=== PATIENT | male | born 1945 | race Caucasian/White ===

== ENCOUNTER → 2016-10-17 | Outpatient (CLI) | payer MEDICARE ==
[2016-10-17 09:27] LABS: AST 83 U/L (17-59); Alkaline Phosphatase 156 U/L (38-126); Anion Gap 12 mmol/L; Blood Urea Nitrogen 13 mg/dL (9-20); Calcium 9.5 mg/dL (8.4-10.2); Carbon Dioxide 21 mmol/L (22-30); Chloride 107 mmol/L (98-107); Cholesterol 147 mg/dL (<200); Glucose 267 mg/dL (74-99); HDL Cholesterol 38 mg/dL (40-60); Non-African American GFR(MDRD) >60 (>60 ml/min/1.73 sqM); Potassium 4.2 mmol/L (3.5-5.1); Sodium 140 mmol/L (137-145); Total Bilirubin 0.8 mg/dL (0.2-1.3); Total Protein 6.9 g/dL (6.3-8.2); Triglycerides 227 mg/dL (<150)
[2016-10-17 09:34] LABS: ALT 68 U/L (21-72)
== END | disposition home or self-care (01) ==
LOC: LABWHC1 08:15
PROVIDERS: ATTEND Internal Medicine Endocrinology, Diabetes & Metabolism
DX: E11.65 Type 2 diabetes mellitus with hyperglycemia (principal)
CPT/HCPCS: 36415; 80053; 80061; 82043

== ENCOUNTER → 2016-10-25 | Outpatient (CLI) | payer MEDICARE ==
--- NOTE | 2016-10-25 18:42 | MR ---
EXAMINATION TYPE: MR brain wo con DATE OF EXAM: 10/25/2016 COMPARISON: NONE HISTORY: tremors CONTRAST: Performed utilizing 0 mL intravenous MultiHance gadolinium contrast. TECHNIQUE: Multiplanar, multiecho imaging on a 3.0 Justine magnet is performed through the brain. Stud y is performed within 24 hours of arrival to the hospital. The craniovertebral junction is normal. The pituitary is normal. Diffusion-weighted imaging is performed. No abnormal hyperintensity is present to suggest an acute i ntracranial infarct or acute ischemic change. There are scattered punctate areas of hyperintensity on T2 and Inversion Recovery weighted sequences which are non-specific but can be related to microvascular ischemic changes. Ventricles and sulci are prominent for the patient age. Cerebellar pontine angles are clear. Internal auditory canals appear unremarkable. Mucosal thickening is within ethmoid air cells right frontal sinus and left maxillary sinus. IMPRESSIONS: 1. Multiple bilateral scattered punctate white matter changes which are nonspecific. Correlate for ch ronic appearing microvascular ischemic change. Vasculitis Lyme disease multiple sclerosis are conside red within the differential. 2. Age-related atrophy. 3. Paranasal sinus disease
== END | disposition home or self-care (01) ==
LOC: RADMRIMAIN 17:43
PROVIDERS: ATTEND Psychiatry & Neurology Pain Medicine
DX: R90.82 White matter disease, unspecified (principal); G31.1 Senile degeneration of brain, not elsewhere classified
CPT/HCPCS: 70551

== ENCOUNTER → 2016-11-02 | Outpatient (CLI) | payer MEDICARE ==
--- NOTE | 2016-11-02 15:24 | NM ---
EXAMINATION TYPE: NM DatScan Brain SPECT DATE OF EXAM: 11/02/2016 COMPARISON: NONE HISTORY: Trauma. TECHNIQUE: 10 drops of Lugol's solution was administered 1 hour prior to injection as a thyroid bloc veto agent. After the administration of 4.5 mCi I-123 Ioflupane DaTscan. Images obtained [address] injection. SPECT images of the brain were acquired with axial and coronal reconstructions. FINDINGS: There is a normal comma shape to the striata. There is symmetric activity. IMPRESSION: NORMAL NUCLEAR MEDICINE DATSCAN STUDY.
== END ==
LOC: RADNMMAIN 09:42
PROVIDERS: ATTEND Psychiatry & Neurology Neurology
DX: R25.1 Tremor, unspecified (principal)
CPT/HCPCS: 78607; A9584

== ENCOUNTER 2017-04-15 00:36 | Emergency (ER) | payer MEDICARE ==
[2017-04-15 00:43] LABS: Glucose,Whole Blood 306 mg/dL (75-99)
[2017-04-15 00:46] VITALS: RESP 18
[2017-04-15] MEDS ORDERED: SODIUM CHLORIDE 0.9% 1,000 ML IV STA (00:54)
--- NOTE | 2017-04-15 01:10 | ED ---
General Adult HPI - General Chief complaint: Recheck/Abnormal Lab/Rx Stated complaint: abnormal labs Time Seen by Provider: 04/15/17 00:48 Source: patient, RN notes reviewed Mode of arrival: ambulatory Limitations: no limitations - History of Present Illness Initial comments: 72-year-old male presents to the emergency department with a chief complaint of of hyperglycemia. Patient states he has not been compliant with his insulin. He states that he went to have blood work at the [place] and they called him and told him to come to the ER due to elevated glucose. He states that his symptoms. He states that he just does not always take his insulin that he forgets. No nausea no vomiting no abdominal pain. He states he feels normal. Patient denies any recent fever, chills, shortness of breath, chest pain, back pain, abdominal pain, nausea vomiting, numbness or tingling, dysuria or hematuria, constipation or diarrhea, headaches or visual changes, or any other current symptoms. - Related Data Home Medications Medication Instructions Recorded Confirmed Albuterol Sulfate [Proventil Hfa] 1 - 2 puff INHALATION Q6HR PRN 11/03/14 Atenolol [Tenormin] 25 mg PO HS 11/03/14 01/14/15 Budesonide/Formoterol Fumarate 2 puff INHALATION BID 11/03/14 01/14/15 [Symbicort 160-4.5 Mcg Inhaler] Citalopram Hydrobromide 40 mg PO DAILY 11/03/14 01/14/15 [Citalopram HBr] Levothyroxine Sodium [Synthroid] 50 mcg PO DAILY 11/03/14 01/14/15 Losartan Potassium [Cozaar] 100 mg PO DAILY 11/03/14 01/14/15 Novolog Insulin Pump 80 - 90 unit SQ DAILY PRN 11/03/14 01/14/15 Omeprazole 40 mg PO BID 11/03/14 01/14/15 metFORMIN HCL 1,000 mg PO BID 11/03/14 01/14/15 Nitroglycerin Sl Tabs [Nitrostat] 0.4 mg SUBLINGUAL Q5M PRN 01/12/15 01/12/15 Allergies Allergy/AdvReac Type Severity Reaction Status Date / Time Penicillins Allergy Rash/Hives Verified 04/15/17 00:37 Review of Systems ROS Statement: Those systems with pertinent positive or pertinent negative responses have been documented in the HPI. ROS Other: All systems not noted in ROS Statement are negative. 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 SPEARS- LAST ONE A MONTH AGO, DALY' S ESOPHAGUS History of Any Multi-Drug Resistant Organisms: None Reported Past Surgical History: Appendectomy, Heart Catheterization, Hernia Repair Additional Past Surgical History / Comment(s): COLONOSCOPY,REMOVAL OF MELANOMA OFF LT EYELID WITH SKIN GRAFT, RIGHT ING HERNIA & UMBILICAL HERNIA REPAIR, EXC. CATARACT RT EYE WITH LENS IMPLANT Past Anesthesia/Blood Transfusion Reactions: No Reported Reaction Past Psychological History: No Psychological Hx Reported Smoking Status: Former smoker Past Alcohol Use History: Occasional Past Drug Use History: None Reported - Past Family History Mother Family Medical History: Cancer, Hypertension Additional Family Medical History / Comment(s): COLON CA Father Additional Family Medical History / Comment(s): HEART PROBLEMS General Exam - General Exam Comments Initial Comments: General: The patient is awake and alert, in no distress, and does not appear acutely ill. Eye: Pupils are equal, round and reactive to light, extra-ocular movements are intact; there is normal conjunctiva bilaterally. No signs of icterus. Ears, nose, mouth and throat: There are moist mucous membranes. Neck: The neck is supple, there is no tenderness. Cardiovascular: There is a regular rate and rhythm. No murmur, rub or gallop is appreciated. Respiratory: Lungs are clear to auscultation, respirations are non-labored, breath sounds are equal. No wheezes, stridor, rales, or rhonchi. Gastrointestinal: Soft, non-distended, non-tender abdomen without masses or organomegaly noted. There is no rebound or guarding present. No CVA tenderness. Bowel sounds are unremarkable. Back: There is no tenderness to palpation in the midline. There is no obvious deformity. No rashes noted. Musculoskeletal: Normal ROM, no tenderness, There is no pedal edema. There is no calf tenderness or swelling. Sensation intact. Pulses equal bilaterally 2+. Neurological: CN II-XII intact, There are no obvious motor or sensory deficits. Coordination appears grossly intact. Speech is normal. Skin: Skin is warm and dry and no rashes or lesions are noted. Psychiatric: Cooperative, appropriate mood & affect, normal judgment. Limitations: no limitations Course Vital Signs 04/15/17 00:37 Temperature 97.6 F Pulse Rate 97 Respiratory 18 Rate Blood Pressure 184/88 O2 Sat by Pulse 100 Oximetry Medical Decision Making - Medical Decision Making 72-year-old male presents emergency department with a chief complaint of hyperglycemia. At this time patient's lab work is otherwise stable. We did educate about the importance of treating his diabetes. We did educate the importance of following up or return parameters and all questions. He stated that he understood and he is in agreement with this plan. All questions have been answered. He will be discharged home. - Lab Data Result diagrams: 04/15/17 01:14 04/15/17 01:14 Lab Results 04/15/17 04/15/17 04/15/17 Range/Units 00:40 01:14 01:14 WBC 7.2 (3.8-10.6) k/uL RBC 5.13 (4.30-5.90) m/uL Hgb 12.7 L (13.0-17.5) gm/dL Hct 39.6 (39.0-53.0) % MCV 77.2 L (80.0-100.0) fL MCH 24.7 L (25.0-35.0) pg MCHC 32.0 (31.0-37.0) g/dL RDW 19.1 H (11.5-15.5) % Plt Count 161 (150-450) k/uL Neutrophils % 51 % Lymphocytes % 39 % Monocytes % 5 % Eosinophils % 4 % Basophils % 1 % Neutrophils # 3.7 (1.3-7.7) k/uL Lymphocytes # 2.8 (1.0-4.8) k/uL Monocytes # 0.4 (0-1.0) k/uL Eosinophils # 0.3 (0-0.7) k/uL Basophils # 0.0 (0-0.2) k/uL Hypochromasia Marked Poikilocytosis Slight Anisocytosis Slight Microcytosis Slight Sodium 139 (137-145) mmol/L Potassium 4.1 (3.5-5.1) mmol/L Chloride 105 (98-107) mmol/L Carbon Dioxide 21 L (22-30) mmol/L Anion Gap 13 mmol/L BUN 20 (9-20) mg/dL Creatinine 1.00 (0.66-1.25) mg/dL Est GFR (MDRD) Af Amer >60 (>60 ml/min/1.73 sqM) Est GFR (MDRD) Non-Af >60 (>60 ml/min/1.73 sqM) Glucose 285 H (74-99) mg/dL POC Glucose (mg/dL) 306 H (75-99) mg/dL POC Glu Dynamite Reclaimer ID Xenia Delgado Calcium 9.5 (8.4-10.2) mg/dL Phosphorus 3.4 (2.5-4.5) mg/dL Magnesium 1.9 (1.6-2.3) mg/dL Total Bilirubin 0.5 (0.2-1.3) mg/dL AST 65 H (17-59) U/L ALT 66 (21-72) U/L Alkaline Phosphatase 201 H (38-126) U/L Total Protein 7.2 (6.3-8.2) g/dL Albumin 4.2 (3.5-5.0) g/dL Amylase 80 (30-110) U/L Lipase 117 (23-300) U/L Urine Color Urine Appearance (Clear) Urine pH (5.0-8.0) Ur Specific [place] (1.001-1.035) Urine Protein (Negative) Urine Glucose (UA) (Negative) Urine Ketones (Negative) Urine Blood (Negative) Urine Nitrite (Negative) Urine Bilirubin (Negative) Urine Urobilinogen (<2.0) mg/dL Ur Leukocyte Esterase (Negative) Acetone, Qual Negative (Negative) 04/15/17 Range/Units 01:14 WBC (3.8-10.6) k/uL RBC (4.30-5.90) m/uL Hgb (13.0-17.5) gm/dL Hct (39.0-53.0) % MCV (80.0-100.0) fL MCH (25.0-35.0) pg MCHC (31.0-37.0) g/dL RDW (11.5-15.5) % Plt Count (150-450) k/uL Neutrophils % % Lymphocytes % % Monocytes % % Eosinophils % % Basophils % % Neutrophils # (1.3-7.7) k/uL Lymphocytes # (1.0-4.8) k/uL Monocytes # (0-1.0) k/uL Eosinophils # (0-0.7) k/uL Basophils # (0-0.2) k/uL Hypochromasia Poikilocytosis Anisocytosis Microcytosis Sodium (137-145) mmol/L Potassium (3.5-5.1) mmol/L Chloride (98-107) mmol/L Carbon Dioxide (22-30) mmol/L Anion Gap mmol/L BUN (9-20) mg/dL Creatinine (0.66-1.25) mg/dL Est GFR (MDRD) Af Amer (>60 ml/min/1.73 sqM) Est GFR (MDRD) Non-Af (>60 ml/min/1.73 sqM) Glucose (74-99) mg/dL POC Glucose (mg/dL) (75-99) mg/dL POC Glu Dynamite Reclaimer ID Calcium (8.4-10.2) mg/dL Phosphorus (2.5-4.5) mg/dL Magnesium (1.6-2.3) mg/dL Total Bilirubin (0.2-1.3) mg/dL AST (17-59) U/L ALT (21-72) U/L Alkaline Phosphatase (38-126) U/L Total Protein (6.3-8.2) g/dL Albumin (3.5-5.0) g/dL Amylase (30-110) U/L Lipase (23-300) U/L Urine Color Yellow Urine Appearance Clear (Clear) Urine pH 5.5 (5.0-8.0) Ur Specific [place] 1.029 (1.001-1.035) Urine Protein Negative (Negative) Urine Glucose (UA) 4+ H (Negative) Urine Ketones Negative (Negative) Urine Blood Negative (Negative) Urine Nitrite Negative (Negative) Urine Bilirubin Negative (Negative) Urine Urobilinogen <2.0 (<2.0) mg/dL Ur Leukocyte Esterase Negative (Negative) Acetone, Qual (Negative) Disposition Clinical Impression: Hyperglycemia due to type 2 diabetes mellitus Disposition: HOME SELF-CARE Condition: Stable Instructions: Diabetic Hyperglycemia (ED) Additional Instructions: Please use medication as discussed. Please follow up with family doctor if symptoms have not improved over the next two days. Please return to the emergency room if your symptoms increase or worsen or for any other concerns. Referrals: Chana Shoemaker MD [Primary Care Provider] - 1-2 days Time of Disposition: 02:08
[2017-04-15 01:25] LABS: Appearance,Urine Clear (Clear); Bilirubin,Urine Negative (Negative); Glucose,Urine (UA) 4+ (Negative); Ketones,Urine Negative (Negative); Leukocyte Esterase,Urine Negative (Negative); Nitrite,Urine Negative (Negative); PH, Urine 5.5 (5.0-8.0); Protein,Urine Negative (Negative); Specific Gravity,Urine 1.029 (1.001-1.035); UA Billing (MACRO vs. MICRO) CHEM; Urobilinogen,Urine <2.0 mg/dL (<2.0)
[2017-04-15 01:26] LABS: Anisocytosis Slight; Basophils % (A) 1 %; CH 23.4; CHCM 30.6; Eosinophils # (A) 0.3 k/uL (0-0.7); Eosinophils % (A) 4 %; HCT 39.6 % (39.0-53.0); HDW 3.42; HGB 12.7 gm/dL (13.0-17.5); Hypochromasia Marked; Luc # (Auto) 0.09; Luc % (Auto) 1; Lymphocytes # (A) 2.8 k/uL (1.0-4.8); Lymphocytes % (A) 39 %; MCH 24.7 pg (25.0-35.0); MCV 77.2 fL (80.0-100.0); Mean Platelet Volume 8.3; Microcytosis Slight; Monocytes # (A) 0.4 k/uL (0-1.0); Monocytes % (A) 5 %; Neutrophils # (A) 3.7 k/uL (1.3-7.7); Neutrophils % (A) 51 %; Poikilocytosis Slight; RBC 5.13 m/uL (4.30-5.90); RDW 19.1 % (11.5-15.5); WBC 7.2 k/uL (3.8-10.6)
[2017-04-15 01:41] LABS: ALT 66 U/L (21-72); AST 65 U/L (17-59); Alkaline Phosphatase 201 U/L (38-126); Amylase 80 U/L (30-110); Anion Gap 13 mmol/L; Blood Urea Nitrogen 20 mg/dL (9-20); Calcium 9.5 mg/dL (8.4-10.2); Carbon Dioxide 21 mmol/L (22-30); Chloride 105 mmol/L (98-107); Glucose 285 mg/dL (74-99); Magnesium 1.9 mg/dL (1.6-2.3); Non-African American GFR(MDRD) >60 (>60 ml/min/1.73 sqM); Phosphorus 3.4 mg/dL (2.5-4.5); Potassium 4.1 mmol/L (3.5-5.1); Sodium 139 mmol/L (137-145); Total Bilirubin 0.5 mg/dL (0.2-1.3); Total Protein 7.2 g/dL (6.3-8.2)
[2017-04-15 02:29] VITALS: BP 149/69; PULSE 84; TEMP 98.1
== END 2017-04-15 02:27 | disposition home or self-care (01) ==
LOC: EC 00:36
DX: E11.65 Type 2 diabetes mellitus with hyperglycemia (principal); J45.909 Unspecified asthma, uncomplicated; K21.9 Gastro-esophageal reflux disease without esophagitis; I10 Essential (primary) hypertension; E07.9 Disorder of thyroid, unspecified; Z85.820 Personal history of malignant melanoma of skin; Z87.891 Personal history of nicotine dependence; Z79.4 Long term (current) use of insulin; Z79.51 Long term (current) use of inhaled steroids; Z79.899 Other long term (current) drug therapy; Z88.0 Allergy status to penicillin
CPT/HCPCS: 36415; 80053; 81003; 82009; 82150; 83690; 83735; 84100; 85025; 96360; 99283

== ENCOUNTER 2017-09-08 06:26 | Day surgery (SDC) | payer MEDICARE ==
[2017-09-06 14:46] VITALS: BMI 32.8
[~2017-09-08 06:26] MED LIST: LACTATED RINGERS 1,000 ML IV SCH
[2017-09-08 07:01] VITALS: TEMP 98.3
[2017-09-08 07:11] LABS: Glucose,Whole Blood 359 mg/dL (75-99)
[2017-09-08] MEDS ORDERED: LIDOCAINE 1% 20 ML VIAL (10MG/ML) FOR IV START INTRADERMA ONE (07:14)
[2017-09-08] MEDS ORDERED: INSULIN ASPART 100 UNIT/ML 1 ML 10 ML VIAL SQ ONE (07:15)
[2017-09-08] MEDS ORDERED: PROPOFOL 10 MG/ML 20 ML VIAL IV ONE (07:39)
--- NOTE | 2017-09-08 08:02 | P.PCN ---
Date of Procedure: 09/08/17 Procedure(s) Performed: BRIEF HISTORY: Patient is a 72-year-old, pleasant, white male, scheduled for an upper endoscopy as a part of evaluation of long-standing history of Leonard's esophagus and gastroesophageal reflux disease. He states that he has been having black tarry stools for the last 1 month duration. His last upper endoscopy was in and colonoscopy was in December 2014. Because of the black tarry stools scheduled for an upper endoscopy today. PROCEDURE PERFORMED: Esophagogastroduodenoscopy with biopsy. PREOPERATIVE DIAGNOSIS: History of Leonard's esophagus/GERD and Melena of 1 month duration IV sedation per anesthesia. PROCEDURE: After informed consent was obtained, the patient was brought into the endoscopy unit. IV sedation was administered by Anesthesia under continuous monitoring. Initially the Olympus GIF-140 video endoscope was inserted into the mouth. Esophagus intubated without any difficulty. It was gradually advanced into the stomach and duodenum and carefully examined. The bulb and the second part of the duodenum appeared normal. The scope at this time was withdrawn to the stomach, adequately insufflated with air, and upon careful examination, mucosa of the antrum, body, cardia and the fundus appeared normal. The scope was then withdrawn into the esophagus. Moderate size hiatal hernia noted. The GE junction was located at 35 cm from the incisors. There was long segment of Leonard's esophagus extended from 25-35 cm from incisors and multiple biopsies were done from this area. There was a small fissure ulceration noted at 35 cm from incisors in the segment of Leonard's esophagus measuring 5 mm which was also biopsied. The rest of the esophagus appeared normal and the patient tolerated the procedure well. IMPRESSION: 1. Long segment Leonard's esophagus extended from 25-35 cm from the incisors status post multiple biopsies to rule out dysplasia. 2. 5 mm superficial ulcer in the segment of Leonard's esophagus at 39 cm from the incisors status post biopsy. RECOMMENDATIONS: The findings of this examination were discussed with the patient as well as his family. He was advised to follow with the biopsy results. He will continue with Prilosec 20 mg twice daily and follow antireflux measures. He will be seen in the office in 2-3 weeks. If he still remains persistently anemic we will consider a small bowel capsule endoscopy to investigate further.
[2017-09-08 08:03] VITALS: RESP 20
[2017-09-08 08:07] LABS: Glucose,Whole Blood 356 mg/dL (75-99)
[2017-09-08 08:21] VITALS: BP 159/84; PULSE 69
== END 2017-09-08 08:55 | disposition home or self-care (01) ==
LOC: ORWHC2ENDO 06:26
PROVIDERS: ATTEND Internal Medicine Gastroenterology
DX: K22.70 Barrett's esophagus without dysplasia (principal); K21.0 Gastro-esophageal reflux disease with esophagitis; K44.9 Diaphragmatic hernia without obstruction or gangrene; K92.1 Melena; I10 Essential (primary) hypertension; I25.10 Atherosclerotic heart disease of native coronary artery without angina pectoris; J45.909 Unspecified asthma, uncomplicated; E11.9 Type 2 diabetes mellitus without complications; F32.9 Major depressive disorder, single episode, unspecified; Z79.84 Long term (current) use of oral hypoglycemic drugs; Z79.82 Long term (current) use of aspirin; Z79.4 Long term (current) use of insulin; Z79.899 Other long term (current) drug therapy; Z88.0 Allergy status to penicillin
CPT/HCPCS: 88305; 43239; J2704

== ENCOUNTER → 2017-09-25 | Outpatient (CLI) | payer MEDICARE ==
[2017-09-25 09:02] LABS: Anisocytosis Moderate; HCT 40.8 % (39.0-53.0); HGB 12.7 gm/dL (13.0-17.5); Hypochromasia Slight; MCH 26.5 pg (25.0-35.0); MCHC 31.1 g/dL (31.0-37.0); MCV 85.3 fL (80.0-100.0); Mean Platelet Volume 7.7; Microcytosis Slight; Platelet Count 139 k/uL (150-450); RBC 4.78 m/uL (4.30-5.90); RDW 20.5 % (11.5-15.5); WBC 5.4 k/uL (3.8-10.6)
[2017-09-25 17:48] LABS: Iron Saturation 15.59 (15.00-50.00)
== END | disposition home or self-care (01) ==
LOC: LABWHC1 08:26
PROVIDERS: ATTEND Internal Medicine Gastroenterology
DX: D50.9 Iron deficiency anemia, unspecified (principal)
CPT/HCPCS: 36415; 82728; 83540; 83550; 85027

== ENCOUNTER 2017-10-17 11:13 | Emergency (ER) | payer MEDICARE ==
[2017-10-17 12:08] LABS: Anisocytosis Moderate; Appearance,Urine Clear (Clear); Basophils % (A) 0 %; Bilirubin,Urine Negative (Negative); Blood,Urine Negative (Negative); Color,Urine Yellow; Eosinophils # (A) 0.1 k/uL (0-0.7); Eosinophils % (A) 1 %; Glucose,Urine (UA) 4+ (Negative); HCT 44.2 % (39.0-53.0); HGB 14.2 gm/dL (13.0-17.5); Hypochromasia Slight; Leukocyte Esterase,Urine Negative (Negative); Lymphocytes # (A) 1.5 k/uL (1.0-4.8); Lymphocytes % (A) 20 %; MCH 27.5 pg (25.0-35.0); MCV 85.8 fL (80.0-100.0); Mean Platelet Volume 7.6; Microcytosis Slight; Monocytes # (A) 0.3 k/uL (0-1.0); Monocytes % (A) 4 %; Neutrophils # (A) 5.8 k/uL (1.3-7.7); Neutrophils % (A) 73 %; Nitrite,Urine Negative (Negative); Platelet Count 165 k/uL (150-450); Poikilocytosis Slight; Protein,Urine Negative (Negative); RBC 5.15 m/uL (4.30-5.90); RDW 20.2 % (11.5-15.5); Specific Gravity,Urine 1.026 (1.001-1.035); Urobilinogen,Urine <2.0 mg/dL (<2.0); WBC 7.8 k/uL (3.8-10.6)
[2017-10-17 12:15] LABS: Ketones,Urine 3+ (Negative)
--- NOTE | 2017-10-17 12:15 | XR ---
EXAMINATION TYPE: XR KUB DATE OF EXAM: 10/17/2017 CLINICAL DATA: 72 year-old male abdominal pain, PHH COMPARISON: None FINDINGS: Lung bases are clear. No evidence for free intraperitoneal air. No dilated small bowel or air-fluid levels. Scattered air and stool seen throughout the colon extendi ng distally into the rectum. Mild stool burden. No suspicious calcifications identified. IMPRESSION: No evidence of bowel obstruction or free intraperitoneal air.
[2017-10-17 12:18] LABS: ALT 124 U/L (21-72); AST 99 U/L (17-59); Albumin 4.3 g/dL (3.5-5.0); Alkaline Phosphatase 187 U/L (38-126); Amylase 47 U/L (30-110); Anion Gap 20 mmol/L; Blood Urea Nitrogen 11 mg/dL (9-20); Calcium 9.2 mg/dL (8.4-10.2); Carbon Dioxide 17 mmol/L (22-30); Chloride 101 mmol/L (98-107); Glucose 424 mg/dL (74-99); Lipase 46 U/L (23-300); Potassium 4.5 mmol/L (3.5-5.1); Sodium 138 mmol/L (137-145); Total Bilirubin 1.4 mg/dL (0.2-1.3)
--- NOTE | 2017-10-17 12:29 | ED ---
Abdominal Pain HPI - General Chief Complaint: Abdominal Pain Stated Complaint: Lower abdominal pain Time Seen by Provider: 10/17/17 12:15 Source: patient Mode of arrival: ambulatory Limitations: no limitations - History of Present Illness Initial Comments: The patient is a 72-year-old male with a history of hypertension, diabetes who presents with a chief complaint of left lower quadrant abdominal pain. The patient says is been going on for about a month however acutely worse for last couple of days. The patient cannot identify an inciting incident. Aggravating factors include certain movements. There are are no alleviating factors except for resting. Timing is been intermittent. Patient denies any history of colitis in the past. He has a history of an appendectomy. - Related Data Home Medications Medication Instructions Recorded Confirmed Albuterol Sulfate [Proventil Hfa] 2 puff INHALATION RT-Q6H PRN 11/03/14 10/17/17 Atenolol [Tenormin] 25 mg PO DAILY 11/03/14 10/17/17 Budesonide/Formoterol Fumarate 2 puff INHALATION RT-BID 11/03/14 10/17/17 [Symbicort 160-4.5 Mcg Inhaler] metFORMIN HCL 1,000 mg PO AC-BID 11/03/14 10/17/17 Aspirin [Adult Low Dose Aspirin EC] 81 mg PO DAILY 09/06/17 10/17/17 Citalopram Hydrobromide [CeleXA] 20 mg PO DAILY 09/06/17 10/17/17 Fenofibrate 40 mg PO DAILY 09/06/17 10/17/17 Insulin Aspart [NovoLOG Flexpen] 25 units SQ AC-TID 09/06/17 10/17/17 Insulin Glargine [Lantus] 60 unit SQ BID 09/06/17 10/17/17 Losartan/Hydrochlorothiazide 1 tab PO DAILY 09/06/17 10/17/17 [Losartan-Hctz 100-25 mg Tab] Omeprazole [PriLOSEC] 20 mg PO BID 09/06/17 10/17/17 Primidone [Mysoline] 50 mg PO HS 09/06/17 10/17/17 Atorvastatin [Lipitor] 40 mg PO DAILY 10/17/17 10/17/17 Pioglitazone HCl [Actos] 15 mg PO DAILY 10/17/17 10/17/17 Previous Rx's Medication Instructions Recorded Ciprofloxacin [Cipro Susp] 500 mg PO BID 7 Days #14 ml 10/17/17 HYDROcodone/APAP 5-325MG [Horton 1 tab PO Q6HR PRN 3 Days #12 tab 10/17/17 5-325] Ibuprofen [Motrin] 800 mg PO TID #20 tab 10/17/17 metroNIDAZOLE [Flagyl] 500 mg PO Q8HR 7 Days #21 tab 10/17/17 Allergies Allergy/AdvReac Type Severity Reaction Status Date / Time Penicillins Allergy Rash/Hives Verified 10/17/17 12:53 Review of Systems ROS Statement: Those systems with pertinent positive or pertinent negative responses have been documented in the HPI. ROS Other: All systems not noted in ROS Statement are negative. Gastrointestinal: Reports: abdominal pain, nausea Past Medical History Past Medical History: Asthma, Cancer, Chest Pain / Angina, Diabetes Mellitus, GERD/Reflux, Hyperlipidemia, Hypertension, Osteoarthritis (OA), Thyroid Disorder Additional Past Medical History / Comment(s): MELANOMA LT EYELID with SKIN GRAFT , IRON IFUSIONS (RECEIVED 09/06/17), DALY'S ESOPHAGUS, PARKINSONS., TINNITUS LEFT EAR., STATES DARK BLOODY STOOLS., FATTY LIVER., LIMITED ROM RIGHT WRIST FROM SURGERY. History of Any Multi-Drug Resistant Organisms: None Reported Past Surgical History: Appendectomy, Heart Catheterization, Hernia Repair Additional Past Surgical History / Comment(s): COLONOSCOPY, MELANOMA LT EYELID WITH SKIN GRAFT, RIGHT ING HERNIA & UMBILICAL HERNIA REPAIR, CATARACT RT EYE, HIATAL HERNIA., RIGHT WRIST FUSION. Past Anesthesia/Blood Transfusion Reactions: No Reported Reaction Past Psychological History: Anxiety, Depression Smoking Status: Former smoker Past Alcohol Use History: Occasional Past Drug Use History: None Reported - Past Family History Mother Family Medical History: Cancer, Hypertension Additional Family Medical History / Comment(s): COLON CA Father Additional Family Medical History / Comment(s): HEART PROBLEMS General Exam Limitations: no limitations General appearance: alert, in no apparent distress Head exam: Present: atraumatic, normocephalic Eye exam: Present: normal appearance ENT exam: Present: normal exam Neck exam: Present: normal inspection Respiratory exam: Present: normal lung sounds bilaterally. Absent: respiratory distress, wheezes Cardiovascular Exam: Present: regular rate, normal rhythm GI/Abdominal exam: Present: soft, tenderness (Patient is tenderness in the left lower quadrant. Abdomen is non-peritoneal.). Absent: distended Rectal exam: Present: normal inspection, normal rectal tone, hemorrhoids, other (No gross blood on rectal exam,) Extremities exam: Present: normal inspection Back exam: Present: normal inspection, full ROM Neurological exam: Present: alert, oriented X3 Psychiatric exam: Present: normal affect, normal mood Skin exam: Present: warm, dry, intact Course Vital Signs 10/17/17 10/17/17 10/17/17 11:22 14:07 14:54 Temperature 99.0 F Pulse Rate 92 78 83 Respiratory 20 16 16 Rate Blood Pressure 154/73 184/88 194/97 O2 Sat by Pulse 98 98 100 Oximetry Medical Decision Making - Medical Decision Making Patient presents with a chief complaint of left lower quadrant abdominal pain. On initial evaluation, vital signs are stable, patient is in no acute distress. Patient to be evaluated with basic abdominal labs including a lipase and liver profile. Patient will be sent for computed tomography scan of the abdomen and pelvis with contrast. EKG performed at 1325 shows normal sinus rhythm with a rate of 77 bpm. EKG is otherwise unremarkable. 3:19 PM Lab evaluation this patient is unremarkable. Computed tomography scan of the abdomen and pelvis shows moderate diverticulitis of the sigmoid colon. I reevaluation, patient appears comfortable. The patient's repeat vital signs show hypertension however he did not take any of his antihypertensives today. Patient is asymptomatic. At this time, patient is stable for discharge and outpatient management. Discussed the use of ciprofloxacin and Flagyl with the patient. The patient was prescribed 3 days of Horton, and Motrin 800. Patient instructed to follow up with primary care 12 days, return to the emergency department if symptoms worsen or change. - Lab Data Result diagrams: 10/17/17 11:52 10/17/17 11:52 Lab Results 10/17/17 10/17/17 10/17/17 Range/Units 11:52 11:52 11:52 WBC 7.8 (3.8-10.6) k/uL RBC 5.15 (4.30-5.90) m/uL Hgb 14.2 (13.0-17.5) gm/dL Hct 44.2 (39.0-53.0) % MCV 85.8 (80.0-100.0) fL MCH 27.5 (25.0-35.0) pg MCHC 32.0 (31.0-37.0) g/dL RDW 20.2 H (11.5-15.5) % Plt Count 165 (150-450) k/uL Neutrophils % 73 % Lymphocytes % 20 % Monocytes % 4 % Eosinophils % 1 % Basophils % 0 % Neutrophils # 5.8 (1.3-7.7) k/uL Lymphocytes # 1.5 (1.0-4.8) k/uL Monocytes # 0.3 (0-1.0) k/uL Eosinophils # 0.1 (0-0.7) k/uL Basophils # 0.0 (0-0.2) k/uL Hypochromasia Slight Poikilocytosis Slight Anisocytosis Moderate Microcytosis Slight Sodium 138 (137-145) mmol/L Potassium 4.5 (3.5-5.1) mmol/L Chloride 101 (98-107) mmol/L Carbon Dioxide 17 L (22-30) mmol/L Anion Gap 20 mmol/L BUN 11 (9-20) mg/dL Creatinine 0.80 (0.66-1.25) mg/dL Est GFR (CKD-EPI)AfAm >90 (>60 ml/min/1.73 sqM) Est GFR (CKD-EPI)NonAf >90 (>60 ml/min/1.73 sqM) Glucose 424 H (74-99) mg/dL POC Glucose (mg/dL) (75-99) mg/dL POC Glu Inbound Customer Service Representative ID Calcium 9.2 (8.4-10.2) mg/dL Total Bilirubin 1.4 H (0.2-1.3) mg/dL AST 99 H (17-59) U/L ALT 124 H (21-72) U/L Alkaline Phosphatase 187 H (38-126) U/L Total Protein 7.0 (6.3-8.2) g/dL Albumin 4.3 (3.5-5.0) g/dL Amylase 47 (30-110) U/L Lipase 46 (23-300) U/L Urine Color Yellow Urine Appearance Clear (Clear) Urine pH 5.0 (5.0-8.0) Ur Specific [place] 1.026 (1.001-1.035) Urine Protein Negative (Negative) Urine Glucose (UA) 4+ H (Negative) Urine Ketones 3+ H (Negative) Urine Blood Negative (Negative) Urine Nitrite Negative (Negative) Urine Bilirubin Negative (Negative) Urine Urobilinogen <2.0 (<2.0) mg/dL Ur Leukocyte Esterase Negative (Negative) Stool Occult Blood (Negative) 10/17/17 10/17/17 Range/Units 12:39 13:04 WBC (3.8-10.6) k/uL RBC (4.30-5.90) m/uL Hgb (13.0-17.5) gm/dL Hct (39.0-53.0) % MCV (80.0-100.0) fL MCH (25.0-35.0) pg MCHC (31.0-37.0) g/dL RDW (11.5-15.5) % Plt Count (150-450) k/uL Neutrophils % % Lymphocytes % % Monocytes % % Eosinophils % % Basophils % % Neutrophils # (1.3-7.7) k/uL Lymphocytes # (1.0-4.8) k/uL Monocytes # (0-1.0) k/uL Eosinophils # (0-0.7) k/uL Basophils # (0-0.2) k/uL Hypochromasia Poikilocytosis Anisocytosis Microcytosis Sodium (137-145) mmol/L Potassium (3.5-5.1) mmol/L Chloride (98-107) mmol/L Carbon Dioxide (22-30) mmol/L Anion Gap mmol/L BUN (9-20) mg/dL Creatinine (0.66-1.25) mg/dL Est GFR (CKD-EPI)AfAm (>60 ml/min/1.73 sqM) Est GFR (CKD-EPI)NonAf (>60 ml/min/1.73 sqM) Glucose (74-99) mg/dL POC Glucose (mg/dL) 394 H (75-99) mg/dL POC Glu Inbound Customer Service Representative ID Xenia Noe Calcium (8.4-10.2) mg/dL Total Bilirubin (0.2-1.3) mg/dL AST (17-59) U/L ALT (21-72) U/L Alkaline Phosphatase (38-126) U/L Total Protein (6.3-8.2) g/dL Albumin (3.5-5.0) g/dL Amylase (30-110) U/L Lipase (23-300) U/L Urine Color Urine Appearance (Clear) Urine pH (5.0-8.0) Ur Specific [place] (1.001-1.035) Urine Protein (Negative) Urine Glucose (UA) (Negative) Urine Ketones (Negative) Urine Blood (Negative) Urine Nitrite (Negative) Urine Bilirubin (Negative) Urine Urobilinogen (<2.0) mg/dL Ur Leukocyte Esterase (Negative) Stool Occult Blood Positive (Negative) Disposition Clinical Impression: Diverticulitis large intestine Disposition: HOME SELF-CARE Condition: Good Instructions: Diverticulitis (ED) Is patient prescribed a controlled substance at d/c from ED?: Yes Referrals: Chana Shoemaker MD [Primary Care Provider] - 1-2 days
[2017-10-17] MEDS ORDERED: RX INFO: IV CONTRAST WAS GIVEN 1 EACH MISC MISCELLANE PRN (12:39)
[2017-10-17] MEDS: SODIUM CHLORIDE 0.9% 2,000 ML IV ONE ×2 (13:08→13:09)
[2017-10-17 13:13] LABS: Glucose,Whole Blood 394 mg/dL (75-99)
--- NOTE | 2017-10-17 14:56 | CT ---
EXAMINATION TYPE: CT abdomen pelvis w con DATE OF EXAM: 10/17/2017 COMPARISON: 01/22/2015 HISTORY: 72-year-old male complains of LLQ pain. TECHNIQUE: Contiguous axial scanning of the abdomen and pelvis following administration of 100 ml Omn ipaque 300 IV contrast. Delayed images through the kidneys and coronal/sagittal reconstructions perf ormed. CT DLP: 1497.3 mGycm Automated exposure control for dose reduction was used. FINDINGS: Heart normal size without pericardial effusion. Mild emphysematous change and some strandy atelectasi s/scarring at the lung bases. No pleural effusion. There is a small hiatal hernia and some mild circumferential wall thickening of the distal esophagus. Liver enlarged measuring 20.7 cm craniocaudal with diffuse low-attenuation. Small vascular blush layla pheral hepatic lobe likely small area of vascular shunting, axial image 33. Some images suggest sligh t contour nodularity of the liver. Portal venous system is patent. No biliary ductal dilatation. Gallbladder, adrenal glands, right kidney, and pancreas within normal limits. Spleen enlarged measuring 15.4 cm. Subcentimeter hypodensity anterior left kidney too small for accurate CT characterization, unchanged, likely cyst. Mild to moderate atherosclerotic calcifications abdominal aorta. No dilated small bowel, free fluid, or free air. No mesenteric or retroperitoneal lymphadenopathy. Mild stool burden. There is focal moderate wall thickening and surrounding inflammatory fat stranding with some tracking edema along the proximal sigmoid that seems to be centered on a diverticulum. Bladder urine distended. Patulous bilateral inguinal canals. No abnormal fluid collection in the pelv is or pelvic lymphadenopathy. Bones: Mild degenerative changes at the hips. Additional degenerative changes throughout the lumbar s pine. No osseous destructive process. Fatty matrix hemangioma within T8 vertebral body. IMPRESSION: 1. MODERATE FOCAL COLONIC INFLAMMATION ALONG THE PROXIMAL SIGMOID SEEMS TO BE CENTERED AT A DIVERTICU LUM. FINDINGS SUGGEST MODERATE ACUTE DIVERTICULITIS. NO ABSCESS OR FREE AIR. FOLLOW-UP COLONOSCOPY AF TER SUCCESSFUL TREATMENT. 2. 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 SEVERAL IMAGES SUGGEST SLIGHT NODULAR CONTOUR. LASHONDA ELATE FOR POSSIBLE CIRRHOSIS. 3. SPLENOMEGALY (15.4 CM). 4. SMALL HIATAL HERNIA. MILD CIRCUMFERENTIAL WALL THICKENING OF THE DISTAL ESOPHAGUS JUST ABOVE COULD REPRESENT ESOPHAGITIS. CORRELATE WITH PATIENT'S SYMPTOMS.
[2017-10-17 15:38] VITALS: BP 168/71; PULSE 75; RESP 18; TEMP 97.4
== END 2017-10-17 15:50 | disposition home or self-care (01) ==
LOC: EC 11:13
DX: K57.32 Diverticulitis of large intestine without perforation or abscess without bleeding (principal); I10 Essential (primary) hypertension; K64.9 Unspecified hemorrhoids; Z87.891 Personal history of nicotine dependence; Z88.0 Allergy status to penicillin; E78.5 Hyperlipidemia, unspecified; E11.9 Type 2 diabetes mellitus without complications; J45.909 Unspecified asthma, uncomplicated; K21.9 Gastro-esophageal reflux disease without esophagitis; M19.90 Unspecified osteoarthritis, unspecified site; F32.9 Major depressive disorder, single episode, unspecified; Z79.4 Long term (current) use of insulin; Z79.51 Long term (current) use of inhaled steroids; Z79.82 Long term (current) use of aspirin; Z79.899 Other long term (current) drug therapy; Z85.820 Personal history of malignant melanoma of skin; Z98.890 Other specified postprocedural states; Z86.79 Personal history of other diseases of the circulatory system; Z90.49 Acquired absence of other specified parts of digestive tract; Z80.0 Family history of malignant neoplasm of digestive organs; Z82.49 Family history of ischemic heart disease and other diseases of the circulatory system
CPT/HCPCS: 36415; 93005; 80053; 82150; 83690; 85025; 82272; 81003; 74018; 74177; 99284; 96360; Q9967

== ENCOUNTER → 2018-07-24 | Outpatient (CLI) | payer MEDICARE ==
[2018-07-24 12:11] LABS: Basophils # (A) 0.1 k/uL (0-0.2); Basophils % (A) 1 %; Eosinophils # (A) 0.1 k/uL (0-0.7); Eosinophils % (A) 2 %; HCT 50.7 % (39.0-53.0); HGB 16.6 gm/dL (13.0-17.5); Lymphocytes # (A) 1.8 k/uL (1.0-4.8); Lymphocytes % (A) 36 %; MCH 30.5 pg (25.0-35.0); MCHC 32.8 g/dL (31.0-37.0); Mean Platelet Volume 8.1; Monocytes # (A) 0.2 k/uL (0-1.0); Monocytes % (A) 3 %; Neutrophils % (A) 57 %; Platelet Count 168 k/uL (150-450); RBC 5.45 m/uL (4.30-5.90); RDW 14.2 % (11.5-15.5); WBC 5.2 k/uL (3.8-10.6)
[2018-07-24 13:14] LABS: Appearance,Urine Clear (Clear); Bilirubin,Urine Negative (Negative); Blood,Urine Negative (Negative); Color,Urine Light Yellow; Glucose,Urine (UA) 4+ (Negative); Ketones,Urine 1+ (Negative); Leukocyte Esterase,Urine Negative (Negative); Nitrite,Urine Negative (Negative); Protein,Urine Negative (Negative); Specific Gravity,Urine 1.027 (1.001-1.035); Urobilinogen,Urine <2.0 mg/dL (<2.0)
[2018-07-24 14:55] LABS: Erythrocyte Sedimentation Rate 7 mm/hr (0-15)
[2018-07-24 16:28] LABS: ALT 62 U/L (10-49); AST 48 U/L (14-35); Albumin/Globulin Ratio 1.91 (1.60-3.17); Alkaline Phosphatase 151 U/L (41-126); Calcium 9.6 mg/dL (8.7-10.3); Cancer Antigen 19-9 60.7 U/mL (0.0-34.9); Carbon Dioxide 24.8 mmol/L (21.6-31.8); Chloride 93 mmol/L (96-109); Cholesterol 249 mg/dL (0-200); Globulin 2.3 g/dL (1.6-3.3); Potassium 4.7 mmol/L (3.5-5.5); Sodium 135 mmol/L (135-145); Total Bilirubin 1.3 mg/dL (0.2-1.2); Total Protein 6.7 g/dL (6.2-8.2)
[2018-07-25 10:52] LABS: Glucose 539 mg/dL (70-110)
== END | disposition home or self-care (01) ==
LOC: LABWHC1 10:39
PROVIDERS: ATTEND Internal Medicine
DX: R63.4 Abnormal weight loss (principal); R30.0 Dysuria; Z12.5 Encounter for screening for malignant neoplasm of prostate; E78.5 Hyperlipidemia, unspecified; R79.89 Other specified abnormal findings of blood chemistry
CPT/HCPCS: 36415; 80053; 80061; 81003; 82378; 83721; 84153; 84439; 84443; 85025; 85652; 86301; 87086

== ENCOUNTER 2018-07-25 10:22 | Emergency (ER) | payer MEDICARE ==
[2018-07-25 10:34] VITALS: RESP 16
[2018-07-25] MEDS ORDERED: SODIUM CHLORIDE 0.9% 1,000 ML IV STA (11:17)
--- NOTE | 2018-07-25 11:39 | ED ---
General Adult HPI - General Chief complaint: Recheck/Abnormal Lab/Rx Stated complaint: Hyperglycemia Time Seen by Provider: 07/25/18 10:53 Source: patient, RN notes reviewed, old records reviewed Mode of arrival: ambulatory Limitations: no limitations - History of Present Illness Initial comments: 73-year-old male presents emergency department today. He complains of abnormal lab values by PCP. Patient reports he had lab work done yesterday. At this time he was brought in for high blood sugar. He has a known diabetic and manages his diabetes with insulin. He is PCP called him and told to come to the ER. He also reports he's had a significant weight loss within the past 4 months. Patient states that he has no physical pain at this time. He otherwise feels well, Patient does report occasional back pain.Patient denies any recent fever, chills, shortness of breath, chest pain, , abdominal pain, nausea vomiting, numbness or tingling, dysuria or hematuria, constipation or diarrhea, headaches or visual changes, or any other current symptoms - Related Data Home Medications Medication Instructions Recorded Confirmed Albuterol Sulfate [Proventil Hfa] 2 puff INHALATION RT-Q6H PRN 11/03/14 07/25/18 Atenolol [Tenormin] 25 mg PO DAILY 11/03/14 07/25/18 Budesonide/Formoterol Fumarate 2 puff INHALATION RT-BID 11/03/14 07/25/18 [Symbicort 160-4.5 Mcg Inhaler] metFORMIN HCL 1,000 mg PO AC-BID 11/03/14 07/25/18 Aspirin [Adult Low Dose Aspirin EC] 81 mg PO DAILY 09/06/17 07/25/18 Citalopram Hydrobromide [CeleXA] 40 mg PO DAILY 09/06/17 07/25/18 Fenofibrate 40 mg PO DAILY 09/06/17 07/25/18 Insulin Aspart [NovoLOG Flexpen] 25 units SQ AC-TID 09/06/17 07/25/18 Losartan/Hydrochlorothiazide 1 tab PO DAILY 09/06/17 07/25/18 [Losartan-Hctz 100-25 mg Tab] Omeprazole [PriLOSEC] 20 mg PO BID 09/06/17 07/25/18 Primidone [Mysoline] 50 mg PO HS 09/06/17 07/25/18 Atorvastatin [Lipitor] 40 mg PO DAILY 10/17/17 07/25/18 Pioglitazone HCl [Actos] 15 mg PO DAILY 10/17/17 07/25/18 Allergies Allergy/AdvReac Type Severity Reaction Status Date / Time Penicillins Allergy Rash/Hives Verified 07/25/18 11:22 Review of Systems ROS Statement: Those systems with pertinent positive or pertinent negative responses have been documented in the HPI. ROS Other: All systems not noted in ROS Statement are negative. Past Medical History Past Medical History: Asthma, Cancer, Chest Pain / Angina, Diabetes Mellitus, GERD/Reflux, Hyperlipidemia, Hypertension, Osteoarthritis (OA), Thyroid Disorder Additional Past Medical History / Comment(s): MELANOMA LT EYELID with SKIN GRAFT , IRON IFUSIONS (RECEIVED 09/06/17), DALY'S ESOPHAGUS, PARKINSONS., TINNITUS LEFT EAR., STATES DARK BLOODY STOOLS., FATTY LIVER., LIMITED ROM RIGHT WRIST FROM SURGERY. History of Any Multi-Drug Resistant Organisms: None Reported Past Surgical History: Appendectomy, Heart Catheterization, Hernia Repair Additional Past Surgical History / Comment(s): COLONOSCOPY, MELANOMA LT EYELID WITH SKIN GRAFT, RIGHT ING HERNIA & UMBILICAL HERNIA REPAIR, CATARACT RT EYE, HIATAL HERNIA., RIGHT WRIST FUSION. Past Anesthesia/Blood Transfusion Reactions: No Reported Reaction Past Psychological History: Anxiety, Depression Smoking Status: Former smoker Past Alcohol Use History: Occasional Past Drug Use History: None Reported - Past Family History Mother Family Medical History: Cancer, Hypertension Additional Family Medical History / Comment(s): COLON CA Father Additional Family Medical History / Comment(s): HEART PROBLEMS General Exam - General Exam Comments Initial Comments: 73-year-old male. Alert and oriented. No significant distress. Limitations: no limitations General appearance: alert, in no apparent distress Head exam: Present: atraumatic, normocephalic, normal inspection Eye exam: Present: normal appearance, PERRL, EOMI. Absent: scleral icterus, conjunctival injection, periorbital swelling ENT exam: Present: normal exam, mucous membranes moist Neck exam: Present: normal inspection. Absent: tenderness, meningismus, lymphadenopathy Respiratory exam: Present: normal lung sounds bilaterally. Absent: respiratory distress, wheezes, rales, rhonchi, stridor Cardiovascular Exam: Present: regular rate, normal rhythm, normal heart sounds. Absent: systolic murmur, diastolic murmur, rubs, gallop, clicks GI/Abdominal exam: Present: soft, normal bowel sounds. Absent: distended, tenderness, guarding, rebound, rigid Extremities exam: Present: normal inspection, full ROM, normal capillary refill. Absent: tenderness, pedal edema, joint swelling, calf tenderness Back exam: Present: normal inspection Neurological exam: Present: alert, oriented X3, CN II-XII intact Psychiatric exam: Present: normal affect, normal mood Skin exam: Present: warm, dry, intact, normal color. Absent: rash Course Vital Signs 07/25/18 10:32 Temperature 97.4 F L Pulse Rate 100 Respiratory 16 Rate Blood Pressure 153/84 O2 Sat by Pulse 99 Oximetry Medical Decision Making - Medical Decision Making Patient's a 73-year-old male presents emergency department today for complaints of high blood sugar. He'll multiple labs completed yesterday by PCP. He did have an elevation of the CA-19-9. His blood glucose was 599 upon arrival. He was given IV fluids and a bolus of insulin. Patient blood sugar do not of 390. Patient at this time has a negative acetone. The rest of his labwork was normal. I completed a CT of the abdomen and pelvis for concerns for his weight loss and elevated cancer enzyme of 1989. This was showing some evidence of hepatosplenomegaly. No other acute process. Patient had an normal-appearing pancreas. Patient informed of all these results this time. I discussed this time this Patient has findings feel at home to continue to dose sliding scale home for managing blood sugar. I discussed the Patient can follow-up with his primary care physician. I discussed the case with Dr. Cary who agrees with discharge. - Lab Data Result diagrams: 07/25/18 11:35 07/25/18 11:35 Lab Results 07/25/18 07/25/18 07/25/18 Range/Units 11:35 11:35 11:35 WBC 5.8 (3.8-10.6) k/uL RBC 5.76 (4.30-5.90) m/uL Hgb 17.7 H (13.0-17.5) gm/dL Hct 52.9 (39.0-53.0) % MCV 91.7 (80.0-100.0) fL MCH 30.8 (25.0-35.0) pg MCHC 33.5 (31.0-37.0) g/dL RDW 14.2 (11.5-15.5) % Plt Count 165 (150-450) k/uL Neutrophils % 61 % Lymphocytes % 31 % Monocytes % 4 % Eosinophils % 3 % Basophils % 0 % Neutrophils # 3.5 (1.3-7.7) k/uL Lymphocytes # 1.8 (1.0-4.8) k/uL Monocytes # 0.2 (0-1.0) k/uL Eosinophils # 0.2 (0-0.7) k/uL Basophils # 0.0 (0-0.2) k/uL Sodium 137 (137-145) mmol/L Potassium 4.8 (3.5-5.1) mmol/L Chloride 97 L (98-107) mmol/L Carbon Dioxide 26 (22-30) mmol/L Anion Gap 14 mmol/L BUN 14 (9-20) mg/dL Creatinine 0.93 (0.66-1.25) mg/dL Est GFR (CKD-EPI)AfAm >90 (>60 ml/min/1.73 sqM) Est GFR (CKD-EPI)NonAf 82 (>60 ml/min/1.73 sqM) Glucose 599 H* (74-99) mg/dL POC Glucose (mg/dL) (75-99) mg/dL POC Glu Customer Development Manager ID Calcium 9.9 (8.4-10.2) mg/dL Total Bilirubin 1.4 H (0.2-1.3) mg/dL AST 44 (17-59) U/L ALT 65 (21-72) U/L Alkaline Phosphatase 190 H (38-126) U/L Total Protein 7.9 (6.3-8.2) g/dL Albumin 4.8 (3.5-5.0) g/dL Amylase 78 (30-110) U/L Lipase 80 (23-300) U/L Urine Color Light Yellow Urine Appearance Clear (Clear) Urine pH 5.0 (5.0-8.0) Ur Specific [place] 1.028 (1.001-1.035) Urine Protein Negative (Negative) Urine Glucose (UA) 4+ H (Negative) Urine Ketones 1+ H (Negative) Urine Blood Negative (Negative) Urine Nitrite Negative (Negative) Urine Bilirubin Negative (Negative) Urine Urobilinogen <2.0 (<2.0) mg/dL Ur Leukocyte Esterase Negative (Negative) Acetone, Qual Negative (Negative) 07/25/18 Range/Units 13:40 WBC (3.8-10.6) k/uL RBC (4.30-5.90) m/uL Hgb (13.0-17.5) gm/dL Hct (39.0-53.0) % MCV (80.0-100.0) fL MCH (25.0-35.0) pg MCHC (31.0-37.0) g/dL RDW (11.5-15.5) % Plt Count (150-450) k/uL Neutrophils % % Lymphocytes % % Monocytes % % Eosinophils % % Basophils % % Neutrophils # (1.3-7.7) k/uL Lymphocytes # (1.0-4.8) k/uL Monocytes # (0-1.0) k/uL Eosinophils # (0-0.7) k/uL Basophils # (0-0.2) k/uL Sodium (137-145) mmol/L Potassium (3.5-5.1) mmol/L Chloride (98-107) mmol/L Carbon Dioxide (22-30) mmol/L Anion Gap mmol/L BUN (9-20) mg/dL Creatinine (0.66-1.25) mg/dL Est GFR (CKD-EPI)AfAm (>60 ml/min/1.73 sqM) Est GFR (CKD-EPI)NonAf (>60 ml/min/1.73 sqM) Glucose (74-99) mg/dL POC Glucose (mg/dL) 379 H (75-99) mg/dL POC Glu Customer Development Manager ID Nena Powell Calcium (8.4-10.2) mg/dL Total Bilirubin (0.2-1.3) mg/dL AST (17-59) U/L ALT (21-72) U/L Alkaline Phosphatase (38-126) U/L Total Protein (6.3-8.2) g/dL Albumin (3.5-5.0) g/dL Amylase (30-110) U/L Lipase (23-300) U/L Urine Color Urine Appearance (Clear) Urine pH (5.0-8.0) Ur Specific [place] (1.001-1.035) Urine Protein (Negative) Urine Glucose (UA) (Negative) Urine Ketones (Negative) Urine Blood (Negative) Urine Nitrite (Negative) Urine Bilirubin (Negative) Urine Urobilinogen (<2.0) mg/dL Ur Leukocyte Esterase (Negative) Acetone, Qual (Negative) - Radiology Data Radiology results: report reviewed CT states a chronic or possible cirrhosis. Hepatosplenomegaly. Diverticulosis. Improvement and diverticulitis. Additional findings noted with degenerative disease. Prostate shows some associated calcification. Disposition Clinical Impression: Blood glucose elevated, Hepatosplenomegaly Disposition: HOME SELF-CARE Condition: Good Instructions (If sedation given, give patient instructions): Diabetic Hyperglycemia (ED), Insulin Scale A ([facility]) Additional Instructions: Patient advised that close follow-up with primary care physician. Patient should return to the emergency department if any alarming signs or symptoms occur. Is patient prescribed a controlled substance at d/c from ED?: No Referrals: Chana Shoemaker MD [Primary Care Provider] - 1-2 days Time of Disposition: 14:17
[2018-07-25 11:44] LABS: Basophils % (A) 0 %; Eosinophils # (A) 0.2 k/uL (0-0.7); Eosinophils % (A) 3 %; HCT 52.9 % (39.0-53.0); HGB 17.7 gm/dL (13.0-17.5); Lymphocytes # (A) 1.8 k/uL (1.0-4.8); Lymphocytes % (A) 31 %; MCH 30.8 pg (25.0-35.0); MCHC 33.5 g/dL (31.0-37.0); MCV 91.7 fL (80.0-100.0); Mean Platelet Volume 8.1; Monocytes # (A) 0.2 k/uL (0-1.0); Monocytes % (A) 4 %; Neutrophils # (A) 3.5 k/uL (1.3-7.7); Neutrophils % (A) 61 %; Platelet Count 165 k/uL (150-450); RBC 5.76 m/uL (4.30-5.90); RDW 14.2 % (11.5-15.5); WBC 5.8 k/uL (3.8-10.6)
[2018-07-25 11:52] LABS: Appearance,Urine Clear (Clear); Bilirubin,Urine Negative (Negative); Blood,Urine Negative (Negative); Color,Urine Light Yellow; Glucose,Urine (UA) 4+ (Negative); Ketones,Urine 1+ (Negative); Leukocyte Esterase,Urine Negative (Negative); Nitrite,Urine Negative (Negative); Potassium 4.8 mmol/L (3.5-5.1); Protein,Urine Negative (Negative); Specific Gravity,Urine 1.028 (1.001-1.035); Urobilinogen,Urine <2.0 mg/dL (<2.0)
[2018-07-25 11:54] LABS: ALT 65 U/L (21-72); AST 44 U/L (17-59); Albumin 4.8 g/dL (3.5-5.0); Alkaline Phosphatase 190 U/L (38-126); Amylase 78 U/L (30-110); Anion Gap 14 mmol/L; Blood Urea Nitrogen 14 mg/dL (9-20); Calcium 9.9 mg/dL (8.4-10.2); Carbon Dioxide 26 mmol/L (22-30); Chloride 97 mmol/L (98-107); Lipase 80 U/L (23-300); Sodium 137 mmol/L (137-145); Total Bilirubin 1.4 mg/dL (0.2-1.3); Total Protein 7.9 g/dL (6.3-8.2)
[2018-07-25 11:58] LABS: Glucose 599 mg/dL (74-99)
[2018-07-25] MEDS ORDERED: INSULIN REGULAR 100 UNIT/ML VIAL IV ONE ×3 (12:07→15:09)
--- NOTE | 2018-07-25 13:51 | CT ---
EXAMINATION TYPE: CT abdomen pelvis w con DATE OF EXAM: 07/25/2018 COMPARISON: HISTORY: hyperglycemia CT DLP: 933.4 mGycm Automated exposure control for dose reduction was used. TECHNIQUE: Helical acquisition of images from the lung bases through the pelvis have been completed. CONTRAST: Performed without Oral Contrast and with IV Contrast, patient injected with 100 mL of Isovue 300. FINDINGS: There is a hiatal hernia present. Suspect bilateral inguinal hernias contain fat. LUNG BASES: No significant abnormality is appreciated. Emphysematous changes seen on previous exam ar e not seen definitively on today's exam possibly due to motion or plain of section. AORTA: No significant interval change is appreciated. LIVER/GB: Liver shows low attenuation as on prior exam, the liver is enlarged and shows intranodular contour. Gallbladder is unremarkable. PANCREAS: No significant abnormality is seen. SPLEEN: Remains enlarged. ADRENALS: No significant abnormality is seen. KIDNEYS: Cortical cyst is associated with the lower pole of the left kidney as on prior exam, there i s no hydronephrosis bilaterally REPRODUCTIVE ORGANS: Prostate shows associated calcification. BOWEL: Diverticular changes associated with the sigmoid colon. Changes of diverticulitis in left low er quadrant have resolved. FREE AIR: No Free Air visible. ASCITES: None visible. PELVIC ADENOPATHY: None visualized. RETROPERITONEAL ADENOPATHY: No Retroperitoneal Adenopathy visible. URINARY BLADDER: No significant abnormality is seen. OSSEOUS STRUCTURES: Multilevel degenerative disc disease, facet arthropathy, foraminal encroachment n oted. IMPRESSION: CORRELATE FOR POSSIBLE CIRRHOSIS, THERE IS HEPATOSPLENOMEGALY. DIVERTICULOSIS. IMPROVEMENT IN DIVERTI CULITIS. ADDITIONAL FINDINGS DESCRIBED ABOVE.
[2018-07-25 13:52] LABS: Glucose,Whole Blood 379 mg/dL (75-99)
[2018-07-25 15:12] VITALS: BP 137/86; PULSE 89; TEMP 98
== END 2018-07-25 15:32 | disposition home or self-care (01) ==
LOC: EC 10:22
DX: E11.65 Type 2 diabetes mellitus with hyperglycemia (principal); R16.2 Hepatomegaly with splenomegaly, not elsewhere classified; K57.92 Diverticulitis of intestine, part unspecified, without perforation or abscess without bleeding; R93.89 Abnormal findings on diagnostic imaging of other specified body structures; R63.4 Abnormal weight loss; M54.9 Dorsalgia, unspecified; J45.909 Unspecified asthma, uncomplicated; K21.9 Gastro-esophageal reflux disease without esophagitis; E78.5 Hyperlipidemia, unspecified; I10 Essential (primary) hypertension; M19.90 Unspecified osteoarthritis, unspecified site; E07.9 Disorder of thyroid, unspecified; F32.9 Major depressive disorder, single episode, unspecified; F41.9 Anxiety disorder, unspecified; Z87.891 Personal history of nicotine dependence; Z88.0 Allergy status to penicillin; Z79.4 Long term (current) use of insulin; Z79.51 Long term (current) use of inhaled steroids; Z79.82 Long term (current) use of aspirin; Z79.899 Other long term (current) drug therapy; Z85.820 Personal history of malignant melanoma of skin; Z98.890 Other specified postprocedural states; Z90.49 Acquired absence of other specified parts of digestive tract; Z95.818 Presence of other cardiac implants and grafts; Z80.0 Family history of malignant neoplasm of digestive organs
CPT/HCPCS: 36415; 74177; 80053; 81003; 82009; 82150; 83690; 85025; 96360; 99285

== ENCOUNTER → 2018-09-11 | Outpatient (CLI) | payer MEDICARE ==
[2018-09-11 10:36] LABS: HCT 47.4 % (39.0-53.0); HGB 15.5 gm/dL (13.0-17.5); MCH 29.6 pg (25.0-35.0); MCHC 32.8 g/dL (31.0-37.0); MCV 90.4 fL (80.0-100.0); Mean Platelet Volume 7.7; Platelet Count 199 k/uL (150-450); RBC 5.24 m/uL (4.30-5.90); RDW 13.7 % (11.5-15.5); WBC 8.6 k/uL (3.8-10.6)
[2018-09-11 16:20] LABS: Iron Saturation 47.39 (15.00-50.00)
[2018-09-11 16:29] LABS: Alpha Fetoprotein, Tumor Mkr 3.5 ng/mL (0.0-7.9)
[2018-09-11 16:54] LABS: Albumin 4.5 g/dL (3.80-4.90); Albumin/Globulin Ratio 2.14 (1.60-3.17); Anion Gap 11.7 mmol/L (4.00-12.00); Calcium 9.6 mg/dL (8.7-10.3); Carbon Dioxide 24.3 mmol/L (21.6-31.8); Globulin 2.1 g/dL (1.6-3.3); Potassium 4.4 mmol/L (3.5-5.5); Total Bilirubin 1.2 mg/dL (0.2-1.2); Total Protein 6.6 g/dL (6.2-8.2)
[2018-09-11 17:02] LABS: Hepatitis C IgG Antibody Non-Reactive (Non-Reactive)
== END | disposition home or self-care (01) ==
LOC: LABWHC1 09:21
PROVIDERS: ATTEND Internal Medicine Gastroenterology
DX: K74.60 Unspecified cirrhosis of liver (principal)
CPT/HCPCS: 36415; 80053; 82105; 82728; 83540; 83550; 85027; 86038; 86803; 87340

== ENCOUNTER → 2018-10-30 | Outpatient (CLI) | payer MEDICARE ==
--- NOTE | 2018-10-30 14:53 | CT ---
EXAMINATION TYPE: CT chest w con DATE OF EXAM: 10/30/2018 COMPARISON: NONE HISTORY: Nodule seen on prior CXR. CT DLP: 599 mGycm. Automated Exposure Control for Dose Reduction was Utilized. TECHNIQUE: CT scan of the thorax is performed following with IV Contrast, patient injected with 100 mL of Isovue 300. FINDINGS: LUNGS: There is a benign 2 mm granuloma in the right middle lobe on sagittal image 16 and axial image 34. Hyperdense subpleural 2 mm left upper lobe nodule is seen in image 17. The lungs are grossly jazmyne ar, there is no concerning parenchymal mass or nodule identified. There is no pleural effusion or p neumothorax seen. MEDIASTINUM: There are no greater than 1 cm hilar or mediastinal lymph nodes. No pericardial effusi on is seen. Severe three-vessel coronary artery calcifications are present. OTHER: There is a nodular contour the liver and diffuse hypoattenuation. There is a small hiatal bishop ia present. The spleen is prominent in size measuring up to 13.7 cm in longitudinal dimension approac jeff criteria for splenomegaly. Moderate multilevel degenerative changes of the thoracic spine are pr esent as well as vertebral body hemangioma. IMPRESSION: 1. No suspicious nodules to correspond to the patient's questionable pulmonary nodule on the prior est x-ray of 10/18/2018 therefore this finding likely represented hypertrophic changes of the first ri b. 2. Benign-appearing calcified granuloma measuring 2 mm in the right middle lobe. Hyperdense 2 mm nodu le in the subpleural left lung apex may also represent a developing granuloma and follow-up chest CT could be performed in 12 months to ensure stability. 3. Severe three-vessel coronary artery calcifications, a marker of coronary artery disease. 4. Hepatic steatosis and articular contour of the liver suggesting early cirrhosis. 5. Small hiatal hernia. 6. Prominent size of the spleen approaching criteria for splenomegaly.
== END | disposition home or self-care (01) ==
LOC: RADCTMAIN 12:54
PROVIDERS: ATTEND Internal Medicine
DX: J84.10 Pulmonary fibrosis, unspecified (principal); I25.10 Atherosclerotic heart disease of native coronary artery without angina pectoris; K44.9 Diaphragmatic hernia without obstruction or gangrene; Z88.0 Allergy status to penicillin
CPT/HCPCS: 82565; 84520; 71260; 36415; Q9967

== ENCOUNTER → 2018-11-22 | Outpatient (CLI) | payer MEDICARE ==
[2018-11-22 14:39] LABS: Basophils % (A) 0 %; Eosinophils # (A) 0.1 k/uL (0-0.7); Eosinophils % (A) 2 %; HCT 45.9 % (39.0-53.0); Lymphocytes # (A) 2.2 k/uL (1.0-4.8); Lymphocytes % (A) 35 %; MCH 28.4 pg (25.0-35.0); MCHC 32.6 g/dL (31.0-37.0); Mean Platelet Volume 8.4; Monocytes # (A) 0.3 k/uL (0-1.0); Monocytes % (A) 5 %; Neutrophils # (A) 3.5 k/uL (1.3-7.7); Neutrophils % (A) 57 %; Platelet Count 145 k/uL (150-450); RBC 5.27 m/uL (4.30-5.90); RDW 14.8 % (11.5-15.5); WBC 6.2 k/uL (3.8-10.6)
[2018-11-22 14:53] LABS: Appearance,Urine Clear (Clear); Bilirubin,Urine Negative (Negative); Blood,Urine Negative (Negative); Color,Urine Light Yellow; Glucose,Urine (UA) 4+ (Negative); Ketones,Urine 1+ (Negative); Leukocyte Esterase,Urine Negative (Negative); Nitrite,Urine Negative (Negative); PH, Urine 5.5 (5.0-8.0); Protein,Urine Negative (Negative); Specific Gravity,Urine 1.034 (1.001-1.035); Urobilinogen,Urine <2.0 mg/dL (<2.0)
[2018-11-22 17:13] LABS: Erythrocyte Sedimentation Rate 8 mm/hr (0-15)
[2018-11-22 18:54] LABS: Protein, Total 6.1 g/dL (6.2-8.2)
[2018-11-22 18:55] LABS: African American GFR (CKD) 86.8 (60.0-200.0); Albumin 4.2 g/dL (3.80-4.90); Albumin/Globulin Ratio 2.21 (1.60-3.17); Calcium 9.7 mg/dL (8.7-10.3); Globulin 1.9 g/dL (1.6-3.3); Potassium 4.4 mmol/L (3.5-5.5); Total Bilirubin 0.9 mg/dL (0.2-1.2); Total Protein 6.1 g/dL (6.2-8.2)
[2018-11-22 19:03] LABS: T4, Free (Free Thyroxine) 1.1 ng/dL (0.80-1.80)
[2018-11-22 19:13] LABS: Vitamin D 25 Hydroxy 11.8 ng/mL (30.0-100.0)
[2018-11-22 19:25] LABS: Hepatitis A Antibody IgM Non-Reactive (Non-Reactive); Hepatitis B Core IgM Non-Reactive (Non-Reactive)
[2018-11-22 20:53] LABS: Hemoglobin A1C 11.1 % (4.0-6.0)
[2018-11-23 12:47] LABS: Albumin 3.73 g/dL (3.80-4.90); Gamma Globulin 0.67 g/dL (0.70-1.50)
== END | disposition home or self-care (01) ==
LOC: LABWHC1 14:01
PROVIDERS: ATTEND Internal Medicine
DX: R63.4 Abnormal weight loss (principal)
CPT/HCPCS: 36415; 80053; 80074; 81003; 82306; 82533; 83036; 84153; 84165; 84439; 84443; 85025; 85652; 86038; 86141

== ENCOUNTER → 2019-05-15 | Outpatient (CLI) | payer OTHER ==
[2019-05-15 09:45] LABS: African American GFR (CKD) >90 (>60 ml/min/1.73 sqM); Blood Urea Nitrogen 14 mg/dL (9-20); Non-African American GFR(CKD) 90 (>60 ml/min/1.73 sqM)
--- NOTE | 2019-05-15 17:03 | CT ---
EXAMINATION TYPE: CT ChestAbdPelvis w con DATE OF EXAM: 05/15/2019 INDICATION: Abnormal wt. loss, history of melanoma COMPARISON: CT chest 10/30/2018 CT DLP: 1181 mGycm CONTRAST: Performed with Oral Contrast and with IV Contrast, patient injected with 100 mL of Isovue 300. TECHNIQUE: Axial images at 5 mm thick sections. Reconstructed images in the coronal plane. Delayed images through the kidneys. FINDINGS: CT CHEST: Portion of the thyroid visualized is normal. No suspicious lung nodules or focal infiltrates are present. No enlarged mediastinal or hilar adenopathy is evident. The ascending aorta diameter at the level of the main pulmonary artery is 3.4 cm. The main pulmonary artery diameter at the bifurcation is 2.2 cm. There is a small hiatal hernia present. CT ABDOMEN: Liver: Normal Spleen: Normal Pancreas: Normal Adrenal glands: The adrenal glands are normal. Gallbladder: Normal Kidneys: No masses are evident. No hydronephrosis is present. No cysts are present. Delayed images were obtained through the kidneys, which remain unremarkable. Aorta: Vascular calcification is within the aorta. Inferior vena cava: Normal. CT PELVIS: Loops of bowel within the abdomen and pelvis are normal. There are loops of bowel which are incom pletely distended or lack oral contrast limiting their evaluation. Small right inguinal hernia may be present. Few diverticuli are within the sigmoid colon. Appendix: Normal as visualized. Urinary bladder: Normal. Genitourinary structures: Osseous structures: No suspicious lytic or sclerotic lesions. IMPRESSIONS: 1. No suspicious changes suggest metastatic or recurrent melanoma within the [id number]-nq-alup. 2. Diverticulosis without acute diverticulitis. 3. Small right inguinal hernia.
== END | disposition home or self-care (01) ==
LOC: RADCTMAIN 08:07
DX: K57.30 Diverticulosis of large intestine without perforation or abscess without bleeding (principal); K40.90 Unilateral inguinal hernia, without obstruction or gangrene, not specified as recurrent
CPT/HCPCS: 82565; 84520; 71260; 74177; 36415; Q9967 ×2

== ENCOUNTER → 2019-06-06 | Outpatient (CLI) | payer MEDICARE ==
--- NOTE | 2019-06-06 14:23 | MR ---
EXAMINATION TYPE: MR liver wo/w con DATE OF EXAM: 06/06/2019 COMPARISON: CT chest, abdomen, and pelvis dated 05/15/2019 HISTORY: Cirrhosis and history of melanoma. CONTRAST: Standard multiplanar, multisequence MRI departmental protocol utilizing 7.5 mL intravenous Gadavist g adolinium contrast. FINDINGS: Motion artifact is present throughout the examination, limiting evaluation. No T1 hyperintense hepatic lesions are seen to suggest metastatic disease of the patient's known prabha noma. There is a cirrhotic morphology of liver with diffuse lobular contour and T2 hyperintense retic ulated pattern throughout. There is no perihepatic ascites identified. There are numerous wedge-shape d areas of subcapsular arterial enhancement particularly within the left hepatic lobe. On delayed imtiaz ging these equilibrate with background liver and do not demonstrate washout. There is no abnormal T2 signal associated and therefore these areas likely represent arterial portal shunts. No suspicious ar eas of washout are seen on delayed imaging within the liver. The main portal vein appears patent. The spleen is upper limits of normal size measuring 13.0 cm. A small hiatal hernia is seen. No esopha geal varices are identified nor gastrohepatic ligament varices. The gallbladder demonstrates a fold b ut is otherwise unremarkable. There are small bilateral renal sinus cysts. The pancreas is markedly s uboptimally evaluated given extensive patient motion particularly on T2-weighted images. No dilated b owel is seen. On delayed postcontrast images there are multiple too small to accurately characterize left renal lesions subtly seen on T2-weighted images, likely small cysts. No suspicious adenopathy in the abdomen. IMPRESSION: Exam is limited secondary to patient motion. 1. Hepatic cirrhosis with diffuse fibrosis. Numerous subcapsular wedge-shaped enhancing areas appear as multiple portal venous shunts with no findings suspicious for hepatocellular carcinoma at this juan e. Main portal vein appears patent. Spleen is upper limits of normal in size. No perihepatic ascites. 2. Small hiatal hernia.
== END | disposition home or self-care (01) ==
LOC: RADMRIMAIN 11:04
PROVIDERS: ATTEND Internal Medicine Gastroenterology
DX: K74.60 Unspecified cirrhosis of liver (principal); K74.0 Hepatic fibrosis; K44.9 Diaphragmatic hernia without obstruction or gangrene; R93.2 Abnormal findings on diagnostic imaging of liver and biliary tract
CPT/HCPCS: 74183; A9585

== ENCOUNTER → 2019-06-28 | Outpatient (CLI) | payer MEDICARE ==
[2019-06-28 11:14] LABS: HCT 43.9 % (39.0-53.0); HGB 14.3 gm/dL (13.0-17.5); MCH 29.7 pg (25.0-35.0); MCHC 32.6 g/dL (31.0-37.0); MCV 91.2 fL (80.0-100.0); Mean Platelet Volume 7.9; Platelet Count 155 k/uL (150-450); RBC 4.81 m/uL (4.30-5.90); RDW 13.3 % (11.5-15.5); WBC 5.8 k/uL (3.8-10.6)
[2019-06-28 16:41] LABS: African American GFR (CKD) 102.7 (60.0-200.0); Albumin/Globulin Ratio 2.35 (1.60-3.17); Anion Gap 8.9 mmol/L (4.00-12.00); BUN/Creat Ratio 22.5 Ratio (12.00-20.00); Carbon Dioxide 25.1 mmol/L (21.6-31.8); Globulin 1.7 g/dL (1.6-3.3); Non-African American GFR(CKD) 88.6 (60.0-200.0); Potassium 4.2 mmol/L (3.5-5.5); Total Protein 5.7 g/dL (6.2-8.2)
== END ==
LOC: LABWHC1 10:33
PROVIDERS: ATTEND Internal Medicine Gastroenterology
DX: K74.60 Unspecified cirrhosis of liver (principal); E11.65 Type 2 diabetes mellitus with hyperglycemia
CPT/HCPCS: 36415; 80053; 82105; 82533; 85027

== ENCOUNTER → 2019-07-01 | Outpatient (CLI) | payer MEDICARE | END | disposition home or self-care (01) | LOC: LABWHC1 09:08 | PROVIDERS: ATTEND Internal Medicine Endocrinology, Diabetes & Metabolism | DX: E11.65 Type 2 diabetes mellitus with hyperglycemia (principal) | CPT/HCPCS: 36415; 82533 ==

== ENCOUNTER 2019-07-04 09:36 | Day surgery (SDC) | payer MEDICARE ==
[2019-07-01 16:07] VITALS: BMI 25.6
[~2019-07-04 09:36] MED LIST changes: +LIDOCAINE 1% 20 ML VIAL (10MG/ML) FOR IV START INTRADERMA PRN
[2019-07-04 10:03] VITALS: TEMP 97.9
[2019-07-04] MEDS ORDERED: INSULIN ASPART (NovoLOG) 100 UNIT/ML VIAL SQ ONE (10:05)
[2019-07-04 10:06] LABS: Glucose,Whole Blood 301 mg/dL (75-99)
[2019-07-04] MEDS ORDERED: LIDOCAINE 1% INJ 10MG/ML (20 ML MDV) ONE (10:25)
[2019-07-04] MEDS ORDERED: PROPOFOL 10 MG/ML 20 ML VIAL IV ONE (10:25)
--- NOTE | 2019-07-04 10:53 | P.PCN ---
Date of Procedure: 07/04/19 Procedure(s) Performed: Brief history: Patient is a pleasant 74-year-old white male scheduled for an elective upper endoscopy as well as colonoscopy as a part of evaluation of has history of Leonard's esophagus and change in bowel habits. He lost 80 pounds in the last [address] of abdomen showed liver cirrhosis possibly from fatty liver disease. Procedure performed: Esophagogastroduodenoscopy with biopsy Colonoscopy Preoperative diagnosis: GERD/Leonard's esophagus Change in bowel habits and progressive weight loss of 80 pounds in the last 1 year duration Anesthesia: MAC Procedure: After informed consent was obtained from the patient was brought into the endoscopy unit and IV sedation was administered by anesthesia under continuous monitoring. Initially upper endoscopy was done. The Olympus GF 160 video endoscope was inserted inserted into the mouth and esophagus intubated without any difficulty and was gradually advanced into the stomach and duodenum and carefully examined. The bulb and second part of the duodenum appeared normal. The scope was then withdrawn into the stomach adequately insufflated with air and upon careful examination the antrum and body, had mild diffuse gastritis and biopsies were done from this area. The cardia and fundus appeared normal. The scope was then withdrawn into the esophagus. The GE junction was located at 36 cm to the incisors. There was a long segment of Leonard's esophagus extending from 24-36 cm from the incisors and multiple biopsies were done from the segment of Leonard's esophagus. The mucosa appeared normal.. Rest of the esophagus appeared normal. Patient tolerated the procedure well. At this time the patient continued to remain sedation. Initial digital rectal examination was normal. Olympus CF 160 video colonoscope was then inserted into the rectum and gradually advanced to the cecum without any difficulty. Careful examination was performed as the scope was gradually being withdrawn. The prep was excellent. The cecum, ascending colon, transverse colon, descending colon, sigmoid colon and rectum appeared normal. Retroflexion was performed in the rectum and no lesions were noted. Patient tolerated the procedure well. Impression: 1. Upper endoscopy revealed long segment Leonard's esophagus, small hiatal hernia and gastritis. No evidence of esophageal varices 2. Colonoscopy revealed scattered sigmoid diverticula cyst and grade 2 internal hemorrhoids Recommendations: Findings of this examination were discussed with the patient as well as this family. He was advised to follow with the biopsy results. If the biopsy does not show any evidence of dysplasia he can have a repeat upper endoscopy in 2 years
[2019-07-04 11:04] VITALS: RESP 16
[2019-07-04] MEDS ORDERED: ALBUTEROL NEBULIZED 2.5 MG/3 ML INHALATION STA (11:13)
[2019-07-04 11:40] VITALS: BP 150/83; PULSE 86
== END 2019-07-04 11:59 | disposition home or self-care (01) ==
LOC: ORWHC2ENDO 09:36
PROVIDERS: ATTEND Internal Medicine Gastroenterology
DX: K29.50 Unspecified chronic gastritis without bleeding (principal); K22.70 Barrett's esophagus without dysplasia; K21.9 Gastro-esophageal reflux disease without esophagitis; K31.89 Other diseases of stomach and duodenum; K44.9 Diaphragmatic hernia without obstruction or gangrene; K57.30 Diverticulosis of large intestine without perforation or abscess without bleeding; K64.1 Second degree hemorrhoids; I10 Essential (primary) hypertension; E78.5 Hyperlipidemia, unspecified; J45.909 Unspecified asthma, uncomplicated; F32.9 Major depressive disorder, single episode, unspecified; G20 Parkinson's disease; Z79.84 Long term (current) use of oral hypoglycemic drugs; Z79.890 Hormone replacement therapy; Z79.51 Long term (current) use of inhaled steroids; Z79.899 Other long term (current) drug therapy
CPT/HCPCS: 94640; 88305; 45378; 43239; J2001; J2704

== ENCOUNTER → 2020-07-29 | Outpatient (CLI) | payer MEDICARE ==
[2020-07-30 03:53] LABS: Hemoglobin A1C 5.8 % (4.0-6.0)
[2020-07-30 16:32] LABS: T4, Free (Free Thyroxine) 0.8 ng/dL (0.80-1.80)
== END | disposition home or self-care (01) ==
LOC: LABWHC1 15:57
PROVIDERS: ATTEND Psychiatry & Neurology Neurology
DX: E11.9 Type 2 diabetes mellitus without complications (principal); G72.9 Myopathy, unspecified
CPT/HCPCS: 36415; 82550; 83036; 84439; 84443

== ENCOUNTER → 2020-07-29 | Outpatient (CLI) | payer MEDICARE ==
--- NOTE | 2020-07-30 08:01 | MR ---
EXAMINATION TYPE: MR daisha/jimbo wo con DATE OF EXAM: 07/29/2020 COMPARISON: None HISTORY: Lower back and neck pain, headaches CONTRAST: Performed utilizing 0 mL intravenous Gadavist gadolinium contrast. TECHNIQUE: Multiplanar multiecho imaging on a 3.0 Justine magnet is performed through the cervical spin e. FINDINGS: The craniovertebral junction is normal. Vertebral body alignment is normal. C7-T1: No focal disc herniation or significant disc bulge is evident. No spinal canal stenosis or n eural foraminal stenosis is present. C6-7: No focal disc herniation or significant disc bulge is evident. No spinal canal stenosis or ronnie ral foraminal stenosis is present. C5-6: No focal disc herniation or significant disc bulge is evident. No spinal canal stenosis. There is some mild narrowing of the left foramen from uncovertebral joint. C4-5: There is a central focal bulge with mild intrathecal sac compression. No AP spinal canal stenos is present. No cord contact is evident. Neural foramen and mild narrowing from uncovertebral joint hy pertrophy. C3-4: No focal disc herniation or significant disc bulge is evident. No spinal canal stenosis or ronnie ral foraminal stenosis is present. C2-3: No focal disc herniation or significant disc bulge is evident. No spinal canal stenosis or ronnie ral foraminal stenosis is present. IMPRESSIONS: 1. Central focal bulge C4-5 with mild anterior thecal sac compression. 2. Uncovertebral joint hypertrophy contributing to bilateral foraminal narrowing C4-5 and left forami nal narrowing C5-6 EXAMINATION TYPE: MR daisha/jimbo wo con DATE OF EXAM: 07/29/2020 COMPARISON: None HISTORY: Lower back and neck pain, headaches CONTRAST: 0 mL intravenous Gadavist. TECHNIQUE: Multiplanar, multisequence images of the lumbar spine were acquired. FINDINGS: Cord terminates at the L1 level. L5-S1: There is loss of disc height is level. Minimal disc bulging is intrathecal sac contact. No AP spinal canal stenosis is present Moderate bilateral foraminal stenosis is present. Correlate with S 1 radicular symptoms. L4-L5: Mild asymmetric disc bulge is present central right paracentral regions with mild intrathecal sac compression. No AP spinal canal stenosis. Facet hypertrophy is present with ligamentum flavum la xity. This has posterior lateral thecal sac compression. Moderate right foraminal narrowing is prese nt. L3-L4: Mild residual disc bulges anterior thecal sac flattening facet hypertrophy has posterior late ral thecal sac compression Mild left foraminal narrowing is present.. L2-L3: Broad-based disc bulge is present with the intrathecal sac contact. No AP spinal canal stenosi s is present. Disc space narrowing is present. Neural foramen are patent.. L1-L2: No significant disc bulge or disc herniation. No spinal canal stenosis. No foraminal stenosi s. Facet hypertrophy on the right is mild posterior lateral thecal sac compression. T12-L1: No significant disc bulge or disc herniation. No spinal canal stenosis. No foraminal stenos is. Neural foramen are patent.. IMPRESSION: 1. Diffuse degenerative disc changes most notable at L2-3 L5-S1. 2. Disc bulge is present L5-S1, L4-5, L2-3 discussed above, no stenosis present. 3. Foraminal narrowing left L3-4 moderate right L4-5 bilaterally L5-S1.
== END ==
LOC: RADMRIMAIN 16:31
PROVIDERS: ATTEND Psychiatry & Neurology Neurology
DX: M50.221 Other cervical disc displacement at C4-C5 level (principal); M51.27 Other intervertebral disc displacement, lumbosacral region; M47.817 Spondylosis without myelopathy or radiculopathy, lumbosacral region
CPT/HCPCS: 72141; 72148

== ENCOUNTER 2020-10-12 10:50 | Day surgery (SDC) | payer MEDICARE ==
[2020-10-09 14:55] VITALS: BMI 33.4
[~2020-10-12 10:50] MED LIST changes: -LIDOCAINE 1% 20 ML VIAL (10MG/ML) FOR IV START INTRADERMA PRN
[2020-10-12 11:19] VITALS: TEMP 96.8
[2020-10-12 11:26] LABS: Glucose,Whole Blood 184 mg/dL (75-99)
[2020-10-12] MEDS ORDERED: LIDOCAINE 1% (10MG/ML) FOR IV START INTRADERMA ONE (11:28)
[2020-10-12] MEDS ORDERED: PROPOFOL 10 MG/ML 20 ML VIAL IV ONE (12:19)
--- NOTE | 2020-10-12 12:55 | P.PCN ---
Date of Procedure: 10/12/20 Description of Procedure: BRIEF HISTORY: Patient is a 75-year-old male presenting for outpatient esophagogastroduodenoscopy for evaluation of melena. He reports intermittent episodes of dark stool. He reports that his prior EGD was significant for Leonard's esophagus and hiatal hernia. PROCEDURE PERFORMED: Esophagogastroduodenoscopy with biopsy. PREOPERATIVE DIAGNOSIS: Melena, history of Leonard's esophagus. ESTIMATED BLOOD LOSS: Minimal. IV sedation per anesthesia. PROCEDURE: After informed consent was obtained, the patient was brought into the endoscopy unit. IV sedation was administered by Anesthesia under continuous monitoring. Initially the Olympus GIF-190 video endoscope was inserted into the mouth. Esophagus intubated without any difficulty. It was gradually advanced into the stomach and duodenum and carefully examined. The bulb and the second part of the duodenum appeared normal, With biopsies taken. The scope at this time was withdrawn to the stomach, adequately insufflated with air, and upon careful examination, mucosa of the antrum, body, cardia and the fundus appeared normal, With biopsies of antrum and body taken. The scope was then withdrawn into the esophagus. The GE junction was located at 37 cm from the incisors. 14 cm of salmon-colored mucosa consistent with history of Leonard's esophagus noted from 23 cm from the incisors to the GE junction at 37 cm from the incisors with a 3 cm hiatal hernia noted. The esophagus appeared normal. There were no erosions or ulcerations seen and the patient tolerated the procedure well. IMPRESSION: 1. No old blood, fresh blood or pathology to explain melena . 2. Long segment Leonard's esophagus. 3. Hiatal hernia. 4. Biopsies of the duodenum, antrum and body and Leonard's esophagus RECOMMENDATIONS: The findings of this examination were discussed with the patient and his family . Okay to resume diet. Okay to resume medications. Await pathology from biopsies. Continue to monitor hemoglobin and hematocrit and transfuse as needed. Continue other medical management
[2020-10-12 13:23] VITALS: BP 142/76; PULSE 77; RESP 20
== END 2020-10-12 13:20 | disposition home or self-care (01) ==
LOC: ORWHC2ENDO 10:50
PROVIDERS: ATTEND Internal Medicine
DX: K92.1 Melena (principal); K22.70 Barrett's esophagus without dysplasia; K44.9 Diaphragmatic hernia without obstruction or gangrene; E11.9 Type 2 diabetes mellitus without complications; J45.909 Unspecified asthma, uncomplicated; M19.90 Unspecified osteoarthritis, unspecified site; E07.9 Disorder of thyroid, unspecified; Z79.4 Long term (current) use of insulin; Z79.899 Other long term (current) drug therapy; Z88.0 Allergy status to penicillin; Z98.890 Other specified postprocedural states
CPT/HCPCS: 88305; 43239; J2704

== ENCOUNTER → 2020-11-18 | Outpatient (CLI) | payer MEDICARE ==
--- NOTE | 2020-11-18 09:44 | US ---
EXAMINATION TYPE: US liver DATE OF EXAM: 11/18/2020 COMPARISON: NONE CLINICAL HISTORY: K74.60 unspecified cirrhosis of liver. EXAM MEASUREMENTS: Liver Length: 18.8 cm Gallbladder Wall: 0.3 cm CBD: 0.3 cm Right Kidney: 10.7 x 5.4 x 4.9 cm Pancreas: Obscured by bowel gas Liver: heterogeneous, enlarged Gallbladder: probable non-shadowing stone Evidence for sonographic Lynn's sign: no CBD: wnl Right Kidney: No hydronephrosis or masses seen IMPRESSION: 1. Probable 0.4 cm nonshadowing calculus of the gallbladder versus polyp versus adherent sludge ball. 2. Nonspecific heterogeneity of the liver.
== END | disposition home or self-care (01) ==
LOC: RADUSWWP 08:55
PROVIDERS: ATTEND Internal Medicine Gastroenterology
DX: K74.60 Unspecified cirrhosis of liver (principal)
CPT/HCPCS: 76705

== ENCOUNTER → 2020-11-18 | Outpatient (CLI) | payer MEDICARE ==
[2020-11-18 17:53] LABS: Hemoglobin A1C 6.9 % (4.0-6.0)
[2020-11-18 19:39] LABS: African American GFR (CKD) 85.6 (60.0-200.0); Albumin 4.1 g/dL (3.80-4.90); Albumin/Globulin Ratio 1.86 (1.60-3.17); Anion Gap 10.2 mmol/L (4.00-12.00); Calcium 8.8 mg/dL (8.7-10.3); Carbon Dioxide 25.8 mmol/L (21.6-31.8); Chol/HDL Ratio 3.56; Globulin 2.2 g/dL (1.6-3.3); LDL Cholesterol,Calculated 86.8 mg/dL (0.0-131.0); Non-African American GFR(CKD) 73.8 (60.0-200.0); Potassium 4.1 mmol/L (3.5-5.5); Total Bilirubin 0.7 mg/dL (0.3-1.2); Total Protein 6.3 g/dL (6.2-8.2); VLDL Calculation 41.2 mg/dL (5.00-40.00)
[2020-11-18 20:08] LABS: Urine Creatinine 87.1 mg/dL
== END | disposition home or self-care (01) ==
LOC: LABWHC1 09:28
PROVIDERS: ATTEND Internal Medicine Endocrinology, Diabetes & Metabolism
DX: E11.65 Type 2 diabetes mellitus with hyperglycemia (principal)
CPT/HCPCS: 36415; 80053; 80061; 82043; 82570; 83036; 84443

== ENCOUNTER → 2021-03-30 | Outpatient (CLI) | payer MEDICARE ==
[2021-03-30 15:08] LABS: INR 1.01 (0.90-1.11)
[2021-03-30 15:13] LABS: HGB 13.6 g/dL (13.0-17.0); MCHC 30.2 g/dL (32.0-37.0); Mean Platelet Volume 11.3 fL (9.5-12.2); Platelet Count 190 X 10*3/uL (140-440); RBC 5.23 X 10*6/uL (4.40-5.60); RDW 14.6 % (11.5-14.5)
[2021-03-30 15:41] LABS: Albumin 4.2 g/dL (3.8-4.9); Anion Gap 12.2 mmol/L (4.00-12.00); BUN/Creat Ratio 15.4 Ratio (12.00-20.00); Blood Urea Nitrogen 15.4 mg/dL (9.0-27.0); Calcium 9.3 mg/dL (8.7-10.3); Carbon Dioxide 25.6 mmol/L (21.6-31.8); Non-African American GFR(CKD) 73.3 (60.0-200.0); Potassium 4.1 mmol/L (3.5-5.5); Total Protein 6.5 g/dL (6.2-8.2)
[2021-03-30 15:42] LABS: Albumin/Globulin Ratio 1.79 (1.60-3.17); Chol/HDL Ratio 4.26 Ratio; Globulin 2.3 g/dL (1.6-3.3); LDL Cholesterol,Calculated 108.6 mg/dL (0.0-131.0); Prostate Specific Antigen 4.8 ng/mL (0.00-6.50); T4, Free (Free Thyroxine) 0.79 ng/dL (0.800-1.800); Total Bilirubin 0.5 mg/dL (0.30-1.20); VLDL Calculation 41.4 mg/dL (5.00-40.00)
[2021-03-30 19:32] LABS: Microalbumin Creatinine Ratio <30 mg/g Creat (0-30)
== END | disposition home or self-care (01) ==
LOC: LABWHC1 09:15
PROVIDERS: ATTEND Internal Medicine Gastroenterology
DX: K74.60 Unspecified cirrhosis of liver (principal); E11.9 Type 2 diabetes mellitus without complications; I25.10 Atherosclerotic heart disease of native coronary artery without angina pectoris; D50.9 Iron deficiency anemia, unspecified; I10 Essential (primary) hypertension; E55.9 Vitamin D deficiency, unspecified
CPT/HCPCS: 36415; 80053; 80061; 82043; 82105; 82306; 82570; 83036; 84153; 84156; 84439; 84443; 85027; 85610

== ENCOUNTER 2021-04-02 06:45 | Day surgery (SDC) | payer MEDICARE ==
[2021-03-30 15:17] VITALS: BMI 33.4
[~2021-04-02 06:45] MED LIST changes: +LIDOCAINE 1% (10MG/ML) FOR IV START INTRADERMA PRN
[2021-04-02 07:11] VITALS: TEMP 96.6
[2021-04-02 07:28] LABS: Glucose,Whole Blood 160 mg/dL (75-99)
[2021-04-02] MEDS ORDERED: PROPOFOL 10 MG/ML 20 ML VIAL IV ONE (08:24)
--- NOTE | 2021-04-02 08:43 | P.PCN ---
Date of Procedure: 04/02/21 Procedure(s) Performed: BRIEF HISTORY: Patient is a 76-year-old pleasant white male scheduled for an elective colonoscopy as a part of evaluation of chronic diarrhea for the last several months duration PROCEDURE PERFORMED: Colonoscopy with biopsy PREOPERATIVE DIAGNOSIS: Chronic diarrhea of several months duration. IV sedation per Anesthesia. PROCEDURE: After informed consent was obtained, the patient, was brought into the endoscopy unit. IV sedation was administered by Anesthesia under continuous monitoring. Digital rectal examination was normal. Initially the Olympus CF-160 flexible video colonoscope was then inserted in the rectum, gradually advanced into the cecum without any difficulty. Careful examination was performed as the scope was gradually being withdrawn. Ileocecal valve and the appendiceal orifice were visualized and appeared normal. Prep was excellent. Mucosa of the cecum, ascending colon, appeared normal. The transverse colon there was a 4 mm polyp that was removed by cold biopsy. Rest of the transverse colon, descending colon, sigmoid colon, and rectum appeared normal. Random biopsies were done from ascending and descending colon to rule out microscopic/collagenous colitis. Retroflexion was performed in the rectum and no lesions were seen. The patient tolerated the procedure well. IMPRESSION: 4 mm transverse colon polyp status post removal by cold biopsy Rest of the colon appeared normal RECOMMENDATIONS: Findings of this examination were discussed with the patient as well as his family. He was advised to follow with the biopsy results. If the biopsy reveals adenoma he can have a repeat colonoscopy in 5 years..
[2021-04-02 08:50] LABS: Glucose,Whole Blood 143 mg/dL (75-99)
[2021-04-02 08:52] VITALS: RESP 16
[2021-04-02 09:06] VITALS: BP 138/74; PULSE 63
== END 2021-04-02 09:23 | disposition home or self-care (01) ==
LOC: ORWHC2ENDO 06:45
PROVIDERS: ATTEND Internal Medicine Gastroenterology
DX: D12.3 Benign neoplasm of transverse colon (principal); K52.9 Noninfective gastroenteritis and colitis, unspecified; K21.9 Gastro-esophageal reflux disease without esophagitis; I25.10 Atherosclerotic heart disease of native coronary artery without angina pectoris; I10 Essential (primary) hypertension; E78.5 Hyperlipidemia, unspecified; J45.909 Unspecified asthma, uncomplicated; M19.90 Unspecified osteoarthritis, unspecified site; G20 Parkinson's disease; H93.19 Tinnitus, unspecified ear; R53.1 Weakness; Z85.820 Personal history of malignant melanoma of skin; Z97.2 Presence of dental prosthetic device (complete) (partial); Z79.82 Long term (current) use of aspirin; Z79.4 Long term (current) use of insulin; Z79.899 Other long term (current) drug therapy; Z88.0 Allergy status to penicillin
CPT/HCPCS: 88305; 45380; J2704

== ENCOUNTER → 2021-04-15 | Outpatient (CLI) | payer MEDICARE ==
--- NOTE | 2021-04-15 10:35 | US ---
EXAMINATION TYPE: US liver DATE OF EXAM: 04/15/2021 COMPARISON: CLINICAL HISTORY: K74.60 Unspecified cirrhosis of liver. Liver cirrhosis EXAM MEASUREMENTS: Liver Length: 17.7 cm Gallbladder Wall: 0.1 cm CBD: 0.4 cm Right Kidney: 10.8 x 4.5 x 5.4 cm Pancreas: Tail and head obscured by bowel gas, portion of body seen is echogenic. Liver: Appears nodular and coarse. Difficult to penetrate. Gallbladder: Echogenic shadowing mobile lesion = 0.6 x 0.6 cm Evidence for sonographic Lynn's sign: neg CBD: Limited visualization due to bowel gas Right Kidney: No hydronephrosis or masses seen IMPRESSION: 1. Cholelithiasis. 2. Probable cirrhotic liver disease.
== END ==
LOC: RADUSWWP 09:42
PROVIDERS: ATTEND Internal Medicine Gastroenterology
DX: K80.20 Calculus of gallbladder without cholecystitis without obstruction (principal); K74.60 Unspecified cirrhosis of liver
CPT/HCPCS: 76705

== ENCOUNTER 2021-04-17 10:25 | Emergency (ER) | payer MEDICARE ==
--- NOTE | 2021-04-17 12:15 | XR ---
EXAMINATION TYPE: XR chest 2V DATE OF EXAM: 04/17/2021 COMPARISON: 04/29/2010, 06/16/2020 HISTORY: 76-year-old male with fever. TECHNIQPA: PA and lateral views FINDINGS: Heart normal size. Ectatic/tortuous thoracic aorta is redemonstrated. Mild hyperinflation. No consoli dation or pleural effusion. IMPRESSION: COPD. No definite acute process.
--- NOTE | 2021-04-17 12:28 | ED ---
URI HPI - General Chief Complaint: Upper Respiratory Infection Stated Complaint: poss Covid, SOB, Abd pain Time Seen by Provider: 04/17/21 11:32 Source: patient, RN notes reviewed Mode of arrival: ambulatory Limitations: no limitations - History of Present Illness Initial Comments: 76-year-old male presents emergency room complaining of upper respiratory tract symptoms and fatigue. He notes his is at home who is Covid-positive. He notes he can emergency room to get tested and he denied any other issues or complaints. He was otherwise well-appearing. He denied chest pain shortness of breath headache nausea vomiting diarrhea constipation fever fatigue chills. - Related Data Home Medications Medication Instructions Recorded Confirmed Albuterol Sulfate [Proventil Hfa] 2 puff INHALATION RT-Q6H PRN 11/03/14 04/02/21 atenoloL [Tenormin] 25 mg PO HS 11/03/14 03/30/21 Citalopram Hydrobromide [CeleXA] 40 mg PO BID 09/06/17 03/30/21 Omeprazole [PriLOSEC] 20 mg PO BID 09/06/17 03/30/21 Primidone [Mysoline] 50 mg PO BID 09/06/17 03/30/21 Atorvastatin [Lipitor] 40 mg PO DAILY 10/17/17 03/30/21 Insulin Aspart (For Pump) [NovoLOG 0.01 unit SQ-PUMP CONTINUOUS 10/09/20 03/30/21 (For Pump)] Fluticasone Propion/Salmeterol 1 inhalation PO BID 03/30/21 04/02/21 [Wixela 100-50 Inhub] Loperamide [Imodium] 2 mg PO QID 03/30/21 04/02/21 Allergies Allergy/AdvReac Type Severity Reaction Status Date / Time Penicillins Allergy Rash/Hives Verified 04/17/21 10:43 Review of Systems ROS Statement: Those systems with pertinent positive or pertinent negative responses have been documented in the HPI. ROS Other: All systems not noted in ROS Statement are negative. Past Medical History Past Medical History: Asthma, Cancer, Chest Pain / Angina, Diabetes Mellitus, GERD/Reflux, Hearing Disorder / Deafness, Hyperlipidemia, Hypertension, Osteoarthritis (OA), Thyroid Disorder Additional Past Medical History / Comment(s): HX MELANOMA LEFT EYELID, HX IRON IFUSIONS(Last 2018), DALY'S ESOPHAGUS, PARKINSONS, TINNITUS IN LEFT EAR, STATES DARK BLOODY STOOLS, FATTY LIVER, LIMITED ROM RIGHT WRIST FROM SURGERY, hx Hyperthyroid. History of Any Multi-Drug Resistant Organisms: None Reported Past Surgical History: Appendectomy, Heart Catheterization, Hernia Repair, Orthopedic Surgery Additional Past Surgical History / Comment(s): COLONOSCOPY, MELANOMA LEFT EYELID WITH SKIN GRAFT, RIGHT INGUINAL HERNIA & UMBILICAL HERNIA REPAIRS, CATARACT RIGHT EYE, HIATAL HERNIA, RIGHT WRIST FUSION, left knee surgery. Past Anesthesia/Blood Transfusion Reactions: No Reported Reaction Past Psychological History: Anxiety, Depression Smoking Status: Former smoker Past Alcohol Use History: Occasional Past Drug Use History: None Reported - Past Family History Sister(s) Family Medical History: Cancer Additional Family Medical History / Comment(s): Breast Cancer. Mother Family Medical History: Cancer, Hypertension Additional Family Medical History / Comment(s): COLON CANCER. Father Additional Family Medical History / Comment(s): HEART PROBLEMS. General Exam Limitations: no limitations General appearance: alert, in no apparent distress, obese Head exam: Present: atraumatic, normocephalic, normal inspection Eye exam: Present: normal appearance, PERRL, EOMI. Absent: scleral icterus, conjunctival injection, periorbital swelling ENT exam: Present: normal exam, mucous membranes moist Neck exam: Present: normal inspection Respiratory exam: Present: normal lung sounds bilaterally. Absent: respiratory distress, wheezes, rales, rhonchi, stridor Cardiovascular Exam: Present: regular rate, normal rhythm, normal heart sounds. Absent: systolic murmur, diastolic murmur, rubs, gallop, clicks Extremities exam: Present: normal inspection, full ROM, normal capillary refill. Absent: tenderness, pedal edema, joint swelling, calf tenderness Neurological exam: Present: alert, oriented X3 Psychiatric exam: Present: normal affect, normal mood Skin exam: Present: warm, dry, intact, normal color. Absent: rash Course Vital Signs 04/17/21 10:36 Temperature 98.1 F Pulse Rate 116 H Respiratory 18 Rate Blood Pressure 134/95 O2 Sat by Pulse 96 Oximetry Medical Decision Making - Medical Decision Making 6-year-old male with exposure to Covid displaying symptoms. Covid test, chest x-ray ordered. Covid test positive. Chest x-ray shows COPD with no definite acute process. Patient wishes to undergo monoclonal antibody infusion. Patient is very with discharge home after. Case discussed with Dr. Martinez, patient can discharge home. - Lab Data Lab Results 04/17/21 Range/Units 10:46 Coronavirus (PCR) Detected A (Not Detectd) - Radiology Data Radiology results: report reviewed, image reviewed Chest x-ray: COPD. No definite acute process. Disposition Clinical Impression: COVID Disposition: HOME SELF-CARE Condition: Stable Instructions (If sedation given, give patient instructions): Coronavirus D isease 2019 (COVID-19) Additional Instructions: Please return to the Emergency Department if symptoms worsen or any other concerns. Follow-up with primary care 1-2 days Quarantine per CDC guidelines. Is patient prescribed a controlled substance at d/c from ED?: No Referrals: Chana Shoemaker MD [Primary Care Provider] - 1-2 days Time of Disposition: 12:28
--- NOTE | 2021-04-17 13:18 | ED ---
Medical Decision Making - Medical Decision Making Upon reevaluation patient has changed his mind about monoclonal antibodies and wishes to go home at this time. Patient notes that he does not want to stay urinary longer in since he is fully vaccinated feels it is not necessary or needed to do the monoclonal antibodies. Patient was informed that we highly recommended this medication to prevent any worsening of symptoms. Case discussed with Dr. Martinez. - Lab Data Lab Results 04/17/21 Range/Units 10:46 Coronavirus (PCR) Detected A (Not Detectd) Disposition Clinical Impression: COVID Disposition: HOME SELF-CARE Condition: Stable Instructions (If sedation given, give patient instructions): Coronavirus Disease 2019 (COVID-19) Additional Instructions: Please return to the Emergency Department if symptoms worsen or any other concerns. Follow-up with primary care 1-2 days Quarantine per CDC guidelines. Is patient prescribed a controlled substance at d/c from ED?: No Referrals: Chana Shoemaker MD [Primary Care Provider] - 1-2 days
--- NOTE | 2021-04-17 13:23 | ED ---
Medical Decision Making - Medical Decision Making Patient states that talking the family therefore sitting him to get the monoclonal antibodies. Patient has change Herman for the third time. Case discussed with Dr. Martinez, patient will discharge home after. - Lab Data Lab Results 04/17/21 Range/Units 10:46 Coronavirus (PCR) Detected A (Not Detectd) Disposition Clinical Impression: COVID Disposition: HOME SELF-CARE Condition: Stable Instructions (If sedation given, give patient instructions): Coronavirus Disease 2019 (COVID-19) Additional Instructions: Please return to the Emergency Department if symptoms worsen or any other concerns. Follow-up with primary care 1-2 days Quarantine per CDC guidelines. Is patient prescribed a controlled substance at d/c from ED?: No Referrals: Chana Shoemaker MD [Primary Care Provider] - 1-2 days Time of Disposition: 13:23
[2021-04-17] MEDS ORDERED: BAMLANIVIMAB (EUA) 700 MG, ETESEVIMAB (EUA) 1,400 MG in SODIUM CHLORIDE 0.9% 50 ML IVPB ONE (13:45)
[2021-04-17] MEDS ORDERED: SODIUM CHLORIDE 0.9% 50 ML IVPB ONE (13:45)
[2021-04-17 14:38] VITALS: RESP 20
[2021-04-17 16:29] VITALS: BP 145/78; PULSE 87; TEMP 98.6
== END 2021-04-17 15:30 | disposition home or self-care (01) ==
LOC: EC 10:25
DX: U07.1 COVID-19 (principal); J45.909 Unspecified asthma, uncomplicated; E11.9 Type 2 diabetes mellitus without complications; K21.9 Gastro-esophageal reflux disease without esophagitis; E78.5 Hyperlipidemia, unspecified; I10 Essential (primary) hypertension; M19.90 Unspecified osteoarthritis, unspecified site; E07.9 Disorder of thyroid, unspecified; F41.9 Anxiety disorder, unspecified; F32.A Depression, unspecified; Z79.4 Long term (current) use of insulin; Z88.0 Allergy status to penicillin; Z90.49 Acquired absence of other specified parts of digestive tract; Z87.891 Personal history of nicotine dependence
CPT/HCPCS: 99283; M0245; 71046; 87635

== ENCOUNTER 2021-04-21 12:42 | Emergency (ER) | payer MEDICARE ==
[2021-04-21 12:57] VITALS: BP 183/128; PULSE 96; RESP 20; TEMP 98.1
[2021-04-21 14:36] LABS: Albumin 4.2 g/dL (3.5-5.0); Calcium 9.3 mg/dL (8.4-10.2); Magnesium 1.7 mg/dL (1.6-2.3); Potassium 4.9 mmol/L (3.5-5.1); Total Bilirubin 1.3 mg/dL (0.2-1.3); Total Protein 7.3 g/dL (6.3-8.2)
[2021-04-21 14:59] LABS: Anisocytosis Slight; Basophils % (A) 1 %; Eosinophils % (A) 0 %; HCT 50.4 % (39.0-53.0); HGB 16.3 gm/dL (13.0-17.5); Lymphocytes % (A) 15 %; MCH 26.6 pg (25.0-35.0); MCHC 32.3 g/dL (31.0-37.0); MCV 82.4 fL (80.0-100.0); Mean Platelet Volume 10.4; Monocytes # (A) 0.4 k/uL (0-1.0); Monocytes % (A) 6 %; Neutrophils % (A) 77 %; Platelet Count 203 k/uL (150-450); Poikilocytosis Slight; RBC 6.12 m/uL (4.30-5.90); RDW 16.1 % (11.5-15.5); WBC 6.5 k/uL (3.8-10.6)
[2021-04-21] MEDS ORDERED: SODIUM CHLORIDE 0.9% 1,000 ML IV STA ×2 (15:35)
--- NOTE | 2021-04-21 16:08 | ED ---
GI Bleed HPI - General Chief complaint: GI Bleed Stated complaint: COVID+ Time Seen by Provider: 04/21/21 15:25 Source: patient, RN notes reviewed Mode of arrival: ambulatory Limitations: no limitations - History of Present Illness Initial comments: 76-year-old male with a history of multiple medical issues who states he's been having blood per rectum for the past 4 days intermittently with some nonspecific generalized abdominal pain. He states the blood is dark red in nature he denies any lightheadedness or dizziness he does state he's been having some crampy abdominal pain with this. He also states she's been having this intermittently over the past several months. No fevers chills nausea vomiting sweats or other symptoms - Related Data Home Medications Medication Instructions Recorded Confirmed atenoloL [Tenormin] 25 mg PO DAILY 11/03/14 04/21/21 Omeprazole [PriLOSEC] 20 mg PO BID 09/06/17 04/21/21 Primidone [Mysoline] 50 mg PO BID 09/06/17 04/21/21 Loperamide [Imodium] 2 mg PO QID PRN 03/30/21 04/21/21 Albuterol Sulfate [Proair Hfa] 2 puff INHALATION RT-Q4H PRN 04/21/21 04/21/21 Capsaicin 0.025% Cream 1 applic TOPICAL BID PRN 04/21/21 04/21/21 DULoxetine HCL 40 mg PO DAILY 04/21/21 04/21/21 Fluticasone Propion/Salmeterol 1 puff INHALATION RT-BID 04/21/21 04/21/21 [Fluticasone-Salmeterol 250-50] Pregabalin [Lyrica] 150 mg PO BID 04/21/21 04/21/21 metFORMIN HCL [Glucophage] 1,000 mg PO BID 04/21/21 04/21/21 Allergies Allergy/AdvReac Type Severity Reaction Status Date / Time Penicillins Allergy Rash/Hives Verified 04/21/21 15:52 Review of Systems ROS Statement: Those systems with pertinent positive or pertinent negative responses have been documented in the HPI. ROS Other: All systems not noted in ROS Statement are negative. Past Medical History Past Medical History: Asthma, Cancer, Chest Pain / Angina, Diabetes Mellitus, GERD/Reflux, Hearing Disorder / Deafness, Hyperlipidemia, Hypertension, Osteoarthritis (OA), Thyroid Disorder Additional Past Medical History / Comment(s): HX MELANOMA LEFT EYELID, HX IRON IFUSIONS(Last 2018), DALY'S ESOPHAGUS, PARKINSONS, TINNITUS IN LEFT EAR, STAT ES DARK BLOODY STOOLS, FATTY LIVER, LIMITED ROM RIGHT WRIST FROM SURGERY, hx Hyperthyroid. History of Any Multi-Drug Resistant Organisms: None Reported Past Surgical History: Appendectomy, Heart Catheterization, Hernia Repair, Orthopedic Surgery Additional Past Surgical History / Comment(s): COLONOSCOPY, MELANOMA LEFT EYELID WITH SKIN GRAFT, RIGHT INGUINAL HERNIA & UMBILICAL HERNIA REPAIRS, CATARACT RIGHT EYE, HIATAL HERNIA, RIGHT WRIST FUSION, left knee surgery. Past Anesthesia/Blood Transfusion Reactions: No Reported Reaction Past Psychological History: Anxiety, Depression Smoking Status: Former smoker Past Alcohol Use History: Occasional Past Drug Use History: None Reported - Past Family History Sister(s) Family Medical History: Cancer Additional Family Medical History / Comment(s): Breast Cancer. Mother Family Medical History: Cancer, Hypertension Additional Family Medical History / Comment(s): COLON CANCER. Father Additional Family Medical History / Comment(s): HEART PROBLEMS. General Exam - General Exam Comments Initial Comments: This is a well-developed well-nourished awake alert oriented times 3 male Limitations: no limitations General appearance: alert, anxious Head exam: Present: atraumatic, normocephalic, normal inspection Eye exam: Present: normal appearance, PERRL, EOMI. Absent: scleral icterus, conjunctival injection, periorbital swelling ENT exam: Present: normal exam, mucous membranes moist Neck exam: Present: normal inspection. Absent: tenderness, meningismus, lymphadenopathy Respiratory exam: Present: normal lung sounds bilaterally. Absent: respiratory distress, wheezes, rales, rhonchi, stridor Cardiovascular Exam: Present: regular rate, normal rhythm, normal heart sounds. Absent: systolic murmur, diastolic murmur, rubs, gallop, clicks GI/Abdominal exam: Present: soft, tenderness, normal bowel sounds. Absent: distended, guarding, rebound, rigid, bruit, pulsatile mass Extremities exam: Present: normal inspection, full ROM, normal capillary refill. Absent: tenderness, pedal edema, joint swelling, calf tenderness Back exam: Present: normal inspection Neurological exam: Present: alert, oriented X3, CN II-XII intact Psychiatric exam: Present: normal affect, normal mood Skin exam: Present: warm, dry, intact, normal color. Absent: rash Course Vital Signs 04/21/21 12:55 Temperature 98.1 F Pulse Rate 96 Respiratory 20 Rate Blood Pressure 183/128 O2 Sat by Pulse 97 Oximetry Medical Decision Making - Medical Decision Making Reassessment patient finds he is awake alert oriented 3 no further symptoms at this time I did a long discussion with him regarding the findings including the normal. Hemoglobin he states this is where a chronic issue with the bleeding. To go home he will be discharged to follow-up with Dr. Shoemaker who is his family doctor at this time. Return parameters were discussed. He also will follow-up with Dr. Ghosh. At the patient's last assessment he did receive antibody treatment for COVID-19 at this time his vital signs are within reasonably normal levels for discharge. - Lab Data Result diagrams: 04/21/21 14:11 04/21/21 14:11 Lab Results 04/21/21 04/21/21 04/21/21 Range/Units 14:11 14:11 14:11 WBC 6.5 (3.8-10.6) k/uL RBC 6.12 H (4.30-5.90) m/uL Hgb 16.3 (13.0-17.5) gm/dL Hct 50.4 (39.0-53.0) % MCV 82.4 (80.0-100.0) fL MCH 26.6 (25.0-35.0) pg MCHC 32.3 (31.0-37.0) g/dL RDW 16.1 H (11.5-15.5) % Plt Count 203 (150-450) k/uL MPV 10.4 Neutrophils % 77 % Lymphocytes % 15 % Monocytes % 6 % Eosinophils % 0 % Basophils % 1 % Neutrophils # 5.0 (1.3-7.7) k/uL Lymphocytes # 1.0 (1.0-4.8) k/uL Monocytes # 0.4 (0-1.0) k/uL Eosinophils # 0.0 (0-0.7) k/uL Basophils # 0.0 (0-0.2) k/uL Poikilocytosis Slight Anisocytosis Slight APTT 24.0 (22.0-30.0) sec Sodium 139 (137-145) mmol/L Potassium 4.9 (3.5-5.1) mmol/L Chloride 106 (98-107) mmol/L Carbon Dioxide 15 L (22-30) mmol/L Anion Gap 18 mmol/L BUN 21 H (9-20) mg/dL Creatinine 0.96 (0.66-1.25) mg/dL Est GFR (CKD-EPI)AfAm 90 (>60 ml/min/1.73 sqM) Est GFR (CKD-EPI)NonAf 78 (>60 ml/min/1.73 sqM) Glucose 374 H (74-99) mg/dL Lactic Ac Sepsis Rflx Plasma Lactic Acid Tashi (0.7-2.0) mmol/L Calcium 9.3 (8.4-10.2) mg/dL Magnesium 1.7 (1.6-2.3) mg/dL Total Bilirubin 1.3 (0.2-1.3) mg/dL AST 51 (17-59) U/L ALT 32 (4-49) U/L Alkaline Phosphatase 125 (38-126) U/L Total Protein 7.3 (6.3-8.2) g/dL Albumin 4.2 (3.5-5.0) g/dL Blood Type Blood Type Recheck Bld Type Recheck Status Antibody Screen Spec Expiration Date 04/21/21 04/21/21 04/21/21 Range/Units 14:11 14:11 14:42 WBC (3.8-10.6) k/uL RBC (4.30-5.90) m/uL Hgb (13.0-17.5) gm/dL Hct (39.0-53.0) % MCV (80.0-100.0) fL MCH (25.0-35.0) pg MCHC (31.0-37.0) g/dL RDW (11.5-15.5) % Plt Count (150-450) k/uL MPV Neutrophils % % Lymphocytes % % Monocytes % % Eosinophils % % Basophils % % Neutrophils # (1.3-7.7) k/uL Lymphocytes # (1.0-4.8) k/uL Monocytes # (0-1.0) k/uL Eosinophils # (0-0.7) k/uL Basophils # (0-0.2) k/uL Poikilocytosis Anisocytosis APTT (22.0-30.0) sec Sodium (137-145) mmol/L Potassium (3.5-5.1) mmol/L Chloride (98-107) mmol/L Carbon Dioxide (22-30) mmol/L Anion Gap mmol/L BUN (9-20) mg/dL Creatinine (0.66-1.25) mg/dL Est GFR (CKD-EPI)AfAm (>60 ml/min/1.73 sqM) Est GFR (CKD-EPI)NonAf (>60 ml/min/1.73 sqM) Glucose (74-99) mg/dL Lactic Ac Sepsis Rflx Y Plasma Lactic Acid Tashi 2.2 H* (0.7-2.0) mmol/L Calcium (8.4-10.2) mg/dL Magnesium (1.6-2.3) mg/dL Total Bilirubin (0.2-1.3) mg/dL AST (17-59) U/L ALT (4-49) U/L Alkaline Phosphatase (38-126) U/L Total Protein (6.3-8.2) g/dL Albumin (3.5-5.0) g/dL Blood Type O Positive Blood Type Recheck No Previous Record Bld Type Recheck Status CABO Indicated Antibody Screen NEGATIVE Spec Expiration Date 04/24/2021 - 2310 - Radiology Data Radiology results: report reviewed (Imaging reviewed evidence of diverticulosis no diverticulitis also evidence of a slight right lower lobe infiltrate consistent with the patient's COBRA diagnosis.), image reviewed Disposition Clinical Impression: Blood per rectum, Diverticulosis, COVID-19 Disposition: HOME SELF-CARE Condition: Good Instructions (If sedation given, give patient instructions): Gastrointestinal Bleeding (ED), Coronavirus Disease 2019 (COVID-19) Is patient prescribed a controlled substance at d/c from ED?: No Referrals: Chana Shoemaker MD [Primary Care Provider] - 1-2 days
--- NOTE | 2021-04-21 16:37 | CT ---
EXAMINATION TYPE: CT abdomen pelvis w con DATE OF EXAM: COMPARISON: None HISTORY: COVID+. Abdominal pain, diverticulitis suspected, CT DLP: 1529.2 mGycm CONTRAST: CT scan of the abdomen and pelvis is performed without Oral Contrast and with IV Contrast, patient in jected with 100 mL of Isovue 300. FINDINGS: LUNG BASES-: Groundglass infiltrate right lower lobe compatible with Covid 19 pneumonia. LIVER/GB: No calcified gallstones. Hepatic steatosis noted. No space occupying hepatic lesion. Yehuda iary tree is of normal caliber. PANCREAS: No inflammation. No distinct mass. SPLEEN: No splenic enlargement. No lesion seen. ADRENALS: No nodule. No thickening. KIDNEYS/BLADDER: No hydronephrosis. No nephrolithiasis. No distinct renal mass. Urinary bladder g rossly unremarkable. BOWEL: Normal appendix. Normal bowel caliber. No inflammation. Diverticulosis without diverticuliti s. Fixed sliding-type hiatal hernia. GENITAL ORGANS: No gross abnormality. LYMPH NODES: No greater than 1cm abdominal or pelvic lymph nodes are appreciated. AORTA: No significant abnormality. OSSEOUS STRUCTURES: No significant abnormality is seen. OTHER: Bilateral fat-containing inguinal hernias. IMPRESSION: 1. Diverticulosis without diverticulitis. No acute inflammatory process seen at this time. 2. Right lower lobe infiltrate felt to reflect Covid 19 pneumonia.
== END 2021-04-21 18:29 | disposition home or self-care (01) ==
LOC: EC 12:42
DX: U07.1 COVID-19 (principal); K62.5 Hemorrhage of anus and rectum; K57.30 Diverticulosis of large intestine without perforation or abscess without bleeding; J45.909 Unspecified asthma, uncomplicated; E11.9 Type 2 diabetes mellitus without complications; K21.9 Gastro-esophageal reflux disease without esophagitis; E78.5 Hyperlipidemia, unspecified; I10 Essential (primary) hypertension; M19.90 Unspecified osteoarthritis, unspecified site; E07.9 Disorder of thyroid, unspecified; F41.9 Anxiety disorder, unspecified; F32.A Depression, unspecified; Z79.84 Long term (current) use of oral hypoglycemic drugs; Z88.0 Allergy status to penicillin; Z85.820 Personal history of malignant melanoma of skin; Z90.49 Acquired absence of other specified parts of digestive tract; Z87.891 Personal history of nicotine dependence
CPT/HCPCS: 99284; 96360; 36415; 86900; 86901; 80053; 83605; 83735; 85025; 85730; 86850; 74177; Q9967

== ENCOUNTER → 2021-11-08 | Outpatient (CLI) | payer MEDICARE ==
[2021-11-08 10:44] LABS: Basophils # (A) 0.04 X 10*3/uL (0.00-0.10); Basophils % (A) 0.7 %; Eosinophils # (A) 0.28 X 10*3/uL (0.04-0.35); Eosinophils % (A) 4.7 %; HCT 39.8 % (39.6-50.0); HGB 12.2 g/dL (13.0-17.0); Immature Grans, Automated 0.2 %; Lymphocytes # (A) 2.07 X 10*3/uL (0.90-5.00); Lymphocytes % (A) 34.8 %; MCH 25.3 pg (27.0-32.0); MCHC 30.7 g/dL (32.0-37.0); MCV 82.4 fL (80.0-97.0); Mean Platelet Volume 11.6 fL (9.5-12.2); Monocytes # (A) 0.43 X 10*3/uL (0.20-1.00); Monocytes % (A) 7.2 %; NRBC Per 100 WBC 0 /100 WBCS (0.0-0.0); Neutrophils # (A) 3.12 X 10*3/uL (1.80-7.70); Neutrophils % (A) 52.4 %; Platelet Count 183 X 10*3/uL (140-440); RBC 4.83 X 10*6/uL (4.40-5.60); RDW 15.5 % (11.5-14.5); WBC 5.95 X 10*3/uL (4.50-10.00)
[2021-11-08 11:10] LABS: BUN/Creat Ratio 17.84 Ratio (12.00-20.00); Chol/HDL Ratio 5.25 Ratio; Globulin 2.4 g/dL (1.6-3.3); Glucose 247 mg/dL (70-110); LDL Cholesterol,Calculated 88.3 mg/dL (0.0-131.0); Potassium 4.2 mmol/L (3.5-5.5); Sodium 138 mmol/L (135-145)
[2021-11-08 11:11] LABS: ALT 33 U/L (10-49); AST 30 U/L (14-35); African American GFR (CKD) 74.9 (60.0-200.0); Albumin 3.8 g/dL (3.8-4.9); Albumin/Globulin Ratio 1.61 (1.60-3.17); Alkaline Phosphatase 146 U/L (41-126); Blood Urea Nitrogen 19.8 mg/dL (9.0-27.0); Calcium 8.8 mg/dL (8.7-10.3); Carbon Dioxide 23.7 mmol/L (20.0-27.5); Chloride 103 mmol/L (96-109); Non-African American GFR(CKD) 64.6 (60.0-200.0); Total Protein 6.2 g/dL (6.2-8.2)
== END | disposition home or self-care (01) ==
LOC: LABWHC1 08:17
PROVIDERS: ATTEND Internal Medicine
DX: Z00.00 Encounter for general adult medical examination without abnormal findings (principal); I10 Essential (primary) hypertension; E11.9 Type 2 diabetes mellitus without complications; E78.5 Hyperlipidemia, unspecified; R53.83 Other fatigue; R53.1 Weakness
CPT/HCPCS: 36415; 80053; 80061; 82306; 83036; 84153; 84403; 84439; 84443; 85025

== ENCOUNTER → 2022-01-05 | Outpatient (CLI) | payer MEDICARE ==
--- NOTE | 2022-01-05 11:53 | CT ---
EXAMINATION TYPE: CT abdomen pelvis wo con DATE OF EXAM: 01/05/2022 COMPARISON: 04/21/2021 HISTORY: Lower abdominal pain X [address] DLP: 1577 mGycm Automated exposure control for dose reduction was used. TECHNIQUE: Helical acquisition of images was performed from the lung bases through the pelvis. FINDINGS: LUNG BASES: Subsegmental changes at the lung base on the right most typical of atelectasis. Suspect c oronary artery calcification. LIVER/GB: Tiny gallstone seen. There is reduced attenuation throughout the liver correlate for hepato cellular disease. Somewhat nodular contour to be associated with cirrhosis.. PANCREAS: No significant abnormality is seen. SPLEEN: Spleen measures 14 cm compatible with mild splenomegaly. ADRENALS: No significant abnormality is seen. KIDNEYS: No significant abnormality is seen. URINARY BLADDER: No significant abnormality is seen. ADENOPATHY: None visualized. OSSEOUS STRUCTURES: No significant abnormality is seen. BOWEL: Normal appendix. Normal bowel caliber. No inflammation. Diverticulosis without diverticulitis . Small hiatal hernia. Lack of contrast limits assessment for mucosal lesion. There is concern for mu cosal abnormality correlate with direct visualization. OTHER: A dense atherosclerotic change of the aorta approximately 60-70 % narrowing at the level of L3 -L4 similar to prior exam. Multilevel hypertrophic and degenerative changes of the spine. Prostate hypertrophy noted. Hypertroph ic arthropathy of the hip joints. IMPRESSION: 1. Correlate for hepatocellular disease. 2. Cholelithiasis. 3. Diverticulosis with no CT evidence of diverticulitis. 4. 60-70% aortic stenosis the level of L3-L4. Similar to prior CT scan correlate clinically.
== END | disposition home or self-care (01) ==
LOC: RADCTMAIN 09:49
PROVIDERS: ATTEND Family Medicine
DX: R10.30 Lower abdominal pain, unspecified (principal); K80.20 Calculus of gallbladder without cholecystitis without obstruction
CPT/HCPCS: 74176

== ENCOUNTER → 2022-03-22 | Outpatient (CLI) | payer MEDICARE ==
[2022-03-22 11:26] LABS: ALT 38 U/L (10-49); AST 53 U/L (14-35); African American GFR (CKD) 84.4 (60.0-200.0); Albumin 3.6 g/dL (3.8-4.9); Albumin/Globulin Ratio 1.44 (1.60-3.17); Alkaline Phosphatase 172 U/L (41-126); Blood Urea Nitrogen 16.6 mg/dL (9.0-27.0); Calcium 8.3 mg/dL (8.7-10.3); Carbon Dioxide 21.1 mmol/L (20.0-27.5); Chloride 110 mmol/L (96-109); Chol/HDL Ratio 4.33 Ratio; Globulin 2.5 g/dL (1.6-3.3); Glucose 177 mg/dL (70-110); LDL Cholesterol,Calculated 65.7 mg/dL (0.0-131.0); Non-African American GFR(CKD) 72.8 (60.0-200.0); Potassium 4.2 mmol/L (3.5-5.5); Sodium 141 mmol/L (135-145); Total Protein 6.1 g/dL (6.2-8.2)
== END | disposition home or self-care (01) ==
LOC: LABWHC1 03-21 08:17
PROVIDERS: ATTEND Internal Medicine Interventional Cardiology
DX: E78.2 Mixed hyperlipidemia (principal)
CPT/HCPCS: 36415; 80053; 80061

== ENCOUNTER 2022-03-23 05:40 | Day surgery (SDC) | payer MEDICARE ==
[~2022-03-23 05:40] MED LIST changes: +ALPRAZolam 0.25 MG TAB PO PRN; +ALPRAZolam 0.5 MG TAB PO PRN; +ASPIRIN 325 MG TAB PO STA; +ATORVASTATIN 80 MG TAB PO STA; +HEPARIN SODIUM,PORCINE 10,000 UNIT in SODIUM CHLORIDE 0.9% 1,000 ML IRRIGATION PRN; +HEPARIN SODIUM,PORCINE 2,500 UNIT in SODIUM CHLORIDE 0.9% 250 ML IRRIGATION PRN; -LACTATED RINGERS 1,000 ML IV SCH; -LIDOCAINE 1% (10MG/ML) FOR IV START INTRADERMA PRN; +NITROGLYCERIN SL TABS 0.4 MG TAB SUBLINGUAL PRN; +SODIUM CHLORIDE 0.9% 1,000 ML in EMPTY BAG 1 BAG IV SCH
[2022-03-23 06:32] LABS: Glucose,Whole Blood 137 mg/dL (70-110)
[2022-03-23 06:38] LABS: Anisocytosis Slight; Basophils # (A) 0.1 k/uL (0-0.2); Basophils % (A) 1 %; Eosinophils # (A) 0.4 k/uL (0-0.7); Eosinophils % (A) 6 %; HCT 38.5 % (39.0-53.0); HGB 11.8 gm/dL (13.0-17.5); Hypochromasia Marked; Lymphocytes # (A) 1.9 k/uL (1.0-4.8); Lymphocytes % (A) 28 %; MCH 24.9 pg (25.0-35.0); MCHC 30.7 g/dL (31.0-37.0); Monocytes # (A) 0.4 k/uL (0-1.0); Monocytes % (A) 6 %; Neutrophils # (A) 3.9 k/uL (1.3-7.7); Neutrophils % (A) 58 %; Platelet Count 153 k/uL (150-450); RBC 4.76 m/uL (4.30-5.90); RDW 16.6 % (11.5-15.5); WBC 6.7 k/uL (3.8-10.6)
[2022-03-23 06:45] VITALS: RESP 18; TEMP 99.1
[2022-03-23] MEDS ORDERED: ASPIRIN 81 MG ONE (06:47)
[2022-03-23] MEDS ORDERED: VERAPAMIL 2.5 MG/ML 2 ML AMP ONE (07:19)
[2022-03-23] MEDS ORDERED: fentaNYL (PF) 50 MCG/ML 2 ML AMP ONE (07:24)
[2022-03-23] MEDS ORDERED: HEPARIN SODIUM 1,000 UN/ML (10ML VL) ONE (07:24)
[2022-03-23] MEDS ORDERED: fentaNYL (PF) 50 MCG/ML 2 ML AMP IVP ONE ×2 (07:34→07:35)
[2022-03-23] MEDS ORDERED: LIDOCAINE 1% INJ 10MG/ML (30 ML VIAL-PF) SQ ONE (07:39)
[2022-03-23] MEDS ORDERED: VERAPAMIL SYRINGE (5 MG/10 ML) INTRAARTER ONE (07:41)
[2022-03-23] MEDS ORDERED: HEPARIN SODIUM 1,000 UN/ML (10ML VL) IVP ONE (07:45)
[2022-03-23] MEDS ORDERED: IOPAMIDOL-370 125ML BTL INJ ONE (07:52)
[2022-03-23] MEDS ORDERED: RX INFO: IV CONTRAST WAS GIVEN 1 EACH MISC MISCELLANE PRN (08:01)
[2022-03-23] MEDS ORDERED: LOPERAMIDE 2 MG CAP PO PRN (08:03)
[2022-03-23] MEDS ORDERED: ALBUTEROL NEBULIZED 2.5 MG/3 ML INHALATION PRN (08:03)
--- NOTE | 2022-03-23 08:12 | P.CARDCATH ---
Date of Procedure: 03/23/22 Description of Procedure: Cardiac Catheterization: The patient is a 77-year-old male with a known history of CAD who has been complaining of progressive dyspnea on exertion and episodes of chest discomfort, he underwent an MPI that showed evidence of stress-induced ischemia. Recommendations were made regarding cardiac catheterization, the risks and the complications were discussed with the patient who is in full understanding and agreement. Procedure Description: Patient was brought to cardiac cath lab radiology technologist in fasting semi-sedated state after receiving Fentanyl and Benadryl achieiving moderate conscious sedated state. Using Xylocaine Anesthesia and Seldinger technique, a 6-[place] sheath was introduced in the right radial artery . Subsequently, selective coronary angiography was performed using a 5-[place] 3.5 bend Caleb catheter. Multiple views of the coronary artery including hemiaxial views were obtained. The right Caleb catheter was used to cross the aortic valve and LVEDP was calculated. Following that, catheter and sheath were removed. Hemostasis was obtained with deployment of TR band . There was no immediate complication. Patient was returned to room in stable condition. Of note, the patient received a total of 5000 units of intravenous heparin as well as intra-arterial verapamil. Findings: Fluoroscopy: Severe calcification involving the left main, and the LAD were noted Left main: This is a large size vessel, bifurcating into LAD and left circumflex, the distal left main has 20% stenosis LAD: This is a heavily calcified vessel, tapers down in the distal third, giving rise of a moderately-sized diagonal branch in the proximal segment. The very proximal LAD there is a eccentric 90% stenosis, at the takeoff of the first septal [employer] officer there is a 60-70% stenosis. The proximal segment of the diagonal branch has a 99% stenosis in the low segment Left circumflex: This is a nondominant large size vessel, giving rise to 3 obtuse marginal branch. The first obtuse major branches to smallest and has a long area of stenosis from the takeoff of about 99%. The takeoff of the second obtuse marginal branch has a 70-80% stenosis the rest of the vessel is large in caliber and has no evidence of high-grade stenosis. RCA: This is a large dominant vessel, calcified, bifurcating into PDA and PLV. The right PDA reaches to the apical wall. The mid RCA has 20-30% plaque the PLV has a 60-70% stenosis, the PDA has no evidence of high-grade stenosis Left Ventriculogram: Not performed Hemodynamics: There was no gradient across the aortic valve , LVEDP was 16-18 mmHg Conclusion: 1. Calcified coronary arteries 2. Critical stenosis involving the proximal LAD, and the first diagonal branch 3. Severe stenosis in the first and second OM 4. Moderate to severe disease in the right PLV Recommendations: In view of the anatomy, the calcifications in the history of diabetes have recommended to obtain a surgical opinion regarding CABG and depending on the decision further recommendations will be made. The meantime we will continue aggressive coronary modifications and treatment.. The findings and the recommendations were discussed with the patient and the family and they were in full understanding and agreement. Duration of sedation is 14 minutes.
[2022-03-23] MEDS ORDERED: Insulin Aspart (For Pump) 100 UNIT/ML VIAL SQ-PUMP SCH (08:15)
[2022-03-23] MEDS ORDERED: SODIUM CHLORIDE 0.9% 1,000 ML IV SCH (08:15)
[2022-03-23] MEDS ORDERED: PRIMIDONE 50 MG TAB PO SCH (09:00)
[2022-03-23] MEDS ORDERED: ATORVASTATIN 40 MG TAB PO SCH (09:00)
[2022-03-23] MEDS ORDERED: NON FORMULARY DRUG (Omeprazole 20 MG Capsule.Dr) PO SCH (09:00)
[2022-03-23 12:03] LABS: INR 1.1 (<1.2); Partial Thromboplastin Time 29.4 sec (22.0-30.0); Prothrombin Time 11.9 sec (9.0-12.0)
[2022-03-23 12:13] LABS: ALT 31 U/L (4-49); AST 45 U/L (17-59); African American GFR (CKD) >90 (>60 ml/min/1.73 sqM); Albumin 3.4 g/dL (3.5-5.0); Alkaline Phosphatase 157 U/L (38-126); Anion Gap 9 mmol/L; Blood Urea Nitrogen 13 mg/dL (9-20); Calcium 7.8 mg/dL (8.4-10.2); Carbon Dioxide 21 mmol/L (22-30); Chloride 108 mmol/L (98-107); Glucose 305 mg/dL (74-99); Magnesium 1.9 mg/dL (1.6-2.3); Non-African American GFR(CKD) 84 (>60 ml/min/1.73 sqM); Potassium 4.4 mmol/L (3.5-5.1); Sodium 138 mmol/L (137-145); Total Bilirubin 0.6 mg/dL (0.2-1.3); Total Protein 5.7 g/dL (6.3-8.2)
[2022-03-23 13:56] VITALS: BP 162/72; PULSE 76
--- NOTE | 2022-03-23 14:01 | US ---
EXAMINATION TYPE: US carotid duplex BILAT DATE OF EXAM: 03/23/2022 COMPARISON: NONE CLINICAL HISTORY: Pre-Op Cardiac Surgery. Pre op cardiac surgery TECHNIQUE: Carotid duplex ultrasound examination. Indirect Doppler criteria was utilized. FINDINGS: EXAM MEASUREMENTS: RIGHT: Peak Systolic Velocity (PSV) cm/sec ----- Right CCA: 78.6 ----- Right ICA: 96.8 ----- Right ECA: 44.2 ICA/CCA ratio: 1.2 RIGHT: End Diastole cm/sec ----- Right CCA: 12.3 ----- Right ICA: 20.1 ----- Right ECA: 0.0 LEFT: Peak Systolic Velocity (PSV) cm/sec ----- Left CCA: 70.8 ----- Left ICA: 89.6 ----- Left ECA: 105 ICA/CCA ratio: 1.3 LEFT: End Diastole cm/sec ----- Left CCA: 11.0 ----- Left ICA: 19.5 ----- Left ECA: 9.1 VERTEBRALS (direction of flow): Right Vertebral: Antegrade Left Vertebral: Antegrade Rhythm: Normal CORRECTIONAL FACILITY NURSE NOTES: Mild plaque bilateral bifurcations. No evidence of significant stenosis Escobar scale images show mild to moderate peripheral plaque left greater than right carotid bulbs. IMPRESSION: No hemodynamically significant stenosis in either internal carotid artery. Criteria for Assigning % of Stenosis / Diameter reduction (Estimation based on the indirect measurements of the internal carotid artery velocities (ICA PSV). 1. Normal (no stenosis)=ICA PSV < 125 cm/s: ratio < 2.0: ICA EDV<40 cm/s. 2. Less than 50% stenosis=ICA PSV < 125 cm/s: ratio < 2.0: ICA EDV<40 cm/s. 3. 50 to 69% stenosis=ICA PSV of 125 to 230 cm/s: ration 2.0 ? 4.0: ICA EDV 40-100 cm/s. 4. Greater than 70% stenosis to near occlusion= ICA PSV > 230 cm/s: ratio > 4.0: ICA EDV > 100 cm/s. 5. Near occlusion= ICA PSV velocities may be low or undetectable: variable ratio and ICA EDV. 6. Total occlusion=unable to detect flow.
[2022-03-23 14:47] LABS: Appearance,Urine Clear (Clear); Bilirubin,Urine Negative (Negative); Blood,Urine Negative (Negative); Color,Urine Light Yellow; Glucose,Urine (UA) 4+ (Negative); Ketones,Urine Trace (Negative); Leukocyte Esterase,Urine Trace (Negative); Mucus,Urine Rare /hpf; Nitrite,Urine Negative (Negative); Protein,Urine Negative (Negative); RBC,Urine 1 /hpf (0-5); Specific Gravity,Urine 1.023 (1.001-1.035); Urobilinogen,Urine <2.0 mg/dL (<2.0); WBC,Urine 2 /hpf (0-5)
--- NOTE | 2022-03-23 15:27 | P.GSCN ---
History of Present Illness Consult date: 03/23/22 Reason for Consult: Multivessel coronary artery disease with calcified coronary arteries and a critical stenosis involving the proximal LAD and the first diagonal branch. Severe stenosis in the first and second obtuse marginal coronary artery, moderate to severe disease in the right PLV. Requesting physician: Jesus Campoverde History of present illness: This is a 77-year-old gentleman who follows on an outpatient basis with Dr. Chana Shoemaker for his primary care and with Dr. Campoverde for his cardiology care. He also sees Dr. Sonal Ghosh for history of cirrhosis of the liver. He has a past medical history significant for hypertension, hyperlipidemia, insulin-dependent diabetes mellitus with an insulin pump, peripheral vascular disease, cirrhosis of the liver, history of rectal bleeding, iron deficiency anemia, melanoma to his left face near his left eye, Daly's esophagus, asthma, depression, remote history of nicotine dependence in which he quit smoking 30 years ago, and occasional alcohol use with drinking 2 beers per week. Recently, the patient has been feeling tired with no energy, complaining of episodes of shortness of breath with activity and occasional chest pain. He reports these symptoms have been present over the last 2-3 month period. He denies any recent nausea, vomiting, fever, chills, orthopnea, palpitations, syncope, near syncope, palpitations, or strokelike symptoms. The patient states that he has daily rectal bleeding and frequent episodes of diarrhea in which he is following with Dr. Ghosh. Due to his recent symptoms he underwent a transthoracic 2-D echocardiogram which demonstrated a normal LV size with normal function, an ejection fraction of 55-60%, with moderate left ventricular hypertrophy, mild mitral valve regurgitation, mild tricuspid valve regurgitation and a mildly increased pulmonary artery systolic pressure of 37 mmHg. For further evaluation the patient underwent a nuclear Lexiscan Cardiolite stress test on 02/16/2022 which demonstrated probably abnormal myocardial perfusion imaging with partial reversible inferior apical lateral wall and normal gated SPECT images, suggestive of stress-induced ischemia although the possibility of soft tissue attenuation could not be excluded. 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 The heart catheterization results were reviewed with the patient by Dr. Campoverde and due to the findings on the heart catheterization a consult was placed to Dr. Tawanda Dorman for further evaluation and treatment recommendations including myocardial revascularization surgery. Review of Systems A 14 point review of systems was completed and was negative except as mentioned in the HPI. Past Medical History Past Medical History: Asthma, Cancer, Chest Pain / Angina, Diabetes Mellitus, GERD/Reflux, Hearing Disorder / Deafness, Hyperlipidemia, Hypertension, Osteoarthritis (OA), Thyroid Disorder Additional Past Medical History / Comment(s): HX MELANOMA LEFT EYELID, HX IRON IFUSIONS(Last 2017) for anemia, DALY'S ESOPHAGUS, PARKINSON-has tremors, TINNITUS IN LEFT EAR, frequent DARK BLOODY STOOLS, cirrhosis of the liver followed by Dr. Ave Ghosh, LIMITED ROM RIGHT WRIST FROM SURGERY, hx Hyperthyroid., very weak legs, recent stress test & echo. The patient reports he had about 80 pound weight loss around a year ago for unknown reasons, although has gained most of the weight back. History of Any Multi-Drug Resistant Organisms: None Reported Past Surgical History: Appendectomy, Heart Catheterization, Hernia Repair, Orthopedic Surgery Additional Past Surgical History / Comment(s): COLONOSCOPY, MELANOMA LEFT EYELID WITH SKIN GRAFT, RIGHT INGUINAL HERNIA & UMBILICAL HERNIA REPAIRS, moe cataracts removed, HIATAL HERNIA, RIGHT WRIST FUSION, left knee scope for torn meniscus. Past Anesthesia/Blood Transfusion Reactions: No Reported Reaction Past Psychological History: Depression Smoking Status: Former smoker (Quit smoking 30 years ago) Past Alcohol Use History: Occasional (Drinks 2 beers per week) Past Drug Use History: None Reported - Past Family History Sister(s) Family Medical History: Cancer Additional Family Medical History / Comment(s): Breast Cancer. Mother Family Medical History: Cancer, Hypertension Additional Family Medical History / Comment(s): Throat cancer, COLON CANCER. Father Family Medical History: Coronary Artery Disease (CAD), Diabetes Mellitus, Myocardial Infarction (MO) Additional Family Medical History / Comment(s): HEART PROBLEMS. History of coronary artery bypass grafting surgery Medications and Allergies Home Medications Medication Instructions Recorded Confirmed Type atenoloL [Tenormin] 25 mg PO HS 11/03/14 03/23/22 History Omeprazole [PriLOSEC] 20 mg PO BID 09/06/17 03/23/22 History Primidone [Mysoline] 250 mg PO BID 09/06/17 03/23/22 History Loperamide [Imodium] 2 mg PO QID PRN 03/30/21 03/23/22 History Albuterol Sulfate [Proair Hfa] 2 puff INHALATION QID PRN 04/21/21 03/22/22 History DULoxetine HCL 60 mg PO DAILY 04/21/21 03/22/22 History Fluticasone Propion/Salmeterol 1 puff INHALATION HS 04/21/21 03/23/22 History [Fluticasone-Salmeterol 250-50] Pregabalin [Lyrica] 150 mg PO BID 04/21/21 03/22/22 History Aspirin 81 mg PO HS 03/22/22 03/23/22 History Insulin Aspart (For Pump) [NovoLOG 0.01 unit SQ-PUMP CONTINUOUS 03/22/22 03/22/22 History (For Pump)] Isosorbide Mononitrate [Isosorbide 30 mg PO HS 03/22/22 03/23/22 History Mononitrate ER] Atorvastatin [Lipitor] 40 mg PO DAILY #90 tab 03/23/22 Rx Nitroglycerin Sl Tabs [Nitrostat] 0.4 mg SUBLINGUAL Q5M PRN #25 tab 03/23/22 Rx Allergies Allergy/AdvReac Type Severity Reaction Status Date / Time Penicillins Allergy Rash/Hives Verified 03/23/22 06:21 Surgical - Exam Vital Signs Temp Pulse Resp BP Pulse Ox 99.1 F 81 18 126/57 96 03/23/22 06:43 03/23/22 06:43 03/23/22 06:43 03/23/22 06:43 03/23/22 06:43 - General well developed, well nourished, no distress, no pain, obese - Eyes PERRL, normal ocular movement, no pale, no icteric, no deviation - ENT normal pinna, normal nares, normal mucosa, no congestion, decreased hearing, poor long term, dentures (Upper plate) - Neck Neck is supple, no JVD. no masses, no bruits, trachea midline, no venous distension - Respiratory Lung sounds are essentially clear throughout, few scattered crackles to bilateral bases. Respirations are symmetrical and nonlabored. No wheezes or rhonchi present. - Cardiovascular Regular rhythm and rate. S1 and S2 present, negative for S3, gallop or murmur. Normal sinus rhythm on the bedside monitor with a heart rate of 73 bpm. No peripheral edema. Peripheral pulses palpable. - Abdomen Abdomen is soft, nontender and nondistended. Active bowel sounds present in all 4 abdominal quadrants. No guarding or rigidity. No organomegaly appreciated. - Genitourinary Deferred - Rectum Deferred - Integumentary Skin is warm and dry, no clubbing or cyanosis is present. no rash, no growths, no abnormal pigmentation - Neurologic No focal deficit. normal coordination, normal sensation - Musculoskeletal normal gait, normal posture - Psychiatric oriented to time, oriented to person, oriented to place, speech is normal, memory intact Results - Labs 03/23/22 06:25 03/23/22 11:16 Abnormal Lab Results - Last 24 Hours (Table) 03/23/22 03/23/22 03/23/22 Range/Units 06:25 06:28 11:16 Hgb 11.8 L (13.0-17.5) gm/dL Hct 38.5 L (39.0-53.0) % MCH 24.9 L (25.0-35.0) pg MCHC 30.7 L (31.0-37.0) g/dL RDW 16.6 H (11.5-15.5) % Chloride 108 H (98-107) mmol/L Carbon Dioxide 21 L (22-30) mmol/L Glucose 305 H (74-99) mg/dL POC Glucose (mg/dL) 137 H (70-110) mg/dL Calcium 7.8 L (8.4-10.2) mg/dL Alkaline Phosphatase 157 H (38-126) U/L Total Protein 5.7 L (6.3-8.2) g/dL Albumin 3.4 L (3.5-5.0) g/dL Diabetes panel 03/23/22 Range/Units 11:16 Sodium 138 (137-145) mmol/L Potassium 4.4 (3.5-5.1) mmol/L Chloride 108 H (98-107) mmol/L Carbon Dioxide 21 L (22-30) mmol/L BUN 13 (9-20) mg/dL Creatinine 0.87 (0.66-1.25) mg/dL Glucose 305 H (74-99) mg/dL Calcium 7.8 L (8.4-10.2) mg/dL AST 45 (17-59) U/L ALT 31 (4-49) U/L Alkaline Phosphatase 157 H (38-126) U/L Total Protein 5.7 L (6.3-8.2) g/dL Albumin 3.4 L (3.5-5.0) g/dL Thyroid panel 03/23/22 Range/Units 11:16 TSH 3.410 (0.465-4.680) mIU/L Calcium panel 03/23/22 Range/Units 11:16 Calcium 7.8 L (8.4-10.2) mg/dL Albumin 3.4 L (3.5-5.0) g/dL Pituitary panel 03/23/22 Range/Units 11:16 Sodium 138 (137-145) mmol/L Potassium 4.4 (3.5-5.1) mmol/L Chloride 108 H (98-107) mmol/L Carbon Dioxide 21 L (22-30) mmol/L BUN 13 (9-20) mg/dL Creatinine 0.87 (0.66-1.25) mg/dL Glucose 305 H (74-99) mg/dL Calcium 7.8 L (8.4-10.2) mg/dL TSH 3.410 (0.465-4.680) mIU/L Adrenal panel 03/23/22 Range/Units 11:16 Sodium 138 (137-145) mmol/L Potassium 4.4 (3.5-5.1) mmol/L Chloride 108 H (98-107) mmol/L Carbon Dioxide 21 L (22-30) mmol/L BUN 13 (9-20) mg/dL Creatinine 0.87 (0.66-1.25) mg/dL Glucose 305 H (74-99) mg/dL Calcium 7.8 L (8.4-10.2) mg/dL Total Bilirubin 0.6 (0.2-1.3) mg/dL AST 45 (17-59) U/L ALT 31 (4-49) U/L Alkaline Phosphatase 157 H (38-126) U/L Total Protein 5.7 L (6.3-8.2) g/dL Albumin 3.4 L (3.5-5.0) g/dL - Imaging Additional studies: Carotid duplex showed no hemodynamically significant stenosis in either internal carotid artery. Bedside FEV1 showed predicted value of 62.2% with a base volume of 1.80 L Assessment and Plan Assessment: 1. Multivessel coronary artery disease with calcified coronary arteries and a critical stenosis involving the proximal LAD and first diagonal branch, severe stenosis in the first and second obtuse marginal coronary arteries, moderate to severe disease in the right PLV 2. Hypertension 3. Hyperlipidemia 4. Type 2 insulin-dependent diabetes mellitus, insulin pump 5. Cirrhosis of the liver 6. COPD with a preoperative FEV1 62.2% of predicted value with a base volume of 1.80 L 7. History of asthma 8. History of iron deficiency anemia, current hemoglobin 11.8 9. Peripheral vascular disease 10. History of rectal bleeding 11. History of melanoma to his left face, near his left eyelid 12. History of depression 13. Remote history of nicotine dependence, quit smoking 30 years ago 14. Occasional alcohol use with drinking 2 beers per week 15. Family history of coronary artery disease 16. History of tremors 17. History of unintentional 80 pound weight loss over one year period in 2019 18. History of Daly's esophagus Plan: The patient was seen and examined at his bedside in the extended stay unit by Dr. Tawanda Dorman. His chart and diagnostics were reviewed. Dr. Dorman discussed the findings on the cardiac catheterization films with the patient and his family present at his bedside. Treatment options were discussed with the patient including myocardial revascularization surgery. The usual course of myocardial revascularization surgery was discussed with the patient, along with risks and benefits by Dr. Dorman, the patient and family's questions were answered. Preoperative teaching and preoperative workup has been initiated. A 5 m walk test was completed with the patient with time 1: 2.65 seconds, time 2: 3.02 seconds, time 3: 2.53 seconds. The patient tolerated the 5 m walk test well and denies any complaints of shortness of breath or pain at this time. An STS risk or has been calculated in discussed with the patient. Continue to optimize medical management with aspirin, statin and beta yolette. The patient will be scheduled to see Dr. Ave Ghosh next week to evaluate his cirrhosis, for clearance for surgery. He will also be seen by Dr. Shoemaker in the office next week on 03/30/2022 at 3:45 PM for pulmonary clearance. The patient has been scheduled for off-pump myocardial revascularization surgery with left internal mammary artery, left radial artery endoscopic harvest, endoscopic vein harvest, exclusion of left atrial appendage and intraoperative transesophageal echocardiogram for 04/11/2022 to be performed by Dr. Tawanda Dorman. Thank you Dr. Campoverde for this consult and we look for to working with you in the care of this patient. I have personally seen and examined the patient, performed the documentation and the assessment and plan as written. 30 minutes spent on the visit . Yemi ALSTON
[2022-03-23 18:59] LABS: Chol/HDL Ratio 4.07 Ratio; LDL Cholesterol,Calculated 84.6 mg/dL (0.0-131.0)
[2022-03-23 19:37] LABS: Hepatitis A Antibody IgM Nonreactive (Nonreactive); Hepatitis B Core IgM Nonreactive (Nonreactive); Hepatitis B Surface Antigen Nonreactive (Nonreactive); Hepatitis C IgG Antibody Nonreactive (Nonreactive)
[2022-03-23] MEDS ORDERED: ISOSORBIDE MONONITRATE ER 30 MG TAB.ER.24H PO SCH (21:00)
[2022-03-23] MEDS ORDERED: ASPIRIN 81 MG PO SCH (21:00)
[2022-03-23] MEDS ORDERED: atenoloL 25 MG TAB PO SCH (21:00)
[2022-03-23] MEDS ORDERED: PREGABALIN 75 MG CAP PO SCH (21:00)
[2022-03-24] MEDS ORDERED: DULoxetine HCL 60 MG CAPSULE.DR PO SCH (09:00)
--- NOTE | 2022-03-25 08:29 | US ---
EXAMINATION TYPE: US vein mapping BILAT DATE OF EXAM: 03/23/2022 1:31 PM COMPARISON: NONE CLINICAL HISTORY: PreOp Cardiac Surgery. pre op cardiac surgery SIDE PERFORMED: bilateral TECHNIQUE: Lower extremity saphenous vein is examined and measured utilizing real time linear array sonography. DUPLEX FINDINGS: Greater Saphenous: Color flow seen Measurements in mm: Right Greater Saphenous: Groin: 6.2 x 5.1 mm High Thigh: 5.6 x 4.2 mm Mid Thigh: 3.6 x 3.1 mm Above Knee: 3.8 x 3.5 mm Knee: 3.6 x 3.5 mm Below Knee: 3.2 x 3.1 mm Mid Calf: 2.8 x 2.3 mm At Ankle: 3.0 x 2.6 mm Left Greater Saphenous: Groin: 7.0 x 6.6 mm High Thigh: 4.9 x 4.4 mm Mid Thigh: 4.8 x 3.8 mm Above Knee: 4.9 x 4.5 mm Knee: 4.2 x 3.5 mm Below Knee: 4.5 x 3.3 mm Mid Calf: 2.0 x 1.7 mm At Ankle: 2.0 x 1.6 mm IMPRESSION: 1. Bilateral GSV measurements listed above. 2. Performing surgeon to determine viability as conduit.
--- NOTE | 2022-03-25 08:30 | US ---
EXAMINATION TYPE: Pre-Operative Non-Invasive Evaluation of the hand for Potential Radial Artery Alfonso caruso, Measurements only DATE OF EXAM: 03/23/2022 1:31 PM CLINICAL HISTORY: Pre-Op Cardiac Surgery. Pre op cardiac surgery SIDE PERFORMED: left TECHNIQUE: Radial artery is measured utilizing real time linear array sonography. Duplex Findings: Radial Artery: Color flow seen Measurements in mm, transverse view: Left Radial: Proximal: 3.6 x 3.2 mm Mid: 3.2 x 2.7 mm Distal: 3.2 x 2.6 mm IMPRESSION: 1. Left radial artery measurements listed above. 2. Performing surgeon to determine viability as conduit.
--- NOTE | 2022-03-25 09:10 | US ---
EXAMINATION TYPE: US arterial LE single level DATE OF EXAM: 03/23/2022 12:59 PM CLINICAL HISTORY: Ankle Brachial Index (JANESSA) . open heart JANESSA only. Preopen cardiac surgery. Ankle-Brachial Indices: Right: NA - Could not occlude at 220mmHg Left: NA - Could not occlude at 220mmHg Toe Brachial Indices: Right: 0.8 Left: 0.8 Monophasic to biphasic waveforms. IMPRESSION: Normal TBI values. Nondiagnostic JANESSA study.
== END 2022-03-23 14:27 | disposition home or self-care (01) ==
LOC: CATHCVL 05:40
PROVIDERS: ATTEND Internal Medicine Interventional Cardiology
DX: I25.10 Atherosclerotic heart disease of native coronary artery without angina pectoris (principal); R06.02 Shortness of breath; E11.36 Type 2 diabetes mellitus with diabetic cataract; E11.51 Type 2 diabetes mellitus with diabetic peripheral angiopathy without gangrene; E78.5 Hyperlipidemia, unspecified; I10 Essential (primary) hypertension; J44.9 Chronic obstructive pulmonary disease, unspecified
CPT/HCPCS: 94150; 93458; 80061; 80053; 80074; 84443; 83735; 85025; 85610; 85730; 81001; 87070; 83036; 93931; 93970; 93922; 93880; C1769; J2001; J3010; J1644; Q9967

== ENCOUNTER → 2022-04-01 | Outpatient (CLI) | payer MEDICARE ==
[2022-04-01 11:36] LABS: INR 1.1 (<1.2); Partial Thromboplastin Time 26.5 sec (22.0-30.0); Prothrombin Time 11.5 sec (9.0-12.0)
[2022-04-01 17:31] LABS: HCT 37.2 % (39.6-50.0); MCH 24.3 pg (27.0-32.0); MCHC 29.6 g/dL (32.0-37.0); MCV 82.1 fL (80.0-97.0); Mean Platelet Volume 11.5 fL (9.5-12.2); NRBC Per 100 WBC 0 /100 WBCS (0.0-0.0); Platelet Count 215 X 10*3/uL (140-440); RBC 4.53 X 10*6/uL (4.40-5.60); RDW 17.3 % (11.5-14.5); WBC 6.65 X 10*3/uL (4.50-10.00)
[2022-04-01 17:50] LABS: African American GFR (CKD) 67.7 (60.0-200.0); Albumin/Globulin Ratio 1.67 (1.60-3.17); Anion Gap 12.5 mmol/L (10.00-18.00); BUN/Creat Ratio 12.42 Ratio (12.00-20.00); Blood Urea Nitrogen 14.9 mg/dL (9.0-27.0); Calcium 8.6 mg/dL (8.7-10.3); Carbon Dioxide 22.5 mmol/L (20.0-27.5); Globulin 2.4 g/dL (1.6-3.3); Non-African American GFR(CKD) 58.4 (60.0-200.0); Potassium 4.4 mmol/L (3.5-5.5); Total Bilirubin 0.7 mg/dL (0.30-1.20); Total Protein 6.4 g/dL (6.2-8.2)
== END | disposition home or self-care (01) ==
LOC: LABPAT 10:55
PROVIDERS: ATTEND Thoracic Surgery (Cardiothoracic Vascular Surgery)
DX: I25.10 Atherosclerotic heart disease of native coronary artery without angina pectoris (principal)
CPT/HCPCS: 80053; 85027; 85610; 85730

== ENCOUNTER 2022-04-11 05:40 | Inpatient (IN) | payer MEDICARE ==
[~2022-04-11 05:40] MED LIST changes: +ALBUMIN HUMAN 25% 50 ML IV ONE; +ALBUMIN HUMAN 5% 500 ML IVPB ONE; -ALPRAZolam 0.25 MG TAB PO PRN; -ALPRAZolam 0.5 MG TAB PO PRN; +ASPIRIN 325 MG TAB PO ONE; -ASPIRIN 325 MG TAB PO STA; +ATORVASTATIN 10 MG TAB PO ONE; -ATORVASTATIN 80 MG TAB PO STA; +CALCIUM CHLORIDE 100 MG/ML 10 ML SYRINGE IV ONE; +CARDIOPLEGIC SOLN (K+ 16 MEQ/L 1,000 ML with SODIUM BICARB (1 MEQ/ML) 20 ML, LIDOCAINE ... PERFUSION ONE; +CHLORHEXIDINE GLUCONATE 15 ML CUP MUCOUS MEM ONE; +CLEVIDIPINE BUTYRATE 25 MG in EMPTY BAG 1 BAG IV ONE; +DILTIAZEM 125 MG in SODIUM CHLORIDE 0.9% 100 ML IV ONE; +HEPARIN SODIUM 1,000 UN/ML (10ML VL) IV ONE; -HEPARIN SODIUM,PORCINE 10,000 UNIT in SODIUM CHLORIDE 0.9% 1,000 ML IRRIGATION PRN; -HEPARIN SODIUM,PORCINE 2,500 UNIT in SODIUM CHLORIDE 0.9% 250 ML IRRIGATION PRN; +HEPARIN SODIUM,PORCINE 5,000 UNIT in SODIUM CHLORIDE 0.9% 500 ML 500 ML IV ONE; +INSULIN REGULAR 100 UNIT in SODIUM CHLORIDE 0.9% 100 ML IV ONE; +LACTATED RINGERS 1,000 ML IV ONE; +MAGNESIUM SULFATE 16.24 MEQ in EMPTY SYRINGE 1 SYR IV ONE; +MANNITOL 25% 12.5 GM/50 ML VIAL IV ONE; +METOPROLOL TARTRATE 12.5 MG TAB PO ONE; +MUPIROCIN 2% OINT 22 GM TUBE NASAL ONE; +NITROGLYCERIN SL TABS 0.4 MG TAB SUBLINGUAL ONE; -NITROGLYCERIN SL TABS 0.4 MG TAB SUBLINGUAL PRN; +NITROGLYCERIN-D5W PMX 25 MG/250 ML BTL IV ONE; +NITROGLYCERIN-D5W PMX 50 MG in DEXTROSE/WATER 1 250ML.BAG IV ONE; +NOREPINEPHRINE 4 MG in SODIUM CHLORIDE 0.9% 250 ML IV ONE; +PAPAVERINE 360 MG in SODIUM CHLORIDE 0.9% 90 ML IV ONE; +PHENYLEPHRINE 10 MG/ML VIAL IV ONE; +PHENYLEPHRINE 40 MG in SODIUM CHLORIDE 0.9% 250 ML IV ONE; +PROTAMINE SULFATE 10 MG/ML 25 ML VIAL IV ONE; +PROTAMINE SULFATE 250 MG in EMPTY BAG 1 BAG IV ONE; +SODIUM BICARB 8.4% 50 ML SYR (1 MEQ/ML) IV ONE; +SODIUM CHLORIDE 0.9% 1,000 ML IV ONE; -SODIUM CHLORIDE 0.9% 1,000 ML in EMPTY BAG 1 BAG IV SCH; +TRANEXAMIC ACID 2,000 MG in SODIUM CHLORIDE 0.9% 80 ML IV ONE; +ceFAZolin 1,000 MG in SODIUM CHLORIDE 0.9% IRRIGATIO 1,000 ML IRRIGATION ONE; +propofoL 1,000 MG/100 ML VIAL IV ONE
[2022-04-11 06:25] LABS: Glucose,Whole Blood 167 mg/dL (70-110)
[2022-04-11] MEDS ORDERED: PROPOFOL 10 MG/ML 20 ML VIAL IV ONE (07:41)
[2022-04-11] MEDS ORDERED: VECURONIUM 10 MG VIAL IV ONE (07:41)
[2022-04-11] MEDS ORDERED: ALBUMIN HUMAN 5% (25gm) 500 ML VIAL IVPB ONE (07:41)
[2022-04-11] MEDS ORDERED: INSULIN REGULAR 100 UNIT/ML VIAL (IV) ONE (07:41)
[2022-04-11] MEDS ORDERED: SODIUM CHLORIDE 0.9% IRRIG 1,000 ML BTL IRRIGATION ONE (07:41)
[2022-04-11] MEDS ORDERED: ePHEDrine 50 MG/ML 1 ML VIAL ONE (07:41)
[2022-04-11] MEDS ORDERED: fentaNYL (PF) 50 MCG/ML 50 ML VIAL ONE (07:41)
[2022-04-11] MEDS ORDERED: HEPARIN SODIUM,PORCINE 10,000 UNIT/ML 1 ML VIAL ONE (07:41)
[2022-04-11] MEDS ORDERED: PROTAMINE SULFATE 10 MG/ML 5 ML VIAL IV ONE (07:41)
[2022-04-11] MEDS ORDERED: MIDAZOLAM HCL 10 MG/10 ML VIAL ONE (07:41)
[2022-04-11 08:34] LABS: ABG Base Excess -1.7 mmol/L; ABG Glucose Whole Blood 176 mg/dL (75-99); ABG HCO3 23 mmol/L (21-25); ABG Hematocrit 28 % (34.0-46.0); ABG Ionized Calcium 4.5 mg/dL (4.5-5.3); ABG PCO2 40 mmHg (35-45); ABG PH 7.37 (7.35-7.45); ABG Potassium Whole Blood 4.7 mmol/L (3.4-4.5); ABG Sodium Whole Blood 142 mmol/L (135-146); ABG TCO2 25 mmol/L (19-24)
[2022-04-11 08:38] LABS: ABG Base Excess -1.8 mmol/L; ABG Glucose Whole Blood 176 mg/dL (75-99); ABG HCO3 23 mmol/L (21-25); ABG Hematocrit 28 % (34.0-46.0); ABG Ionized Calcium 4.5 mg/dL (4.5-5.3); ABG PCO2 39 mmHg (35-45); ABG PH 7.38 (7.35-7.45); ABG Potassium Whole Blood 4.7 mmol/L (3.4-4.5); ABG Sodium Whole Blood 143 mmol/L (135-146); ABG TCO2 24 mmol/L (19-24)
--- NOTE | 2022-04-11 08:49 | P.ANPRN ---
Procedure Note - Anesthesia - Invasive Line Right Arterial Line Time Out Performed: Yes Date of Procedure: 04/11/22 Time of Procedure: 07:10 Location of Patient: PreOp Preparation: Sterile Prep, Sterile Dressing Arterial Line Location: Radial Ultrasound Used: No Needle Guage: 20 Narrative: Right radial arterial line placed by SRNA using Seldinger technique Right Central Line Time Out Performed: Yes Date of Procedure: 04/11/22 Time of Procedure: 07:15 Location of Patient: PreOp Preparation: Sterile Prep, Sterile Dressing Ultrasound Used: Yes Purpose - Visualization and Identification of Vasculature: Yes Needle Guage: 18 Image Stored and Saved: Yes Narrative: Central line placement per sterile protocol utilized. Right [place] Javi Time Out Performed: Yes Date of Procedure: 04/11/22 Time of Procedure: 07:25 Location of Patient: PreOp Preparation: Sterile Prep, Sterile Dressing Ultrasound Used: No Narrative: Right [place] javi placed after cordis secured. Ports flushed and balloon tested. Advanced until RV and then PA waveforms obtained. Balloon deflated and catheter secured @ 40 cm. Position confirmed on .
[2022-04-11] MEDS ORDERED: SODIUM CHLORIDE 0.9% 500 ML 500 ML with HEPARIN SODIUM,PORCINE 5,000 UNIT IV ONE ×2 (10:07)
[2022-04-11] MEDS ORDERED: PAPAVERINE 360 MG in SODIUM CHLORIDE 0.9% 90 ML IV ONE (10:08)
[2022-04-11] MEDS ORDERED: ceFAZolin 1,000 MG in SODIUM CHLORIDE 0.9% 1,000 ML IRRIGATION ONE (10:08)
[2022-04-11 10:16] LABS: ABG Base Excess -1.9 mmol/L; ABG Glucose Whole Blood 171 mg/dL (75-99); ABG HCO3 22 mmol/L (21-25); ABG Hematocrit 26 % (34.0-46.0); ABG Ionized Calcium 4.4 mg/dL (4.5-5.3); ABG PCO2 35 mmHg (35-45); ABG PH 7.41 (7.35-7.45); ABG Potassium Whole Blood 4.8 mmol/L (3.4-4.5); ABG Sodium Whole Blood 143 mmol/L (135-146); ABG TCO2 24 mmol/L (19-24)
[2022-04-11 11:10] LABS: ABG Base Excess -2.6 mmol/L; ABG Glucose Whole Blood 162 mg/dL (75-99); ABG HCO3 22 mmol/L (21-25); ABG Hematocrit 25 % (34.0-46.0); ABG Ionized Calcium 4.4 mg/dL (4.5-5.3); ABG PCO2 37 mmHg (35-45); ABG PH 7.39 (7.35-7.45); ABG Potassium Whole Blood 4.4 mmol/L (3.4-4.5); ABG Sodium Whole Blood 142 mmol/L (135-146); ABG TCO2 23 mmol/L (19-24)
[2022-04-11 12:06] LABS: ABG Base Excess -2.8 mmol/L; ABG Glucose Whole Blood 146 mg/dL (75-99); ABG HCO3 22 mmol/L (21-25); ABG Ionized Calcium 4.4 mg/dL (4.5-5.3); ABG PCO2 37 mmHg (35-45); ABG PH 7.38 (7.35-7.45); ABG Potassium Whole Blood 4.2 mmol/L (3.4-4.5); ABG Sodium Whole Blood 143 mmol/L (135-146); ABG TCO2 23 mmol/L (19-24)
[2022-04-11 12:26] LABS: ABG Base Excess -2.8 mmol/L; ABG Glucose Whole Blood 138 mg/dL (75-99); ABG HCO3 22 mmol/L (21-25); ABG Ionized Calcium 4.3 mg/dL (4.5-5.3); ABG PCO2 37 mmHg (35-45); ABG PH 7.38 (7.35-7.45); ABG PO2 356 mmHg (83-108); ABG Potassium Whole Blood 4.1 mmol/L (3.4-4.5); ABG Sodium Whole Blood 143 mmol/L (135-146); ABG TCO2 23 mmol/L (19-24)
[2022-04-11 12:43] LABS: ABG Lactic Acid Whole Blood 2.5 mmol/L (0.5-1.6); ABG PO2 >420 mmHg (83-108)
[2022-04-11 12:44] LABS: ABG Lactic Acid Whole Blood 2.5 mmol/L (0.5-1.6); ABG PO2 >420 mmHg (83-108)
[2022-04-11 12:45] LABS: ABG Lactic Acid Whole Blood 2.8 mmol/L (0.5-1.6); ABG PO2 >420 mmHg (83-108)
[2022-04-11 12:48] LABS: ABG Lactic Acid Whole Blood 3.6 mmol/L (0.5-1.6); ABG PO2 >420 mmHg (83-108)
[2022-04-11 12:49] LABS: ABG Hematocrit 23 % (34.0-46.0); ABG Lactic Acid Whole Blood 3.5 mmol/L (0.5-1.6); ABG PO2 >420 mmHg (83-108)
[2022-04-11 12:50] LABS: ABG Hematocrit 23 % (34.0-46.0); ABG Lactic Acid Whole Blood 3.6 mmol/L (0.5-1.6)
[2022-04-11] MEDS ORDERED: BENZOCAINE/MENTHOL LOZENG 1 EACH LOZENGE MUCOUS MEM PRN (12:50)
[2022-04-11] MEDS ORDERED: METOCLOPRAMIDE 5 MG/ML 2 ML VIAL IVP PRN (12:50)
[2022-04-11] MEDS ORDERED: hydrALAZINE HCL 20 MG/ML 1 ML VIAL IVP PRN (12:50)
[2022-04-11] MEDS ORDERED: Potassium Replacement Protocol 1 EACH MISC MISCELLANE PRN (12:50)
[2022-04-11] MEDS ORDERED: Magnesium Replacement Protocol 1 EACH MISC MISCELLANE PRN (12:50)
[2022-04-11] MEDS ORDERED: DEXMEDETOMIDINE/0.9% NACL(PMX) 400 MCG in EMPTY BAG 1 BAG IV SCH (12:50)
[2022-04-11] MEDS ORDERED: ONDANSETRON 4 MG/2 ML VIAL IVP PRN (12:50)
[2022-04-11] MEDS ORDERED: CALCIUM GLUCONATE IN NACL 2 GM in SALINE 1 100ML.BAG IVPB PRN (12:50)
[2022-04-11] MEDS ORDERED: AMIODARONE 360 MG in DEXTROSE 5% IN WATER 200 ML IV ONE ×2 (12:50)
[2022-04-11] MEDS ORDERED: NITROGLYCERIN-D5W PMX 50 MG in DEXTROSE/WATER 1 250ML.BAG IV SCH (12:50)
[2022-04-11] MEDS ORDERED: DEXTROSE 50% SYRINGE 50 ML IVP PRN ×2 (12:50)
[2022-04-11] MEDS ORDERED: DILTIAZEM 125 MG in SODIUM CHLORIDE 0.9% 100 ML IV SCH (13:00)
[2022-04-11] MEDS ORDERED: ALBUMIN HUMAN 5% 250 ML IVPB ONE (13:01)
--- NOTE | 2022-04-11 13:09 | P.ANPRN ---
Procedure Note - Anesthesia - Intraop Pre Bypass Intraop - Anesthesia Indication: CAD + MR Date of Procedure: 04/11/22 Pre-operative Diagnosis: CAD + MR Post-operative Diagnosis: Same Surgeon: Tawanda Dorman Left Ventricle: EF 60% Ejection Fraction: Normal Regional Wall Motion Abnormalities: None Left Ventricle Hypertrophy: Yes R. Ventricle Function: Normal Anatomy: Trileaflet Aortic Stenosis: None Aortic Regurgitation: None Mitral Stenosis: None Mitral Regurgitation: Mild Tricuspid Stenosis: None Tricuspid Regurgitation: None Pulmonic Stenosis: None Pulmonic Regurgitation: None R. Atrial Dilation: No R. Atrial PFO: No L. Atrial Dilation: No Aortic Dissection: No Aortic Calcification: Moderate Plural Effusion: None - Intraop Post Bypass Intraop Post Bypass Procedure Performed: CABG + LA appendage ligation Left Ventricle: Reduced size MATTHIEU, EF 60% Ejection Fraction: Normal Regional Wall Motion Abnormalities: None R. Ventricle Function: Normal Aortic Valve: Unchanged Mitral Valve: Unchanged Tricuspid: Unchanged Pulmonic: Unchanged Aortic Dissection: No
[2022-04-11] MEDS: INSULIN REGULAR 100 UNIT in SODIUM CHLORIDE 0.9% 100 ML IV SCH (13:15)
[2022-04-11 13:18] LABS: Glucose,Whole Blood 127 mg/dL (70-110)
--- NOTE | 2022-04-11 13:26 | P.OP ---
Date of Procedure: 04/11/22 Preoperative Diagnosis: Coronary artery disease Postoperative Diagnosis: Same Procedure(s) Performed: Off-pump coronary artery bypass grafting 4 with SANTA to LAD, left radial artery graft to first obtuse marginal, saphenous vein graft to first diagonal, s aphenous vein graft to posterior lateral branch of the right coronary artery. Also ligation of the left atrial appendage with 35 mm AtriCure clamp. Also endovascular vein harvest of bilateral greater saphenous vein and endovascular left radial artery harvest. Implants: A 35 mm AtriCure clamp Anesthesia: GETA Surgeon: Tawanda Dorman Nude Model #2: Barry Espinal Estimated Blood Loss (ml): 200 IV fluids (ml): 500 Urine output (ml): 500 Pathology: none sent Condition: stable Disposition: ICU Indications for Procedure: 77-year-old male presents with anginal symptomatology and positive stress test. Cardiac catheterization demonstrated left main triple-vessel coronary artery disease. Coronary bypass grafting was requested by Dr. Campoverde Operative Findings: Greater saphenous vein was initially harvested from the right thigh. The most proximal portion was good but the mid to distal portion was very small. Second piece was harvested from the left thigh. This had a longer proximal segment that was good but again became small distally. Between the 2 of these we had enough to do the needed grafts. Left radial artery was a good conduit the SANTA was a good conduit. There is diffuse calcific coronary artery disease present. This is most notable in the circumflex distribution. demonstrated good ventricular function and this was preserved throughout the operation. There was just mild mitral regurgitation noted. Description of Procedure: Patient was brought to the operating room and placed supine on the operating table. Gen. anesthesia was induced. Patient was intubated. The anterior torso and bilateral lower extremities and left upper extremity were sterilely prepped and draped. Endovascular radial artery harvest was performed. Simultaneously the saphenous vein was harvested endoscopically from the right thigh. Simultaneously a midline sternotomy was performed and the left hemisternum was retracted upwards, the left internal mammary artery was harvested on a vascularized pedicle left intact on its origin from the subclavian and divided distally. Left pleural space was drained with a 32-Cypriot chest tube. Standard sternal retractor was placed. This point we went on to harvest the left greater saphenous vein in the left thigh. Midline pericardiotomy was performed. The heart was exposed with pericardial sutures. Patient was systemically heparinized. ACTs were maintained greater than 250 during grafting. We began with grafting the SANTA to the LAD. The LAD was grafted in its midportion beyond the calcific palpable disease. It was opened and blood flow control with a 1.5 mm flow through. It was a 1.75-2 mm vessel. End-to-side anastomosis between the SANTA and the LAD was performed with running 8-0 Prolene suture. On completion the anastomosis the flow through was removed effectively probing the proximal distal portion anastomosis. Suture was tied with good result and hemostasis and the inflow was open. The graft was noted to lay well with good length and have a good cobra head good with no evidence of narrowing. The MARIELLE pedicle was tacked surrounding epicardium with 6-0 silk. 35 mm AtriCure clip was applied to the base of the left atrial appendage. The first diagonal branch was now stabilized. It was opened and blood flow control with a 1.5 mm flow through. It was a 1.5 mm vessel with mild diffuse disease present. End-to-side anastomosis between the saphenous vein from the right thigh and the diagonal was performed with running 7-0 Prolene suture. On completion anastomosis the flow through was removed effectively probing the proximal distal portion anastomosis. Suture was tied with good result and hemostasis. Heart was lowered into anatomic position and the vein was brought beneath the SANTA to the ascending aorta and cut to appropriate length. Backbleeding was controlled with a bulldog clamp. The inferior wall was now exposed. Posterior lateral branch of the right coronary artery was stabilized. Was opened fairly proximally were was a 1.5-1.75 mm vessel. Blood flow was controlled 1.5 mm flow through. This vessel had minimal disease. End-to-side anastomosis between piece of saphenous vein from the left thigh and the posterior lateral branch was performed with running 7-0 Prolene suture. On completion anastomosis the flow through was removed effectively probing the proximal distal portion anastomosis. Suture was tied with good result and hemostasis. Backbleeding was noted into the vein graft and control with a bulldog clamp. Heart was lowered into anatomic position and the vein was cut to appropriate length to reach the ascending aorta. Lateral wall the heart was exposed. The major marginal branch was a large vessel but diffusely calcific. A soft spot in its midportion was chosen. It was opened here and blood flow control the 1.5 mm flow through. It was a 1.5-1.75 mm vessel. Left radial artery was anastomosed in end-to-side fashion with running 7-0 Prolene suture. On completion anastomosis the flow through was removed 50 probe the proximal distal portion anastomosis. Suture was tied with good result and hemostasis and good backbleeding was noted in the radial artery control with a bulldog clamp. Heart was lowered into anatomic position, left radial artery was brought beneath the SANTA and up to the ascending aorta. It was cut to appropriate length. Back flow was controlled with a bulldog clamp. Blood pressure was controlled by anesthesia. Partial- occlusion clamp was placed in the ascending aorta. 34 mm punch holes were created in the ascending aorta and the proximal anastomoses constructed with running 6-0 Prolene suture. On completion of the proximal anastomoses they were de-aired by backbleeding and needle holes and the partial occlusion clamp was removed and the bulldog clamps were removed. Good hemostasis was now noted throughout at all anastomoses. Heparin was reversed with protamine. Mediastinum was drained with a 36-Cypriot chest tube and irrigated with antibiotic solution. Sternum was closed with 4 sternal wires and 3 cable plates. Fascia was closed with 0 Ethibond. Subcutaneous and subcuticular layers of the legs, arm and chest were closed with layers of Vicryl suture. Dry sterile dressings were applied. Patient was transferred to the ICU in stable condition. No blood transfusions were inotropic support were required.
[2022-04-11] MEDS: SODIUM CHLORIDE 0.9% 1,000 ML IV SCH (13:30)
[2022-04-11 13:34] LABS: ABG Base Excess -3.1 mmol/L; ABG HCO3 23 mmol/L (21-25); ABG PCO2 43 mmHg (35-45); ABG PH 7.33 (7.35-7.45); ABG PO2 286 mmHg (83-108); ABG TCO2 24 mmol/L (19-24); Allen Test Performed? Yes
--- NOTE | 2022-04-11 13:44 | XR ---
EXAMINATION TYPE: XR chest 1V portable DATE OF EXAM: 04/11/2022 CLINICAL HISTORY: Postopen cardiac surgery. TECHNIQUE: Single AP portable supine view of the chest is obtained. COMPARISON: Chest x-ray from April 17, 2021 FINDINGS: There is new endotracheal tube terminating at the inferior clavicular margin approximately 3 to 4 cm above the dayan. There is no orogastric tube projecting below left hemidiaphragm. There i s new left-sided chest tube. Overlying sternal wires and mediastinal clips along with left atrial vijay endage clip are now seen. There is new right internal jugular Claude-Javi catheter terminating at expec silvina level of the pulmonary outflow track. Lower lung volumes on current study with small right pleural effusion and right basilar opacity. Ther e is more prominent left basilar opacity. Left-sided subcutaneous emphysema. Cardiac silhouette size more prominent measuring upper limits of normal. Increased interstitial markings bilaterally are now present. Degenerative change bilateral glenohumeral joints redemonstrated. IMPRESSION: 1. New tubes and lines are satisfactory in position. 2. New mild to moderate interstitial edema and small bilateral pleural effusions with left greater th an right bibasilar acute atelectasis and/or developing infiltrate. No pneumothorax evident with left- sided chest tube in place.
[2022-04-11] MEDS: CLEVIDIPINE BUTYRATE 25 MG in EMPTY BAG 1 BAG IV SCH ×2 (13:53→15:25)
[2022-04-11] MEDS ORDERED: ALBUTEROL NEBULIZED 2.5 MG/3 ML INHALATION PRN (13:56)
[2022-04-11 14:06] LABS: Anisocytosis Slight; Basophils % (A) 0 %; Eosinophils # (A) 0.1 k/uL (0-0.7); Eosinophils % (A) 2 %; Hypochromasia Marked; Lymphocytes # (A) 1.7 k/uL (1.0-4.8); Lymphocytes % (A) 22 %; MCH 25.5 pg (25.0-35.0); MCHC 31.3 g/dL (31.0-37.0); MCV 81.5 fL (80.0-100.0); Mean Platelet Volume 8.1; Monocytes # (A) 0.3 k/uL (0-1.0); Monocytes % (A) 4 %; Neutrophils # (A) 5.6 k/uL (1.3-7.7); Neutrophils % (A) 72 %; Platelet Count 104 k/uL (150-450); RBC 2.82 m/uL (4.30-5.90); RDW 16.1 % (11.5-15.5); WBC 7.8 k/uL (3.8-10.6)
[2022-04-11 14:07] LABS: HGB 7.2 gm/dL (13.0-17.5)
[2022-04-11 14:19] LABS: ALT 18 U/L (4-49); AST 27 U/L (17-59); African American GFR (CKD) >90 (>60 ml/min/1.73 sqM); Albumin 2.8 g/dL (3.5-5.0); Alkaline Phosphatase 81 U/L (38-126); Anion Gap 6 mmol/L; Blood Urea Nitrogen 14 mg/dL (9-20); Carbon Dioxide 23 mmol/L (22-30); Chloride 113 mmol/L (98-107); Glucose 117 mg/dL (74-99); Magnesium 1.5 mg/dL (1.6-2.3); Non-African American GFR(CKD) 84 (>60 ml/min/1.73 sqM); Potassium 4.1 mmol/L (3.5-5.1); Sodium 142 mmol/L (137-145); Total Bilirubin 0.4 mg/dL (0.2-1.3); Total Protein 4.3 g/dL (6.3-8.2)
[2022-04-11 14:20] LABS: INR 1.4 (<1.2); Partial Thromboplastin Time 35.4 sec (22.0-30.0); Prothrombin Time 14.6 sec (9.0-12.0)
[2022-04-11 14:21] LABS: Glucose,Whole Blood 110 mg/dL (70-110)
[2022-04-11] MEDS: MAGNESIUM SULFATE-D5W PMX 1 GM in DEXTROSE/WATER 1 100ML.BAG IVPB SCH ×2 (14:54→15:52)
--- NOTE | 2022-04-11 14:58 | P.CONS ---
History of Present Illness - Reason for Consult Consult date: 04/11/22 medical management - History of Present Illness Patient is a 77-year-old male with multivessel coronary artery disease, cirrhosis, insulin-dependent diabetes on insulin pump, peripheral vascular disease, history of rectal bleeding, Daly's esophagus, iron deficiency anemia, melanoma, asthma, depression, former nicotine dependence, occasional alcohol use presenting for elective CABG. He is now status post surgery. CABG 4 with SANTA to LAD, left radial artery graft to first obtuse margin, saphenous vein graft to first diagonal, saphenous vein graft to posterior lateral branch of the RCA. Also had left atrial appendage ligation. [facility] has been consulted for medical management. Patient is currently intubated and sedated. On propofol and Precedex. Patient seen and examined at bedside. Pertinent positives and negatives as discussed in HPI, a complete review of systems was performed and all other systems are negative. Vital signs reviewed General: Obese, intubated and sedated Derm: warm, dry, midline sternal dressing, clean dry and intact Head: atraumatic, normocephalic, symmetric Eyes: anicteric sclera, pupils equal round reactive to light ENT: Nose and ears atraumatic Neck: No thyromegaly, supple Mouth: no lip lesion, mucus membranes moist Cardiovascular: S1S2 reg, no murmur, no edema Lungs: Bilateral rhonchi, no wheeze, no accessory muscle use Abdominal: soft, nondistended Ext: no gross muscle atrophy, Neuro: CN II-XII grossly intact Psych: Alert, oriented, appropriate affect Assessment/Plan: Severe multivessel coronary artery disease Status post CABG 4 -Post CABG 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, director of accreditation -Currently sedated and intubated -Aspirin and Plavix, and statin -Pain control and antiemetics -Subcu heparin for DVT prophylaxis Insulin-dependent diabetes, on insulin pump -Hold off using insulin pump at the moment -on insulin drip History of cirrhosis History of Daly's esophagus History of iron deficiency anemia -Continue to monitor for any GI bleed -Protonix Hypertension -hold isosorbide -On clevidipine gtt Asthma -Home inhalers Thank you for allowing us to participate in the care of this pleasant patient. Do not hesitate to contact us with questions. Someone can be reached from the [facility] hospitalist group all hours of the day at [phone] or via perfect serve. Past Medical History Past Medical History: Asthma, Cancer, Chest Pain / Angina, Diabetes Mellitus, GERD/Reflux, Hearing Disorder / Deafness, Hyperlipidemia, Hypertension, Liver Disease, Osteoarthritis (OA), Thyroid Disorder Additional Past Medical History / Comment(s): HX MELANOMA LEFT EYELID, HX IRON IFUSIONS(Last 2017), DALY'S ESOPHAGUS, PARKINSONS, TINNITUS IN LEFT EAR, hx. DARK BLOODY STOOLS-last few months ago, FATTY LIVER-possible cirrhosis per pt- sees Tumma, LIMITED ROM RIGHT WRIST FROM SURGERY, hx Hyperthyroid. History of Any Multi-Drug Resistant Organisms: None Reported Past Surgical History: Appendectomy, Heart Catheterization, Hernia Repair, Orthopedic Surgery Additional Past Surgical History / Comment(s): COLONOSCOPY, MELANOMA LEFT EYELID WITH SKIN GRAFT, RIGHT INGUINAL HERNIA & UMBILICAL HERNIA REPAIRS, CATARACT RIGHT EYE, HIATAL HERNIA, RIGHT WRIST FUSION, left knee surgery. Past Anesthesia/Blood Transfusion Reactions: No Reported Reaction Past Psychological History: Anxiety, Depression Smoking Status: Former smoker Past Alcohol Use History: Occasional Additional Past Alcohol Use History / Comment(s): QUIT SMOKING ABOUT 1984, SMOKED < 1 PPD. SMOKED APPROX 20 YRS. Past Drug Use History: None Reported - Past Family History Sister(s) Family Medical History: Cancer Additional Family Medical History / Comment(s): Breast Cancer. Mother Family Medical History: Cancer, Hypertension Additional Family Medical History / Comment(s): COLON CANCER. Father Family Medical History: Coronary Artery Disease (CAD), Diabetes Mellitus, Myocardial Infarction ([place]) Additional Family Medical History / Comment(s): HEART PROBLEMS. Medications and Allergies Home Medications Medication Instructions Recorded Confirmed Type atenoloL [Tenormin] 25 mg PO HS 11/03/14 04/11/22 History Omeprazole [PriLOSEC] 20 mg PO BID 09/06/17 04/01/22 History Primidone [Mysoline] 250 mg PO BID 09/06/17 04/01/22 History Loperamide [Imodium] 2 mg PO QID PRN 03/30/21 04/01/22 History Albuterol Sulfate [Proair Hfa] 2 puff INHALATION QID PRN 04/21/21 04/01/22 History DULoxetine HCL 60 mg PO DAILY 04/21/21 04/01/22 History Pregabalin [Lyrica] 300 mg PO HS 04/21/21 04/01/22 History Aspirin 81 mg PO HS 03/22/22 04/01/22 History Insulin Aspart (For Pump) [NovoLOG 0.01 unit SQ-PUMP CONTINUOUS 03/22/22 04/11/22 History (For Pump)] Isosorbide Mononitrate [Isosorbide 30 mg PO HS 03/22/22 04/01/22 History Mononitrate ER] Nitroglycerin Sl Tabs [Nitrostat] 0.4 mg SUBLINGUAL Q5M PRN #25 tab 03/23/22 04/01/22 Rx Ascorbic Acid [Vitamin C] 500 mg PO DAILY 04/01/22 04/01/22 History Atorvastatin [Lipitor] 40 mg PO HS 04/01/22 04/01/22 History Budesonide/Glycopyr/Formoterol 1 puff INHALATION BID 04/01/22 04/01/22 History [Breztri Aerosphere Inhaler] Cholecalciferol [Vitamin D3 (25 25 mcg PO DAILY 04/01/22 04/01/22 History Mcg = 1000 Iu)] Allergies Allergy/AdvReac Type Severity Reaction Status Date / Time Penicillins Allergy Rash/Hives Verified 04/01/22 14:51 Physical Exam Vitals: Vital Signs Temp Pulse Pulse Resp BP BP Pulse Ox 04/11/22 13:41 04/11/22 13:40 68 12 100 04/11/22 13:30 67 12 100 04/11/22 13:22 04/11/22 13:20 64 12 100 04/11/22 13:10 95.0 F L 62 04/11/22 05:55 97.6 F 69 20 136/84 137/75 97 FiO2 04/11/22 13:41 50 04/11/22 13:40 04/11/22 13:30 04/11/22 13:22 100 04/11/22 13:20 100 04/11/22 13:10 04/11/22 05:55 Intake and Output 04/10/22 04/11/22 04/11/22 22:59 06:59 14:59 Intake Total 100 4 Output Total 950 Balance 100 -946 Intake: IV 100 4 Output: Urine 650 Estimated Blood Loss 300 Other: Weight 108.9 kg ABP, PAP, CO, CI - Last 8 Hours Arterial Blood Pressure 109/45 Arterial Blood Pressure 108/41 Arterial Blood Pressure 96/43 Pulmonary Artery Pressure 36/19 Pulmonary Artery Pressure 34/17 Pulmonary Artery Pressure 35/19 Cardiac Output 6.2 Cardiac Output 5.3 Cardiac Index 2.8 Cardiac Index 2.4 Results CBC & Chem 7: 04/11/22 13:15 04/11/22 13:15 Labs: Abnormal Lab Results - Last 24 Hours (Table) 04/01/22 04/11/22 04/11/22 Range/Units 11:05 06:18 08:34 ABG pH (7.35-7.45) ABG pO2 >420 H (83-108) mmHg ABG Total CO2 25 H (19-24) mmol/L ABG O2 Saturation 100.0 H (94-97) % ABG Hematocrit 28 L (34.0-46.0) % ABG Potassium 4.7 H (3.4-4.5) mmol/L ABG Ionized Calcium (4.5-5.3) mg/dL ABG Glucose 176 H (75-99) mg/dL ABG Lactic Acid 2.5 H* (0.5-1.6) mmol/L Hemoglobin 9.1 L (13.0-17.5) gm/dL POC Glucose (mg/dL) 167 H (70-110) mg/dL Arterial Blood Potassium 4.7 H (3.4-4.5) mmol/L Arterial Blood Glucose 176 H (75-99) mg/dL Crossmatch See Detail 04/11/22 04/11/22 04/11/22 Range/Units 08:37 10:15 11:09 ABG pH (7.35-7.45) ABG pO2 >420 H >420 H >420 H (83-108) mmHg ABG Total CO2 (19-24) mmol/L ABG O2 Saturation 100.0 H 100.0 H 100.0 H (94-97) % ABG Hematocrit 28 L 26 L 25 L (34.0-46.0) % ABG Potassium 4.7 H 4.8 H (3.4-4.5) mmol/L ABG Ionized Calcium 4.4 L 4.4 L (4.5-5.3) mg/dL ABG Glucose 176 H 171 H 162 H (75-99) mg/dL ABG Lactic Acid 2.5 H* 2.8 H* 3.6 H* (0.5-1.6) mmol/L Hemoglobin 9.1 L 8.6 L 8.3 L (13.0-17.5) gm/dL POC Glucose (mg/dL) (70-110) mg/dL Arterial Blood Potassium 4.7 H 4.8 H (3.4-4.5) mmol/L Arterial Blood Glucose 176 H 171 H 162 H (75-99) mg/dL Crossmatch 04/11/22 04/11/22 04/11/22 Range/Units 12:05 12:25 13:17 ABG pH (7.35-7.45) ABG pO2 >420 H 356 H (83-108) mmHg ABG Total CO2 (19-24) mmol/L ABG O2 Saturation 100.0 H 100.0 H (94-97) % ABG Hematocrit 23 L 23 L (34.0-46.0) % ABG Potassium (3.4-4.5) mmol/L ABG Ionized Calcium 4.4 L 4.3 L (4.5-5.3) mg/dL ABG Glucose 146 H 138 H (75-99) mg/dL ABG Lactic Acid 3.5 H* 3.6 H* (0.5-1.6) mmol/L Hemoglobin 7.6 L 7.4 L (13.0-17.5) gm/dL POC Glucose (mg/dL) 127 H (70-110) mg/dL Arterial Blood Potassium (3.4-4.5) mmol/L Arterial Blood Glucose 146 H 138 H (75-99) mg/dL Crossmatch 04/11/22 Range/Units 13:32 ABG pH 7.33 L (7.35-7.45) ABG pO2 286 H (83-108) mmHg ABG Total CO2 (19-24) mmol/L ABG O2 Saturation 100.0 H (94-97) % ABG Hematocrit (34.0-46.0) % ABG Potassium (3.4-4.5) mmol/L ABG Ionized Calcium (4.5-5.3) mg/dL ABG Glucose (75-99) mg/dL ABG Lactic Acid (0.5-1.6) mmol/L Hemoglobin (13.0-17.5) gm/dL POC Glucose (mg/dL) (70-110) mg/dL Arterial Blood Potassium (3.4-4.5) mmol/L Arterial Blood Glucose (75-99) mg/dL Crossmatch
--- NOTE | 2022-04-11 15:02 | P.CNPUL ---
History of Present Illness Consult date: 04/11/22 Requesting physician: Tawanda Dorman Reason for consult: other (Ventilator/critical care management) Chief complaint: Coronary artery disease History of present illness: This is a 77-year-old male patient with a known history of diabetes mellitus, melanoma, Daly's esophagus, Parkinson tremors, cirrhosis of the liver, former smoker coronary artery disease. He had undergone cardiac catheterization on 03/23/2022 and was found to have calcified coronary arteries. Critical stenosis involving the proximal LAD and the first diagonal branch, severe stenosis in the first and second OM. Moderate to severe disease in the right PLV. He was recommended coronary artery bypass surgery. He was brought in today electively for the procedure. He received CABG 4 with a SANTA to the LAD, left radial artery to the first obtuse marginal, saphenous vein graft to first diagonal and a saphenous vein graft to the posterior lateral branch of the RCA. Litigation a left atrial appendage with Atricure clamp. 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 He is intubated on the mechanical ventilator with assist-control mode at the rate of 12, tidal volume 500, FiO2 50% and a PEEP of 5. Arterial blood gases on 100% FiO2 revealed a P O2 of 286, pCO2 43, pH 7.33. He has normal saline at 50 MLS per hour. Nitroglycerin drip at 5 mcg/m. Propofol is at 10 mcg/kg/m. Insulin drip at 3 units per hour. Pending amiodarone drip at 1 mg/m. Right IJ [place]-Javi catheter in place. His cardiac output is currently 6.2. Cardiac index 2.8. PA pressure 41/1. CVP 16. Core temperature of 95.5. Warming blanket is applied. Heart hugger in place. Dressing dry and intact. Left pleural and mediastinal chest tubes in place. White count 7.8. Hemoglobin 7.2. Platelets 104. INR 1.4. Sodium 142. Potassium 4.1. BUN 14. Creatinine 0.88. Glucose 117. Chest x-ray reveals tubes and lines in satisfactory position. Small bilateral effusions. No pneumothorax. Review of Systems ROS unobtainable: due to endotracheal tube Past Medical History Past Medical History: Asthma, Cancer, Chest Pain / Angina, Diabetes Mellitus, GERD/Reflux, Hearing Disorder / Deafness, Hyperlipidemia, Hypertension, Liver Disease, Osteoarthritis (OA), Thyroid Disorder Additional Past Medical History / Comment(s): HX MELANOMA LEFT EYELID, HX IRON IFUSIONS(Last 2017), DALY'S ESOPHAGUS, PARKINSONS, TINNITUS IN LEFT EAR, hx. DARK BLOODY STOOLS-last few months ago, FATTY LIVER-possible cirrhosis per pt- sees Tumma, LIMITED ROM RIGHT WRIST FROM SURGERY, hx Hyperthyroid. History of Any Multi-Drug Resistant Organisms: None Reported Past Surgical History: Appendectomy, Heart Catheterization, Hernia Repair, Orthopedic Surgery Additional Past Surgical History / Comment(s): COLONOSCOPY, MELANOMA LEFT EYELID WITH SKIN GRAFT, RIGHT INGUINAL HERNIA & UMBILICAL HERNIA REPAIRS, CATARACT RIGHT EYE, HIATAL HERNIA, RIGHT WRIST FUSION, left knee surgery. Past Anesthesia/Blood Transfusion Reactions: No Reported Reaction Past Psychological History: Anxiety, Depression Smoking Status: Former smoker Past Alcohol Use History: Occasional Additional Past Alcohol Use History / Comment(s): QUIT SMOKING ABOUT 1984, SMOKED < 1 PPD. SMOKED APPROX 20 YRS. Past Drug Use History: None Reported - Past Family History Sister(s) Family Medical History: Cancer Additional Family Medical History / Comment(s): Breast Cancer. Mother Family Medical History: Cancer, Hypertension Additional Family Medical History / Comment(s): COLON CANCER. Father Family Medical History: Coronary Artery Disease (CAD), Diabetes Mellitus, Myocardial Infarction ([place]) Additional Family Medical History / Comment(s): HEART PROBLEMS. Medications and Allergies Home Medications Medication Instructions Recorded Confirmed Type atenoloL [Tenormin] 25 mg PO HS 11/03/14 04/11/22 History Omeprazole [PriLOSEC] 20 mg PO BID 09/06/17 04/01/22 History Primidone [Mysoline] 250 mg PO BID 09/06/17 04/01/22 History Loperamide [Imodium] 2 mg PO QID PRN 03/30/21 04/01/22 History Albuterol Sulfate [Proair Hfa] 2 puff INHALATION QID PRN 04/21/21 04/01/22 History DULoxetine HCL 60 mg PO DAILY 04/21/21 04/01/22 History Pregabalin [Lyrica] 300 mg PO HS 04/21/21 04/01/22 History Aspirin 81 mg PO HS 03/22/22 04/01/22 History Insulin Aspart (For Pump) [NovoLOG 0.01 unit SQ-PUMP CONTINUOUS 03/22/22 04/11/22 History (For Pump)] Isosorbide Mononitrate [Isosorbide 30 mg PO HS 03/22/22 04/01/22 History Mononitrate ER] Nitroglycerin Sl Tabs [Nitrostat] 0.4 mg SUBLINGUAL Q5M PRN #25 tab 03/23/22 04/01/22 Rx Ascorbic Acid [Vitamin C] 500 mg PO DAILY 04/01/22 04/01/22 History Atorvastatin [Lipitor] 40 mg PO HS 04/01/22 04/01/22 History Budesonide/Glycopyr/Formoterol 1 puff INHALATION BID 04/01/22 04/01/22 History [Breztri Aerosphere Inhaler] Cholecalciferol [Vitamin D3 (25 25 mcg PO DAILY 04/01/22 04/01/22 History Mcg = 1000 Iu)] Allergies Allergy/AdvReac Type Severity Reaction Status Date / Time Penicillins Allergy Rash/Hives Verified 04/01/22 14:51 Physical Exam Vitals: Vital Signs Temp Pulse Pulse Resp BP BP Pulse Ox 04/11/22 14:15 95.5 F L 68 12 99 04/11/22 14:00 66 12 100 04/11/22 13:41 04/11/22 13:40 68 12 100 04/11/22 13:30 67 12 100 04/11/22 13:22 04/11/22 13:20 64 12 100 04/11/22 13:10 95.0 F L 62 04/11/22 05:55 97.6 F 69 20 136/84 137/75 97 FiO2 04/11/22 14:15 50 04/11/22 14:00 04/11/22 13:41 50 04/11/22 13:40 04/11/22 13:30 04/11/22 13:22 100 04/11/22 13:20 100 04/11/22 13:10 04/11/22 05:55 Intake and Output 04/10/22 04/11/22 04/11/22 22:59 06:59 14:59 Intake Total 100 353 Output Total 1210 Balance 100 -857 Intake: IV 100 53 .9NS Cardiac Output 40 0.9NS Pressure Bag 9 Intake, IV Titration 300 Amount Albumin Human 5% 250 ml @ 250 0 mls/hr IVPB .[facility] Rx#:[id number] Sodium Chloride 0.9% 1, 50 000 ml @ 50 mls/hr IV . [facility] Rx#:[id number] Output: Chest Tube Drainage 160 Mediastinal and Left 160 Pleual Urine 750 Estimated Blood Loss 300 Other: Weight 108.9 kg ABP, PAP, CO, CI - Last 8 Hours Arterial Blood Pressure 120/47 Arterial Blood Pressure 114/46 Arterial Blood Pressure 109/45 Arterial Blood Pressure 108/41 Arterial Blood Pressure 96/43 Pulmonary Artery Pressure 41/19 Pulmonary Artery Pressure 41/21 Pulmonary Artery Pressure 36/19 Pulmonary Artery Pressure 34/17 Pulmonary Artery Pressure 35/19 Cardiac Output 6.2 Cardiac Output 5.3 Cardiac Index 2.8 Cardiac Index 2.4 GENERAL EXAM: Intubated, sedated 77-year-old gentleman, on the mechanical ventilator, comfortable in no apparent distress. HEAD: Normocephalic. EYES: Normal reaction of pupils, equal size. NOSE: Clear with pink turbinates. THROAT: No erythema or exudates. NECK: No masses, no JVD. CHEST: Sternal dressing dry and intact. Heart Hugger in place. Mediastinal and left pleural chest tubes in place. LUNGS: Equal air entry with faint crackles in the posterior bases. CVS: S1 and S2 normal with no audible murmur, regular rhythm. ABDOMEN: No hepatosplenomegaly, normal bowel sounds, no guarding or rigidity. SPINE: No scoliosis or deformity SKIN: No rashes CENTRAL NERVOUS SYSTEM: No focal deficits, tone is normal in all 4 extremities. EXTREMITIES: Radial artery dressing intact. Bilateral Lane wraps to lower extremities. There is no peripheral edema. No clubbing, no cyanosis. Peripheral pulses are intact. Results - Laboratory Findings CBC and BMP: 04/11/22 13:15 04/11/22 13:15 ABG ABG pH 7.33 (7.35-7.45) L 04/11/22 13:32 ABG pCO2 43 mmHg (35-45) 04/11/22 13:32 ABG pO2 286 mmHg (83-108) H 04/11/22 13:32 ABG O2 Saturation 100.0 % (94-97) H 04/11/22 13:32 PT/INR, D-dimer PT 14.6 sec (9.0-12.0) H 04/11/22 13:15 INR 1.4 (<1.2) H 04/11/22 13:15 Abnormal lab findings: Abnormal Labs 04/01/22 04/11/22 04/11/22 11:05 06:18 08:34 RBC Hgb Hct RDW Plt Count PT INR APTT ABG pH ABG pO2 >420 H ABG Total CO2 25 H ABG O2 Saturation 100.0 H ABG Hematocrit 28 L ABG Potassium 4.7 H ABG Ionized Calcium ABG Glucose 176 H ABG Lactic Acid 2.5 H* Hemoglobin 9.1 L Chloride Glucose POC Glucose (mg/dL) 167 H Calcium Magnesium Total Protein Albumin Arterial Blood Potassium 4.7 H Arterial Blood Glucose 176 H Crossmatch See Detail 04/11/22 04/11/22 04/11/22 08:37 10:15 11:09 RBC Hgb Hct RDW Plt Count PT INR APTT ABG pH ABG pO2 >420 H >420 H >420 H ABG Total CO2 ABG O2 Saturation 100.0 H 100.0 H 100.0 H ABG Hematocrit 28 L 26 L 25 L ABG Potassium 4.7 H 4.8 H ABG Ionized Calcium 4.4 L 4.4 L ABG Glucose 176 H 171 H 162 H ABG Lactic Acid 2.5 H* 2.8 H* 3.6 H* Hemoglobin 9.1 L 8.6 L 8.3 L Chloride Glucose POC Glucose (mg/dL) Calcium Magnesium Total Protein Albumin Arterial Blood Potassium 4.7 H 4.8 H Arterial Blood Glucose 176 H 171 H 162 H Crossmatch 04/11/22 04/11/22 04/11/22 12:05 12:25 13:15 RBC 2.82 L Hgb 7.2 L D Hct 23.0 L RDW 16.1 H Plt Count 104 L PT INR APTT ABG pH ABG pO2 >420 H 356 H ABG Total CO2 ABG O2 Saturation 100.0 H 100.0 H ABG Hematocrit 23 L 23 L ABG Potassium ABG Ionized Calcium 4.4 L 4.3 L ABG Glucose 146 H 138 H ABG Lactic Acid 3.5 H* 3.6 H* Hemoglobin 7.6 L 7.4 L Chloride Glucose POC Glucose (mg/dL) Calcium Magnesium Total Protein Albumin Arterial Blood Potassium Arterial Blood Glucose 146 H 138 H Crossmatch 04/11/22 04/11/22 04/11/22 13:15 13:15 13:17 RBC Hgb Hct RDW Plt Count PT 14.6 H INR 1.4 H APTT 35.4 H ABG pH ABG pO2 ABG Total CO2 ABG O2 Saturation ABG Hematocrit ABG Potassium ABG Ionized Calcium ABG Glucose ABG Lactic Acid Hemoglobin Chloride 113 H Glucose 117 H POC Glucose (mg/dL) 127 H Calcium 7.0 L Magnesium 1.5 L Total Protein 4.3 L Albumin 2.8 L Arterial Blood Potassium Arterial Blood Glucose Crossmatch 04/11/22 13:32 RBC Hgb Hct RDW Plt Count PT INR APTT ABG pH 7.33 L ABG pO2 286 H ABG Total CO2 ABG O2 Saturation 100.0 H ABG Hematocrit ABG Potassium ABG Ionized Calcium ABG Glucose ABG Lactic Acid Hemoglobin Chloride Glucose POC Glucose (mg/dL) Calcium Magnesium Total Protein Albumin Arterial Blood Potassium Arterial Blood Glucose Crossmatch - Diagnostic Findings Chest x-ray: image reviewed Assessment and Plan Assessment: Coronary artery disease status post coronary artery bypass grafting 4 with a SANTA to the LAD, left radial artery graft to the first obtuse marginal, saphenous vein graft to the first diagonal, saphenous vein graft to the posterior lateral branch of the RCA. Left atrial appendage clip. Postoperative day #0. Hypoxemic respiratory failure secondary to above, expected outcome of surgery, currently on the mechanical ventilator Anemia, expected outcome of surgery, current hemoglobin 7.2 Hypertension, history of Hyperlipidemia History of melanoma of the left eyelid, resected Daly's esophagus Parkinson tremors Former smoker, quit 30 years ago Chronic obstructive pulmonary disease Plan: The patient was seen and evaluated Chest x-ray, ABGs, labs and medications reviewed Decrease the FiO2 to 50% Plan for early extubation protocol as tolerated We'll continue to monitor closely and make further recommendations based on his clinical status I have personally seen and examined the patient, performed the documentation and the assessment and plan as written. Number of minutes spent on the visit: 20.
[2022-04-11 15:03] LABS: Glucose,Whole Blood 109 mg/dL (70-110)
[2022-04-11 15:04] LABS: Ionized Calcium 4.7 mg/dL (4.5-5.3)
[2022-04-11] MEDS ORDERED: IPRATROPIUM-ALBUTEROL 3 ML NEB INHALATION SCH (16:00)
[2022-04-11 16:07] LABS: Anisocytosis Slight; Basophils % (A) 0 %; Eosinophils # (A) 0.2 k/uL (0-0.7); Eosinophils % (A) 2 %; HCT 26.6 % (39.0-53.0); HGB 8.1 gm/dL (13.0-17.5); Hypochromasia Marked; Lymphocytes # (A) 1.4 k/uL (1.0-4.8); Lymphocytes % (A) 15 %; MCHC 30.5 g/dL (31.0-37.0); MCV 81.9 fL (80.0-100.0); Mean Platelet Volume 8.5; Monocytes # (A) 0.3 k/uL (0-1.0); Monocytes % (A) 3 %; Neutrophils # (A) 7.4 k/uL (1.3-7.7); Neutrophils % (A) 79 %; Platelet Count 128 k/uL (150-450); RBC 3.25 m/uL (4.30-5.90); RDW 16.2 % (11.5-15.5); WBC 9.4 k/uL (3.8-10.6)
[2022-04-11] MEDS: IPRATROPIUM 0.5 MG/2.5 ML NEBU INHALATION SCH ×2 (16:08→20:30)
[2022-04-11 16:11] LABS: Glucose,Whole Blood 188 mg/dL (70-110)
[2022-04-11] MEDS: HEPARIN SODIUM,PORCINE/PF 5,000 UNIT/0.5 ML SYRINGE SQ SCH (16:28)
[2022-04-11 17:04] LABS: Glucose,Whole Blood 189 mg/dL (70-110)
[2022-04-11 17:40] LABS: ABG HCO3 22 mmol/L (21-25); ABG Oxygen Saturation 98.1 % (94-97); ABG PCO2 50 mmHg (35-45); ABG PH 7.26 (7.35-7.45); ABG PO2 103 mmHg (83-108); ABG TCO2 24 mmol/L (19-24); Allen Test Performed? Yes
[2022-04-11] MEDS: ACETAMINOPHEN IV (For NPO) 1,000 MG in EMPTY BAG 1 BAG IVPB SCH ×2 (17:43→23:21)
[2022-04-11 18:09] LABS: Glucose,Whole Blood 167 mg/dL (70-110)
[2022-04-11 18:51] LABS: Glucose,Whole Blood 166 mg/dL (70-110)
[2022-04-11 19:02] LABS: Anisocytosis Slight; Basophils % (A) 0 %; Eosinophils # (A) 0.2 k/uL (0-0.7); Eosinophils % (A) 1 %; HCT 26.4 % (39.0-53.0); HGB 8.1 gm/dL (13.0-17.5); Hypochromasia Marked; Lymphocytes # (A) 0.5 k/uL (1.0-4.8); Lymphocytes % (A) 4 %; MCH 25.1 pg (25.0-35.0); MCHC 30.6 g/dL (31.0-37.0); Monocytes # (A) 0.6 k/uL (0-1.0); Monocytes % (A) 5 %; Neutrophils # (A) 10.6 k/uL (1.3-7.7); Neutrophils % (A) 89 %; Platelet Count 138 k/uL (150-450); RBC 3.22 m/uL (4.30-5.90); RDW 16.2 % (11.5-15.5); WBC 11.9 k/uL (3.8-10.6)
[2022-04-11] MEDS: AMIODARONE 450 MG in DEXTROSE 5% IN WATER 250 ML IV SCH ×2 (20:09)
[2022-04-11 20:10] LABS: Glucose,Whole Blood 149 mg/dL (70-110)
[2022-04-11] MEDS: IPRATROPIUM-ALBUTEROL 3 ML NEB INHALATION SCH (20:30)
[2022-04-11] MEDS: SYMBICORT 160-4.5 MCG INHALER INHALATION SCH (20:30)
[2022-04-11] MEDS: PRIMIDONE 50 MG TAB PO SCH (20:46)
[2022-04-11] MEDS: ATORVASTATIN 40 MG TAB PO SCH (20:47)
[2022-04-11] MEDS ORDERED: NON FORMULARY DRUG (Budesonide/Glycopyr/Formoterol [Breztri Aerosphere Inhaler] 10.7 GM Gm INHALATION SCH (21:00)
[2022-04-11] MEDS ORDERED: ASPIRIN 325 MG TAB PO SCH (21:00)
[2022-04-11 21:34] LABS: Glucose,Whole Blood 129 mg/dL (70-110)
[2022-04-11 22:19] LABS: Glucose,Whole Blood 132 mg/dL (70-110)
[2022-04-11 23:14] LABS: Glucose,Whole Blood 127 mg/dL (70-110)
[2022-04-12 00:02] LABS: Glucose,Whole Blood 136 mg/dL (70-110)
[2022-04-12] MEDS: HEPARIN SODIUM,PORCINE/PF 5,000 UNIT/0.5 ML SYRINGE SQ SCH ×3 (00:06→16:58)
[2022-04-12] MEDS ORDERED: HYDROcodone/APAP 5-325MG 1 EACH TAB PO PRN ×2 (00:39)
[2022-04-12 01:10] LABS: Glucose,Whole Blood 134 mg/dL (70-110)
[2022-04-12] MEDS: DOPamine DRIP 800 MG in DEXTROSE/WATER 1 250ML.BAG IV SCH (01:20)
[2022-04-12 02:13] LABS: ABG Base Excess -7.2 mmol/L; ABG HCO3 20 mmol/L (21-25); ABG Oxygen Saturation 93.4 % (94-97); ABG PCO2 44 mmHg (35-45); ABG PH 7.26 (7.35-7.45); ABG PO2 69 mmHg (83-108); ABG TCO2 21 mmol/L (19-24); Allen Test Performed? Yes
[2022-04-12 02:15] LABS: Glucose,Whole Blood 143 mg/dL (70-110)
[2022-04-12] MEDS ORDERED: SODIUM BICARB 8.4% 50 ML SYR (1 MEQ/ML) IV STA ×2 (02:21→02:33)
--- NOTE | 2022-04-12 02:30 | XR ---
EXAM: XR Chest, 1 View CLINICAL HISTORY: ITS.REASON XR Reason: Post Operative Cardiac Surgery TECHNIQUE: Frontal view of the chest. COMPARISON: CXR 04/11/22 at 1321 hrs. FINDINGS: Patient is status post midline sternotomy and cardiac surgery. The left atrial appendage clip is noted. Surgical clips are present in the mediastinum. Heart size is stable. Pulmonary vasculature is congested. A left chest tube is in place. There is no visible pneumothorax. There is persistent airspace opacity at the lateral left lung base. Small bilateral effusions are suggested. There is a right internal jugular approach [place]-Javi catheter with tip in stable position. A mediastinal drain is suggested. Skeletal structures are stable. IMPRESSION: 1. Endotracheal tube and enteric tube been removed. 2. Mediastinal drain, [place]-Javi catheter, and left chest tube remain in place. 3. Small effusions. No visible pneumothorax. 4. Persistent airspace disease lateral left lung base. 5. Pulmonary vascular congestion.
[2022-04-12] MEDS: ALBUMIN HUMAN 5% 250 ML in EMPTY BAG 1 BAG IVPB PRN ×6 (02:33→11:45)
[2022-04-12 02:39] LABS: Anisocytosis Slight; Basophils # (A) 0.1 k/uL (0-0.2); Basophils % (A) 0 %; Eosinophils % (A) 0 %; HCT 26.5 % (39.0-53.0); Hypochromasia Marked; Lymphocytes # (A) 0.8 k/uL (1.0-4.8); Lymphocytes % (A) 4 %; MCH 24.9 pg (25.0-35.0); MCHC 30.1 g/dL (31.0-37.0); MCV 82.9 fL (80.0-100.0); Mean Platelet Volume 9.5; Monocytes # (A) 0.9 k/uL (0-1.0); Monocytes % (A) 4 %; Neutrophils % (A) 91 %; Platelet Count 179 k/uL (150-450); RDW 16.2 % (11.5-15.5); WBC 20.9 k/uL (3.8-10.6)
[2022-04-12] MEDS ORDERED: NALOXONE 0.4 MG/ML 1 ML VIAL ONE (02:51)
[2022-04-12] MEDS ORDERED: NALOXONE 0.4 MG/ML 1 ML VIAL IVP ONE (02:59)
[2022-04-12 03:08] LABS: Glucose,Whole Blood 140 mg/dL (70-110)
[2022-04-12 03:19] LABS: VBG PH 7.4 (7.31-7.41)
[2022-04-12 03:28] LABS: Ionized Calcium 4.6 mg/dL (4.5-5.3)
[2022-04-12 03:37] LABS: Albumin 3.2 g/dL (3.5-5.0); Calcium 7.1 mg/dL (8.4-10.2); Magnesium 1.9 mg/dL (1.6-2.3); Potassium 5.3 mmol/L (3.5-5.1); Total Bilirubin 0.8 mg/dL (0.2-1.3)
[2022-04-12 04:27] LABS: Glucose,Whole Blood 142 mg/dL (70-110)
[2022-04-12] MEDS ORDERED: Magnesium Replacement Protocol 1 EACH MISC MISCELLANE PRN (04:49)
[2022-04-12 05:12] LABS: Glucose,Whole Blood 144 mg/dL (70-110)
[2022-04-12] MEDS: MAGNESIUM SULFATE-D5W PMX 1 GM in DEXTROSE/WATER 1 100ML.BAG IVPB SCH ×2 (05:18→06:39)
[2022-04-12 06:06] LABS: Glucose,Whole Blood 159 mg/dL (70-110)
[2022-04-12 07:09] LABS: Glucose,Whole Blood 157 mg/dL (70-110)
[2022-04-12] MEDS: SYMBICORT 160-4.5 MCG INHALER INHALATION SCH ×2 (07:27→20:26)
[2022-04-12] MEDS: IPRATROPIUM-ALBUTEROL 3 ML NEB INHALATION SCH ×4 (07:27→20:26)
[2022-04-12 08:15] LABS: Glucose,Whole Blood 150 mg/dL (70-110)
[2022-04-12] MEDS: ASCORBIC ACID 500 MG TAB PO SCH (08:25)
[2022-04-12] MEDS: METOPROLOL TARTRATE 12.5 MG TAB PO SCH ×2 (08:25→20:22)
[2022-04-12] MEDS: CHOLECALCIFEROL 25 MCG (1000 IU) TABLET PO SCH (08:25)
[2022-04-12] MEDS: DULoxetine HCL 60 MG CAPSULE.DR PO SCH (08:25)
[2022-04-12] MEDS: CLOPIDOGREL 75 MG TAB PO SCH (08:25)
[2022-04-12] MEDS: AMIODARONE 450 MG in DEXTROSE 5% IN WATER 250 ML IV SCH ×2 (08:26)
--- NOTE | 2022-04-12 08:34 | P.PN ---
Subjective Progress Note Date: 04/12/22 Principal diagnosis: Coronary artery disease. Previous medical history of hypertension, hyperlipidemia, insulin-dependent diabetes, previous tobacco dependence, mild COPD, asthma, liver cirrhosis, Leonard's esophagus, PAD, melanoma skin cancer, chronic iron deficiency anemia, essential tremors, depression, and family history of coronary artery disease POD #1 off-pump coronary artery bypass grafting 4 with left internal mammary artery to the left anterior descending artery, left radial artery graft to the first obtuse marginal artery, reverse saphenous vein graft to the first diagonal artery, reverse saphenous vein graft to the posterior lateral branch of the right coronary artery, ligation of the left atrial appendage with a 35 mm AtriCure clamp, endovascular vein harvest of bilateral greater saphenous vein and endovascular left radial artery harvest. Intraoperative transesophageal echocardiogram performed by anesthesia. Postoperative acute blood loss anemia, expected given hemodilution and preoperative anemia The patient was seen and examined this morning sitting up in a recliner on the intensive care unit in no acute distress. He was extubated last night at 17:54. Remains in sinus rhythm, blood pressure soft, currently on IV dopamine. Last night in the middle of the night the patient did have an episode of hypotension, lethargy, decreased urine output, acidosis, and hypoxia. He was placed on BiPAP and given IV fluids as well as Narcan and IV sodium bicarb. This morning he is alert and oriented and eating breakfast, off BiPAP on nasal cannula. Urine output still marginal, 1 L present in chest tube. IV Cardizem discontinued yesterday, IV nitro discontinued this morning. Right internal jugular Shelton/Cordis, right radial arterial line, mediastinal/left pleural chest tubes, right lower extremity HUMBERTO drain all remain. Labs and chest x-ray reviewed, case discussed with Dr. Dorman. Objective - Vital Signs Vital signs: Vital Signs Temp 98.6 F 04/11/22 16:15 Pulse 70 04/12/22 07:40 Resp 12 04/12/22 07:00 BP 91/67 04/12/22 07:00 Pulse Ox 94 L 04/12/22 07:27 FiO2 50 04/12/22 05:00 Intake & Output 04/11/22 04/12/22 04/12/22 18:59 06:59 18:59 Intake Total 1044.842 822.391 12.675 Output Total 1820 685 125 Balance -775.158 137.391 -112.325 Weight 113.8 kg Intake: IV 729 588 9 .9NS Cardiac Output 130 130 0.9NS Pressure Bag 45 108 9 ACETAMINOPHEN IV (For NPO 100 ) 1,000 mg In Empty Bag 1 bag @ 400 mls/hr IVPB Q6HR [facility] Rx#:[id number] Magnesium Sulfate-D5w Pmx 200 1 gm In Dextrose/Water 1 100ml.bag @ 100 mls/hr IVPB Q1H [facility] Rx#: [id number] Sodium Chloride 0.9% 1, 200 350 000 ml @ 50 mls/hr IV . Q20H [facility] Rx#:[id number] ceFAZolin 2 gm In Sodium 50 Chloride 0.9% 50 ml @ 100 mls/hr IVPB Q8HR [facility] Rx# :[id number] Intake, IV Titration 315.842 234.391 3.675 Amount ACETAMINOPHEN IV (For NPO 100 ) 1,000 mg In Empty Bag 1 bag @ 400 mls/hr IVPB Q6HR [facility] Rx#:[id number] Albumin Human 5% 250 ml @ 250 0 mls/hr IVPB [facility] Rx#:[id number] Clevidipine Butyrate 25 3.667 mg In Empty Bag 1 bag @ 1 MG/HR 2 mls/hr IV .Q24H [facility] Rx#:[id number] Insulin Regular 100 unit 12.175 34.391 3.675 In Sodium Chloride 0.9% 100 ml @ Per Protocol IV .Q0M [facility] Rx#:[id number] Sodium Chloride 0.9% 1, 50 000 ml @ 50 mls/hr IV . Q20H [facility] Rx#:[id number] ceFAZolin 2 gm In Sodium 100 Chloride 0.9% 50 ml @ 100 mls/hr IVPB Q8HR [facility] Rx# :[id number] Output: Chest Tube Drainage 555 440 100 Mediastinal and Left 555 440 100 Pleual Drainage 60 Right Calf 60 Urine 965 185 25 Estimated Blood Loss 300 Other: Voiding Method Indwelling Catheter Indwelling Catheter ABP, PAP, CO, CI - Last Documented Arterial Blood Pressure 95/46 Pulmonary Artery Pressure 28/7 Cardiac Output 5.9 Cardiac Index 2.7 - Exam CONSTITUTIONAL: Appears comfortable, cooperative, no acute distress RESPIRATORY: Lungs sounds diminished bilaterally. Respirations even, nonlabored. Currently on room air with oxygen saturation 100%. Able to achieve 1000 mL on incentive spirometry. Strong cough. CARDIOVASCULAR: S1, S2 present. Regular rate and rhythm, sinus rhythm on telemetry. Sternum stable. Palpable peripheral pulses bilaterally. Generalized edema present, upper extremities greater than lower extremities. No calf pain or tenderness noted. Heart hugger in place with patient occasionally demonstrating appropriate use. Antiembolism stockings, SCDs present. GASTROINTESTINAL: Abdomen soft, nontender, nondistended. Hypoactive bowel sounds present 4 quadrants. Tolerating minimal clear liquid diet. Positive flatus GENITOURINARY: Woods present draining clear, yellow urine. Output overnight 0- 20 mL per hour INTEGUMENTARY: Skin is warm and dry. Anterior chest incision well approximated and covered with dry intact dressing. Bilateral lower extremity EVH sites well approximated without redness, 20 mL serous drainage from right HUMBERTO drain. NEUROLOGIC: Cranial nerves II through XII intact MUSKULOSKELETAL: Able to move all extremities, strength equal bilaterally PSYCHIATRIC: Alert and oriented to person place and time, appropriate affect, intact judgment and insight INVASIVE LINES AND TUBES: Mediastinal/left pleural chest tubes present and connected to wall suction, no air leaks present, 340 mL serosanguineous drainage overnight, 1000 mL since surgery. Right internal jugular Shelton/Cordis, right r adial arterial line present. Last CO/CI 5.5/2.5, PA 32/10, CVP 14. - Allied health notes Allied health notes reviewed: nursing - Labs CBC & Chem 7: 04/12/22 02:30 04/12/22 02:30 Labs: Abnormal Lab Results - Last 24 Hours (Table) 04/01/22 04/11/22 04/11/22 Range/Units 11:05 08:34 08:37 WBC (3.8-10.6) k/uL RBC (4.30-5.90) m/uL Hgb (13.0-17.5) gm/dL Hct (39.0-53.0) % MCH (25.0-35.0) pg MCHC (31.0-37.0) g/dL RDW (11.5-15.5) % Plt Count (150-450) k/uL Neutrophils # (1.3-7.7) k/uL Lymphocytes # (1.0-4.8) k/uL PT (9.0-12.0) sec INR (<1.2) APTT (22.0-30.0) sec ABG pH (7.35-7.45) ABG pCO2 (35-45) mmHg ABG pO2 >420 H >420 H (83-108) mmHg ABG HCO3 (21-25) mmol/L ABG Total CO2 25 H (19-24) mmol/L ABG O2 Saturation 100.0 H 100.0 H (94-97) % ABG Hematocrit 28 L 28 L (34.0-46.0) % ABG Potassium 4.7 H 4.7 H (3.4-4.5) mmol/L ABG Ionized Calcium (4.5-5.3) mg/dL ABG Glucose 176 H 176 H (75-99) mg/dL ABG Lactic Acid 2.5 H* 2.5 H* (0.5-1.6) mmol/L VBG pCO2 (37-51) mmHg VBG HCO3 (24-28) mmol/L Hemoglobin 9.1 L 9.1 L (13.0-17.5) gm/dL Potassium (3.5-5.1) mmol/L Chloride (98-107) mmol/L Carbon Dioxide (22-30) mmol/L Creatinine (0.66-1.25) mg/dL Glucose (74-99) mg/dL POC Glucose (mg/dL) (70-110) mg/dL Calcium (8.4-10.2) mg/dL Magnesium (1.6-2.3) mg/dL Total Protein (6.3-8.2) g/dL Albumin (3.5-5.0) g/dL Arterial Blood Potassium 4.7 H 4.7 H (3.4-4.5) mmol/L Arterial Blood Glucose 176 H 176 H (75-99) mg/dL Crossmatch See Detail 04/11/22 04/11/22 04/11/22 Range/Units 10:15 11:09 12:05 WBC (3.8-10.6) k/uL RBC (4.30-5.90) m/uL Hgb (13.0-17.5) gm/dL Hct (39.0-53.0) % MCH (25.0-35.0) pg MCHC (31.0-37.0) g/dL RDW (11.5-15.5) % Plt Count (150-450) k/uL Neutrophils # (1.3-7.7) k/uL Lymphocytes # (1.0-4.8) k/uL PT (9.0-12.0) sec INR (<1.2) APTT (22.0-30.0) sec ABG pH (7.35-7.45) ABG pCO2 (35-45) mmHg ABG pO2 >420 H >420 H >420 H (83-108) mmHg ABG HCO3 (21-25) mmol/L ABG Total CO2 (19-24) mmol/L ABG O2 Saturation 100.0 H 100.0 H 100.0 H (94-97) % ABG Hematocrit 26 L 25 L 23 L (34.0-46.0) % ABG Potassium 4.8 H (3.4-4.5) mmol/L ABG Ionized Calcium 4.4 L 4.4 L 4.4 L (4.5-5.3) mg/dL ABG Glucose 171 H 162 H 146 H (75-99) mg/dL ABG Lactic Acid 2.8 H* 3.6 H* 3.5 H* (0.5-1.6) mmol/L VBG pCO2 (37-51) mmHg VBG HCO3 (24-28) mmol/L Hemoglobin 8.6 L 8.3 L 7.6 L (13.0-17.5) gm/dL Potassium (3.5-5.1) mmol/L Chloride (98-107) mmol/L Carbon Dioxide (22-30) mmol/L Creatinine (0.66-1.25) mg/dL Glucose (74-99) mg/dL POC Glucose (mg/dL) (70-110) mg/dL Calcium (8.4-10.2) mg/dL Magnesium (1.6-2.3) mg/dL Total Protein (6.3-8.2) g/dL Albumin (3.5-5.0) g/dL Arterial Blood Potassium 4.8 H (3.4-4.5) mmol/L Arterial Blood Glucose 171 H 162 H 146 H (75-99) mg/dL Crossmatch 04/11/22 04/11/22 04/11/22 Range/Units 12:25 13:15 13:15 WBC (3.8-10.6) k/uL RBC 2.82 L (4.30-5.90) m/uL Hgb 7.2 L D (13.0-17.5) gm/dL Hct 23.0 L (39.0-53.0) % MCH (25.0-35.0) pg MCHC (31.0-37.0) g/dL RDW 16.1 H (11.5-15.5) % Plt Count 104 L (150-450) k/uL Neutrophils # (1.3-7.7) k/uL Lymphocytes # (1.0-4.8) k/uL PT 14.6 H (9.0-12.0) sec INR 1.4 H (<1.2) APTT 35.4 H (22.0-30.0) sec ABG pH (7.35-7.45) ABG pCO2 (35-45) mmHg ABG pO2 356 H (83-108) mmHg ABG HCO3 (21-25) mmol/L ABG Total CO2 (19-24) mmol/L ABG O2 Saturation 100.0 H (94-97) % ABG Hematocrit 23 L (34.0-46.0) % ABG Potassium (3.4-4.5) mmol/L ABG Ionized Calcium 4.3 L (4.5-5.3) mg/dL ABG Glucose 138 H (75-99) mg/dL ABG Lactic Acid 3.6 H* (0.5-1.6) mmol/L VBG pCO2 (37-51) mmHg VBG HCO3 (24-28) mmol/L Hemoglobin 7.4 L (13.0-17.5) gm/dL Potassium (3.5-5.1) mmol/L Chloride (98-107) mmol/L Carbon Dioxide (22-30) mmol/L Creatinine (0.66-1.25) mg/dL Glucose (74-99) mg/dL POC Glucose (mg/dL) (70-110) mg/dL Calcium (8.4-10.2) mg/dL Magnesium (1.6-2.3) mg/dL Total Protein (6.3-8.2) g/dL Albumin (3.5-5.0) g/dL Arterial Blood Potassium (3.4-4.5) mmol/L Arterial Blood Glucose 138 H (75-99) mg/dL Crossmatch 04/11/22 04/11/22 04/11/22 Range/Units 13:15 13:17 13:32 WBC (3.8-10.6) k/uL RBC (4.30-5.90) m/uL Hgb (13.0-17.5) gm/dL Hct (39.0-53.0) % MCH (25.0-35.0) pg MCHC (31.0-37.0) g/dL RDW (11.5-15.5) % Plt Count (150-450) k/uL Neutrophils # (1.3-7.7) k/uL Lymphocytes # (1.0-4.8) k/uL PT (9.0-12.0) sec INR (<1.2) APTT (22.0-30.0) sec ABG pH 7.33 L (7.35-7.45) ABG pCO2 (35-45) mmHg ABG pO2 286 H (83-108) mmHg ABG HCO3 (21-25) mmol/L ABG Total CO2 (19-24) mmol/L ABG O2 Saturation 100.0 H (94-97) % ABG Hematocrit (34.0-46.0) % ABG Potassium (3.4-4.5) mmol/L ABG Ionized Calcium (4.5-5.3) mg/dL ABG Glucose (75-99) mg/dL ABG Lactic Acid (0.5-1.6) mmol/L VBG pCO2 (37-51) mmHg VBG HCO3 (24-28) mmol/L Hemoglobin (13.0-17.5) gm/dL Potassium (3.5-5.1) mmol/L Chloride 113 H (98-107) mmol/L Carbon Dioxide (22-30) mmol/L Creatinine (0.66-1.25) mg/dL Glucose 117 H (74-99) mg/dL POC Glucose (mg/dL) 127 H (70-110) mg/dL Calcium 7.0 L (8.4-10.2) mg/dL Magnesium 1.5 L (1.6-2.3) mg/dL Total Protein 4.3 L (6.3-8.2) g/dL Albumin 2.8 L (3.5-5.0) g/dL Arterial Blood Potassium (3.4-4.5) mmol/L Arterial Blood Glucose (75-99) mg/dL Crossmatch 04/11/22 04/11/22 04/11/22 Range/Units 15:45 16:09 17:03 WBC (3.8-10.6) k/uL RBC 3.25 L (4.30-5.90) m/uL Hgb 8.1 L (13.0-17.5) gm/dL Hct 26.6 L (39.0-53.0) % MCH (25.0-35.0) pg MCHC 30.5 L (31.0-37.0) g/dL RDW 16.2 H (11.5-15.5) % Plt Count 128 L (150-450) k/uL Neutrophils # (1.3-7.7) k/uL Lymphocytes # (1.0-4.8) k/uL PT (9.0-12.0) sec INR (<1.2) APTT (22.0-30.0) sec ABG pH (7.35-7.45) ABG pCO2 (35-45) mmHg ABG pO2 (83-108) mmHg ABG HCO3 (21-25) mmol/L ABG Total CO2 (19-24) mmol/L ABG O2 Saturation (94-97) % ABG Hematocrit (34.0-46.0) % ABG Potassium (3.4-4.5) mmol/L ABG Ionized Calcium (4.5-5.3) mg/dL ABG Glucose (75-99) mg/dL ABG Lactic Acid (0.5-1.6) mmol/L VBG pCO2 (37-51) mmHg VBG HCO3 (24-28) mmol/L Hemoglobin (13.0-17.5) gm/dL Potassium (3.5-5.1) mmol/L Chloride (98-107) mmol/L Carbon Dioxide (22-30) mmol/L Creatinine (0.66-1.25) mg/dL Glucose (74-99) mg/dL POC Glucose (mg/dL) 188 H 189 H (70-110) mg/dL Calcium (8.4-10.2) mg/dL Magnesium (1.6-2.3) mg/dL Total Protein (6.3-8.2) g/dL Albumin (3.5-5.0) g/dL Arterial Blood Potassium (3.4-4.5) mmol/L Arterial Blood Glucose (75-99) mg/dL Crossmatch 04/11/22 04/11/22 04/11/22 Range/Units 17:38 18:07 18:49 WBC (3.8-10.6) k/uL RBC (4.30-5.90) m/uL Hgb (13.0-17.5) gm/dL Hct (39.0-53.0) % MCH (25.0-35.0) pg MCHC (31.0-37.0) g/dL RDW (11.5-15.5) % Plt Count (150-450) k/uL Neutrophils # (1.3-7.7) k/uL Lymphocytes # (1.0-4.8) k/uL PT (9.0-12.0) sec INR (<1.2) APTT (22.0-30.0) sec ABG pH 7.26 L (7.35-7.45) ABG pCO2 50 H (35-45) mmHg ABG pO2 (83-108) mmHg ABG HCO3 (21-25) mmol/L ABG Total CO2 (19-24) mmol/L ABG O2 Saturation 98.1 H (94-97) % ABG Hematocrit (34.0-46.0) % ABG Potassium (3.4-4.5) mmol/L ABG Ionized Calcium (4.5-5.3) mg/dL ABG Glucose (75-99) mg/dL ABG Lactic Acid (0.5-1.6) mmol/L VBG pCO2 (37-51) mmHg VBG HCO3 (24-28) mmol/L Hemoglobin (13.0-17.5) gm/dL Potassium (3.5-5.1) mmol/L Chloride (98-107) mmol/L Carbon Dioxide (22-30) mmol/L Creatinine (0.66-1.25) mg/dL Glucose (74-99) mg/dL POC Glucose (mg/dL) 167 H 166 H (70-110) mg/dL Calcium (8.4-10.2) mg/dL Magnesium (1.6-2.3) mg/dL Total Protein (6.3-8.2) g/dL Albumin (3.5-5.0) g/dL Arterial Blood Potassium (3.4-4.5) mmol/L Arterial Blood Glucose (75-99) mg/dL Crossmatch 04/11/22 04/11/22 04/11/22 Range/Units 18:49 20:03 21:28 WBC 11.9 H (3.8-10.6) k/uL RBC 3.22 L (4.30-5.90) m/uL Hgb 8.1 L (13.0-17.5) gm/dL Hct 26.4 L (39.0-53.0) % MCH (25.0-35.0) pg MCHC 30.6 L (31.0-37.0) g/dL RDW 16.2 H (11.5-15.5) % Plt Count 138 L (150-450) k/uL Neutrophils # 10.6 H (1.3-7.7) k/uL Lymphocytes # 0.5 L (1.0-4.8) k/uL PT (9.0-12.0) sec INR (<1.2) APTT (22.0-30.0) sec ABG pH (7.35-7.45) ABG pCO2 (35-45) mmHg ABG pO2 (83-108) mmHg ABG HCO3 (21-25) mmol/L ABG Total CO2 (19-24) mmol/L ABG O2 Saturation (94-97) % ABG Hematocrit (34.0-46.0) % ABG Potassium (3.4-4.5) mmol/L ABG Ionized Calcium (4.5-5.3) mg/dL ABG Glucose (75-99) mg/dL ABG Lactic Acid (0.5-1.6) mmol/L VBG pCO2 (37-51) mmHg VBG HCO3 (24-28) mmol/L Hemoglobin (13.0-17.5) gm/dL Potassium (3.5-5.1) mmol/L Chloride (98-107) mmol/L Carbon Dioxide (22-30) mmol/L Creatinine (0.66-1.25) mg/dL Glucose (74-99) mg/dL POC Glucose (mg/dL) 149 H 129 H (70-110) mg/dL Calcium (8.4-10.2) mg/dL Magnesium (1.6-2.3) mg/dL Total Protein (6.3-8.2) g/dL Albumin (3.5-5.0) g/dL Arterial Blood Potassium (3.4-4.5) mmol/L Arterial Blood Glucose (75-99) mg/dL Crossmatch 04/11/22 04/11/22 04/12/22 Range/Units 22:17 23:12 00:01 WBC (3.8-10.6) k/uL RBC (4.30-5.90) m/uL Hgb (13.0-17.5) gm/dL Hct (39.0-53.0) % MCH (25.0-35.0) pg MCHC (31.0-37.0) g/dL RDW (11.5-15.5) % Plt Count (150-450) k/uL Neutrophils # (1.3-7.7) k/uL Lymphocytes # (1.0-4.8) k/uL PT (9.0-12.0) sec INR (<1.2) APTT (22.0-30.0) sec ABG pH (7.35-7.45) ABG pCO2 (35-45) mmHg ABG pO2 (83-108) mmHg ABG HCO3 (21-25) mmol/L ABG Total CO2 (19-24) mmol/L ABG O2 Saturation (94-97) % ABG Hematocrit (34.0-46.0) % ABG Potassium (3.4-4.5) mmol/L ABG Ionized Calcium (4.5-5.3) mg/dL ABG Glucose (75-99) mg/dL ABG Lactic Acid (0.5-1.6) mmol/L VBG pCO2 (37-51) mmHg VBG HCO3 (24-28) mmol/L Hemoglobin (13.0-17.5) gm/dL Potassium (3.5-5.1) mmol/L Chloride (98-107) mmol/L Carbon Dioxide (22-30) mmol/L Creatinine (0.66-1.25) mg/dL Glucose (74-99) mg/dL POC Glucose (mg/dL) 132 H 127 H 136 H (70-110) mg/dL Calcium (8.4-10.2) mg/dL Magnesium (1.6-2.3) mg/dL Total Protein (6.3-8.2) g/dL Albumin (3.5-5.0) g/dL Arterial Blood Potassium (3.4-4.5) mmol/L Arterial Blood Glucose (75-99) mg/dL Crossmatch 04/12/22 04/12/22 04/12/22 Range/Units 01:09 02:10 02:14 WBC (3.8-10.6) k/uL RBC (4.30-5.90) m/uL Hgb (13.0-17.5) gm/dL Hct (39.0-53.0) % MCH (25.0-35.0) pg MCHC (31.0-37.0) g/dL RDW (11.5-15.5) % Plt Count (150-450) k/uL Neutrophils # (1.3-7.7) k/uL Lymphocytes # (1.0-4.8) k/uL PT (9.0-12.0) sec INR (<1.2) APTT (22.0-30.0) sec ABG pH 7.26 L (7.35-7.45) ABG pCO2 (35-45) mmHg ABG pO2 69 L (83-108) mmHg ABG HCO3 20 L (21-25) mmol/L ABG Total CO2 (19-24) mmol/L ABG O2 Saturation 93.4 L (94-97) % ABG Hematocrit (34.0-46.0) % ABG Potassium (3.4-4.5) mmol/L ABG Ionized Calcium (4.5-5.3) mg/dL ABG Glucose (75-99) mg/dL ABG Lactic Acid (0.5-1.6) mmol/L VBG pCO2 (37-51) mmHg VBG HCO3 (24-28) mmol/L Hemoglobin (13.0-17.5) gm/dL Potassium (3.5-5.1) mmol/L Chloride (98-107) mmol/L Carbon Dioxide (22-30) mmol/L Creatinine (0.66-1.25) mg/dL Glucose (74-99) mg/dL POC Glucose (mg/dL) 134 H 143 H (70-110) mg/dL Calcium (8.4-10.2) mg/dL Magnesium (1.6-2.3) mg/dL Total Protein (6.3-8.2) g/dL Albumin (3.5-5.0) g/dL Arterial Blood Potassium (3.4-4.5) mmol/L Arterial Blood Glucose (75-99) mg/dL Crossmatch 04/12/22 04/12/22 04/12/22 Range/Units 02:30 02:30 03:07 WBC 20.9 H (3.8-10.6) k/uL RBC 3.20 L (4.30-5.90) m/uL Hgb 8.0 L (13.0-17.5) gm/dL Hct 26.5 L (39.0-53.0) % MCH 24.9 L (25.0-35.0) pg MCHC 30.1 L (31.0-37.0) g/dL RDW 16.2 H (11.5-15.5) % Plt Count (150-450) k/uL Neutrophils # 19.0 H (1.3-7.7) k/uL Lymphocytes # 0.8 L (1.0-4.8) k/uL PT (9.0-12.0) sec INR (<1.2) APTT (22.0-30.0) sec ABG pH (7.35-7.45) ABG pCO2 (35-45) mmHg ABG pO2 (83-108) mmHg ABG HCO3 (21-25) mmol/L ABG Total CO2 (19-24) mmol/L ABG O2 Saturation (94-97) % ABG Hematocrit (34.0-46.0) % ABG Potassium (3.4-4.5) mmol/L ABG Ionized Calcium (4.5-5.3) mg/dL ABG Glucose (75-99) mg/dL ABG Lactic Acid (0.5-1.6) mmol/L VBG pCO2 (37-51) mmHg VBG HCO3 (24-28) mmol/L Hemoglobin (13.0-17.5) gm/dL Potassium 5.3 H (3.5-5.1) mmol/L Chloride 113 H (98-107) mmol/L Carbon Dioxide 19 L (22-30) mmol/L Creatinine 1.37 H (0.66-1.25) mg/dL Glucose 135 H (74-99) mg/dL POC Glucose (mg/dL) 140 H (70-110) mg/dL Calcium 7.1 L (8.4-10.2) mg/dL Magnesium (1.6-2.3) mg/dL Total Protein 5.0 L (6.3-8.2) g/dL Albumin 3.2 L (3.5-5.0) g/dL Arterial Blood Potassium (3.4-4.5) mmol/L Arterial Blood Glucose (75-99) mg/dL Crossmatch 04/12/22 04/12/22 04/12/22 Range/Units 03:10 04:25 05:10 WBC (3.8-10.6) k/uL RBC (4.30-5.90) m/uL Hgb (13.0-17.5) gm/dL Hct (39.0-53.0) % MCH (25.0-35.0) pg MCHC (31.0-37.0) g/dL RDW (11.5-15.5) % Plt Count (150-450) k/uL Neutrophils # (1.3-7.7) k/uL Lymphocytes # (1.0-4.8) k/uL PT (9.0-12.0) sec INR (<1.2) APTT (22.0-30.0) sec ABG pH (7.35-7.45) ABG pCO2 (35-45) mmHg ABG pO2 (83-108) mmHg ABG HCO3 (21-25) mmol/L ABG Total CO2 (19-24) mmol/L ABG O2 Saturation (94-97) % ABG Hematocrit (34.0-46.0) % ABG Potassium (3.4-4.5) mmol/L ABG Ionized Calcium (4.5-5.3) mg/dL ABG Glucose (75-99) mg/dL ABG Lactic Acid (0.5-1.6) mmol/L VBG pCO2 29 L (37-51) mmHg VBG HCO3 17 L (24-28) mmol/L Hemoglobin (13.0-17.5) gm/dL Potassium (3.5-5.1) mmol/L Chloride (98-107) mmol/L Carbon Dioxide (22-30) mmol/L Creatinine (0.66-1.25) mg/dL Glucose (74-99) mg/dL POC Glucose (mg/dL) 142 H 144 H (70-110) mg/dL Calcium (8.4-10.2) mg/dL Magnesium (1.6-2.3) mg/dL Total Protein (6.3-8.2) g/dL Albumin (3.5-5.0) g/dL Arterial Blood Potassium (3.4-4.5) mmol/L Arterial Blood Glucose (75-99) mg/dL Crossmatch 04/12/22 04/12/22 Range/Units 06:05 07:08 WBC (3.8-10.6) k/uL RBC (4.30-5.90) m/uL Hgb (13.0-17.5) gm/dL Hct (39.0-53.0) % MCH (25.0-35.0) pg MCHC (31.0-37.0) g/dL RDW (11.5-15.5) % Plt Count (150-450) k/uL Neutrophils # (1.3-7.7) k/uL Lymphocytes # (1.0-4.8) k/uL PT (9.0-12.0) sec INR (<1.2) APTT (22.0-30.0) sec ABG pH (7.35-7.45) ABG pCO2 (35-45) mmHg ABG pO2 (83-108) mmHg ABG HCO3 (21-25) mmol/L ABG Total CO2 (19-24) mmol/L ABG O2 Saturation (94-97) % ABG Hematocrit (34.0-46.0) % ABG Potassium (3.4-4.5) mmol/L ABG Ionized Calcium (4.5-5.3) mg/dL ABG Glucose (75-99) mg/dL ABG Lactic Acid (0.5-1.6) mmol/L VBG pCO2 (37-51) mmHg VBG HCO3 (24-28) mmol/L Hemoglobin (13.0-17.5) gm/dL Potassium (3.5-5.1) mmol/L Chloride (98-107) mmol/L Carbon Dioxide (22-30) mmol/L Creatinine (0.66-1.25) mg/dL Glucose (74-99) mg/dL POC Glucose (mg/dL) 159 H 157 H (70-110) mg/dL Calcium (8.4-10.2) mg/dL Magnesium (1.6-2.3) mg/dL Total Protein (6.3-8.2) g/dL Albumin (3.5-5.0) g/dL Arterial Blood Potassium (3.4-4.5) mmol/L Arterial Blood Glucose (75-99) mg/dL Crossmatch - Imaging and Cardiology Chest x-ray: report reviewed, image reviewed Assessment and Plan Assessment: 1. Coronary artery disease, status post four-vessel off-pump CABG 2. History of hypertension, currently hypotensive on dopamine 3. Hyperlipidemia, treated, cholesterol 157, LDL 85, triglycerides 169 4. Insulin-dependent diabetes, preoperative hemoglobin A1c 9.4% 5. Previous tobacco dependence 6. Mild COPD, preoperative FEV1 62% of predicted 7. Asthma 8. Liver cirrhosis 9. Leonard's esophagus 10. PAD 11. Melanoma skin cancer 12. Chronic iron deficiency anemia 13. Essential tremors 14. Depression 15. Family history of coronary artery disease 16. Postoperative acute blood loss anemia, expected given hemodilution and preoperative anemia Plan: 1. Continue aspirin, statin, Plavix, beta yolette therapy. Will increase beta yolette therapy as tolerated. IV nitro discontinued 2. Continue dopamine for now. We will give additional albumin 3. IV Cardizem discontinued yesterday. We will start oral calcium channel yolette when blood pressure able to tolerate for radial artery spasm prophylaxis 4. Continue amiodarone for A. fib prophylaxis, ChadsVasc 5. Will transition to oral today 5. Wean O2 as tolerated. Encourage incentive spirometry is 10 times every hour while awake. Bronchodilators per pulmonology 6. Increase activity, ambulate as tolerated. PT/OT/cardiac rehab consulted 7. Will monitor daily labs and x-rays. Electronic replacement per protocol 8. GI/DVT prophylaxis 9. Insulin management per primary care service. Patient is diabetic, normally on insulin pump 10. Pain control with current medication regimen. Avoid narcotics 11. Continue Shelton, Cordis, arterial line present with a 24 hours 12. Continue mediastinal/left pleural chest tubes for another 24 hours 13. Continue Woods catheter for another 24 hours for strict accurate intake and output 14. Daily weights 15. More recommendations to follow
[2022-04-12] MEDS: PRIMIDONE 50 MG TAB PO SCH (08:39)
[2022-04-12 08:41] VITALS: BMI 38.1
[2022-04-12] MEDS ORDERED: PANTOPRAZOLE 40 MG/10 ML VIAL IVP SCH (09:00)
[2022-04-12] MEDS ORDERED: bisacodyL 10 MG SUPP RECTAL PRN (09:00)
[2022-04-12 09:27] LABS: Glucose,Whole Blood 157 mg/dL (70-110)
[2022-04-12] MEDS: SODIUM CHLORIDE 0.9% 1,000 ML IV SCH (09:29)
[2022-04-12] MEDS: ACETAMINOPHEN IV (For NPO) 1,000 MG in EMPTY BAG 1 BAG IVPB SCH ×3 (09:33→20:21)
[2022-04-12 10:15] LABS: Glucose,Whole Blood 153 mg/dL (70-110)
--- NOTE | 2022-04-12 10:36 | P.PN ---
Subjective Progress Note Date: 04/12/22 Principal diagnosis: CABG Hospital Course: tiffany is a 77-year-old male with multivessel coronary artery disease, cirrhosis, insulin-dependent diabetes on insulin pump, peripheral vascular disease, history of rectal bleeding, Leonard's esophagus, iron deficiency anemia, melanoma, asthma, depression, former nicotine dependence, occasional alcohol use presenting for elective CABG. He is now status post surgery. CABG 4 with SANTA to LAD, left radial artery graft to first obtuse margin, saphenous vein graft to first diagonal, saphenous vein graft to posterior lateral branch of the RCA. Also had left atrial appendage ligation. [facility] physicians has been consulted for medical management. Patient was initially intubated and sedated. No extubated, on nasal cannula. Not on sedation. Continues to have left chest tube, and urinary catheter. Currently requiring dopamine. Subjective: Patient seen and examined bedside. No acute events overnight. He is now awake and alert, denies any significant pain. He does however complain about soreness throughout his body. He denies any significant respiratory distress, chest pain, abdominal pain, nausea, vomiting, diarrhea, or constipation. He continues to have urinary catheter. He was able to tolerate few sips of liquid today. Pertinent positives and negatives as discussed above, a complete review of systems was performed and all other systems are negative. Vitals Signs Reviewed. General: Obese, not in acute distress, sitting in chair Derm: warm, dry, midline sternal dressing, clean dry and intact, right chest tube Head: atraumatic, normocephalic, symmetric Eyes: anicteric sclera, pupils equal round reactive to light, EOMI ENT: Nose and ears atraumatic Neck: No thyromegaly, supple Mouth: no lip lesion, mucus membranes moist Cardiovascular: S1S2 reg, no murmur, no edema Lungs: CTAB, no wheeze, no accessory muscle use, 6 L nasal cannula Abdominal: soft, nondistended, normoactive bowel sounds Ext: no gross muscle atrophy Neuro: CN II-XII grossly intact Psych: Alert, oriented, appropriate affect Assessment and Plan: Severe multivessel coronary artery disease Status post CABG 4 -Post CABG 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, and warehouse consultant -Now extubated -Aspirin and Plavix, and statin -Amiodarone drip -Also on dopamine gtt -Pain control and antiemetics -Subcu heparin for DVT prophylaxis Insulin-dependent diabetes, on insulin pump -Hold off using insulin pump at the moment -on insulin drip History of cirrhosis History of Leonard's esophagus History of iron deficiency anemia -Continue to monitor for any GI bleed -Protonix Hypertension -hold isosorbide Asthma -Home inhalers Thank you for allowing us to participate in the care of this pleasant patient. Do not hesitate to contact us with questions. Someone can be reached from the [facility] hospitalist group all hours of the day at [phone] or via [employer]. Objective - Vital Signs Vital signs: Vital Signs Temp 97.3 F L 04/12/22 10:00 Pulse 67 04/12/22 10:00 Resp 9 L 04/12/22 10:00 BP 95/48 04/12/22 10:00 Pulse Ox 95 04/12/22 10:00 FiO2 50 04/12/22 05:00 Intake & Output 04/11/22 04/12/22 04/12/22 18:59 06:59 18:59 Intake Total 1044.842 822.391 815.976 Output Total 1820 685 195 Balance -775.158 137.391 620.976 Weight 113.8 kg 113.8 kg Intake: IV 729 588 356 .9NS Cardiac Output 130 130 20 0.9NS Pressure Bag 45 108 36 ACETAMINOPHEN IV (For NPO 100 100 ) 1,000 mg In Empty Bag 1 bag @ 400 mls/hr IVPB Q6HR [facility] Rx#:[id number] Magnesium Sulfate-D5w Pmx 200 1 gm In Dextrose/Water 1 100ml.bag @ 100 mls/hr IVPB Q1H [facility] Rx#: [id number] Sodium Chloride 0.9% 1, 200 350 150 000 ml @ 50 mls/hr IV . Q20H [facility] Rx#:[id number] ceFAZolin 2 gm In Sodium 50 50 Chloride 0.9% 50 ml @ 100 mls/hr IVPB Q8HR [facility] Rx# :[id number] Intake, IV Titration 315.842 234.391 219.976 Amount ACETAMINOPHEN IV (For NPO 100 ) 1,000 mg In Empty Bag 1 bag @ 400 mls/hr IVPB Q6HR [facility] Rx#:[id number] Albumin Human 5% 250 ml @ 250 0 mls/hr IVPB .[facility] Rx#:[id number] Amiodarone 450 mg In 204.726 Dextrose 5% in Water 250 ml @ 0.5 MG/MIN 16.667 mls/hr IV .Q15H [facility] Rx#: [id number] Clevidipine Butyrate 25 3.667 mg In Empty Bag 1 bag @ 1 MG/HR 2 mls/hr IV .Q24H [facility] Rx#:[id number] Insulin Regular 100 unit 12.175 34.391 15.250 In Sodium Chloride 0.9% 100 ml @ Per Protocol IV .Q0M [facility] Rx#:[id number] Sodium Chloride 0.9% 1, 50 000 ml @ 50 mls/hr IV . Q20H [facility] Rx#:[id number] ceFAZolin 2 gm In Sodium 100 Chloride 0.9% 50 ml @ 100 mls/hr IVPB Q8HR [facility] Rx# :[id number] Oral 240 Output: Chest Tube Drainage 555 440 130 Mediastinal and Left 555 440 130 Pleual Drainage 60 Right Calf 60 Urine 965 185 65 Estimated Blood Loss 300 Other: Voiding Method Indwelling Catheter Indwelling Catheter Indwelling Catheter ABP, PAP, CO, CI - Last Documented Arterial Blood Pressure 91/37 Pulmonary Artery Pressure 31/10 Cardiac Output 6.1 Cardiac Index 2.8 - Labs CBC & Chem 7: 04/12/22 02:30 04/12/22 02:30 Labs: Abnormal Lab Results - Last 24 Hours (Table) 04/01/22 04/11/22 04/11/22 Range/Units 11:05 08:34 08:37 WBC (3.8-10.6) k/uL RBC (4.30-5.90) m/uL Hgb (13.0-17.5) gm/dL Hct (39.0-53.0) % MCH (25.0-35.0) pg MCHC (31.0-37.0) g/dL RDW (11.5-15.5) % Plt Count (150-450) k/uL Neutrophils # (1.3-7.7) k/uL Lymphocytes # (1.0-4.8) k/uL PT (9.0-12.0) sec INR (<1.2) APTT (22.0-30.0) sec ABG pH (7.35-7.45) ABG pCO2 (35-45) mmHg ABG pO2 >420 H >420 H (83-108) mmHg ABG HCO3 (21-25) mmol/L ABG Total CO2 25 H (19-24) mmol/L ABG O2 Saturation 100.0 H 100.0 H (94-97) % ABG Hematocrit 28 L 28 L (34.0-46.0) % ABG Potassium 4.7 H 4.7 H (3.4-4.5) mmol/L ABG Ionized Calcium (4.5-5.3) mg/dL ABG Glucose 176 H 176 H (75-99) mg/dL ABG Lactic Acid 2.5 H* 2.5 H* (0.5-1.6) mmol/L VBG pCO2 (37-51) mmHg VBG HCO3 (24-28) mmol/L Hemoglobin 9.1 L 9.1 L (13.0-17.5) gm/dL Potassium (3.5-5.1) mmol/L Chloride (98-107) mmol/L Carbon Dioxide (22-30) mmol/L Creatinine (0.66-1.25) mg/dL Glucose (74-99) mg/dL POC Glucose (mg/dL) (70-110) mg/dL Calcium (8.4-10.2) mg/dL Magnesium (1.6-2.3) mg/dL Total Protein (6.3-8.2) g/dL Albumin (3.5-5.0) g/dL Arterial Blood Potassium 4.7 H 4.7 H (3.4-4.5) mmol/L Arterial Blood Glucose 176 H 176 H (75-99) mg/dL Crossmatch See Detail 04/11/22 04/11/22 04/11/22 Range/Units 10:15 11:09 12:05 WBC (3.8-10.6) k/uL RBC (4.30-5.90) m/uL Hgb (13.0-17.5) gm/dL Hct (39.0-53.0) % MCH (25.0-35.0) pg MCHC (31.0-37.0) g/dL RDW (11.5-15.5) % Plt Count (150-450) k/uL Neutrophils # (1.3-7.7) k/uL Lymphocytes # (1.0-4.8) k/uL PT (9.0-12.0) sec INR (<1.2) APTT (22.0-30.0) sec ABG pH (7.35-7.45) ABG pCO2 (35-45) mmHg ABG pO2 >420 H >420 H >420 H (83-108) mmHg ABG HCO3 (21-25) mmol/L ABG Total CO2 (19-24) mmol/L ABG O2 Saturation 100.0 H 100.0 H 100.0 H (94-97) % ABG Hematocrit 26 L 25 L 23 L (34.0-46.0) % ABG Potassium 4.8 H (3.4-4.5) mmol/L ABG Ionized Calcium 4.4 L 4.4 L 4.4 L (4.5-5.3) mg/dL ABG Glucose 171 H 162 H 146 H (75-99) mg/dL ABG Lactic Acid 2.8 H* 3.6 H* 3.5 H* (0.5-1.6) mmol/L VBG pCO2 (37-51) mmHg VBG HCO3 (24-28) mmol/L Hemoglobin 8.6 L 8.3 L 7.6 L (13.0-17.5) gm/dL Potassium (3.5-5.1) mmol/L Chloride (98-107) mmol/L Carbon Dioxide (22-30) mmol/L Creatinine (0.66-1.25) mg/dL Glucose (74-99) mg/dL POC Glucose (mg/dL) (70-110) mg/dL Calcium (8.4-10.2) mg/dL Magnesium (1.6-2.3) mg/dL Total Protein (6.3-8.2) g/dL Albumin (3.5-5.0) g/dL Arterial Blood Potassium 4.8 H (3.4-4.5) mmol/L Arterial Blood Glucose 171 H 162 H 146 H (75-99) mg/dL Crossmatch 04/11/22 04/11/22 04/11/22 Range/Units 12:25 13:15 13:15 WBC (3.8-10.6) k/uL RBC 2.82 L (4.30-5.90) m/uL Hgb 7.2 L D (13.0-17.5) gm/dL Hct 23.0 L (39.0-53.0) % MCH (25.0-35.0) pg MCHC (31.0-37.0) g/dL RDW 16.1 H (11.5-15.5) % Plt Count 104 L (150-450) k/uL Neutrophils # (1.3-7.7) k/uL Lymphocytes # (1.0-4.8) k/uL PT 14.6 H (9.0-12.0) sec INR 1.4 H (<1.2) APTT 35.4 H (22.0-30.0) sec ABG pH (7.35-7.45) ABG pCO2 (35-45) mmHg ABG pO2 356 H (83-108) mmHg ABG HCO3 (21-25) mmol/L ABG Total CO2 (19-24) mmol/L ABG O2 Saturation 100.0 H (94-97) % ABG Hematocrit 23 L (34.0-46.0) % ABG Potassium (3.4-4.5) mmol/L ABG Ionized Calcium 4.3 L (4.5-5.3) mg/dL ABG Glucose 138 H (75-99) mg/dL ABG Lactic Acid 3.6 H* (0.5-1.6) mmol/L VBG pCO2 (37-51) mmHg VBG HCO3 (24-28) mmol/L Hemoglobin 7.4 L (13.0-17.5) gm/dL Potassium (3.5-5.1) mmol/L Chloride (98-107) mmol/L Carbon Dioxide (22-30) mmol/L Creatinine (0.66-1.25) mg/dL Glucose (74-99) mg/dL POC Glucose (mg/dL) (70-110) mg/dL Calcium (8.4-10.2) mg/dL Magnesium (1.6-2.3) mg/dL Total Protein (6.3-8.2) g/dL Albumin (3.5-5.0) g/dL Arterial Blood Potassium (3.4-4.5) mmol/L Arterial Blood Glucose 138 H (75-99) mg/dL Crossmatch 04/11/22 04/11/22 04/11/22 Range/Units 13:15 13:17 13:32 WBC (3.8-10.6) k/uL RBC (4.30-5.90) m/uL Hgb (13.0-17.5) gm/dL Hct (39.0-53.0) % MCH (25.0-35.0) pg MCHC (31.0-37.0) g/dL RDW (11.5-15.5) % Plt Count (150-450) k/uL Neutrophils # (1.3-7.7) k/uL Lymphocytes # (1.0-4.8) k/uL PT (9.0-12.0) sec INR (<1.2) APTT (22.0-30.0) sec ABG pH 7.33 L (7.35-7.45) ABG pCO2 (35-45) mmHg ABG pO2 286 H (83-108) mmHg ABG HCO3 (21-25) mmol/L ABG Total CO2 (19-24) mmol/L ABG O2 Saturation 100.0 H (94-97) % ABG Hematocrit (34.0-46.0) % ABG Potassium (3.4-4.5) mmol/L ABG Ionized Calcium (4.5-5.3) mg/dL ABG Glucose (75-99) mg/dL ABG Lactic Acid (0.5-1.6) mmol/L VBG pCO2 (37-51) mmHg VBG HCO3 (24-28) mmol/L Hemoglobin (13.0-17.5) gm/dL Potassium (3.5-5.1) mmol/L Chloride 113 H (98-107) mmol/L Carbon Dioxide (22-30) mmol/L Creatinine (0.66-1.25) mg/dL Glucose 117 H (74-99) mg/dL POC Glucose (mg/dL) 127 H (70-110) mg/dL Calcium 7.0 L (8.4-10.2) mg/dL Magnesium 1.5 L (1.6-2.3) mg/dL Total Protein 4.3 L (6.3-8.2) g/dL Albumin 2.8 L (3.5-5.0) g/dL Arterial Blood Potassium (3.4-4.5) mmol/L Arterial Blood Glucose (75-99) mg/dL Crossmatch 04/11/22 04/11/22 04/11/22 Range/Units 15:45 16:09 17:03 WBC (3.8-10.6) k/uL RBC 3.25 L (4.30-5.90) m/uL Hgb 8.1 L (13.0-17.5) gm/dL Hct 26.6 L (39.0-53.0) % MCH (25.0-35.0) pg MCHC 30.5 L (31.0-37.0) g/dL RDW 16.2 H (11.5-15.5) % Plt Count 128 L (150-450) k/uL Neutrophils # (1.3-7.7) k/uL Lymphocytes # (1.0-4.8) k/uL PT (9.0-12.0) sec INR (<1.2) APTT (22.0-30.0) sec ABG pH (7.35-7.45) ABG pCO2 (35-45) mmHg ABG pO2 (83-108) mmHg ABG HCO3 (21-25) mmol/L ABG Total CO2 (19-24) mmol/L ABG O2 Saturation (94-97) % ABG Hematocrit (34.0-46.0) % ABG Potassium (3.4-4.5) mmol/L ABG Ionized Calcium (4.5-5.3) mg/dL ABG Glucose (75-99) mg/dL ABG Lactic Acid (0.5-1.6) mmol/L VBG pCO2 (37-51) mmHg VBG HCO3 (24-28) mmol/L Hemoglobin (13.0-17.5) gm/dL Potassium (3.5-5.1) mmol/L Chloride (98-107) mmol/L Carbon Dioxide (22-30) mmol/L Creatinine (0.66-1.25) mg/dL Glucose (74-99) mg/dL POC Glucose (mg/dL) 188 H 189 H (70-110) mg/dL Calcium (8.4-10.2) mg/dL Magnesium (1.6-2.3) mg/dL Total Protein (6.3-8.2) g/dL Albumin (3.5-5.0) g/dL Arterial Blood Potassium (3.4-4.5) mmol/L Arterial Blood Glucose (75-99) mg/dL Crossmatch 04/11/22 04/11/22 04/11/22 Range/Units 17:38 18:07 18:49 WBC (3.8-10.6) k/uL RBC (4.30-5.90) m/uL Hgb (13.0-17.5) gm/dL Hct (39.0-53.0) % MCH (25.0-35.0) pg MCHC (31.0-37.0) g/dL RDW (11.5-15.5) % Plt Count (150-450) k/uL Neutrophils # (1.3-7.7) k/uL Lymphocytes # (1.0-4.8) k/uL PT (9.0-12.0) sec INR (<1.2) APTT (22.0-30.0) sec ABG pH 7.26 L (7.35-7.45) ABG pCO2 50 H (35-45) mmHg ABG pO2 (83-108) mmHg ABG HCO3 (21-25) mmol/L ABG Total CO2 (19-24) mmol/L ABG O2 Saturation 98.1 H (94-97) % ABG Hematocrit (34.0-46.0) % ABG Potassium (3.4-4.5) mmol/L ABG Ionized Calcium (4.5-5.3) mg/dL ABG Glucose (75-99) mg/dL ABG Lactic Acid (0.5-1.6) mmol/L VBG pCO2 (37-51) mmHg VBG HCO3 (24-28) mmol/L Hemoglobin (13.0-17.5) gm/dL Potassium (3.5-5.1) mmol/L Chloride (98-107) mmol/L Carbon Dioxide (22-30) mmol/L Creatinine (0.66-1.25) mg/dL Glucose (74-99) mg/dL POC Glucose (mg/dL) 167 H 166 H (70-110) mg/dL Calcium (8.4-10.2) mg/dL Magnesium (1.6-2.3) mg/dL Total Protein (6.3-8.2) g/dL Albumin (3.5-5.0) g/dL Arterial Blood Potassium (3.4-4.5) mmol/L Arterial Blood Glucose (75-99) mg/dL Crossmatch 04/11/22 04/11/22 04/11/22 Range/Units 18:49 20:03 21:28 WBC 11.9 H (3.8-10.6) k/uL RBC 3.22 L (4.30-5.90) m/uL Hgb 8.1 L (13.0-17.5) gm/dL Hct 26.4 L (39.0-53.0) % MCH (25.0-35.0) pg MCHC 30.6 L (31.0-37.0) g/dL RDW 16.2 H (11.5-15.5) % Plt Count 138 L (150-450) k/uL Neutrophils # 10.6 H (1.3-7.7) k/uL Lymphocytes # 0.5 L (1.0-4.8) k/uL PT (9.0-12.0) sec INR (<1.2) APTT (22.0-30.0) sec ABG pH (7.35-7.45) ABG pCO2 (35-45) mmHg ABG pO2 (83-108) mmHg ABG HCO3 (21-25) mmol/L ABG Total CO2 (19-24) mmol/L ABG O2 Saturation (94-97) % ABG Hematocrit (34.0-46.0) % ABG Potassium (3.4-4.5) mmol/L ABG Ionized Calcium (4.5-5.3) mg/dL ABG Glucose (75-99) mg/dL ABG Lactic Acid (0.5-1.6) mmol/L VBG pCO2 (37-51) mmHg VBG HCO3 (24-28) mmol/L Hemoglobin (13.0-17.5) gm/dL Potassium (3.5-5.1) mmol/L Chloride (98-107) mmol/L Carbon Dioxide (22-30) mmol/L Creatinine (0.66-1.25) mg/dL Glucose (74-99) mg/dL POC Glucose (mg/dL) 149 H 129 H (70-110) mg/dL Calcium (8.4-10.2) mg/dL Magnesium (1.6-2.3) mg/dL Total Protein (6.3-8.2) g/dL Albumin (3.5-5.0) g/dL Arterial Blood Potassium (3.4-4.5) mmol/L Arterial Blood Glucose (75-99) mg/dL Crossmatch 04/11/22 04/11/22 04/12/22 Range/Units 22:17 23:12 00:01 WBC (3.8-10.6) k/uL RBC (4.30-5.90) m/uL Hgb (13.0-17.5) gm/dL Hct (39.0-53.0) % MCH (25.0-35.0) pg MCHC (31.0-37.0) g/dL RDW (11.5-15.5) % Plt Count (150-450) k/uL Neutrophils # (1.3-7.7) k/uL Lymphocytes # (1.0-4.8) k/uL PT (9.0-12.0) sec INR (<1.2) APTT (22.0-30.0) sec ABG pH (7.35-7.45) ABG pCO2 (35-45) mmHg ABG pO2 (83-108) mmHg ABG HCO3 (21-25) mmol/L ABG Total CO2 (19-24) mmol/L ABG O2 Saturation (94-97) % ABG Hematocrit (34.0-46.0) % ABG Potassium (3.4-4.5) mmol/L ABG Ionized Calcium (4.5-5.3) mg/dL ABG Glucose (75-99) mg/dL ABG Lactic Acid (0.5-1.6) mmol/L VBG pCO2 (37-51) mmHg VBG HCO3 (24-28) mmol/L Hemoglobin (13.0-17.5) gm/dL Potassium (3.5-5.1) mmol/L Chloride (98-107) mmol/L Carbon Dioxide (22-30) mmol/L Creatinine (0.66-1.25) mg/dL Glucose (74-99) mg/dL POC Glucose (mg/dL) 132 H 127 H 136 H (70-110) mg/dL Calcium (8.4-10.2) mg/dL Magnesium (1.6-2.3) mg/dL Total Protein (6.3-8.2) g/dL Albumin (3.5-5.0) g/dL Arterial Blood Potassium (3.4-4.5) mmol/L Arterial Blood Glucose (75-99) mg/dL Crossmatch 04/12/22 04/12/22 04/12/22 Range/Units 01:09 02:10 02:14 WBC (3.8-10.6) k/uL RBC (4.30-5.90) m/uL Hgb (13.0-17.5) gm/dL Hct (39.0-53.0) % MCH (25.0-35.0) pg MCHC (31.0-37.0) g/dL RDW (11.5-15.5) % Plt Count (150-450) k/uL Neutrophils # (1.3-7.7) k/uL Lymphocytes # (1.0-4.8) k/uL PT (9.0-12.0) sec INR (<1.2) APTT (22.0-30.0) sec ABG pH 7.26 L (7.35-7.45) ABG pCO2 (35-45) mmHg ABG pO2 69 L (83-108) mmHg ABG HCO3 20 L (21-25) mmol/L ABG Total CO2 (19-24) mmol/L ABG O2 Saturation 93.4 L (94-97) % ABG Hematocrit (34.0-46.0) % ABG Potassium (3.4-4.5) mmol/L ABG Ionized Calcium (4.5-5.3) mg/dL ABG Glucose (75-99) mg/dL ABG Lactic Acid (0.5-1.6) mmol/L VBG pCO2 (37-51) mmHg VBG HCO3 (24-28) mmol/L Hemoglobin (13.0-17.5) gm/dL Potassium (3.5-5.1) mmol/L Chloride (98-107) mmol/L Carbon Dioxide (22-30) mmol/L Creatinine (0.66-1.25) mg/dL Glucose (74-99) mg/dL POC Glucose (mg/dL) 134 H 143 H (70-110) mg/dL Calcium (8.4-10.2) mg/dL Magnesium (1.6-2.3) mg/dL Total Protein (6.3-8.2) g/dL Albumin (3.5-5.0) g/dL Arterial Blood Potassium (3.4-4.5) mmol/L Arterial Blood Glucose (75-99) mg/dL Crossmatch 04/12/22 04/12/22 04/12/22 Range/Units 02:30 02:30 03:07 WBC 20.9 H (3.8-10.6) k/uL RBC 3.20 L (4.30-5.90) m/uL Hgb 8.0 L (13.0-17.5) gm/dL Hct 26.5 L (39.0-53.0) % MCH 24.9 L (25.0-35.0) pg MCHC 30.1 L (31.0-37.0) g/dL RDW 16.2 H (11.5-15.5) % Plt Count (150-450) k/uL Neutrophils # 19.0 H (1.3-7.7) k/uL Lymphocytes # 0.8 L (1.0-4.8) k/uL PT (9.0-12.0) sec INR (<1.2) APTT (22.0-30.0) sec ABG pH (7.35-7.45) ABG pCO2 (35-45) mmHg ABG pO2 (83-108) mmHg ABG HCO3 (21-25) mmol/L ABG Total CO2 (19-24) mmol/L ABG O2 Saturation (94-97) % ABG Hematocrit (34.0-46.0) % ABG Potassium (3.4-4.5) mmol/L ABG Ionized Calcium (4.5-5.3) mg/dL ABG Glucose (75-99) mg/dL ABG Lactic Acid (0.5-1.6) mmol/L VBG pCO2 (37-51) mmHg VBG HCO3 (24-28) mmol/L Hemoglobin (13.0-17.5) gm/dL Potassium 5.3 H (3.5-5.1) mmol/L Chloride 113 H (98-107) mmol/L Carbon Dioxide 19 L (22-30) mmol/L Creatinine 1.37 H (0.66-1.25) mg/dL Glucose 135 H (74-99) mg/dL POC Glucose (mg/dL) 140 H (70-110) mg/dL Calcium 7.1 L (8.4-10.2) mg/dL Magnesium (1.6-2.3) mg/dL Total Protein 5.0 L (6.3-8.2) g/dL Albumin 3.2 L (3.5-5.0) g/dL Arterial Blood Potassium (3.4-4.5) mmol/L Arterial Blood Glucose (75-99) mg/dL Crossmatch 04/12/22 04/12/22 04/12/22 Range/Units 03:10 04:25 05:10 WBC (3.8-10.6) k/uL RBC (4.30-5.90) m/uL Hgb (13.0-17.5) gm/dL Hct (39.0-53.0) % MCH (25.0-35.0) pg MCHC (31.0-37.0) g/dL RDW (11.5-15.5) % Plt Count (150-450) k/uL Neutrophils # (1.3-7.7) k/uL Lymphocytes # (1.0-4.8) k/uL PT (9.0-12.0) sec INR (<1.2) APTT (22.0-30.0) sec ABG pH (7.35-7.45) ABG pCO2 (35-45) mmHg ABG pO2 (83-108) mmHg ABG HCO3 (21-25) mmol/L ABG Total CO2 (19-24) mmol/L ABG O2 Saturation (94-97) % ABG Hematocrit (34.0-46.0) % ABG Potassium (3.4-4.5) mmol/L ABG Ionized Calcium (4.5-5.3) mg/dL ABG Glucose (75-99) mg/dL ABG Lactic Acid (0.5-1.6) mmol/L VBG pCO2 29 L (37-51) mmHg VBG HCO3 17 L (24-28) mmol/L Hemoglobin (13.0-17.5) gm/dL Potassium (3.5-5.1) mmol/L Chloride (98-107) mmol/L Carbon Dioxide (22-30) mmol/L Creatinine (0.66-1.25) mg/dL Glucose (74-99) mg/dL POC Glucose (mg/dL) 142 H 144 H (70-110) mg/dL Calcium (8.4-10.2) mg/dL Magnesium (1.6-2.3) mg/dL Total Protein (6.3-8.2) g/dL Albumin (3.5-5.0) g/dL Arterial Blood Potassium (3.4-4.5) mmol/L Arterial Blood Glucose (75-99) mg/dL Crossmatch 04/12/22 04/12/22 04/12/22 Range/Units 06:05 07:08 08:13 WBC (3.8-10.6) k/uL RBC (4.30-5.90) m/uL Hgb (13.0-17.5) gm/dL Hct (39.0-53.0) % MCH (25.0-35.0) pg MCHC (31.0-37.0) g/dL RDW (11.5-15.5) % Plt Count (150-450) k/uL Neutrophils # (1.3-7.7) k/uL Lymphocytes # (1.0-4.8) k/uL PT (9.0-12.0) sec INR (<1.2) APTT (22.0-30.0) sec ABG pH (7.35-7.45) ABG pCO2 (35-45) mmHg ABG pO2 (83-108) mmHg ABG HCO3 (21-25) mmol/L ABG Total CO2 (19-24) mmol/L ABG O2 Saturation (94-97) % ABG Hematocrit (34.0-46.0) % ABG Potassium (3.4-4.5) mmol/L ABG Ionized Calcium (4.5-5.3) mg/dL ABG Glucose (75-99) mg/dL ABG Lactic Acid (0.5-1.6) mmol/L VBG pCO2 (37-51) mmHg VBG HCO3 (24-28) mmol/L Hemoglobin (13.0-17.5) gm/dL Potassium (3.5-5.1) mmol/L Chloride (98-107) mmol/L Carbon Dioxide (22-30) mmol/L Creatinine (0.66-1.25) mg/dL Glucose (74-99) mg/dL POC Glucose (mg/dL) 159 H 157 H 150 H (70-110) mg/dL Calcium (8.4-10.2) mg/dL Magnesium (1.6-2.3) mg/dL Total Protein (6.3-8.2) g/dL Albumin (3.5-5.0) g/dL Arterial Blood Potassium (3.4-4.5) mmol/L Arterial Blood Glucose (75-99) mg/dL Crossmatch 04/12/22 04/12/22 Range/Units 09:25 10:14 WBC (3.8-10.6) k/uL RBC (4.30-5.90) m/uL Hgb (13.0-17.5) gm/dL Hct (39.0-53.0) % MCH (25.0-35.0) pg MCHC (31.0-37.0) g/dL RDW (11.5-15.5) % Plt Count (150-450) k/uL Neutrophils # (1.3-7.7) k/uL Lymphocytes # (1.0-4.8) k/uL PT (9.0-12.0) sec INR (<1.2) APTT (22.0-30.0) sec ABG pH (7.35-7.45) ABG pCO2 (35-45) mmHg ABG pO2 (83-108) mmHg ABG HCO3 (21-25) mmol/L ABG Total CO2 (19-24) mmol/L ABG O2 Saturation (94-97) % ABG Hematocrit (34.0-46.0) % ABG Potassium (3.4-4.5) mmol/L ABG Ionized Calcium (4.5-5.3) mg/dL ABG Glucose (75-99) mg/dL ABG Lactic Acid (0.5-1.6) mmol/L VBG pCO2 (37-51) mmHg VBG HCO3 (24-28) mmol/L Hemoglobin (13.0-17.5) gm/dL Potassium (3.5-5.1) mmol/L Chloride (98-107) mmol/L Carbon Dioxide (22-30) mmol/L Creatinine (0.66-1.25) mg/dL Glucose (74-99) mg/dL POC Glucose (mg/dL) 157 H 153 H (70-110) mg/dL Calcium (8.4-10.2) mg/dL Magnesium (1.6-2.3) mg/dL Total Protein (6.3-8.2) g/dL Albumin (3.5-5.0) g/dL Arterial Blood Potassium (3.4-4.5) mmol/L Arterial Blood Glucose (75-99) mg/dL Crossmatch
--- NOTE | 2022-04-12 10:40 | P.PN ---
Subjective Progress Note Date: 04/12/22 This is a 77-year-old male patient with a known history of diabetes mellitus, melanoma, Leonard's esophagus, Parkinson tremors, cirrhosis of the liver, former smoker coronary artery disease. He had undergone cardiac catheterization on 03/23/2022 and was found to have calcified coronary arteries. Critical stenosis involving the proximal LAD and the first diagonal branch, severe stenosis in the first and second OM. Moderate to severe disease in the right PLV. He was recommended coronary artery bypass surgery. He was brought in today electively for the procedure. He received CABG 4 with a SANTA to the LAD, left radial artery to the first obtuse marginal, saphenous vein graft to first diagonal and a saphenous vein graft to the posterior lateral branch of the RCA. Litigation a left atrial appendage with Atricure clamp. 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 He is intubated on the mechanical ventilator with assist-control mode at the rate of 12, tidal volume 500, FiO2 50% and a PEEP of 5. Arterial blood gases on 100% FiO2 revealed a P O2 of 286, pCO2 43, pH 7.33. He has normal saline at 50 MLS per hour. Nitroglycerin drip at 5 mcg/m. Propofol is at 10 mcg/kg/m. Insulin drip at 3 units per hour. Pending amiodarone drip at 1 mg/m. Right IJ Redgranite-Javi catheter in place. His cardiac output is currently 6.2. Cardiac index 2.8. PA pressure 41/1. CVP 16. Core temperature of 95.5. Warming blanket is applied. Heart hugger in place. Dressing dry and intact. Left pleural and mediastinal chest tubes in place. White count 7.8. Hemoglobin 7.2. Platelets 104. INR 1.4. Sodium 142. Potassium 4.1. BUN 14. Creatinine 0.88. Glucose 117. Chest x-ray reveals tubes and lines in satisfactory position. Small bilateral effusions. No pneum othorax. The patient is seen today 04/12/2022 in follow-up in the intensive care unit. He is currently awake and alert. Sitting up in a chair at the bedside. Maintaining O2 saturations in the 90s on 6 L high flow nasal cannula. At one point during the night he was somewhat obtunded. He was placed on BiPAP for approximately 3 hours with improvement. He was extubated in less than 6 hours. Chest x-ray reveals small bilateral effusions. Persistent airspace opacity in the lateral left lung. Endotracheal tube and gastric tube removed. Mediastinal and left pleural chest tubes remain in place. Redgranite-Javi catheter in place. cardiac output 6.1. Cardiac index 2.8. PA pressure 31/10. CVP 14. white count 20.9. Hemoglobin 8.0. Sodium 139. Potassium 5.3. Chloride 113. Bicarb 19. BUN 18. Creatinine 1.37. Albumin 3.2. Magnesium 1.9. He is working well with the incentive spirometer. He remains on a dopamine drip at 2.5 mcg/kg/m. Amiodarone at 0.5 mg/m. Insulin drip at 4.5 units per hour. Lactated Ringer's at 50 mL per hour. appendectomy is continued on DuoNeb inhalations, Symbicort. Heparin for DVT prophylaxis. Objective - Vital Signs Vital signs: Vital Signs Temp 97.3 F L 04/12/22 10:00 Pulse 67 04/12/22 10:00 Resp 9 L 04/12/22 10:00 BP 95/48 04/12/22 10:00 Pulse Ox 95 04/12/22 10:00 FiO2 50 04/12/22 05:00 Intake & Output 04/11/22 04/12/22 04/12/22 18:59 06:59 18:59 Intake Total 1044.842 822.391 228.976 Output Total 1820 685 125 Balance -775.158 137.391 103.976 Weight 113.8 kg 113.8 kg Intake: IV 729 588 9 .9NS Cardiac Output 130 130 0.9NS Pressure Bag 45 108 9 ACETAMINOPHEN IV (For NPO 100 ) 1,000 mg In Empty Bag 1 bag @ 400 mls/hr IVPB Q6HR [facility] Rx#:[id number] Magnesium Sulfate-D5w Pmx 200 1 gm In Dextrose/Water 1 100ml.bag @ 100 mls/hr IVPB Q1H [facility] Rx#: [id number] Sodium Chloride 0.9% 1, 200 350 000 ml @ 50 mls/hr IV . Q20H [facility] Rx#:[id number] ceFAZolin 2 gm In Sodium 50 Chloride 0.9% 50 ml @ 100 mls/hr IVPB Q8HR [facility] Rx# :[id number] Intake, IV Titration 315.842 234.391 219.976 Amount ACETAMINOPHEN IV (For NPO 100 ) 1,000 mg In Empty Bag 1 bag @ 400 mls/hr IVPB Q6HR [facility] Rx#:[id number] Albumin Human 5% 250 ml @ 250 0 mls/hr IVPB [facility] Rx#:[id number] Amiodarone 450 mg In 204.726 Dextrose 5% in Water 250 ml @ 0.5 MG/MIN 16.667 mls/hr IV .Q15H [facility] Rx#: [id number] Clevidipine Butyrate 25 3.667 mg In Empty Bag 1 bag @ 1 MG/HR 2 mls/hr IV .Q24H [facility] Rx#:[id number] Insulin Regular 100 unit 12.175 34.391 15.250 In Sodium Chloride 0.9% 100 ml @ Per Protocol IV .Q0M [facility] Rx#:[id number] Sodium Chloride 0.9% 1, 50 000 ml @ 50 mls/hr IV . Q20H [facility] Rx#:[id number] ceFAZolin 2 gm In Sodium 100 Chloride 0.9% 50 ml @ 100 mls/hr IVPB Q8HR [facility] Rx# :[id number] Output: Chest Tube Drainage 555 440 100 Mediastinal and Left 555 440 100 Pleual Drainage 60 Right Calf 60 Urine 965 185 25 Estimated Blood Loss 300 Other: Voiding Method Indwelling Catheter Indwelling Catheter Indwelling Catheter ABP, PAP, CO, CI - Last Documented Arterial Blood Pressure 91/37 Pulmonary Artery Pressure 31/10 Cardiac Output 6.1 Cardiac Index 2.8 - Exam GENERAL EXAM: Alert, pleasant 77-year-old gentleman, on 6 L high flow nasal cannula, up in a chair, comfortable in no apparent distress. HEAD: Normocephalic. EYES: Normal reaction of pupils, equal size. NOSE: Clear with pink turbinates. THROAT: No erythema or exudates. NECK: Right internal jugular Redgranite-Javi catheter in placeNo masses, no JVD. CHEST: Sternal dressing dry and intact. Heart hugger in place. Mediastinal and left pleural chest tubes in place. LUNGS: Equal air entry with few scattered rhonchis. CVS: S1 and S2 normal with no audible murmur, regular rhythm. ABDOMEN: No hepatosplenomegaly, normal bowel sounds, no guarding or rigidity. SPINE: No scoliosis or deformity SKIN: No rashes CENTRAL NERVOUS SYSTEM: No focal deficits, tone is normal in all 4 extremities. EXTREMITIES: Right radial arterial line in place. Right lower extremity HUMBERTO drain in place. There is no peripheral edema. No clubbing, no cyanosis. Periph eral pulses are intact. - Labs CBC & Chem 7: 04/12/22 02:30 04/12/22 02:30 Labs: Abnormal Lab Results - Last 24 Hours (Table) 04/01/22 04/11/22 04/11/22 Range/Units 11:05 08:34 08:37 WBC (3.8-10.6) k/uL RBC (4.30-5.90) m/uL Hgb (13.0-17.5) gm/dL Hct (39.0-53.0) % MCH (25.0-35.0) pg MCHC (31.0-37.0) g/dL RDW (11.5-15.5) % Plt Count (150-450) k/uL Neutrophils # (1.3-7.7) k/uL Lymphocytes # (1.0-4.8) k/uL PT (9.0-12.0) sec INR (<1.2) APTT (22.0-30.0) sec ABG pH (7.35-7.45) ABG pCO2 (35-45) mmHg ABG pO2 >420 H >420 H (83-108) mmHg ABG HCO3 (21-25) mmol/L ABG Total CO2 25 H (19-24) mmol/L ABG O2 Saturation 100.0 H 100.0 H (94-97) % ABG Hematocrit 28 L 28 L (34.0-46.0) % ABG Potassium 4.7 H 4.7 H (3.4-4.5) mmol/L ABG Ionized Calcium (4.5-5.3) mg/dL ABG Glucose 176 H 176 H (75-99) mg/dL ABG Lactic Acid 2.5 H* 2.5 H* (0.5-1.6) mmol/L VBG pCO2 (37-51) mmHg VBG HCO3 (24-28) mmol/L Hemoglobin 9.1 L 9.1 L (13.0-17.5) gm/dL Potassium (3.5-5.1) mmol/L Chloride (98-107) mmol/L Carbon Dioxide (22-30) mmol/L Creatinine (0.66-1.25) mg/dL Glucose (74-99) mg/dL POC Glucose (mg/dL) (70-110) mg/dL Calcium (8.4-10.2) mg/dL Magnesium (1.6-2.3) mg/dL Total Protein (6.3-8.2) g/dL Albumin (3.5-5.0) g/dL Arterial Blood Potassium 4.7 H 4.7 H (3.4-4.5) mmol/L Arterial Blood Glucose 176 H 176 H (75-99) mg/dL Crossmatch See Detail 04/11/22 04/11/22 04/11/22 Range/Units 10:15 11:09 12:05 WBC (3.8-10.6) k/uL RBC (4.30-5.90) m/uL Hgb (13.0-17.5) gm/dL Hct (39.0-53.0) % MCH (25.0-35.0) pg MCHC (31.0-37.0) g/dL RDW (11.5-15.5) % Plt Count (150-450) k/uL Neutrophils # (1.3-7.7) k/uL Lymphocytes # (1.0-4.8) k/uL PT (9.0-12.0) sec INR (<1.2) APTT (22.0-30.0) sec ABG pH (7.35-7.45) ABG pCO2 (35-45) mmHg ABG pO2 >420 H >420 H >420 H (83-108) mmHg ABG HCO3 (21-25) mmol/L ABG Total CO2 (19-24) mmol/L ABG O2 Saturation 100.0 H 100.0 H 100.0 H (94-97) % ABG Hematocrit 26 L 25 L 23 L (34.0-46.0) % ABG Potassium 4.8 H (3.4-4.5) mmol/L ABG Ionized Calcium 4.4 L 4.4 L 4.4 L (4.5-5.3) mg/dL ABG Glucose 171 H 162 H 146 H (75-99) mg/dL ABG Lactic Acid 2.8 H* 3.6 H* 3.5 H* (0.5-1.6) mmol/L VBG pCO2 (37-51) mmHg VBG HCO3 (24-28) mmol/L Hemoglobin 8.6 L 8.3 L 7.6 L (13.0-17.5) gm/dL Potassium (3.5-5.1) mmol/L Chloride (98-107) mmol/L Carbon Dioxide (22-30) mmol/L Creatinine (0.66-1.25) mg/dL Glucose (74-99) mg/dL POC Glucose (mg/dL) (70-110) mg/dL Calcium (8.4-10.2) mg/dL Magnesium (1.6-2.3) mg/dL Total Protein (6.3-8.2) g/dL Albumin (3.5-5.0) g/dL Arterial Blood Potassium 4.8 H (3.4-4.5) mmol/L Arterial Blood Glucose 171 H 162 H 146 H (75-99) mg/dL Crossmatch 04/11/22 04/11/22 04/11/22 Range/Units 12:25 13:15 13:15 WBC (3.8-10.6) k/uL RBC 2.82 L (4.30-5.90) m/uL Hgb 7.2 L D (13.0-17.5) gm/dL Hct 23.0 L (39.0-53.0) % MCH (25.0-35.0) pg MCHC (31.0-37.0) g/dL RDW 16.1 H (11.5-15.5) % Plt Count 104 L (150-450) k/uL Neutrophils # (1.3-7.7) k/uL Lymphocytes # (1.0-4.8) k/uL PT 14.6 H (9.0-12.0) sec INR 1.4 H (<1.2) APTT 35.4 H (22.0-30.0) sec ABG pH (7.35-7.45) ABG pCO2 (35-45) mmHg ABG pO2 356 H (83-108) mmHg ABG HCO3 (21-25) mmol/L ABG Total CO2 (19-24) mmol/L ABG O2 Saturation 100.0 H (94-97) % ABG Hematocrit 23 L (34.0-46.0) % ABG Potassium (3.4-4.5) mmol/L ABG Ionized Calcium 4.3 L (4.5-5.3) mg/dL ABG Glucose 138 H (75-99) mg/dL ABG Lactic Acid 3.6 H* (0.5-1.6) mmol/L VBG pCO2 (37-51) mmHg VBG HCO3 (24-28) mmol/L Hemoglobin 7.4 L (13.0-17.5) gm/dL Potassium (3.5-5.1) mmol/L Chloride (98-107) mmol/L Carbon Dioxide (22-30) mmol/L Creatinine (0.66-1.25) mg/dL Glucose (74-99) mg/dL POC Glucose (mg/dL) (70-110) mg/dL Calcium (8.4-10.2) mg/dL Magnesium (1.6-2.3) mg/dL Total Protein (6.3-8.2) g/dL Albumin (3.5-5.0) g/dL Arterial Blood Potassium (3.4-4.5) mmol/L Arterial Blood Glucose 138 H (75-99) mg/dL Crossmatch 04/11/22 04/11/22 04/11/22 Range/Units 13:15 13:17 13:32 WBC (3.8-10.6) k/uL RBC (4.30-5.90) m/uL Hgb (13.0-17.5) gm/dL Hct (39.0-53.0) % MCH (25.0-35.0) pg MCHC (31.0-37.0) g/dL RDW (11.5-15.5) % Plt Count (150-450) k/uL Neutrophils # (1.3-7.7) k/uL Lymphocytes # (1.0-4.8) k/uL PT (9.0-12.0) sec INR (<1.2) APTT (22.0-30.0) sec ABG pH 7.33 L (7.35-7.45) ABG pCO2 (35-45) mmHg ABG pO2 286 H (83-108) mmHg ABG HCO3 (21-25) mmol/L ABG Total CO2 (19-24) mmol/L ABG O2 Saturation 100.0 H (94-97) % ABG Hematocrit (34.0-46.0) % ABG Potassium (3.4-4.5) mmol/L ABG Ionized Calcium (4.5-5.3) mg/dL ABG Glucose (75-99) mg/dL ABG Lactic Acid (0.5-1.6) mmol/L VBG pCO2 (37-51) mmHg VBG HCO3 (24-28) mmol/L Hemoglobin (13.0-17.5) gm/dL Potassium (3.5-5.1) mmol/L Chloride 113 H (98-107) mmol/L Carbon Dioxide (22-30) mmol/L Creatinine (0.66-1.25) mg/dL Glucose 117 H (74-99) mg/dL POC Glucose (mg/dL) 127 H (70-110) mg/dL Calcium 7.0 L (8.4-10.2) mg/dL Magnesium 1.5 L (1.6-2.3) mg/dL Total Protein 4.3 L (6.3-8.2) g/dL Albumin 2.8 L (3.5-5.0) g/dL Arterial Blood Potassium (3.4-4.5) mmol/L Arterial Blood Glucose (75-99) mg/dL Crossmatch 04/11/22 04/11/22 04/11/22 Range/Units 15:45 16:09 17:03 WBC (3.8-10.6) k/uL RBC 3.25 L (4.30-5.90) m/uL Hgb 8.1 L (13.0-17.5) gm/dL Hct 26.6 L (39.0-53.0) % MCH (25.0-35.0) pg MCHC 30.5 L (31.0-37.0) g/dL RDW 16.2 H (11.5-15.5) % Plt Count 128 L (150-450) k/uL Neutrophils # (1.3-7.7) k/uL Lymphocytes # (1.0-4.8) k/uL PT (9.0-12.0) sec INR (<1.2) APTT (22.0-30.0) sec ABG pH (7.35-7.45) ABG pCO2 (35-45) mmHg ABG pO2 (83-108) mmHg ABG HCO3 (21-25) mmol/L ABG Total CO2 (19-24) mmol/L ABG O2 Saturation (94-97) % ABG Hematocrit (34.0-46.0) % ABG Potassium (3.4-4.5) mmol/L ABG Ionized Calcium (4.5-5.3) mg/dL ABG Glucose (75-99) mg/dL ABG Lactic Acid (0.5-1.6) mmol/L VBG pCO2 (37-51) mmHg VBG HCO3 (24-28) mmol/L Hemoglobin (13.0-17.5) gm/dL Potassium (3.5-5.1) mmol/L Chloride (98-107) mmol/L Carbon Dioxide (22-30) mmol/L Creatinine (0.66-1.25) mg/dL Glucose (74-99) mg/dL POC Glucose (mg/dL) 188 H 189 H (70-110) mg/dL Calcium (8.4-10.2) mg/dL Magnesium (1.6-2.3) mg/dL Total Protein (6.3-8.2) g/dL Albumin (3.5-5.0) g/dL Arterial Blood Potassium (3.4-4.5) mmol/L Arterial Blood Glucose (75-99) mg/dL Crossmatch 04/11/22 04/11/22 04/11/22 Range/Units 17:38 18:07 18:49 WBC (3.8-10.6) k/uL RBC (4.30-5.90) m/uL Hgb (13.0-17.5) gm/dL Hct (39.0-53.0) % MCH (25.0-35.0) pg MCHC (31.0-37.0) g/dL RDW (11.5-15.5) % Plt Count (150-450) k/uL Neutrophils # (1.3-7.7) k/uL Lymphocytes # (1.0-4.8) k/uL PT (9.0-12.0) sec INR (<1.2) APTT (22.0-30.0) sec ABG pH 7.26 L (7.35-7.45) ABG pCO2 50 H (35-45) mmHg ABG pO2 (83-108) mmHg ABG HCO3 (21-25) mmol/L ABG Total CO2 (19-24) mmol/L ABG O2 Saturation 98.1 H (94-97) % ABG Hematocrit (34.0-46.0) % ABG Potassium (3.4-4.5) mmol/L ABG Ionized Calcium (4.5-5.3) mg/dL ABG Glucose (75-99) mg/dL ABG Lactic Acid (0.5-1.6) mmol/L VBG pCO2 (37-51) mmHg VBG HCO3 (24-28) mmol/L Hemoglobin (13.0-17.5) gm/dL Potassium (3.5-5.1) mmol/L Chloride (98-107) mmol/L Carbon Dioxide (22-30) mmol/L Creatinine (0.66-1.25) mg/dL Glucose (74-99) mg/dL POC Glucose (mg/dL) 167 H 166 H (70-110) mg/dL Calcium (8.4-10.2) mg/dL Magnesium (1.6-2.3) mg/dL Total Protein (6.3-8.2) g/dL Albumin (3.5-5.0) g/dL Arterial Blood Potassium (3.4-4.5) mmol/L Arterial Blood Glucose (75-99) mg/dL Crossmatch 04/11/22 04/11/22 04/11/22 Range/Units 18:49 20:03 21:28 WBC 11.9 H (3.8-10.6) k/uL RBC 3.22 L (4.30-5.90) m/uL Hgb 8.1 L (13.0-17.5) gm/dL Hct 26.4 L (39.0-53.0) % MCH (25.0-35.0) pg MCHC 30.6 L (31.0-37.0) g/dL RDW 16.2 H (11.5-15.5) % Plt Count 138 L (150-450) k/uL Neutrophils # 10.6 H (1.3-7.7) k/uL Lymphocytes # 0.5 L (1.0-4.8) k/uL PT (9.0-12.0) sec INR (<1.2) APTT (22.0-30.0) sec ABG pH (7.35-7.45) ABG pCO2 (35-45) mmHg ABG pO2 (83-108) mmHg ABG HCO3 (21-25) mmol/L ABG Total CO2 (19-24) mmol/L ABG O2 Saturation (94-97) % ABG Hematocrit (34.0-46.0) % ABG Potassium (3.4-4.5) mmol/L ABG Ionized Calcium (4.5-5.3) mg/dL ABG Glucose (75-99) mg/dL ABG Lactic Acid (0.5-1.6) mmol/L VBG pCO2 (37-51) mmHg VBG HCO3 (24-28) mmol/L Hemoglobin (13.0-17.5) gm/dL Potassium (3.5-5.1) mmol/L Chloride (98-107) mmol/L Carbon Dioxide (22-30) mmol/L Creatinine (0.66-1.25) mg/dL Glucose (74-99) mg/dL POC Glucose (mg/dL) 149 H 129 H (70-110) mg/dL Calcium (8.4-10.2) mg/dL Magnesium (1.6-2.3) mg/dL Total Protein (6.3-8.2) g/dL Albumin (3.5-5.0) g/dL Arterial Blood Potassium (3.4-4.5) mmol/L Arterial Blood Glucose (75-99) mg/dL Crossmatch 04/11/22 04/11/22 04/12/22 Range/Units 22:17 23:12 00:01 WBC (3.8-10.6) k/uL RBC (4.30-5.90) m/uL Hgb (13.0-17.5) gm/dL Hct (39.0-53.0) % MCH (25.0-35.0) pg MCHC (31.0-37.0) g/dL RDW (11.5-15.5) % Plt Count (150-450) k/uL Neutrophils # (1.3-7.7) k/uL Lymphocytes # (1.0-4.8) k/uL PT (9.0-12.0) sec INR (<1.2) APTT (22.0-30.0) sec ABG pH (7.35-7.45) ABG pCO2 (35-45) mmHg ABG pO2 (83-108) mmHg ABG HCO3 (21-25) mmol/L ABG Total CO2 (19-24) mmol/L ABG O2 Saturation (94-97) % ABG Hematocrit (34.0-46.0) % ABG Potassium (3.4-4.5) mmol/L ABG Ionized Calcium (4.5-5.3) mg/dL ABG Glucose (75-99) mg/dL ABG Lactic Acid (0.5-1.6) mmol/L VBG pCO2 (37-51) mmHg VBG HCO3 (24-28) mmol/L Hemoglobin (13.0-17.5) gm/dL Potassium (3.5-5.1) mmol/L Chloride (98-107) mmol/L Carbon Dioxide (22-30) mmol/L Creatinine (0.66-1.25) mg/dL Glucose (74-99) mg/dL POC Glucose (mg/dL) 132 H 127 H 136 H (70-110) mg/dL Calcium (8.4-10.2) mg/dL Magnesium (1.6-2.3) mg/dL Total Protein (6.3-8.2) g/dL Albumin (3.5-5.0) g/dL Arterial Blood Potassium (3.4-4.5) mmol/L Arterial Blood Glucose (75-99) mg/dL Crossmatch 04/12/22 04/12/22 04/12/22 Range/Units 01:09 02:10 02:14 WBC (3.8-10.6) k/uL RBC (4.30-5.90) m/uL Hgb (13.0-17.5) gm/dL Hct (39.0-53.0) % MCH (25.0-35.0) pg MCHC (31.0-37.0) g/dL RDW (11.5-15.5) % Plt Count (150-450) k/uL Neutrophils # (1.3-7.7) k/uL Lymphocytes # (1.0-4.8) k/uL PT (9.0-12.0) sec INR (<1.2) APTT (22.0-30.0) sec ABG pH 7.26 L (7.35-7.45) ABG pCO2 (35-45) mmHg ABG pO2 69 L (83-108) mmHg ABG HCO3 20 L (21-25) mmol/L ABG Total CO2 (19-24) mmol/L ABG O2 Saturation 93.4 L (94-97) % ABG Hematocrit (34.0-46.0) % ABG Potassium (3.4-4.5) mmol/L ABG Ionized Calcium (4.5-5.3) mg/dL ABG Glucose (75-99) mg/dL ABG Lactic Acid (0.5-1.6) mmol/L VBG pCO2 (37-51) mmHg VBG HCO3 (24-28) mmol/L Hemoglobin (13.0-17.5) gm/dL Potassium (3.5-5.1) mmol/L Chloride (98-107) mmol/L Carbon Dioxide (22-30) mmol/L Creatinine (0.66-1.25) mg/dL Glucose (74-99) mg/dL POC Glucose (mg/dL) 134 H 143 H (70-110) mg/dL Calcium (8.4-10.2) mg/dL Magnesium (1.6-2.3) mg/dL Total Protein (6.3-8.2) g/dL Albumin (3.5-5.0) g/dL Arterial Blood Potassium (3.4-4.5) mmol/L Arterial Blood Glucose (75-99) mg/dL Crossmatch 04/12/22 04/12/22 04/12/22 Range/Units 02:30 02:30 03:07 WBC 20.9 H (3.8-10.6) k/uL RBC 3.20 L (4.30-5.90) m/uL Hgb 8.0 L (13.0-17.5) gm/dL Hct 26.5 L (39.0-53.0) % MCH 24.9 L (25.0-35.0) pg MCHC 30.1 L (31.0-37.0) g/dL RDW 16.2 H (11.5-15.5) % Plt Count (150-450) k/uL Neutrophils # 19.0 H (1.3-7.7) k/uL Lymphocytes # 0.8 L (1.0-4.8) k/uL PT (9.0-12.0) sec INR (<1.2) APTT (22.0-30.0) sec ABG pH (7.35-7.45) ABG pCO2 (35-45) mmHg ABG pO2 (83-108) mmHg ABG HCO3 (21-25) mmol/L ABG Total CO2 (19-24) mmol/L ABG O2 Saturation (94-97) % ABG Hematocrit (34.0-46.0) % ABG Potassium (3.4-4.5) mmol/L ABG Ionized Calcium (4.5-5.3) mg/dL ABG Glucose (75-99) mg/dL ABG Lactic Acid (0.5-1.6) mmol/L VBG pCO2 (37-51) mmHg VBG HCO3 (24-28) mmol/L Hemoglobin (13.0-17.5) gm/dL Potassium 5.3 H (3.5-5.1) mmol/L Chloride 113 H (98-107) mmol/L Carbon Dioxide 19 L (22-30) mmol/L Creatinine 1.37 H (0.66-1.25) mg/dL Glucose 135 H (74-99) mg/dL POC Glucose (mg/dL) 140 H (70-110) mg/dL Calcium 7.1 L (8.4-10.2) mg/dL Magnesium (1.6-2.3) mg/dL Total Protein 5.0 L (6.3-8.2) g/dL Albumin 3.2 L (3.5-5.0) g/dL Arterial Blood Potassium (3.4-4.5) mmol/L Arterial Blood Glucose (75-99) mg/dL Crossmatch 04/12/22 04/12/22 04/12/22 Range/Units 03:10 04:25 05:10 WBC (3.8-10.6) k/uL RBC (4.30-5.90) m/uL Hgb (13.0-17.5) gm/dL Hct (39.0-53.0) % MCH (25.0-35.0) pg MCHC (31.0-37.0) g/dL RDW (11.5-15.5) % Plt Count (150-450) k/uL Neutrophils # (1.3-7.7) k/uL Lymphocytes # (1.0-4.8) k/uL PT (9.0-12.0) sec INR (<1.2) APTT (22.0-30.0) sec ABG pH (7.35-7.45) ABG pCO2 (35-45) mmHg ABG pO2 (83-108) mmHg ABG HCO3 (21-25) mmol/L ABG Total CO2 (19-24) mmol/L ABG O2 Saturation (94-97) % ABG Hematocrit (34.0-46.0) % ABG Potassium (3.4-4.5) mmol/L ABG Ionized Calcium (4.5-5.3) mg/dL ABG Glucose (75-99) mg/dL ABG Lactic Acid (0.5-1.6) mmol/L VBG pCO2 29 L (37-51) mmHg VBG HCO3 17 L (24-28) mmol/L Hemoglobin (13.0-17.5) gm/dL Potassium (3.5-5.1) mmol/L Chloride (98-107) mmol/L Carbon Dioxide (22-30) mmol/L Creatinine (0.66-1.25) mg/dL Glucose (74-99) mg/dL POC Glucose (mg/dL) 142 H 144 H (70-110) mg/dL Calcium (8.4-10.2) mg/dL Magnesium (1.6-2.3) mg/dL Total Protein (6.3-8.2) g/dL Albumin (3.5-5.0) g/dL Arterial Blood Potassium (3.4-4.5) mmol/L Arterial Blood Glucose (75-99) mg/dL Crossmatch 04/12/22 04/12/22 04/12/22 Range/Units 06:05 07:08 08:13 WBC (3.8-10.6) k/uL RBC (4.30-5.90) m/uL Hgb (13.0-17.5) gm/dL Hct (39.0-53.0) % MCH (25.0-35.0) pg MCHC (31.0-37.0) g/dL RDW (11.5-15.5) % Plt Count (150-450) k/uL Neutrophils # (1.3-7.7) k/uL Lymphocytes # (1.0-4.8) k/uL PT (9.0-12.0) sec INR (<1.2) APTT (22.0-30.0) sec ABG pH (7.35-7.45) ABG pCO2 (35-45) mmHg ABG pO2 (83-108) mmHg ABG HCO3 (21-25) mmol/L ABG Total CO2 (19-24) mmol/L ABG O2 Saturation (94-97) % ABG Hematocrit (34.0-46.0) % ABG Potassium (3.4-4.5) mmol/L ABG Ionized Calcium (4.5-5.3) mg/dL ABG Glucose (75-99) mg/dL ABG Lactic Acid (0.5-1.6) mmol/L VBG pCO2 (37-51) mmHg VBG HCO3 (24-28) mmol/L Hemoglobin (13.0-17.5) gm/dL Potassium (3.5-5.1) mmol/L Chloride (98-107) mmol/L Carbon Dioxide (22-30) mmol/L Creatinine (0.66-1.25) mg/dL Glucose (74-99) mg/dL POC Glucose (mg/dL) 159 H 157 H 150 H (70-110) mg/dL Calcium (8.4-10.2) mg/dL Magnesium (1.6-2.3) mg/dL Total Protein (6.3-8.2) g/dL Albumin (3.5-5.0) g/dL Arterial Blood Potassium (3.4-4.5) mmol/L Arterial Blood Glucose (75-99) mg/dL Crossmatch 04/12/22 04/12/22 Range/Units 09:25 10:14 WBC (3.8-10.6) k/uL RBC (4.30-5.90) m/uL Hgb (13.0-17.5) gm/dL Hct (39.0-53.0) % MCH (25.0-35.0) pg MCHC (31.0-37.0) g/dL RDW (11.5-15.5) % Plt Count (150-450) k/uL Neutrophils # (1.3-7.7) k/uL Lymphocytes # (1.0-4.8) k/uL PT (9.0-12.0) sec INR (<1.2) APTT (22.0-30.0) sec ABG pH (7.35-7.45) ABG pCO2 (35-45) mmHg ABG pO2 (83-108) mmHg ABG HCO3 (21-25) mmol/L ABG Total CO2 (19-24) mmol/L ABG O2 Saturation (94-97) % ABG Hematocrit (34.0-46.0) % ABG Potassium (3.4-4.5) mmol/L ABG Ionized Calcium (4.5-5.3) mg/dL ABG Glucose (75-99) mg/dL ABG Lactic Acid (0.5-1.6) mmol/L VBG pCO2 (37-51) mmHg VBG HCO3 (24-28) mmol/L Hemoglobin (13.0-17.5) gm/dL Potassium (3.5-5.1) mmol/L Chloride (98-107) mmol/L Carbon Dioxide (22-30) mmol/L Creatinine (0.66-1.25) mg/dL Glucose (74-99) mg/dL POC Glucose (mg/dL) 157 H 153 H (70-110) mg/dL Calcium (8.4-10.2) mg/dL Magnesium (1.6-2.3) mg/dL Total Protein (6.3-8.2) g/dL Albumin (3.5-5.0) g/dL Arterial Blood Potassium (3.4-4.5) mmol/L Arterial Blood Glucose (75-99) mg/dL Crossmatch Assessment and Plan Assessment: Coronary artery disease status post coronary artery bypass grafting 4 with a SANTA to the LAD, left radial artery graft to the first obtuse marginal, saphenous vein graft to the first diagonal, saphenous vein graft to the posterior lateral branch of the RCA. Left atrial appendage clip. Postoperative day #1. Hypoxemic respiratory failure secondary to above, expected outcome of surgery, improved and currently on 6 L high flow nasal cannula Anemia, expected outcome of surgery, current hemoglobin 8.0 Hypertension, history of Hyperlipidemia History of melanoma of the left eyelid, resected Leonard's esophagus Parkinson tremors Former smoker, quit 30 years ago Chronic obstructive pulmonary disease Plan: The patient was seen and evaluated Chest x-ray, labs and medications reviewed Did require BiPAP for approximately 3 hours Currently on 6 L high flow nasal cannula Titrate the FiO2 as tolerated Encourage increased use of the incentive spirometer Increase his activity as tolerated We'll continue to follow I have personally seen and examined the patient, performed the documentation and the assessment and plan as written. Number of minutes spent on the visit: 10.
[2022-04-12 11:15] LABS: Glucose,Whole Blood 164 mg/dL (70-110)
--- NOTE | 2022-04-12 11:57 | CONS ---
CONSULTATION HISTORY OF PRESENT ILLNESS: This is a gentleman with a history of CAD, hypertension, hyperlipidemia, he also has history of probable sleep apnea, Leonard's esophagus, history of cirrhosis of the liver in the past. Yesterday, he underwent aortocoronary bypass surgery off pump with SANTA to LAD, free radial artery graft to the first obtuse marginal and vein graft to the diagonal and also the PLV branch of RCA. Post procedure, he has been extubated, but was quite acidotic, requiring fluids and sodium bicarb. He feels somewhat better today. He has also received some IV fluids. Urine output is fair. He is maintaining sinus rhythm. He appears to be reasonably comfortable this morning, hemodynamically stable this morning. He has multiple comorbid conditions. He was slightly acidotic this morning and he is maintaining sinus rhythm. His cardiac index is about 2.8. PHYSICAL EXAMINATION: VITAL SIGNS: On examination, blood pressure is about 104/60, pulse rate is about 80, sinus. HEENT: Unremarkable. Fundus was not examined. HEART: S1, S2 were heard normally, but distantly short systolic murmur. LUNGS: Reveal bilateral diminished air entry. ABDOMEN: Soft. LOWER EXTREMITIES: Exam was not performed. CENTRAL NERVOUS SYSTEM: Grossly no focal deficits. IMPRESSION: 1. Status post aortocoronary bypass surgery yesterday. 2. Hypoxemia, which has improved. 3. Acidosis, which has also improved. 4. Hypertension. 5. Hyperlipidemia. 6. Probable chronic obstructive pulmonary disease and obstructive sleep apnea. RECOMMENDATIONS: I agree with fluid administration and also a stenosis issue is being evaluated by the Back End Engineer. Cardiac-corado, no new suggestions. Would continue incentive spirometry and pulmonary toilet. Prognosis remains guarded. MMODL / IJN: [id number] /
[2022-04-12 12:11] LABS: Glucose,Whole Blood 162 mg/dL (70-110)
[2022-04-12 13:09] LABS: Glucose,Whole Blood 154 mg/dL (70-110)
[2022-04-12 14:12] LABS: Glucose,Whole Blood 131 mg/dL (70-110)
[2022-04-12 15:24] LABS: Glucose,Whole Blood 126 mg/dL (70-110)
[2022-04-12 16:55] LABS: Glucose,Whole Blood 106 mg/dL (70-110)
[2022-04-12] MEDS: PANTOPRAZOLE 40 MG TABLET PO SCH (16:58)
[2022-04-12] MEDS: FERROUS SULFATE 325 MG TAB PO SCH (16:58)
[2022-04-12 18:57] LABS: Glucose,Whole Blood 121 mg/dL (70-110)
[2022-04-12] MEDS: AMIODARONE 200 MG TAB PO SCH (20:21)
[2022-04-12] MEDS: ASPIRIN 81 MG PO SCH (20:22)
[2022-04-12] MEDS: ATORVASTATIN 40 MG TAB PO SCH (20:22)
[2022-04-12] MEDS: SENNOSIDES-DOCUSATE SODIUM 1 EACH TAB PO SCH (20:23)
[2022-04-12] MEDS: PRIMIDONE 250 MG TAB PO SCH (20:25)
[2022-04-12 21:03] LABS: Glucose,Whole Blood 123 mg/dL (70-110)
[2022-04-12 23:07] LABS: Glucose,Whole Blood 125 mg/dL (70-110)
[2022-04-13 00:04] LABS: Glucose,Whole Blood 98 mg/dL (70-110)
[2022-04-13] MEDS: INSULIN REGULAR 100 UNIT in SODIUM CHLORIDE 0.9% 100 ML IV SCH (00:04)
[2022-04-13 00:59] LABS: Glucose,Whole Blood 110 mg/dL (70-110)
[2022-04-13 02:00] LABS: Glucose,Whole Blood 88 mg/dL (70-110)
[2022-04-13] MEDS: DOPamine DRIP 800 MG in DEXTROSE/WATER 1 250ML.BAG IV SCH (02:09)
[2022-04-13] MEDS: IPRATROPIUM-ALBUTEROL 3 ML NEB INHALATION PRN ×2 (02:48→23:53)
[2022-04-13] MEDS: ACETAMINOPHEN IV (For NPO) 1,000 MG in EMPTY BAG 1 BAG IVPB SCH (02:56)
[2022-04-13 03:20] LABS: Glucose,Whole Blood 127 mg/dL (70-110)
[2022-04-13 03:59] LABS: Glucose,Whole Blood 150 mg/dL (70-110)
[2022-04-13 04:41] LABS: Ionized Calcium 4.6 mg/dL (4.5-5.3)
[2022-04-13 04:55] LABS: Glucose,Whole Blood 136 mg/dL (70-110)
[2022-04-13 04:56] LABS: Albumin 3.5 g/dL (3.5-5.0); Calcium 7.6 mg/dL (8.4-10.2); Magnesium 2.3 mg/dL (1.6-2.3); Potassium 4.6 mmol/L (3.5-5.1); Total Bilirubin 0.9 mg/dL (0.2-1.3)
[2022-04-13 05:02] LABS: Anisocytosis Slight; Basophils % (A) 0 %; Eosinophils # (A) 0.1 k/uL (0-0.7); Eosinophils % (A) 1 %; HCT 21.7 % (39.0-53.0); Hypochromasia Marked; Lymphocytes # (A) 0.8 k/uL (1.0-4.8); Lymphocytes % (A) 6 %; MCH 25.4 pg (25.0-35.0); MCHC 31.2 g/dL (31.0-37.0); MCV 81.4 fL (80.0-100.0); Monocytes # (A) 0.4 k/uL (0-1.0); Monocytes % (A) 4 %; Neutrophils # (A) 11.1 k/uL (1.3-7.7); Neutrophils % (A) 88 %; Platelet Count 101 k/uL (150-450); Poikilocytosis Slight; RBC 2.67 m/uL (4.30-5.90); RDW 16.6 % (11.5-15.5); WBC 12.5 k/uL (3.8-10.6)
[2022-04-13 05:13] LABS: HGB 6.8 gm/dL (13.0-17.5)
[2022-04-13 05:32] LABS: Anisocytosis Slight; Basophils % (A) 0 %; Eosinophils # (A) 0.2 k/uL (0-0.7); Eosinophils % (A) 1 %; HCT 22.8 % (39.0-53.0); Hypochromasia Marked; Lymphocytes % (A) 7 %; MCH 25.1 pg (25.0-35.0); MCHC 30.7 g/dL (31.0-37.0); MCV 81.7 fL (80.0-100.0); Mean Platelet Volume 8.1; Monocytes # (A) 0.6 k/uL (0-1.0); Monocytes % (A) 4 %; Neutrophils # (A) 13.8 k/uL (1.3-7.7); Neutrophils % (A) 87 %; Platelet Count 125 k/uL (150-450); Poikilocytosis Slight; RBC 2.79 m/uL (4.30-5.90); RDW 16.8 % (11.5-15.5); WBC 15.8 k/uL (3.8-10.6)
[2022-04-13 05:57] LABS: Glucose,Whole Blood 127 mg/dL (70-110)
[2022-04-13] MEDS: SODIUM CHLORIDE 0.9% 1,000 ML IV SCH (05:57)
[2022-04-13] MEDS: MAGNESIUM HYDROXIDE 2,400 MG/10 ML CUP PO PRN (07:00)
[2022-04-13 07:04] LABS: Glucose,Whole Blood 118 mg/dL (70-110)
[2022-04-13] MEDS: FERROUS SULFATE 325 MG TAB PO SCH ×2 (07:07→16:53)
[2022-04-13] MEDS: PANTOPRAZOLE 40 MG TABLET PO SCH ×2 (07:07→16:53)
--- NOTE | 2022-04-13 07:07 | XR ---
EXAMINATION TYPE: XR chest 1V portable DATE OF EXAM: 04/13/2022 5:29 AM COMPARISON: Chest radiograph from one day prior. TECHNIQUE: XR chest 1V portable Portable AP radiograph of the chest. CLINICAL INDICATION:Male, 77 years old with history of Post Operative Cardiac Surgery; FINDINGS: Lungs/Pleura: There is no evidence of pleural effusion, focal consolidation, or pneumothorax. Pulmonary vascularity: Unremarkable. Heart/mediastinum: Cardiomediastinal silhouette is unremarkable. Musculoskeletal: No acute osseous pathology. Midline sternotomy wires are noted. Other findings: None Lines/Tubes: Drainage tubes with tips projecting over the mediastinum. Left thoracotomy tube is present without evidence of pneumothorax. There is a [place]Javi catheter with tip projecting over the spine. IMPRESSION: 1. Stable postsurgical changes 2. Stable support lines and tubes.
[2022-04-13] MEDS: CHOLECALCIFEROL 25 MCG (1000 IU) TABLET PO SCH (08:13)
[2022-04-13] MEDS: PRIMIDONE 250 MG TAB PO SCH ×2 (08:13→20:16)
[2022-04-13] MEDS: HEPARIN SODIUM,PORCINE/PF 5,000 UNIT/0.5 ML SYRINGE SQ SCH ×3 (08:13→23:31)
[2022-04-13] MEDS: METOPROLOL TARTRATE 12.5 MG TAB PO SCH (08:13)
[2022-04-13] MEDS: DULoxetine HCL 60 MG CAPSULE.DR PO SCH (08:14)
[2022-04-13] MEDS: AMIODARONE 200 MG TAB PO SCH ×2 (08:14→20:15)
[2022-04-13] MEDS: ASCORBIC ACID 500 MG TAB PO SCH (08:14)
[2022-04-13] MEDS: CLOPIDOGREL 75 MG TAB PO SCH (08:14)
[2022-04-13 08:21] LABS: Glucose,Whole Blood 102 mg/dL (70-110)
--- NOTE | 2022-04-13 08:39 | P.PN ---
Subjective Progress Note Date: 04/13/22 Principal diagnosis: Coronary artery disease. Previous medical history of hypertension, hyperlipidemia, insulin-dependent diabetes, previous tobacco dependence, mild COPD, asthma, liver cirrhosis, Leonard's esophagus, PAD, melanoma skin cancer, chronic iron deficiency anemia, essential tremors, depression, and family history of coronary artery disease POD #2 off-pump coronary artery bypass grafting 4 with left internal mammary artery to the left anterior descending artery, left radial artery graft to the first obtuse marginal artery, reverse saphenous vein graft to the first diagonal artery, reverse saphenous vein graft to the posterior lateral branch of the right coronary artery, ligation of the left atrial appendage with a 35 mm AtriCure clamp, endovascular vein harvest of bilateral greater saphenous vein and endovascular left radial artery harvest. Intraoperative transesophageal echocardiogram performed by anesthesia. Postoperative acute blood loss anemia, expected given hemodilution and preoperative anemia The patient was seen and examined this morning sitting up in a recliner on the intensive care unit in no acute distress. Remains in sinus rhythm, blood pressure soft, remains on IV dopamine. Denies chest pain, shortness of breath. Oriented to person and place only, pleasantly confused, impulsive, does follow all commands. Right internal jugular Weston/Cordis, right radial arterial line, mediastinal/left pleural chest tubes all remain. Labs and chest x-ray reviewed, Hgb 7.0 this am, dilutional. Rounded with Dr. Dorman. Objective - Vital Signs Vital signs: Vital Signs Temp 98.6 F 04/13/22 04:00 Pulse 73 04/13/22 07:00 Resp 20 04/13/22 07:00 BP 122/77 04/13/22 07:00 Pulse Ox 97 04/13/22 07:00 FiO2 50 04/12/22 05:00 Intake & Output 04/12/22 04/13/22 04/13/22 18:59 06:59 18:59 Intake Total 3221.885 1085.995 70.225 Output Total 635 640 30 Balance 2586.885 445.995 40.225 Weight 113.8 kg 114.9 kg Intake: IV 978 979 60 .9NS Cardiac Output 70 60 0.9NS Pressure Bag 108 119 10 ACETAMINOPHEN IV (For NPO 200 200 ) 1,000 mg In Empty Bag 1 bag @ 400 mls/hr IVPB Q6HR [facility] Rx#:[id number] Sodium Chloride 0.9% 1, 550 600 50 000 ml @ 50 mls/hr IV . Q20H [facility] Rx#:[id number] ceFAZolin 2 gm In Sodium 50 Chloride 0.9% 50 ml @ 100 mls/hr IVPB Q8HR [facility] Rx# :[id number] Intake, IV Titration 1643.885 106.995 10.225 Amount Albumin Human 5% 250 ml @ 1000 0 mls/hr IVPB .[facility] Rx#:[id number] Albumin Human 5% 250 ml 250 In Empty Bag 1 bag @ 250 mls/hr IVPB Q1HR [facility] Rx#: [id number] Amiodarone 450 mg In 300.839 Dextrose 5% in Water 250 ml @ 0.5 MG/MIN 16.667 mls/hr IV .Q15H [facility] Rx#: [id number] DOPamine DRIP 800 mg In 39.138 93.319 Dextrose/Water 1 250ml. bag @ 2 MCG/KG/MIN 4.084 mls/hr IV .Q24H [facility] Rx#: [id number] Insulin Regular 100 unit 53.908 13.676 10.225 In Sodium Chloride 0.9% 100 ml @ Per Protocol IV .Q0M [facility] Rx#:[id number] Oral 600 Output: Chest Tube Drainage 390 220 Mediastinal and Left 390 220 Pleual Urine 245 420 30 Other: Voiding Method Indwelling Catheter Indwelling Catheter ABP, PAP, CO, CI - Last Documented Arterial Blood Pressure 96/62 Pulmonary Artery Pressure 25/8 Cardiac Output 7.4 Cardiac Index 3.4 - Exam CONSTITUTIONAL: Appears comfortable, cooperative, no acute distress RESPIRATORY: Lungs sounds diminished bilaterally. Respirations even, nonlabored. Currently on 6 L hi flow NC with oxygen saturation 98%. Able to achieve 6621-4217 mL on incentive spirometry. Strong loose cough. CARDIOVASCULAR: S1, S2 present. Regular rate and rhythm, sinus rhythm on telemetry. Sternum stable. Palpable peripheral pulses bilaterally. Generalized edema present, upper extremities greater than lower extremities. No calf pain or tenderness noted. Heart hugger in place with patient occasionally demonstrating appropriate use when instructed. Antiembolism stockings, SCDs present. GASTROINTESTINAL: Abdomen soft, nontender, nondistended. Active bowel sounds present 4 quadrants. Tolerating minimal diet. Positive flatus GENITOURINARY: Woods present draining clear, yellow urine. Output overnight 30-45 mL per hour, 665 mL in the last 24 hours INTEGUMENTARY: Skin is warm and dry. Anterior chest incision well approximated and covered with dry intact dressing. Bilateral lower extremity EVH sites well approximated without redness NEUROLOGIC: Cranial nerves II through XII intact MUSKULOSKELETAL: Able to move all extremities, strength equal bilaterally PSYCHIATRIC: Alert and oriented to person place and time, appropriate affect, intact judgment and insight INVASIVE LINES AND TUBES: Mediastinal/left pleural chest tubes present and connected to wall suction, no air leaks present, 220 mL serosanguineous drainage overnight, 610 mL in the last 24 hours. Right internal jugular Weston/Cordis, right radial arterial line present. Last CO/CI 7.4/3.4, PA 28/10, CVP 11. - Allied health notes Allied health notes reviewed: nursing - Labs CBC & Chem 7: 04/13/22 05:20 04/13/22 04:00 Labs: Abnormal Lab Results - Last 24 Hours (Table) 04/12/22 04/12/22 04/12/22 Range/Units 09:25 10:14 11:14 WBC (3.8-10.6) k/uL RBC (4.30-5.90) m/uL Hgb (13.0-17.5) gm/dL Hct (39.0-53.0) % MCHC (31.0-37.0) g/dL RDW (11.5-15.5) % Plt Count (150-450) k/uL Neutrophils # (1.3-7.7) k/uL Lymphocytes # (1.0-4.8) k/uL Sodium (137-145) mmol/L Chloride (98-107) mmol/L Carbon Dioxide (22-30) mmol/L BUN (9-20) mg/dL Creatinine (0.66-1.25) mg/dL Glucose (74-99) mg/dL POC Glucose (mg/dL) 157 H 153 H 164 H (70-110) mg/dL Calcium (8.4-10.2) mg/dL AST (17-59) U/L Total Protein (6.3-8.2) g/dL 11/15/22 11/15/22 11/15/22 Range/Units 12:09 13:09 14:10 WBC (3.8-10.6) k/uL RBC (4.30-5.90) m/uL Hgb (13.0-17.5) gm/dL Hct (39.0-53.0) % MCHC (31.0-37.0) g/dL RDW (11.5-15.5) % Plt Count (150-450) k/uL Neutrophils # (1.3-7.7) k/uL Lymphocytes # (1.0-4.8) k/uL Sodium (137-145) mmol/L Chloride (98-107) mmol/L Carbon Dioxide (22-30) mmol/L BUN (9-20) mg/dL Creatinine (0.66-1.25) mg/dL Glucose (74-99) mg/dL POC Glucose (mg/dL) 162 H 154 H 131 H (70-110) mg/dL Calcium (8.4-10.2) mg/dL AST (17-59) U/L Total Protein (6.3-8.2) g/dL 04/12/22 04/12/22 04/12/22 Range/Units 15:22 18:55 21:02 WBC (3.8-10.6) k/uL RBC (4.30-5.90) m/uL Hgb (13.0-17.5) gm/dL Hct (39.0-53.0) % MCHC (31.0-37.0) g/dL RDW (11.5-15.5) % Plt Count (150-450) k/uL Neutrophils # (1.3-7.7) k/uL Lymphocytes # (1.0-4.8) k/uL Sodium (137-145) mmol/L Chloride (98-107) mmol/L Carbon Dioxide (22-30) mmol/L BUN (9-20) mg/dL Creatinine (0.66-1.25) mg/dL Glucose (74-99) mg/dL POC Glucose (mg/dL) 126 H 121 H 123 H (70-110) mg/dL Calcium (8.4-10.2) mg/dL AST (17-59) U/L Total Protein (6.3-8.2) g/dL 04/12/22 04/13/22 04/13/22 Range/Units 23:06 03:18 03:56 WBC (3.8-10.6) k/uL RBC (4.30-5.90) m/uL Hgb (13.0-17.5) gm/dL Hct (39.0-53.0) % MCHC (31.0-37.0) g/dL RDW (11.5-15.5) % Plt Count (150-450) k/uL Neutrophils # (1.3-7.7) k/uL Lymphocytes # (1.0-4.8) k/uL Sodium (137-145) mmol/L Chloride (98-107) mmol/L Carbon Dioxide (22-30) mmol/L BUN (9-20) mg/dL Creatinine (0.66-1.25) mg/dL Glucose (74-99) mg/dL POC Glucose (mg/dL) 125 H 127 H 150 H (70-110) mg/dL Calcium (8.4-10.2) mg/dL AST (17-59) U/L Total Protein (6.3-8.2) g/dL 04/13/22 04/13/22 04/13/22 Range/Units 04:00 04:00 04:53 WBC 12.5 H (3.8-10.6) k/uL RBC 2.67 L (4.30-5.90) m/uL Hgb 6.8 L* (13.0-17.5) gm/dL Hct 21.7 L (39.0-53.0) % MCHC (31.0-37.0) g/dL RDW 16.6 H (11.5-15.5) % Plt Count 101 L (150-450) k/uL Neutrophils # 11.1 H (1.3-7.7) k/uL Lymphocytes # 0.8 L (1.0-4.8) k/uL Sodium 134 L (137-145) mmol/L Chloride 108 H (98-107) mmol/L Carbon Dioxide 16 L (22-30) mmol/L BUN 28 H (9-20) mg/dL Creatinine 1.86 H (0.66-1.25) mg/dL Glucose 138 H (74-99) mg/dL POC Glucose (mg/dL) 136 H (70-110) mg/dL Calcium 7.6 L (8.4-10.2) mg/dL AST 65 H (17-59) U/L Total Protein 5.0 L (6.3-8.2) g/dL 04/13/22 04/13/22 04/13/22 Range/Units 05:20 05:54 07:03 WBC 15.8 H (3.8-10.6) k/uL RBC 2.79 L (4.30-5.90) m/uL Hgb 7.0 L (13.0-17.5) gm/dL Hct 22.8 L (39.0-53.0) % MCHC 30.7 L (31.0-37.0) g/dL RDW 16.8 H (11.5-15.5) % Plt Count 125 L (150-450) k/uL Neutrophils # 13.8 H (1.3-7.7) k/uL Lymphocytes # (1.0-4.8) k/uL Sodium (137-145) mmol/L Chloride (98-107) mmol/L Carbon Dioxide (22-30) mmol/L BUN (9-20) mg/dL Creatinine (0.66-1.25) mg/dL Glucose (74-99) mg/dL POC Glucose (mg/dL) 127 H 118 H (70-110) mg/dL Calcium (8.4-10.2) mg/dL AST (17-59) U/L Total Protein (6.3-8.2) g/dL - Imaging and Cardiology Chest x-ray: report reviewed, image reviewed Assessment and Plan Assessment: 1. Coronary artery disease, status post four-vessel off-pump CABG 2. History of hypertension, currently hypotensive on dopamine 3. Hyperlipidemia, treated, cholesterol 157, LDL 85, triglycerides 169 4. Insulin-dependent diabetes, preoperative hemoglobin A1c 9.4% 5. Previous tobacco dependence 6. Mild COPD, preoperative FEV1 62% of predicted 7. Asthma 8. Liver cirrhosis 9. Leonard's esophagus 10. PAD 11. Melanoma skin cancer 12. Chronic iron deficiency anemia 13. Essential tremors 14. Depression 15. Family history of coronary artery disease 16. Postoperative acute blood loss anemia, expected given hemodilution and preoperative anemia Plan: 1. Continue aspirin, statin, Plavix, beta yolette therapy. Will increase beta yolette therapy as tolerated 2. Continue dopamine for another 24 hours 3. Will start oral calcium channel yolette when blood pressure able to tolerate for radial artery spasm prophylaxis 4. Continue amiodarone for A. fib prophylaxis, ChadsVasc 5 5. Wean O2 as tolerated. Encourage incentive spirometry is 10 times every hour while awake. Bronchodilators per pulmonology 6. Increase activity, ambulate as tolerated. PT/OT/cardiac rehab consulted 7. Will monitor daily labs and x-rays. Electronic replacement per protocol 8. GI/DVT prophylaxis 9. Insulin management per primary care service. Patient is diabetic, normally on insulin pump 10. Pain control with current medication regimen. Avoid narcotics 11. Discontinue Weston, continue Cordis for another 24 hours 12. Will discontinue mediastinal chest tube, continue left pleural chest tubes for another 24 hours 13. Continue Woods catheter for another 24 hours for strict accurate intake and output 14. Daily weights 15. More recommendations to follow
[2022-04-13] MEDS: IPRATROPIUM-ALBUTEROL 3 ML NEB INHALATION SCH ×4 (09:49→19:21)
[2022-04-13] MEDS: SYMBICORT 160-4.5 MCG INHALER INHALATION SCH ×2 (09:49→19:21)
--- NOTE | 2022-04-13 10:36 | P.PN ---
Subjective Progress Note Date: 04/13/22 Principal diagnosis: CABG Hospital Course: tiffany is a 77-year-old male with multivessel coronary artery disease, cirrhosis, insulin-dependent diabetes on insulin pump, peripheral vascular disease, history of rectal bleeding, Leonard's esophagus, iron deficiency anemi a, melanoma, asthma, depression, former nicotine dependence, occasional alcohol use presenting for elective CABG. He is now status post surgery. CABG 4 with SANTA to LAD, left radial artery graft to first obtuse margin, saphenous vein graft to first diagonal, saphenous vein graft to posterior lateral branch of the RCA. Also had left atrial appendage ligation. [facility] physicians has been consulted for medical management. Patient was initially intubated and sedated. No extubated, on nasal cannula. Not on sedation. Continues to have left chest tube, and urinary catheter. Currently requiring dopamine drip. Subjective: Patient seen and examined bedside. Per nursing, patient was slightly confused overnight. He is now awake and alert, denies any significant pain. He denies any significant respiratory distress, chest pain, abdominal pain, nausea, vomiting, diarrhea, or constipation. He continues to have urinary catheter. He was able to tolerate oral fluids, and had about 25% of his breakfast. Pertinent positives and negatives as discussed above, a complete review of systems was performed and all other systems are negative. Vitals Signs Reviewed. General: Obese, not in acute distress, sitting in chair Derm: warm, dry, midline sternal dressing, clean dry and intact, right chest tube Head: atraumatic, normocephalic, symmetric Eyes: anicteric sclera, pupils equal round reactive to light, EOMI ENT: Nose and ears atraumatic Neck: No thyromegaly, supple Mouth: no lip lesion, mucus membranes moist Cardiovascular: S1S2 reg, no murmur, no edema Lungs: CTAB, no wheeze, no accessory muscle use, 6 L nasal cannula Abdominal: soft, nondistended, normoactive bowel sounds Ext: no gross muscle atrophy Neuro: CN II-XII grossly intact Psych: Alert, oriented, appropriate affect Assessment and Plan: Severe multivessel coronary artery disease Status post CABG 4 -Post CABG 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, 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 -Now extubated -Aspirin and Plavix, and statin -Amiodarone drip and transitioned to oral -Also on dopamine gtt -Pain control and antiemetics -Subcu heparin for DVT prophylaxis Insulin-dependent diabetes, on insulin pump -Hold off using insulin pump at the moment -Insulin drip transition to SSI Hx of Hypertension, currently hypotensive -hold isosorbide -on dopamine gtt, continue to wean Leukocytosis Likely reactive, improving Acute kidney injury -Nonoliguric -Likely prerenal given postop and being on pressors -Continue to monitor urine output and renal function -If continues to worsen, consider nephrology consult History of cirrhosis History of Leonard's esophagus History of iron deficiency anemia -Continue to monitor for any GI bleed -Protonix Asthma -Home inhalers Thank you for allowing us to participate in the care of this pleasant patient. Do not hesitate to contact us with questions. Someone can be reached from the [facility] hospitalist group all hours of the day at [phone] or via [employer]. Objective - Vital Signs Vital signs: Vital Signs Temp 99.0 F 04/13/22 08:00 Pulse 73 04/13/22 10:01 Resp 17 04/13/22 10:00 BP 114/62 04/13/22 10:00 Pulse Ox 96 04/13/22 10:00 FiO2 50 04/12/22 05:00 Intake & Output 04/12/22 04/13/22 04/13/22 18:59 06:59 18:59 Intake Total 3221.885 1085.995 188.225 Output Total 635 640 30 Balance 2586.885 445.995 158.225 Weight 113.8 kg 114.9 kg Intake: IV 978 979 60 .9NS Cardiac Output 70 60 0.9NS Pressure Bag 108 119 10 ACETAMINOPHEN IV (For NPO 200 200 ) 1,000 mg In Empty Bag 1 bag @ 400 mls/hr IVPB Q6HR [facility] Rx#:[id number] Sodium Chloride 0.9% 1, 550 600 50 000 ml @ 50 mls/hr IV . Q20H [facility] Rx#:[id number] ceFAZolin 2 gm In Sodium 50 Chloride 0.9% 50 ml @ 100 mls/hr IVPB Q8HR [facility] Rx# :[id number] Intake, IV Titration 1643.885 106.995 10.225 Amount Albumin Human 5% 250 ml @ 1000 0 mls/hr IVPB [facility] Rx#:[id number] Albumin Human 5% 250 ml 250 In Empty Bag 1 bag @ 250 mls/hr IVPB Q1HR [facility] Rx#: [id number] Amiodarone 450 mg In 300.839 Dextrose 5% in Water 250 ml @ 0.5 MG/MIN 16.667 mls/hr IV .Q15H [facility] Rx#: [id number] DOPamine DRIP 800 mg In 39.138 93.319 Dextrose/Water 1 250ml. bag @ 2 MCG/KG/MIN 4.084 mls/hr IV .Q24H [facility] Rx#: [id number] Insulin Regular 100 unit 53.908 13.676 10.225 In Sodium Chloride 0.9% 100 ml @ Per Protocol IV .Q0M [facility] Rx#:[id number] Oral 600 118 Output: Chest Tube Drainage 390 220 Mediastinal and Left 390 220 Pleual Urine 245 420 30 Other: Voiding Method Indwelling Catheter Indwelling Catheter ABP, PAP, CO, CI - Last Documented Arterial Blood Pressure 73/48 Pulmonary Artery Pressure 38/5 Cardiac Output 5.5 Cardiac Index 2.5 - Labs CBC & Chem 7: 04/13/22 05:20 04/13/22 04:00 Labs: Abnormal Lab Results - Last 24 Hours (Table) 04/12/22 04/12/22 04/12/22 Range/Units 11:14 12:09 13:09 WBC (3.8-10.6) k/uL RBC (4.30-5.90) m/uL Hgb (13.0-17.5) gm/dL Hct (39.0-53.0) % MCHC (31.0-37.0) g/dL RDW (11.5-15.5) % Plt Count (150-450) k/uL Neutrophils # (1.3-7.7) k/uL Lymphocytes # (1.0-4.8) k/uL Sodium (137-145) mmol/L Chloride (98-107) mmol/L Carbon Dioxide (22-30) mmol/L BUN (9-20) mg/dL Creatinine (0.66-1.25) mg/dL Glucose (74-99) mg/dL POC Glucose (mg/dL) 164 H 162 H 154 H (70-110) mg/dL Calcium (8.4-10.2) mg/dL AST (17-59) U/L Total Protein (6.3-8.2) g/dL 04/12/22 04/12/22 04/12/22 Range/Units 14:10 15:22 18:55 WBC (3.8-10.6) k/uL RBC (4.30-5.90) m/uL Hgb (13.0-17.5) gm/dL Hct (39.0-53.0) % MCHC (31.0-37.0) g/dL RDW (11.5-15.5) % Plt Count (150-450) k/uL Neutrophils # (1.3-7.7) k/uL Lymphocytes # (1.0-4.8) k/uL Sodium (137-145) mmol/L Chloride (98-107) mmol/L Carbon Dioxide (22-30) mmol/L BUN (9-20) mg/dL Creatinine (0.66-1.25) mg/dL Glucose (74-99) mg/dL POC Glucose (mg/dL) 131 H 126 H 121 H (70-110) mg/dL Calcium (8.4-10.2) mg/dL AST (17-59) U/L Total Protein (6.3-8.2) g/dL 04/12/22 04/12/22 04/13/22 Range/Units 21:02 23:06 03:18 WBC (3.8-10.6) k/uL RBC (4.30-5.90) m/uL Hgb (13.0-17.5) gm/dL Hct (39.0-53.0) % MCHC (31.0-37.0) g/dL RDW (11.5-15.5) % Plt Count (150-450) k/uL Neutrophils # (1.3-7.7) k/uL Lymphocytes # (1.0-4.8) k/uL Sodium (137-145) mmol/L Chloride (98-107) mmol/L Carbon Dioxide (22-30) mmol/L BUN (9-20) mg/dL Creatinine (0.66-1.25) mg/dL Glucose (74-99) mg/dL POC Glucose (mg/dL) 123 H 125 H 127 H (70-110) mg/dL Calcium (8.4-10.2) mg/dL AST (17-59) U/L Total Protein (6.3-8.2) g/dL 04/13/22 04/13/22 04/13/22 Range/Units 03:56 04:00 04:00 WBC 12.5 H (3.8-10.6) k/uL RBC 2.67 L (4.30-5.90) m/uL Hgb 6.8 L* (13.0-17.5) gm/dL Hct 21.7 L (39.0-53.0) % MCHC (31.0-37.0) g/dL RDW 16.6 H (11.5-15.5) % Plt Count 101 L (150-450) k/uL Neutrophils # 11.1 H (1.3-7.7) k/uL Lymphocytes # 0.8 L (1.0-4.8) k/uL Sodium 134 L (137-145) mmol/L Chloride 108 H (98-107) mmol/L Carbon Dioxide 16 L (22-30) mmol/L BUN 28 H (9-20) mg/dL Creatinine 1.86 H (0.66-1.25) mg/dL Glucose 138 H (74-99) mg/dL POC Glucose (mg/dL) 150 H (70-110) mg/dL Calcium 7.6 L (8.4-10.2) mg/dL AST 65 H (17-59) U/L Total Protein 5.0 L (6.3-8.2) g/dL 04/13/22 04/13/22 04/13/22 Range/Units 04:53 05:20 05:54 WBC 15.8 H (3.8-10.6) k/uL RBC 2.79 L (4.30-5.90) m/uL Hgb 7.0 L (13.0-17.5) gm/dL Hct 22.8 L (39.0-53.0) % MCHC 30.7 L (31.0-37.0) g/dL RDW 16.8 H (11.5-15.5) % Plt Count 125 L (150-450) k/uL Neutrophils # 13.8 H (1.3-7.7) k/uL Lymphocytes # (1.0-4.8) k/uL Sodium (137-145) mmol/L Chloride (98-107) mmol/L Carbon Dioxide (22-30) mmol/L BUN (9-20) mg/dL Creatinine (0.66-1.25) mg/dL Glucose (74-99) mg/dL POC Glucose (mg/dL) 136 H 127 H (70-110) mg/dL Calcium (8.4-10.2) mg/dL AST (17-59) U/L Total Protein (6.3-8.2) g/dL 04/13/22 Range/Units 07:03 WBC (3.8-10.6) k/uL RBC (4.30-5.90) m/uL Hgb (13.0-17.5) gm/dL Hct (39.0-53.0) % MCHC (31.0-37.0) g/dL RDW (11.5-15.5) % Plt Count (150-450) k/uL Neutrophils # (1.3-7.7) k/uL Lymphocytes # (1.0-4.8) k/uL Sodium (137-145) mmol/L Chloride (98-107) mmol/L Carbon Dioxide (22-30) mmol/L BUN (9-20) mg/dL Creatinine (0.66-1.25) mg/dL Glucose (74-99) mg/dL POC Glucose (mg/dL) 118 H (70-110) mg/dL Calcium (8.4-10.2) mg/dL AST (17-59) U/L Total Protein (6.3-8.2) g/dL
--- NOTE | 2022-04-13 11:22 | P.PN ---
Subjective Progress Note Date: 04/13/22 This is a 77-year-old male patient with a known history of diabetes mellitus, melanoma, Leonard's esophagus, Parkinson tremors, cirrhosis of the liver, former smoker coronary artery disease. He had undergone cardiac catheterization on 03/23/2022 and was found to have calcified coronary arteries. Critical stenosis involving the proximal LAD and the first diagonal branch, severe stenosis in the first and second OM. Moderate to severe disease in the right PLV. He was recommended coronary artery bypass surgery. He was brought in today electively for the procedure. He received CABG 4 with a SANTA to the LAD, left radial artery to the first obtuse marginal, saphenous vein graft to first diagonal and a saphenous vein graft to the posterior lateral branch of the RCA. Litigation a left atrial appendage with Atricure clamp. 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 He is intubated on the mechanical ventilator with assist-control mode at the rate of 12, tidal volume 500, FiO2 50% and a PEEP of 5. Arterial blood gases on 100% FiO2 revealed a P O2 of 286, pCO2 43, pH 7.33. He has normal saline at 50 MLS per hour. Nitroglycerin drip at 5 mcg/m. Propofol is at 10 mcg/kg/m. Insulin drip at 3 units per hour. Pending amiodarone drip at 1 mg/m. Right IJ [place]-Javi catheter in place. His cardiac output is currently 6.2. Cardiac index 2.8. PA pressure 41/1. CVP 16. Core temperature of 95.5. Warming blanket is applied. Heart hugger in place. Dressing dry and intact. Left pleural and mediastinal chest tubes in place. White count 7.8. Hemoglobin 7.2. Platelets 104. INR 1.4. Sodium 142. Potassium 4.1. BUN 14. Creatinine 0.88. Glucose 117. Chest x-ray reveals tubes and lines in satisfactory position. Small bilateral effusions. No pneum othorax. The patient is seen today 04/12/2022 in follow-up in the intensive care unit. He is currently awake and alert. Sitting up in a chair at the bedside. Maintaining O2 saturations in the 90s on 6 L high flow nasal cannula. At one point during the night he was somewhat obtunded. He was placed on BiPAP for approximately 3 hours with improvement. He was extubated in less than 6 hours. Chest x-ray reveals small bilateral effusions. Persistent airspace opacity in the lateral left lung. Endotracheal tube and gastric tube removed. Mediastinal and left pleural chest tubes remain in place. [place]-Javi catheter in place. cardiac output 6.1. Cardiac index 2.8. PA pressure 31/10. CVP 14. white count 20.9. Hemoglobin 8.0. Sodium 139. Potassium 5.3. Chloride 113. Bicarb 19. BUN 18. Creatinine 1.37. Albumin 3.2. Magnesium 1.9. He is working well with the incentive spirometer. He remains on a dopamine drip at 2.5 mcg/kg/m. Amiodarone at 0.5 mg/m. Insulin drip at 4.5 units per hour. Lactated Ringer's at 50 mL per hour. appendectomy is continued on DuoNeb inhalations, Symbicort. Heparin for DVT prophylaxis. The patient is seen today 04/13/2022 in follow-up in the intensive care unit. He is currently sitting up in a chair at the bedside. Awake and alert in no acute distress. He's having some issues with confusion. Pulling at his lines and oxygen. He is maintaining good O2 saturations in the 90s on 4 L/m per nasal cannula. He has lactated Ringer's at 50 MLS per hour. He is continued on dopamine at 3 mcg/kg/m. Postoperative day #2 of his CABG 4. Chest x-ray reveals no evidence of pleural effusion, focal consolidation or pneumothorax. [place]-Javi catheter tip remains in place. Left thoracotomy tube in place. Mediastinal chest tubes in place. White count 15.8. Hemoglobin 7.0. Platelets 125. Sodium 134. Potassium 4.6. BUN 28. Creatinine 1.86. Glucose 138. AST 65. ALT 18. He is continued on DuoNeb inhalations, Symbicort. Heparin for DVT prophylaxis. Objective - Vital Signs Vital signs: Vital Signs Temp 99.0 F 04/13/22 08:00 Pulse 73 04/13/22 10:01 Resp 17 04/13/22 10:00 BP 114/62 04/13/22 10:00 Pulse Ox 96 04/13/22 10:00 FiO2 50 04/12/22 05:00 Intake & Output 04/12/22 04/13/22 04/13/22 18:59 06:59 18:59 Intake Total 3221.885 1085.995 475.225 Output Total 635 640 150 Balance 2586.885 445.995 325.225 Weight 113.8 kg 114.9 kg Intake: IV 978 979 227 .9NS Cardiac Output 70 60 10 0.9NS Pressure Bag 108 119 37 ACETAMINOPHEN IV (For NPO 200 200 ) 1,000 mg In Empty Bag 1 bag @ 400 mls/hr IVPB Q6HR [facility] Rx#:[id number] Sodium Chloride 0.9% 1, 550 600 180 000 ml @ 20 mls/hr IV . Q24H [facility] Rx#:[id number] ceFAZolin 2 gm In Sodium 50 Chloride 0.9% 50 ml @ 100 mls/hr IVPB Q8HR [facility] Rx# :[id number] Intake, IV Titration 1643.885 106.995 10.225 Amount Albumin Human 5% 250 ml @ 1000 0 mls/hr IVPB .[facility] Rx#:[id number] Albumin Human 5% 250 ml 250 In Empty Bag 1 bag @ 250 mls/hr IVPB Q1HR [facility] Rx#: [id number] Amiodarone 450 mg In 300.839 Dextrose 5% in Water 250 ml @ 0.5 MG/MIN 16.667 mls/hr IV .Q15H [facility] Rx#: [id number] DOPamine DRIP 800 mg In 39.138 93.319 Dextrose/Water 1 250ml. bag @ 2 MCG/KG/MIN 4.084 mls/hr IV .Q24H [facility] Rx#: [id number] Insulin Regular 100 unit 53.908 13.676 10.225 In Sodium Chloride 0.9% 100 ml @ Per Protocol IV .Q0M [facility] Rx#:[id number] Oral 600 238 Output: Chest Tube Drainage 390 220 Mediastinal and Left 390 220 Pleual Urine 245 420 150 Other: Voiding Method Indwelling Catheter Indwelling Catheter Indwelling Catheter ABP, PAP, CO, CI - Last Documented Arterial Blood Pressure 73/48 Pulmonary Artery Pressure 38/5 Cardiac Output 5.5 Cardiac Index 2.5 - Exam GENERAL EXAM: Alert, slightly confused 77-year-old gentleman, on 4 L high flow nasal cannula, up in a chair, comfortable in no apparent distress. HEAD: Normocephalic. EYES: Normal reaction of pupils, equal size. NOSE: Clear with pink turbinates. THROAT: No erythema or exudates. NECK: Right internal jugular [place]-Javi catheter in place. No masses, no JVD. CHEST: Sternal dressing dry and intact. Heart hugger in place. Mediastinal and left pleural chest tubes in place. LUNGS: Equal air entry with few scattered rhonchis. CVS: S1 and S2 normal with no audible murmur, regular rhythm. ABDOMEN: No hepatosplenomegaly, normal bowel sounds, no guarding or rigidity. SPINE: No scoliosis or deformity SKIN: No rashes CENTRAL NERVOUS SYSTEM: No focal deficits, tone is normal in all 4 extremities. EXTREMITIES: Right radial arterial line in place. Right lower extremity HUMBERTO drain in place. There is no peripheral edema. No clubbing, no cyanosis. Peripheral pulses are intact. - Labs CBC & Chem 7: 04/13/22 05:20 04/13/22 04:00 Labs: Abnormal Lab Results - Last 24 Hours (Table) 04/12/22 04/12/22 04/12/22 Range/Units 11:14 12:09 13:09 WBC (3.8-10.6) k/uL RBC (4.30-5.90) m/uL Hgb (13.0-17.5) gm/dL Hct (39.0-53.0) % MCHC (31.0-37.0) g/dL RDW (11.5-15.5) % Plt Count (150-450) k/uL Neutrophils # (1.3-7.7) k/uL Lymphocytes # (1.0-4.8) k/uL Sodium (137-145) mmol/L Chloride (98-107) mmol/L Carbon Dioxide (22-30) mmol/L BUN (9-20) mg/dL Creatinine (0.66-1.25) mg/dL Glucose (74-99) mg/dL POC Glucose (mg/dL) 164 H 162 H 154 H (70-110) mg/dL Calcium (8.4-10.2) mg/dL AST (17-59) U/L Total Protein (6.3-8.2) g/dL 04/12/22 04/12/2204/12/22 Range/Units 14:10 15:22 18:55 WBC (3.8-10.6) k/uL RBC (4.30-5.90) m/uL Hgb (13.0-17.5) gm/dL Hct (39.0-53.0) % MCHC (31.0-37.0) g/dL RDW (11.5-15.5) % Plt Count (150-450) k/uL Neutrophils # (1.3-7.7) k/uL Lymphocytes # (1.0-4.8) k/uL Sodium (137-145) mmol/L Chloride (98-107) mmol/L Carbon Dioxide (22-30) mmol/L BUN (9-20) mg/dL Creatinine (0.66-1.25) mg/dL Glucose (74-99) mg/dL POC Glucose (mg/dL) 131 H 126 H 121 H (70-110) mg/dL Calcium (8.4-10.2) mg/dL AST (17-59) U/L Total Protein (6.3-8.2) g/dL 04/12/22 04/12/22 04/13/22 Range/Units 21:02 23:06 03:18 WBC (3.8-10.6) k/uL RBC (4.30-5.90) m/uL Hgb (13.0-17.5) gm/dL Hct (39.0-53.0) % MCHC (31.0-37.0) g/dL RDW (11.5-15.5) % Plt Count (150-450) k/uL Neutrophils # (1.3-7.7) k/uL Lymphocytes # (1.0-4.8) k/uL Sodium (137-145) mmol/L Chloride (98-107) mmol/L Carbon Dioxide (22-30) mmol/L BUN (9-20) mg/dL Creatinine (0.66-1.25) mg/dL Glucose (74-99) mg/dL POC Glucose (mg/dL) 123 H 125 H 127 H (70-110) mg/dL Calcium (8.4-10.2) mg/dL AST (17-59) U/L Total Protein (6.3-8.2) g/dL 04/13/22 04/13/22 04/13/22 Range/Units 03:56 04:00 04:00 WBC 12.5 H (3.8-10.6) k/uL RBC 2.67 L (4.30-5.90) m/uL Hgb 6.8 L* (13.0-17.5) gm/dL Hct 21.7 L (39.0-53.0) % MCHC (31.0-37.0) g/dL RDW 16.6 H (11.5-15.5) % Plt Count 101 L (150-450) k/uL Neutrophils # 11.1 H (1.3-7.7) k/uL Lymphocytes # 0.8 L (1.0-4.8) k/uL Sodium 134 L (137-145) mmol/L Chloride 108 H (98-107) mmol/L Carbon Dioxide 16 L (22-30) mmol/L BUN 28 H (9-20) mg/dL Creatinine 1.86 H (0.66-1.25) mg/dL Glucose 138 H (74-99) mg/dL POC Glucose (mg/dL) 150 H (70-110) mg/dL Calcium 7.6 L (8.4-10.2) mg/dL AST 65 H (17-59) U/L Total Protein 5.0 L (6.3-8.2) g/dL 04/13/22 04/13/22 04/13/22 Range/Units 04:53 05:20 05:54 WBC 15.8 H (3.8-10.6) k/uL RBC 2.79 L (4.30-5.90) m/uL Hgb 7.0 L (13.0-17.5) gm/dL Hct 22.8 L (39.0-53.0) % MCHC 30.7 L (31.0-37.0) g/dL RDW 16.8 H (11.5-15.5) % Plt Count 125 L (150-450) k/uL Neutrophils # 13.8 H (1.3-7.7) k/uL Lymphocytes # (1.0-4.8) k/uL Sodium (137-145) mmol/L Chloride (98-107) mmol/L Carbon Dioxide (22-30) mmol/L BUN (9-20) mg/dL Creatinine (0.66-1.25) mg/dL Glucose (74-99) mg/dL POC Glucose (mg/dL) 136 H 127 H (70-110) mg/dL Calcium (8.4-10.2) mg/dL AST (17-59) U/L Total Protein (6.3-8.2) g/dL 04/13/22 Range/Units 07:03 WBC (3.8-10.6) k/uL RBC (4.30-5.90) m/uL Hgb (13.0-17.5) gm/dL Hct (39.0-53.0) % MCHC (31.0-37.0) g/dL RDW (11.5-15.5) % Plt Count (150-450) k/uL Neutrophils # (1.3-7.7) k/uL Lymphocytes # (1.0-4.8) k/uL Sodium (137-145) mmol/L Chloride (98-107) mmol/L Carbon Dioxide (22-30) mmol/L BUN (9-20) mg/dL Creatinine (0.66-1.25) mg/dL Glucose (74-99) mg/dL POC Glucose (mg/dL) 118 H (70-110) mg/dL Calcium (8.4-10.2) mg/dL AST (17-59) U/L Total Protein (6.3-8.2) g/dL Assessment and Plan Assessment: Coronary artery disease status post coronary artery bypass grafting 4 with a SANTA to the LAD, left radial artery graft to the first obtuse marginal, saphenous vein graft to the first diagonal, saphenous vein graft to the posterior lateral branch of the RCA. Left atrial appendage clip. Postoperative day #2. Hypoxemic respiratory failure secondary to above, expected outcome of surgery, improved and currently on 4 L high flow nasal cannula Anemia, expected outcome of surgery, current hemoglobin 7.0 Hypertension, history of Hyperlipidemia History of melanoma of the left eyelid, resected Leonard's esophagus Parkinson tremors Former smoker, quit 30 years ago Chronic obstructive pulmonary disease Plan: The patient was seen and evaluated Chest x-ray, labs and medications reviewed Did not require BiPAP, we'll discontinue Currently on 4 L high flow nasal cannula Titrate the FiO2 as tolerated Encourage increased use of the incentive spirometer Increase his activity as tolerated We'll continue to follow I have personally seen and examined the patient, performed the documentation and the assessment and plan as written. Number of minutes spent on the visit: 10.
[2022-04-13 11:41] LABS: Glucose,Whole Blood 181 mg/dL (70-110)
[2022-04-13] MEDS: INSULIN ASPART (NovoLOG) 100 UNIT/ML VIAL SQ SCH ×3 (12:39→20:16)
--- NOTE | 2022-04-13 14:43 | PN ---
PROGRESS NOTE SUBJECTIVE: Mr. Eastman still remains acidotic. He is status post bypass surgery. CO2 content is 16. I am recommending that he should have probably more insulin in addition to hydration, the drip may have to be increased. However, he seems to be somewhat better than yesterday. OBJECTIVE: HEART: S1 and S2 with a short systolic murmur. LUNGS: Reveal diminished air entry. ABDOMEN: Unchanged. LOWER EXTREMITIES: Unchanged. PROGNOSIS: Remains guarded. MMODL / IJN: [id number] /
[2022-04-13 16:47] LABS: Glucose,Whole Blood 219 mg/dL (70-110)
[2022-04-13 20:05] LABS: Glucose,Whole Blood 190 mg/dL (70-110)
[2022-04-13] MEDS: METOPROLOL TARTRATE 25 MG TAB PO SCH (20:15)
[2022-04-13] MEDS: SENNOSIDES-DOCUSATE SODIUM 1 EACH TAB PO SCH (20:15)
[2022-04-13] MEDS: ASPIRIN 81 MG PO SCH (20:16)
[2022-04-13] MEDS: ATORVASTATIN 40 MG TAB PO SCH (20:16)
[2022-04-13] MEDS ORDERED: INSULIN DETEMIR (LEVEMIR) 100 UNIT/ML SYR SQ SCH (21:00)
[2022-04-14 01:52] LABS: ABG Base Excess -3.6 mmol/L; ABG HCO3 21 mmol/L (21-25); ABG Oxygen Saturation 96.5 % (94-97); ABG PCO2 31 mmHg (35-45); ABG PH 7.43 (7.35-7.45); ABG PO2 75 mmHg (83-108); ABG TCO2 22 mmol/L (19-24); Allen Test Performed? Yes
[2022-04-14] MEDS: IPRATROPIUM-ALBUTEROL 3 ML NEB INHALATION PRN (05:45)
[2022-04-14] MEDS: SODIUM CHLORIDE 0.9% 1,000 ML IV SCH (06:00)
[2022-04-14 06:50] LABS: Glucose,Whole Blood 202 mg/dL (70-110)
[2022-04-14] MEDS: INSULIN ASPART (NovoLOG) 100 UNIT/ML VIAL SQ SCH ×5 (06:53→20:38)
[2022-04-14] MEDS: FERROUS SULFATE 325 MG TAB PO SCH ×2 (06:53→17:10)
[2022-04-14] MEDS: PANTOPRAZOLE 40 MG TABLET PO SCH ×2 (06:53→17:10)
[2022-04-14] MEDS: MAGNESIUM HYDROXIDE 2,400 MG/10 ML CUP PO PRN (07:15)
--- NOTE | 2022-04-14 07:59 | XR ---
EXAMINATION TYPE: XR chest 1V portable DATE OF EXAM: 04/14/2022 6:21 AM COMPARISON: Chest radiographs from 04/12/2022. TECHNIQUE: XR chest 1V portable Frontal view of the chest. CLINICAL INDICATION:Male, 77 years old with history of post cardiac surgery; FINDINGS: Lungs/Pleura: No visible pneumothorax or pleural effusion. Persistent patchy airspace disease in the left lateral lung base. Pulmonary vascularity: Minimal pulmonary vascular congestion. Heart/mediastinum: Cardiomediastinal silhouette is stable. Post cardiac surgery with atrial appendag e clip. Surgical clips present in the mediastinum. Musculoskeletal: No acute osseous pathology. Midline sternotomy wires and fixation hardware are noted and stable. Lines/Tubes: Stable left chest tube. Interval removal [place]-Javi catheter. IMPRESSION: 1. Persistent airspace disease left lateral lung base favored to represent atelectasis however infilt rate is not excluded. 2. Stable left chest tube with interval removal [place]-Jaiv catheter. No visible pneumothorax. 3. Minimal pulmonary vascular congestion. 4. Postsurgical changes.
[2022-04-14] MEDS: IPRATROPIUM-ALBUTEROL 3 ML NEB INHALATION SCH ×4 (08:04→19:28)
[2022-04-14] MEDS: SYMBICORT 160-4.5 MCG INHALER INHALATION SCH ×2 (08:04→19:28)
[2022-04-14] MEDS: DOPamine DRIP 800 MG in DEXTROSE/WATER 1 250ML.BAG IV SCH (08:44)
[2022-04-14] MEDS: CLOPIDOGREL 75 MG TAB PO SCH (09:06)
[2022-04-14] MEDS: CHOLECALCIFEROL 25 MCG (1000 IU) TABLET PO SCH (09:06)
[2022-04-14] MEDS: ASCORBIC ACID 500 MG TAB PO SCH (09:06)
[2022-04-14] MEDS: AMIODARONE 200 MG TAB PO SCH ×2 (09:06→20:38)
[2022-04-14] MEDS: HEPARIN SODIUM,PORCINE/PF 5,000 UNIT/0.5 ML SYRINGE SQ SCH ×3 (09:06→23:24)
[2022-04-14] MEDS: METOPROLOL TARTRATE 25 MG TAB PO SCH ×2 (09:07→20:37)
[2022-04-14] MEDS: DULoxetine HCL 60 MG CAPSULE.DR PO SCH (09:07)
[2022-04-14 09:09] LABS: Anisocytosis Slight; Basophils % (A) 0 %; Eosinophils % (A) 0 %; HCT 23.5 % (39.0-53.0); HGB 7.4 gm/dL (13.0-17.5); Hypochromasia Marked; Lymphocytes # (A) 0.9 k/uL (1.0-4.8); Lymphocytes % (A) 8 %; MCH 25.4 pg (25.0-35.0); MCHC 31.6 g/dL (31.0-37.0); MCV 80.3 fL (80.0-100.0); Mean Platelet Volume 8.1; Monocytes # (A) 0.6 k/uL (0-1.0); Monocytes % (A) 5 %; Neutrophils # (A) 10.2 k/uL (1.3-7.7); Neutrophils % (A) 86 %; Platelet Count 126 k/uL (150-450); RBC 2.92 m/uL (4.30-5.90); WBC 11.8 k/uL (3.8-10.6)
[2022-04-14 09:24] LABS: Calcium 7.6 mg/dL (8.4-10.2); Potassium 4.6 mmol/L (3.5-5.1); Total Bilirubin 0.8 mg/dL (0.2-1.3); Total Protein 4.8 g/dL (6.3-8.2)
--- NOTE | 2022-04-14 09:29 | P.PN ---
Subjective Progress Note Date: 04/14/22 Principal diagnosis: Coronary artery disease. Previous medical history of hypertension, hyperlipidemia, insulin-dependent diabetes, previous tobacco dependence, mild COPD, asthma, liver cirrhosis, Leonard's esophagus, PAD, melanoma skin cancer, chronic iron deficiency anemia, essential tremors, depression, and family history of coronary artery disease POD #3 off-pump coronary artery bypass grafting 4 with left internal mammary artery to the left anterior descending artery, left radial artery graft to the first obtuse marginal artery, reverse saphenous vein graft to the first diagonal artery, reverse saphenous vein graft to the posterior lateral branch of the right coronary artery, ligation of the left atrial appendage with a 35 mm AtriCure clamp, endovascular vein harvest of bilateral greater saphenous vein and endovascular left radial artery harvest. Intraoperative transesophageal echocardiogram performed by anesthesia. Postoperative acute blood loss anemia, expected given hemodilution and preoperative anemia The patient was seen and examined this morning sitting up in a recliner on the intensive care unit in no acute distress. Remains in sinus rhythm, hemodynamically stable, remains on IV dopamine. Denies chest pain, shortness of breath, complains of lack of sleep although RN states he slept most of the night. At one point RN. Patient was obtunded, ABGs obtained, 7.43/31/75/21/96/-3.6. Oriented to person, place, time and situation. Right internal jugular Cordis, left pleural chest tube remains. Labs and chest x-ray reviewed. Objective - Vital Signs Vital signs: Vital Signs Temp 98.7 F 04/14/22 04:00 Pulse 71 04/14/22 07:00 Resp 17 04/14/22 07:00 BP 114/52 04/14/22 07:00 Pulse Ox 97 04/14/22 07:00 FiO2 21 04/13/22 15:58 Intake & Output 04/13/22 04/14/22 04/14/22 18:59 06:59 18:59 Intake Total 884.225 326 23 Output Total 680 670 210 Balance 204.225 -344 -187 Weight 114.3 kg Intake: IV 426 276 23 .9NS Cardiac Output 10 0.9NS Pressure Bag 76 36 3 Sodium Chloride 0.9% 1, 340 240 20 000 ml @ 20 mls/hr IV . Q24H [facility] Rx#:[id number] Intake, IV Titration 10.225 Amount Insulin Regular 100 unit 10.225 In Sodium Chloride 0.9% 100 ml @ Per Protocol IV .Q0M [facility] Rx#:[id number] Oral 448 50 Output: Chest Tube Drainage 140 160 left pleural 140 160 Urine 540 670 50 Other: Voiding Method Indwelling Catheter Indwelling Catheter ABP, PAP, CO, CI - Last Documented Arterial Blood Pressure 73/48 Pulmonary Artery Pressure 38/5 Cardiac Output 5.5 Cardiac Index 2.5 - Exam CONSTITUTIONAL: Appears comfortable, cooperative, no acute distress RESPIRATORY: Lungs sounds diminished bilaterally. Respirations even, nonlabored. Currently on 3L NC with oxygen saturation 97%. Able to achieve 0242-2705 mL on incentive spirometry. Strong loose cough. CARDIOVASCULAR: S1, S2 present. Regular rate and rhythm, sinus rhythm on telemetry. Sternum stable. Palpable peripheral pulses bilaterally. Generalized edema present, upper extremities greater than lower extremities. No calf pain or tenderness noted. Heart hugger in place with patient occasionally demonstrating appropriate use when instructed. Antiembolism stockings, SCDs present. GASTROINTESTINAL: Abdomen soft, nontender, nondistended. Active bowel sounds present 4 quadrants. Tolerating diet. Positive flatus, negative bowel movement GENITOURINARY: Woods present draining clear, yellow urine. Output overnight 40-75 mL per hour, 1210 mL in the last 24 hours INTEGUMENTARY: Skin is warm and dry. Anterior chest incision well approximated and covered with dry intact dressing. Bilateral lower extremity EVH sites well approximated without redness NEUROLOGIC: Cranial nerves II through XII intact MUSKULOSKELETAL: Able to move all extremities, strength equal bilaterally PSYCHIATRIC: Alert and oriented to person place and time, appropriate affect, intact judgment and insight INVASIVE LINES AND TUBES: Left pleural chest tubes present and connected to wall suction, no air leaks present, 160 mL serosanguineous drainage overnight, 300 mL in the last 24 hours. Right internal jugular Cordis present. Last CVP 6. - Allied health notes Allied health notes reviewed: nursing - Labs CBC & Chem 7: 04/14/22 08:10 04/14/22 08:10 Labs: Abnormal Lab Results - Last 24 Hours (Table) 04/13/22 04/13/22 04/13/22 Range/Units 11:40 16:46 20:04 ABG pCO2 (35-45) mmHg ABG pO2 (83-108) mmHg POC Glucose (mg/dL) 181 H 219 H 190 H (70-110) mg/dL 04/14/22 04/14/22 Range/Units 01:51 06:48 ABG pCO2 31 L (35-45) mmHg ABG pO2 75 L (83-108) mmHg POC Glucose (mg/dL) 202 H (70-110) mg/dL - Imaging and Cardiology Chest x-ray: image reviewed Assessment and Plan Assessment: 1. Coronary artery disease, status post four-vessel off-pump CABG 2. History of hypertension, currently hypotensive on dopamine 3. Hyperlipidemia, treated, cholesterol 157, LDL 85, triglycerides 169 4. Insulin-dependent diabetes, preoperative hemoglobin A1c 9.4% 5. Previous tobacco dependence 6. Mild COPD, preoperative FEV1 62% of predicted 7. Asthma 8. Liver cirrhosis 9. Leonard's esophagus 10. PAD 11. Melanoma skin cancer 12. Chronic iron deficiency anemia 13. Essential tremors 14. Depression 15. Family history of coronary artery disease 16. Postoperative acute blood loss anemia, expected given hemodilution and preoperative anemia Plan: 1. Continue aspirin, statin, Plavix, beta yolette therapy. Will increase beta yolette therapy as tolerated 2. Discontinue dopamine. Will start lasix 20 mg IVP Q 8 hours 3. Continue amiodarone for A. fib prophylaxis, ChadsVasc 5 4. Wean O2 as tolerated. Encourage incentive spirometry is 10 times every hour while awake. Bronchodilators per pulmonology 5. Increase activity, ambulate as tolerated. PT/OT/cardiac rehab consulted 6. Will monitor daily labs and x-rays. Electrolyte replacement per protocol 7. GI/DVT prophylaxis 8. Insulin management per primary care service, patient needs tighter blood sugar control. Patient is diabetic, normally on insulin pump 9. Pain control with current medication regimen. Avoid narcotics 10. Discontinue Cordis 11. Will discontinue left pleural chest tubes 12. Strict accurate intake and output, daily weights 13. Keep in ICU for 1 more day for close monitoring 14. More recommendations to follow
[2022-04-14] MEDS: PRIMIDONE 250 MG TAB PO SCH ×2 (10:05→20:37)
[2022-04-14] MEDS: FUROSEMIDE 10 MG/ML 2 ML VIAL IV SCH ×3 (10:05→23:24)
--- NOTE | 2022-04-14 10:34 | PN ---
PROGRESS NOTE SUBJECTIVE: Mr. Eastman is in sinus rhythm. His acidosis is better. His blood pressure has also improved well. His dopamine is being weaned. Urine output is fairly decent. His creatinine was 1.86 yesterday. Today's labs are pending. OBJECTIVE: VITAL SIGNS: Stable. GENERAL: The patient looks much better today clinically. NECK: JVD 1 cm. No carotid bruit. HEART: S1, S2 heard normally. Short systolic murmur. Possible pericardial rub. LUNGS: Reveal improved air entry. ABDOMEN: Unchanged. LOWER EXTREMITIES: Unchanged. RECOMMENDATIONS: The patient's dopamine can probably wean off, and we will await results of the laboratory data. MMODL / IJN: [id number] /
--- NOTE | 2022-04-14 10:50 | P.PN ---
Subjective Progress Note Date: 04/14/22 This is a 77-year-old male patient with a known history of diabetes mellitus, melanoma, Leonard's esophagus, Parkinson tremors, cirrhosis of the liver, former smoker coronary artery disease. He had undergone cardiac catheterization on 03/23/2022 and was found to have calcified coronary arteries. Critical stenosis involving the proximal LAD and the first diagonal branch, severe stenosis in the first and second OM. Moderate to severe disease in the right PLV. He was recommended coronary artery bypass surgery. He was brought in today electively for the procedure. He received CABG 4 with a SANTA to the LAD, left radial artery to the first obtuse marginal, saphenous vein graft to first diagonal and a saphenous vein graft to the posterior lateral branch of the RCA. Litigation a left atrial appendage with Atricure clamp. 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 He is intubated on the mechanical ventilator with assist-control mode at the rate of 12, tidal volume 500, FiO2 50% and a PEEP of 5. Arterial blood gases on 100% FiO2 revealed a P O2 of 286, pCO2 43, pH 7.33. He has normal saline at 50 MLS per hour. Nitroglycerin drip at 5 mcg/m. Propofol is at 10 mcg/kg/m. Insulin drip at 3 units per hour. Pending amiodarone drip at 1 mg/m. Right IJ [place]avi catheter in place. His cardiac output is currently 6.2. Cardiac index 2.8. PA pressure 41/1. CVP 16. Core temperature of 95.5. Warming blanket is applied. Heart hugger in place. Dressing dry and intact. Left pleural and mediastinal chest tubes in place. White count 7.8. Hemoglobin 7.2. Platelets 104. INR 1.4. Sodium 142. Potassium 4.1. BUN 14. Creatinine 0.88. Glucose 117. Chest x-ray reveals tubes and lines in satisfactory position. Small bilateral effusions. No pneum othorax. The patient is seen today 04/12/2022 in follow-up in the intensive care unit. He is currently awake and alert. Sitting up in a chair at the bedside. Maintaining O2 saturations in the 90s on 6 L high flow nasal cannula. At one point during the night he was somewhat obtunded. He was placed on BiPAP for approximately 3 hours with improvement. He was extubated in less than 6 hours. Chest x-ray reveals small bilateral effusions. Persistent airspace opacity in the lateral left lung. Endotracheal tube and gastric tube removed. Mediastinal and left pleural chest tubes remain in place. [place]Javi catheter in place. cardiac output 6.1. Cardiac index 2.8. PA pressure 31/10. CVP 14. white count 20.9. Hemoglobin 8.0. Sodium 139. Potassium 5.3. Chloride 113. Bicarb 19. BUN 18. Creatinine 1.37. Albumin 3.2. Magnesium 1.9. He is working well with the incentive spirometer. He remains on a dopamine drip at 2.5 mcg/kg/m. Amiodarone at 0.5 mg/m. Insulin drip at 4.5 units per hour. Lactated Ringer's at 50 mL per hour. appendectomy is continued on DuoNeb inhalations, Symbicort. Heparin for DVT prophylaxis. The patient is seen today 04/13/2022 in follow-up in the intensive care unit. He is currently sitting up in a chair at the bedside. Awake and alert in no acute distress. He's having some issues with confusion. Pulling at his lines and oxygen. He is maintaining good O2 saturations in the 90s on 4 L/m per nasal cannula. He has lactated Ringer's at 50 MLS per hour. He is continued on dopamine at 3 mcg/kg/m. Postoperative day #2 of his CABG 4. Chest x-ray reveals no evidence of pleural effusion, focal consolidation or pneumothorax. [place]avi catheter tip remains in place. Left thoracotomy tube in place. Mediastinal chest tubes in place. White count 15.8. Hemoglobin 7.0. Platelets 125. Sodium 134. Potassium 4.6. BUN 28. Creatinine 1.86. Glucose 138. AST 65. ALT 18. He is continued on DuoNeb inhalations, Symbicort. Heparin for DVT prophylaxis. The patient is seen today 04/14/2022 in follow-up in the intensive care unit. He is currently sitting up in a chair at the bedside. Awake and alert in no acute distress. Maintaining O2 saturations in the 90s on 2 L/m per nasal cannula. He remains on dopamine at 2 mcg/kg/m. Normal saline at 20 ML's per hour. This is postoperative day #3. His x-ray shows persistent airspace dise ase in the left lateral lung base most likely atelectasis. Stable left chest tube. No visible pneumothorax. [place]avi catheter has been removed. White count 11.8. Hemoglobin 7.4. Platelets 126. Sodium 138. Potassium 4.6. Bicarb 21. BUN 40. Creatinine 1.22. He is continued on DuoNeb inhalations, Symbicort. Remains on IV diuretics. Heparin for DVT prophylaxis. Objective - Vital Signs Vital signs: Vital Signs Temp 98.5 F 04/14/22 09:00 Pulse 66 04/14/22 10:00 Resp 18 04/14/22 10:00 BP 121/60 04/14/22 10:00 Pulse Ox 96 04/14/22 10:00 FiO2 21 04/13/22 15:58 Intake & Output 04/13/22 04/14/22 04/14/22 18:59 06:59 18:59 Intake Total 884.225 326 368.435 Output Total 680 670 360 Balance 204.225 -344 8.435 Weight 114.3 kg Intake: IV 426 276 92 .9NS Cardiac Output 10 0.9NS Pressure Bag 76 36 12 Sodium Chloride 0.9% 1, 340 240 80 000 ml @ 20 mls/hr IV . Q24H [facility] Rx#:[id number] Intake, IV Titration 10.225 186.435 Amount DOPamine DRIP 800 mg In 186.435 Dextrose/Water 1 250ml. bag @ 2 MCG/KG/MIN 4.084 mls/hr IV .Q24H [facility] Rx#: [id number] Insulin Regular 100 unit 10.225 In Sodium Chloride 0.9% 100 ml @ Per Protocol IV .Q0M [facility] Rx#:[id number] Oral 448 50 90 Output: Chest Tube Drainage 140 160 left pleural 140 160 Urine 540 670 200 Other: Voiding Method Indwelling Catheter Indwelling Catheter Indwelling Catheter ABP, PAP, CO, CI - Last Documented Arterial Blood Pressure 73/48 Pulmonary Artery Pressure 38/5 Cardiac Output 5.5 Cardiac Index 2.5 - Exam GENERAL EXAM: Alert, slightly confused 77-year-old gentleman, on 2 L nasal cannula, up in a chair, comfortable in no apparent distress. HEAD: Normocephalic. EYES: Normal reaction of pupils, equal size. NOSE: Clear with pink turbinates. THROAT: No erythema or exudates. NECK: Right internal jugular Cordis catheter in place. No masses, no JVD. CHEST: Sternal dressing dry and intact. Heart hugger in place. Left pleural chest tubes in place. LUNGS: Equal air entry with few scattered rhonchis. CVS: S1 and S2 normal with no audible murmur, regular rhythm. ABDOMEN: No hepatosplenomegaly, normal bowel sounds, no guarding or rigidity. SPINE: No scoliosis or deformity SKIN: No rashes CENTRAL NERVOUS SYSTEM: No focal deficits, tone is normal in all 4 extremities. EXTREMITIES: There is no peripheral edema. No clubbing, no cyanosis. Peripheral pulses are intact. - Labs CBC & Chem 7: 04/14/22 08:10 04/14/22 08:10 Labs: Abnormal Lab Results - Last 24 Hours (Table) 04/13/22 04/13/22 04/13/22 Range/Units 11:40 16:46 20:04 WBC (3.8-10.6) k/uL RBC (4.30-5.90) m/uL Hgb (13.0-17.5) gm/dL Hct (39.0-53.0) % RDW (11.5-15.5) % Plt Count (150-450) k/uL Neutrophils # (1.3-7.7) k/uL Lymphocytes # (1.0-4.8) k/uL ABG pCO2 (35-45) mmHg ABG pO2 (83-108) mmHg Chloride (98-107) mmol/L Carbon Dioxide (22-30) mmol/L BUN (9-20) mg/dL Glucose (74-99) mg/dL POC Glucose (mg/dL) 181 H 219 H 190 H (70-110) mg/dL Calcium (8.4-10.2) mg/dL Total Protein (6.3-8.2) g/dL Albumin (3.5-5.0) g/dL 04/14/22 04/14/22 04/14/22 Range/Units 01:51 06:48 08:10 WBC 11.8 H (3.8-10.6) k/uL RBC 2.92 L (4.30-5.90) m/uL Hgb 7.4 L (13.0-17.5) gm/dL Hct 23.5 L (39.0-53.0) % RDW 17.0 H (11.5-15.5) % Plt Count 126 L (150-450) k/uL Neutrophils # 10.2 H (1.3-7.7) k/uL Lymphocytes # 0.9 L (1.0-4.8) k/uL ABG pCO2 31 L (35-45) mmHg ABG pO2 75 L (83-108) mmHg Chloride (98-107) mmol/L Carbon Dioxide (22-30) mmol/L BUN (9-20) mg/dL Glucose (74-99) mg/dL POC Glucose (mg/dL) 202 H (70-110) mg/dL Calcium (8.4-10.2) mg/dL Total Protein (6.3-8.2) g/dL Albumin (3.5-5.0) g/dL 04/14/22 Range/Units 08:10 WBC (3.8-10.6) k/uL RBC (4.30-5.90) m/uL Hgb (13.0-17.5) gm/dL Hct (39.0-53.0) % RDW (11.5-15.5) % Plt Count (150-450) k/uL Neutrophils # (1.3-7.7) k/uL Lymphocytes # (1.0-4.8) k/uL ABG pCO2 (35-45) mmHg ABG pO2 (83-108) mmHg Chloride 109 H (98-107) mmol/L Carbon Dioxide 21 L (22-30) mmol/L BUN 40 H (9-20) mg/dL Glucose 187 H (74-99) mg/dL POC Glucose (mg/dL) (70-110) mg/dL Calcium 7.6 L (8.4-10.2) mg/dL Total Protein 4.8 L (6.3-8.2) g/dL Albumin 3.0 L (3.5-5.0) g/dL Assessment and Plan Assessment: Coronary artery disease status post coronary artery bypass grafting 4 with a SANTA to the LAD, left radial artery graft to the first obtuse marginal, saphenous vein graft to the first diagonal, saphenous vein graft to the posterior lateral branch of the RCA. Left atrial appendage clip. Postoperative day #3. Hypoxemic respiratory failure secondary to above, expected outcome of surgery, improved and currently on 2 L nasal cannula Anemia, expected outcome of surgery, current hemoglobin 7.4 Hypertension, history of Hyperlipidemia History of melanoma of the left eyelid, resected Leonard's esophagus Parkinson tremors Former smoker, quit 30 years ago Chronic obstructive pulmonary disease Plan: The patient was seen and evaluated Chest x-ray, labs and medications reviewed Currently on 2 L nasal cannula Titrate the FiO2 as tolerated Encourage increased use of the incentive spirometer Increase his activity as tolerated We'll continue to follow I have personally seen and examined the patient, performed the documentation and the assessment and plan as written. Number of minutes spent on the visit: 10.
[2022-04-14 11:29] LABS: Glucose,Whole Blood 204 mg/dL (70-110)
[2022-04-14] MEDS: INSULIN DETEMIR (LEVEMIR) 100 UNIT/ML SYR SQ SCH ×2 (11:34→23:03)
[2022-04-14] MEDS ORDERED: INSULIN ASPART (NovoLOG) 100 UNIT/ML VIAL SQ SCH (12:30)
--- NOTE | 2022-04-14 14:47 | CDI ---
Documentation Clarification Form Date: 04/14/2022 02:34:05 PM From: Aminata Gurrola CCS, CCDS Admit Date: 04/11/2022 05:40:00 AM Patient Name: Negrito Eastman Visit Number: [id number] Discharge Date: ATTENTION: The Clinical Documentation Specialists (CDI) and [facility] Coding Staff appreciate your assistance in clarifying documentation. Please respond to the clarification below the line at the bottom and electronically sign. The CDI & [facility] Coding staff will review the response and follow-up if needed. Please note: Queries are made part of the Legal Health Record. If you have any questions, please contact the author of this message via ITS. Dr. Nicolas Rubio: Hypoxemic respiratory failure, expected outcome of surgery is documented beginning in the 04/11 Pulmonary Consult without further specificity of acuity. Based on this information and the findings below, is there an additional diagnosis that is clinically appropriate for this patient? 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 04/11 VS status post CABG: T 95.5, P 66 - 70, R 12, BP 114/16, PO 99-100 on 50% vent. 04/11 LAB/Blood Gas (A line): pH: 7.39, 7.33, 7.26. pCO2 37, 43, 50 pO2 >420, 286, 103 Treatment 04/11: Chest Tube management, Incentive Spirometry, [place] catheter, Extubated to 4Lnc, IV Albumin 250 mls @ 250 mls/hr Q1H, INH Duoneb Q2H/prn, IV Amiodarone drip, IV Calcium Gluconate/Na Chl 100 mls @ 100 mls/hr x1/prn, IV Clevidipine 50 mls @ 2ml/shr q24H, IV Precedex 100 mls, IV Dextrose, IV Apresoline 10 mg q1H/prn, INH Ventolin 2.5 mg QID/prn. Is there an additional diagnosis that is clinically appropriate for this patient? [ ] Acute Hypoxic Respiratory Failure [ ] Acute on Chronic Hypoxic Respiratory Failure [ ] Other Diagnosis, please specify: [ x ] Unable to determine (Template Last Revised: July 2020) MTDD
--- NOTE | 2022-04-14 15:38 | P.PN ---
Subjective Progress Note Date: 04/14/22 (delayed charting seen at 1030) Patient is 77-year-old male with multivessel coronary artery disease, cirrhosis, insulin-dependent diabetes on an insulin pump, and multiple other comorbid c onditions who presented for quadruple vessel bypass. Excoriation seen and examined at bedside. He is sitting in the chair. He is slightly confused still. He is responding he will let aren't in the room. He does report some chest pain and mild shortness of breath. He did not eat much of his breakfast. His blood sugars have been elevated. Discussed with nursing. His insulin pump is not at bedside. She will call and determine basal rate and carb counting ratio or had bring in the insulin pump. General: ill appearing , no distress, appears at stated age Derm: warm, dry Head: atraumatic, normocephalic, symmetric Eyes: EOMI, no lid lag, anicteric sclera Mouth: no lip lesion, mucus membranes moist Cardiovascular: S1S2 reg, no murmur, positive posterior tibial pulse bilateral, Lungs: Decreased bs bilateral, no rhonchi, no rales , no accessory muscle use Abdominal: soft, nontender to palpation, no guarding, no appreciable organomegaly Ext: no gross muscle atrophy, trace edema, no contractures Neuro: CN II-XI grossly intact, no focal neuro deficits Psych: Awake, oriented to person and situation, talking to his who is not present, appropriate affect Assessment and Plan: Severe multivessel coronary artery disease Status post CABG 4 -Post CABG 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, 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 -Now extubated -Aspirin and Plavix, and statin -Amiodarone drip and transitioned to oral -Also on dopamine gtt -Pain control and antiemetics -Subcu heparin for DVT prophylaxis Insulin-dependent diabetes, on insulin pump - SSI, add fixed dose, add 5 units of levemir in AM, Levemir 10 units in PM - follow BS - hold insulin pump - Basal [id number] 2.6 [id number] 4.6 - Carb ratio 2.5 Postop anemia and thrombocytopenia, anticipated outcome of surgery -Follow CBC -No indication for transfusion at this time HTN - BP managed by CT surgery Leukocytosis Likely reactive, improving Anemia, thro Acute kidney injury, improving -Nonoliguric -Likely prerenal given postop and being on pressors -Continue to monitor urine output and renal function -If continues to worsen, consider nephrology consult Chronic: History of cirrhosis History of Leonard's esophagus History of iron deficiency anemia Asthma Thank you for allowing us to participate in the care of this pleasant patient. Do not hesitate to contact us with questions. Someone can be reached from the [facility] [place] hospitalist group all hours of the day at [phone] or via [employer]. Objective - Vital Signs Vital signs: Vital Signs Temp 98.4 F 04/14/22 12:00 Pulse 68 04/14/22 15:00 Resp 17 04/14/22 15:00 BP 131/64 04/14/22 15:00 Pulse Ox 97 04/14/22 15:00 FiO2 21 04/13/22 15:58 Intake & Output 04/13/22 04/14/22 04/14/22 18:59 06:59 18:59 Intake Total 884.225 326 391.435 Output Total 434 916 7043 Balance 204.225 -344 -993.565 Weight 114.3 kg Intake: IV 426 276 115 .9NS Cardiac Output 10 0.9NS Pressure Bag 76 36 15 Sodium Chloride 0.9% 1, 340 240 100 000 ml @ 20 mls/hr IV . Q24H [facility] Rx#:[id number] Intake, IV Titration 10.225 186.435 Amount DOPamine DRIP 800 mg In 186.435 Dextrose/Water 1 250ml. bag @ 2 MCG/KG/MIN 4.084 mls/hr IV .Q24H [facility] Rx#: [id number] Insulin Regular 100 unit 10.225 In Sodium Chloride 0.9% 100 ml @ Per Protocol IV .Q0M [facility] Rx#:[id number] Oral 448 50 90 Output: Chest Tube Drainage 140 260 left pleural 140 260 Urine 343 941 6360 Other: Voiding Method Indwelling Catheter Indwelling Catheter Indwelling Catheter ABP, PAP, CO, CI - Last Documented Arterial Blood Pressure 73/48 Pulmonary Artery Pressure 38/5 Cardiac Output 5.5 Cardiac Index 2.5 - Labs CBC & Chem 7: 04/14/22 08:10 04/14/22 08:10 Labs: Abnormal Lab Results - Last 24 Hours (Table) 04/13/22 04/13/22 04/14/22 Range/Units 16:46 20:04 01:51 WBC (3.8-10.6) k/uL RBC (4.30-5.90) m/uL Hgb (13.0-17.5) gm/dL Hct (39.0-53.0) % RDW (11.5-15.5) % Plt Count (150-450) k/uL Neutrophils # (1.3-7.7) k/uL Lymphocytes # (1.0-4.8) k/uL ABG pCO2 31 L (35-45) mmHg ABG pO2 75 L (83-108) mmHg Chloride (98-107) mmol/L Carbon Dioxide (22-30) mmol/L BUN (9-20) mg/dL Glucose (74-99) mg/dL POC Glucose (mg/dL) 219 H 190 H (70-110) mg/dL Calcium (8.4-10.2) mg/dL Total Protein (6.3-8.2) g/dL Albumin (3.5-5.0) g/dL 04/14/22 04/14/22 04/14/22 Range/Units 06:48 08:10 08:10 WBC 11.8 H (3.8-10.6) k/uL RBC 2.92 L (4.30-5.90) m/uL Hgb 7.4 L (13.0-17.5) gm/dL Hct 23.5 L (39.0-53.0) % RDW 17.0 H (11.5-15.5) % Plt Count 126 L (150-450) k/uL Neutrophils # 10.2 H (1.3-7.7) k/uL Lymphocytes # 0.9 L (1.0-4.8) k/uL ABG pCO2 (35-45) mmHg ABG pO2 (83-108) mmHg Chloride 109 H (98-107) mmol/L Carbon Dioxide 21 L (22-30) mmol/L BUN 40 H (9-20) mg/dL Glucose 187 H (74-99) mg/dL POC Glucose (mg/dL) 202 H (70-110) mg/dL Calcium 7.6 L (8.4-10.2) mg/dL Total Protein 4.8 L (6.3-8.2) g/dL Albumin 3.0 L (3.5-5.0) g/dL 04/14/22 Range/Units 11:28 WBC (3.8-10.6) k/uL RBC (4.30-5.90) m/uL Hgb (13.0-17.5) gm/dL Hct (39.0-53.0) % RDW (11.5-15.5) % Plt Count (150-450) k/uL Neutrophils # (1.3-7.7) k/uL Lymphocytes # (1.0-4.8) k/uL ABG pCO2 (35-45) mmHg ABG pO2 (83-108) mmHg Chloride (98-107) mmol/L Carbon Dioxide (22-30) mmol/L BUN (9-20) mg/dL Glucose (74-99) mg/dL POC Glucose (mg/dL) 204 H (70-110) mg/dL Calcium (8.4-10.2) mg/dL Total Protein (6.3-8.2) g/dL Albumin (3.5-5.0) g/dL
[2022-04-14 17:07] LABS: Glucose,Whole Blood 192 mg/dL (70-110)
[2022-04-14 20:31] LABS: Glucose,Whole Blood 196 mg/dL (70-110)
[2022-04-14] MEDS: ATORVASTATIN 40 MG TAB PO SCH (20:37)
[2022-04-14] MEDS: SENNOSIDES-DOCUSATE SODIUM 1 EACH TAB PO SCH (20:37)
[2022-04-14] MEDS: ASPIRIN 81 MG PO SCH (20:38)
[2022-04-14] MEDS ORDERED: INSULIN DETEMIR (LEVEMIR) 100 UNIT/ML SYR SQ SCH ×2 (21:00)
[2022-04-15 02:27] LABS: Glucose,Whole Blood 180 mg/dL (70-110)
[2022-04-15] MEDS: SODIUM CHLORIDE 0.9% 1,000 ML IV SCH (03:19)
[2022-04-15 06:32] LABS: Glucose,Whole Blood 163 mg/dL (70-110)
[2022-04-15 06:36] LABS: Anisocytosis Slight; HCT 26.6 % (39.0-53.0); HGB 8.2 gm/dL (13.0-17.5); Hypochromasia Marked; MCH 24.7 pg (25.0-35.0); MCHC 30.8 g/dL (31.0-37.0); MCV 80.3 fL (80.0-100.0); Mean Platelet Volume 8.7; Platelet Count 206 k/uL (150-450); RBC 3.32 m/uL (4.30-5.90); RDW 17.2 % (11.5-15.5); WBC 14.9 k/uL (3.8-10.6)
[2022-04-15 06:51] LABS: Albumin 3.1 g/dL (3.5-5.0); Calcium 7.8 mg/dL (8.4-10.2); Total Protein 4.9 g/dL (6.3-8.2)
[2022-04-15] MEDS: FERROUS SULFATE 325 MG TAB PO SCH ×2 (06:51→17:08)
[2022-04-15] MEDS: INSULIN ASPART (NovoLOG) 100 UNIT/ML VIAL SQ SCH ×8 (06:51→21:38)
[2022-04-15] MEDS: PANTOPRAZOLE 40 MG TABLET PO SCH ×2 (06:51→17:08)
[2022-04-15] MEDS: INSULIN DETEMIR (LEVEMIR) 100 UNIT/ML SYR SQ SCH ×2 (06:51→21:17)
--- NOTE | 2022-04-15 07:29 | XR ---
EXAMINATION TYPE: XR chest 1V portable DATE OF EXAM: 04/15/2022 5:57 AM COMPARISON: Chest radiograph from one day prior. TECHNIQUE: XR chest 1V portable Frontal view of the chest. CLINICAL INDICATION:Male, 77 years old with history of Post cardiac surgery; FINDINGS: Lungs/Pleura: There is no evidence of focal consolidation, or pneumothorax. There is trace blunting of the left costophrenic angle. Pulmonary vascularity: Unremarkable. Heart/mediastinum: Cardiomediastinal silhouette is enlarged and stable. Left atrial appendage occlusi on device is present. Musculoskeletal: No acute osseous pathology. Midline sternotomy wires are noted. Lines/Tubes: Multiple left chest tube. No evidence of pneumothorax. IMPRESSION: 1. Status post thoracotomy tube removal on the left without evidence of pneumothorax. 2. Trace left pleural effusion.
[2022-04-15] MEDS ORDERED: INSULIN DETEMIR (LEVEMIR) 100 UNIT/ML SYR SQ ONE (08:30)
[2022-04-15] MEDS: ASCORBIC ACID 500 MG TAB PO SCH (08:47)
[2022-04-15] MEDS: CHOLECALCIFEROL 25 MCG (1000 IU) TABLET PO SCH (08:47)
[2022-04-15] MEDS: CLOPIDOGREL 75 MG TAB PO SCH (08:47)
[2022-04-15] MEDS: HEPARIN SODIUM,PORCINE/PF 5,000 UNIT/0.5 ML SYRINGE SQ SCH ×2 (08:47→17:07)
[2022-04-15] MEDS: METOPROLOL TARTRATE 25 MG TAB PO SCH ×2 (08:48→21:17)
[2022-04-15] MEDS: PRIMIDONE 250 MG TAB PO SCH (08:48)
[2022-04-15] MEDS: DULoxetine HCL 60 MG CAPSULE.DR PO SCH (08:49)
[2022-04-15] MEDS: AMIODARONE 200 MG TAB PO SCH ×2 (08:50→21:17)
[2022-04-15] MEDS: guaiFENesin 600 MG TABLET.ER PO SCH ×2 (08:54→21:17)
[2022-04-15] MEDS: FUROSEMIDE 10 MG/ML 2 ML VIAL IV SCH ×2 (08:54→21:17)
[2022-04-15 09:03] LABS: Glucose,Whole Blood 161 mg/dL (70-110)
[2022-04-15] MEDS: IPRATROPIUM-ALBUTEROL 3 ML NEB INHALATION SCH ×4 (09:03→20:40)
[2022-04-15] MEDS: SYMBICORT 160-4.5 MCG INHALER INHALATION SCH ×2 (09:03→20:40)
--- NOTE | 2022-04-15 09:06 | P.PN ---
Subjective Progress Note Date: 04/15/22 Principal diagnosis: Coronary artery disease. Past medical History significant for hypertension, hyperlipidemia, insulin-dependent diabetes, previous tobacco dependence, mild COPD, asthma, liver cirrhosis, Leonard's esophagus, PAD, melanoma skin cancer, chronic iron deficiency anemia, essential tremors, depression, and family history of coronary artery disease POD #4 off-pump coronary artery bypass grafting 4 with left internal mammary artery to the left anterior descending artery, left radial artery graft to the first obtuse marginal artery, reverse saphenous vein graft to the first diagonal artery, reverse saphenous vein graft to the posterior lateral branch of the r ight coronary artery, ligation of the left atrial appendage with a 35 mm AtriCure clamp, endovascular vein harvest of bilateral greater saphenous vein and endovascular left radial artery harvest. Intraoperative transesophageal echocardiogram performed by anesthesia. Postoperative acute blood loss anemia, expected given hemodilution and preoperative anemia The patient was seen and examined in follow-up today 04/15/2022 at his bedside in the intensive care unit. Currently the patient is sitting up to the bedside chair, is awake, alert, oriented 3 and is in no acute apparent distress. Neville es any complaints of shortness of breath, although is complaining of some surgical type pain to his sternal incision rating his pain 4 out of 10 on the pain scale. He does have a loose nonproductive cough. Oxygen saturation are 97% on 2 L nasal cannula and he is achieving 1500 mL on his incentive spirometry with encouragement. The patient's night nurse reports that he was having some lower extremity weakness this morning and was shuffling gait to the bedside chair with 2 person assist. Woods catheter remains in place for accurate I's and O's. Urine output in the last 8 hours was 965 mL. Chest x-ray was reviewed. He remains hemodynamically stable and is currently on inotropic pressor support. Objective - Vital Signs Vital signs: Vital Signs Temp 97.9 F 04/15/22 08:00 Pulse 75 04/15/22 08:00 Resp 16 04/15/22 08:00 BP 114/66 04/15/22 08:00 Pulse Ox 96 04/15/22 08:00 FiO2 21 04/13/22 15:58 Intake & Output 04/14/22 04/15/22 04/15/22 18:59 06:59 18:59 Intake Total 631.435 Output Total 2145 1440 75 Balance -1513.565 -1440 -75 Weight 111 kg Intake: IV 115 0.9NS Pressure Bag 15 Sodium Chloride 0.9% 1, 100 000 ml @ 20 mls/hr IV . Q24H [facility] Rx#:[id number] Intake, IV Titration 186.435 Amount DOPamine DRIP 800 mg In 186.435 Dextrose/Water 1 250ml. bag @ 2 MCG/KG/MIN 4.084 mls/hr IV .Q24H [facility] Rx#: [id number] Oral 330 Output: Chest Tube Drainage 260 left pleural 260 Urine 1885 1440 75 Other: Voiding Method Indwelling Catheter Indwelling Catheter ABP, PAP, CO, CI - Last Documented Arterial Blood Pressure 73/48 Pulmonary Artery Pressure 38/5 Cardiac Output 5.5 Cardiac Index 2.5 - Exam CONSTITUTIONAL: Sitting up to the bedside chair in the intensive care unit. Ap pears comfortable, cooperative, no acute distress. RESPIRATORY: Lungs sounds diminished bilaterally. Respirations are symmetrical, nonlabored. Currently on 2L NC with oxygen saturation 97%. Able t o achieve 1500 mL on incentive spirometry. Strong loose cough. CARDIOVASCULAR: S1, S2 present. Regular rate and rhythm, sinus rhythm on telemetry, heart rate 74 bpm. Sternum stable. Palpable peripheral pulses bilaterally. Generalized edema present, upper extremities greater than lower extremities. No calf pain or tenderness noted. Heart hugger in place with patient occasionally demonstrating appropriate use when instructed. Antiembolism stockings, SCDs present. GASTROINTESTINAL: Abdomen soft, nontender, nondistended. Active bowel sounds present 4 quadrants. Tolerating diet. Positive flatus, bowel movement GENITOURINARY: Woods present draining clear, yellow urine. Output overnight 40-75 mL per hour, 1210 mL in the last 24 hours INTEGUMENTARY: Skin is warm and dry. Midline sternal incision is well approximated and covered with dry intact dressing. Bilateral lower extremity EVH sites well approximated without redness, left radial artery harvest sites clean, dry and intact. No redness or drainage present. NEUROLOGIC: Cranial nerves II through XII intact. MUSKULOSKELETAL: Able to move all extremities, strength equal bilaterally. PSYCHIATRIC: Alert and oriented to person place and time, appropriate affect, intact judgment and insight. - Allied health notes Allied health notes reviewed: nursing - Labs CBC & Chem 7: 04/15/22 06:17 04/15/22 06:17 Labs: Abnormal Lab Results - Last 24 Hours (Table) 04/14/22 04/14/22 04/14/22 Range/Units 08:10 08:10 11:28 WBC 11.8 H (3.8-10.6) k/uL RBC 2.92 L (4.30-5.90) m/uL Hgb 7.4 L (13.0-17.5) gm/dL Hct 23.5 L (39.0-53.0) % MCH (25.0-35.0) pg MCHC (31.0-37.0) g/dL RDW 17.0 H (11.5-15.5) % Plt Count 126 L (150-450) k/uL Neutrophils # 10.2 H (1.3-7.7) k/uL Lymphocytes # 0.9 L (1.0-4.8) k/uL Chloride 109 H (98-107) mmol/L Carbon Dioxide 21 L (22-30) mmol/L BUN 40 H (9-20) mg/dL Creatinine (0.66-1.25) mg/dL Glucose 187 H (74-99) mg/dL POC Glucose (mg/dL) 204 H (70-110) mg/dL Calcium 7.6 L (8.4-10.2) mg/dL Total Protein 4.8 L (6.3-8.2) g/dL Albumin 3.0 L (3.5-5.0) g/dL 04/14/22 04/14/22 04/15/22 Range/Units 17:05 20:29 02:25 WBC (3.8-10.6) k/uL RBC (4.30-5.90) m/uL Hgb (13.0-17.5) gm/dL Hct (39.0-53.0) % MCH (25.0-35.0) pg MCHC (31.0-37.0) g/dL RDW (11.5-15.5) % Plt Count (150-450) k/uL Neutrophils # (1.3-7.7) k/uL Lymphocytes # (1.0-4.8) k/uL Chloride (98-107) mmol/L Carbon Dioxide (22-30) mmol/L BUN (9-20) mg/dL Creatinine (0.66-1.25) mg/dL Glucose (74-99) mg/dL POC Glucose (mg/dL) 192 H 196 H 180 H (70-110) mg/dL Calcium (8.4-10.2) mg/dL Total Protein (6.3-8.2) g/dL Albumin (3.5-5.0) g/dL 04/15/22 04/15/22 04/15/22 Range/Units 06:17 06:17 06:30 WBC 14.9 H (3.8-10.6) k/uL RBC 3.32 L (4.30-5.90) m/uL Hgb 8.2 L (13.0-17.5) gm/dL Hct 26.6 L (39.0-53.0) % MCH 24.7 L (25.0-35.0) pg MCHC 30.8 L (31.0-37.0) g/dL RDW 17.2 H (11.5-15.5) % Plt Count (150-450) k/uL Neutrophils # (1.3-7.7) k/uL Lymphocytes # (1.0-4.8) k/uL Chloride 108 H (98-107) mmol/L Carbon Dioxide 21 L (22-30) mmol/L BUN 43 H (9-20) mg/dL Creatinine 1.31 H (0.66-1.25) mg/dL Glucose 148 H (74-99) mg/dL POC Glucose (mg/dL) 163 H (70-110) mg/dL Calcium 7.8 L (8.4-10.2) mg/dL Total Protein 4.9 L (6.3-8.2) g/dL Albumin 3.1 L (3.5-5.0) g/dL - Imaging and Cardiology Chest x-ray: report reviewed, image reviewed Assessment and Plan Assessment: 1. Coronary artery disease, status post four-vessel off-pump CABG 2. History of hypertension, currently hypotensive on dopamine 3. Hyperlipidemia, treated, cholesterol 157, LDL 85, triglycerides 169 4. Insulin-dependent diabetes, preoperative hemoglobin A1c 9.4% 5. Previous tobacco dependence 6. Mild COPD, preoperative FEV1 62% of predicted 7. Asthma 8. Liver cirrhosis 9. Leonard's esophagus 10. PAD 11. Melanoma skin cancer 12. Chronic iron deficiency anemia 13. Essential tremors 14. Depression 15. Family history of coronary artery disease 16. Postoperative acute blood loss anemia, expected given hemodilution and preoperative anemia Plan: 1. Continue aspirin, statin, Plavix, and beta yolette. Will increase beta yolette as tolerated. 2. Decrease lasix 20 mg IVP Q 12 hours. 3. Continue amiodarone for A. fib prophylaxis, ChadsVasc 5. 4. Wean O2 as tolerated. Encourage incentive spirometry is 10 times every hour while awake. Bronchodilators per pulmonology. 5. Increase activity, ambulate as tolerated. PT/OT/cardiac rehab following. 6. Will monitor daily labs and chest x-rays. Electrolyte replacement per protocol. 7. GI/DVT prophylaxis. 8. Insulin management per primary care service, patient needs tighter blood sugar control. Patient is diabetic, normally on insulin pump, and his is s upposed to bring his insulin pump today. 9. Pain control with current medication regimen. Avoid narcotics. 10. Discontinue Woods catheter. May bladder scan every 6 hours and when necessary postvoid residual. If greater than or equal to 300 mL of urine may straight cath. 11. Strict accurate intake and output, daily weights 12. Dr. Duron was consulted for evaluation for inpatient rehab. Social work was consulted. 13. Keep in ICU for another 24 hours for close monitoring. 14. More recommendations to follow based on patient's clinical course. Time with Patient: Greater than 30
--- NOTE | 2022-04-15 10:37 | P.PN ---
Subjective Progress Note Date: 04/15/22 This is a 77-year-old male patient with a known history of diabetes mellitus, melanoma, Leonard's esophagus, Parkinson tremors, cirrhosis of the liver, former smoker coronary artery disease. He had undergone cardiac catheterization on 03/23/2022 and was found to have calcified coronary arteries. Critical stenosis involving the proximal LAD and the first diagonal branch, severe stenosis in the first and second OM. Moderate to severe disease in the right PLV. He was recommended coronary artery bypass surgery. He was brought in today electively for the procedure. He received CABG 4 with a SANTA to the LAD, left radial artery to the first obtuse marginal, saphenous vein graft to first diagonal and a saphenous vein graft to the posterior lateral branch of the RCA. Litigation a left atrial appendage with Atricure clamp. 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 He is intubated on the mechanical ventilator with assist-control mode at the rate of 12, tidal volume 500, FiO2 50% and a PEEP of 5. Arterial blood gases on 100% FiO2 revealed a P O2 of 286, pCO2 43, pH 7.33. He has normal saline at 50 MLS per hour. Nitroglycerin drip at 5 mcg/m. Propofol is at 10 mcg/kg/m. Insulin drip at 3 units per hour. Pending amiodarone drip at 1 mg/m. Right IJ Whitehall-Javi catheter in place. His cardiac output is currently 6.2. Cardiac index 2.8. PA pressure 41/1. CVP 16. Core temperature of 95.5. Warming blanket is applied. Heart hugger in place. Dressing dry and intact. Left pleural and mediastinal chest tubes in place. White count 7.8. Hemoglobin 7.2. Platelets 104. INR 1.4. Sodium 142. Potassium 4.1. BUN 14. Creatinine 0.88. Glucose 117. Chest x-ray reveals tubes and lines in satisfactory position. Small bilateral effusions. No pneum othorax. The patient is seen today 04/12/2022 in follow-up in the intensive care unit. He is currently awake and alert. Sitting up in a chair at the bedside. Maintaining O2 saturations in the 90s on 6 L high flow nasal cannula. At one point during the night he was somewhat obtunded. He was placed on BiPAP for approximately 3 hours with improvement. He was extubated in less than 6 hours. Chest x-ray reveals small bilateral effusions. Persistent airspace opacity in the lateral left lung. Endotracheal tube and gastric tube removed. Mediastinal and left pleural chest tubes remain in place. Whitehall-Javi catheter in place. cardiac output 6.1. Cardiac index 2.8. PA pressure 31/10. CVP 14. white count 20.9. Hemoglobin 8.0. Sodium 139. Potassium 5.3. Chloride 113. Bicarb 19. BUN 18. Creatinine 1.37. Albumin 3.2. Magnesium 1.9. He is working well with the incentive spirometer. He remains on a dopamine drip at 2.5 mcg/kg/m. Amiodarone at 0.5 mg/m. Insulin drip at 4.5 units per hour. Lactated Ringer's at 50 mL per hour. appendectomy is continued on DuoNeb inhalations, Symbicort. Heparin for DVT prophylaxis. The patient is seen today 04/13/2022 in follow-up in the intensive care unit. He is currently sitting up in a chair at the bedside. Awake and alert in no acute distress. He's having some issues with confusion. Pulling at his lines and oxygen. He is maintaining good O2 saturations in the 90s on 4 L/m per nasal cannula. He has lactated Ringer's at 50 MLS per hour. He is continued on dopamine at 3 mcg/kg/m. Postoperative day #2 of his CABG 4. Chest x-ray reveals no evidence of pleural effusion, focal consolidation or pneumothorax. Whitehall-Javi catheter tip remains in place. Left thoracotomy tube in place. Mediastinal chest tubes in place. White count 15.8. Hemoglobin 7.0. Platelets 125. Sodium 134. Potassium 4.6. BUN 28. Creatinine 1.86. Glucose 138. AST 65. ALT 18. He is continued on DuoNeb inhalations, Symbicort. Heparin for DVT prophylaxis. The patient is seen today 04/14/2022 in follow-up in the intensive care unit. He is currently sitting up in a chair at the bedside. Awake and alert in no acute distress. Maintaining O2 saturations in the 90s on 2 L/m per nasal cannula. He remains on dopamine at 2 mcg/kg/m. Normal saline at 20 ML's per hour. This is postoperative day #3. His x-ray shows persistent airspace dise ase in the left lateral lung base most likely atelectasis. Stable left chest tube. No visible pneumothorax. Whitehall-Javi catheter has been removed. White count 11.8. Hemoglobin 7.4. Platelets 126. Sodium 138. Potassium 4.6. Bicarb 21. BUN 40. Creatinine 1.22. He is continued on DuoNeb inhalations, Symbicort. Remains on IV diuretics. Heparin for DVT prophylaxis. The patient is seen today 04/15/2022 in follow-up in the intensive care unit. He is awake and alert in no acute distress. Sitting up in a chair at the bedside. Postoperative day #4. He is maintaining good O2 saturations in the 90s on 2 L/m per nasal cannula. No IV fluids. Chest x-ray reveals no evidence of focal consolidation or pneumothorax. Left-sided chest tube has been removed. White count 14.9. Hemoglobin 8.2 platelets 206. Sodium 138. Potassium 4.0. Bicarb 21. BUN 43. Creatinine 1.31. Glucose 148. He is continued on bronchodilators. Continues to work with the incentive spirometer. Remains on o ral amiodarone. Heparin for DVT prophylaxis. He is on Lasix now 20 mg IV every 12 hours. Currently in a -2.9 L balance. Objective - Vital Signs Vital signs: Vital Signs Temp 97.9 F 04/15/22 08:00 Pulse 71 04/15/22 10:00 Resp 12 04/15/22 10:00 BP 103/58 04/15/22 10:00 Pulse Ox 94 L 04/15/22 10:00 FiO2 21 04/13/22 15:58 Intake & Output 04/14/22 04/15/22 04/15/22 18:59 06:59 18:59 Intake Total 631.435 Output Total 0187 1440 475 Balance -1513.565 -1440 -475 Weight 111 kg Intake: IV 115 0.9NS Pressure Bag 15 Sodium Chloride 0.9% 1, 100 000 ml @ 20 mls/hr IV . Q24H [facility] Rx#:[id number] Intake, IV Titration 186.435 Amount DOPamine DRIP 800 mg In 186.435 Dextrose/Water 1 250ml. bag @ 2 MCG/KG/MIN 4.084 mls/hr IV .Q24H [facility] Rx#: [id number] Oral 330 Output: Chest Tube Drainage 260 left pleural 260 Urine 1885 1440 475 Other: Voiding Method Indwelling Catheter Indwelling Catheter ABP, PAP, CO, CI - Last Documented Arterial Blood Pressure 73/48 Pulmonary Artery Pressure 38/5 Cardiac Output 5.5 Cardiac Index 2.5 - Exam GENERAL EXAM: Alert, pleasant 77-year-old gentleman, on 2 L nasal cannula, comfortable in no apparent distress. HEAD: Normocephalic. EYES: Normal reaction of pupils, equal size. NOSE: Clear with pink turbinates. THROAT: No erythema or exudates. NECK: No masses, no JVD. CHEST: Sternal dressing dry and intact. Heart hugger in place. LUNGS: Equal air entry with few scattered rhonchis. CVS: S1 and S2 normal with no audible murmur, regular rhythm. ABDOMEN: No hepatosplenomegaly, normal bowel sounds, no guarding or rigidity. SPINE: No scoliosis or deformity SKIN: No rashes CENTRAL NERVOUS SYSTEM: No focal deficits, tone is normal in all 4 extremities. EXTREMITIES: There is no peripheral edema. No clubbing, no cyanosis. Peripheral pulses are intact. - Labs CBC & Chem 7: 04/15/22 06:17 04/15/22 06:17 Labs: Abnormal Lab Results - Last 24 Hours (Table) 04/14/22 04/14/22 04/14/22 Range/Units 11:28 17:05 20:29 WBC (3.8-10.6) k/uL RBC (4.30-5.90) m/uL Hgb (13.0-17.5) gm/dL Hct (39.0-53.0) % MCH (25.0-35.0) pg MCHC (31.0-37.0) g/dL RDW (11.5-15.5) % Chloride (98-107) mmol/L Carbon Dioxide (22-30) mmol/L BUN (9-20) mg/dL Creatinine (0.66-1.25) mg/dL Glucose (74-99) mg/dL POC Glucose (mg/dL) 204 H 192 H 196 H (70-110) mg/dL Calcium (8.4-10.2) mg/dL Total Protein (6.3-8.2) g/dL Albumin (3.5-5.0) g/dL 04/15/22 04/15/22 04/15/22 Range/Units 02:25 06:17 06:17 WBC 14.9 H (3.8-10.6) k/uL RBC 3.32 L (4.30-5.90) m/uL Hgb 8.2 L (13.0-17.5) gm/dL Hct 26.6 L (39.0-53.0) % MCH 24.7 L (25.0-35.0) pg MCHC 30.8 L (31.0-37.0) g/dL RDW 17.2 H (11.5-15.5) % Chloride 108 H (98-107) mmol/L Carbon Dioxide 21 L (22-30) mmol/L BUN 43 H (9-20) mg/dL Creatinine 1.31 H (0.66-1.25) mg/dL Glucose 148 H (74-99) mg/dL POC Glucose (mg/dL) 180 H (70-110) mg/dL Calcium 7.8 L (8.4-10.2) mg/dL Total Protein 4.9 L (6.3-8.2) g/dL Albumin 3.1 L (3.5-5.0) g/dL 04/15/22 04/15/22 Range/Units 06:30 09:01 WBC (3.8-10.6) k/uL RBC (4.30-5.90) m/uL Hgb (13.0-17.5) gm/dL Hct (39.0-53.0) % MCH (25.0-35.0) pg MCHC (31.0-37.0) g/dL RDW (11.5-15.5) % Chloride (98-107) mmol/L Carbon Dioxide (22-30) mmol/L BUN (9-20) mg/dL Creatinine (0.66-1.25) mg/dL Glucose (74-99) mg/dL POC Glucose (mg/dL) 163 H 161 H (70-110) mg/dL Calcium (8.4-10.2) mg/dL Total Protein (6.3-8.2) g/dL Albumin (3.5-5.0) g/dL Assessment and Plan Assessment: Coronary artery disease status post coronary artery bypass grafting 4 with a SANTA to the LAD, left radial artery graft to the first obtuse marginal, saphenous vein graft to the first diagonal, saphenous vein graft to the posterior lateral branch of the RCA. Left atrial appendage clip. Postoperative day #4. Hypoxemic respiratory failure secondary to above, expected outcome of surgery, improved and currently on 2 L nasal cannula Anemia, expected outcome of surgery, current hemoglobin 8.2 Hypertension, history of Hyperlipidemia History of melanoma of the left eyelid, resected Leonard's esophagus Parkinson tremors Former smoker, quit 30 years ago Chronic obstructive pulmonary disease Plan: The patient was seen and evaluated Chest x-ray, labs and medications reviewed Titrate the FiO2 as tolerated Encourage increased use of the incentive spirometer Increase his activity as tolerated The plan is for possible inpatient rehabilitation post discharge We'll continue to follow I have personally seen and examined the patient, performed the documentation and the assessment and plan as written. Number of minutes spent on the visit: 10.
--- NOTE | 2022-04-15 11:47 | P.PN ---
Subjective Progress Note Date: 04/15/22 Patient is 77-year-old male with multivessel coronary artery disease, cirrhosis, insulin-dependent diabetes on an insulin pump, and multiple other comorbid conditions who presented for quadruple vessel bypass. Patient seen and examined at bedside. He is sitting in the chair. He is less confused than yesterday. He is having some chest pain and mild shortness of breath. General: non toxic, no distress, appears at stated age Derm: warm, dry Head: atraumatic, normocephalic, symmetric Eyes: EOMI, no lid lag, anicteric sclera Mouth: no lip lesion, mucus membranes moist Cardiovascular: S1S2 reg, no murmur, positive posterior tibial pulse bilateral, Lungs: Decreased bs bilateral, no rhonchi, no rales , no accessory muscle use Abdominal: soft, nontender to palpation, no guarding, no appreciable organomegaly Ext: no gross muscle atrophy, trace edema, no contractures Neuro: CN II-XI grossly intact, no focal neuro deficits Psych: alert, oriented, appropriate affect Assessment and Plan: Severe multivessel coronary artery disease Status post CABG 4 -Post CABG 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 -Aspirin and Plavix, and statin -Amiodarone drip and transitioned to oral -Pain control and antiemetics -Subcu heparin for DVT prophylaxis Insulin-dependent diabetes, on insulin pump - SSI, fixed dose insulin, increase levemir - follow BS - hold insulin pump - Basal [id number] 2.6 [id number] 4.6 - Carb ratio 2.5 - can have insulin pump at inpatient rehab Postop anemia, anticipated outcome of surgery -Follow CBC -No indication for transfusion at this time HTN - BP managed by CT surgery Leukocytosis Likely reactive, improving Anemia, thro Acute kidney injury, resolved thrombocytopenia, resolved Chronic: History of cirrhosis History of Leonard's esophagus History of iron deficiency anemia Asthma Thank you for allowing us to participate in the care of this pleasant patient. Do not hesitate to contact us with questions. Someone can be reached from the [facility] hospitalist group all hours of the day at [phone] or via perfect serve. Objective - Vital Signs Vital signs: Vital Signs Temp 97.9 F 04/15/22 08:00 Pulse 71 04/15/22 10:00 Resp 12 04/15/22 10:00 BP 103/58 04/15/22 10:00 Pulse Ox 94 L 04/15/22 10:00 FiO2 21 04/13/22 15:58 Intake & Output 04/14/22 04/15/22 04/15/22 18:59 06:59 18:59 Intake Total 631.435 Output Total 2145 1440 475 Balance -1513.565 -1440 -133 Weight 111 kg Intake: IV 115 0.9NS Pressure Bag 15 Sodium Chloride 0.9% 1, 100 000 ml @ 20 mls/hr IV . Q24H [facility] Rx#:[id number] Intake, IV Titration 186.435 Amount DOPamine DRIP 800 mg In 186.435 Dextrose/Water 1 250ml. bag @ 2 MCG/KG/MIN 4.084 mls/hr IV .Q24H [facility] Rx#: [id number] Oral 330 Output: Chest Tube Drainage 260 left pleural 260 Urine 1885 1440 475 Other: Voiding Method Indwelling Catheter Indwelling Catheter Indwelling Catheter ABP, PAP, CO, CI - Last Documented Arterial Blood Pressure 73/48 Pulmonary Artery Pressure 38/5 Cardiac Output 5.5 Cardiac Index 2.5 - Labs CBC & Chem 7: 04/15/22 06:17 04/15/22 06:17 Labs: Abnormal Lab Results - Last 24 Hours (Table) 04/14/22 04/14/22 04/15/22 Range/Units 17:05 20:29 02:25 WBC (3.8-10.6) k/uL RBC (4.30-5.90) m/uL Hgb (13.0-17.5) gm/dL Hct (39.0-53.0) % MCH (25.0-35.0) pg MCHC (31.0-37.0) g/dL RDW (11.5-15.5) % Chloride (98-107) mmol/L Carbon Dioxide (22-30) mmol/L BUN (9-20) mg/dL Creatinine (0.66-1.25) mg/dL Glucose (74-99) mg/dL POC Glucose (mg/dL) 192 H 196 H 180 H (70-110) mg/dL Calcium (8.4-10.2) mg/dL Total Protein (6.3-8.2) g/dL Albumin (3.5-5.0) g/dL 04/15/22 04/15/22 04/15/22 Range/Units 06:17 06:17 06:30 WBC 14.9 H (3.8-10.6) k/uL RBC 3.32 L (4.30-5.90) m/uL Hgb 8.2 L (13.0-17.5) gm/dL Hct 26.6 L (39.0-53.0) % MCH 24.7 L (25.0-35.0) pg MCHC 30.8 L (31.0-37.0) g/dL RDW 17.2 H (11.5-15.5) % Chloride 108 H (98-107) mmol/L Carbon Dioxide 21 L (22-30) mmol/L BUN 43 H (9-20) mg/dL Creatinine 1.31 H (0.66-1.25) mg/dL Glucose 148 H (74-99) mg/dL POC Glucose (mg/dL) 163 H (70-110) mg/dL Calcium 7.8 L (8.4-10.2) mg/dL Total Protein 4.9 L (6.3-8.2) g/dL Albumin 3.1 L (3.5-5.0) g/dL 04/15/22 Range/Units 09:01 WBC (3.8-10.6) k/uL RBC (4.30-5.90) m/uL Hgb (13.0-17.5) gm/dL Hct (39.0-53.0) % MCH (25.0-35.0) pg MCHC (31.0-37.0) g/dL RDW (11.5-15.5) % Chloride (98-107) mmol/L Carbon Dioxide (22-30) mmol/L BUN (9-20) mg/dL Creatinine (0.66-1.25) mg/dL Glucose (74-99) mg/dL POC Glucose (mg/dL) 161 H (70-110) mg/dL Calcium (8.4-10.2) mg/dL Total Protein (6.3-8.2) g/dL Albumin (3.5-5.0) g/dL
[2022-04-15 12:04] LABS: Glucose,Whole Blood 157 mg/dL (70-110)
--- NOTE | 2022-04-15 12:24 | PN ---
PROGRESS NOTE SUBJECTIVE: Mr. Eastman is in sinus rhythm. His blood pressure is better. Creatinine has improved. He is off dopamine. He is clinically doing better. His acidosis has resolved. He is post bypass surgery. OBJECTIVE: VITAL SIGNS: Stable. HEART: S1 and S2 with a short systolic murmur. LUNGS: Reveal improved air entry. ABDOMEN: Unchanged. LOWER EXTREMITIES: Unchanged. PLAN: To continue current medications and incentive spirometry. Prognosis remains good. MMODL / IJN: [id number] /
--- NOTE | 2022-04-15 12:44 | P.CONS ---
History of Present Illness - Chief Complaint Cardiac debility - History of Present Illness I had the opportunity to see patient for inpatient rehab consultation today. Patient admitted to Dr. Dorman April 11 for elective four-vessel CABG. Seen in ICU by Dr. Vazquez. Seen medically by Dr. Razo. Multiple chest x-rays followed demonstrate thoracotomy and left pleural effusion. Has started therapy. PT reports moderate assistance bed mobility, transfer, gait 25 feet, hand-held assist. OT reports supervision for feeding, minimal assist for grooming, moderate assistance for upper dressing and total assist for lower dressing, bathing, toileting. Previous functional history as elicited from patient and : 77-year-old right-handed white male who is lives in one form with . Both are retired. generally does all the cooking, laundry, driving. Patient independent with sitdown or standup shower. Uses standard cane for gait outside of house. PCP is Dr. Vazquez. Denies tobacco has occasional drink. Review of Systems Review of systems: ENT: Denies sneezes or discharge. Eyes: Denies discharge or photophobia. Cardiac: Some sternal discomfort. Pulmonary: shortness of breath. Gastrointestinal: Denies nausea, emesis, constipation, diarrhea. Genitourinary: Denies discharge or frequency. Musculoskeletal: Denies muscle or bone aches. Neurologic: Generalized weakness. reports that legs have been weak for quite some time. Endocrine: Denies shakes or sweats. Oncology: Denies cancers. Dermatologic: Denies rash, itching, pruritus. ALLERGY/immunology: Denies sneezes, rashes. Past Medical History Past Medical History: Asthma, Cancer, Chest Pain / Angina, Diabetes Mellitus, GERD/Reflux, Hearing Disorder / Deafness, Hyperlipidemia, Hypertension, Liver Disease, Osteoarthritis (OA), Thyroid Disorder Additional Past Medical History / Comment(s): HX MELANOMA LEFT EYELID, HX IRON IFUSIONS(Last 2017), DALY'S ESOPHAGUS, PARKINSONS, TINNITUS IN LEFT EAR, hx. DARK BLOODY STOOLS-last few months ago, FATTY LIVER-possible cirrhosis per pt- sees [facility], LIMITED ROM RIGHT WRIST FROM SURGERY, hx Hyperthyroid. History of Any Multi-Drug Resistant Organisms: None Reported Past Surgical History: Appendectomy, Heart Catheterization, Hernia Repair, Orthopedic Surgery Additional Past Surgical History / Comment(s): COLONOSCOPY, MELANOMA LEFT EYELID WITH SKIN GRAFT, RIGHT INGUINAL HERNIA & UMBILICAL HERNIA REPAIRS, CATARACT RIGHT EYE, HIATAL HERNIA, RIGHT WRIST FUSION, left knee surgery. Past Anesthesia/Blood Transfusion Reactions: No Reported Reaction Past Psychological History: Anxiety, Depression Smoking Status: Former smoker Past Alcohol Use History: Occasional Additional Past Alcohol Use History / Comment(s): QUIT SMOKING ABOUT 1984, SMOKED < 1 PPD. SMOKED APPROX 20 YRS. Past Drug Use History: None Reported - Past Family History Sister(s) Family Medical History: Cancer Additional Family Medical History / Comment(s): Breast Cancer. Mother Family Medical History: Cancer, Hypertension Additional Family Medical History / Comment(s): COLON CANCER. Father Family Medical History: Coronary Artery Disease (CAD), Diabetes Mellitus, Myocardial Infarction (MS) Additional Family Medical History / Comment(s): HEART PROBLEMS. Medications and Allergies Home Medications Medication Instructions Recorded Confirmed Type atenoloL [Tenormin] 25 mg PO HS 11/03/14 04/11/22 History Omeprazole [PriLOSEC] 20 mg PO BID 09/06/17 04/01/22 History Primidone [Mysoline] 250 mg PO BID 09/06/17 04/01/22 History Loperamide [Imodium] 2 mg PO QID PRN 03/30/21 04/01/22 History Albuterol Sulfate [Proair Hfa] 2 puff INHALATION QID PRN 04/21/21 04/01/22 History DULoxetine HCL 60 mg PO DAILY 04/21/21 04/01/22 History Pregabalin [Lyrica] 300 mg PO HS 04/21/21 04/01/22 History Aspirin 81 mg PO HS 03/22/22 04/01/22 History Insulin Aspart (For Pump) [NovoLOG 0.01 unit SQ-PUMP CONTINUOUS 03/22/22 04/11/22 History (For Pump)] Isosorbide Mononitrate [Isosorbide 30 mg PO HS 03/22/22 04/01/22 History Mononitrate ER] Nitroglycerin Sl Tabs [Nitrostat] 0.4 mg SUBLINGUAL Q5M PRN #25 tab 03/23/22 04/01/22 Rx Ascorbic Acid [Vitamin C] 500 mg PO DAILY 04/01/22 04/01/22 History Atorvastatin [Lipitor] 40 mg PO HS 04/01/22 04/01/22 History Budesonide/Glycopyr/Formoterol 1 puff INHALATION BID 04/01/22 04/01/22 History [Breztri Aerosphere Inhaler] Cholecalciferol [Vitamin D3 (25 25 mcg PO DAILY 04/01/22 04/01/22 History Mcg = 1000 Iu)] Allergies Allergy/AdvReac Type Severity Reaction Status Date / Time Penicillins Allergy Rash/Hives Verified 04/01/22 14:51 Physical Exam Vitals: Vital Signs Temp Pulse Resp BP Pulse Ox 04/15/22 12:09 65 04/15/22 11:58 63 04/15/22 11:00 66 25 H 104/52 04/15/22 10:00 71 12 103/58 94 L 04/15/22 09:23 75 04/15/22 09:05 75 04/15/22 09:00 74 20 129/53 96 04/15/22 08:00 97.9 F 75 16 114/66 96 04/15/22 07:00 71 12 121/60 96 04/15/22 06:00 71 15 110/53 96 04/15/22 05:00 67 18 116/51 95 04/15/22 04:00 98.3 F 67 17 108/50 97 04/15/22 03:00 66 18 117/52 97 04/15/22 02:00 66 17 113/57 97 04/15/22 01:00 64 18 123/53 96 04/15/22 00:00 97.7 F 65 13 129/68 97 04/14/22 23:00 71 14 131/66 97 04/14/22 22:00 74 18 134/66 96 04/14/22 21:00 74 20 128/66 95 04/14/22 20:00 98.5 F 73 17 123/62 93 L 04/14/22 19:43 72 04/14/22 19:28 70 04/14/22 19:00 72 13 133/68 95 04/14/22 18:00 71 19 117/93 96 04/14/22 17:00 70 20 133/68 96 04/14/22 16:28 68 04/14/22 16:16 67 04/14/22 16:00 98.6 F 68 16 136/65 97 04/14/22 15:00 68 17 131/64 97 04/14/22 14:00 68 20 132/62 97 04/14/22 13:00 67 20 128/64 98 Intake and Output 04/14/22 04/15/22 04/15/22 22:59 06:59 14:59 Intake Total 240 Output Total 1295 1005 475 Balance -1054 -1001 -946 Intake: Oral 240 Output: Urine 1295 1005 475 Other: Voiding Method Indwelling Catheter Indwelling Catheter Indwelling Catheter Weight 111 kg Skin: Atrophic, intact. General: Overweight build and comfortable appearance. Head: Normocephalic, atraumatic. Eyes: Symmetric. Pupils equal round. Ears: Symmetric. Hearing within normal limits. Mouth: Clear. Neck: Supple. Carotid without bruit. Cardiac: Clean and dressed sternotomy scar, heart [place]. Lungs: Clear anteriorly and posteriorly. Abdomen: Soft active nontender, overweight. Extremities: Normal tone. Neurological: Mental status: Alert, cooperative, pleasant. Cranial nerves: Symmetric facial tone and trapezius. Motor: Active movement all 4 limbs. Arms about antigravity in legs less than antigravity. Sensation: Intact throughout. DTRs: Symmetric and equal throughout. Mobility: Patient fatigued and did not attempt to stand from Do chair at this time. Results CBC & Chem 7: 04/15/22 06:17 04/15/22 06:17 Labs: Abnormal Lab Results - Last 24 Hours (Table) 04/14/22 04/14/22 04/15/22 Range/Units 17:05 20:29 02:25 WBC (3.8-10.6) k/uL RBC (4.30-5.90) m/uL Hgb (13.0-17.5) gm/dL Hct (39.0-53.0) % MCH (25.0-35.0) pg MCHC (31.0-37.0) g/dL RDW (11.5-15.5) % Chloride (98-107) mmol/L Carbon Dioxide (22-30) mmol/L BUN (9-20) mg/dL Creatinine (0.66-1.25) mg/dL Glucose (74-99) mg/dL POC Glucose (mg/dL) 192 H 196 H 180 H (70-110) mg/dL Calcium (8.4-10.2) mg/dL Total Protein (6.3-8.2) g/dL Albumin (3.5-5.0) g/dL 04/15/22 04/15/22 04/15/22 Range/Units 06:17 06:17 06:30 WBC 14.9 H (3.8-10.6) k/uL RBC 3.32 L (4.30-5.90) m/uL Hgb 8.2 L (13.0-17.5) gm/dL Hct 26.6 L (39.0-53.0) % MCH 24.7 L (25.0-35.0) pg MCHC 30.8 L (31.0-37.0) g/dL RDW 17.2 H (11.5-15.5) % Chloride 108 H (98-107) mmol/L Carbon Dioxide 21 L (22-30) mmol/L BUN 43 H (9-20) mg/dL Creatinine 1.31 H (0.66-1.25) mg/dL Glucose 148 H (74-99) mg/dL POC Glucose (mg/dL) 163 H (70-110) mg/dL Calcium 7.8 L (8.4-10.2) mg/dL Total Protein 4.9 L (6.3-8.2) g/dL Albumin 3.1 L (3.5-5.0) g/dL 04/15/22 04/15/22 Range/Units 09:01 12:03 WBC (3.8-10.6) k/uL RBC (4.30-5.90) m/uL Hgb (13.0-17.5) gm/dL Hct (39.0-53.0) % MCH (25.0-35.0) pg MCHC (31.0-37.0) g/dL RDW (11.5-15.5) % Chloride (98-107) mmol/L Carbon Dioxide (22-30) mmol/L BUN (9-20) mg/dL Creatinine (0.66-1.25) mg/dL Glucose (74-99) mg/dL POC Glucose (mg/dL) 161 H 157 H (70-110) mg/dL Calcium (8.4-10.2) mg/dL Total Protein (6.3-8.2) g/dL Albumin (3.5-5.0) g/dL Assessment and Plan Plan: Impression: Cardiac debility with recent CABG four-vessel. I Plan: At this time PT and OT are ongoing. Safety concerns noted but currently with endurance issues. We will not be able tolerate full inpatient rehab program today but hopefully this will manager change weekend. We'll repeat continue to review patient's case daily for possible need and benefit of inpatient rehab. This was discussed with patient and and they appeared agreeable if necessary.
[2022-04-15 16:31] LABS: Glucose,Whole Blood 212 mg/dL (70-110)
[2022-04-15] MEDS: TAMSULOSIN 0.4 MG CAP.ER.24H PO SCH (17:08)
[2022-04-15 19:54] LABS: Glucose,Whole Blood 213 mg/dL (70-110)
[2022-04-15] MEDS: ASPIRIN 81 MG PO SCH (21:17)
[2022-04-15] MEDS: SENNOSIDES-DOCUSATE SODIUM 1 EACH TAB PO SCH (21:17)
[2022-04-15] MEDS: ATORVASTATIN 40 MG TAB PO SCH (21:17)
[2022-04-16] MEDS: HEPARIN SODIUM,PORCINE/PF 5,000 UNIT/0.5 ML SYRINGE SQ SCH ×3 (00:19→17:18)
[2022-04-16] MEDS: PRIMIDONE 250 MG TAB PO SCH ×3 (00:19→21:39)
[2022-04-16 02:12] LABS: Glucose,Whole Blood 138 mg/dL (70-110)
[2022-04-16] MEDS: SODIUM CHLORIDE 0.9% 1,000 ML IV SCH (06:23)
[2022-04-16 06:44] LABS: Glucose,Whole Blood 157 mg/dL (70-110)
[2022-04-16] MEDS: INSULIN ASPART (NovoLOG) 100 UNIT/ML VIAL SQ SCH ×7 (06:53→21:40)
[2022-04-16] MEDS: PANTOPRAZOLE 40 MG TABLET PO SCH ×2 (06:53→17:19)
[2022-04-16] MEDS: FERROUS SULFATE 325 MG TAB PO SCH ×2 (06:53→17:19)
[2022-04-16 07:02] LABS: Anisocytosis Slight; HCT 25.2 % (39.0-53.0); Hypochromasia Marked; MCH 25.6 pg (25.0-35.0); MCHC 31.6 g/dL (31.0-37.0); MCV 81.1 fL (80.0-100.0); Mean Platelet Volume 8.3; Platelet Count 153 k/uL (150-450); RBC 3.11 m/uL (4.30-5.90); RDW 18.1 % (11.5-15.5); WBC 10.3 k/uL (3.8-10.6)
[2022-04-16 07:21] LABS: Albumin 2.9 g/dL (3.5-5.0); Potassium 3.9 mmol/L (3.5-5.1); Total Protein 4.9 g/dL (6.3-8.2)
[2022-04-16 07:23] LABS: Calcium 7.7 mg/dL (8.4-10.2); Total Bilirubin 1.2 mg/dL (0.2-1.3)
[2022-04-16] MEDS ORDERED: POTASSIUM BICARBONATE/CIT AC 20 MEQ TABLET.EFF PO ONE (07:30)
--- NOTE | 2022-04-16 07:38 | P.PN ---
Subjective Progress Note Date: 04/16/22 Principal diagnosis: Coronary artery disease. Previous medical history of hypertension, hyperlipidemia, insulin-dependent diabetes, previous tobacco dependence, mild COPD, asthma, liver cirrhosis, Leonard's esophagus, PAD, melanoma skin cancer, chronic iron deficiency anemia, essential tremors, depression, and family history of coronary artery disease POD #5 off-pump coronary artery bypass grafting 4 with left internal mammary artery to the left anterior descending artery, left radial artery graft to the first obtuse marginal artery, reverse saphenous vein graft to the first diagonal artery, reverse saphenous vein graft to the posterior lateral branch of the right coronary artery, ligation of the left atrial appendage with a 35 mm AtriCure clamp, endovascular vein harvest of bilateral greater saphenous vein and endovascular left radial artery harvest. Intraoperative transesophageal echocardiogram performed by anesthesia. Postoperative acute blood loss anemia, expected given hemodilution and preoperative anemia The patient was seen and examined this morning sitting up in a recliner on the intensive care unit in no acute distress. Remains in sinus rhythm, hemodynamically stable. Denies chest pain, shortness of breath. Oriented to person, place, time and situation. Patient has significant weakness/debility, was seen history by Dr. Duron, likely will need rehab at discharge. Woods catheter was discontinued yesterday, patient unable to void with residual 700 mL, Woods was reinserted and patient started on Flomax. Labs and chest x-ray reviewed. No new concerns. Objective - Vital Signs Vital signs: Vital Signs Temp 97.9 F 04/16/22 04:00 Pulse 80 04/16/22 06:00 Resp 25 H 04/16/22 06:00 BP 103/52 04/16/22 06:00 Pulse Ox 97 04/16/22 05:00 FiO2 21 04/13/22 15:58 Intake & Output 04/15/22 04/16/22 04/16/22 18:59 06:59 18:59 Intake Total 250 Output Total 1245 1035 Balance -1245 -785 Weight 109.1 kg Intake: Oral 250 Output: Urine 1245 1035 Other: Voiding Method Indwelling Catheter Indwelling Catheter ABP, PAP, CO, CI - Last Documented Arterial Blood Pressure 73/48 Pulmonary Artery Pressure 38/5 Cardiac Output 5.5 Cardiac Index 2.5 - Exam CONSTITUTIONAL: Appears comfortable, cooperative, no acute distress RESPIRATORY: Lungs sounds diminished bilaterally. Respirations even, nonlabored. Currently on 3L NC with oxygen saturation 97%. Able to achieve 1500 mL on incentive spirometry. Strong cough. CARDIOVASCULAR: S1, S2 present. Regular rate and rhythm, sinus rhythm on telemetry. Sternum stable. Palpable peripheral pulses bilaterally. Generalized edema present, less than previous. No calf pain or tenderness noted. Heart hugger in place with patient occasionally demonstrating appropriate use when instructed. Antiembolism stockings, SCDs present. GASTROINTESTINAL: Abdomen soft, nontender, nondistended. Active bowel sounds present 4 quadrants. Tolerating diet. Positive bowel movement 04/15 GENITOURINARY: Woods present draining clear, yellow urine. Output overnight 50-200 mL per hour, 2230 mL in the last 24 hours INTEGUMENTARY: Skin is warm and dry. Anterior chest incision well approximated and covered with dry intact dressing. Bilateral lower extremity EVH sites well approximated without redness NEUROLOGIC: Cranial nerves II through XII intact MUSKULOSKELETAL: Able to move all extremities, strength equal bilaterally PSYCHIATRIC: Alert and oriented to person place and time, appropriate affect - Allied health notes Allied health notes reviewed: nursing - Labs CBC & Chem 7: 04/16/22 06:40 04/16/22 06:40 Labs: Abnormal Lab Results - Last 24 Hours (Table) 04/15/22 04/15/22 04/15/22 Range/Units 09:01 12:03 16:30 RBC (4.30-5.90) m/uL Hgb (13.0-17.5) gm/dL Hct (39.0-53.0) % RDW (11.5-15.5) % Chloride (98-107) mmol/L BUN (9-20) mg/dL Glucose (74-99) mg/dL POC Glucose (mg/dL) 161 H 157 H 212 H (70-110) mg/dL Calcium (8.4-10.2) mg/dL Total Protein (6.3-8.2) g/dL Albumin (3.5-5.0) g/dL 04/15/22 04/16/22 04/16/22 Range/Units 19:52 02:11 06:40 RBC 3.11 L (4.30-5.90) m/uL Hgb 8.0 L (13.0-17.5) gm/dL Hct 25.2 L (39.0-53.0) % RDW 18.1 H (11.5-15.5) % Chloride (98-107) mmol/L BUN (9-20) mg/dL Glucose (74-99) mg/dL POC Glucose (mg/dL) 213 H 138 H (70-110) mg/dL Calcium (8.4-10.2) mg/dL Total Protein (6.3-8.2) g/dL Albumin (3.5-5.0) g/dL 04/16/22 04/16/22 Range/Units 06:40 06:42 RBC (4.30-5.90) m/uL Hgb (13.0-17.5) gm/dL Hct (39.0-53.0) % RDW (11.5-15.5) % Chloride 108 H (98-107) mmol/L BUN 40 H (9-20) mg/dL Glucose 154 H (74-99) mg/dL POC Glucose (mg/dL) 157 H (70-110) mg/dL Calcium 7.7 L (8.4-10.2) mg/dL Total Protein 4.9 L (6.3-8.2) g/dL Albumin 2.9 L (3.5-5.0) g/dL - Imaging and Cardiology Chest x-ray: image reviewed Assessment and Plan Assessment: 1. Coronary artery disease, status post four-vessel off-pump CABG 2. History of hypertension, currently hypotensive on dopamine 3. Hyperlipidemia, treated, cholesterol 157, LDL 85, triglycerides 169 4. Insulin-dependent diabetes, preoperative hemoglobin A1c 9.4% 5. Previous tobacco dependence 6. Mild COPD, preoperative FEV1 62% of predicted 7. Asthma 8. Liver cirrhosis 9. Leonard's esophagus 10. PAD 11. Melanoma skin cancer 12. Chronic iron deficiency anemia 13. Essential tremors 14. Depression 15. Family history of coronary artery disease 16. Postoperative acute blood loss anemia, expected given hemodilution and preoperative anemia 17. Urinary retention requiring reinitiation of Woods catheter, Flomax 18. Medical debility Plan: 1. Continue aspirin, statin, Plavix, beta yolette therapy. Will increase beta yolette therapy as tolerated 2. Continue lasix 20 mg IVP Q 12 hours 3. Continue amiodarone for A. fib prophylaxis, ChadsVasc 5, will taper weekly 4. Wean O2 as tolerated. Encourage incentive spirometry is 10 times every hour while awake. Bronchodilators per pulmonology 5. Increase activity, ambulate as tolerated. PT/OT/cardiac rehab consulted 6. Will monitor daily labs and x-rays. Electrolyte replacement per protocol 7. GI/DVT prophylaxis 8. Insulin management per primary care service, patient needs tighter blood sugar control. Patient is diabetic, normally on insulin pump 9. Pain control with current medication regimen. Avoid narcotics 10. Strict accurate intake and output, daily weights 11. Continue Flomax 12. Will add glucerna for nutrition 13. More recommendations to follow
[2022-04-16] MEDS: INSULIN DETEMIR (LEVEMIR) 100 UNIT/ML SYR SQ SCH ×2 (07:57→21:40)
--- NOTE | 2022-04-16 08:24 | XR ---
EXAMINATION TYPE: XR chest 1V portable DATE OF EXAM: 04/16/2022 Comparison: 04/15/2022 Clinical History: 77-year-old male Postoperative CABG Findings: Heart mildly enlarged. Median sternotomy wires along with plate and screw fixation and post-CABG clip s. Mild patchy retrocardiac density is present with blunting of the left costophrenic angle, similar to prior. Impression: Similar mild cardiomegaly with trace left effusion and some patchy retrocardiac atelectasis/infiltrat e.
[2022-04-16] MEDS: CHOLECALCIFEROL 25 MCG (1000 IU) TABLET PO SCH (08:42)
[2022-04-16] MEDS: ASCORBIC ACID 500 MG TAB PO SCH (08:42)
[2022-04-16] MEDS: AMIODARONE 200 MG TAB PO SCH ×2 (08:42→21:39)
[2022-04-16] MEDS: CLOPIDOGREL 75 MG TAB PO SCH (08:43)
[2022-04-16] MEDS: METOPROLOL TARTRATE 25 MG TAB PO SCH ×2 (08:43→21:39)
[2022-04-16] MEDS: FUROSEMIDE 10 MG/ML 2 ML VIAL IV SCH ×2 (08:43→21:39)
[2022-04-16] MEDS: guaiFENesin 600 MG TABLET.ER PO SCH ×2 (08:43→21:39)
[2022-04-16] MEDS: DULoxetine HCL 60 MG CAPSULE.DR PO SCH (08:43)
[2022-04-16] MEDS: IPRATROPIUM-ALBUTEROL 3 ML NEB INHALATION SCH ×4 (08:57→19:34)
[2022-04-16] MEDS: SYMBICORT 160-4.5 MCG INHALER INHALATION SCH ×2 (08:58→19:34)
--- NOTE | 2022-04-16 11:00 | P.PN ---
Subjective Progress Note Date: 04/16/22 Until that the patient is progressing poorly as it relates to physical therapy/mobility. Today, he was a four-person assist to get into a chair as well as to help to stand. Family has informed nursing that he had poor functional status prior to surgery in the first place. Ongoing motivational interviewing to encourage patient to participate more with mobility. Gen: awake, alert HEENT: normocephalic, atraumatic, good hearing acuity, moist mucous membranes Resp: good air exchange, breathing comfortably with no accessory muscle use CVS: good distal perfusion x 4, GI: soft, NTTP, ND : no SPT, no CVAT, rubio catheter is present MSK: Bilateral 1+ pitting edema, no clubbing Neuro: non-focal, moving all extremities Psych: cooperative, euthymic mood Assessment/plan: Severe multivessel coronary artery disease Status post CABG 4 -Post CABG 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 -Aspirin and Plavix, and statin -Amiodarone drip and transitioned to oral -Pain control and antiemetics -Subcu heparin for DVT prophylaxis -PT consult, requires significant encouragement to increase mobility Insulin-dependent diabetes, on insulin pump - SSI, fixed dose insulin, levemir, sugars are stable - follow BS - hold insulin pump - Basal [id number] 2.6 [id number] 4.6 - Carb ratio 2.5 - can have insulin pump at inpatient rehab Postop anemia, anticipated outcome of surgery -Follow CBC -No indication for transfusion at this time HTN - BP managed by CT surgery Leukocytosis Likely reactive, improving Anemia, thro Acute kidney injury, resolved thrombocytopenia, resolved Chronic: History of cirrhosis History of Leonard's esophagus History of iron deficiency anemia Asthma Thank you for allowing us to participate in the care of this pleasant patient. Do not hesitate to contact us with questions. Someone can be reached from the [facility] hospitalist group all hours of the day at [phone] or via [employer] serve. Objective - Vital Signs Vital signs: Vital Signs Temp 98.1 F 04/16/22 08:00 Pulse 92 04/16/22 10:00 Resp 19 04/16/22 10:00 BP 121/41 04/16/22 10:00 Pulse Ox 89 L 04/16/22 10:00 FiO2 21 04/13/22 15:58 Intake & Output 1104/16/22 04/16/22 18:59 06:59 18:59 Intake Total 250 750 Output Total 1244 103 535 Balance -1245 -785 215 Weight 109.1 kg Intake: Oral 250 750 Output: Urine 124 1030 535 Other: Voiding Method Indwelling Catheter Indwelling Catheter ABP, PAP, CO, CI - Last Documented Arterial Blood Pressure 73/48 Pulmonary Artery Pressure 38/5 Cardiac Output 5.5 Cardiac Index 2.5 - Labs CBC & Chem 7: 04/16/22 06:40 04/16/22 06:40 Labs: Abnormal Lab Results - Last 24 Hours (Table) 04/15/22 04/15/22 04/15/22 Range/Units 12:03 16:30 19:52 RBC (4.30-5.90) m/uL Hgb (13.0-17.5) gm/dL Hct (39.0-53.0) % RDW (11.5-15.5) % Chloride (98-107) mmol/L BUN (9-20) mg/dL Glucose (74-99) mg/dL POC Glucose (mg/dL) 157 H 212 H 213 H (70-110) mg/dL Calcium (8.4-10.2) mg/dL Total Protein (6.3-8.2) g/dL Albumin (3.5-5.0) g/dL 04/16/22 04/16/22 04/16/22 Range/Units 02:11 06:40 06:40 RBC 3.11 L (4.30-5.90) m/uL Hgb 8.0 L (13.0-17.5) gm/dL Hct 25.2 L (39.0-53.0) % RDW 18.1 H (11.5-15.5) % Chloride 108 H (98-107) mmol/L BUN 40 H (9-20) mg/dL Glucose 154 H (74-99) mg/dL POC Glucose (mg/dL) 138 H (70-110) mg/dL Calcium 7.7 L (8.4-10.2) mg/dL Total Protein 4.9 L (6.3-8.2) g/dL Albumin 2.9 L (3.5-5.0) g/dL 11/19/22 Range/Units 06:42 RBC (4.30-5.90) m/uL Hgb (13.0-17.5) gm/dL Hct (39.0-53.0) % RDW (11.5-15.5) % Chloride (98-107) mmol/L BUN (9-20) mg/dL Glucose (74-99) mg/dL POC Glucose (mg/dL) 157 H (70-110) mg/dL Calcium (8.4-10.2) mg/dL Total Protein (6.3-8.2) g/dL Albumin (3.5-5.0) g/dL
[2022-04-16 11:25] LABS: Glucose,Whole Blood 172 mg/dL (70-110)
--- NOTE | 2022-04-16 12:15 | P.PN ---
Subjective Progress Note Date: 04/16/22 This is a 77-year-old male patient with a known history of diabetes mellitus, melanoma, Leonard's esophagus, Parkinson tremors, cirrhosis of the liver, former smoker coronary artery disease. He had undergone cardiac catheterization on 03/23/2022 and was found to have calcified coronary arteries. Critical stenosis involving the proximal LAD and the first diagonal branch, severe stenosis in the first and second OM. Moderate to severe disease in the right PLV. He was recommended coronary artery bypass surgery. He was brought in today electively for the procedure. He received CABG 4 with a SANTA to the LAD, left radial artery to the first obtuse marginal, saphenous vein graft to first diagonal and a saphenous vein graft to the posterior lateral branch of the RCA. Litigation a left atrial appendage with Atricure clamp. 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 He is intubated on the mechanical ventilator with assist-control mode at the rate of 12, tidal volume 500, FiO2 50% and a PEEP of 5. Arterial blood gases on 100% FiO2 revealed a P O2 of 286, pCO2 43, pH 7.33. He has normal saline at 50 MLS per hour. Nitroglycerin drip at 5 mcg/m. Propofol is at 10 mcg/kg/m. Insulin drip at 3 units per hour. Pending amiodarone drip at 1 mg/m. Right IJ Lovelady-Javi catheter in place. His cardiac output is currently 6.2. Cardiac index 2.8. PA pressure 41/1. CVP 16. Core temperature of 95.5. Warming blanket is applied. Heart hugger in place. Dressing dry and intact. Left pleural and mediastinal chest tubes in place. White count 7.8. Hemoglobin 7.2. Platelets 104. INR 1.4. Sodium 142. Potassium 4.1. BUN 14. Creatinine 0.88. Glucose 117. Chest x-ray reveals tubes and lines in satisfactory position. Small bilateral effusions. No pneum othorax. The patient is seen today 04/12/2022 in follow-up in the intensive care unit. He is currently awake and alert. Sitting up in a chair at the bedside. Maintaining O2 saturations in the 90s on 6 L high flow nasal cannula. At one point during the night he was somewhat obtunded. He was placed on BiPAP for approximately 3 hours with improvement. He was extubated in less than 6 hours. Chest x-ray reveals small bilateral effusions. Persistent airspace opacity in the lateral left lung. Endotracheal tube and gastric tube removed. Mediastinal and left pleural chest tubes remain in place. Lovelady-Javi catheter in place. cardiac output 6.1. Cardiac index 2.8. PA pressure 31/10. CVP 14. white count 20.9. Hemoglobin 8.0. Sodium 139. Potassium 5.3. Chloride 113. Bicarb 19. BUN 18. Creatinine 1.37. Albumin 3.2. Magnesium 1.9. He is working well with the incentive spirometer. He remains on a dopamine drip at 2.5 mcg/kg/m. Amiodarone at 0.5 mg/m. Insulin drip at 4.5 units per hour. Lactated Ringer's at 50 mL per hour. appendectomy is continued on DuoNeb inhalations, Symbicort. Heparin for DVT prophylaxis. The patient is seen today 04/13/2022 in follow-up in the intensive care unit. He is currently sitting up in a chair at the bedside. Awake and alert in no acute distress. He's having some issues with confusion. Pulling at his lines and oxygen. He is maintaining good O2 saturations in the 90s on 4 L/m per nasal cannula. He has lactated Ringer's at 50 MLS per hour. He is continued on dopamine at 3 mcg/kg/m. Postoperative day #2 of his CABG 4. Chest x-ray reveals no evidence of pleural effusion, focal consolidation or pneumothorax. Lovelady-Javi catheter tip remains in place. Left thoracotomy tube in place. Mediastinal chest tubes in place. White count 15.8. Hemoglobin 7.0. Platelets 125. Sodium 134. Potassium 4.6. BUN 28. Creatinine 1.86. Glucose 138. AST 65. ALT 18. He is continued on DuoNeb inhalations, Symbicort. Heparin for DVT prophylaxis. The patient is seen today 04/14/2022 in follow-up in the intensive care unit. He is currently sitting up in a chair at the bedside. Awake and alert in no acute distress. Maintaining O2 saturations in the 90s on 2 L/m per nasal cannula. He remains on dopamine at 2 mcg/kg/m. Normal saline at 20 ML's per hour. This is postoperative day #3. His x-ray shows persistent airspace dise ase in the left lateral lung base most likely atelectasis. Stable left chest tube. No visible pneumothorax. Lovelady-Javi catheter has been removed. White count 11.8. Hemoglobin 7.4. Platelets 126. Sodium 138. Potassium 4.6. Bicarb 21. BUN 40. Creatinine 1.22. He is continued on DuoNeb inhalations, Symbicort. Remains on IV diuretics. Heparin for DVT prophylaxis. The patient is seen today 04/15/2022 in follow-up in the intensive care unit. He is awake and alert in no acute distress. Sitting up in a chair at the bedside. Postoperative day #4. He is maintaining good O2 saturations in the 90s on 2 L/m per nasal cannula. No IV fluids. Chest x-ray reveals no evidence of focal consolidation or pneumothorax. Left-sided chest tube has been removed. White count 14.9. Hemoglobin 8.2 platelets 206. Sodium 138. Potassium 4.0. Bicarb 21. BUN 43. Creatinine 1.31. Glucose 148. He is continued on bronchodilators. Continues to work with the incentive spirometer. Remains on o ral amiodarone. Heparin for DVT prophylaxis. He is on Lasix now 20 mg IV every 12 hours. Currently in a -2.9 L balance. The patient is seen today 04/16/2022 in follow-up in the intensive care unit. He is awake and alert. Sitting up in a recliner at the bedside. Postoperative day #5. He has need increased encouragement regarding use of the incentive spirometer and cough and deep breathing exercises. He is currently on 3 L nasal cannula. No IV fluids running. Chest x-ray continues to show some atelectasis left lung base. He is continued on Symbicort, DuoNeb inhalations IV diuretics. Heparin for DVT prophylaxis. He remains in a -2.9 L balance. White count 10.3. Hemoglobin 8.0. Sodium 139. Potassium 3.9. BUN 40. Creatinine 1.20. Glucose 154. Objective - Vital Signs Vital signs: Vital Signs Temp 98.1 F 04/16/22 08:00 Pulse 85 04/16/22 12:05 Resp 26 H 04/16/22 11:00 BP 124/57 04/16/22 11:00 Pulse Ox 90 L 04/16/22 11:00 FiO2 50 04/16/22 11:52 Intake & Output 04/15/22 04/16/22 04/16/22 18:59 06:59 18:59 Intake Total 250 750 Output Total 1245 1035 535 Balance -1245 -789 215 Weight 109.1 kg Intake: Oral 250 750 Output: Urine 1245 1035 535 Other: Voiding Method Indwelling Catheter Indwelling Catheter Indwelling Catheter ABP, PAP, CO, CI - Last Documented Arterial Blood Pressure 73/48 Pulmonary Artery Pressure 38/5 Cardiac Output 5.5 Cardiac Index 2.5 - Exam GENERAL EXAM: Alert, pleasant 77-year-old gentleman, on 3 L nasal cannula, comfortable in no apparent distress. HEAD: Normocephalic. EYES: Normal reaction of pupils, equal size. NOSE: Clear with pink turbinates. THROAT: No erythema or exudates. NECK: No masses, no JVD. CHEST: Sternal dressing dry and intact. Heart hugger in place. LUNGS: Equal air entry with few scattered rhonchis. CVS: S1 and S2 normal with no audible murmur, regular rhythm. ABDOMEN: No hepatosplenomegaly, normal bowel sounds, no guarding or rigidity. SPINE: No scoliosis or deformity SKIN: No rashes CENTRAL NERVOUS SYSTEM: No focal deficits, tone is normal in all 4 extremities. EXTREMITIES: There is no peripheral edema. No clubbing, no cyanosis. Peripheral pulses are intact. - Labs CBC & Chem 7: 04/16/22 06:40 04/16/22 06:40 Labs: Abnormal Lab Results - Last 24 Hours (Table) 04/15/22 04/15/22 04/16/22 Range/Units 16:30 19:52 02:11 RBC (4.30-5.90) m/uL Hgb (13.0-17.5) gm/dL Hct (39.0-53.0) % RDW (11.5-15.5) % Chloride (98-107) mmol/L BUN (9-20) mg/dL Glucose (74-99) mg/dL POC Glucose (mg/dL) 212 H 213 H 138 H (70-110) mg/dL Calcium (8.4-10.2) mg/dL Total Protein (6.3-8.2) g/dL Albumin (3.5-5.0) g/dL 04/16/22 04/16/22 04/16/22 Range/Units 06:40 06:40 06:42 RBC 3.11 L (4.30-5.90) m/uL Hgb 8.0 L (13.0-17.5) gm/dL Hct 25.2 L (39.0-53.0) % RDW 18.1 H (11.5-15.5) % Chloride 108 H (98-107) mmol/L BUN 40 H (9-20) mg/dL Glucose 154 H (74-99) mg/dL POC Glucose (mg/dL) 157 H (70-110) mg/dL Calcium 7.7 L (8.4-10.2) mg/dL Total Protein 4.9 L (6.3-8.2) g/dL Albumin 2.9 L (3.5-5.0) g/dL 04/16/22 Range/Units 11:24 RBC (4.30-5.90) m/uL Hgb (13.0-17.5) gm/dL Hct (39.0-53.0) % RDW (11.5-15.5) % Chloride (98-107) mmol/L BUN (9-20) mg/dL Glucose (74-99) mg/dL POC Glucose (mg/dL) 172 H (70-110) mg/dL Calcium (8.4-10.2) mg/dL Total Protein (6.3-8.2) g/dL Albumin (3.5-5.0) g/dL Assessment and Plan Assessment: Coronary artery disease status post coronary artery bypass grafting 4 with a SANTA to the LAD, left radial artery graft to the first obtuse marginal, saphenous vein graft to the first diagonal, saphenous vein graft to the posterior lateral branch of the RCA. Left atrial appendage clip. Postoperative day #5. Hypoxemic respiratory failure secondary to above, expected outcome of surgery, improved and currently on 3 L nasal cannula Anemia, expected outcome of surgery, current hemoglobin 8.2 Hypertension, history of Hyperlipidemia History of melanoma of the left eyelid, resected Leonard's esophagus Parkinson tremors Former smoker, quit 30 years ago Chronic obstructive pulmonary disease Plan: The patient was seen and evaluated Currently up in a recliner Alert and oriented but weak Chest x-ray, labs and medications reviewed Titrate the FiO2 as tolerated Encourage increased use of the incentive spirometer Increase his activity as tolerated The plan is for possible inpatient rehabilitation post discharge We'll continue to follow I have personally seen and examined the patient, performed the documentation and the assessment and plan as written. Number of minutes spent on the visit: 10.
[2022-04-16 15:32] LABS: ABG Base Excess 0.5 mmol/L; ABG HCO3 24 mmol/L (21-25); ABG PCO2 29 mmHg (35-45); ABG PH 7.51 (7.35-7.45); ABG PO2 77 mmHg (83-108); ABG TCO2 24 mmol/L (19-24); Allen Test Performed? Yes
[2022-04-16 16:39] LABS: Glucose,Whole Blood 179 mg/dL (70-110)
[2022-04-16] MEDS: TAMSULOSIN 0.4 MG CAP.ER.24H PO SCH (18:13)
[2022-04-16 20:10] LABS: Glucose,Whole Blood 239 mg/dL (70-110)
[2022-04-16] MEDS: ATORVASTATIN 40 MG TAB PO SCH (21:39)
[2022-04-16] MEDS: SENNOSIDES-DOCUSATE SODIUM 1 EACH TAB PO SCH (21:39)
[2022-04-16] MEDS: ASPIRIN 81 MG PO SCH (21:39)
--- NOTE | 2022-04-16 22:01 | PN ---
PROGRESS NOTE HISTORY OF PRESENT ILLNESS: This is a 77-year-old gentleman with history of coronary artery disease, hypertension, dyslipidemia, peripheral arterial disease who is postop day #5, status post CABG with SANTA to LAD, radial artery graft to OM, venous graft to diagonal and PLV. The patient also had ligation of the left atrial appendage. He is hypotensive with poor urine output. PHYSICAL EXAMINATION: VITAL SIGNS: Heart rate is 84 beats per minute, blood pressure is 117/57, and respiratory rate is 18. CHEST: Reveals diminished air entry at the bases. HEART: Reveals first and second heart sounds. Systolic murmur at the left lower sternal border. ABDOMEN: Soft. EXTREMITIES: Reveal bilateral 1+ pitting edema. MEDICATIONS: He is currently on, 1. Amiodarone. 2. Lasix 20 mg IV q.12. 3. Lopressor 25 b.i.d. ASSESSMENT AND PLAN: Coronary artery disease, status post coronary artery bypass graft. The patient will continue current medications. MMODL / IJN: [id number] /
[2022-04-17] MEDS: HEPARIN SODIUM,PORCINE/PF 5,000 UNIT/0.5 ML SYRINGE SQ SCH ×3 (01:04→16:42)
[2022-04-17 03:03] LABS: Glucose,Whole Blood 243 mg/dL (70-110)
[2022-04-17 06:17] LABS: Anisocytosis Slight; HCT 25.5 % (39.0-53.0); HGB 7.9 gm/dL (13.0-17.5); Hypochromasia Marked; MCH 25.1 pg (25.0-35.0); Mean Platelet Volume 8.3; Microcytosis Slight; Platelet Count 163 k/uL (150-450); RBC 3.15 m/uL (4.30-5.90); RDW 19.3 % (11.5-15.5); WBC 13.3 k/uL (3.8-10.6)
[2022-04-17 06:38] LABS: Albumin 2.8 g/dL (3.5-5.0); Calcium 7.5 mg/dL (8.4-10.2); Magnesium 2.2 mg/dL (1.6-2.3); Potassium 4.1 mmol/L (3.5-5.1); Total Bilirubin 1.2 mg/dL (0.2-1.3); Total Protein 4.7 g/dL (6.3-8.2)
[2022-04-17] MEDS: INSULIN ASPART (NovoLOG) 100 UNIT/ML VIAL SQ SCH ×7 (06:48→20:45)
[2022-04-17] MEDS: FERROUS SULFATE 325 MG TAB PO SCH ×2 (06:48→16:42)
[2022-04-17] MEDS: INSULIN DETEMIR (LEVEMIR) 100 UNIT/ML SYR SQ SCH ×2 (06:48→20:09)
[2022-04-17] MEDS: PANTOPRAZOLE 40 MG TABLET PO SCH ×2 (06:48→16:44)
[2022-04-17 06:54] LABS: Glucose,Whole Blood 231 mg/dL (70-110)
--- NOTE | 2022-04-17 07:24 | P.PN ---
Subjective Progress Note Date: 04/17/22 Principal diagnosis: Coronary artery disease. Previous medical history of hypertension, hyperlipidemia, insulin-dependent diabetes, previous tobacco dependence, mild COPD, asthma, liver cirrhosis, Leonard's esophagus, PAD, melanoma skin cancer, chronic iron deficiency anemia, essential tremors, depression, and family history of coronary artery disease POD #6 off-pump coronary artery bypass grafting 4 with left internal mammary artery to the left anterior descending artery, left radial artery graft to the first obtuse marginal artery, reverse saphenous vein graft to the first diagonal artery, reverse saphenous vein graft to the posterior lateral branch of the right coronary artery, ligation of the left atrial appendage with a 35 mm AtriCure clamp, endovascular vein harvest of bilateral greater saphenous vein and endovascular left radial artery harvest. Intraoperative transesophageal echocardiogram performed by anesthesia. Postoperative acute blood loss anemia, expected given hemodilution and preoperative anemia The patient was seen and examined this morning sitting up in a recliner on the intensive care unit in no acute distress. Remains in sinus rhythm, hemodynamically stable. Denies chest pain, shortness of breath. Oriented to person, place, time and situation. Patient's oxygen demands steadily increased yesterday he was placed on BiPAP yesterday afternoon, currently on BiPAP at 50% FiO2 with oxygen saturation in the low to mid 90s. Patient continues to have significant weakness/debility, was seen by Dr. Duron, will need rehab at discharge. Labs and chest x-ray reviewed. No other new concerns. Objective - Vital Signs Vital signs: Vital Signs Temp 99.5 F 04/17/22 03:00 Pulse 85 04/17/22 07:00 Resp 29 H 04/17/22 07:00 BP 111/51 04/17/22 07:00 Pulse Ox 88 L 04/17/22 07:00 FiO2 50 04/17/22 07:00 Intake & Output 04/16/22 04/17/22 04/17/22 18:59 06:59 18:59 Intake Total 1600 480 Output Total 860 680 40 Balance 740 -200 -40 Weight 115 kg Intake: Oral 1600 480 Output: Urine 860 680 40 Other: Voiding Method Indwelling Catheter Indwelling Catheter ABP, PAP, CO, CI - Last Documented Arterial Blood Pressure 73/48 Pulmonary Artery Pressure 38/5 Cardiac Output 5.5 Cardiac Index 2.5 - Exam CONSTITUTIONAL: Appears comfortable, cooperative, no acute distress RESPIRATORY: Lungs sounds diminished bilaterally. Respirations even, nonlabored. Currently on BiPAP, 50% FiO2, IPAP 14, EPAP 5, with oxygen saturation 94%. Strong cough. CARDIOVASCULAR: S1, S2 present. Regular rate and rhythm, sinus rhythm on telemetry. Sternum stable. Palpable peripheral pulses bilaterally. Generalized still edema present, decreased from yesterday. No calf pain or tenderness noted. Heart hugger in place with patient occasionally demonstrating appropriate use when instructed. Antiembolism stockings, SCDs present. GASTROINTESTINAL: Abdomen soft, nontender, nondistended. Active bowel sounds present 4 quadrants. Tolerating minimal diet. Positive bowel movement 04/15 GENITOURINARY: Woods present draining clear, yellow urine. Output overnight 35-75 mL per hour, 1540 mL in the last 24 hours INTEGUMENTARY: Skin is warm and dry. Anterior chest incision well approximated and covered with dry intact dressing. Bilateral lower extremity EVH sites well approximated without redness NEUROLOGIC: Cranial nerves II through XII intact MUSKULOSKELETAL: Able to move all extremities, strength equal bilaterally PSYCHIATRIC: Alert and oriented to person place and time, appropriate affect - Allied health notes Allied health notes reviewed: nursing - Labs CBC & Chem 7: 04/17/22 05:11 04/17/22 05:11 Labs: Abnormal Lab Results - Last 24 Hours (Table) 04/16/22 04/16/22 04/16/22 Range/Units 06:40 11:24 15:30 WBC (3.8-10.6) k/uL RBC (4.30-5.90) m/uL Hgb (13.0-17.5) gm/dL Hct (39.0-53.0) % RDW (11.5-15.5) % ABG pH 7.51 H (7.35-7.45) ABG pCO2 29 L (35-45) mmHg ABG pO2 77 L (83-108) mmHg Chloride 108 H (98-107) mmol/L BUN 40 H (9-20) mg/dL Creatinine (0.66-1.25) mg/dL Glucose 154 H (74-99) mg/dL POC Glucose (mg/dL) 172 H (70-110) mg/dL Calcium 7.7 L (8.4-10.2) mg/dL AST (17-59) U/L Total Protein 4.9 L (6.3-8.2) g/dL Albumin 2.9 L (3.5-5.0) g/dL 04/16/22 04/16/22 04/17/22 Range/Units 16:37 20:09 03:01 WBC (3.8-10.6) k/uL RBC (4.30-5.90) m/uL Hgb (13.0-17.5) gm/dL Hct (39.0-53.0) % RDW (11.5-15.5) % ABG pH (7.35-7.45) ABG pCO2 (35-45) mmHg ABG pO2 (83-108) mmHg Chloride (98-107) mmol/L BUN (9-20) mg/dL Creatinine (0.66-1.25) mg/dL Glucose (74-99) mg/dL POC Glucose (mg/dL) 179 H 239 H 243 H (70-110) mg/dL Calcium (8.4-10.2) mg/dL AST (17-59) U/L Total Protein (6.3-8.2) g/dL Albumin (3.5-5.0) g/dL 04/17/22 04/17/22 04/17/22 Range/Units 05:11 05:11 06:52 WBC 13.3 H (3.8-10.6) k/uL RBC 3.15 L (4.30-5.90) m/uL Hgb 7.9 L (13.0-17.5) gm/dL Hct 25.5 L (39.0-53.0) % RDW 19.3 H (11.5-15.5) % ABG pH (7.35-7.45) ABG pCO2 (35-45) mmHg ABG pO2 (83-108) mmHg Chloride (98-107) mmol/L BUN 38 H (9-20) mg/dL Creatinine 1.27 H (0.66-1.25) mg/dL Glucose 203 H (74-99) mg/dL POC Glucose (mg/dL) 231 H (70-110) mg/dL Calcium 7.5 L (8.4-10.2) mg/dL AST 77 H (17-59) U/L Total Protein 4.7 L (6.3-8.2) g/dL Albumin 2.8 L (3.5-5.0) g/dL - Imaging and Cardiology Chest x-ray: image reviewed Assessment and Plan Assessment: 1. Coronary artery disease, status post four-vessel off-pump CABG 2. History of hypertension, currently hypotensive on dopamine 3. Hyperlipidemia, treated, cholesterol 157, LDL 85, triglycerides 169 4. Insulin-dependent diabetes, preoperative hemoglobin A1c 9.4% 5. Previous tobacco dependence 6. Mild COPD, preoperative FEV1 62% of predicted 7. Asthma 8. Liver cirrhosis 9. Leonard's esophagus 10. PAD 11. Melanoma skin cancer 12. Chronic iron deficiency anemia 13. Essential tremors 14. Depression 15. Family history of coronary artery disease 16. Postoperative acute blood loss anemia, expected given hemodilution and preoperative anemia 17. Urinary retention requiring reinitiation of Woods catheter, Flomax 18. Medical debility 19. Hypoxemic respiratory failure, currently on BiPAP Plan: 1. Continue aspirin, statin, Plavix, beta yolette therapy. Will increase beta yolette therapy as tolerated 2. Continue lasix 20 mg IVP Q 12 hours 3. Continue amiodarone for A. fib prophylaxis, ChadsVasc 5, will taper weekly 4. Wean O2 as tolerated. Encourage incentive spirometry is 10 times every hour while awake. Bronchodilators, BiPAP management per pulmonology 5. Increase activity, ambulate as tolerated. PT/OT/cardiac rehab consulted 6. Will monitor daily labs and x-rays. Electrolyte replacement per protocol 7. GI/DVT prophylaxis 8. Insulin management per primary care service, patient needs tighter blood sugar control. Patient is diabetic, normally on insulin pump 9. Pain control with current medication regimen. Avoid narcotics 10. Strict accurate intake and output, daily weights 11. Continue Flomax, continue Woods catheter due to retention 12. More recommendations to follow
[2022-04-17] MEDS: IPRATROPIUM-ALBUTEROL 3 ML NEB INHALATION SCH ×4 (07:41→20:22)
[2022-04-17] MEDS: SYMBICORT 160-4.5 MCG INHALER INHALATION SCH ×2 (07:41→20:22)
--- NOTE | 2022-04-17 08:01 | XR ---
EXAMINATION TYPE: XR chest 1V portable DATE OF EXAM: 04/17/2022 Comparison: 04/16/2022 Clinical History: 77-year-old male Post cardiac surgery Findings: Median sternotomy wires and plate and screw fixation hardware. Median sternotomy wires. Heart upper l imits of normal in size. Increasing bibasilar opacities. Blunting of the left costophrenic angle. Impression: Increasing bibasilar opacities, left greater than right, along with new small left pleural effusion.
[2022-04-17] MEDS: FUROSEMIDE 10 MG/ML 2 ML VIAL IV SCH ×2 (08:08→20:46)
[2022-04-17] MEDS: DULoxetine HCL 60 MG CAPSULE.DR PO SCH (08:08)
[2022-04-17] MEDS: guaiFENesin 600 MG TABLET.ER PO SCH ×2 (08:08→20:46)
[2022-04-17] MEDS: PRIMIDONE 250 MG TAB PO SCH ×2 (08:09→20:09)
[2022-04-17] MEDS: CLOPIDOGREL 75 MG TAB PO SCH (08:09)
[2022-04-17] MEDS: ASCORBIC ACID 500 MG TAB PO SCH (08:09)
[2022-04-17] MEDS: CHOLECALCIFEROL 25 MCG (1000 IU) TABLET PO SCH (08:09)
[2022-04-17] MEDS: AMIODARONE 200 MG TAB PO SCH ×2 (08:09→20:01)
[2022-04-17] MEDS: METOPROLOL TARTRATE 25 MG TAB PO SCH ×2 (08:09→22:48)
[2022-04-17 11:27] LABS: Glucose,Whole Blood 172 mg/dL (70-110)
[2022-04-17] MEDS ORDERED: INSULIN DETEMIR (LEVEMIR) 100 UNIT/ML SYR SQ ONE (11:30)
--- NOTE | 2022-04-17 12:27 | P.PN ---
Subjective Progress Note Date: 04/17/22 Principal diagnosis: Status post bypass grafting. The patient is seen today 04/15/2022 in follow-up in the intensive care unit. He is awake and alert in no acute distress. Sitting up in a chair at the bedside. Postoperative day #4. He is maintaining good O2 saturations in the 90s on 2 L/m per nasal cannula. No IV fluids. Chest x-ray reveals no evidence of focal consolidation or pneumothorax. Left-sided chest tube has been removed. White count 14.9. Hemoglobin 8.2 platelets 206. Sodium 138. Potassium 4.0. Bicarb 21. BUN 43. Creatinine 1.31. Glucose 148. He is continued on bronchodilators. Continues to work with the incentive spirometer. Remains on oral amiodarone. Heparin for DVT prophylaxis. He is on Lasix now 20 mg IV every 12 hours. Currently in a -2.9 L balance. The patient is seen today 04/16/2022 in follow-up in the intensive care unit. He is awake and alert. Sitting up in a recliner at the bedside. Postoperative day #5. He has need increased encouragement regarding use of the incentive spirometer and cough and deep breathing exercises. He is currently on 3 L nasal cannula. No IV fluids running. Chest x-ray continues to show some atelectasis left lung base. He is continued on Symbicort, DuoNeb inhalations IV diuretics. Heparin for DVT prophylaxis. He remains in a -2.9 L balance. White count 10.3. Hemoglobin 8.0. Sodium 139. Potassium 3.9. BUN 40. Creatinine 1.20. Glucose 154. Progress note dated 04/17/2022. This is a 77-year-old male who was seen in room 260. He's postop day #6, status post CABG. The patient's currently on 8 L high flow oxygen. He did use BiPAP at nighttime, with settings of 14/5 and 50%. He's not receiving any IV fluids. He has an incentive spirometer, and a flutter valve at the bedside, which she is using, intermittently. White count 13.3, hemoglobin 7.9, hematocrit 25.5, and platelet count 263,000. Sodium 137, potassium 4.1, chlorides 105, CO2 26, BUN 38, and creatinine 1.27. Chest x-ray shows bibasilar opacities, left greater than right, with small bilateral effusions. Objective - Vital Signs Vital signs: Vital Signs Temp 98.9 F 04/17/22 08:00 Pulse 85 04/17/22 12:14 Resp 25 H 04/17/22 12:00 BP 109/50 04/17/22 12:00 Pulse Ox 86 L 04/17/22 12:00 FiO2 50 04/17/22 12:03 Intake & Output 04/16/22 04/17/22 04/17/22 18:59 06:59 18:59 Intake Total 1600 480 120 Output Total 860 680 485 Balance 740 -200 -365 Weight 115 kg Intake: Oral 1600 480 120 Output: Urine 860 680 485 Other: Voiding Method Indwelling Catheter Indwelling Catheter Indwelling Catheter ABP, PAP, CO, CI - Last Documented Arterial Blood Pressure 73/48 Pulmonary Artery Pressure 38/5 Cardiac Output 5.5 Cardiac Index 2.5 - Exam No acute distress, oriented 3. Pale. Currently on high flow oxygen. HEENT examination is grossly unremarkable. Neck supple. Full range of motion. No adenopathy thyromegaly or neck vein distention. Cardiovascular examination reveals regular rhythm rate. S1-S2 normal. No S3 or S4. No discernible murmur noted. Heart sounds are distant. Heart rate 85 bpm. Lungs reveal scattered bibasilar crackles, and diffuse coarse rhonchi. His cough is wet and congested. No wheezes. Abdomen soft bowel sounds are heard. No masses or tenderness. Extremities are intact. No cyanosis or clubbing. Trace edema present. Skin is without rash or lesion. Neurologic examination is brief but nonfocal. - Labs CBC & Chem 7: 04/17/22 05:11 04/17/22 05:11 Labs: Abnormal Lab Results - Last 24 Hours (Table) 04/16/22 04/16/22 04/16/22 Range/Units 15:30 16:37 20:09 WBC (3.8-10.6) k/uL RBC (4.30-5.90) m/uL Hgb (13.0-17.5) gm/dL Hct (39.0-53.0) % RDW (11.5-15.5) % ABG pH 7.51 H (7.35-7.45) ABG pCO2 29 L (35-45) mmHg ABG pO2 77 L (83-108) mmHg BUN (9-20) mg/dL Creatinine (0.66-1.25) mg/dL Glucose (74-99) mg/dL POC Glucose (mg/dL) 179 H 239 H (70-110) mg/dL Calcium (8.4-10.2) mg/dL AST (17-59) U/L Total Protein (6.3-8.2) g/dL Albumin (3.5-5.0) g/dL 04/17/22 04/17/22 04/17/22 Range/Units 03:01 05:11 05:11 WBC 13.3 H (3.8-10.6) k/uL RBC 3.15 L (4.30-5.90) m/uL Hgb 7.9 L (13.0-17.5) gm/dL Hct 25.5 L (39.0-53.0) % RDW 19.3 H (11.5-15.5) % ABG pH (7.35-7.45) ABG pCO2 (35-45) mmHg ABG pO2 (83-108) mmHg BUN 38 H (9-20) mg/dL Creatinine 1.27 H (0.66-1.25) mg/dL Glucose 203 H (74-99) mg/dL POC Glucose (mg/dL) 243 H (70-110) mg/dL Calcium 7.5 L (8.4-10.2) mg/dL AST 77 H (17-59) U/L Total Protein 4.7 L (6.3-8.2) g/dL Albumin 2.8 L (3.5-5.0) g/dL 04/17/22 04/17/22 Range/Units 06:52 11:26 WBC (3.8-10.6) k/uL RBC (4.30-5.90) m/uL Hgb (13.0-17.5) gm/dL Hct (39.0-53.0) % RDW (11.5-15.5) % ABG pH (7.35-7.45) ABG pCO2 (35-45) mmHg ABG pO2 (83-108) mmHg BUN (9-20) mg/dL Creatinine (0.66-1.25) mg/dL Glucose (74-99) mg/dL POC Glucose (mg/dL) 231 H 172 H (70-110) mg/dL Calcium (8.4-10.2) mg/dL AST (17-59) U/L Total Protein (6.3-8.2) g/dL Albumin (3.5-5.0) g/dL Assessment and Plan Assessment: Coronary artery disease status post coronary artery bypass grafting 4 with a SANTA to the LAD, left radial artery graft to the first obtuse marginal, saphenous vein graft to the first diagonal, saphenous vein graft to the posterior lateral branch of the RCA. Left atrial appendage clip. Postoperative day #6. Hypoxemic respiratory failure secondary to above. Postoperative anemia. Hypertension, history of. Hyperlipidemia. History of melanoma of the left eyelid, resected. Leonard's esophagus. Parkinson tremors. Former smoker, quit 30 years ago. Chronic obstructive pulmonary disease. Plan: Plan dated 04/17/2022. The patient is seen and examined, in room 260. I've asked him to use his incentive spirometer, every hour, as well as a flutter valve. We demonstrate to him the use of the flutter valve today. Labs, x-rays, and medications are all reviewed. Prognosis is guarded. The patient remains on 8 L high flow oxygen. He did use BiPAP last night. He is not receiving any IV fluids. He is postop day #6. Time with Patient: Less than 30
--- NOTE | 2022-04-17 12:54 | P.PN ---
Subjective Progress Note Date: 04/17/22 Patient is progressing very poorly with PT. glucose is out of control, increasing insulin Gen: awake, alert HEENT: normocephalic, atraumatic, good hearing acuity, moist mucous membranes Resp: good air exchange, breathing comfortably with no accessory muscle use CVS: good distal perfusion x 4, GI: soft, NTTP, ND : no SPT, no CVAT, rubio catheter is present MSK: Bilateral 1+ pitting edema, no clubbing Neuro: non-focal, moving all extremities Psych: cooperative, euthymic mood Assessment/plan: Severe multivessel coronary artery disease Status post CABG 4 -Post CABG 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 -Aspirin and Plavix, and statin -Amiodarone drip and transitioned to oral -Pain control and antiemetics -Subcu heparin for DVT prophylaxis -PT consult, requires significant encouragement to increase mobility Insulin-dependent diabetes, on insulin pump - SSI, fixed dose insulin, levemir, sugars are stable - follow BS - hold insulin pump - Basal [id number] 2.6 [id number] 4.6 - Carb ratio 2.5 - can have insulin pump at inpatient rehab Postop anemia, anticipated outcome of surgery -Follow CBC -No indication for transfusion at this time HTN - BP managed by CT surgery Leukocytosis Likely reactive, improving Anemia, thro Acute kidney injury, resolved thrombocytopenia, resolved Chronic: History of cirrhosis History of Leonard's esophagus History of iron deficiency anemia Asthma Thank you for allowing us to participate in the care of this pleasant patient. Do not hesitate to contact us with questions. Someone can be reached from the [facility] hospitalist group all hours of the day at [phone] or via [employer]. Objective - Vital Signs Vital signs: Vital Signs Temp 98.9 F 04/17/22 08:00 Pulse 85 04/17/22 12:14 Resp 25 H 04/17/22 12:00 BP 109/50 04/17/22 12:00 Pulse Ox 86 L 04/17/22 12:00 FiO2 50 04/17/22 12:03 Intake & Output 04/16/22 04/17/22 04/17/22 18:59 06:59 18:59 Intake Total 1600 480 120 Output Total 860 680 485 Balance 740 -200 -365 Weight 115 kg Intake: Oral 1600 480 120 Output: Urine 860 680 485 Other: Voiding Method Indwelling Catheter Indwelling Catheter Indwelling Catheter ABP, PAP, CO, CI - Last Documented Arterial Blood Pressure 73/48 Pulmonary Artery Pressure 38/5 Cardiac Output 5.5 Cardiac Index 2.5 - Labs CBC & Chem 7: 04/17/22 05:11 04/17/22 05:11 Labs: Abnormal Lab Results - Last 24 Hours (Table) 04/16/22 04/16/22 04/16/22 Range/Units 15:30 16:37 20:09 WBC (3.8-10.6) k/uL RBC (4.30-5.90) m/uL Hgb (13.0-17.5) gm/dL Hct (39.0-53.0) % RDW (11.5-15.5) % ABG pH 7.51 H (7.35-7.45) ABG pCO2 29 L (35-45) mmHg ABG pO2 77 L (83-108) mmHg BUN (9-20) mg/dL Creatinine (0.66-1.25) mg/dL Glucose (74-99) mg/dL POC Glucose (mg/dL) 179 H 239 H (70-110) mg/dL Calcium (8.4-10.2) mg/dL AST (17-59) U/L Total Protein (6.3-8.2) g/dL Albumin (3.5-5.0) g/dL 04/17/22 04/17/22 04/17/22 Range/Units 03:01 05:11 05:11 WBC 13.3 H (3.8-10.6) k/uL RBC 3.15 L (4.30-5.90) m/uL Hgb 7.9 L (13.0-17.5) gm/dL Hct 25.5 L (39.0-53.0) % RDW 19.3 H (11.5-15.5) % ABG pH (7.35-7.45) ABG pCO2 (35-45) mmHg ABG pO2 (83-108) mmHg BUN 38 H (9-20) mg/dL Creatinine 1.27 H (0.66-1.25) mg/dL Glucose 203 H (74-99) mg/dL POC Glucose (mg/dL) 243 H (70-110) mg/dL Calcium 7.5 L (8.4-10.2) mg/dL AST 77 H (17-59) U/L Total Protein 4.7 L (6.3-8.2) g/dL Albumin 2.8 L (3.5-5.0) g/dL 04/17/22 04/17/22 Range/Units 06:52 11:26 WBC (3.8-10.6) k/uL RBC (4.30-5.90) m/uL Hgb (13.0-17.5) gm/dL Hct (39.0-53.0) % RDW (11.5-15.5) % ABG pH (7.35-7.45) ABG pCO2 (35-45) mmHg ABG pO2 (83-108) mmHg BUN (9-20) mg/dL Creatinine (0.66-1.25) mg/dL Glucose (74-99) mg/dL POC Glucose (mg/dL) 231 H 172 H (70-110) mg/dL Calcium (8.4-10.2) mg/dL AST (17-59) U/L Total Protein (6.3-8.2) g/dL Albumin (3.5-5.0) g/dL
[2022-04-17 16:35] LABS: Glucose,Whole Blood 186 mg/dL (70-110)
[2022-04-17] MEDS: TAMSULOSIN 0.4 MG CAP.ER.24H PO SCH (19:57)
[2022-04-17] MEDS: ATORVASTATIN 40 MG TAB PO SCH (20:09)
[2022-04-17] MEDS: ASPIRIN 81 MG PO SCH (20:09)
[2022-04-17 20:14] LABS: Glucose,Whole Blood 172 mg/dL (70-110)
[2022-04-17] MEDS: SENNOSIDES-DOCUSATE SODIUM 1 EACH TAB PO SCH (20:47)
[2022-04-18] MEDS: HEPARIN SODIUM,PORCINE/PF 5,000 UNIT/0.5 ML SYRINGE SQ SCH ×3 (00:10→16:42)
--- NOTE | 2022-04-18 00:32 | PN ---
PROGRESS NOTE HISTORY OF PRESENT ILLNESS: This is a 77-year-old gentleman with coronary artery disease, status post CABG, postop day #6, peripheral arterial disease, hypertension, and dyslipidemia. He has respiratory failure and is still requiring quite a bit of support. Chest x-ray shows bilateral atelectatic changes. Urine output is somewhat poor. He is on 20 mg of IV Lasix q.12. Labs today show a hemoglobin of 7.9, potassium is 4.1, creatinine is 1.2. MEDICATIONS: The patient is on, 1. Cordarone. 2. Lipitor. 3. Aspirin. 4. Plavix. 5. Lasix. 6. Lopressor. PHYSICAL EXAMINATION: GENERAL: Comfortable at rest. VITAL SIGNS: Heart rate is 80 beats per minute. Blood pressure is 90/50, respiratory rate is 18. CHEST: Reveals diminished air entry at the bases. HEART: Reveals first and second heart sounds and a systolic murmur at the left lower sternal border. EXTREMITIES: Reveals 1+ edema. ASSESSMENT: Coronary artery disease, status post coronary artery bypass graft, hypoxic respiratory failure. PLAN: Increase the dose of Lasix to 20 q.8 as his urine output seem to fall off in the afternoon. MMODL / IJN: [id number] /
[2022-04-18 02:12] LABS: Glucose,Whole Blood 209 mg/dL (70-110)
[2022-04-18 05:19] LABS: Anisocytosis Slight; HCT 24.1 % (39.0-53.0); HGB 7.4 gm/dL (13.0-17.5); Hypochromasia Marked; MCH 24.8 pg (25.0-35.0); MCHC 30.6 g/dL (31.0-37.0); MCV 81.2 fL (80.0-100.0); Mean Platelet Volume 8.5; Microcytosis Slight; Platelet Count 170 k/uL (150-450); Poikilocytosis Slight; RBC 2.97 m/uL (4.30-5.90); RDW 19.4 % (11.5-15.5); WBC 11.9 k/uL (3.8-10.6)
[2022-04-18 05:55] LABS: Albumin 2.5 g/dL (3.5-5.0); Calcium 7.5 mg/dL (8.4-10.2); Magnesium 2.4 mg/dL (1.6-2.3); Potassium 3.9 mmol/L (3.5-5.1); Total Bilirubin 1.1 mg/dL (0.2-1.3); Total Protein 4.6 g/dL (6.3-8.2)
[2022-04-18 06:41] LABS: Glucose,Whole Blood 194 mg/dL (70-110)
[2022-04-18] MEDS: INSULIN DETEMIR (LEVEMIR) 100 UNIT/ML SYR SQ SCH ×2 (06:57→21:13)
[2022-04-18] MEDS: FERROUS SULFATE 325 MG TAB PO SCH ×2 (06:58→16:42)
[2022-04-18] MEDS: INSULIN ASPART (NovoLOG) 100 UNIT/ML VIAL SQ SCH ×7 (06:58→21:15)
[2022-04-18] MEDS: PANTOPRAZOLE 40 MG TABLET PO SCH ×2 (06:58→16:42)
--- NOTE | 2022-04-18 08:26 | P.PN ---
Subjective Progress Note Date: 04/18/22 Principal diagnosis: Coronary artery disease. Previous medical history of hypertension, hyperlipidemia, insulin-dependent diabetes, previous tobacco dependence, mild COPD, asthma, liver cirrhosis, Leonard's esophagus, PAD, melanoma skin cancer, chronic iron deficiency anemia, essential tremors, depression, and family history of coronary artery disease POD #7 off-pump coronary artery bypass grafting 4 with left internal mammary artery to the left anterior descending artery, left radial artery graft to the first obtuse marginal artery, reverse saphenous vein graft to the first diagonal artery, reverse saphenous vein graft to the posterior lateral branch of the right coronary artery, ligation of the left atrial appendage with a 35 mm AtriCure clamp, endovascular vein harvest of bilateral greater saphenous vein and endovascular left radial artery harvest. Intraoperative transesophageal echocardiogram performed by anesthesia. Postoperative acute blood loss anemia, expected given hemodilution and preoperative anemia The patient was seen and examined this morning sitting up in a recliner on the intensive care unit in no acute distress. Remains in sinus rhythm, hemodynamically stable. Denies chest pain, shortness of breath. Currently on 15LPM hi flow NC with oxygen saturation 96%, able to achieve 1250 mL on incentive spirometry, was on bipap overnight. Oriented to person, place, time and situation. Patient continues to have significant weakness/debility, will need ONIEL at discharge, insurance auth to be started. Labs and chest x-ray reviewed. No other new concerns. Objective - Vital Signs Vital signs: Vital Signs Temp 99.8 F H 04/18/22 00:00 Pulse 86 04/18/22 07:00 Resp 19 04/18/22 07:00 BP 91/49 04/18/22 07:00 Pulse Ox 90 L 04/18/22 07:00 FiO2 50 04/18/22 04:15 Intake & Output 04/17/22 04/18/22 04/18/22 18:59 06:59 18:59 Intake Total 545 840 180 Output Total 705 440 30 Balance -160 400 150 Weight 110.3 kg Intake: Oral 545 840 180 Output: Urine 705 440 30 Other: Voiding Method Indwelling Catheter Indwelling Catheter ABP, PAP, CO, CI - Last Documented Arterial Blood Pressure 73/48 Pulmonary Artery Pressure 38/5 Cardiac Output 5.5 Cardiac Index 2.5 - Exam CONSTITUTIONAL: Appears comfortable, cooperative, no acute distress RESPIRATORY: Lungs sounds diminished bilaterally. Respirations even, nonlabored. Currently on 15 L high flow nasal cannula with oxygen saturation 96%. Able to achieve 1250 mL on his incentive spirometry. Strong harsh cough. CARDIOVASCULAR: S1, S2 present. Regular rate and rhythm, sinus rhythm on telemetry. Sternum stable. Palpable peripheral pulses bilaterally. Generalized edema still present, decreased from yesterday. No calf pain or tenderness noted. Heart hugger in place with patient occasionally demonstrating appropriate use when instructed. Antiembolism stockings, SCDs present. GASTROINTESTINAL: Abdomen soft, nontender, nondistended. Active bowel sounds present 4 quadrants. Tolerating minimal diet. Positive bowel movement 04/15 GENITOURINARY: Woods present draining clear, yellow urine. Output overnight 30-40 mL per hour, 1110 mL in the last 24 hours INTEGUMENTARY: Skin is warm and dry. Anterior chest incision well approximated and covered with dry intact dressing. Bilateral lower extremity EVH sites well approximated without redness NEUROLOGIC: Cranial nerves II through XII intact MUSKULOSKELETAL: Able to move all extremities, strength equal bilaterally, generalized weakness/debility present PSYCHIATRIC: Alert and oriented to person place and time, appropriate affect - Allied health notes Allied health notes reviewed: nursing - Labs CBC & Chem 7: 04/18/22 04:58 04/18/22 04:58 Labs: Abnormal Lab Results - Last 24 Hours (Table) 04/17/22 04/17/22 04/17/22 Range/Units 11:26 16:33 20:12 WBC (3.8-10.6) k/uL RBC (4.30-5.90) m/uL Hgb (13.0-17.5) gm/dL Hct (39.0-53.0) % MCH (25.0-35.0) pg MCHC (31.0-37.0) g/dL RDW (11.5-15.5) % Sodium (137-145) mmol/L BUN (9-20) mg/dL Creatinine (0.66-1.25) mg/dL Glucose (74-99) mg/dL POC Glucose (mg/dL) 172 H 186 H 172 H (70-110) mg/dL Calcium (8.4-10.2) mg/dL Magnesium (1.6-2.3) mg/dL AST (17-59) U/L Total Protein (6.3-8.2) g/dL Albumin (3.5-5.0) g/dL 04/18/22 04/18/22 04/18/22 Range/Units 02:10 04:58 04:58 WBC 11.9 H (3.8-10.6) k/uL RBC 2.97 L (4.30-5.90) m/uL Hgb 7.4 L (13.0-17.5) gm/dL Hct 24.1 L (39.0-53.0) % MCH 24.8 L (25.0-35.0) pg MCHC 30.6 L (31.0-37.0) g/dL RDW 19.4 H (11.5-15.5) % Sodium 135 L (137-145) mmol/L BUN 43 H (9-20) mg/dL Creatinine 1.47 H (0.66-1.25) mg/dL Glucose 186 H (74-99) mg/dL POC Glucose (mg/dL) 209 H (70-110) mg/dL Calcium 7.5 L (8.4-10.2) mg/dL Magnesium 2.4 H (1.6-2.3) mg/dL AST 84 H (17-59) U/L Total Protein 4.6 L (6.3-8.2) g/dL Albumin 2.5 L (3.5-5.0) g/dL 04/18/22 Range/Units 06:39 WBC (3.8-10.6) k/uL RBC (4.30-5.90) m/uL Hgb (13.0-17.5) gm/dL Hct (39.0-53.0) % MCH (25.0-35.0) pg MCHC (31.0-37.0) g/dL RDW (11.5-15.5) % Sodium (137-145) mmol/L BUN (9-20) mg/dL Creatinine (0.66-1.25) mg/dL Glucose (74-99) mg/dL POC Glucose (mg/dL) 194 H (70-110) mg/dL Calcium (8.4-10.2) mg/dL Magnesium (1.6-2.3) mg/dL AST (17-59) U/L Total Protein (6.3-8.2) g/dL Albumin (3.5-5.0) g/dL - Imaging and Cardiology Chest x-ray: image reviewed Assessment and Plan Assessment: 1. Coronary artery disease, status post four-vessel off-pump CABG 2. History of hypertension, currently hypotensive on dopamine 3. Hyperlipidemia, treated, cholesterol 157, LDL 85, triglycerides 169 4. Insulin-dependent diabetes, preoperative hemoglobin A1c 9.4% 5. Previous tobacco dependence 6. Mild COPD, preoperative FEV1 62% of predicted 7. Asthma 8. Liver cirrhosis 9. Leonard's esophagus 10. PAD 11. Melanoma skin cancer 12. Chronic iron deficiency anemia 13. Essential tremors 14. Depression 15. Family history of coronary artery disease 16. Postoperative acute blood loss anemia, expected given hemodilution and preoperative anemia 17. Urinary retention requiring reinitiation of Woods catheter, Flomax 18. Medical debility, generalized weakness 19. Hypoxemic respiratory failure, acquiring BiPAP at night Plan: 1. Continue aspirin, statin, Plavix, beta yolette therapy 2. Continue lasix, decreased to 20 mg by mouth daily 3. Continue amiodarone for A. fib prophylaxis, ChadsVasc 5, decreased to 200 mg twice daily yesterday by Dr. Ghosh 4. Wean O2 as tolerated. Encourage incentive spirometry is 10 times every hour while awake. Bronchodilators, BiPAP management per pulmonology 5. Increase activity, ambulate as tolerated. PT/OT/cardiac rehab following 6. Will monitor daily labs and x-rays. Electrolyte replacement per protocol 7. GI/DVT prophylaxis 8. Insulin management per primary care service, patient needs tighter blood sugar control. Patient is diabetic, normally on insulin pump 9. Pain control with current medication regimen. Avoid narcotics 10. Strict accurate intake and output, daily weights 11. Continue Flomax, continue Woods catheter due to retention 12. Discharge planning in progress. Hopefully discharge to subacute rehab and approximately 48 hours pending insurance authorization 13. More recommendations to follow
--- NOTE | 2022-04-18 08:46 | XR ---
EXAMINATION TYPE: XR chest 1V portable DATE OF EXAM: 04/18/2022 6:10 AM COMPARISON: Chest radiographs from 04/17/2022 TECHNIQUE: XR chest 1V portable Portable AP radiograph of the chest. CLINICAL INDICATION:Male, 77 years old with history of post cardiac surgery; FINDINGS: Lungs/Pleura: There is no evidence of focal consolidation, or pneumothorax. Layering left pleural ef fusion suggested. Pulmonary vascularity: Unremarkable. Heart/mediastinum: Cardiomediastinal silhouette is unremarkable. Left atrial appendage occlusion loyda ce is present. Musculoskeletal: No acute osseous pathology. Midline sternotomy wires are noted. IMPRESSION: No change from one day prior with bibasilar atelectasis and possibly new small left pleural effusion.
[2022-04-18] MEDS ORDERED: FUROSEMIDE 10 MG/ML 2 ML VIAL IV SCH (09:00)
--- NOTE | 2022-04-18 09:10 | P.PN ---
Subjective Progress Note Date: 04/18/22 No new complaints. Pending SNF placement. Gen: awake, alert HEENT: normocephalic, atraumatic, good hearing acuity, moist mucous membranes Resp: good air exchange, breathing comfortably with no accessory muscle use CVS: good distal perfusion x 4, GI: soft, NTTP, ND : no SPT, no CVAT, rubio catheter is present MSK: Bilateral 1+ pitting edema, no clubbing Neuro: non-focal, moving all extremities Psych: cooperative, euthymic mood Assessment/plan: Severe multivessel coronary artery disease Status post CABG 4 -Post CABG 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 -Aspirin and Plavix, and statin -Amiodarone drip and transitioned to oral -Pain control and antiemetics -Subcu heparin for DVT prophylaxis -PT consult, requires significant encouragement to increase mobility Insulin-dependent diabetes, on insulin pump - SSI, fixed dose insulin, levemir, sugars are stable - follow BS - hold insulin pump - Basal [id number] 2.6 [id number] 4.6 - Carb ratio 2.5 - can have insulin pump at inpatient rehab Postop anemia, anticipated outcome of surgery -Follow CBC -No indication for transfusion at this time HTN - BP managed by CT surgery Leukocytosis Likely reactive, improving Anemia, thro Acute kidney injury, resolved thrombocytopenia, resolved Chronic: History of cirrhosis History of Leonard's esophagus History of iron deficiency anemia Asthma Thank you for allowing us to participate in the care of this pleasant patient. Do not hesitate to contact us with questions. Someone can be reached from the [facility] hospitalist group all hours of the day at [phone] or via perfect serve. Objective - Vital Signs Vital signs: Vital Signs Temp 98.3 F 04/18/22 09:00 Pulse 92 04/18/22 09:00 Resp 24 04/18/22 09:00 BP 105/52 04/18/22 09:00 Pulse Ox 97 04/18/22 09:00 FiO2 50 04/18/22 04:15 Intake & Output 04/17/22 04/18/22 04/18/22 18:59 06:59 18:59 Intake Total 545 840 180 Output Total 705 440 65 Balance -160 400 115 Weight 110.3 kg Intake: Oral 545 840 180 Output: Urine 705 440 65 Other: Voiding Method Indwelling Catheter Indwelling Catheter ABP, PAP, CO, CI - Last Documented Arterial Blood Pressure 73/48 Pulmonary Artery Pressure 38/5 Cardiac Output 5.5 Cardiac Index 2.5 - Labs CBC & Chem 7: 04/18/22 04:58 04/18/22 04:58 Labs: Abnormal Lab Results - Last 24 Hours (Table) 04/17/22 04/17/22 04/17/22 Range/Units 11:26 16:33 20:12 WBC (3.8-10.6) k/uL RBC (4.30-5.90) m/uL Hgb (13.0-17.5) gm/dL Hct (39.0-53.0) % MCH (25.0-35.0) pg MCHC (31.0-37.0) g/dL RDW (11.5-15.5) % Sodium (137-145) mmol/L BUN (9-20) mg/dL Creatinine (0.66-1.25) mg/dL Glucose (74-99) mg/dL POC Glucose (mg/dL) 172 H 186 H 172 H (70-110) mg/dL Calcium (8.4-10.2) mg/dL Magnesium (1.6-2.3) mg/dL AST (17-59) U/L Total Protein (6.3-8.2) g/dL Albumin (3.5-5.0) g/dL 04/18/22 04/18/22 04/18/22 Range/Units 02:10 04:58 04:58 WBC 11.9 H (3.8-10.6) k/uL RBC 2.97 L (4.30-5.90) m/uL Hgb 7.4 L (13.0-17.5) gm/dL Hct 24.1 L (39.0-53.0) % MCH 24.8 L (25.0-35.0) pg MCHC 30.6 L (31.0-37.0) g/dL RDW 19.4 H (11.5-15.5) % Sodium 135 L (137-145) mmol/L BUN 43 H (9-20) mg/dL Creatinine 1.47 H (0.66-1.25) mg/dL Glucose 186 H (74-99) mg/dL POC Glucose (mg/dL) 209 H (70-110) mg/dL Calcium 7.5 L (8.4-10.2) mg/dL Magnesium 2.4 H (1.6-2.3) mg/dL AST 84 H (17-59) U/L Total Protein 4.6 L (6.3-8.2) g/dL Albumin 2.5 L (3.5-5.0) g/dL 04/18/22 Range/Units 06:39 WBC (3.8-10.6) k/uL RBC (4.30-5.90) m/uL Hgb (13.0-17.5) gm/dL Hct (39.0-53.0) % MCH (25.0-35.0) pg MCHC (31.0-37.0) g/dL RDW (11.5-15.5) % Sodium (137-145) mmol/L BUN (9-20) mg/dL Creatinine (0.66-1.25) mg/dL Glucose (74-99) mg/dL POC Glucose (mg/dL) 194 H (70-110) mg/dL Calcium (8.4-10.2) mg/dL Magnesium (1.6-2.3) mg/dL AST (17-59) U/L Total Protein (6.3-8.2) g/dL Albumin (3.5-5.0) g/dL
--- NOTE | 2022-04-18 09:12 | CDI ---
Documentation Clarification Form Date: 04/14/2022 02:34:00 PM From: Aminata Gurrola CCS, CCDS Admit Date: 04/11/2022 05:40:00 AM Patient Name: Negrito Eastman Visit Number: [id number] Discharge Date: ATTENTION: The Clinical Documentation Specialists (CDI) and [facility] Coding Staff appreciate your assistance in clarifying documentation. Please respond to the clarification below the line at the bottom and electronically sign. The CDI & [facility] Coding staff will review the response and follow-up if needed. Please note: Queries are made part of the Legal Health Record. If you have any questions, please contact the author of this message via ITS. Dr. Nicolas Rubio: Hypoxemic respiratory failure, expected outcome of surgery is documented beginning in the 04/11 Pulmonary Consult without further specificity of acuity. Per the 04/17 Pulmonary/Critical Care Progress Note: POD #6, patient is currently on 8L high flow O2, used BiPAP at nighttime settings of 14/5 and 50%. Based on this information and the findings below, is there an additional diagnosis that is clinically appropriate for this patient? 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 04/11 VS status post CABG: T 95.5, P 66 - 70, R 12, BP 114/16, PO 99-100 on 50% vent. 04/11 LAB/Blood Gas (A line): pH: 7.39, 7.33, 7.26. pCO2 37, 43, 50 pO2 >420, 286, 103 Treatment 04/11: Chest Tube management, Incentive Spirometry, Woods catheter, Extubated to 4Lnc, IV Albumin 250 mls @ 250 mls/hr Q1H, INH Duoneb Q2H/prn, IV Amiodarone drip, IV Calcium Gluconate/Na Chl 100 mls @ 100 mls/hr x1/prn, IV Clevidipine 50 mls @ 2ml/shr q24H, IV Precedex 100 mls, IV Dextrose, IV Apresoline 10 mg q1H/prn, INH Ventolin 2.5 mg QID/prn. Is there an additional diagnosis that is clinically appropriate for this patient and please specify if present on admission: [x ] Acute Hypoxic Respiratory Failure [ ] Acute on Chronic Hypoxic Respiratory Failure [ ] Other Diagnosis, please specify: [ ] Unable to determine (Template Last Revised: July 2020) MTDD
[2022-04-18] MEDS: guaiFENesin 600 MG TABLET.ER PO SCH ×2 (09:23→21:12)
[2022-04-18] MEDS: PRIMIDONE 250 MG TAB PO SCH ×2 (09:23→21:15)
[2022-04-18] MEDS: FUROSEMIDE 20 MG TAB PO SCH (09:24)
[2022-04-18] MEDS: CLOPIDOGREL 75 MG TAB PO SCH (09:24)
[2022-04-18] MEDS: CHOLECALCIFEROL 25 MCG (1000 IU) TABLET PO SCH (09:24)
[2022-04-18] MEDS: METOPROLOL TARTRATE 25 MG TAB PO SCH ×2 (09:24→21:12)
[2022-04-18] MEDS: ASCORBIC ACID 500 MG TAB PO SCH (09:24)
[2022-04-18] MEDS: DULoxetine HCL 60 MG CAPSULE.DR PO SCH (09:24)
[2022-04-18] MEDS: AMIODARONE 200 MG TAB PO SCH ×2 (09:24→21:12)
--- NOTE | 2022-04-18 09:30 | P.PN ---
Subjective Progress Note Date: 04/18/22 The patient is a 77-year-old male who is currently admitted to the hospital after undergoing elective CABG 4 on April 11. Postoperative consultations include acute kidney injury, hypotension and anemia. The patient was interviewed and examined sitting comfortably in the recliner chair. He states he does have difficulty breathing especially with ambulation. No current pain at rest. GENERAL: Well-appearing, well-nourished and in no acute distress. NECK: Supple without JVD or thyromegaly. LUNGS: Breath sounds diminished to auscultation bilaterally. Respiration equal and unlabored. Fine crackles in the bilateral bases. HEART: Regular rate and rhythm without murmurs, rubs or gallops. S1 and S2 heard. EXTREMITIES: Normal range of motion, +2 pitting edema. No clubbing or cyanosis. Peripheral pulses intact and strong. VITALS: Blood pressure 105/52, pulse 92, respiratory rate 24, SpO2 97% on 15 L high flow nasal cannula, temp 98.3F TELEMETRY: Sinus rhythm to sinus tachycardia overnight LABS: WBC 11.9, hemoglobin 7.4, hematocrit 24.1, platelet 170, sodium 135, potassium 3.9, BUN 43, creatinine 1.47, AST 84, ALT 30 IMPRESSION: Coronary artery disease, status post CABG 4 Hypertension Dyslipidemia Diabetes mellitus, hemoglobin A1c 9.4 History of smoking PLAN: Continue aggressive pulmonary hygiene and supportive care Further recommendations to be based upon clinical course I am dictating on behalf of Dr Butch Chew's history/physical and assessment/plan. Objective - Vital Signs Vital signs: Vital Signs Temp 98.3 F 04/18/22 09:00 Pulse 92 04/18/22 09:00 Resp 24 04/18/22 09:00 BP 105/52 04/18/22 09:00 Pulse Ox 97 04/18/22 09:00 FiO2 50 04/18/22 04:15 Intake & Output 04/17/22 04/18/22 04/18/22 18:59 06:59 18:59 Intake Total 545 840 417 Output Total 705 440 65 Balance -160 400 352 Weight 110.3 kg Intake: Oral 545 840 417 Output: Urine 705 440 65 Other: Voiding Method Indwelling Catheter Indwelling Catheter ABP, PAP, CO, CI - Last Documented Arterial Blood Pressure 73/48 Pulmonary Artery Pressure 38/5 Cardiac Output 5.5 Cardiac Index 2.5 - Labs CBC & Chem 7: 04/18/22 04:58 04/18/22 04:58 Labs: Abnormal Lab Results - Last 24 Hours (Table) 04/17/22 04/17/22 04/17/22 Range/Units 11:26 16:33 20:12 WBC (3.8-10.6) k/uL RBC (4.30-5.90) m/uL Hgb (13.0-17.5) gm/dL Hct (39.0-53.0) % MCH (25.0-35.0) pg MCHC (31.0-37.0) g/dL RDW (11.5-15.5) % Sodium (137-145) mmol/L BUN (9-20) mg/dL Creatinine (0.66-1.25) mg/dL Glucose (74-99) mg/dL POC Glucose (mg/dL) 172 H 186 H 172 H (70-110) mg/dL Calcium (8.4-10.2) mg/dL Magnesium (1.6-2.3) mg/dL AST (17-59) U/L Total Protein (6.3-8.2) g/dL Albumin (3.5-5.0) g/dL 04/18/22 04/18/22 04/18/22 Range/Units 02:10 04:58 04:58 WBC 11.9 H (3.8-10.6) k/uL RBC 2.97 L (4.30-5.90) m/uL Hgb 7.4 L (13.0-17.5) gm/dL Hct 24.1 L (39.0-53.0) % MCH 24.8 L (25.0-35.0) pg MCHC 30.6 L (31.0-37.0) g/dL RDW 19.4 H (11.5-15.5) % Sodium 135 L (137-145) mmol/L BUN 43 H (9-20) mg/dL Creatinine 1.47 H (0.66-1.25) mg/dL Glucose 186 H (74-99) mg/dL POC Glucose (mg/dL) 209 H (70-110) mg/dL Calcium 7.5 L (8.4-10.2) mg/dL Magnesium 2.4 H (1.6-2.3) mg/dL AST 84 H (17-59) U/L Total Protein 4.6 L (6.3-8.2) g/dL Albumin 2.5 L (3.5-5.0) g/dL 04/18/22 Range/Units 06:39 WBC (3.8-10.6) k/uL RBC (4.30-5.90) m/uL Hgb (13.0-17.5) gm/dL Hct (39.0-53.0) % MCH (25.0-35.0) pg MCHC (31.0-37.0) g/dL RDW (11.5-15.5) % Sodium (137-145) mmol/L BUN (9-20) mg/dL Creatinine (0.66-1.25) mg/dL Glucose (74-99) mg/dL POC Glucose (mg/dL) 194 H (70-110) mg/dL Calcium (8.4-10.2) mg/dL Magnesium (1.6-2.3) mg/dL AST (17-59) U/L Total Protein (6.3-8.2) g/dL Albumin (3.5-5.0) g/dL
[2022-04-18] MEDS: IPRATROPIUM-ALBUTEROL 3 ML NEB INHALATION SCH ×4 (09:36→19:32)
[2022-04-18] MEDS: SYMBICORT 160-4.5 MCG INHALER INHALATION SCH ×2 (09:36→19:33)
--- NOTE | 2022-04-18 10:09 | P.PN ---
Subjective Progress Note Date: 04/18/22 On 04/18/2022, the patient is being seen for a follow-up. The patient is currently postop day #744 vessel bypass surgery. The patient also has COPD, hypertension, hyperlipidemia, insulin-dependent diabetes mellitus, liver cirrhosis, bronchial asthma, Leonard's esophagus, peripheral vascular disease, history of melanoma and history of iron deficiency in addition to history of depression and history of tremors. His recovered has been essentially slow. After extubation, the patient required BiPAP for respiratory support and subsequently was transitioned to high flow oxygen and currently is on oxygen at 15 L high flow. Most recent chest x-ray shows cardiomegaly, atelectatic changes in the right lung base and small bilateral pleural effusions. Surgical 1 site is dry clean and intact. No airspace disease or consolidations noted on the most recent chest x-ray. The patient oxygen flow is at 15 L with a pulse ox of 95%. At the same time, the patient is receiving diuretics on a daily basis and he was switched to Lasix 20 mg by mouth daily. His fluid balance has been negative to liters on 04/16/2022 and since then she she has been in mild positive fluid balance. He has developed an acute kidney injury. Creatinine today is at 1.4 with a BUN of 43 and a sodium is at 135. Liver function tests are normal. The white cell count is at 11.9 with a hemoglobin of 7.4 platelet count of 170. Blood sugars have been under adequate control and the patient is currently on Levemir insulin 18 units at bedtime and 18 units in the morning and he is also taken a sliding scale coverage. For his still has a Woods catheter in place. Chest tubes have been removed to. Pulmonary case have been resumed. He is on aspirin and Plavix. Is also on amiodarone for prophylactic reasons. He is currently on oral iron. He is on metoprolol 25 mg by mouth twice a day as beta blockers and is also on statins. Objective - Vital Signs Vital signs: Vital Signs Temp 98.3 F 04/18/22 09:00 Pulse 90 04/18/22 09:48 Resp 24 04/18/22 09:00 BP 105/52 04/18/22 09:00 Pulse Ox 97 04/18/22 09:00 FiO2 50 04/18/22 04:15 Intake & Output 04/17/22 04/18/22 04/18/22 18:59 06:59 18:59 Intake Total 545 840 417 Output Total 705 440 65 Balance -160 400 352 Weight 110.3 kg Intake: Oral 545 840 417 Output: Urine 705 440 65 Other: Voiding Method Indwelling Catheter Indwelling Catheter ABP, PAP, CO, CI - Last Documented Arterial Blood Pressure 73/48 Pulmonary Artery Pressure 38/5 Cardiac Output 5.5 Cardiac Index 2.5 - Exam No acute distress, oriented 3. Pale. Currently on high flow oxygen 15 L/min HEENT examination is grossly unremarkable. Neck supple. Full range of motion. No adenopathy thyromegaly or neck vein distention. Cardiovascular examination reveals regular rhythm rate. S1-S2 normal. No S3 or S4. No discernible murmur noted. Heart sounds are distant. Lungs reveal scattered bibasilar crackles, and diffuse coarse rhonchi. His cough is wet and congested. No wheezes. Abdomen soft bowel sounds are heard. No masses or tenderness. Extremities are intact. No cyanosis or clubbing. Trace edema present. Skin is without rash or lesion. Neurologic examination is brief but nonfocal. - Labs CBC & Chem 7: 04/18/22 04:58 04/18/22 04:58 Labs: Abnormal Lab Results - Last 24 Hours (Table) 04/17/22 04/17/22 04/17/22 Range/Units 11:26 16:33 20:12 WBC (3.8-10.6) k/uL RBC (4.30-5.90) m/uL Hgb (13.0-17.5) gm/dL Hct (39.0-53.0) % MCH (25.0-35.0) pg MCHC (31.0-37.0) g/dL RDW (11.5-15.5) % Sodium (137-145) mmol/L BUN (9-20) mg/dL Creatinine (0.66-1.25) mg/dL Glucose (74-99) mg/dL POC Glucose (mg/dL) 172 H 186 H 172 H (70-110) mg/dL Calcium (8.4-10.2) mg/dL Magnesium (1.6-2.3) mg/dL AST (17-59) U/L Total Protein (6.3-8.2) g/dL Albumin (3.5-5.0) g/dL 04/18/22 04/18/22 04/18/22 Range/Units 02:10 04:58 04:58 WBC 11.9 H (3.8-10.6) k/uL RBC 2.97 L (4.30-5.90) m/uL Hgb 7.4 L (13.0-17.5) gm/dL Hct 24.1 L (39.0-53.0) % MCH 24.8 L (25.0-35.0) pg MCHC 30.6 L (31.0-37.0) g/dL RDW 19.4 H (11.5-15.5) % Sodium 135 L (137-145) mmol/L BUN 43 H (9-20) mg/dL Creatinine 1.47 H (0.66-1.25) mg/dL Glucose 186 H (74-99) mg/dL POC Glucose (mg/dL) 209 H (70-110) mg/dL Calcium 7.5 L (8.4-10.2) mg/dL Magnesium 2.4 H (1.6-2.3) mg/dL AST 84 H (17-59) U/L Total Protein 4.6 L (6.3-8.2) g/dL Albumin 2.5 L (3.5-5.0) g/dL 04/18/22 Range/Units 06:39 WBC (3.8-10.6) k/uL RBC (4.30-5.90) m/uL Hgb (13.0-17.5) gm/dL Hct (39.0-53.0) % MCH (25.0-35.0) pg MCHC (31.0-37.0) g/dL RDW (11.5-15.5) % Sodium (137-145) mmol/L BUN (9-20) mg/dL Creatinine (0.66-1.25) mg/dL Glucose (74-99) mg/dL POC Glucose (mg/dL) 194 H (70-110) mg/dL Calcium (8.4-10.2) mg/dL Magnesium (1.6-2.3) mg/dL AST (17-59) U/L Total Protein (6.3-8.2) g/dL Albumin (3.5-5.0) g/dL Assessment and Plan Plan: Coronary artery disease status post coronary artery bypass grafting 4 with a SANTA to the LAD, left radial artery graft to the first obtuse marginal, saphenous vein graft to the first diagonal, saphenous vein graft to the posterior lateral branch of the RCA. Left atrial appendage clip. Postoperative day #7 Acute hypoxemic respiratory failure secondary to above. Patient is currently on oxygen at 15 L nasal cannula Acute kidney injury, creatinine is up to 1.4 Postoperative anemia my expected outcome of surgery and the patient has a stable hemoglobin for now Hypertension, history of. Hyperlipidemia. History of melanoma of the left eyelid, resected. Leonard's esophagus. Parkinson tremors. Former smoker, quit 30 years ago. Chronic obstructive pulmonary disease. The patient has a preserved FEV1 of 88% of predicted Peripheral vascular disease History of liver cirrhosis History of skin melanoma History of chronic generalized anxiety disorder/depression Diabetes mellitus, with insulin dependence Degenerative arthritis Chronic back pain Iron deficiency anemia Peripheral neuropathy Plan Aggressive physical therapy Deep breathing and using incentive spirometer Monitor renal function Continue diuretics Monitor oxygenation Repeat chest x-ray in the morning and if needed we'll do an ultrasound of the chest to evaluate for any follow-up and pleural effusions Wean down FiO2 to maintain a saturation above 90%, I weaning down already down to 12 L continue bronchodilators We'll continue to follow
[2022-04-18 11:39] LABS: Glucose,Whole Blood 274 mg/dL (70-110)
[2022-04-18 16:42] LABS: Glucose,Whole Blood 353 mg/dL (70-110)
[2022-04-18] MEDS: TAMSULOSIN 0.4 MG CAP.ER.24H PO SCH (16:43)
[2022-04-18 20:26] LABS: Glucose,Whole Blood 194 mg/dL (70-110)
[2022-04-18] MEDS: ASPIRIN 81 MG PO SCH (21:12)
[2022-04-18] MEDS: ATORVASTATIN 40 MG TAB PO SCH (21:12)
[2022-04-18] MEDS: SENNOSIDES-DOCUSATE SODIUM 1 EACH TAB PO SCH (21:12)
[2022-04-19] MEDS: HEPARIN SODIUM,PORCINE/PF 5,000 UNIT/0.5 ML SYRINGE SQ SCH ×3 (00:32→16:08)
[2022-04-19 03:59] LABS: Glucose,Whole Blood 166 mg/dL (70-110)
[2022-04-19 06:29] LABS: Glucose,Whole Blood 173 mg/dL (70-110)
[2022-04-19 06:45] LABS: Anisocytosis Slight; HCT 25.2 % (39.0-53.0); HGB 7.7 gm/dL (13.0-17.5); Hypochromasia Marked; MCH 24.7 pg (25.0-35.0); MCHC 30.5 g/dL (31.0-37.0); MCV 80.8 fL (80.0-100.0); Mean Platelet Volume 8.4; Microcytosis Slight; Platelet Count 218 k/uL (150-450); Poikilocytosis Slight; RBC 3.11 m/uL (4.30-5.90); RDW 19.4 % (11.5-15.5); WBC 16.9 k/uL (3.8-10.6)
[2022-04-19 07:02] LABS: Calcium 7.3 mg/dL (8.4-10.2); Magnesium 2.4 mg/dL (1.6-2.3)
[2022-04-19] MEDS: INSULIN DETEMIR (LEVEMIR) 100 UNIT/ML SYR SQ SCH ×2 (07:41→20:13)
[2022-04-19] MEDS: PANTOPRAZOLE 40 MG TABLET PO SCH ×2 (07:42→17:57)
[2022-04-19] MEDS: INSULIN ASPART (NovoLOG) 100 UNIT/ML VIAL SQ SCH ×7 (07:42→20:13)
[2022-04-19] MEDS: FERROUS SULFATE 325 MG TAB PO SCH ×2 (07:42→17:57)
--- NOTE | 2022-04-19 07:47 | XR ---
EXAMINATION TYPE: XR chest 1V portable DATE OF EXAM: 04/19/2022 6:04 AM COMPARISON: Chest radiographs from 04/18/2022. TECHNIQUE: XR chest 1V portable Frontal view of the chest. CLINICAL INDICATION:Male, 77 years old with history of post cardiac surgery; FINDINGS: Lungs/Pleura: No pneumothorax. Small bilateral pleural effusions with bibasilar patchy airspace opaci ties. Pulmonary vascularity: Unremarkable. Heart/mediastinum: Cardiomediastinal silhouette is enlarged and stable. Left atrial appendage occlus ion device present. Musculoskeletal: No acute osseous pathology. Midline sternotomy wires and clips are noted and stable. IMPRESSION: Small bilateral pleural effusions with bibasilar patchy airspace opacities which may represent atelec tasis with infiltrate not excluded.
[2022-04-19] MEDS: guaiFENesin 600 MG TABLET.ER PO SCH ×2 (08:04→20:12)
[2022-04-19] MEDS: ASCORBIC ACID 500 MG TAB PO SCH (08:04)
[2022-04-19] MEDS: CLOPIDOGREL 75 MG TAB PO SCH (08:04)
[2022-04-19] MEDS: DULoxetine HCL 60 MG CAPSULE.DR PO SCH (08:04)
[2022-04-19] MEDS: FUROSEMIDE 20 MG TAB PO SCH (08:04)
[2022-04-19] MEDS: AMIODARONE 200 MG TAB PO SCH ×2 (08:04→20:12)
[2022-04-19] MEDS: CHOLECALCIFEROL 25 MCG (1000 IU) TABLET PO SCH (08:04)
[2022-04-19] MEDS: METOPROLOL TARTRATE 25 MG TAB PO SCH ×2 (08:05→20:13)
[2022-04-19] MEDS: PRIMIDONE 250 MG TAB PO SCH ×2 (08:05→20:12)
[2022-04-19] MEDS: IPRATROPIUM-ALBUTEROL 3 ML NEB INHALATION SCH ×4 (08:16→20:38)
[2022-04-19] MEDS: SYMBICORT 160-4.5 MCG INHALER INHALATION SCH ×2 (08:16→20:38)
--- NOTE | 2022-04-19 08:38 | P.PN ---
Subjective Progress Note Date: 04/19/22 Principal diagnosis: Coronary artery disease. Previous medical history of hypertension, hyperlipidemia, insulin-dependent diabetes, previous tobacco dependence, mild COPD, asthma, liver cirrhosis, Leonard's esophagus, PAD, melanoma skin cancer, chronic iron deficiency anemia, essential tremors, depression, and family history of coronary artery disease POD #8 off-pump coronary artery bypass grafting 4 with left internal mammary artery to the left anterior descending artery, left radial artery graft to the first obtuse marginal artery, reverse saphenous vein graft to the first diagonal artery, reverse saphenous vein graft to the posterior lateral branch of the right coronary artery, ligation of the left atrial appendage with a 35 mm AtriCure clamp, endovascular vein harvest of bilateral greater saphenous vein and endovascular left radial artery harvest. Intraoperative transesophageal echocardiogram performed by anesthesia. Postoperative acute blood loss anemia, expected given hemodilution and preoperative anemia The patient was seen and examined this morning sitting up in a recliner on the intensive care unit in no acute distress. Remains in sinus rhythm, hemodynamically stable. Denies chest pain, shortness of breath. Currently on 6LPM hi flow NC with oxygen saturation 97%, able to achieve 8030-0119 mL on incentive spirometry. Oriented to person, place, time and situation. Patient continues to have significant weakness/debility, will need ONIEL at discharge, insurance auth started, anticipate discharge tomorrow if insurance authorization obtained. Labs and chest x-ray reviewed. No other new concerns. Objective - Vital Signs Vital signs: Vital Signs Temp 98.2 F 04/18/22 16:00 Pulse 85 04/19/22 08:29 Resp 8 L 04/19/22 07:00 BP 121/55 04/19/22 07:00 Pulse Ox 89 L 04/19/22 05:00 FiO2 50 04/19/22 04:42 Intake & Output 04/18/22 04/19/22 04/19/22 18:59 06:59 18:59 Intake Total 857 Output Total 430 520 50 Balance 427 -520 -50 Weight 111.1 kg Intake: Oral 857 Output: Urine 430 520 50 Other: Voiding Method Indwelling Catheter Indwelling Catheter ABP, PAP, CO, CI - Last Documented Arterial Blood Pressure 73/48 Pulmonary Artery Pressure 38/5 Cardiac Output 5.5 Cardiac Index 2.5 - Exam CONSTITUTIONAL: Appears comfortable, cooperative, no acute distress RESPIRATORY: Lungs sounds diminished bilaterally. Respirations even, non labored. Currently on 6 L high flow nasal cannula with oxygen saturation 97%. Able to achieve 8026-3366 mL on his incentive spirometry. Strong harsh cough. CARDIOVASCULAR: S1, S2 present. Regular rate and rhythm, sinus rhythm on telemetry. Sternum stable. Palpable peripheral pulses bilaterally. Generalized edema still present, decreased from yesterday. No calf pain or tenderness noted. Heart hugger in place with patient occasionally demonstrating appropriate use when instructed. Antiembolism stockings, SCDs present. GASTROINTESTINAL: Abdomen soft, nontender, nondistended. Active bowel sounds present 4 quadrants. Tolerating minimal diet. Positive bowel movement 04/19 GENITOURINARY: Woods present draining clear, yellow urine. Output overnight 35 mL per hour, 900 mL in the last 24 hours INTEGUMENTARY: Skin is warm and dry. Anterior chest incision well approximated and covered with dry intact dressing. Bilateral lower extremity EVH sites well approximated without redness NEUROLOGIC: Cranial nerves II through XII intact MUSKULOSKELETAL: Able to move all extremities, strength equal bilaterally, generalized weakness/debility present PSYCHIATRIC: Alert and oriented to person place and time, appropriate affect - Allied health notes Allied health notes reviewed: nursing - Labs CBC & Chem 7: 04/19/22 06:14 04/19/22 06:14 Labs: Abnormal Lab Results - Last 24 Hours (Table) 04/18/22 04/18/22 04/18/22 Range/Units 11:38 16:41 20:25 WBC (3.8-10.6) k/uL RBC (4.30-5.90) m/uL Hgb (13.0-17.5) gm/dL Hct (39.0-53.0) % MCH (25.0-35.0) pg MCHC (31.0-37.0) g/dL RDW (11.5-15.5) % Sodium (137-145) mmol/L BUN (9-20) mg/dL Creatinine (0.66-1.25) mg/dL Glucose (74-99) mg/dL POC Glucose (mg/dL) 274 H 353 H 194 H (70-110) mg/dL Calcium (8.4-10.2) mg/dL Magnesium (1.6-2.3) mg/dL 1104/19/22 04/19/22 Range/Units 03:57 06:14 06:14 WBC 16.9 H (3.8-10.6) k/uL RBC 3.11 L (4.30-5.90) m/uL Hgb 7.7 L (13.0-17.5) gm/dL Hct 25.2 L (39.0-53.0) % MCH 24.7 L (25.0-35.0) pg MCHC 30.5 L (31.0-37.0) g/dL RDW 19.4 H (11.5-15.5) % Sodium 136 L (137-145) mmol/L BUN 47 H (9-20) mg/dL Creatinine 1.42 H (0.66-1.25) mg/dL Glucose 152 H (74-99) mg/dL POC Glucose (mg/dL) 166 H (70-110) mg/dL Calcium 7.3 L (8.4-10.2) mg/dL Magnesium 2.4 H (1.6-2.3) mg/dL 04/19/22 Range/Units 06:27 WBC (3.8-10.6) k/uL RBC (4.30-5.90) m/uL Hgb (13.0-17.5) gm/dL Hct (39.0-53.0) % MCH (25.0-35.0) pg MCHC (31.0-37.0) g/dL RDW (11.5-15.5) % Sodium (137-145) mmol/L BUN (9-20) mg/dL Creatinine (0.66-1.25) mg/dL Glucose (74-99) mg/dL POC Glucose (mg/dL) 173 H (70-110) mg/dL Calcium (8.4-10.2) mg/dL Magnesium (1.6-2.3) mg/dL - Imaging and Cardiology Chest x-ray: image reviewed Assessment and Plan Assessment: 1. Coronary artery disease, status post four-vessel off-pump CABG 2. History of hypertension 3. Hyperlipidemia, treated, cholesterol 157, LDL 85, triglycerides 169 4. Insulin-dependent diabetes, preoperative hemoglobin A1c 9.4% 5. Previous tobacco dependence 6. Mild COPD, preoperative FEV1 62% of predicted 7. Asthma 8. Liver cirrhosis 9. Leonard's esophagus 10. PAD 11. Melanoma skin cancer 12. Chronic iron deficiency anemia 13. Essential tremors 14. Depression 15. Family history of coronary artery disease 16. Postoperative acute blood loss anemia, expected given hemodilution and preoperative anemia 17. Urinary retention requiring reinitiation of Woods catheter, Flomax 18. Medical debility, generalized weakness 19. Hypoxemic respiratory failure, acquiring BiPAP at night Plan: 1. Continue aspirin, statin, Plavix, beta yolette therapy 2. Continue lasix 20 mg by mouth daily 3. Continue amiodarone for A. fib prophylaxis, ChadsVasc 5 4. Wean O2 as tolerated. Encourage incentive spirometry is 10 times every hour while awake. Bronchodilators, BiPAP management per pulmonology 5. Increase activity, ambulate as tolerated. PT/OT/cardiac rehab following 6. Will monitor daily labs and x-rays. Electrolyte replacement per protocol 7. GI/DVT prophylaxis 8. Insulin management per primary care service, patient needs tighter blood sug ar control. Patient is diabetic, normally on insulin pump 9. Pain control with current medication regimen. Avoid narcotics 10. Strict accurate intake and output, daily weights 11. Continue Flomax, discontinue Woods catheter, attempt voiding trial, reinsert Woods catheter if residual greater than 300 mL 12. Discharge planning in progress. Hopefully discharge to subacute rehab tomorrow pending insurance authorization 13. More recommendations to follow
--- NOTE | 2022-04-19 09:21 | P.PN ---
Subjective Progress Note Date: 04/19/22 The patient is a 77-year-old male who is currently admitted to the hospital after undergoing elective CABG 4 on April 11. Postoperative complications include acute kidney injury, hypotension and anemia. The patient was interviewed and examined sitting comfortably in the recliner chair. He states he does have difficulty breathing especially with ambulation. No current pain at rest. He believes he is feeling better today. GENERAL: Well-appearing, well-nourished and in no acute distress. NECK: Supple without JVD or thyromegaly. LUNGS: Breath sounds diminished to auscultation bilaterally. Respiration equal and unlabored. No wheezes or rhonchi HEART: Regular rate and rhythm without murmurs, rubs or gallops. S1 and S2 heard. EXTREMITIES: Normal range of motion, +2 pitting edema. No clubbing or cyanosis. Peripheral pulses intact and strong. VITALS: Blood pressure 121/55, pulse 85, respiratory rate 20, on high flow nasal cannula TELEMETRY: Sinus rhythm. No arrhythmias overnight LABS: WBC 16.9, hemoglobin 7.7, hematocrit 25.2, platelet 218, sodium 136, potassium 4.0, BUN 47, creatinine 1.42, magnesium 2.4 IMPRESSION: Coronary artery disease, status post CABG 4 Hypertension Dyslipidemia Diabetes mellitus, hemoglobin A1c 9.4 History of smoking PLAN: Continue aggressive pulmonary hygiene and supportive care Encourage ambulation Further recommendations to be based upon clinical course I am dictating on behalf of Dr Butch Chew's history/physical and assessment/plan. Objective - Vital Signs Vital signs: Vital Signs Temp 98.2 F 04/18/22 16:00 Pulse 85 04/19/22 08:29 Resp 8 L 04/19/22 07:00 BP 121/55 04/19/22 07:00 Pulse Ox 89 L 04/19/22 05:00 FiO2 50 04/19/22 04:42 Intake & Output 04/18/22 04/19/22 04/19/22 18:59 06:59 18:59 Intake Total 857 Output Total 430 520 50 Balance 427 -520 -50 Weight 111.1 kg Intake: Oral 857 Output: Urine 430 520 50 Other: Voiding Method Indwelling Catheter Indwelling Catheter ABP, PAP, CO, CI - Last Documented Arterial Blood Pressure 73/48 Pulmonary Artery Pressure 38/5 Cardiac Output 5.5 Cardiac Index 2.5 - Labs CBC & Chem 7: 04/19/22 06:14 04/19/22 06:14 Labs: Abnormal Lab Results - Last 24 Hours (Table) 04/18/22 04/18/22 04/18/22 Range/Units 11:38 16:41 20:25 WBC (3.8-10.6) k/uL RBC (4.30-5.90) m/uL Hgb (13.0-17.5) gm/dL Hct (39.0-53.0) % MCH (25.0-35.0) pg MCHC (31.0-37.0) g/dL RDW (11.5-15.5) % Sodium (137-145) mmol/L BUN (9-20) mg/dL Creatinine (0.66-1.25) mg/dL Glucose (74-99) mg/dL POC Glucose (mg/dL) 274 H 353 H 194 H (70-110) mg/dL Calcium (8.4-10.2) mg/dL Magnesium (1.6-2.3) mg/dL 04/19/22 04/19/22 04/19/22 Range/Units 03:57 06:14 06:14 WBC 16.9 H (3.8-10.6) k/uL RBC 3.11 L (4.30-5.90) m/uL Hgb 7.7 L (13.0-17.5) gm/dL Hct 25.2 L (39.0-53.0) % MCH 24.7 L (25.0-35.0) pg MCHC 30.5 L (31.0-37.0) g/dL RDW 19.4 H (11.5-15.5) % Sodium 136 L (137-145) mmol/L BUN 47 H (9-20) mg/dL Creatinine 1.42 H (0.66-1.25) mg/dL Glucose 152 H (74-99) mg/dL POC Glucose (mg/dL) 166 H (70-110) mg/dL Calcium 7.3 L (8.4-10.2) mg/dL Magnesium 2.4 H (1.6-2.3) mg/dL 04/19/22 Range/Units 06:27 WBC (3.8-10.6) k/uL RBC (4.30-5.90) m/uL Hgb (13.0-17.5) gm/dL Hct (39.0-53.0) % MCH (25.0-35.0) pg MCHC (31.0-37.0) g/dL RDW (11.5-15.5) % Sodium (137-145) mmol/L BUN (9-20) mg/dL Creatinine (0.66-1.25) mg/dL Glucose (74-99) mg/dL POC Glucose (mg/dL) 173 H (70-110) mg/dL Calcium (8.4-10.2) mg/dL Magnesium (1.6-2.3) mg/dL
--- NOTE | 2022-04-19 09:49 | P.PN ---
Subjective Progress Note Date: 04/19/22 Patient is a 77-year-old male with multivessel coronary artery disease, cirrhosis, insulin-dependent diabetes on insulin pump, peripheral vascular disease, history of rectal bleeding, Leonard's esophagus, iron deficiency anemia, melanoma, asthma, depression, former nicotine dependence, occasional alcohol use presenting for elective CABG. He is now status post surgery. CABG 4 with SANTA to LAD, left radial artery graft to first obtuse margin, saphenous vein graft to first diagonal, saphenous vein graft to posterior lateral branch of the RCA. Also had left atrial appendage ligation. [facility] physicians has been consulted for medical management. Patient was successfully extubated and seen by inpatient rehab for evaluation, however, not progressing well with physical therapy. Therefore, plan is for [facility] facility placement for rehab. Likely discharge is 04/20. Sugars have been borderline controlled, insulin has been uptitrated several times, patient is normally on insulin pump and can continue insulin pump as an outpatient. Gen: awake, alert HEENT: normocephalic, atraumatic, good hearing acuity, moist mucous membranes Resp: good air exchange, breathing comfortably with no accessory muscle use CVS: good distal perfusion x 4, GI: soft, NTTP, ND : no SPT, no CVAT, rubio catheter is present MSK: Bilateral 1+ pitting edema, no clubbing Neuro: non-focal, moving all extremities Psych: cooperative, euthymic mood Assessment/plan: Severe multivessel coronary artery disease Status post CABG 4 -Post CABG 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 -Aspirin and Plavix, and statin -Amiodarone drip and transitioned to oral -Pain control and antiemetics -Subcu heparin for DVT prophylaxis -PT consult, requires significant encouragement to increase mobility Insulin-dependent diabetes, on insulin pump - SSI, fixed dose insulin, levemir, sugars are stable - follow BS - hold insulin pump - Basal [id number] 2.6 [id number] 4.6 - Carb ratio 2.5 - can have insulin pump at inpatient rehab Postop anemia, anticipated outcome of surgery -Follow CBC -No indication for transfusion at this time HTN - BP managed by CT surgery Leukocytosis Likely reactive, improving Anemia, thro Acute kidney injury, resolved thrombocytopenia, resolved Chronic: History of cirrhosis History of Leonard's esophagus History of iron deficiency anemia Asthma Thank you for allowing us to participate in the care of this pleasant patient. Do not hesitate to contact us with questions. Someone can be reached from the [facility] hospitalist group all hours of the day at [phone] or via perfect serve. Objective - Vital Signs Vital signs: Vital Signs Temp 98.2 F 04/18/22 16:00 Pulse 85 04/19/22 08:29 Resp 8 L 04/19/22 07:00 BP 121/55 04/19/22 07:00 Pulse Ox 89 L 04/19/22 05:00 FiO2 50 04/19/22 04:42 Intake & Output 04/18/22 04/19/22 04/19/22 18:59 06:59 18:59 Intake Total 857 Output Total 430 520 50 Balance 427 -520 -50 Weight 111.1 kg Intake: Oral 857 Output: Urine 430 520 50 Other: Voiding Method Indwelling Catheter Indwelling Catheter ABP, PAP, CO, CI - Last Documented Arterial Blood Pressure 73/48 Pulmonary Artery Pressure 38/5 Cardiac Output 5.5 Cardiac Index 2.5 - Labs CBC & Chem 7: 04/19/22 06:14 04/19/22 06:14 Labs: Abnormal Lab Results - Last 24 Hours (Table) 04/18/22 04/18/22 04/18/22 Range/Units 11:38 16:41 20:25 WBC (3.8-10.6) k/uL RBC (4.30-5.90) m/uL Hgb (13.0-17.5) gm/dL Hct (39.0-53.0) % MCH (25.0-35.0) pg MCHC (31.0-37.0) g/dL RDW (11.5-15.5) % Sodium (137-145) mmol/L BUN (9-20) mg/dL Creatinine (0.66-1.25) mg/dL Glucose (74-99) mg/dL POC Glucose (mg/dL) 274 H 353 H 194 H (70-110) mg/dL Calcium (8.4-10.2) mg/dL Magnesium (1.6-2.3) mg/dL 04/19/22 04/19/22 04/19/22 Range/Units 03:57 06:14 06:14 WBC 16.9 H (3.8-10.6) k/uL RBC 3.11 L (4.30-5.90) m/uL Hgb 7.7 L (13.0-17.5) gm/dL Hct 25.2 L (39.0-53.0) % MCH 24.7 L (25.0-35.0) pg MCHC 30.5 L (31.0-37.0) g/dL RDW 19.4 H (11.5-15.5) % Sodium 136 L (137-145) mmol/L BUN 47 H (9-20) mg/dL Creatinine 1.42 H (0.66-1.25) mg/dL Glucose 152 H (74-99) mg/dL POC Glucose (mg/dL) 166 H (70-110) mg/dL Calcium 7.3 L (8.4-10.2) mg/dL Magnesium 2.4 H (1.6-2.3) mg/dL 04/19/22 Range/Units 06:27 WBC (3.8-10.6) k/uL RBC (4.30-5.90) m/uL Hgb (13.0-17.5) gm/dL Hct (39.0-53.0) % MCH (25.0-35.0) pg MCHC (31.0-37.0) g/dL RDW (11.5-15.5) % Sodium (137-145) mmol/L BUN (9-20) mg/dL Creatinine (0.66-1.25) mg/dL Glucose (74-99) mg/dL POC Glucose (mg/dL) 173 H (70-110) mg/dL Calcium (8.4-10.2) mg/dL Magnesium (1.6-2.3) mg/dL
[2022-04-19 11:15] LABS: Glucose,Whole Blood 194 mg/dL (70-110)
[2022-04-19] MEDS: ACETAMINOPHEN TAB 325 MG TAB PO PRN ×2 (11:49→17:57)
--- NOTE | 2022-04-19 14:57 | P.PN ---
Subjective Progress Note Date: 04/19/22 On 04/18/2022, the patient is being seen for a follow-up. The patient is currently postop day #7 vessel bypass surgery. The patient also has COPD, hypertension, hyperlipidemia, insulin-dependent diabetes mellitus, liver cirrhosis, bronchial asthma, Leonard's esophagus, peripheral vascular disease, history of melanoma and history of iron deficiency in addition to history of depression and history of tremors. His recovered has been essentially slow. After extubation, the patient required BiPAP for respiratory support and subsequently was transitioned to high flow oxygen and currently is on oxygen at 15 L high flow. Most recent chest x-ray shows cardiomegaly, atelectatic changes in the right lung base and small bilateral pleural effusions. Surgical 1 site is dry clean and intact. No airspace disease or consolidations noted on the most recent chest x-ray. The patient oxygen flow is at 15 L with a pulse ox of 95%. At the same time, the patient is receiving diuretics on a daily basis and he was switched to Lasix 20 mg by mouth daily. His fluid balance has been negative to liters on 04/16/2022 and since then she she has been in mild positive fluid balance. He has developed an acute kidney injury. Creatinine today is at 1.4 with a BUN of 43 and a sodium is at 135. Liver function tests are normal. The white cell count is at 11.9 with a hemoglobin of 7.4 platelet count of 170. Blood sugars have been under adequate control and the patient is currently on Levemir insulin 18 units at bedtime and 18 units in the morning and he is also taken a sliding scale coverage. For his still has a Woods catheter in place. Chest tubes have been removed to. Pulmonary case have been resumed. He is on aspirin and Plavix. Is also on amiodarone for prophylactic reasons. He is currently on oral iron. He is on metoprolol 25 mg by mouth twice a day as beta blockers and is also on statins. On 04/19/2022, the patient is being seen for a follow-up. On today's evaluation, the patient has been weaned down to 6 L of oxygen by nasal cannula. The patient using incentive spirometer and pulling approximately 1000. The patient has no specific complaints. No significant cough or sputum production. No chest tightness. No wheezing. He has multiple comorbidities as discussed earlier. The patient is postop day #8. Note that the patient underwent four- vessel bypass surgery. On yesterday's evaluation, the patient was quite hypoxic and his oxygenation improved. He is on bronchodilators. He is on Symbicort as maintenance for now. He is on Levemir insulin for blood sugar control at a dose of 18 units in the evening and 9 units of NovoLog 3 times a day. He is on Lasix orally 20 mg by mouth daily. IV fluids are currently at KVO. On his blood work, the white cell count at 16 with a hemoglobin of 7.7, his sodium level of 136, potassium is 4, chloride is 105, bicarb is 24, BUN is 47 and a creatinine is at 1.4. The chest x-ray from today shows small bilateral pleural effusion and patchy infiltration lung bases. Pneumonia is doubtful. Patient is awake and alert and moving all extremities and following commands without any limitation. Objective - Vital Signs Vital signs: Vital Signs Temp 98.2 F 04/18/22 16:00 Pulse 85 04/19/22 08:29 Resp 8 L 04/19/22 07:00 BP 121/55 04/19/22 07:00 Pulse Ox 89 L 04/19/22 05:00 FiO2 50 04/19/22 04:42 Intake & Output 04/18/22 04/19/22 04/19/22 18:59 06:59 18:59 Intake Total 857 Output Total 430 520 50 Balance 427 -520 -50 Weight 111.1 kg Intake: Oral 857 Output: Urine 430 520 50 Other: Voiding Method Indwelling Catheter Indwelling Catheter ABP, PAP, CO, CI - Last Documented Arterial Blood Pressure 73/48 Pulmonary Artery Pressure 38/5 Cardiac Output 5.5 Cardiac Index 2.5 - Exam No acute distress, oriented 3. Pale. Currently on high flow oxygen 6 L/min HEENT examination is grossly unremarkable. Neck supple. Full range of motion. No adenopathy thyromegaly or neck vein distention. Cardiovascular examination reveals regular rhythm rate. S1-S2 normal. No S3 or S4. No discernible murmur noted. Heart sounds are distant. Lungs reveal scattered bibasilar crackles, and diffuse coarse rhonchi. His cough is wet and congested. No wheezes. Abdomen soft bowel sounds are heard. No masses or tenderness. Extremities are intact. No cyanosis or clubbing. Trace edema present. Skin is without rash or lesion. Neurologic examination is brief but nonfocal. - Labs CBC & Chem 7: 04/19/22 06:14 04/19/22 06:14 Labs: Abnormal Lab Results - Last 24 Hours (Table) 04/18/22 04/18/22 04/18/22 Range/Units 11:38 16:41 20:25 WBC (3.8-10.6) k/uL RBC (4.30-5.90) m/uL Hgb (13.0-17.5) gm/dL Hct (39.0-53.0) % MCH (25.0-35.0) pg MCHC (31.0-37.0) g/dL RDW (11.5-15.5) % Sodium (137-145) mmol/L BUN (9-20) mg/dL Creatinine (0.66-1.25) mg/dL Glucose (74-99) mg/dL POC Glucose (mg/dL) 274 H 353 H 194 H (70-110) mg/dL Calcium (8.4-10.2) mg/dL Magnesium (1.6-2.3) mg/dL 04/19/22 04/19/22 04/19/22 Range/Units 03:57 06:14 06:14 WBC 16.9 H (3.8-10.6) k/uL RBC 3.11 L (4.30-5.90) m/uL Hgb 7.7 L (13.0-17.5) gm/dL Hct 25.2 L (39.0-53.0) % MCH 24.7 L (25.0-35.0) pg MCHC 30.5 L (31.0-37.0) g/dL RDW 19.4 H (11.5-15.5) % Sodium 136 L (137-145) mmol/L BUN 47 H (9-20) mg/dL Creatinine 1.42 H (0.66-1.25) mg/dL Glucose 152 H (74-99) mg/dL POC Glucose (mg/dL) 166 H (70-110) mg/dL Calcium 7.3 L (8.4-10.2) mg/dL Magnesium 2.4 H (1.6-2.3) mg/dL 04/19/ Range/Units 06:27 WBC (3.8-10.6) k/uL RBC (4.30-5.90) m/uL Hgb (13.0-17.5) gm/dL Hct (39.0-53.0) % MCH (25.0-35.0) pg MCHC (31.0-37.0) g/dL RDW (11.5-15.5) % Sodium (137-145) mmol/L BUN (9-20) mg/dL Creatinine (0.66-1.25) mg/dL Glucose (74-99) mg/dL POC Glucose (mg/dL) 173 H (70-110) mg/dL Calcium (8.4-10.2) mg/dL Magnesium (1.6-2.3) mg/dL Assessment and Plan Plan: Coronary artery disease status post coronary artery bypass grafting 4 with a SANTA to the LAD, left radial artery graft to the first obtuse marginal, saphenous vein graft to the first diagonal, saphenous vein graft to the posterior lateral branch of the RCA. Left atrial appendage clip. Postoperative day #8 Acute hypoxemic respiratory failure secondary to above. Patient is currently on oxygen at 6 L nasal cannula, and the patient continues to have small effusions and some limited atelectatic changes lung base bilaterally. Acute kidney injury, creatinine is up to 1.42 Postoperative anemia my expected outcome of surgery and the patient has a stable hemoglobin for now, 7.7 Hypertension, history of. Hyperlipidemia. History of melanoma of the left eyelid, resected. Leonard's esophagus. Parkinson tremors. Former smoker, quit 30 years ago. Chronic obstructive pulmonary disease. The patient has a preserved FEV1 of 88% of predicted Peripheral vascular disease History of liver cirrhosis History of skin melanoma History of chronic generalized anxiety disorder/depression Diabetes mellitus, with insulin dependence Degenerative arthritis Chronic back pain Iron deficiency anemia Peripheral neuropathy Plan Aggressive physical therapy Deep breathing and using incentive spirometer Monitor renal function Continue diuretics Monitor oxygenation Repeat chest x-ray in the morning and if needed we'll do an ultrasound of the chest to evaluate for any follow-up and pleural effusions Wean down FiO2 to maintain a saturation above 90%, I weaning down already down to 6 L continue bronchodilators We'll continue to follow
[2022-04-19 17:08] LABS: Glucose,Whole Blood 143 mg/dL (70-110)
[2022-04-19] MEDS: TAMSULOSIN 0.4 MG CAP.ER.24H PO SCH (17:57)
[2022-04-19 20:01] LABS: Glucose,Whole Blood 189 mg/dL (70-110)
[2022-04-19] MEDS: ATORVASTATIN 40 MG TAB PO SCH (20:12)
[2022-04-19] MEDS: ASPIRIN 81 MG PO SCH (20:12)
[2022-04-19] MEDS: SENNOSIDES-DOCUSATE SODIUM 1 EACH TAB PO SCH (20:12)
[2022-04-20] MEDS ORDERED: HALOPERIDOL LACTATE 5 MG/ML 1 ML VIAL ONE (00:42)
[2022-04-20] MEDS: HEPARIN SODIUM,PORCINE/PF 5,000 UNIT/0.5 ML SYRINGE SQ SCH ×3 (01:19→17:48)
[2022-04-20] MEDS: ACETAMINOPHEN TAB 325 MG TAB PO PRN ×3 (01:23→15:22)
[2022-04-20 06:44] LABS: Glucose,Whole Blood 115 mg/dL (70-110)
[2022-04-20] MEDS: INSULIN ASPART (NovoLOG) 100 UNIT/ML VIAL SQ SCH ×7 (07:31→22:21)
[2022-04-20] MEDS: INSULIN DETEMIR (LEVEMIR) 100 UNIT/ML SYR SQ SCH ×2 (07:37→22:21)
[2022-04-20] MEDS: FERROUS SULFATE 325 MG TAB PO SCH ×2 (07:37→18:29)
[2022-04-20] MEDS: PANTOPRAZOLE 40 MG TABLET PO SCH ×2 (07:37→18:29)
[2022-04-20 07:59] LABS: Anisocytosis Slight; HCT 26.5 % (39.0-53.0); HGB 7.9 gm/dL (13.0-17.5); Hypochromasia Marked; MCH 24.4 pg (25.0-35.0); MCHC 29.9 g/dL (31.0-37.0); MCV 81.8 fL (80.0-100.0); Mean Platelet Volume 8.3; Platelet Count 250 k/uL (150-450); Poikilocytosis Slight; RBC 3.24 m/uL (4.30-5.90); WBC 19.9 k/uL (3.8-10.6)
[2022-04-20] MEDS: IPRATROPIUM-ALBUTEROL 3 ML NEB INHALATION SCH ×4 (08:00→21:55)
[2022-04-20] MEDS: SYMBICORT 160-4.5 MCG INHALER INHALATION SCH ×2 (08:00→19:14)
--- NOTE | 2022-04-20 08:18 | XR ---
EXAMINATION TYPE: XR chest 1V portable DATE OF EXAM: 04/20/2022 6:20 AM COMPARISON: Chest radiograph from one day prior. TECHNIQUE: XR chest 1V portable Frontal view of the chest. CLINICAL INDICATION:Male, 77 years old with history of post cardiac surgery; FINDINGS: Lungs/Pleura: Bibasilar airspace opacities. There is no evidence of focal consolidation, or pneumotho rax. Possible layering pleural effusions bilaterally. Pulmonary vascularity: Unremarkable. Heart/mediastinum: Cardiomediastinal silhouette is enlarged and stable. Left atrial appendage occlusi on device is present. Musculoskeletal: No acute osseous pathology. Midline sternotomy wires are noted. IMPRESSION: Similar bibasilar opacities likely representing atelectasis with questionable bilateral pleural effus ions layering.
[2022-04-20] MEDS: CHOLECALCIFEROL 25 MCG (1000 IU) TABLET PO SCH (08:19)
[2022-04-20] MEDS: ASCORBIC ACID 500 MG TAB PO SCH (08:19)
[2022-04-20] MEDS: AMIODARONE 200 MG TAB PO SCH (08:19)
[2022-04-20] MEDS: FUROSEMIDE 20 MG TAB PO SCH (08:20)
[2022-04-20] MEDS: DULoxetine HCL 60 MG CAPSULE.DR PO SCH (08:20)
[2022-04-20] MEDS: METOPROLOL TARTRATE 25 MG TAB PO SCH ×2 (08:20→22:02)
[2022-04-20] MEDS: CLOPIDOGREL 75 MG TAB PO SCH (08:20)
[2022-04-20] MEDS: PRIMIDONE 250 MG TAB PO SCH ×2 (08:20→22:02)
[2022-04-20] MEDS: guaiFENesin 600 MG TABLET.ER PO SCH ×2 (08:20→22:02)
[2022-04-20 08:25] LABS: Calcium 7.5 mg/dL (8.4-10.2); Potassium 4.1 mmol/L (3.5-5.1)
--- NOTE | 2022-04-20 11:08 | US ---
EXAMINATION TYPE: US chest DATE OF EXAM: 04/20/2022 COMPARISON: NONE CLINICAL HISTORY: Bilateral effusions. TECHNIQUE: Targeted ultrasound of the posterior lower bilateral hemithoraces Exam done portable in ICU Technically difficult and limited study due to morbidly obese patient with limited mobility EXAM MEASUREMENTS: Right Pleural Effusion pocket size: 1.9 cm Right skin surface to fluid distance: 3.3 cm Lung within anterior portion of fluid pocket Left Pleural Effusion pocket size: 7.2 cm Left skin surface to fluid distance: 3.9 cm Right side not marked for possible thoracentesis outside the dept. Left side marked for possible thoracentesis outside the dept. Pulmonologists are able to review the images in the patient?s EMR. IMPRESSIONS: Left pleural effusion, trace right pleural effusion too small to safely aspirate.
--- NOTE | 2022-04-20 11:14 | P.PCN ---
Date of Procedure: 04/20/22 Operative Findings: Date of Procedure: 04/20/22 Preoperative Diagnosis: Left-sided pleural effusion Postoperative Diagnosis: Left-sided pleural effusion Procedure(s) Performed: Left-sided thoracentesis Anesthesia: local Surgeon: Duane Wells Estimated Blood Loss (ml): 0 Condition: stable Disposition: ICU Operative Findings: A time out was performed and the chest x-ray was reviewed, the appropriate side was confirmed and marked. My hands were washed immediately prior to the procedure. I wore a surgical cap, mask with protective eyewear, sterile gown and sterile gloves throughout the procedure. The patient was prepped and draped in a sterile manner using chlorhexidine scrub after the appropriate level was percussed and confirmed by ultrasound. 1% lidocaine was used to anesthesize the skin, subcutaneous tissue, superior aspect of the rib periosteum and parietal pleura. A finder needle was then introduced over the superior aspect of the rib to locate the pleural fluid; 2colored fluid was aspirated at a depth of approximately 2 cm. A 10-blade scalpel was used to asia the skin at the insertion site. The [id number] needle was then introduced through the skin incision into the pleural space using negative aspiration pressure and the red colometric indicator to confirm appropriate positioning of the needle. The thoracentesis catheter was then threaded without difficulty. 300 ml of turbid colored fluid was removed without difficulty. The catheter was then removed. No immediate complications were noted during the procedure. A post-procedure chest x-ray is pending at the time of this note. The fluid will be sent for studies. Estimated blood loss is 0cc
--- NOTE | 2022-04-20 11:23 | P.PN ---
Subjective Progress Note Date: 04/20/22 Principal diagnosis: CAD He is still weak, had a low grade temp of 99.1 last night. No overnight issues. Objective - Vital Signs Vital signs: Vital Signs Temp 99.2 F 04/20/22 08:00 Pulse 87 04/20/22 10:00 Resp 20 04/20/22 10:00 BP 109/51 04/20/22 10:00 Pulse Ox 95 04/20/22 10:00 FiO2 50 04/19/22 04:42 Intake & Output 04/19/22 04/20/22 04/20/22 18:59 06:59 18:59 Intake Total 850 450 250 Output Total 515 500 0 Balance 335 -50 250 Weight 111 kg Intake: Oral 850 450 250 Output: Urine 515 500 0 Other: Voiding Method Indwelling Catheter # Voids 1 ABP, PAP, CO, CI - Last Documented Arterial Blood Pressure 73/48 Pulmonary Artery Pressure 38/5 Cardiac Output 5.5 Cardiac Index 2.5 - Exam Gen: awake, alert HEENT: normocephalic, atraumatic, good hearing acuity, moist mucous membranes Neck: supple. Resp: good air exchange, breathing comfortably with no accessory muscle use CVS: good distal perfusion x 4, GI: soft, NTTP, ND : no SPT, no CVAT, rubio catheter is present MSK: Bilateral 1+ pitting edema, no clubbing Neuro: general weakness Psych: cooperative, euthymic mood - Labs CBC & Chem 7: 04/20/22 07:39 04/20/22 07:39 Labs: Abnormal Lab Results - Last 24 Hours (Table) 04/19/22 04/19/22 04/19/22 Range/Units 11:14 17:06 20:00 WBC (3.8-10.6) k/uL RBC (4.30-5.90) m/uL Hgb (13.0-17.5) gm/dL Hct (39.0-53.0) % MCH (25.0-35.0) pg MCHC (31.0-37.0) g/dL RDW (11.5-15.5) % Sodium (137-145) mmol/L BUN (9-20) mg/dL Creatinine (0.66-1.25) mg/dL Glucose (74-99) mg/dL POC Glucose (mg/dL) 194 H 143 H 189 H (70-110) mg/dL Calcium (8.4-10.2) mg/dL 04/20/22 04/20/22 04/20/22 Range/Units 06:42 07:39 07:39 WBC 19.9 H (3.8-10.6) k/uL RBC 3.24 L (4.30-5.90) m/uL Hgb 7.9 L (13.0-17.5) gm/dL Hct 26.5 L (39.0-53.0) % MCH 24.4 L (25.0-35.0) pg MCHC 29.9 L (31.0-37.0) g/dL RDW 19.0 H (11.5-15.5) % Sodium 135 L (137-145) mmol/L BUN 41 H (9-20) mg/dL Creatinine 1.33 H (0.66-1.25) mg/dL Glucose 117 H (74-99) mg/dL POC Glucose (mg/dL) 115 H (70-110) mg/dL Calcium 7.5 L (8.4-10.2) mg/dL Assessment and Plan Plan: Severe multivessel coronary artery disease Status post CABG 4 -Post CABG 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 -Aspirin and Plavix, and statin -Amiodarone drip and transitioned to oral -Pain control and antiemetics -Subcu heparin for DVT prophylaxis -PT consult, requires significant encouragement to increase mobility Insulin-dependent diabetes, on insulin pump - SSI, fixed dose insulin, levemir, sugars are stable - follow BS - hold insulin pump - Basal [id number] 2.6 [id number] 4.6 - Carb ratio 2.5 - can have insulin pump at inpatient rehab Postop anemia, anticipated outcome of surgery -Follow CBC -No indication for transfusion at this time HTN - BP managed by CT surgery Leukocytosis Likely reactive Anemia, thro Acute kidney injury, resolved thrombocytopenia, resolved Chronic: History of cirrhosis History of Leonard's esophagus History of iron deficiency anemia Asthma
--- NOTE | 2022-04-20 11:36 | P.PN ---
Subjective Patient is resting comfortably in bed He underwent coronary artery bypass grafting over a week back Postoperative issues include acute kidney injury hypertension and anemia He denies any chest discomfort no undue shortness of breath Blood pressure 110/56. His mercury pulse rate in the 70s to 80s Suggest Continue current cardiovascular care Objective - Vital Signs Vital signs: Vital Signs Temp 99.2 F 04/20/22 08:00 Pulse 87 04/20/22 10:00 Resp 20 04/20/22 10:00 BP 109/51 04/20/22 10:00 Pulse Ox 95 04/20/22 10:00 FiO2 50 04/19/22 04:42 Intake & Output 04/19/22 04/20/22 04/20/22 18:59 06:59 18:59 Intake Total 850 450 250 Output Total 515 500 0 Balance 335 -50 250 Weight 111 kg Intake: Oral 850 450 250 Output: Urine 515 500 0 Other: Voiding Method Indwelling Catheter # Voids 1 ABP, PAP, CO, CI - Last Documented Arterial Blood Pressure 73/48 Pulmonary Artery Pressure 38/5 Cardiac Output 5.5 Cardiac Index 2.5 - Labs CBC & Chem 7: 04/20/22 07:39 04/20/22 07:39 Labs: Abnormal Lab Results - Last 24 Hours (Table) 04/19/22 04/19/22 04/20/22 Range/Units 17:06 20:00 06:42 WBC (3.8-10.6) k/uL RBC (4.30-5.90) m/uL Hgb (13.0-17.5) gm/dL Hct (39.0-53.0) % MCH (25.0-35.0) pg MCHC (31.0-37.0) g/dL RDW (11.5-15.5) % Sodium (137-145) mmol/L BUN (9-20) mg/dL Creatinine (0.66-1.25) mg/dL Glucose (74-99) mg/dL POC Glucose (mg/dL) 143 H 189 H 115 H (70-110) mg/dL Calcium (8.4-10.2) mg/dL 04/20/22 04/20/22 Range/Units 07:39 07:39 WBC 19.9 H (3.8-10.6) k/uL RBC 3.24 L (4.30-5.90) m/uL Hgb 7.9 L (13.0-17.5) gm/dL Hct 26.5 L (39.0-53.0) % MCH 24.4 L (25.0-35.0) pg MCHC 29.9 L (31.0-37.0) g/dL RDW 19.0 H (11.5-15.5) % Sodium 135 L (137-145) mmol/L BUN 41 H (9-20) mg/dL Creatinine 1.33 H (0.66-1.25) mg/dL Glucose 117 H (74-99) mg/dL POC Glucose (mg/dL) (70-110) mg/dL Calcium 7.5 L (8.4-10.2) mg/dL
--- NOTE | 2022-04-20 11:47 | XR ---
EXAMINATION TYPE: XR chest 1V portable DATE OF EXAM: 04/20/2022 COMPARISON: 04/20/2022 HISTORY: Postthoracentesis TECHNIQUE: Single frontal view of the chest is obtained. FINDINGS: There is bilateral infiltrate and small effusion reduced from the prior exam with no sizab le pneumothorax postthoracentesis. Heart enlarged and there is postsurgical changes. IMPRESSION: 1. Bilateral infiltrate and small pleural effusion with no sizable pneumothorax postthoracentesis. 2. Correlate for mild central venous congestion improved from prior exam.
[2022-04-20 12:01] LABS: Glucose,Whole Blood 176 mg/dL (70-110)
[2022-04-20 12:08] LABS: Appearance,Urine Clear (Clear); Bilirubin,Urine Negative (Negative); Blood,Urine Negative (Negative); Color,Urine Yellow; Glucose,Urine (UA) Negative (Negative); Ketones,Urine Negative (Negative); Leukocyte Esterase,Urine Small (Negative); Mucus,Urine Rare /hpf; Nitrite,Urine Negative (Negative); PH, Urine 5.5 (5.0-8.0); Protein,Urine Negative (Negative); RBC,Urine 1 /hpf (0-5); Specific Gravity,Urine 1.021 (1.001-1.035); Squamous Epithelial Cell,Urine <1 /hpf (0-4); Urobilinogen,Urine <2.0 mg/dL (<2.0); WBC,Urine 9 /hpf (0-5)
--- NOTE | 2022-04-20 12:21 | P.DS ---
Providers Date of admission: 04/11/22 05:40 Expected date of discharge: 04/20/22 Attending physician: Tawanda Dorman Consults: 04/11/22 12:50 Consult Physician Routine Consulting Provider: Nicolas Rubio Consult Reason/Comments: Adzing And Boring Machine Helper Consult: post cardiac surgery Do you want consulting provider notified?: Yes Consult Physician Routine Consulting Provider: Inez Joseph Consult Reason/Comments: med mgmt Do you want consulting provider notified?: Yes Consult Physician Routine Consulting Provider: Gilberto Olguin Consult Reason/Comments: Chief Nursing Executive Consult: post cardiac surgery Do you want consulting provider notified?: Yes 04/15/22 08:46 Consult Physician Routine Consulting Provider: Marvin Duron Consult Reason/Comments: Evaluation for inpatient rehab Do you want consulting provider notified?: Yes Primary care physician: Chana Shoemaker [facility] Course: FINAL DIAGNOSIS: 1. Coronary artery disease 2. Hypertension 3. Hyperlipidemia, treated, cholesterol 157, LDL 85, triglycerides 169 4. Insulin-dependent diabetes mellitus, preoperative hemoglobin A1c 9.4% 5. Previous tobacco dependence 6. Mild COPD, preoperative FEV1 62% predicted 7. Asthma 8. Liver cirrhosis 9. Leonard's esophagus 10. PAD 11. Melanoma skin cancer 12. Chronic iron deficiency anemia 13. Essential tremors 14. Depression 15. Family history of coronary artery disease 16. Postoperative acute blood loss anemia, expected 17. Urinary retention requiring reinitiation of Woods catheter 18. Medical debility, generalized weakness 19. Hypoxemic respiratory failure requiring BiPAP at at bedtime 20. Left pleural effusion PRINCIPAL PROCEDURE: 1. Off-pump coronary artery bypass grafting 4 with left internal mammary artery to the left anterior descending artery, left radial artery graft to the first obtuse marginal artery, reverse saphenous vein graft to the first diagonal artery, reverse saphenous vein graft to the posterior lateral branch of the right coronary artery 2. Ligation of the left atrial appendage with a 35 mm AtriCure clip 3. Endovascular vein harvest of bilateral greater saphenous vein 4. Endovascular left radial artery harvest 5. Intraoperative transesophageal echocardiogram performed by anesthesia 6. Left-sided thoracentesis with removal of 300 mL fluid HISTORY OF PRESENT ILLNESS: This is a 77 showed gentleman who follows outpatient with Dr. Shoemaker for primary care and Dr. Campoverde for cardiology as well as Dr Ave Ghosh for liver cirrhosis. Recently the patient had been feeling tired with no energy, complaining of episodes of shortness of breath with activity and occasional chest pain which have been ongoing for approximately 2-3 months. He underwent transthoracic echocardiogram with cardiology demonstrating normal left ventricular size and function, EF 55-60%, mild mitral valve regurgitation, mild tricuspid regurgitation and increased pulmonary artery systolic pressure of 37 mmHg. He was recommended to undergo heart catheterization which demonstrated heavily calcified left anterior descending coronary artery with 90% stenosis proximally, 60-70% stenosis to the first septal engraver jewelry, 99% stenosis to the diagonal coronary artery, long area of stenosis 99% to the first obtuse marginal artery, 70-80% stenosis at the takeoff of the second obtuse marginal coronary artery, and 60-70% stenosis to the posterior lateral branch of the right coronary artery. Consultation was placed to Dr. Dorman from 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. He was recommended to undergo off-pump CABG. The usual perioperative course was discussed in detail with the patient and his family, all risks and benefits were explained, all questions were answered, and consent was obtained to proceed with surgery. The patient was discharged to home on maximal medical therapy to return as an outpatient for surgery after obtaining clearance from pulmonology and gastroenterology. HOSPITAL COURSE: The patient was brought to the hospital on 04/11/22, taken to the preoperative area, prepared in the usual fashion, and subsequently taken to the operating room where Dr. Dorman performed four-vessel off-pump CABG. Upon completion of surgery the patient was transferred to the cardiovascular intensive care unit where he was recovered and monitored hemodynamically. He was extubated, all lines, tubes, and drips were discontinued when appropriate. He did have a somewhat bailey postoperative course with hypoxemic respiratory failure requiring BiPAP, urinary retention requiring Woods catheter, and generalized weakness and debility. He remained on ICU as a stepdown patient until discharge. His oxygen was titrated down, he continued to work with physical and occupational therapy, he was tolerating oral diet, his pain was controlled, and he was ready to be discharged to subacute rehab on postoperative day #9. He received written and verbal instruction regarding his medications, activity restrictions, signs and symptoms requiring physician notification, and follow-up appointments. Patient Condition at Discharge: Stable Plan - Discharge Summary Discharge Rx Participant: Yes New Discharge Prescriptions: New Amiodarone [Cordarone] 200 mg PO BID tab Tamsulosin [Flomax] 0.4 mg PO PC-SUPPER cap Insulin Detemir (Levemir) [Levemir] 18 unit SQ HS each INSULIN ASPART (NovoLOG) [NovoLOG (formulary)] 9 unit SQ AC-TID each INSULIN ASPART (NovoLOG) [NovoLOG (formulary)] 0 unit SQ ACHS each Clopidogrel [Plavix] 75 mg PO DAILY tab Sennosides-Docusate Sodium [Senokot-S] 2 each PO HS tab Budesonide-Formot 160-4.5 Mcg [Symbicort 160-4.5 Mcg Inhaler] 1 puff INHALATION RT-BID each Spironolactone [Aldactone] 25 mg PO DAILY #30 tablet bisacodyL [Dulcolax] 10 mg RECTAL DAILY PRN suppositor PRN Reason: Constipation Ipratropium-Albuterol Nebulize [Duoneb 0.5 mg-3 mg/3 ml Soln] 3 ml INHALATION RT-Q2H PRN each PRN Reason: Shortness Of Breath Or Wheezing Ipratropium-Albuterol Nebulize [Duoneb 0.5 mg-3 mg/3 ml Soln] 3 ml INHALATION RT-QID each Ferrous Sulfate [Iron (65 MG Elemental)] 325 mg PO BID-W/MEALS tab Furosemide [Lasix] 20 mg PO DAILY tab Insulin Detemir (Levemir) [Levemir] 18 unit SQ DAILY@0700 each Metoprolol Tartrate [Lopressor] 25 mg PO BID tab Magnesium Hydroxide [Milk of Magnesia Concentrate] 2,400 mg PO BID PRN ml PRN Reason: Constipation guaiFENesin [Mucinex] 1,200 mg PO Q12HR tab Pantoprazole [Protonix] 40 mg PO AC-BID tab Acetaminophen Tab [Tylenol] 650 mg PO Q4HR PRN tab PRN Reason: Fever And/ Or Pain Continue Primidone [Mysoline] 250 mg PO BID DULoxetine HCL 60 mg PO DAILY Cholecalciferol [Vitamin D3 (25 Mcg = 1000 Iu)] 25 mcg PO DAILY Aspirin 81 mg PO HS Atorvastatin [Lipitor] 40 mg PO HS Ascorbic Acid [Vitamin C] 500 mg PO DAILY Discontinued atenoloL [Tenormin] 25 mg PO HS Omeprazole [PriLOSEC] 20 mg PO BID Loperamide [Imodium] 2 mg PO QID PRN PRN Reason: IBS Albuterol Sulfate [Proair Hfa] 2 puff INHALATION QID PRN PRN Reason: Shortness Of Breath Pregabalin [Lyrica] 300 mg PO HS Isosorbide Mononitrate [Isosorbide Mononitrate ER] 30 mg PO HS Insulin Aspart (For Pump) [NovoLOG (For Pump)] 0.01 unit SQ-PUMP CONTINUOUS Nitroglycerin Sl Tabs [Nitrostat] 0.4 mg SUBLINGUAL Q5M PRN #25 tab PRN Reason: Chest Pain Budesonide/Glycopyr/Formoterol [Breztri Aerosphere Inhaler] 1 puff INHALATION BID Discharge Medication List Primidone [Mysoline] 250 mg PO BID 09/06/17 [History] DULoxetine HCL 60 mg PO DAILY 04/21/21 [History] Aspirin 81 mg PO HS 03/22/22 [History] Ascorbic Acid [Vitamin C] 500 mg PO DAILY 04/01/22 [History] Atorvastatin [Lipitor] 40 mg PO HS 04/01/22 [History] Cholecalciferol [Vitamin D3 (25 Mcg = 1000 Iu)] 25 mcg PO DAILY 04/01/22 [H istory] Acetaminophen Tab [Tylenol] 650 mg PO Q4HR PRN tab 04/20/22 [Rx] Amiodarone [Cordarone] 200 mg PO BID tab 04/20/22 [Rx] Budesonide-Formot 160-4.5 Mcg [Symbicort 160-4.5 Mcg Inhaler] 1 puff INHALATION RT-BID each 04/20/22 [Rx] Clopidogrel [Plavix] 75 mg PO DAILY tab 04/20/22 [Rx] Ferrous Sulfate [Iron (65 MG Elemental)] 325 mg PO BID-W/MEALS tab 04/20/22 [Rx] Furosemide [Lasix] 20 mg PO DAILY tab 04/20/22 [Rx] INSULIN ASPART (NovoLOG) [NovoLOG (formulary)] 0 unit SQ ACHS each 04/20/22 [Rx] INSULIN ASPART (NovoLOG) [NovoLOG (formulary)] 9 unit SQ AC-TID each 04/20/22 [Rx] Insulin Detemir (Levemir) [Levemir] 18 unit SQ DAILY@0700 each 04/20/22 [Rx] Insulin Detemir (Levemir) [Levemir] 18 unit SQ HS each 04/20/22 [Rx] Ipratropium-Albuterol Nebulize [Duoneb 0.5 mg-3 mg/3 ml Soln] 3 ml INHALATION RT-Q2H PRN each 04/20/22 [Rx] Ipratropium-Albuterol Nebulize [Duoneb 0.5 mg-3 mg/3 ml Soln] 3 ml INHALATION RT-QID each 04/20/22 [Rx] Magnesium Hydroxide [Milk of Magnesia Concentrate] 2,400 mg PO BID PRN ml 04/20/22 [Rx] Metoprolol Tartrate [Lopressor] 25 mg PO BID tab 04/20/22 [Rx] Pantoprazole [Protonix] 40 mg PO AC-BID tab 04/20/22 [Rx] Sennosides-Docusate Sodium [Senokot-S] 2 each PO HS tab 04/20/22 [Rx] Spironolactone [Aldactone] 25 mg PO DAILY #30 tablet 04/20/22 [Rx] Tamsulosin [Flomax] 0.4 mg PO PC-SUPPER cap 04/20/22 [Rx] bisacodyL [Dulcolax] 10 mg RECTAL DAILY PRN suppositor 04/20/22 [Rx] guaiFENesin [Mucinex] 1,200 mg PO Q12HR tab 04/20/22 [Rx] Follow up Appointment(s)/Referral(s): Chana Shoemaker MD [Primary Care Provider] - 1 Week (Please make appointment upon discharge from rehab) Rehab [facility],Cardiac [NON-STAFF] - 4 Weeks (You will receive a phone call in approximately 4-6 weeks for evaluation for cardiac rehab) Tawanda Dorman MD [STAFF PHYSICIAN] - 05/12/22 12:00 pm Jesus Campoverde MD [STAFF PHYSICIAN] - 04/26/22 11:15 am Ambulatory/Diagnostic Orders: Complete Blood Count w/diff [LAB.AMB] Time Frame: 04/22/22, Location: None Selected Comprehensive Metabolic Panel [LAB.AMB] Time Frame: 04/22/22, Location: None Selected Activity/Diet/Wound Care/Special Instructions: DISCHARGE INSTRUCTIONS: 1. No driving for 4 weeks, or until physician gives their ok. 2. The patient should sleep in their own bed, no medical bed needed. 3. Stairs are not an issue. If the bedroom is upstairs, it is advised that the patient go up at night and down in the morning for the first week. Go slowly, using handrail and take 1 step at a time. 4. ALKA hose are to be worn for 30 days post surgery or until physician discontinues. 5. Heart hugger is to be worn 100% of the time until physician discontinues.(except when showering) 6. No lifting, pushing, or pulling more than 10 pounds for 12 weeks. The physician will advise of any restriction changes. 7. The patient is expected to continue the prescribed walking program. 8. Continue pain control per as needed orders. 9. Continue with incentive spirometry and splinting/heart hugger until otherwise directed by the physician. 10. Must shower daily using liquid antibacterial soap 11. Routine sternal incision care. No powders, lotions, ointments on incisions. No dressings are necessary on incisions unless they are draining. Dermabond tape is to remain on sternal incision until surgeon follow-up. 12. Please call surgeon/FIELD ARTILLERY FIRE CONTROL MAN for temp greater than 101 F or purulent drainage from incisions. 13. You should weigh yourself daily, record and bring log with you to follow up appointments. 14. Refills on prescriptions given at discharge need to be filled through zoo keeper/primary care physician. 15. A Red armband has been placed on the patient. It should be worn for 30 days post discharge from surgery and will be removed by the cardiac surgeons. If an ER visit is necessary, please make sure the number on the Red armband is called before going to ER. 16. You have been referred to and are expected to begin Cardiac Rehab in approximately 4-6 weeks. SUBACUTE REHAB TO PROVIDE: RN TO CONTINUE EDUCATION FROM ``ROAD TO A HEALTH HEART PATIENT EDUCATION MANUAL (GIVEN TO PATIENT IN THE HOSPITAL) MEDICATION RECONCILIATION WITH EDUCATION NEEDED EMPHASIZE IMPORTANCE OF WEARING BREAST SUPPORT/HEART HUGGER ENCOURAGE USE OF INCENTIVE SPIROMETER 10 X EVERY HOUR WHILE AWAKE ENCOURAGE UTILIZATION OF LOWER EXTREMITY COMPRESSION STOCKINGS/ALKA HOSE and ELEVATE LEGS ABOVE LEVEL OF HEART WHILE AT REST. ENCOURAGE AMBULATION 3-5x/day INCREASING TOLERATES, WHILE AVOIDING EXTREMES IN TEMPERATURE LABORATORY: CBC, CMP TO BE DRAWN ON THE THIRD DAY AT REHAB, (RAN STAT) FAX RESULTS TO [phone]. PARAMETERS TO REPORT TO SURGEON/[employer] FIRE CONTROL MAN: WEIGHT: NOTIFY MD OF WEIGHT GAIN OF 2 LBS IN 24 HOURS OR 5 LBS IN ONE WEEK HR: NOTIFY MD OF HR <55 BPM OR HR>100 BPM BP: NOTIFY MD IF BP <90/55 OR BP>140/100 O2 SAT: NOTIFY MD IF PO2<93% ON ROOM AIR Discharge Disposition: TRANSFER TO SNF/ECF
--- NOTE | 2022-04-20 16:19 | P.PN ---
Subjective Progress Note Date: 04/20/22 On 04/18/2022, the patient is being seen for a follow-up. The patient is currently postop day #7 vessel bypass surgery. The patient also has COPD, hypertension, hyperlipidemia, insulin-dependent diabetes mellitus, liver cirrhosis, bronchial asthma, Leonard's esophagus, peripheral vascular disease, history of melanoma and history of iron deficiency in addition to history of depression and history of tremors. His recovered has been essentially slow. After extubation, the patient required BiPAP for respiratory support and subsequently was transitioned to high flow oxygen and currently is on oxygen at 15 L high flow. Most recent chest x-ray shows cardiomegaly, atelectatic changes in the right lung base and small bilateral pleural effusions. Surgical 1 site is dry clean and intact. No airspace disease or consolidations noted on the most recent chest x-ray. The patient oxygen flow is at 15 L with a pulse ox of 95%. At the same time, the patient is receiving diuretics on a daily basis and he was switched to Lasix 20 mg by mouth daily. His fluid balance has been negative to liters on 04/16/2022 and since then she she has been in mild positive fluid balance. He has developed an acute kidney injury. Creatinine today is at 1.4 with a BUN of 43 and a sodium is at 135. Liver function tests are normal. The white cell count is at 11.9 with a hemoglobin of 7.4 platelet count of 170. Blood sugars have been under adequate control and the patient is currently on Levemir insulin 18 units at bedtime and 18 units in the morning and he is also taken a sliding scale coverage. For his still has a Woods catheter in place. Chest tubes have been removed to. Pulmonary case have been resumed. He is on aspirin and Plavix. Is also on amiodarone for prophylactic reasons. He is currently on oral iron. He is on metoprolol 25 mg by mouth twice a day as beta blockers and is also on statins. On 04/19/2022, the patient is being seen for a follow-up. On today's evaluation, the patient has been weaned down to 6 L of oxygen by nasal cannula. The patient using incentive spirometer and pulling approximately 1000. The patient has no specific complaints. No significant cough or sputum production. No chest tightness. No wheezing. He has multiple comorbidities as discussed earlier. The patient is postop day #8. Note that the patient underwent four- vessel bypass surgery. On yesterday's evaluation, the patient was quite hypoxic and his oxygenation improved. He is on bronchodilators. He is on Symbicort as maintenance for now. He is on Levemir insulin for blood sugar control at a dose of 18 units in the evening and 9 units of NovoLog 3 times a day. He is on Lasix orally 20 mg by mouth daily. IV fluids are currently at KVO. On his blood work, the white cell count at 16 with a hemoglobin of 7.7, his sodium level of 136, potassium is 4, chloride is 105, bicarb is 24, BUN is 47 and a creatinine is at 1.4. The chest x-ray from today shows small bilateral pleural effusion and patchy infiltration lung bases. Pneumonia is doubtful. Patient is awake and alert and moving all extremities and following commands without any limitation. On today's evaluation of 04/17/2022, I'm seeing the patient for a follow-up. The patient essentially the same condition. He remains on 6 L of O2 nasal cannula. The patient is quite weak and he is going to go to rehabilitation. Meanwhile, I reviewed the chest x-ray and I was concerned that the patient may have an underlying pleural effusion. Based on that, although some of the chest was done and the patient was found to have a sizable fluid on the left and the patient was given a thoracentesis with a total of 300 mL of fluid was aspirated from the left lung without any major difficulties. The patient for now is doing well. He is awaiting to be transferred to [facility]. He is on Lasix 20 mg by mouth daily. Is on Levemir insulin. Rest of the medications remain unchanged. The chest x-rays was done following the thoracentesis showed small pleural effusion without any signs of a pneumothorax and the patient continued to have a mild central pulmonary vessel congestion. Hemodynamically stable. Cardiac rhythm is sinus. Objective - Vital Signs Vital signs: Vital Signs Temp 99.2 F 04/20/22 08:00 Pulse 109 H 04/20/22 09:00 Resp 24 04/20/22 09:00 BP 113/64 04/20/22 09:00 Pulse Ox 94 L 04/20/22 09:00 FiO2 50 04/19/22 04:42 Intake & Output 04/19/22 04/20/22 04/20/22 18:59 06:59 18:59 Intake Total 850 450 250 Output Total 515 500 0 Balance 335 -50 250 Weight 111 kg Intake: Oral 850 450 250 Output: Urine 515 500 0 Other: Voiding Method Indwelling Catheter # Voids 1 ABP, PAP, CO, CI - Last Documented Arterial Blood Pressure 73/48 Pulmonary Artery Pressure 38/5 Cardiac Output 5.5 Cardiac Index 2.5 - Exam No acute distress, oriented 3. Pale. Currently on high flow oxygen 6 L/min HEENT examination is grossly unremarkable. Neck supple. Full range of motion. No adenopathy thyromegaly or neck vein dist ention. Cardiovascular examination reveals regular rhythm rate. S1-S2 normal. No S3 or S4. No discernible murmur noted. Heart sounds are distant. Lungs reveal scattered bibasilar crackles, and diffuse coarse rhonchi. His cough is wet and congested. No wheezes. Abdomen soft bowel sounds are heard. No masses or tenderness. Extremities are intact. No cyanosis or clubbing. Trace edema present. Skin is without rash or lesion. Neurologic examination is brief but nonfocal. - Labs CBC & Chem 7: 04/20/22 07:39 04/20/22 07:39 Labs: Abnormal Lab Results - Last 24 Hours (Table) 04/19/22 04/19/22 04/19/22 Range/Units 11:14 17:06 20:00 WBC (3.8-10.6) k/uL RBC (4.30-5.90) m/uL Hgb (13.0-17.5) gm/dL Hct (39.0-53.0) % MCH (25.0-35.0) pg MCHC (31.0-37.0) g/dL RDW (11.5-15.5) % Sodium (137-145) mmol/L BUN (9-20) mg/dL Creatinine (0.66-1.25) mg/dL Glucose (74-99) mg/dL POC Glucose (mg/dL) 194 H 143 H 189 H (70-110) mg/dL Calcium (8.4-10.2) mg/dL 04/20/22 04/20/22 04/20/22 Range/Units 06:42 07:39 07:39 WBC 19.9 H (3.8-10.6) k/uL RBC 3.24 L (4.30-5.90) m/uL Hgb 7.9 L (13.0-17.5) gm/dL Hct 26.5 L (39.0-53.0) % MCH 24.4 L (25.0-35.0) pg MCHC 29.9 L (31.0-37.0) g/dL RDW 19.0 H (11.5-15.5) % Sodium 135 L (137-145) mmol/L BUN 41 H (9-20) mg/dL Creatinine 1.33 H (0.66-1.25) mg/dL Glucose 117 H (74-99) mg/dL POC Glucose (mg/dL) 115 H (70-110) mg/dL Calcium 7.5 L (8.4-10.2) mg/dL Assessment and Plan Plan: Coronary artery disease status post coronary artery bypass grafting 4 with a SANTA to the LAD, left radial artery graft to the first obtuse marginal, saphenous vein graft to the first diagonal, saphenous vein graft to the posterior lateral branch of the RCA. Left atrial appendage clip. Postoperative day #9 Acute hypoxemic respiratory failure secondary to above. Patient is currently on oxygen at 6 L nasal cannula, and the patient continues to have small effusions and some limited atelectatic changes lung base bilaterally. Acute kidney injury, creatinine is down to 1.3 Postoperative anemia my expected outcome of surgery and the patient has a stable hemoglobin for now, 7.9 Hypertension, history of. Hyperlipidemia. History of melanoma of the left eyelid, resected. Leonard's esophagus. Parkinson tremors. Former smoker, quit 30 years ago. Chronic obstructive pulmonary disease. The patient has a preserved FEV1 of 88% of predicted Peripheral vascular disease History of liver cirrhosis History of skin melanoma History of chronic generalized anxiety disorder/depression Diabetes mellitus, with insulin dependence Degenerative arthritis Chronic back pain Iron deficiency anemia Peripheral neuropathy Plan Thoracentesis of the left lung was performed without any complications Continue diuretics Wean down FiO2 as tolerated to [facility] about 90% Creatinine remains stable at 1.3 and the rest of the electrolytes are stable Increase mobility Deep breathing Continue using incentive spirometer Transferred to [facility] liters today or within the next 24 hours
--- NOTE | 2022-04-20 16:55 | P.PN ---
Progress Note - Text Progress Note Date: 04/20/22 Patient was to be discharged to [facility] today. Upon EMS pickup for transfer patient had large bloody bowel movement. Discharge canceled. STAT CBC/PT/INR/PTT and STAT GI consult ordered. Patient does see Dr. Ghosh outpatient and did receive clearance before surgery. Amiodarone/ASA/Plavix sto pped. Family updated.
[2022-04-20 17:27] LABS: Glucose,Whole Blood 131 mg/dL (70-110)
[2022-04-20 17:37] LABS: Anisocytosis Slight; HCT 22.9 % (39.0-53.0); HGB 7.1 gm/dL (13.0-17.5); Hypochromasia Marked; MCH 25.1 pg (25.0-35.0); MCHC 30.9 g/dL (31.0-37.0); MCV 81.3 fL (80.0-100.0); Mean Platelet Volume 8.3; Microcytosis Slight; Platelet Count 332 k/uL (150-450); Poikilocytosis Slight; RBC 2.81 m/uL (4.30-5.90); RDW 19.3 % (11.5-15.5); WBC 22.9 k/uL (3.8-10.6)
[2022-04-20 17:50] LABS: Partial Thromboplastin Time 41.5 sec (22.0-30.0); Prothrombin Time 11.3 sec (9.0-12.0)
[2022-04-20] MEDS: TAMSULOSIN 0.4 MG CAP.ER.24H PO SCH (18:29)
[2022-04-20] MEDS: IPRATROPIUM-ALBUTEROL 3 ML NEB INHALATION PRN (18:35)
[2022-04-20 19:54] LABS: Glucose,Whole Blood 128 mg/dL (70-110)
[2022-04-20 20:00] LABS: ABG Base Excess -14.9 mmol/L; ABG HCO3 12 mmol/L (21-25); ABG Oxygen Saturation 94.1 % (94-97); ABG PCO2 27 mmHg (35-45); ABG PH 7.27 (7.35-7.45); ABG PO2 77 mmHg (83-108); ABG TCO2 13 mmol/L (19-24); Allen Test Performed? Yes
[2022-04-20] MEDS ORDERED: NOREPINEPHRIN 4 MG-0.9% NS PMX 4 MG/250 ML ML IV ONE (20:15)
[2022-04-20] MEDS ORDERED: SODIUM BICARB 8.4% 50 ML SYR (1 MEQ/ML) IV STA ×3 (20:17→23:24)
[2022-04-20] MEDS ORDERED: SODIUM CHLORIDE 0.9% 2,000 ML IV ONE (20:34)
[2022-04-20] MEDS: NOREPINEPHRINE 4 MG in SODIUM CHLORIDE 0.9% 250 ML IV SCH ×2 (20:40→20:45)
[2022-04-20] MEDS ORDERED: propofoL 100 ML IV ONE (20:45)
--- NOTE | 2022-04-20 21:22 | XR ---
EXAMINATION TYPE: XR chest 1V portable DATE OF EXAM: 04/20/2022 COMPARISON: Today HISTORY: Tube placement TECHNIQUE: Single view FINDINGS: The endotracheal tube is 3.5 cm from the dayan. There is nasogastric tube in the stomach. There is bilateral pleural effusions and pulmonary congestion. Heart is enlarged. There are chest cassia ds. There are sternal wires. IMPRESSION: Bilateral pleural effusions with basilar pulmonary infiltrates. Congestive heart failure is likely. Pulmonary congestion increased compared to exam this morning.
[2022-04-20 21:26] LABS: ABG Base Excess -12.5 mmol/L; ABG HCO3 15 mmol/L (21-25); ABG PCO2 39 mmHg (35-45); ABG PH 7.21 (7.35-7.45); ABG PO2 92 mmHg (83-108); ABG TCO2 17 mmol/L (19-24)
[2022-04-20 21:43] LABS: Anisocytosis Slight; Basophils # (A) 0.2 k/uL (0-0.2); Basophils % (A) 0 %; Eosinophils # (A) 0.1 k/uL (0-0.7); Eosinophils % (A) 0 %; HCT 24.3 % (39.0-53.0); HGB 7.4 gm/dL (13.0-17.5); Hypochromasia Marked; Lymphocytes # (A) 1.9 k/uL (1.0-4.8); Lymphocytes % (A) 5 %; MCHC 30.3 g/dL (31.0-37.0); MCV 85.8 fL (80.0-100.0); Mean Platelet Volume 7.9; Monocytes # (A) 1.5 k/uL (0-1.0); Monocytes % (A) 4 %; Neutrophils # (A) 32.9 k/uL (1.3-7.7); Neutrophils % (A) 89 %; Platelet Count 372 k/uL (150-450); Poikilocytosis Slight; RBC 2.84 m/uL (4.30-5.90); RDW 18.4 % (11.5-15.5); WBC 36.8 k/uL (3.8-10.6)
[2022-04-20 21:54] LABS: Albumin 2.4 g/dL (3.5-5.0); Potassium 5.2 mmol/L (3.5-5.1); Total Bilirubin 1.3 mg/dL (0.2-1.3); Total Protein 4.7 g/dL (6.3-8.2)
[2022-04-20] MEDS: ATORVASTATIN 40 MG TAB PO SCH (22:02)
[2022-04-20 22:16] LABS: Glucose,Whole Blood 117 mg/dL (70-110)
[2022-04-20] MEDS: CHLORHEXIDINE GLUCONATE 15 ML CUP MUCOUS MEM SCH (22:21)
[2022-04-20] MEDS: SENNOSIDES-DOCUSATE SODIUM 1 EACH TAB PO SCH (22:21)
[2022-04-20] MEDS ORDERED: CEFEPIME 1 GM in SODIUM CHLORIDE 0.9% 50 ML IVPB STA (23:50)
[2022-04-21] MEDS: metroNIDAZOLE-NS PMX 500 MG in SALINE 1 100ML.BAG IVPB SCH ×5 (00:39→23:10)
[2022-04-21] MEDS: DEXTROSE 5% IN WATER 1,000 ML with SODIUM BICARB (1 MEQ/ML) 150 ML IV SCH ×3 (00:40→22:14)
[2022-04-21] MEDS: IOPAMIDOL CONTRAST (ORAL USE) VIAL PO PRN ×2 (00:40→02:11)
[2022-04-21] MEDS: HEPARIN SODIUM,PORCINE/PF 5,000 UNIT/0.5 ML SYRINGE SQ SCH ×2 (00:48→08:20)
[2022-04-21] MEDS: NOREPINEPHRINE 4 MG in SODIUM CHLORIDE 0.9% 250 ML IV SCH ×3 (00:58→08:13)
[2022-04-21] MEDS: CEFEPIME 2 GM in SODIUM CHLORIDE 0.9% 100 ML IVPB SCH ×2 (02:11→14:52)
[2022-04-21 02:29] LABS: Glucose,Whole Blood 118 mg/dL (70-110)
--- NOTE | 2022-04-21 03:21 | CT ---
EXAMINATION TYPE: CT abdomen pelvis wo con DATE OF EXAM: 04/21/2022 COMPARISON: 01/05/2022 HISTORY: GI bleed CT DLP: 1780.4 mGycm Automated exposure control for dose reduction was used. Images obtained from the diaphragm to the floor the pelvis. There is some oral contrast material in t he stomach and small bowel and the large bowel. There is consolidation in atelectasis in both lower lobes. There are small bilateral pleural effusion s. Heart is top normal in size. There is small pericardial effusion. There is coronary artery calcifi cation. There is fatty infiltration of the liver. Spleen is intact. Stomach is intact. No pancreatic mass. Ga llbladder shows increased density that could be vicarious excretion. No retroperitoneal adenopathy. U rinary bladder is is almost empty. There is a Woods catheter in the bladder. Kidneys have normal size . No hydronephrosis. The ureters are not dilated. There is no evidence of a bowel obstruction. No mesenteric edema. No ascites or free air. No inguinal hernia. The lumbar vertebrae have normal alignment. No compression fracture. Posterior elements are intact. T here is multilevel vacuum disc. Bony pelvis is intact. The hip joints are intact. There is mild narro wing of the hip joint spaces. Sacroiliac joints are intact. IMPRESSION: There is extensive bilateral lower lobe pulmonary consolidation and atelectasis and small pleural eff usions which are new compared to old exam. Small pericardial effusion appears new compared to the exa m. Small hiatal hernia unchanged. Fatty infiltration of the liver unchanged. No acute abnormality in the abdomen pelvis.
[2022-04-21 04:51] LABS: Potassium 4.7 mmol/L (3.5-5.1); Total Bilirubin 1.7 mg/dL (0.2-1.3); Total Protein 4.1 g/dL (6.3-8.2)
[2022-04-21 04:57] LABS: Anisocytosis Slight; HCT 24.8 % (39.0-53.0); Hypochromasia Marked; MCH 27.3 pg (25.0-35.0); MCHC 32.5 g/dL (31.0-37.0); Mean Platelet Volume 8.4; Platelet Count 305 k/uL (150-450); Poikilocytosis Moderate; RBC 2.95 m/uL (4.30-5.90); RDW 18.4 % (11.5-15.5)
[2022-04-21 05:14] LABS: Calcium 6.1 mg/dL (8.4-10.2)
[2022-04-21 05:52] LABS: ABG Base Excess -2.7 mmol/L; ABG HCO3 21 mmol/L (21-25); ABG Oxygen Saturation 93.7 % (94-97); ABG PCO2 30 mmHg (35-45); ABG PH 7.45 (7.35-7.45); ABG PO2 64 mmHg (83-108); ABG TCO2 22 mmol/L (19-24); Allen Test Performed? Yes
[2022-04-21] MEDS: FERROUS SULFATE ORAL ELIXIR 300 MG/5 ML CUP OG-TUBE SCH ×2 (06:23→17:15)
[2022-04-21 06:33] LABS: Glucose,Whole Blood 169 mg/dL (70-110)
[2022-04-21] MEDS: INSULIN DETEMIR (LEVEMIR) 100 UNIT/ML SYR SQ SCH (06:45)
[2022-04-21] MEDS: INSULIN ASPART (NovoLOG) 100 UNIT/ML VIAL SQ SCH ×4 (06:51→14:49)
[2022-04-21 07:06] LABS: Band Neutrophils % 1 %; Lymphocytes # (M) 1.76 k/uL (1.0-4.8); Monocytes # (M) 1.05 k/uL (0-1.0); Myelocytes % 2 %; Neutrophils % (M) 91 %; Nucleated Red Blood Cells 1 /100 WBC (0-0); Total Cells Counted 200; WBC 35.1 k/uL (3.8-10.6)
[2022-04-21 07:08] LABS: Polychromasia Present; Toxic Granulation Present
--- NOTE | 2022-04-21 07:39 | XR ---
EXAMINATION TYPE: XR chest 1V portable DATE OF EXAM: 04/21/2022 COMPARISON: 04/20/2022 HISTORY: Tube placement TECHNIQUE: Single frontal view of the chest is obtained. FINDINGS: There is an ET tube 5.9 cm. There are persistent small to moderate bibasilar opacities obscuring the hemidiaphragms consistent wi th pneumonic infiltrate. There is been no change compared to previous. There are median sternotomy wi res. There is no pneumothorax. IMPRESSION: 1. ET tube 5.9 cm 2. no change in the by basilar infiltrates is described above.
[2022-04-21] MEDS: IPRATROPIUM-ALBUTEROL 3 ML NEB INHALATION SCH ×4 (08:03→19:53)
[2022-04-21] MEDS: SYMBICORT 160-4.5 MCG INHALER INHALATION SCH ×2 (08:03→19:53)
[2022-04-21] MEDS: PANTOPRAZOLE 40 MG TABLET PO SCH (09:10)
[2022-04-21] MEDS: guaiFENesin 600 MG TABLET.ER PO SCH (09:10)
[2022-04-21] MEDS: METOPROLOL TARTRATE 25 MG TAB PO SCH (09:22)
[2022-04-21 09:26] LABS: ABG Base Excess -5.3 mmol/L; ABG HCO3 20 mmol/L (21-25); ABG Oxygen Saturation 91.5 % (94-97); ABG PCO2 32 mmHg (35-45); ABG PO2 62 mmHg (83-108); ABG TCO2 21 mmol/L (19-24)
[2022-04-21 09:36] LABS: INR 1.3 (<1.2); Partial Thromboplastin Time 33.1 sec (22.0-30.0); Prothrombin Time 13.4 sec (9.0-12.0)
[2022-04-21] MEDS ORDERED: CALCIUM GLUCONATE IN NACL 2 GM in SALINE 1 100ML.BAG IVPB PRN (09:48)
[2022-04-21] MEDS ORDERED: CALCIUM GLUCONATE IN NACL 2 GM in SALINE 1 100ML.BAG IVPB ONE ×2 (09:50→16:42)
--- NOTE | 2022-04-21 10:19 | P.GSCN ---
History of Present Illness Consult date: 04/21/22 Reason for Consult: GI bleed History of present illness: 77-year-old male underwent 4 vessel CABG on 04/11. Patient has had a slow recovery. History of known cirrhosis. Patient was actually being picked up yesterday to go to rehab when he had a moderate sized bloody stool. He did have a few smaller episodes of rectal bleeding that was thought to be hemorrhoid related prior to that. Patient reportedly was only having discomfort in the sternal incision site. Hemoglobin 7.1. Patient has received 2 units and hemoglobin is now 8. He did have an additional smaller bloody stool last night. No melena. Patient unfortunately became more unstable and was placed on the ventilator yesterday evening around 8 PM. Patient has required IV pressors as well. Coags were checked given his history of cirrhosis and there were normal. He is on Plavix. Gastric tube was placed and reveals bilious fluid. No evidence of upper GI source of bleeding at this time. Patient has not had large volume stools since last night. CAT scan abdomen and pelvis was ordered after lactic acid was noted to be significantly elevated. CAT scan does not show any evidence of intra-abdominal inflammatory changes or free fluid. Patient is having short runs of V. tach this morning. Liver enzymes significantly elevated consistent with history of cirrhosis and global hypoperfusion. Review of Systems ROS unobtainable: due to endotracheal tube Past Medical History Past Medical History: Asthma, Cancer, Chest Pain / Angina, Diabetes Mellitus, GERD/Reflux, Hearing Disorder / Deafness, Hyperlipidemia, Hypertension, Liver Disease, Osteoarthritis (OA), Thyroid Disorder Additional Past Medical History / Comment(s): HX MELANOMA LEFT EYELID, HX IRON IFUSIONS(Last 2017), DALY'S ESOPHAGUS, PARKINSONS, TINNITUS IN LEFT EAR, hx. DARK BLOODY STOOLS-last few months ago, FATTY LIVER-possible cirrhosis per pt- sees [facility], LIMITED ROM RIGHT WRIST FROM SURGERY, hx Hyperthyroid. History of Any Multi-Drug Resistant Organisms: None Reported Past Surgical History: Appendectomy, Heart Catheterization, Hernia Repair, Orthopedic Surgery Additional Past Surgical History / Comment(s): COLONOSCOPY, MELANOMA LEFT EYELID WITH SKIN GRAFT, RIGHT INGUINAL HERNIA & UMBILICAL HERNIA REPAIRS, CATARACT RIGHT EYE, HIATAL HERNIA, RIGHT WRIST FUSION, left knee surgery. Past Anesthesia/Blood Transfusion Reactions: No Reported Reaction Past Psychological History: Anxiety, Depression Smoking Status: Former smoker Past Alcohol Use History: Occasional Additional Past Alcohol Use History / Comment(s): QUIT SMOKING ABOUT 1984, SMOKED < 1 PPD. SMOKED APPROX 20 YRS. Past Drug Use History: None Reported - Past Family History Sister(s) Family Medical History: Cancer Additional Family Medical History / Comment(s): Breast Cancer. Mother Family Medical History: Cancer, Hypertension Additional Family Medical History / Comment(s): COLON CANCER. Father Family Medical History: Coronary Artery Disease (CAD), Diabetes Mellitus, Myocardial Infarction ([place]) Additional Family Medical History / Comment(s): HEART PROBLEMS. Medications and Allergies Home Medications Medication Instructions Recorded Confirmed Type RX: Primidone [Mysoline] 250 mg PO BID 09/06/17 04/01/22 History RX: DULoxetine HCL 60 mg PO DAILY 04/21/21 04/01/22 History RX: Aspirin 81 mg PO HS 03/22/22 04/01/22 History RX: Ascorbic Acid [Vitamin C] 500 mg PO DAILY 04/01/22 04/01/22 History RX: Atorvastatin [Lipitor] 40 mg PO HS 04/01/22 04/01/22 History RX: Cholecalciferol [Vitamin D3 25 mcg PO DAILY 04/01/22 04/01/22 History (25 Mcg = 1000 Iu)] RX: Acetaminophen Tab [Tylenol] 650 mg PO Q4HR PRN tab 04/20/22 Rx RX: Amiodarone [Cordarone] 200 mg PO BID tab 04/20/22 Rx RX: Budesonide-Formot 160-4.5 Mcg 1 puff INHALATION RT-BID each 04/20/22 Rx [Symbicort 160-4.5 Mcg Inhaler] RX: Clopidogrel [Plavix] 75 mg PO DAILY tab 04/20/22 Rx RX: Ferrous Sulfate [Iron (65 MG 325 mg PO BID-W/MEALS tab 04/20/22 Rx Elemental)] RX: Furosemide [Lasix] 20 mg PO DAILY tab 04/20/22 Rx RX: INSULIN ASPART (NovoLOG) 0 unit SQ ACHS each 04/20/22 Rx [NovoLOG (formulary)] RX: INSULIN ASPART (NovoLOG) 9 unit SQ AC-TID each 04/20/22 Rx [NovoLOG (formulary)] RX: Insulin Detemir (Levemir) 18 unit SQ DAILY@0700 each 04/20/22 Rx [Levemir] RX: Insulin Detemir (Levemir) 18 unit SQ HS each 04/20/22 Rx [Levemir] RX: Ipratropium-Albuterol Nebulize 3 ml INHALATION RT-Q2H PRN each 04/20/22 Rx [Duoneb 0.5 mg-3 mg/3 ml Soln] RX: Ipratropium-Albuterol Nebulize 3 ml INHALATION RT-QID each 04/20/22 Rx [Duoneb 0.5 mg-3 mg/3 ml Soln] RX: Magnesium Hydroxide [Milk of 2,400 mg PO BID PRN ml 04/20/22 Rx Magnesia Concentrate] RX: Metoprolol Tartrate [Lopressor] 25 mg PO BID tab 04/20/22 Rx RX: Pantoprazole [Protonix] 40 mg PO AC-BID tab 04/20/22 Rx RX: Sennosides-Docusate Sodium 2 each PO HS tab 04/20/22 Rx [Senokot-S] RX: Tamsulosin [Flomax] 0.4 mg PO PC-SUPPER cap 04/20/22 Rx RX: bisacodyL [Dulcolax] 10 mg RECTAL DAILY PRN suppositor 04/20/22 Rx RX: guaiFENesin [Mucinex] 1,200 mg PO Q12HR tab 04/20/22 Rx Spironolactone [Aldactone] 25 mg PO DAILY #30 tablet 04/20/22 Rx Allergies Allergy/AdvReac Type Severity Reaction Status Date / Time Penicillins Allergy Rash/Hives Verified 04/01/22 14:51 Surgical - Exam Vital Signs Temp Pulse Resp BP Pulse Ox 97.6 F 69 20 136/84 97 04/11/22 05:55 04/11/22 05:55 04/11/22 05:55 04/11/22 05:55 04/11/22 05:55 Physical exam: General: Elderly white male on the ventilator, sedated HEENT: Normocephalic, sclerae nonicteric Abdomen: Mild distention, no appreciable tenderness Extremities: Mild lower extremity edema Neuro: On ventilator Results - Labs 04/21/22 04:07 04/21/22 04:07 Abnormal Lab Results - Last 24 Hours (Table) 04/20/22 04/20/22 04/20/22 Range/Units 11:38 12:00 17:03 WBC (3.8-10.6) k/uL RBC (4.30-5.90) m/uL Hgb (13.0-17.5) gm/dL Hct (39.0-53.0) % MCHC (31.0-37.0) g/dL RDW (11.5-15.5) % Neutrophils # (1.3-7.7) k/uL Neutrophils # (Manual) (1.3-7.7) k/uL Monocytes # (0-1.0) k/uL Monocytes # (Manual) (0-1.0) k/uL Myelocytes # (Manual) (0) k/uL Nucleated RBCs (0-0) /100 WBC PT (9.0-12.0) sec INR (<1.2) APTT 41.5 H (22.0-30.0) sec ABG pH (7.35-7.45) ABG pCO2 (35-45) mmHg ABG pO2 (83-108) mmHg ABG HCO3 (21-25) mmol/L ABG Total CO2 (19-24) mmol/L ABG O2 Saturation (94-97) % ABG Lactic Acid (0.5-1.6) mmol/L Sodium (137-145) mmol/L Potassium (3.5-5.1) mmol/L Carbon Dioxide (22-30) mmol/L BUN (9-20) mg/dL Creatinine (0.66-1.25) mg/dL Glucose (74-99) mg/dL POC Glucose (mg/dL) 176 H (70-110) mg/dL Plasma Lactic Acid Tashi (0.7-2.0) mmol/L Calcium (8.4-10.2) mg/dL Ionized Calcium Gage (4.5-5.3) mg/dL Total Bilirubin (0.2-1.3) mg/dL AST (17-59) U/L ALT (4-49) U/L Alkaline Phosphatase (38-126) U/L Total Protein (6.3-8.2) g/dL Albumin (3.5-5.0) g/dL Ur Leukocyte Esterase Small H (Negative) Urine WBC 9 H (0-5) /hpf Urine Mucus Rare H (None) /hpf Crossmatch 04/20/22 04/20/22 04/20/22 Range/Units 17:08 17:09 17:26 WBC 22.9 H (3.8-10.6) k/uL RBC 2.81 L (4.30-5.90) m/uL Hgb 7.1 L (13.0-17.5) gm/dL Hct 22.9 L (39.0-53.0) % MCHC 30.9 L (31.0-37.0) g/dL RDW 19.3 H (11.5-15.5) % Neutrophils # (1.3-7.7) k/uL Neutrophils # (Manual) (1.3-7.7) k/uL Monocytes # (0-1.0) k/uL Monocytes # (Manual) (0-1.0) k/uL Myelocytes # (Manual) (0) k/uL Nucleated RBCs (0-0) /100 WBC PT (9.0-12.0) sec INR (<1.2) APTT (22.0-30.0) sec ABG pH (7.35-7.45) ABG pCO2 (35-45) mmHg ABG pO2 (83-108) mmHg ABG HCO3 (21-25) mmol/L ABG Total CO2 (19-24) mmol/L ABG O2 Saturation (94-97) % ABG Lactic Acid (0.5-1.6) mmol/L Sodium (137-145) mmol/L Potassium (3.5-5.1) mmol/L Carbon Dioxide (22-30) mmol/L BUN (9-20) mg/dL Creatinine (0.66-1.25) mg/dL Glucose (74-99) mg/dL POC Glucose (mg/dL) 131 H (70-110) mg/dL Plasma Lactic Acid Tashi (0.7-2.0) mmol/L Calcium (8.4-10.2) mg/dL Ionized Calcium Gage (4.5-5.3) mg/dL Total Bilirubin (0.2-1.3) mg/dL AST (17-59) U/L ALT (4-49) U/L Alkaline Phosphatase (38-126) U/L Total Protein (6.3-8.2) g/dL Albumin (3.5-5.0) g/dL Ur Leukocyte Esterase (Negative) Urine WBC (0-5) /hpf Urine Mucus (None) /hpf Crossmatch See Detail 04/20/22 04/20/22 04/20/22 Range/Units 19:52 19:58 21:16 WBC (3.8-10.6) k/uL RBC (4.30-5.90) m/uL Hgb (13.0-17.5) gm/dL Hct (39.0-53.0) % MCHC (31.0-37.0) g/dL RDW (11.5-15.5) % Neutrophils # (1.3-7.7) k/uL Neutrophils # (Manual) (1.3-7.7) k/uL Monocytes # (0-1.0) k/uL Monocytes # (Manual) (0-1.0) k/uL Myelocytes # (Manual) (0) k/uL Nucleated RBCs (0-0) /100 WBC PT (9.0-12.0) sec INR (<1.2) APTT (22.0-30.0) sec ABG pH 7.27 L (7.35-7.45) ABG pCO2 27 L (35-45) mmHg ABG pO2 77 L (83-108) mmHg ABG HCO3 12 L (21-25) mmol/L ABG Total CO2 13 L (19-24) mmol/L ABG O2 Saturation (94-97) % ABG Lactic Acid (0.5-1.6) mmol/L Sodium 136 L (137-145) mmol/L Potassium 5.2 H (3.5-5.1) mmol/L Carbon Dioxide 14 L (22-30) mmol/L BUN 41 H (9-20) mg/dL Creatinine 1.97 H (0.66-1.25) mg/dL Glucose (74-99) mg/dL POC Glucose (mg/dL) 128 H (70-110) mg/dL Plasma Lactic Acid Tashi (0.7-2.0) mmol/L Calcium 7.0 L (8.4-10.2) mg/dL Ionized Calcium Gage (4.5-5.3) mg/dL Total Bilirubin (0.2-1.3) mg/dL AST 814 H (17-59) U/L ALT 263 H (4-49) U/L Alkaline Phosphatase 211 H (38-126) U/L Total Protein 4.7 L (6.3-8.2) g/dL Albumin 2.4 L (3.5-5.0) g/dL Ur Leukocyte Esterase (Negative) Urine WBC (0-5) /hpf Urine Mucus (None) /hpf Crossmatch 04/20/22 04/20/22 04/20/22 Range/Units 21:16 21:21 21:50 WBC 36.8 H (3.8-10.6) k/uL RBC 2.84 L (4.30-5.90) m/uL Hgb 7.4 L (13.0-17.5) gm/dL Hct 24.3 L (39.0-53.0) % MCHC 30.3 L (31.0-37.0) g/dL RDW 18.4 H (11.5-15.5) % Neutrophils # 32.9 H (1.3-7.7) k/uL Neutrophils # (Manual) (1.3-7.7) k/uL Monocytes # 1.5 H (0-1.0) k/uL Monocytes # (Manual) (0-1.0) k/uL Myelocytes # (Manual) (0) k/uL Nucleated RBCs (0-0) /100 WBC PT (9.0-12.0) sec INR (<1.2) APTT (22.0-30.0) sec ABG pH 7.21 L (7.35-7.45) ABG pCO2 (35-45) mmHg ABG pO2 (83-108) mmHg ABG HCO3 15 L (21-25) mmol/L ABG Total CO2 17 L (19-24) mmol/L ABG O2 Saturation (94-97) % ABG Lactic Acid 11.0 H* (0.5-1.6) mmol/L Sodium (137-145) mmol/L Potassium (3.5-5.1) mmol/L Carbon Dioxide (22-30) mmol/L BUN (9-20) mg/dL Creatinine (0.66-1.25) mg/dL Glucose (74-99) mg/dL POC Glucose (mg/dL) (70-110) mg/dL Plasma Lactic Acid Tashi (0.7-2.0) mmol/L Calcium (8.4-10.2) mg/dL Ionized Calcium Gage (4.5-5.3) mg/dL Total Bilirubin (0.2-1.3) mg/dL AST (17-59) U/L ALT (4-49) U/L Alkaline Phosphatase (38-126) U/L Total Protein (6.3-8.2) g/dL Albumin (3.5-5.0) g/dL Ur Leukocyte Esterase (Negative) Urine WBC (0-5) /hpf Urine Mucus (None) /hpf Crossmatch 04/20/22 04/21/22 04/21/22 Range/Units 22:15 02:26 04:07 WBC (3.8-10.6) k/uL RBC (4.30-5.90) m/uL Hgb (13.0-17.5) gm/dL Hct (39.0-53.0) % MCHC (31.0-37.0) g/dL RDW (11.5-15.5) % Neutrophils # (1.3-7.7) k/uL Neutrophils # (Manual) (1.3-7.7) k/uL Monocytes # (0-1.0) k/uL Monocytes # (Manual) (0-1.0) k/uL Myelocytes # (Manual) (0) k/uL Nucleated RBCs (0-0) /100 WBC PT (9.0-12.0) sec INR (<1.2) APTT (22.0-30.0) sec ABG pH (7.35-7.45) ABG pCO2 (35-45) mmHg ABG pO2 (83-108) mmHg ABG HCO3 (21-25) mmol/L ABG Total CO2 (19-24) mmol/L ABG O2 Saturation (94-97) % ABG Lactic Acid (0.5-1.6) mmol/L Sodium (137-145) mmol/L Potassium (3.5-5.1) mmol/L Carbon Dioxide (22-30) mmol/L BUN (9-20) mg/dL Creatinine (0.66-1.25) mg/dL Glucose (74-99) mg/dL POC Glucose (mg/dL) 117 H 118 H (70-110) mg/dL Plasma Lactic Acid Tashi 7.3 H* (0.7-2.0) mmol/L Calcium (8.4-10.2) mg/dL Ionized Calcium Gage (4.5-5.3) mg/dL Total Bilirubin (0.2-1.3) mg/dL AST (17-59) U/L ALT (4-49) U/L Alkaline Phosphatase (38-126) U/L Total Protein (6.3-8.2) g/dL Albumin (3.5-5.0) g/dL Ur Leukocyte Esterase (Negative) Urine WBC (0-5) /hpf Urine Mucus (None) /hpf Crossmatch 04/21/22 04/21/22 04/21/22 Range/Units 04:07 04:07 05:47 WBC 35.1 H (3.8-10.6) k/uL RBC 2.95 L (4.30-5.90) m/uL Hgb 8.0 L (13.0-17.5) gm/dL Hct 24.8 L (39.0-53.0) % MCHC (31.0-37.0) g/dL RDW 18.4 H (11.5-15.5) % Neutrophils # (1.3-7.7) k/uL Neutrophils # (Manual) 32.20 H (1.3-7.7) k/uL Monocytes # (0-1.0) k/uL Monocytes # (Manual) 1.05 H (0-1.0) k/uL Myelocytes # (Manual) 0.70 H (0) k/uL Nucleated RBCs 1 H (0-0) /100 WBC PT (9.0-12.0) sec INR (<1.2) APTT (22.0-30.0) sec ABG pH (7.35-7.45) ABG pCO2 30 L (35-45) mmHg ABG pO2 64 L (83-108) mmHg ABG HCO3 (21-25) mmol/L ABG Total CO2 (19-24) mmol/L ABG O2 Saturation 93.7 L (94-97) % ABG Lactic Acid (0.5-1.6) mmol/L Sodium 136 L (137-145) mmol/L Potassium (3.5-5.1) mmol/L Carbon Dioxide 21 L (22-30) mmol/L BUN 45 H (9-20) mg/dL Creatinine 1.68 H (0.66-1.25) mg/dL Glucose 135 H (74-99) mg/dL POC Glucose (mg/dL) (70-110) mg/dL Plasma Lactic Acid Tashi (0.7-2.0) mmol/L Calcium 6.1 L* (8.4-10.2) mg/dL Ionized Calcium Gage (4.5-5.3) mg/dL Total Bilirubin 1.7 H (0.2-1.3) mg/dL AST 3741 H (17-59) U/L ALT 1106 H (4-49) U/L Alkaline Phosphatase 187 H (38-126) U/L Total Protein 4.1 L (6.3-8.2) g/dL Albumin 2.0 L (3.5-5.0) g/dL Ur Leukocyte Esterase (Negative) Urine WBC (0-5) /hpf Urine Mucus (None) /hpf Crossmatch 04/21/22 04/21/22 04/21/22 Range/Units 06:32 09:00 09:00 WBC (3.8-10.6) k/uL RBC (4.30-5.90) m/uL Hgb (13.0-17.5) gm/dL Hct (39.0-53.0) % MCHC (31.0-37.0) g/dL RDW (11.5-15.5) % Neutrophils # (1.3-7.7) k/uL Neutrophils # (Manual) (1.3-7.7) k/uL Monocytes # (0-1.0) k/uL Monocytes # (Manual) (0-1.0) k/uL Myelocytes # (Manual) (0) k/uL Nucleated RBCs (0-0) /100 WBC PT 13.4 H (9.0-12.0) sec INR 1.3 H (<1.2) APTT 33.1 H (22.0-30.0) sec ABG pH (7.35-7.45) ABG pCO2 (35-45) mmHg ABG pO2 (83-108) mmHg ABG HCO3 (21-25) mmol/L ABG Total CO2 (19-24) mmol/L ABG O2 Saturation (94-97) % ABG Lactic Acid (0.5-1.6) mmol/L Sodium (137-145) mmol/L Potassium (3.5-5.1) mmol/L Carbon Dioxide (22-30) mmol/L BUN (9-20) mg/dL Creatinine (0.66-1.25) mg/dL Glucose (74-99) mg/dL POC Glucose (mg/dL) 169 H (70-110) mg/dL Plasma Lactic Acid Tashi (0.7-2.0) mmol/L Calcium (8.4-10.2) mg/dL Ionized Calcium Gage 3.7 L (4.5-5.3) mg/dL Total Bilirubin (0.2-1.3) mg/dL AST (17-59) U/L ALT (4-49) U/L Alkaline Phosphatase (38-126) U/L Total Protein (6.3-8.2) g/dL Albumin (3.5-5.0) g/dL Ur Leukocyte Esterase (Negative) Urine WBC (0-5) /hpf Urine Mucus (None) /hpf Crossmatch 04/21/22 Range/Units 09:21 WBC (3.8-10.6) k/uL RBC (4.30-5.90) m/uL Hgb (13.0-17.5) gm/dL Hct (39.0-53.0) % MCHC (31.0-37.0) g/dL RDW (11.5-15.5) % Neutrophils # (1.3-7.7) k/uL Neutrophils # (Manual) (1.3-7.7) k/uL Monocytes # (0-1.0) k/uL Monocytes # (Manual) (0-1.0) k/uL Myelocytes # (Manual) (0) k/uL Nucleated RBCs (0-0) /100 WBC PT (9.0-12.0) sec INR (<1.2) APTT (22.0-30.0) sec ABG pH (7.35-7.45) ABG pCO2 32 L (35-45) mmHg ABG pO2 62 L (83-108) mmHg ABG HCO3 20 L (21-25) mmol/L ABG Total CO2 (19-24) mmol/L ABG O2 Saturation 91.5 L (94-97) % ABG Lactic Acid (0.5-1.6) mmol/L Sodium (137-145) mmol/L Potassium (3.5-5.1) mmol/L Carbon Dioxide (22-30) mmol/L BUN (9-20) mg/dL Creatinine (0.66-1.25) mg/dL Glucose (74-99) mg/dL POC Glucose (mg/dL) (70-110) mg/dL Plasma Lactic Acid Tashi (0.7-2.0) mmol/L Calcium (8.4-10.2) mg/dL Ionized Calcium Gage (4.5-5.3) mg/dL Total Bilirubin (0.2-1.3) mg/dL AST (17-59) U/L ALT (4-49) U/L Alkaline Phosphatase (38-126) U/L Total Protein (6.3-8.2) g/dL Albumin (3.5-5.0) g/dL Ur Leukocyte Esterase (Negative) Urine WBC (0-5) /hpf Urine Mucus (None) /hpf Crossmatch Microbiology - Last 24 Hours (Table) 04/20/22 23:57 Sputum Culture - Preliminary Sputum Diabetes panel 04/20/22 04/21/22 Range/Units 21:16 04:07 Sodium 136 L 136 L (137-145) mmol/L Potassium 5.2 H 4.7 (3.5-5.1) mmol/L Chloride 102 102 (98-107) mmol/L Carbon Dioxide 14 L 21 L (22-30) mmol/L BUN 41 H 45 H (9-20) mg/dL Creatinine 1.97 H 1.68 H (0.66-1.25) mg/dL Glucose 76 135 H (74-99) mg/dL Calcium 7.0 L 6.1 L* (8.4-10.2) mg/dL AST 814 H 3741 H (17-59) U/L ALT 263 H 1106 H (4-49) U/L Alkaline Phosphatase 211 H 187 H (38-126) U/L Total Protein 4.7 L 4.1 L (6.3-8.2) g/dL Albumin 2.4 L 2.0 L (3.5-5.0) g/dL Calcium panel 04/20/22 04/21/22 04/21/22 Range/Units 21:16 04:07 09:00 Calcium 7.0 L 6.1 L* (8.4-10.2) mg/dL Ionized Calcium Gage 3.7 L (4.5-5.3) mg/dL Albumin 2.4 L 2.0 L (3.5-5.0) g/dL Pituitary panel 04/20/22 04/21/22 Range/Units 21:16 04:07 Sodium 136 L 136 L (137-145) mmol/L Potassium 5.2 H 4.7 (3.5-5.1) mmol/L Chloride 102 102 (98-107) mmol/L Carbon Dioxide 14 L 21 L (22-30) mmol/L BUN 41 H 45 H (9-20) mg/dL Creatinine 1.97 H 1.68 H (0.66-1.25) mg/dL Glucose 76 135 H (74-99) mg/dL Calcium 7.0 L 6.1 L* (8.4-10.2) mg/dL Adrenal panel 04/20/22 04/21/22 Range/Units 21:16 04:07 Sodium 136 L 136 L (137-145) mmol/L Potassium 5.2 H 4.7 (3.5-5.1) mmol/L Chloride 102 102 (98-107) mmol/L Carbon Dioxide 14 L 21 L (22-30) mmol/L BUN 41 H 45 H (9-20) mg/dL Creatinine 1.97 H 1.68 H (0.66-1.25) mg/dL Glucose 76 135 H (74-99) mg/dL Calcium 7.0 L 6.1 L* (8.4-10.2) mg/dL Total Bilirubin 1.3 1.7 H (0.2-1.3) mg/dL AST 814 H 3741 H (17-59) U/L ALT 263 H 1106 H (4-49) U/L Alkaline Phosphatase 211 H 187 H (38-126) U/L Total Protein 4.7 L 4.1 L (6.3-8.2) g/dL Albumin 2.4 L 2.0 L (3.5-5.0) g/dL Assessment and Plan Assessment: 77-year-old male with bloody stool yesterday and progressive leukocytosis and evidence of global hypoperfusion. CT angiogram ordered to evaluate the mesenteric vasculature however the patient's CAT scan does not suggest significant bowel ischemia. Patient's overall picture is concerning for ischemic bowel however patient was not complaining of abdominal pain prior to intubation last night. I'm not convinced the patient's instability is related to the bleeding itself given the hemoglobin of 8 and the lack of further bloody stools. Family apparently is discussing extent of care options currently. He is having short runs of V. tach. Overall the patient's prognosis appears quite poor. Will reevaluate after CT angiogram obtained.
--- NOTE | 2022-04-21 10:29 | P.PN ---
Subjective The patient is a 77-year-old male who is currently admitted to the hospital after undergoing elective CABG 4 on April 11. Postoperative complications include acute kidney injury, hypotension and anemia. 04/21 Patient seen and examined. Patient had been doing fairly well yesterday however then started to have bright red blood per rectum with clots and became hypotensive with 2 units packed red blood cells transfused however continues to be on norepinephrine and blood pressures in the 80s over 40s. Lactic acid elevated with shock liver and acute kidney injury. He had been receiving aspirin and Plavix which have been discontinued. Per nursing the clots have improved and no further bleeding. Repeat hemoglobin came back at 8.0 however had recently been transfused. White blood cell count had been increased over last few days. VITALS: Vitals reviewed GENERAL: Ill-appearing, Intubated and sedated NECK: Supple without JVD or thyromegaly. LUNGS: Breath sounds diminished to auscultation bilaterally. Respiration equal and unlabored. No wheezes or rhonchi HEART: Regular rate and rhythm without murmurs, rubs or gallops. S1 and S2 heard. EXTREMITIES: Normal range of motion, +2 pitting edema. No clubbing or cyanosis. Peripheral pulses intact and strong. IMPRESSION: Coronary artery disease, status post CABG 4 Hypertension Dyslipidemia Diabetes mellitus, hemoglobin A1c 9.4 History of smoking Acute GI bleed Shock likely related to GI bleed plus or minus sepsis PLAN: Aspirin and Plavix were discontinued. Transfuse platelets if continues have any bleeding. Continue supportive care with transfusion as needed. Continue with vasopressors. Patient having occasional runs of nonsustained VT and may consider amiodarone however avoid for now given elevated liver enzymes. Prognosis guarded. Objective - Vital Signs Vital signs: Vital Signs Temp 100.7 F H 04/21/22 08:00 Pulse 98 04/21/22 09:00 Resp 25 H 04/21/22 09:00 BP 130/46 04/21/22 09:00 Pulse Ox 91 L 04/21/22 09:00 FiO2 65 04/21/22 09:00 Intake & Output 04/20/22 04/21/22 04/21/22 18:59 06:59 18:59 Intake Total 290 3827.067 715.963 Output Total 940 340 80 Balance -650 3487.067 635.963 Weight 111.3 kg Intake: IV 40 2707 309 0.9NS Pressure Bag 27 9 Dextrose 5% in Water 1, 600 300 000 ml @ 100 mls/hr IV . [id number] BRIDGET with Sodium Bicarb (1 Meq/ml) 150 ml Rx#:[id number] Sodium Chloride 0.9% 1, 40 2080 000 ml @ 20 mls/hr IV . Q24H [facility] Rx#:[id number] Intake, IV Titration 810.067 406.963 Amount Cefepime 2 gm In Sodium 100 Chloride 0.9% 100 ml @ 25 mls/hr IVPB Q12H [facility] Rx# :[id number] Norepinephrine 4 mg In 448.006 316.831 Sodium Chloride 0.9% 250 ml @ 0.03 MCG/KG/MIN 12. 687 mls/hr IV .Q20H2M [facility] Rx#:[id number] metroNIDAZOLE-NS PMX 500 100 mg In Saline 1 100ml.bag @ 100 mls/hr IVPB Q6H [facility] Rx#:[id number] propofoL 1,000 mg In 162.061 90.132 Empty Bag 1 bag @ 15 MCG/ KG/MIN 9.99 mls/hr IV . Q10H1M [facility] Rx#:[id number] Oral 250 Blood Product 310 Rc As-1 Unit 0 [id number] Rc As-1 Unit 310 [id number] Output: Drainage 300 thoracentisis 300 Urine 640 340 80 Other: Voiding Method Indwelling Catheter Indwelling Catheter # Bowel Movements 2 ABP, PAP, CO, CI - Last Documented Arterial Blood Pressure 116/42 Pulmonary Artery Pressure 38/5 Cardiac Output 5.5 Cardiac Index 2.5 - Labs CBC & Chem 7: 04/21/22 04:07 04/21/22 04:07 Labs: Abnormal Lab Results - Last 24 Hours (Table) 04/20/22 04/20/22 04/20/22 Range/Units 11:38 12:00 17:03 WBC (3.8-10.6) k/uL RBC (4.30-5.90) m/uL Hgb (13.0-17.5) gm/dL Hct (39.0-53.0) % MCHC (31.0-37.0) g/dL RDW (11.5-15.5) % Neutrophils # (1.3-7.7) k/uL Neutrophils # (Manual) (1.3-7.7) k/uL Monocytes # (0-1.0) k/uL Monocytes # (Manual) (0-1.0) k/uL Myelocytes # (Manual) (0) k/uL Nucleated RBCs (0-0) /100 WBC PT (9.0-12.0) sec INR (<1.2) APTT 41.5 H (22.0-30.0) sec ABG pH (7.35-7.45) ABG pCO2 (35-45) mmHg ABG pO2 (83-108) mmHg ABG HCO3 (21-25) mmol/L ABG Total CO2 (19-24) mmol/L ABG O2 Saturation (94-97) % ABG Lactic Acid (0.5-1.6) mmol/L Sodium (137-145) mmol/L Potassium (3.5-5.1) mmol/L Carbon Dioxide (22-30) mmol/L BUN (9-20) mg/dL Creatinine (0.66-1.25) mg/dL Glucose (74-99) mg/dL POC Glucose (mg/dL) 176 H (70-110) mg/dL Plasma Lactic Acid Tashi (0.7-2.0) mmol/L Calcium (8.4-10.2) mg/dL Ionized Calcium Gage (4.5-5.3) mg/dL Total Bilirubin (0.2-1.3) mg/dL AST (17-59) U/L ALT (4-49) U/L Alkaline Phosphatase (38-126) U/L Total Protein (6.3-8.2) g/dL Albumin (3.5-5.0) g/dL Ur Leukocyte Esterase Small H (Negative) Urine WBC 9 H (0-5) /hpf Urine Mucus Rare H (None) /hpf Crossmatch 04/20/22 04/20/22 04/20/22 Range/Units 17:08 17:09 17:26 WBC 22.9 H (3.8-10.6) k/uL RBC 2.81 L (4.30-5.90) m/uL Hgb 7.1 L (13.0-17.5) gm/dL Hct 22.9 L (39.0-53.0) % MCHC 30.9 L (31.0-37.0) g/dL RDW 19.3 H (11.5-15.5) % Neutrophils # (1.3-7.7) k/uL Neutrophils # (Manual) (1.3-7.7) k/uL Monocytes # (0-1.0) k/uL Monocytes # (Manual) (0-1.0) k/uL Myelocytes # (Manual) (0) k/uL Nucleated RBCs (0-0) /100 WBC PT (9.0-12.0) sec INR (<1.2) APTT (22.0-30.0) sec ABG pH (7.35-7.45) ABG pCO2 (35-45) mmHg ABG pO2 (83-108) mmHg ABG HCO3 (21-25) mmol/L ABG Total CO2 (19-24) mmol/L ABG O2 Saturation (94-97) % ABG Lactic Acid (0.5-1.6) mmol/L Sodium (137-145) mmol/L Potassium (3.5-5.1) mmol/L Carbon Dioxide (22-30) mmol/L BUN (9-20) mg/dL Creatinine (0.66-1.25) mg/dL Glucose (74-99) mg/dL POC Glucose (mg/dL) 131 H (70-110) mg/dL Plasma Lactic Acid Tashi (0.7-2.0) mmol/L Calcium (8.4-10.2) mg/dL Ionized Calcium Gage (4.5-5.3) mg/dL Total Bilirubin (0.2-1.3) mg/dL AST (17-59) U/L ALT (4-49) U/L Alkaline Phosphatase (38-126) U/L Total Protein (6.3-8.2) g/dL Albumin (3.5-5.0) g/dL Ur Leukocyte Esterase (Negative) Urine WBC (0-5) /hpf Urine Mucus (None) /hpf Crossmatch See Detail 04/20/22 04/20/22 04/20/22 Range/Units 19:52 19:58 21:16 WBC (3.8-10.6) k/uL RBC (4.30-5.90) m/uL Hgb (13.0-17.5) gm/dL Hct (39.0-53.0) % MCHC (31.0-37.0) g/dL RDW (11.5-15.5) % Neutrophils # (1.3-7.7) k/uL Neutrophils # (Manual) (1.3-7.7) k/uL Monocytes # (0-1.0) k/uL Monocytes # (Manual) (0-1.0) k/uL Myelocytes # (Manual) (0) k/uL Nucleated RBCs (0-0) /100 WBC PT (9.0-12.0) sec INR (<1.2) APTT (22.0-30.0) sec ABG pH 7.27 L (7.35-7.45) ABG pCO2 27 L (35-45) mmHg ABG pO2 77 L (83-108) mmHg ABG HCO3 12 L (21-25) mmol/L ABG Total CO2 13 L (19-24) mmol/L ABG O2 Saturation (94-97) % ABG Lactic Acid (0.5-1.6) mmol/L Sodium 136 L (137-145) mmol/L Potassium 5.2 H (3.5-5.1) mmol/L Carbon Dioxide 14 L (22-30) mmol/L BUN 41 H (9-20) mg/dL Creatinine 1.97 H (0.66-1.25) mg/dL Glucose (74-99) mg/dL POC Glucose (mg/dL) 128 H (70-110) mg/dL Plasma Lactic Acid Tashi (0.7-2.0) mmol/L Calcium 7.0 L (8.4-10.2) mg/dL Ionized Calcium Gage (4.5-5.3) mg/dL Total Bilirubin (0.2-1.3) mg/dL AST 814 H (17-59) U/L ALT 263 H (4-49) U/L Alkaline Phosphatase 211 H (38-126) U/L Total Protein 4.7 L (6.3-8.2) g/dL Albumin 2.4 L (3.5-5.0) g/dL Ur Leukocyte Esterase (Negative) Urine WBC (0-5) /hpf Urine Mucus (None) /hpf Crossmatch 04/20/22 04/20/22 04/20/22 Range/Units 21:16 21:21 21:50 WBC 36.8 H (3.8-10.6) k/uL RBC 2.84 L (4.30-5.90) m/uL Hgb 7.4 L (13.0-17.5) gm/dL Hct 24.3 L (39.0-53.0) % MCHC 30.3 L (31.0-37.0) g/dL RDW 18.4 H (11.5-15.5) % Neutrophils # 32.9 H (1.3-7.7) k/uL Neutrophils # (Manual) (1.3-7.7) k/uL Monocytes # 1.5 H (0-1.0) k/uL Monocytes # (Manual) (0-1.0) k/uL Myelocytes # (Manual) (0) k/uL Nucleated RBCs (0-0) /100 WBC PT (9.0-12.0) sec INR (<1.2) APTT (22.0-30.0) sec ABG pH 7.21 L (7.35-7.45) ABG pCO2 (35-45) mmHg ABG pO2 (83-108) mmHg ABG HCO3 15 L (21-25) mmol/L ABG Total CO2 17 L (19-24) mmol/L ABG O2 Saturation (94-97) % ABG Lactic Acid 11.0 H* (0.5-1.6) mmol/L Sodium (137-145) mmol/L Potassium (3.5-5.1) mmol/L Carbon Dioxide (22-30) mmol/L BUN (9-20) mg/dL Creatinine (0.66-1.25) mg/dL Glucose (74-99) mg/dL POC Glucose (mg/dL) (70-110) mg/dL Plasma Lactic Acid Tashi (0.7-2.0) mmol/L Calcium (8.4-10.2) mg/dL Ionized Calcium Gage (4.5-5.3) mg/dL Total Bilirubin (0.2-1.3) mg/dL AST (17-59) U/L ALT (4-49) U/L Alkaline Phosphatase (38-126) U/L Total Protein (6.3-8.2) g/dL Albumin (3.5-5.0) g/dL Ur Leukocyte Esterase (Negative) Urine WBC (0-5) /hpf Urine Mucus (None) /hpf Crossmatch 04/20/22 04/21/22 04/21/22 Range/Units 22:15 02:26 04:07 WBC (3.8-10.6) k/uL RBC (4.30-5.90) m/uL Hgb (13.0-17.5) gm/dL Hct (39.0-53.0) % MCHC (31.0-37.0) g/dL RDW (11.5-15.5) % Neutrophils # (1.3-7.7) k/uL Neutrophils # (Manual) (1.3-7.7) k/uL Monocytes # (0-1.0) k/uL Monocytes # (Manual) (0-1.0) k/uL Myelocytes # (Manual) (0) k/uL Nucleated RBCs (0-0) /100 WBC PT (9.0-12.0) sec INR (<1.2) APTT (22.0-30.0) sec ABG pH (7.35-7.45) ABG pCO2 (35-45) mmHg ABG pO2 (83-108) mmHg ABG HCO3 (21-25) mmol/L ABG Total CO2 (19-24) mmol/L ABG O2 Saturation (94-97) % ABG Lactic Acid (0.5-1.6) mmol/L Sodium (137-145) mmol/L Potassium (3.5-5.1) mmol/L Carbon Dioxide (22-30) mmol/L BUN (9-20) mg/dL Creatinine (0.66-1.25) mg/dL Glucose (74-99) mg/dL POC Glucose (mg/dL) 117 H 118 H (70-110) mg/dL Plasma Lactic Acid Tashi 7.3 H* (0.7-2.0) mmol/L Calcium (8.4-10.2) mg/dL Ionized Calcium Gage (4.5-5.3) mg/dL Total Bilirubin (0.2-1.3) mg/dL AST (17-59) U/L ALT (4-49) U/L Alkaline Phosphatase (38-126) U/L Total Protein (6.3-8.2) g/dL Albumin (3.5-5.0) g/dL Ur Leukocyte Esterase (Negative) Urine WBC (0-5) /hpf Urine Mucus (None) /hpf Crossmatch 04/21/22 04/21/22 04/21/22 Range/Units 04:07 04:07 05:47 WBC 35.1 H (3.8-10.6) k/uL RBC 2.95 L (4.30-5.90) m/uL Hgb 8.0 L (13.0-17.5) gm/dL Hct 24.8 L (39.0-53.0) % MCHC (31.0-37.0) g/dL RDW 18.4 H (11.5-15.5) % Neutrophils # (1.3-7.7) k/uL Neutrophils # (Manual) 32.20 H (1.3-7.7) k/uL Monocytes # (0-1.0) k/uL Monocytes # (Manual) 1.05 H (0-1.0) k/uL Myelocytes # (Manual) 0.70 H (0) k/uL Nucleated RBCs 1 H (0-0) /100 WBC PT (9.0-12.0) sec INR (<1.2) APTT (22.0-30.0) sec ABG pH (7.35-7.45) ABG pCO2 30 L (35-45) mmHg ABG pO2 64 L (83-108) mmHg ABG HCO3 (21-25) mmol/L ABG Total CO2 (19-24) mmol/L ABG O2 Saturation 93.7 L (94-97) % ABG Lactic Acid (0.5-1.6) mmol/L Sodium 136 L (137-145) mmol/L Potassium (3.5-5.1) mmol/L Carbon Dioxide 21 L (22-30) mmol/L BUN 45 H (9-20) mg/dL Creatinine 1.68 H (0.66-1.25) mg/dL Glucose 135 H (74-99) mg/dL POC Glucose (mg/dL) (70-110) mg/dL Plasma Lactic Acid Tashi (0.7-2.0) mmol/L Calcium 6.1 L* (8.4-10.2) mg/dL Ionized Calcium Gage (4.5-5.3) mg/dL Total Bilirubin 1.7 H (0.2-1.3) mg/dL AST 3741 H (17-59) U/L ALT 1106 H (4-49) U/L Alkaline Phosphatase 187 H (38-126) U/L Total Protein 4.1 L (6.3-8.2) g/dL Albumin 2.0 L (3.5-5.0) g/dL Ur Leukocyte Esterase (Negative) Urine WBC (0-5) /hpf Urine Mucus (None) /hpf Crossmatch 04/21/22 04/21/22 04/21/22 Range/Units 06:32 09:00 09:00 WBC (3.8-10.6) k/uL RBC (4.30-5.90) m/uL Hgb (13.0-17.5) gm/dL Hct (39.0-53.0) % MCHC (31.0-37.0) g/dL RDW (11.5-15.5) % Neutrophils # (1.3-7.7) k/uL Neutrophils # (Manual) (1.3-7.7) k/uL Monocytes # (0-1.0) k/uL Monocytes # (Manual) (0-1.0) k/uL Myelocytes # (Manual) (0) k/uL Nucleated RBCs (0-0) /100 WBC PT 13.4 H (9.0-12.0) sec INR 1.3 H (<1.2) APTT 33.1 H (22.0-30.0) sec ABG pH (7.35-7.45) ABG pCO2 (35-45) mmHg ABG pO2 (83-108) mmHg ABG HCO3 (21-25) mmol/L ABG Total CO2 (19-24) mmol/L ABG O2 Saturation (94-97) % ABG Lactic Acid (0.5-1.6) mmol/L Sodium (137-145) mmol/L Potassium (3.5-5.1) mmol/L Carbon Dioxide (22-30) mmol/L BUN (9-20) mg/dL Creatinine (0.66-1.25) mg/dL Glucose (74-99) mg/dL POC Glucose (mg/dL) 169 H (70-110) mg/dL Plasma Lactic Acid Tashi (0.7-2.0) mmol/L Calcium (8.4-10.2) mg/dL Ionized Calcium Gage 3.7 L (4.5-5.3) mg/dL Total Bilirubin (0.2-1.3) mg/dL AST (17-59) U/L ALT (4-49) U/L Alkaline Phosphatase (38-126) U/L Total Protein (6.3-8.2) g/dL Albumin (3.5-5.0) g/dL Ur Leukocyte Esterase (Negative) Urine WBC (0-5) /hpf Urine Mucus (None) /hpf Crossmatch 04/21/22 Range/Units 09:21 WBC (3.8-10.6) k/uL RBC (4.30-5.90) m/uL Hgb (13.0-17.5) gm/dL Hct (39.0-53.0) % MCHC (31.0-37.0) g/dL RDW (11.5-15.5) % Neutrophils # (1.3-7.7) k/uL Neutrophils # (Manual) (1.3-7.7) k/uL Monocytes # (0-1.0) k/uL Monocytes # (Manual) (0-1.0) k/uL Myelocytes # (Manual) (0) k/uL Nucleated RBCs (0-0) /100 WBC PT (9.0-12.0) sec INR (<1.2) APTT (22.0-30.0) sec ABG pH (7.35-7.45) ABG pCO2 32 L (35-45) mmHg ABG pO2 62 L (83-108) mmHg ABG HCO3 20 L (21-25) mmol/L ABG Total CO2 (19-24) mmol/L ABG O2 Saturation 91.5 L (94-97) % ABG Lactic Acid (0.5-1.6) mmol/L Sodium (137-145) mmol/L Potassium (3.5-5.1) mmol/L Carbon Dioxide (22-30) mmol/L BUN (9-20) mg/dL Creatinine (0.66-1.25) mg/dL Glucose (74-99) mg/dL POC Glucose (mg/dL) (70-110) mg/dL Plasma Lactic Acid Tashi (0.7-2.0) mmol/L Calcium (8.4-10.2) mg/dL Ionized Calcium Gage (4.5-5.3) mg/dL Total Bilirubin (0.2-1.3) mg/dL AST (17-59) U/L ALT (4-49) U/L Alkaline Phosphatase (38-126) U/L Total Protein (6.3-8.2) g/dL Albumin (3.5-5.0) g/dL Ur Leukocyte Esterase (Negative) Urine WBC (0-5) /hpf Urine Mucus (None) /hpf Crossmatch Microbiology - Last 24 Hours (Table) 04/20/22 23:57 Sputum Culture - Preliminary Sputum
[2022-04-21] MEDS ORDERED: SODIUM CHLORIDE 0.9% 1,000 ML IV ONE (10:33)
[2022-04-21] MEDS: VASOPRESSIN 60 UNIT in SODIUM CHLORIDE 0.9% 150 ML IV SCH (10:39)
[2022-04-21] MEDS ORDERED: VANCOMYCIN 1,000 MG in SODIUM CHLORIDE 0.9% 250 ML IVPB STA (11:13)
[2022-04-21 11:43] LABS: Glucose,Whole Blood 145 mg/dL (70-110)
[2022-04-21 12:07] LABS: ABG Base Excess -12.2 mmol/L; ABG HCO3 16 mmol/L (21-25); ABG Oxygen Saturation 89.1 % (94-97); ABG PCO2 42 mmHg (35-45); ABG PO2 70 mmHg (83-108); ABG TCO2 17 mmol/L (19-24)
[2022-04-21 12:08] LABS: ABG PH 7.19 (7.35-7.45)
[2022-04-21] MEDS ORDERED: LIDOCAINE 2% SYG (PF) 100 MG/5 ML ONE (12:09)
[2022-04-21] MEDS ORDERED: CALCIUM CHLORIDE 100 MG/ML 10 ML SYRINGE ONE (12:09)
[2022-04-21] MEDS ORDERED: SODIUM BICARB 8.4% 50 ML SYR (1 MEQ/ML) ONE ×2 (12:09→12:14)
[2022-04-21] MEDS ORDERED: CISATRACURIUM 2 MG/ML 5 ML VIAL IV ONE ×4 (12:15→12:20)
[2022-04-21 12:17] LABS: Albumin 1.8 g/dL (3.5-5.0); Potassium 5.1 mmol/L (3.5-5.1); Total Bilirubin 1.3 mg/dL (0.2-1.3); Total Protein 3.7 g/dL (6.3-8.2)
[2022-04-21] MEDS ORDERED: ALBUMIN HUMAN 5% 250 ML IVPB ONE (12:19)
[2022-04-21] MEDS ORDERED: ALBUMIN HUMAN 5% 250 ML in EMPTY BAG 1 BAG IVPB ONE (12:21)
[2022-04-21] MEDS ORDERED: ALBUMIN HUMAN 5% 250 ML in EMPTY BAG 1 BAG IVPB STA (12:21)
[2022-04-21 12:22] LABS: ABG Base Excess 0.2 mmol/L; ABG HCO3 25 mmol/L (21-25); ABG Oxygen Saturation 95.8 % (94-97); ABG PCO2 43 mmHg (35-45); ABG PH 7.38 (7.35-7.45); ABG PO2 79 mmHg (83-108); ABG TCO2 27 mmol/L (19-24)
[2022-04-21 12:26] LABS: Anisocytosis Slight; HCT 22.2 % (39.0-53.0); Hypochromasia Marked; MCH 27.5 pg (25.0-35.0); MCHC 31.6 g/dL (31.0-37.0); MCV 86.9 fL (80.0-100.0); Mean Platelet Volume 8.5; Platelet Count 360 k/uL (150-450); Poikilocytosis Moderate; RBC 2.56 m/uL (4.30-5.90); RDW 18.4 % (11.5-15.5)
--- NOTE | 2022-04-21 12:27 | XR ---
EXAMINATION TYPE: XR chest 1V portable, XR chest 1V portable DATE OF EXAM: 04/21/2022 11:45 AM COMPARISON: Chest radiographs from 04/21/2022 TECHNIQUE: [id number] radiographs XR chest 1V portable, XR chest 1V portable Frontal views of the c hest. CLINICAL INDICATION:Male, 77 years old with history of central line placement; FINDINGS: Lungs/Pleura: There is no evidence of focal consolidation, or pneumothorax. Haziness in the lower eros ngs could represent layering pleural effusions. Pulmonary vascularity: Unremarkable. Heart/mediastinum: Cardiomediastinal silhouette is enlarged and stable. Left atrial appendage occlusi on device is present. Musculoskeletal: No acute osseous pathology. Midline sternotomy wires are noted. Lines/Tubes: Endotracheal tube with distal tip 5.8 cm above the dayan Nasogastric tube with its distal tip and side-port projecting under the diaphragm. Right internal jugular central venous catheter with distal tip extending towards the head. Subsequent radiograph and straight corrected position with distal tip at superior cavoatrial junction. IMPRESSION: Malposition of the right central venous catheter with tip extending towards the head. Subsequent radi ograph and straight corrected position with distal tip at superior cavoatrial junction. Endotracheal nasogastric tubes in appropriate position.
[2022-04-21] MEDS ORDERED: LIDOCAINE-D5W PMX 2G/250ML 2,000 MG in DEXTROSE/WATER 1 250ML.BAG IV SCH (12:30)
[2022-04-21] MEDS: NOREPINEPHRINE 32 MG in SODIUM CHLORIDE 0.9% 218 ML IV SCH (12:33)
--- NOTE | 2022-04-21 12:45 | P.PN ---
Subjective Progress Note Date: 04/21/22 Principal diagnosis: Coronary artery disease. Past medical history significant for hypertension, hyperlipidemia, insulin-dependent diabetes, previous tobacco dependence, mild COPD, asthma, liver cirrhosis, Leonard's esophagus, PAD, melanoma skin cancer, chronic iron deficiency anemia, essential tremors, depression, history of polyp to his transverse colon, chronic episodes of diarrhea with history of 80 pound weight loss in a 1 year duration status post colonoscopy in June 2019 which revealed scattered sigmoid diverticula cyst and internal hemorrhoids, and a family history of coronary artery disease POD #10 off-pump coronary artery bypass grafting 4 with left internal mammary artery to the left anterior descending artery, left radial artery graft to the first obtuse marginal artery, reverse saphenous vein graft to the first diagonal artery, reverse saphenous vein graft to the posterior lateral branch of the right coronary artery, ligation of the left atrial appendage with a 35 mm AtriCure clamp, endovascular vein harvest of bilateral greater saphenous vein and endovascular left radial artery harvest. Intraoperative transesophageal echocardiogram performed by anesthesia. Postoperative acute blood loss anemia, expected given hemodilution and preoperative anemia. Left-sided pleural effusion, status post day #1 left-sided thoracentesis performed by Dr. Wells. Acute hypoxic respiratory failure requiring reintubation and mechanical ventilator support. The patient was seen and examined at his bedside today 04/21/2022 in the intensive care unit. The patient was ready to be discharged to subacute rehab yesterday when he developed a bloody stool. A repeat hemoglobin was checked chest today 7.1 with hematocrit 22.9 and platelets 332. He was transfused for 2 units of packed red blood cells. Subsequently became hypotensive and was started on a norepinephrine drip which is currently running at 15.5 mcg/m and a D5W with 150 mEq of sodium bicarb running at 100 mL per hour. Patient also had a left-sided pleural effusion and underwent a left-sided thoracentesis yesterday by Dr. Wells with 300 mL of turbid colored fluid drained. The patient became more unstable and developed acute hypoxic respiratory distress requiring reintubation, he currently remains intubated with mechanical ventilator support, current mechanical ventilator settings are assist control 24, tidal volume 450, FiO2 65% and a PEEP of 5. Oxygen saturations are 93% on current mechanical ventilator settings. Arterial blood gas results this morning showed a pH of 7.45, pCO2 30, pO2 64, HCO3 21, base excess -2.7 and oxygen saturation is 93.7%. Laboratory results this potentially W CBC count of 35.5, hemoglobin 8.0, hematocrit 24.8, platelets 305, sodium 136, potassium 4.7, chloride 102, CO2 21, BUN 45, creatinine 1.68, glucose 135, calcium 6.1, ionized calcium 3.7, PT 13.4, INR 1.3, PTT 33.1, fibrinogen level 378, AST 3741, ALT 1106, alk phos 157, and albumin 2.0. Lactic acid level this morning is 7.3. Due to the bloody stool Dr. Dixon from general surgery was consulted and the patient underwent a computed tomography scan of his abdomen/pelvis which showed extensive bilateral lower lobe pulmonary consolidation, atelectasis, small pleural effusions, a small pericardial effusion, a small hiatal hernia and a fatty infiltration of the liver which is unchanged from a previous exam according to the report. No acute abnormality was seen in the abdomen or pelvis. Currently the patient remains sedated on propofol drip. OG tube is in place to low intermittent wall suction with bilious colored drainage. The patient's daughter is present at his bedside and has been updated on his care. Objective - Vital Signs Vital signs: Vital Signs Temp 100.7 F H 04/21/22 08:00 Pulse 98 04/21/22 09:00 Resp 25 H 04/21/22 09:00 BP 130/46 04/21/22 09:00 Pulse Ox 91 L 04/21/22 09:00 FiO2 65 04/21/22 09:00 Intake & Output 04/20/22 04/21/22 04/21/22 18:59 06:59 18:59 Intake Total 290 3827.067 531.944 Output Total 940 340 80 Balance -650 3487.067 451.944 Weight 111.3 kg Intake: IV 40 2707 309 0.9NS Pressure Bag 27 9 Dextrose 5% in Water 1, 600 300 000 ml @ 100 mls/hr IV . [id number] BRIDGET with Sodium Bicarb (1 Meq/ml) 150 ml Rx#:[id number] Sodium Chloride 0.9% 1, 40 2080 000 ml @ 20 mls/hr IV . Q24H BRIDGET Rx#:[id number] Intake, IV Titration 810.067 222.944 Amount Cefepime 2 gm In Sodium 100 Chloride 0.9% 100 ml @ 25 mls/hr IVPB Q12H BRIDGET Rx# :[id number] Norepinephrine 4 mg In 448.006 222.944 Sodium Chloride 0.9% 250 ml @ 0.03 MCG/KG/MIN 12. 687 mls/hr IV .Q20H2M BRIDGET Rx#:[id number] metroNIDAZOLE-NS PMX 500 100 mg In Saline 1 100ml.bag @ 100 mls/hr IVPB Q6H BRIDGET Rx#:[id number] propofoL 1,000 mg In 162.061 Empty Bag 1 bag @ 15 MCG/ KG/MIN 9.99 mls/hr IV . Q10H1M BRIDGET Rx#:[id number] Oral 250 Blood Product 310 Rc As-1 Unit 0 [id number] Rc As-1 Unit 310 [id number] Output: Drainage 300 thoracentisis 300 Urine 640 340 80 Other: Voiding Method Indwelling Catheter Indwelling Catheter # Bowel Movements 2 ABP, PAP, CO, CI - Last Documented Arterial Blood Pressure 116/42 Pulmonary Artery Pressure 38/5 Cardiac Output 5.5 Cardiac Index 2.5 - Exam CONSTITUTIONAL: Lying in bed in the intensive care unit. There is sedated on propofol drip, is intubated with mechanical ventilator support. RESPIRATORY: Lungs sounds diminished bilaterally. Respirations are symmetrical, nonlabored on mechanical ventilator support. Mechanical ventilator settings are assist control 24, tidal volume 450, FiO2 65% and a PEEP of 5, oxygen saturation is 93 percent on current mechanical ventilator settings. CARDIOVASCULAR: S1, S2 present. Regular rate and rhythm, sinus rhythm on telemetry, heart rate 98 bpm episodes of ventricular ectopy. Sternum stable. Palpable peripheral pulses bilaterally. Generalized 2+ edema present. Heart hugger in place. Antiembolism stockings, SCDs present. GASTROINTESTINAL: Abdomen soft, nondistended. Hypoactive bowel sounds present to his right lower quadrant, absent bowel sounds to his left and right upper quadrant and left lower quadrant. OG tube in place to low intermittent wall suction with bilious drainage. GENITOURINARY: Woods present draining clear, yellow urine. 305 mL of urine output in the last 8 hours. INTEGUMENTARY: Skin is warm and dry. Midline sternal incision is well approximated and covered with dry intact dressing. Bilateral lower extremity EVH sites well approximated without redness, left radial artery harvest sites clean, dry and intact. No redness or drainage present. NEUROLOGIC: Unable to accurately assess at this time as the patient remains sedated on propofol drip. MUSKULOSKELETAL: Unable to accurately assess at this time as the patient remains sedated on propofol drip. PSYCHIATRIC: Unable to accurately assess at this time as the patient remains sedated on propofol drip. - Allied health notes Allied health notes reviewed: nursing - Labs CBC & Chem 7: 04/21/22 11:50 04/21/22 11:50 Labs: Abnormal Lab Results - Last 24 Hours (Table) 04/20/22 04/20/22 04/20/22 Range/Units 11:38 12:00 17:03 WBC (3.8-10.6) k/uL RBC (4.30-5.90) m/uL Hgb (13.0-17.5) gm/dL Hct (39.0-53.0) % MCHC (31.0-37.0) g/dL RDW (11.5-15.5) % Neutrophils # (1.3-7.7) k/uL Neutrophils # (Manual) (1.3-7.7) k/uL Monocytes # (0-1.0) k/uL Monocytes # (Manual) (0-1.0) k/uL Myelocytes # (Manual) (0) k/uL Nucleated RBCs (0-0) /100 WBC PT (9.0-12.0) sec INR (<1.2) APTT 41.5 H (22.0-30.0) sec ABG pH (7.35-7.45) ABG pCO2 (35-45) mmHg ABG pO2 (83-108) mmHg ABG HCO3 (21-25) mmol/L ABG Total CO2 (19-24) mmol/L ABG O2 Saturation (94-97) % ABG Lactic Acid (0.5-1.6) mmol/L Sodium (137-145) mmol/L Potassium (3.5-5.1) mmol/L Carbon Dioxide (22-30) mmol/L BUN (9-20) mg/dL Creatinine (0.66-1.25) mg/dL Glucose (74-99) mg/dL POC Glucose (mg/dL) 176 H (70-110) mg/dL Plasma Lactic Acid Tashi (0.7-2.0) mmol/L Calcium (8.4-10.2) mg/dL Ionized Calcium Gage (4.5-5.3) mg/dL Total Bilirubin (0.2-1.3) mg/dL AST (17-59) U/L ALT (4-49) U/L Alkaline Phosphatase (38-126) U/L Total Protein (6.3-8.2) g/dL Albumin (3.5-5.0) g/dL Ur Leukocyte Esterase Small H (Negative) Urine WBC 9 H (0-5) /hpf Urine Mucus Rare H (None) /hpf Crossmatch 04/20/22 04/20/22 04/20/22 Range/Units 17:08 17:09 17:26 WBC 22.9 H (3.8-10.6) k/uL RBC 2.81 L (4.30-5.90) m/uL Hgb 7.1 L (13.0-17.5) gm/dL Hct 22.9 L (39.0-53.0) % MCHC 30.9 L (31.0-37.0) g/dL RDW 19.3 H (11.5-15.5) % Neutrophils # (1.3-7.7) k/uL Neutrophils # (Manual) (1.3-7.7) k/uL Monocytes # (0-1.0) k/uL Monocytes # (Manual) (0-1.0) k/uL Myelocytes # (Manual) (0) k/uL Nucleated RBCs (0-0) /100 WBC PT (9.0-12.0) sec INR (<1.2) APTT (22.0-30.0) sec ABG pH (7.35-7.45) ABG pCO2 (35-45) mmHg ABG pO2 (83-108) mmHg ABG HCO3 (21-25) mmol/L ABG Total CO2 (19-24) mmol/L ABG O2 Saturation (94-97) % ABG Lactic Acid (0.5-1.6) mmol/L Sodium (137-145) mmol/L Potassium (3.5-5.1) mmol/L Carbon Dioxide (22-30) mmol/L BUN (9-20) mg/dL Creatinine (0.66-1.25) mg/dL Glucose (74-99) mg/dL POC Glucose (mg/dL) 131 H (70-110) mg/dL Plasma Lactic Acid Tashi (0.7-2.0) mmol/L Calcium (8.4-10.2) mg/dL Ionized Calcium Gage (4.5-5.3) mg/dL Total Bilirubin (0.2-1.3) mg/dL AST (17-59) U/L ALT (4-49) U/L Alkaline Phosphatase (38-126) U/L Total Protein (6.3-8.2) g/dL Albumin (3.5-5.0) g/dL Ur Leukocyte Esterase (Negative) Urine WBC (0-5) /hpf Urine Mucus (None) /hpf Crossmatch See Detail 04/20/22 04/20/22 04/20/22 Range/Units 19:52 19:58 21:16 WBC (3.8-10.6) k/uL RBC (4.30-5.90) m/uL Hgb (13.0-17.5) gm/dL Hct (39.0-53.0) % MCHC (31.0-37.0) g/dL RDW (11.5-15.5) % Neutrophils # (1.3-7.7) k/uL Neutrophils # (Manual) (1.3-7.7) k/uL Monocytes # (0-1.0) k/uL Monocytes # (Manual) (0-1.0) k/uL Myelocytes # (Manual) (0) k/uL Nucleated RBCs (0-0) /100 WBC PT (9.0-12.0) sec INR (<1.2) APTT (22.0-30.0) sec ABG pH 7.27 L (7.35-7.45) ABG pCO2 27 L (35-45) mmHg ABG pO2 77 L (83-108) mmHg ABG HCO3 12 L (21-25) mmol/L ABG Total CO2 13 L (19-24) mmol/L ABG O2 Saturation (94-97) % ABG Lactic Acid (0.5-1.6) mmol/L Sodium 136 L (137-145) mmol/L Potassium 5.2 H (3.5-5.1) mmol/L Carbon Dioxide 14 L (22-30) mmol/L BUN 41 H (9-20) mg/dL Creatinine 1.97 H (0.66-1.25) mg/dL Glucose (74-99) mg/dL POC Glucose (mg/dL) 128 H (70-110) mg/dL Plasma Lactic Acid Tashi (0.7-2.0) mmol/L Calcium 7.0 L (8.4-10.2) mg/dL Ionized Calcium Gage (4.5-5.3) mg/dL Total Bilirubin (0.2-1.3) mg/dL AST 814 H (17-59) U/L ALT 263 H (4-49) U/L Alkaline Phosphatase 211 H (38-126) U/L Total Protein 4.7 L (6.3-8.2) g/dL Albumin 2.4 L (3.5-5.0) g/dL Ur Leukocyte Esterase (Negative) Urine WBC (0-5) /hpf Urine Mucus (None) /hpf Crossmatch 04/20/22 04/20/22 04/20/22 Range/Units 21:16 21:21 21:50 WBC 36.8 H (3.8-10.6) k/uL RBC 2.84 L (4.30-5.90) m/uL Hgb 7.4 L (13.0-17.5) gm/dL Hct 24.3 L (39.0-53.0) % MCHC 30.3 L (31.0-37.0) g/dL RDW 18.4 H (11.5-15.5) % Neutrophils # 32.9 H (1.3-7.7) k/uL Neutrophils # (Manual) (1.3-7.7) k/uL Monocytes # 1.5 H (0-1.0) k/uL Monocytes # (Manual) (0-1.0) k/uL Myelocytes # (Manual) (0) k/uL Nucleated RBCs (0-0) /100 WBC PT (9.0-12.0) sec INR (<1.2) APTT (22.0-30.0) sec ABG pH 7.21 L (7.35-7.45) ABG pCO2 (35-45) mmHg ABG pO2 (83-108) mmHg ABG HCO3 15 L (21-25) mmol/L ABG Total CO2 17 L (19-24) mmol/L ABG O2 Saturation (94-97) % ABG Lactic Acid 11.0 H* (0.5-1.6) mmol/L Sodium (137-145) mmol/L Potassium (3.5-5.1) mmol/L Carbon Dioxide (22-30) mmol/L BUN (9-20) mg/dL Creatinine (0.66-1.25) mg/dL Glucose (74-99) mg/dL POC Glucose (mg/dL) (70-110) mg/dL Plasma Lactic Acid Tashi (0.7-2.0) mmol/L Calcium (8.4-10.2) mg/dL Ionized Calcium Gage (4.5-5.3) mg/dL Total Bilirubin (0.2-1.3) mg/dL AST (17-59) U/L ALT (4-49) U/L Alkaline Phosphatase (38-126) U/L Total Protein (6.3-8.2) g/dL Albumin (3.5-5.0) g/dL Ur Leukocyte Esterase (Negative) Urine WBC (0-5) /hpf Urine Mucus (None) /hpf Crossmatch 04/20/22 04/21/22 04/21/22 Range/Units 22:15 02:26 04:07 WBC (3.8-10.6) k/uL RBC (4.30-5.90) m/uL Hgb (13.0-17.5) gm/dL Hct (39.0-53.0) % MCHC (31.0-37.0) g/dL RDW (11.5-15.5) % Neutrophils # (1.3-7.7) k/uL Neutrophils # (Manual) (1.3-7.7) k/uL Monocytes # (0-1.0) k/uL Monocytes # (Manual) (0-1.0) k/uL Myelocytes # (Manual) (0) k/uL Nucleated RBCs (0-0) /100 WBC PT (9.0-12.0) sec INR (<1.2) APTT (22.0-30.0) sec ABG pH (7.35-7.45) ABG pCO2 (35-45) mmHg ABG pO2 (83-108) mmHg ABG HCO3 (21-25) mmol/L ABG Total CO2 (19-24) mmol/L ABG O2 Saturation (94-97) % ABG Lactic Acid (0.5-1.6) mmol/L Sodium (137-145) mmol/L Potassium (3.5-5.1) mmol/L Carbon Dioxide (22-30) mmol/L BUN (9-20) mg/dL Creatinine (0.66-1.25) mg/dL Glucose (74-99) mg/dL POC Glucose (mg/dL) 117 H 118 H (70-110) mg/dL Plasma Lactic Acid Tashi 7.3 H* (0.7-2.0) mmol/L Calcium (8.4-10.2) mg/dL Ionized Calcium Gage (4.5-5.3) mg/dL Total Bilirubin (0.2-1.3) mg/dL AST (17-59) U/L ALT (4-49) U/L Alkaline Phosphatase (38-126) U/L Total Protein (6.3-8.2) g/dL Albumin (3.5-5.0) g/dL Ur Leukocyte Esterase (Negative) Urine WBC (0-5) /hpf Urine Mucus (None) /hpf Crossmatch 04/21/22 04/21/22 04/21/22 Range/Units 04:07 04:07 05:47 WBC 35.1 H (3.8-10.6) k/uL RBC 2.95 L (4.30-5.90) m/uL Hgb 8.0 L (13.0-17.5) gm/dL Hct 24.8 L (39.0-53.0) % MCHC (31.0-37.0) g/dL RDW 18.4 H (11.5-15.5) % Neutrophils # (1.3-7.7) k/uL Neutrophils # (Manual) 32.20 H (1.3-7.7) k/uL Monocytes # (0-1.0) k/uL Monocytes # (Manual) 1.05 H (0-1.0) k/uL Myelocytes # (Manual) 0.70 H (0) k/uL Nucleated RBCs 1 H (0-0) /100 WBC PT (9.0-12.0) sec INR (<1.2) APTT (22.0-30.0) sec ABG pH (7.35-7.45) ABG pCO2 30 L (35-45) mmHg ABG pO2 64 L (83-108) mmHg ABG HCO3 (21-25) mmol/L ABG Total CO2 (19-24) mmol/L ABG O2 Saturation 93.7 L (94-97) % ABG Lactic Acid (0.5-1.6) mmol/L Sodium 136 L (137-145) mmol/L Potassium (3.5-5.1) mmol/L Carbon Dioxide 21 L (22-30) mmol/L BUN 45 H (9-20) mg/dL Creatinine 1.68 H (0.66-1.25) mg/dL Glucose 135 H (74-99) mg/dL POC Glucose (mg/dL) (70-110) mg/dL Plasma Lactic Acid Tashi (0.7-2.0) mmol/L Calcium 6.1 L* (8.4-10.2) mg/dL Ionized Calcium Gage (4.5-5.3) mg/dL Total Bilirubin 1.7 H (0.2-1.3) mg/dL AST 3741 H (17-59) U/L ALT 1106 H (4-49) U/L Alkaline Phosphatase 187 H (38-126) U/L Total Protein 4.1 L (6.3-8.2) g/dL Albumin 2.0 L (3.5-5.0) g/dL Ur Leukocyte Esterase (Negative) Urine WBC (0-5) /hpf Urine Mucus (None) /hpf Crossmatch 04/21/22 04/21/22 04/21/22 Range/Units 06:32 09:00 09:00 WBC (3.8-10.6) k/uL RBC (4.30-5.90) m/uL Hgb (13.0-17.5) gm/dL Hct (39.0-53.0) % MCHC (31.0-37.0) g/dL RDW (11.5-15.5) % Neutrophils # (1.3-7.7) k/uL Neutrophils # (Manual) (1.3-7.7) k/uL Monocytes # (0-1.0) k/uL Monocytes # (Manual) (0-1.0) k/uL Myelocytes # (Manual) (0) k/uL Nucleated RBCs (0-0) /100 WBC PT 13.4 H (9.0-12.0) sec INR 1.3 H (<1.2) APTT 33.1 H (22.0-30.0) sec ABG pH (7.35-7.45) ABG pCO2 (35-45) mmHg ABG pO2 (83-108) mmHg ABG HCO3 (21-25) mmol/L ABG Total CO2 (19-24) mmol/L ABG O2 Saturation (94-97) % ABG Lactic Acid (0.5-1.6) mmol/L Sodium (137-145) mmol/L Potassium (3.5-5.1) mmol/L Carbon Dioxide (22-30) mmol/L BUN (9-20) mg/dL Creatinine (0.66-1.25) mg/dL Glucose (74-99) mg/dL POC Glucose (mg/dL) 169 H (70-110) mg/dL Plasma Lactic Acid Tashi (0.7-2.0) mmol/L Calcium (8.4-10.2) mg/dL Ionized Calcium Gage 3.7 L (4.5-5.3) mg/dL Total Bilirubin (0.2-1.3) mg/dL AST (17-59) U/L ALT (4-49) U/L Alkaline Phosphatase (38-126) U/L Total Protein (6.3-8.2) g/dL Albumin (3.5-5.0) g/dL Ur Leukocyte Esterase (Negative) Urine WBC (0-5) /hpf Urine Mucus (None) /hpf Crossmatch 04/21/22 Range/Units 09:21 WBC (3.8-10.6) k/uL RBC (4.30-5.90) m/uL Hgb (13.0-17.5) gm/dL Hct (39.0-53.0) % MCHC (31.0-37.0) g/dL RDW (11.5-15.5) % Neutrophils # (1.3-7.7) k/uL Neutrophils # (Manual) (1.3-7.7) k/uL Monocytes # (0-1.0) k/uL Monocytes # (Manual) (0-1.0) k/uL Myelocytes # (Manual) (0) k/uL Nucleated RBCs (0-0) /100 WBC PT (9.0-12.0) sec INR (<1.2) APTT (22.0-30.0) sec ABG pH (7.35-7.45) ABG pCO2 32 L (35-45) mmHg ABG pO2 62 L (83-108) mmHg ABG HCO3 20 L (21-25) mmol/L ABG Total CO2 (19-24) mmol/L ABG O2 Saturation 91.5 L (94-97) % ABG Lactic Acid (0.5-1.6) mmol/L Sodium (137-145) mmol/L Potassium (3.5-5.1) mmol/L Carbon Dioxide (22-30) mmol/L BUN (9-20) mg/dL Creatinine (0.66-1.25) mg/dL Glucose (74-99) mg/dL POC Glucose (mg/dL) (70-110) mg/dL Plasma Lactic Acid Tashi (0.7-2.0) mmol/L Calcium (8.4-10.2) mg/dL Ionized Calcium Gage (4.5-5.3) mg/dL Total Bilirubin (0.2-1.3) mg/dL AST (17-59) U/L ALT (4-49) U/L Alkaline Phosphatase (38-126) U/L Total Protein (6.3-8.2) g/dL Albumin (3.5-5.0) g/dL Ur Leukocyte Esterase (Negative) Urine WBC (0-5) /hpf Urine Mucus (None) /hpf Crossmatch - Imaging and Cardiology Chest x-ray: report reviewed, image reviewed CT scan - abdomen: report reviewed CT scan - pelvis: report reviewed Assessment and Plan Assessment: 1. Coronary artery disease, status post four-vessel off-pump CABG 2. History of hypertension, currently hypotensive on norepinephrine drip 3. Hyperlipidemia, treated, cholesterol 157, LDL 85, triglycerides 169 4. Insulin-dependent diabetes, preoperative hemoglobin A1c 9.4% 5. Previous tobacco dependence 6. Mild COPD, preoperative FEV1 62% of predicted 7. Asthma 8. Liver cirrhosis 9. Leonard's esophagus 10. PAD 11. Melanoma skin cancer 12. Chronic iron deficiency anemia 13. Essential tremors 14. Depression 15. Family history of coronary artery disease 16. Postoperative acute blood loss anemia, expected given hemodilution and preoperative anemia 17. Acute GI bleed, 2 episodes of bloody stools 18. Acute hypoxic respiratory failure requiring reintubation and mechanical ventilator support 19. Elevated liver enzymes, possibly secondary to hypotension Plan: 1. Continue to hold his aspirin, and Plavix due to the acute GI bleed. We will also hold his atorvastatin due to his elevated liver enzymes, we will reintroduce when liver enzymes have stabilized. 2. Discontinue Lasix and metoprolol. Wean norepinephrine and vasopressin as tolerated to keep his systolic blood pressure greater than or equal to 100 mmHg. 3. Mechanical ventilator management per Dr. Wells's recommendations. 4. CT scan of the abdomen/pelvis ordered by Dr. Dixon. General surgery consult noted and appreciated. 5. Increase activity, ambulate as tolerated. PT/OT/cardiac rehab following. 6. Will monitor daily labs and chest x-rays. Electrolyte replacement per protocol. 7. GI/DVT prophylaxis. 8. Insulin management per primary care service, patient needs tighter blood sugar control. Patient is diabetic, normally on insulin pump, and his is supposed to bring his insulin pump today. 9. Pain control with current medication regimen. 10. Continue Woods catheter for accurate I's and O's. Continue record strict inaccurate intake and outputs. Daily weights. 11. Strict accurate intake and output, daily weights 12. Propofol drip and sodium bicarbonate drip management per Dr. Wells's recommendations. 13. Continue supportive care. Dr. Ward met with the family and discussed care management. 14. Continue to monitor ABGs every 2 hours and when necessary. 15. Maintaining OG tube to low intermittent wall suction. 16. Blood cultures 2 sets, send stool for C. diff, sputum culture and urine culture results remain pending. 17. Monitor lactic acid, CBC and CMP every 4 hours. 18. If patient continues to have bloody stools may need platelet transfusion. 19. More recommendations to follow based on patient's clinical course. Time with Patient: Greater than 30
[2022-04-21] MEDS: LIDOCAINE-D5W PMX 2G/250ML 2,000 MG in DEXTROSE/WATER 1 250ML.BAG IV SCH (12:46)
--- NOTE | 2022-04-21 12:46 | P.PN ---
Subjective Progress Note Date: 04/21/22 Principal diagnosis: CAD 77-year-old male underwent 4 vessel CABG on 04/11. Patient was actually being picked up yesterday to go to rehab when he had a moderate sized bloody stool. He did have a few smaller episodes of rectal bleeding that was thought to be hemorrhoid related prior to that. Patient reportedly was only having discomfort in the sternal incision site. Patient has received 2 units and hemoglobin is now 8. He did have an additional smaller bloody stool last night. No melena. Patient became more unstable and was placed on the ventilator yesterday evening around 8 PM. Patient started on levo and vaso as well. Gastric tube was placed and reveals bilious fluid. Around noon time he was coded due to v.tach, was given few amps of bicarb, lidocaine. It lasted for few minutes, he is currently in SR with frequent runs of vtach. Lab from this am showing WBC 42,000, hemoglobin 7, hematocrit 22, platelet count 360, lactic acid was 7.3, went up to 11 after the code, creatinine 1.68. AST 3741, ALT 1106. Objective - Vital Signs Vital signs: Vital Signs Temp 100.7 F H 04/21/22 08:00 Pulse 101 H 04/21/22 11:18 Resp 25 H 04/21/22 11:18 BP 130/46 04/21/22 09:00 Pulse Ox 91 L 04/21/22 09:00 FiO2 100 04/21/22 10:52 Intake & Output 04/20/22 04/21/22 04/21/22 18:59 06:59 18:59 Intake Total 290 3827.067 754.871 Output Total 940 340 80 Balance -650 3487.067 674.871 Weight 111.3 kg Intake: IV 40 2707 309 0.9NS Pressure Bag 27 9 Dextrose 5% in Water 1, 600 300 000 ml @ 100 mls/hr IV . [id number] BRIDGET with Sodium Bicarb (1 Meq/ml) 150 ml Rx#:[id number] Sodium Chloride 0.9% 1, 40 2080 000 ml @ 20 mls/hr IV . Q24H BRIDGET Rx#:[id number] Intake, IV Titration 810.067 445.871 Amount Cefepime 2 gm In Sodium 100 Chloride 0.9% 100 ml @ 25 mls/hr IVPB Q12H BRIDGET Rx# :[id number] Norepinephrine 4 mg In 448.006 355.739 Sodium Chloride 0.9% 250 ml @ 0.03 MCG/KG/MIN 12. 687 mls/hr IV .Q20H2M BRIDGET Rx#:[id number] metroNIDAZOLE-NS PMX 500 100 mg In Saline 1 100ml.bag @ 100 mls/hr IVPB Q6H BRIDGET Rx#:[id number] propofoL 1,000 mg In 162.061 90.132 Empty Bag 1 bag @ 15 MCG/ KG/MIN 9.99 mls/hr IV . Q10H1M BRIDGET Rx#:[id number] Oral 250 Blood Product 310 Rc As-1 Unit 0 [id number] Rc As-1 Unit 310 [id number] Output: Drainage 300 thoracentisis 300 Urine 640 340 80 Other: Voiding Method Indwelling Catheter Indwelling Catheter # Bowel Movements 2 ABP, PAP, CO, CI - Last Documented Arterial Blood Pressure 116/42 Pulmonary Artery Pressure 38/5 Cardiac Output 5.5 Cardiac Index 2.5 - Exam Gen: Intubated, sedated, on mechanical ventilation HEENT: normocephalic, atraumatic, moist mucous membranes Neck: supple. No JVD. Resp: Mechanical breath sounds bilaterally CVS: S1 and S2 WNL, no murmurs, regular, tachycardic GI: soft, NTTP, slightly distended : no SPT, no CVAT, rubio catheter is present MSK: Bilateral 1+ pitting edema, no clubbing Neuro: Sedated - Labs CBC & Chem 7: 04/21/22 11:50 04/21/22 11:50 Labs: Abnormal Lab Results - Last 24 Hours (Table) 04/20/22 04/20/22 04/20/22 Range/Units 11:38 17:03 17:08 WBC 22.9 H (3.8-10.6) k/uL RBC 2.81 L (4.30-5.90) m/uL Hgb 7.1 L (13.0-17.5) gm/dL Hct 22.9 L (39.0-53.0) % MCHC 30.9 L (31.0-37.0) g/dL RDW 19.3 H (11.5-15.5) % Neutrophils # (1.3-7.7) k/uL Neutrophils # (Manual) (1.3-7.7) k/uL Monocytes # (0-1.0) k/uL Monocytes # (Manual) (0-1.0) k/uL Myelocytes # (Manual) (0) k/uL Nucleated RBCs (0-0) /100 WBC PT (9.0-12.0) sec INR (<1.2) APTT 41.5 H (22.0-30.0) sec ABG pH (7.35-7.45) ABG pCO2 (35-45) mmHg ABG pO2 (83-108) mmHg ABG HCO3 (21-25) mmol/L ABG Total CO2 (19-24) mmol/L ABG O2 Saturation (94-97) % ABG Lactic Acid (0.5-1.6) mmol/L Sodium (137-145) mmol/L Potassium (3.5-5.1) mmol/L Carbon Dioxide (22-30) mmol/L BUN (9-20) mg/dL Creatinine (0.66-1.25) mg/dL Glucose (74-99) mg/dL POC Glucose (mg/dL) (70-110) mg/dL Plasma Lactic Acid Tashi (0.7-2.0) mmol/L Calcium (8.4-10.2) mg/dL Ionized Calcium Gage (4.5-5.3) mg/dL Total Bilirubin (0.2-1.3) mg/dL AST (17-59) U/L ALT (4-49) U/L Alkaline Phosphatase (38-126) U/L Total Protein (6.3-8.2) g/dL Albumin (3.5-5.0) g/dL Ur Leukocyte Esterase Small H (Negative) Urine WBC 9 H (0-5) /hpf Urine Mucus Rare H (None) /hpf Crossmatch 04/20/22 04/20/22 04/20/22 Range/Units 17:09 17:26 19:52 WBC (3.8-10.6) k/uL RBC (4.30-5.90) m/uL Hgb (13.0-17.5) gm/dL Hct (39.0-53.0) % MCHC (31.0-37.0) g/dL RDW (11.5-15.5) % Neutrophils # (1.3-7.7) k/uL Neutrophils # (Manual) (1.3-7.7) k/uL Monocytes # (0-1.0) k/uL Monocytes # (Manual) (0-1.0) k/uL Myelocytes # (Manual) (0) k/uL Nucleated RBCs (0-0) /100 WBC PT (9.0-12.0) sec INR (<1.2) APTT (22.0-30.0) sec ABG pH (7.35-7.45) ABG pCO2 (35-45) mmHg ABG pO2 (83-108) mmHg ABG HCO3 (21-25) mmol/L ABG Total CO2 (19-24) mmol/L ABG O2 Saturation (94-97) % ABG Lactic Acid (0.5-1.6) mmol/L Sodium (137-145) mmol/L Potassium (3.5-5.1) mmol/L Carbon Dioxide (22-30) mmol/L BUN (9-20) mg/dL Creatinine (0.66-1.25) mg/dL Glucose (74-99) mg/dL POC Glucose (mg/dL) 131 H 128 H (70-110) mg/dL Plasma Lactic Acid Tashi (0.7-2.0) mmol/L Calcium (8.4-10.2) mg/dL Ionized Calcium Gage (4.5-5.3) mg/dL Total Bilirubin (0.2-1.3) mg/dL AST (17-59) U/L ALT (4-49) U/L Alkaline Phosphatase (38-126) U/L Total Protein (6.3-8.2) g/dL Albumin (3.5-5.0) g/dL Ur Leukocyte Esterase (Negative) Urine WBC (0-5) /hpf Urine Mucus (None) /hpf Crossmatch See Detail 04/20/22 04/20/22 04/20/22 Range/Units 19:58 21:16 21:16 WBC 36.8 H (3.8-10.6) k/uL RBC 2.84 L (4.30-5.90) m/uL Hgb 7.4 L (13.0-17.5) gm/dL Hct 24.3 L (39.0-53.0) % MCHC 30.3 L (31.0-37.0) g/dL RDW 18.4 H (11.5-15.5) % Neutrophils # 32.9 H (1.3-7.7) k/uL Neutrophils # (Manual) (1.3-7.7) k/uL Monocytes # 1.5 H (0-1.0) k/uL Monocytes # (Manual) (0-1.0) k/uL Myelocytes # (Manual) (0) k/uL Nucleated RBCs (0-0) /100 WBC PT (9.0-12.0) sec INR (<1.2) APTT (22.0-30.0) sec ABG pH 7.27 L (7.35-7.45) ABG pCO2 27 L (35-45) mmHg ABG pO2 77 L (83-108) mmHg ABG HCO3 12 L (21-25) mmol/L ABG Total CO2 13 L (19-24) mmol/L ABG O2 Saturation (94-97) % ABG Lactic Acid (0.5-1.6) mmol/L Sodium 136 L (137-145) mmol/L Potassium 5.2 H (3.5-5.1) mmol/L Carbon Dioxide 14 L (22-30) mmol/L BUN 41 H (9-20) mg/dL Creatinine 1.97 H (0.66-1.25) mg/dL Glucose (74-99) mg/dL POC Glucose (mg/dL) (70-110) mg/dL Plasma Lactic Acid Tashi (0.7-2.0) mmol/L Calcium 7.0 L (8.4-10.2) mg/dL Ionized Calcium Gage (4.5-5.3) mg/dL Total Bilirubin (0.2-1.3) mg/dL AST 814 H (17-59) U/L ALT 263 H (4-49) U/L Alkaline Phosphatase 211 H (38-126) U/L Total Protein 4.7 L (6.3-8.2) g/dL Albumin 2.4 L (3.5-5.0) g/dL Ur Leukocyte Esterase (Negative) Urine WBC (0-5) /hpf Urine Mucus (None) /hpf Crossmatch 04/20/22 04/20/22 04/20/22 Range/Units 21:21 21:50 22:15 WBC (3.8-10.6) k/uL RBC (4.30-5.90) m/uL Hgb (13.0-17.5) gm/dL Hct (39.0-53.0) % MCHC (31.0-37.0) g/dL RDW (11.5-15.5) % Neutrophils # (1.3-7.7) k/uL Neutrophils # (Manual) (1.3-7.7) k/uL Monocytes # (0-1.0) k/uL Monocytes # (Manual) (0-1.0) k/uL Myelocytes # (Manual) (0) k/uL Nucleated RBCs (0-0) /100 WBC PT (9.0-12.0) sec INR (<1.2) APTT (22.0-30.0) sec ABG pH 7.21 L (7.35-7.45) ABG pCO2 (35-45) mmHg ABG pO2 (83-108) mmHg ABG HCO3 15 L (21-25) mmol/L ABG Total CO2 17 L (19-24) mmol/L ABG O2 Saturation (94-97) % ABG Lactic Acid 11.0 H* (0.5-1.6) mmol/L Sodium (137-145) mmol/L Potassium (3.5-5.1) mmol/L Carbon Dioxide (22-30) mmol/L BUN (9-20) mg/dL Creatinine (0.66-1.25) mg/dL Glucose (74-99) mg/dL POC Glucose (mg/dL) 117 H (70-110) mg/dL Plasma Lactic Acid Tashi (0.7-2.0) mmol/L Calcium (8.4-10.2) mg/dL Ionized Calcium Gage (4.5-5.3) mg/dL Total Bilirubin (0.2-1.3) mg/dL AST (17-59) U/L ALT (4-49) U/L Alkaline Phosphatase (38-126) U/L Total Protein (6.3-8.2) g/dL Albumin (3.5-5.0) g/dL Ur Leukocyte Esterase (Negative) Urine WBC (0-5) /hpf Urine Mucus (None) /hpf Crossmatch 04/21/22 04/21/22 04/21/22 Range/Units 02:26 04:07 04:07 WBC (3.8-10.6) k/uL RBC (4.30-5.90) m/uL Hgb (13.0-17.5) gm/dL Hct (39.0-53.0) % MCHC (31.0-37.0) g/dL RDW (11.5-15.5) % Neutrophils # (1.3-7.7) k/uL Neutrophils # (Manual) (1.3-7.7) k/uL Monocytes # (0-1.0) k/uL Monocytes # (Manual) (0-1.0) k/uL Myelocytes # (Manual) (0) k/uL Nucleated RBCs (0-0) /100 WBC PT (9.0-12.0) sec INR (<1.2) APTT (22.0-30.0) sec ABG pH (7.35-7.45) ABG pCO2 (35-45) mmHg ABG pO2 (83-108) mmHg ABG HCO3 (21-25) mmol/L ABG Total CO2 (19-24) mmol/L ABG O2 Saturation (94-97) % ABG Lactic Acid (0.5-1.6) mmol/L Sodium 136 L (137-145) mmol/L Potassium (3.5-5.1) mmol/L Carbon Dioxide 21 L (22-30) mmol/L BUN 45 H (9-20) mg/dL Creatinine 1.68 H (0.66-1.25) mg/dL Glucose 135 H (74-99) mg/dL POC Glucose (mg/dL) 118 H (70-110) mg/dL Plasma Lactic Acid Tashi 7.3 H* (0.7-2.0) mmol/L Calcium 6.1 L* (8.4-10.2) mg/dL Ionized Calcium Gage (4.5-5.3) mg/dL Total Bilirubin 1.7 H (0.2-1.3) mg/dL AST 3741 H (17-59) U/L ALT 1106 H (4-49) U/L Alkaline Phosphatase 187 H (38-126) U/L Total Protein 4.1 L (6.3-8.2) g/dL Albumin 2.0 L (3.5-5.0) g/dL Ur Leukocyte Esterase (Negative) Urine WBC (0-5) /hpf Urine Mucus (None) /hpf Crossmatch 04/21/22 04/21/22 04/21/22 Range/Units 04:07 05:47 06:32 WBC 35.1 H (3.8-10.6) k/uL RBC 2.95 L (4.30-5.90) m/uL Hgb 8.0 L (13.0-17.5) gm/dL Hct 24.8 L (39.0-53.0) % MCHC (31.0-37.0) g/dL RDW 18.4 H (11.5-15.5) % Neutrophils # (1.3-7.7) k/uL Neutrophils # (Manual) 32.20 H (1.3-7.7) k/uL Monocytes # (0-1.0) k/uL Monocytes # (Manual) 1.05 H (0-1.0) k/uL Myelocytes # (Manual) 0.70 H (0) k/uL Nucleated RBCs 1 H (0-0) /100 WBC PT (9.0-12.0) sec INR (<1.2) APTT (22.0-30.0) sec ABG pH (7.35-7.45) ABG pCO2 30 L (35-45) mmHg ABG pO2 64 L (83-108) mmHg ABG HCO3 (21-25) mmol/L ABG Total CO2 (19-24) mmol/L ABG O2 Saturation 93.7 L (94-97) % ABG Lactic Acid (0.5-1.6) mmol/L Sodium (137-145) mmol/L Potassium (3.5-5.1) mmol/L Carbon Dioxide (22-30) mmol/L BUN (9-20) mg/dL Creatinine (0.66-1.25) mg/dL Glucose (74-99) mg/dL POC Glucose (mg/dL) 169 H (70-110) mg/dL Plasma Lactic Acid Tashi (0.7-2.0) mmol/L Calcium (8.4-10.2) mg/dL Ionized Calcium Gage (4.5-5.3) mg/dL Total Bilirubin (0.2-1.3) mg/dL AST (17-59) U/L ALT (4-49) U/L Alkaline Phosphatase (38-126) U/L Total Protein (6.3-8.2) g/dL Albumin (3.5-5.0) g/dL Ur Leukocyte Esterase (Negative) Urine WBC (0-5) /hpf Urine Mucus (None) /hpf Crossmatch 04/21/22 04/21/22 04/21/22 Range/Units 09:00 09:00 09:21 WBC (3.8-10.6) k/uL RBC (4.30-5.90) m/uL Hgb (13.0-17.5) gm/dL Hct (39.0-53.0) % MCHC (31.0-37.0) g/dL RDW (11.5-15.5) % Neutrophils # (1.3-7.7) k/uL Neutrophils # (Manual) (1.3-7.7) k/uL Monocytes # (0-1.0) k/uL Monocytes # (Manual) (0-1.0) k/uL Myelocytes # (Manual) (0) k/uL Nucleated RBCs (0-0) /100 WBC PT 13.4 H (9.0-12.0) sec INR 1.3 H (<1.2) APTT 33.1 H (22.0-30.0) sec ABG pH (7.35-7.45) ABG pCO2 32 L (35-45) mmHg ABG pO2 62 L (83-108) mmHg ABG HCO3 20 L (21-25) mmol/L ABG Total CO2 (19-24) mmol/L ABG O2 Saturation 91.5 L (94-97) % ABG Lactic Acid (0.5-1.6) mmol/L Sodium (137-145) mmol/L Potassium (3.5-5.1) mmol/L Carbon Dioxide (22-30) mmol/L BUN (9-20) mg/dL Creatinine (0.66-1.25) mg/dL Glucose (74-99) mg/dL POC Glucose (mg/dL) (70-110) mg/dL Plasma Lactic Acid Tashi (0.7-2.0) mmol/L Calcium (8.4-10.2) mg/dL Ionized Calcium Gage 3.7 L (4.5-5.3) mg/dL Total Bilirubin (0.2-1.3) mg/dL AST (17-59) U/L ALT (4-49) U/L Alkaline Phosphatase (38-126) U/L Total Protein (6.3-8.2) g/dL Albumin (3.5-5.0) g/dL Ur Leukocyte Esterase (Negative) Urine WBC (0-5) /hpf Urine Mucus (None) /hpf Crossmatch 04/21/22 Range/Units 11:41 WBC (3.8-10.6) k/uL RBC (4.30-5.90) m/uL Hgb (13.0-17.5) gm/dL Hct (39.0-53.0) % MCHC (31.0-37.0) g/dL RDW (11.5-15.5) % Neutrophils # (1.3-7.7) k/uL Neutrophils # (Manual) (1.3-7.7) k/uL Monocytes # (0-1.0) k/uL Monocytes # (Manual) (0-1.0) k/uL Myelocytes # (Manual) (0) k/uL Nucleated RBCs (0-0) /100 WBC PT (9.0-12.0) sec INR (<1.2) APTT (22.0-30.0) sec ABG pH (7.35-7.45) ABG pCO2 (35-45) mmHg ABG pO2 (83-108) mmHg ABG HCO3 (21-25) mmol/L ABG Total CO2 (19-24) mmol/L ABG O2 Saturation (94-97) % ABG Lactic Acid (0.5-1.6) mmol/L Sodium (137-145) mmol/L Potassium (3.5-5.1) mmol/L Carbon Dioxide (22-30) mmol/L BUN (9-20) mg/dL Creatinine (0.66-1.25) mg/dL Glucose (74-99) mg/dL POC Glucose (mg/dL) 145 H (70-110) mg/dL Plasma Lactic Acid Tashi (0.7-2.0) mmol/L Calcium (8.4-10.2) mg/dL Ionized Calcium Gage (4.5-5.3) mg/dL Total Bilirubin (0.2-1.3) mg/dL AST (17-59) U/L ALT (4-49) U/L Alkaline Phosphatase (38-126) U/L Total Protein (6.3-8.2) g/dL Albumin (3.5-5.0) g/dL Ur Leukocyte Esterase (Negative) Urine WBC (0-5) /hpf Urine Mucus (None) /hpf Crossmatch Microbiology - Last 24 Hours (Table) 04/20/22 23:57 Sputum Culture - Preliminary Sputum Assessment and Plan Plan: Severe multivessel coronary artery disease Status post CABG 4 -Post CABG 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 -Aspirin and Plavix held sec to bleeding -Continue statin V.tach -CT surgery advising lidocaine gtt, will start Shock, with organ dysfunction, could be sec to ischemic bowel vs. cardiac vs. sec to GI bleeding -Started on broad spectrum abx, cefepime and flagyl. -Bicarb gtt -Monitor lactic acid -Continue to monitor hgb Insulin-dependent diabetes, on insulin pump -Hold all s.q insulin and start insulin gtt. Postop anemia, with complicated GI bleeding -Was given 2 units, will continue to monitor hgb Leukocytosis Could be sec to ischemic bowel, vs shock Continue to monitor On abx as above. Acute kidney injury, Worse, avoid nephrotoxic meds and continue to monitor. Thrombocytopenia, resolved Chronic: History of cirrhosis History of Leonard's esophagus History of iron deficiency anemia Asthma Family updated.
[2022-04-21] MEDS ORDERED: INSULIN REGULAR 100 UNIT/ML VIAL (IV) IV ONE (13:02)
[2022-04-21] MEDS: CHOLECALCIFEROL 25 MCG (1000 IU) TABLET PO SCH (13:26)
[2022-04-21] MEDS: CHLORHEXIDINE GLUCONATE 15 ML CUP MUCOUS MEM SCH ×2 (13:26→21:00)
[2022-04-21] MEDS: ASCORBIC ACID 500 MG TAB PO SCH (13:26)
[2022-04-21] MEDS: PRIMIDONE 250 MG TAB PO SCH ×2 (13:26→21:00)
[2022-04-21] MEDS: CISATRACURIUM 200 MG in SODIUM CHLORIDE 0.9% 180 ML IV SCH (13:28)
[2022-04-21 14:22] LABS: Lymphocytes # (M) 2.45 k/uL (1.0-4.8); Monocytes # (M) 1.23 k/uL (0-1.0); Neutrophils # (M) 37.63 k/uL (1.3-7.7); Neutrophils % (M) 92 %; Nucleated Red Blood Cells 3 /100 WBC (0-0); Total Cells Counted 200; WBC 40.9 k/uL (3.8-10.6)
[2022-04-21 14:23] LABS: Polychromasia Present; Toxic Granulation Present
[2022-04-21] MEDS ORDERED: INSULIN REGULAR 100 UNIT in SODIUM CHLORIDE 0.9% 100 ML IV SCH (14:30)
[2022-04-21 14:40] LABS: Glucose,Whole Blood 156 mg/dL (70-110)
[2022-04-21 14:45] LABS: ABG Base Excess -8.2 mmol/L; ABG HCO3 18 mmol/L (21-25); ABG Oxygen Saturation 96.5 % (94-97); ABG PCO2 38 mmHg (35-45); ABG PH 7.29 (7.35-7.45); ABG PO2 92 mmHg (83-108); ABG TCO2 20 mmol/L (19-24)
[2022-04-21] MEDS: DULoxetine HCL 60 MG CAPSULE.DR PO SCH (14:48)
[2022-04-21] MEDS: FUROSEMIDE 20 MG TAB PO SCH (14:48)
--- NOTE | 2022-04-21 14:49 | P.PN ---
Subjective Progress Note Date: 04/21/22 On 04/18/2022, the patient is being seen for a follow-up. The patient is currently postop day #7 vessel bypass surgery. The patient also has COPD, hypertension, hyperlipidemia, insulin-dependent diabetes mellitus, liver cirrhosis, bronchial asthma, Leonard's esophagus, peripheral vascular disease, history of melanoma and history of iron deficiency in addition to history of depression and history of tremors. His recovered has been essentially slow. After extubation, the patient required BiPAP for respiratory support and subsequently was transitioned to high flow oxygen and currently is on oxygen at 15 L high flow. Most recent chest x-ray shows cardiomegaly, atelectatic changes in the right lung base and small bilateral pleural effusions. Surgical 1 site is dry clean and intact. No airspace disease or consolidations noted on the most recent chest x-ray. The patient oxygen flow is at 15 L with a pulse ox of 95%. At the same time, the patient is receiving diuretics on a daily basis and he was switched to Lasix 20 mg by mouth daily. His fluid balance has been negative to liters on 04/16/2022 and since then she she has been in mild positive fluid balance. He has developed an acute kidney injury. Creatinine today is at 1.4 with a BUN of 43 and a sodium is at 135. Liver function tests are normal. The white cell count is at 11.9 with a hemoglobin of 7.4 platelet count of 170. Blood sugars have been under adequate control and the patient is currently on Levemir insulin 18 units at bedtime and 18 units in the morning and he is also taken a sliding scale coverage. For his still has a Woods catheter in place. Chest tubes have been removed to. Pulmonary case have been resumed. He is on aspirin and Plavix. Is also on amiodarone for prophylactic reasons. He is currently on oral iron. He is on metoprolol 25 mg by mouth twice a day as beta blockers and is also on statins. On 04/19/2022, the patient is being seen for a follow-up. On today's evaluation, the patient has been weaned down to 6 L of oxygen by nasal cannula. The patient using incentive spirometer and pulling approximately 1000. The patient has no specific complaints. No significant cough or sputum production. No chest tightness. No wheezing. He has multiple comorbidities as discussed earlier. The patient is postop day #8. Note that the patient underwent four- vessel bypass surgery. On yesterday's evaluation, the patient was quite hypoxic and his oxygenation improved. He is on bronchodilators. He is on Symbicort as maintenance for now. He is on Levemir insulin for blood sugar control at a dose of 18 units in the evening and 9 units of NovoLog 3 times a day. He is on Lasix orally 20 mg by mouth daily. IV fluids are currently at KVO. On his blood work, the white cell count at 16 with a hemoglobin of 7.7, his sodium level of 136, potassium is 4, chloride is 105, bicarb is 24, BUN is 47 and a creatinine is at 1.4. The chest x-ray from today shows small bilateral pleural effusion and patchy infiltration lung bases. Pneumonia is doubtful. Patient is awake and alert and moving all extremities and following commands without any limitation. On today's evaluation of 04/20/2022, I'm seeing the patient for a follow-up. The patient essentially the same condition. He remains on 6 L of O2 nasal cannula. The patient is quite weak and he is going to go to rehabilitation. Meanwhile, I reviewed the chest x-ray and I was concerned that the patient may have an underlying pleural effusion. Based on that, although some of the chest was done and the patient was found to have a sizable fluid on the left and the patient was given a thoracentesis with a total of 300 mL of fluid was aspirated from the left lung without any major difficulties. The patient for now is doing well. He is awaiting to be transferred to [facility]. He is on Lasix 20 mg by mouth daily. Is on Levemir insulin. Rest of the medications remain unchanged. The chest x-rays was done following the thoracentesis showed small pleural effusion without any signs of a pneumothorax and the patient continued to have a mild central pulmonary vessel congestion. Hemodynamically stable. Cardiac rhythm is sinus. On 04/21/2022, the patient is doing very poor. Events from yesterday were noted. Note that by late afternoon, patient started having episode of GI bleed. The patient drop in hemoglobin and the patient became hemodynamically unstable and incentive the patient became progressively more acidotic, obtunded, lethargic and weak. At that point, suspicion regarding GI bleed was started. The patient was having bloody output from his rectum all patient and clots were also present. the patient had several episodes of GI bleed. During the course, the patient was assisted left fluids and the patient was given a total of 2 L of IV fluids with normal saline, 2 units of packed RBCs and the patient was also started on pressors. Subsequently, the patient was intubated and placed on a mechanical ventilator. Lactic acid level was as high as 11 and during the resuscitation process, the lactic acid gradually improved. The patient did have a run of V. tach also spontaneously recovered during the resuscitation process. Note that, overnight, the patient was kept intubated on a mechanical ventilator. This morning, he remains on propofol and this was at 35 microvascular kilogram per minute. The patient was assist-control mode of mechanical ventilation. The rate was 24 with a tidal volume of 450 and FiO2 of 65% with a PEEP of 5. Morning blood gases showed a pH of 7.4 with a pCO2 of 32 and pO2 of 62. The liver function tests were elevated and the patient had shock liver. INR was at 1.3 with a PT of 15.4. The patient is on norepinephrine at 0.17 microvascular kilogram per minutes. The patient was also given bicarb overnight and the patient is currently on bicarb infusion at the rate of 100 mL an hour. Sodium is at 136, potassium is at 4.7, BUN is at 45 and a creatinine is at 1.6. The white cell count came up to 35 with a hemoglobin of 8 and a platelet count of 35. Based on all of these abnormal progression in abnormalities, the patient was suspected to have an ischemic colitis patient with an elevated lactic acid level and ongoing lower GI bleed. NG tube was not showing any bloody output. The patient was started on a combination of cefepime and Flagyl. The patient w as transferred to the CAT scan department and the patient underwent a CAT scan of the abdomen that showed atelectatic changes in consolidations in the lung bases with small effusions. There was no evidence of any acute intra-abdominal abnormalities. Abdomen remained soft. Sounds hypoactive. Furthermore, this morning, the patient became progressively more hypoxic. PT was gradually increased up to 18. The patient was given paralytics limited secondary to the mechanical ventilator. The patient's respiratory rate was increased up to 28. Tidal volume was increased up to 500. The patient subsequently had a cardiac arrest with V. tach. The patient received CPR. No defibrillation was done. This was quite brief. The patient was given more bicarb. Repeat labs were done. The most recent blood gas showing a pH of 7.38 with episodes of 43 and pO2 of 79. His white suppositive 40.7 with a hemoglobin of 7.0. Also, there is using level exercises showing a BUN of 45 with a creatinine of 2.0 and a sodium level is at 136. Lactic acid level is up to 11.4. LFTs remain abnormal including AST and ALP and both of them are on the rise. Amylase and lipase were normal. Calcium was low and the patient was given a total of 2 g of calcium gluconate. A triple-lumen catheter was established in the right IJ. Objective - Vital Signs Vital signs: Vital Signs Temp 100.7 F H 04/21/22 08:00 Pulse 101 H 04/21/22 11:18 Resp 25 H 04/21/22 11:18 BP 130/46 04/21/22 09:00 Pulse Ox 91 L 04/21/22 09:00 FiO2 100 04/21/22 14:34 Intake & Output 04/20/22 04/21/22 04/21/22 18:59 06:59 18:59 Intake Total 290 3827.067 858.263 Output Total 940 340 80 Balance -650 3487.067 778.263 Weight 111.3 kg Intake: IV 40 2707 309 0.9NS Pressure Bag 27 9 Dextrose 5% in Water 1, 600 300 000 ml @ 100 mls/hr IV . [id number] BRIDGET with Sodium Bicarb (1 Meq/ml) 150 ml Rx#:[id number] Sodium Chloride 0.9% 1, 40 2080 000 ml @ 20 mls/hr IV . Q24H BRIDGET Rx#:[id number] Intake, IV Titration 810.067 549.263 Amount Cefepime 2 gm In Sodium 100 Chloride 0.9% 100 ml @ 25 mls/hr IVPB Q12H BRIDGET Rx# :[id number] Norepinephrine 32 mg In 13.26 Sodium Chloride 0.9% 218 ml @ 0.03 MCG/KG/MIN 1. 565 mls/hr IV .Q24H BRIDGET Rx#:[id number] Norepinephrine 4 mg In 448.006 355.739 Sodium Chloride 0.9% 250 ml @ 0.03 MCG/KG/MIN 12. 687 mls/hr IV .Q20H2M BRIDGET Rx#:[id number] metroNIDAZOLE-NS PMX 500 100 mg In Saline 1 100ml.bag @ 100 mls/hr IVPB Q6H BRIDGET Rx#:[id number] propofoL 1,000 mg In 162.061 180.264 Empty Bag 1 bag @ 15 MCG/ KG/MIN 9.99 mls/hr IV . Q10H1M BRIDGET Rx#:[id number] Oral 250 Blood Product 310 Rc As-1 Unit 0 [id number] Rc As-1 Unit 310 [id number] Output: Drainage 300 thoracentisis 300 Urine 640 340 80 Other: Voiding Method Indwelling Catheter Indwelling Catheter # Bowel Movements 2 ABP, PAP, CO, CI - Last Documented Arterial Blood Pressure 116/42 Pulmonary Artery Pressure 38/5 Cardiac Output 5.5 Cardiac Index 2.5 - Exam Patient is currently sedated on propofol and intubated on a mechanical ventilator and the patient is also paralyzed with Nimbex. Head exam was generally normal. There was no scleral icterus or corneal arcus. Mucous membranes were moist. HEENT examination is grossly unremarkable. The patient has a right IJ triple- lumen catheter in place. Neck supple. Full range of motion. No adenopathy thyromegaly or neck vein distention. Cardiovascular examination reveals regular rhythm rate. S1-S2 normal. No S3 or S4. No discernible murmur noted. Heart sounds are distant. Lungs reveal scattered bibasilar crackles, and diffuse coarse rhonchi. His cough is wet and congested. No wheezes. Abdomen soft bowel No masses or tenderness. Bowel sounds are absent and there is no direct tenderness or rebound tenderness or guarding at this point in time. Extremities are intact. No cyanosis or clubbing. Trace edema present. Skin is without rash or lesion. Neurologic examination is brief but nonfocal. The patient is currently sedated and paralyzed. - Labs CBC & Chem 7: 04/21/22 11:50 04/21/22 11:50 Labs: Abnormal Lab Results - Last 24 Hours (Table) 04/20/22 04/20/22 04/20/22 Range/Units 17:03 17:08 17:09 WBC 22.9 H (3.8-10.6) k/uL RBC 2.81 L (4.30-5.90) m/uL Hgb 7.1 L (13.0-17.5) gm/dL Hct 22.9 L (39.0-53.0) % MCHC 30.9 L (31.0-37.0) g/dL RDW 19.3 H (11.5-15.5) % Neutrophils # (1.3-7.7) k/uL Neutrophils # (Manual) (1.3-7.7) k/uL Monocytes # (0-1.0) k/uL Monocytes # (Manual) (0-1.0) k/uL Myelocytes # (Manual) (0) k/uL Nucleated RBCs (0-0) /100 WBC PT (9.0-12.0) sec INR (<1.2) APTT 41.5 H (22.0-30.0) sec ABG pH (7.35-7.45) ABG pCO2 (35-45) mmHg ABG pO2 (83-108) mmHg ABG HCO3 (21-25) mmol/L ABG Total CO2 (19-24) mmol/L ABG O2 Saturation (94-97) % ABG Lactic Acid (0.5-1.6) mmol/L Sodium (137-145) mmol/L Potassium (3.5-5.1) mmol/L Carbon Dioxide (22-30) mmol/L BUN (9-20) mg/dL Creatinine (0.66-1.25) mg/dL Glucose (74-99) mg/dL POC Glucose (mg/dL) (70-110) mg/dL Plasma Lactic Acid Tashi (0.7-2.0) mmol/L Calcium (8.4-10.2) mg/dL Ionized Calcium Gage (4.5-5.3) mg/dL Total Bilirubin (0.2-1.3) mg/dL AST (17-59) U/L ALT (4-49) U/L Alkaline Phosphatase (38-126) U/L Total Protein (6.3-8.2) g/dL Albumin (3.5-5.0) g/dL Crossmatch See Detail 04/20/22 04/20/22 04/20/22 Range/Units 17:26 19:52 19:58 WBC (3.8-10.6) k/uL RBC (4.30-5.90) m/uL Hgb (13.0-17.5) gm/dL Hct (39.0-53.0) % MCHC (31.0-37.0) g/dL RDW (11.5-15.5) % Neutrophils # (1.3-7.7) k/uL Neutrophils # (Manual) (1.3-7.7) k/uL Monocytes # (0-1.0) k/uL Monocytes # (Manual) (0-1.0) k/uL Myelocytes # (Manual) (0) k/uL Nucleated RBCs (0-0) /100 WBC PT (9.0-12.0) sec INR (<1.2) APTT (22.0-30.0) sec ABG pH 7.27 L (7.35-7.45) ABG pCO2 27 L (35-45) mmHg ABG pO2 77 L (83-108) mmHg ABG HCO3 12 L (21-25) mmol/L ABG Total CO2 13 L (19-24) mmol/L ABG O2 Saturation (94-97) % ABG Lactic Acid (0.5-1.6) mmol/L Sodium (137-145) mmol/L Potassium (3.5-5.1) mmol/L Carbon Dioxide (22-30) mmol/L BUN (9-20) mg/dL Creatinine (0.66-1.25) mg/dL Glucose (74-99) mg/dL POC Glucose (mg/dL) 131 H 128 H (70-110) mg/dL Plasma Lactic Acid Tashi (0.7-2.0) mmol/L Calcium (8.4-10.2) mg/dL Ionized Calcium Gage (4.5-5.3) mg/dL Total Bilirubin (0.2-1.3) mg/dL AST (17-59) U/L ALT (4-49) U/L Alkaline Phosphatase (38-126) U/L Total Protein (6.3-8.2) g/dL Albumin (3.5-5.0) g/dL Crossmatch 04/20/22 04/20/22 04/20/22 Range/Units 21:16 21:16 21:21 WBC 36.8 H (3.8-10.6) k/uL RBC 2.84 L (4.30-5.90) m/uL Hgb 7.4 L (13.0-17.5) gm/dL Hct 24.3 L (39.0-53.0) % MCHC 30.3 L (31.0-37.0) g/dL RDW 18.4 H (11.5-15.5) % Neutrophils # 32.9 H (1.3-7.7) k/uL Neutrophils # (Manual) (1.3-7.7) k/uL Monocytes # 1.5 H (0-1.0) k/uL Monocytes # (Manual) (0-1.0) k/uL Myelocytes # (Manual) (0) k/uL Nucleated RBCs (0-0) /100 WBC PT (9.0-12.0) sec INR (<1.2) APTT (22.0-30.0) sec ABG pH 7.21 L (7.35-7.45) ABG pCO2 (35-45) mmHg ABG pO2 (83-108) mmHg ABG HCO3 15 L (21-25) mmol/L ABG Total CO2 17 L (19-24) mmol/L ABG O2 Saturation (94-97) % ABG Lactic Acid (0.5-1.6) mmol/L Sodium 136 L (137-145) mmol/L Potassium 5.2 H (3.5-5.1) mmol/L Carbon Dioxide 14 L (22-30) mmol/L BUN 41 H (9-20) mg/dL Creatinine 1.97 H (0.66-1.25) mg/dL Glucose (74-99) mg/dL POC Glucose (mg/dL) (70-110) mg/dL Plasma Lactic Acid Tashi (0.7-2.0) mmol/L Calcium 7.0 L (8.4-10.2) mg/dL Ionized Calcium Gage (4.5-5.3) mg/dL Total Bilirubin (0.2-1.3) mg/dL AST 814 H (17-59) U/L ALT 263 H (4-49) U/L Alkaline Phosphatase 211 H (38-126) U/L Total Protein 4.7 L (6.3-8.2) g/dL Albumin 2.4 L (3.5-5.0) g/dL Crossmatch 04/20/22 04/20/22 04/21/22 Range/Units 21:50 22:15 02:26 WBC (3.8-10.6) k/uL RBC (4.30-5.90) m/uL Hgb (13.0-17.5) gm/dL Hct (39.0-53.0) % MCHC (31.0-37.0) g/dL RDW (11.5-15.5) % Neutrophils # (1.3-7.7) k/uL Neutrophils # (Manual) (1.3-7.7) k/uL Monocytes # (0-1.0) k/uL Monocytes # (Manual) (0-1.0) k/uL Myelocytes # (Manual) (0) k/uL Nucleated RBCs (0-0) /100 WBC PT (9.0-12.0) sec INR (<1.2) APTT (22.0-30.0) sec ABG pH (7.35-7.45) ABG pCO2 (35-45) mmHg ABG pO2 (83-108) mmHg ABG HCO3 (21-25) mmol/L ABG Total CO2 (19-24) mmol/L ABG O2 Saturation (94-97) % ABG Lactic Acid 11.0 H* (0.5-1.6) mmol/L Sodium (137-145) mmol/L Potassium (3.5-5.1) mmol/L Carbon Dioxide (22-30) mmol/L BUN (9-20) mg/dL Creatinine (0.66-1.25) mg/dL Glucose (74-99) mg/dL POC Glucose (mg/dL) 117 H 118 H (70-110) mg/dL Plasma Lactic Acid Tashi (0.7-2.0) mmol/L Calcium (8.4-10.2) mg/dL Ionized Calcium Gage (4.5-5.3) mg/dL Total Bilirubin (0.2-1.3) mg/dL AST (17-59) U/L ALT (4-49) U/L Alkaline Phosphatase (38-126) U/L Total Protein (6.3-8.2) g/dL Albumin (3.5-5.0) g/dL Crossmatch 04/21/22 04/21/22 04/21/22 Range/Units 04:07 04:07 04:07 WBC 35.1 H (3.8-10.6) k/uL RBC 2.95 L (4.30-5.90) m/uL Hgb 8.0 L (13.0-17.5) gm/dL Hct 24.8 L (39.0-53.0) % MCHC (31.0-37.0) g/dL RDW 18.4 H (11.5-15.5) % Neutrophils # (1.3-7.7) k/uL Neutrophils # (Manual) 32.20 H (1.3-7.7) k/uL Monocytes # (0-1.0) k/uL Monocytes # (Manual) 1.05 H (0-1.0) k/uL Myelocytes # (Manual) 0.70 H (0) k/uL Nucleated RBCs 1 H (0-0) /100 WBC PT (9.0-12.0) sec INR (<1.2) APTT (22.0-30.0) sec ABG pH (7.35-7.45) ABG pCO2 (35-45) mmHg ABG pO2 (83-108) mmHg ABG HCO3 (21-25) mmol/L ABG Total CO2 (19-24) mmol/L ABG O2 Saturation (94-97) % ABG Lactic Acid (0.5-1.6) mmol/L Sodium 136 L (137-145) mmol/L Potassium (3.5-5.1) mmol/L Carbon Dioxide 21 L (22-30) mmol/L BUN 45 H (9-20) mg/dL Creatinine 1.68 H (0.66-1.25) mg/dL Glucose 135 H (74-99) mg/dL POC Glucose (mg/dL) (70-110) mg/dL Plasma Lactic Acid Tashi 7.3 H* (0.7-2.0) mmol/L Calcium 6.1 L* (8.4-10.2) mg/dL Ionized Calcium Gage (4.5-5.3) mg/dL Total Bilirubin 1.7 H (0.2-1.3) mg/dL AST 3741 H (17-59) U/L ALT 1106 H (4-49) U/L Alkaline Phosphatase 187 H (38-126) U/L Total Protein 4.1 L (6.3-8.2) g/dL Albumin 2.0 L (3.5-5.0) g/dL Crossmatch 04/21/22 04/21/22 04/21/22 Range/Units 05:47 06:32 09:00 WBC (3.8-10.6) k/uL RBC (4.30-5.90) m/uL Hgb (13.0-17.5) gm/dL Hct (39.0-53.0) % MCHC (31.0-37.0) g/dL RDW (11.5-15.5) % Neutrophils # (1.3-7.7) k/uL Neutrophils # (Manual) (1.3-7.7) k/uL Monocytes # (0-1.0) k/uL Monocytes # (Manual) (0-1.0) k/uL Myelocytes # (Manual) (0) k/uL Nucleated RBCs (0-0) /100 WBC PT (9.0-12.0) sec INR (<1.2) APTT (22.0-30.0) sec ABG pH (7.35-7.45) ABG pCO2 30 L (35-45) mmHg ABG pO2 64 L (83-108) mmHg ABG HCO3 (21-25) mmol/L ABG Total CO2 (19-24) mmol/L ABG O2 Saturation 93.7 L (94-97) % ABG Lactic Acid (0.5-1.6) mmol/L Sodium (137-145) mmol/L Potassium (3.5-5.1) mmol/L Carbon Dioxide (22-30) mmol/L BUN (9-20) mg/dL Creatinine (0.66-1.25) mg/dL Glucose (74-99) mg/dL POC Glucose (mg/dL) 169 H (70-110) mg/dL Plasma Lactic Acid Tashi (0.7-2.0) mmol/L Calcium (8.4-10.2) mg/dL Ionized Calcium Gage 3.7 L (4.5-5.3) mg/dL Total Bilirubin (0.2-1.3) mg/dL AST (17-59) U/L ALT (4-49) U/L Alkaline Phosphatase (38-126) U/L Total Protein (6.3-8.2) g/dL Albumin (3.5-5.0) g/dL Crossmatch 04/21/22 04/21/22 04/21/22 Range/Units 09:00 09:21 11:41 WBC (3.8-10.6) k/uL RBC (4.30-5.90) m/uL Hgb (13.0-17.5) gm/dL Hct (39.0-53.0) % MCHC (31.0-37.0) g/dL RDW (11.5-15.5) % Neutrophils # (1.3-7.7) k/uL Neutrophils # (Manual) (1.3-7.7) k/uL Monocytes # (0-1.0) k/uL Monocytes # (Manual) (0-1.0) k/uL Myelocytes # (Manual) (0) k/uL Nucleated RBCs (0-0) /100 WBC PT 13.4 H (9.0-12.0) sec INR 1.3 H (<1.2) APTT 33.1 H (22.0-30.0) sec ABG pH (7.35-7.45) ABG pCO2 32 L (35-45) mmHg ABG pO2 62 L (83-108) mmHg ABG HCO3 20 L (21-25) mmol/L ABG Total CO2 (19-24) mmol/L ABG O2 Saturation 91.5 L (94-97) % ABG Lactic Acid (0.5-1.6) mmol/L Sodium (137-145) mmol/L Potassium (3.5-5.1) mmol/L Carbon Dioxide (22-30) mmol/L BUN (9-20) mg/dL Creatinine (0.66-1.25) mg/dL Glucose (74-99) mg/dL POC Glucose (mg/dL) 145 H (70-110) mg/dL Plasma Lactic Acid Tashi (0.7-2.0) mmol/L Calcium (8.4-10.2) mg/dL Ionized Calcium Gage (4.5-5.3) mg/dL Total Bilirubin (0.2-1.3) mg/dL AST (17-59) U/L ALT (4-49) U/L Alkaline Phosphatase (38-126) U/L Total Protein (6.3-8.2) g/dL Albumin (3.5-5.0) g/dL Crossmatch 04/21/22 04/21/22 04/21/22 Range/Units 11:50 11:50 11:50 WBC 40.9 H (3.8-10.6) k/uL RBC 2.56 L (4.30-5.90) m/uL Hgb 7.0 L (13.0-17.5) gm/dL Hct 22.2 L (39.0-53.0) % MCHC (31.0-37.0) g/dL RDW 18.4 H (11.5-15.5) % Neutrophils # (1.3-7.7) k/uL Neutrophils # (Manual) 37.63 H (1.3-7.7) k/uL Monocytes # (0-1.0) k/uL Monocytes # (Manual) 1.23 H (0-1.0) k/uL Myelocytes # (Manual) (0) k/uL Nucleated RBCs 3 H (0-0) /100 WBC PT (9.0-12.0) sec INR (<1.2) APTT (22.0-30.0) sec ABG pH (7.35-7.45) ABG pCO2 (35-45) mmHg ABG pO2 (83-108) mmHg ABG HCO3 (21-25) mmol/L ABG Total CO2 (19-24) mmol/L ABG O2 Saturation (94-97) % ABG Lactic Acid (0.5-1.6) mmol/L Sodium 136 L (137-145) mmol/L Potassium (3.5-5.1) mmol/L Carbon Dioxide 17 L (22-30) mmol/L BUN 45 H (9-20) mg/dL Creatinine 2.00 H (0.66-1.25) mg/dL Glucose 123 H (74-99) mg/dL POC Glucose (mg/dL) (70-110) mg/dL Plasma Lactic Acid Tashi 11.4 H* (0.7-2.0) mmol/L Calcium 6.0 L* (8.4-10.2) mg/dL Ionized Calcium Gage (4.5-5.3) mg/dL Total Bilirubin (0.2-1.3) mg/dL AST 3133 H (17-59) U/L ALT 999 H (4-49) U/L Alkaline Phosphatase 167 H (38-126) U/L Total Protein 3.7 L (6.3-8.2) g/dL Albumin 1.8 L (3.5-5.0) g/dL Crossmatch 04/21/22 04/21/22 Range/Units 12:04 12:19 WBC (3.8-10.6) k/uL RBC (4.30-5.90) m/uL Hgb (13.0-17.5) gm/dL Hct (39.0-53.0) % MCHC (31.0-37.0) g/dL RDW (11.5-15.5) % Neutrophils # (1.3-7.7) k/uL Neutrophils # (Manual) (1.3-7.7) k/uL Monocytes # (0-1.0) k/uL Monocytes # (Manual) (0-1.0) k/uL Myelocytes # (Manual) (0) k/uL Nucleated RBCs (0-0) /100 WBC PT (9.0-12.0) sec INR (<1.2) APTT (22.0-30.0) sec ABG pH 7.19 L* (7.35-7.45) ABG pCO2 (35-45) mmHg ABG pO2 70 L 79 L (83-108) mmHg ABG HCO3 16 L (21-25) mmol/L ABG Total CO2 17 L 27 H (19-24) mmol/L ABG O2 Saturation 89.1 L (94-97) % ABG Lactic Acid (0.5-1.6) mmol/L Sodium (137-145) mmol/L Potassium (3.5-5.1) mmol/L Carbon Dioxide (22-30) mmol/L BUN (9-20) mg/dL Creatinine (0.66-1.25) mg/dL Glucose (74-99) mg/dL POC Glucose (mg/dL) (70-110) mg/dL Plasma Lactic Acid Tashi (0.7-2.0) mmol/L Calcium (8.4-10.2) mg/dL Ionized Calcium Gage (4.5-5.3) mg/dL Total Bilirubin (0.2-1.3) mg/dL AST (17-59) U/L ALT (4-49) U/L Alkaline Phosphatase (38-126) U/L Total Protein (6.3-8.2) g/dL Albumin (3.5-5.0) g/dL Crossmatch Microbiology - Last 24 Hours (Table) 04/20/22 23:57 Sputum Culture - Preliminary Sputum Assessment and Plan Plan: Coronary artery disease status post coronary artery bypass grafting 4 with a SANTA to the LAD, left radial artery graft to the first obtuse marginal, saphenous vein graft to the first diagonal, saphenous vein graft to the posterior lateral branch of the RCA. Left atrial appendage clip. Postoperative day #10 Acute lower GI bleed, consider the possibility of an ischemic colitis. The patient developed GI bleed and severe lactic acidosis. Patient also developed leukocytosis. The patient was started on broad-spectrum antibiotics. Patient is currently being resuscitated with fluids and pressors Acute shock, likely septic in nature, consider underlying ischemic colitis. The patient is covered with broad-spectrum antibiotics and fluids and pressors. Acute hypotension secondary to above Acute lactic acidosis under investigation Acute hypoxic respiratory failure, currently intubated on mechanical ventilator and the patient is sedated and paralyzed. The patient was intubated yesterday on 04/17/2022. Chest x-ray was noted. Blood gas was noted. Cardiac arrest secondary to episodes of V. tach, given lidocaine by cardiothora cic team Blood loss anemia secondary to GI bleed, given a total of 2 units of packed RBC Left-sided pleural effusion post thoracentesis and removal of 300 mL of pleural fluid Acute kidney injury, and the creatinine is on the rise shock liver with elevated LFTs Hypertension, history of. Hyperlipidemia. History of melanoma of the left eyelid, resected. Leonard's esophagus. Parkinson tremors. Former smoker, quit 30 years ago. Chronic obstructive pulmonary disease. The patient has a preserved FEV1 of 88% of predicted Peripheral vascular disease History of liver cirrhosis History of skin melanoma History of chronic generalized anxiety disorder/depression Diabetes mellitus, with insulin dependence Degenerative arthritis Chronic back pain Iron deficiency anemia Peripheral neuropathy Plan continue vent support History ventilator changes were done Keep the patient sedated with propofol and paralyzed the patient with Nimbex infusion The patient is currently on IV fluids and the patient is on a bicarb infusion at the rate of 100 mL an hour Continue pressors and the patient will be started on vasopressin his urologic those and will continue also norepinephrine infusion and titrate to maintain him yesterday pressure was 65 Continue cefepime and Flagyl as empiric antibiotic coverage CAT scan of the abdomen was noted and the repeat CAT scan that was being considered as long as the patient remains stable Put the patient on lidocaine drip Monitor LFTs Monitor renal function Monitor cardiac rhythm Replace low calcium Continue further resuscitation. The patient will be given normal saline and colloids in the form of IV albumin and total of 2 50 mL of 5% albumin Condition is extremely critical. We'll continue following up this patient along with the rest of the consultants from general surgery and cardiothoracic team. Critical care evaluation that was done in more than 30 minutes. Time with Patient: Greater than 30
[2022-04-21 15:43] LABS: Glucose,Whole Blood 158 mg/dL (70-110)
[2022-04-21 15:55] LABS: Albumin 2.1 g/dL (3.5-5.0); Calcium 6.5 mg/dL (8.4-10.2); Total Bilirubin 1.6 mg/dL (0.2-1.3); Total Protein 4.2 g/dL (6.3-8.2)
[2022-04-21 16:22] LABS: Anisocytosis Slight; HCT 22.3 % (39.0-53.0); HGB 7.3 gm/dL (13.0-17.5); Hypochromasia Marked; MCH 28.4 pg (25.0-35.0); MCHC 32.7 g/dL (31.0-37.0); MCV 86.8 fL (80.0-100.0); Mean Platelet Volume 8.5; Platelet Count 366 k/uL (150-450); Poikilocytosis Moderate; RBC 2.57 m/uL (4.30-5.90); RDW 18.5 % (11.5-15.5)
[2022-04-21 16:32] LABS: ABG Base Excess -7.2 mmol/L; ABG HCO3 20 mmol/L (21-25); ABG Oxygen Saturation 91.5 % (94-97); ABG PCO2 41 mmHg (35-45); ABG PH 7.28 (7.35-7.45); ABG PO2 68 mmHg (83-108); ABG TCO2 21 mmol/L (19-24)
[2022-04-21] MEDS ORDERED: SODIUM BICARB 8.4% 50 ML SYR (1 MEQ/ML) IV STA ×3 (16:42→22:32)
[2022-04-21 17:11] LABS: Glucose,Whole Blood 189 mg/dL (70-110)
[2022-04-21 17:27] LABS: Band Neutrophils % 7 %; Lymphocytes # (M) 2.01 k/uL (1.0-4.8); Metamyelocytes % 1 %; Myelocytes % 1 %; Neutrophils % (M) 86 %; Nucleated Red Blood Cells 1 /100 WBC (0-0); Total Cells Counted 200; Toxic Granulation Present; WBC 40.1 k/uL (3.8-10.6)
[2022-04-21 17:28] LABS: Polychromasia Present; Toxic Vacuolation Present
--- NOTE | 2022-04-21 17:28 | P.PCN ---
Date of Procedure: 04/21/22 Preoperative Diagnosis: Acute hypoxic respiratory failure Postoperative Diagnosis: Same Procedure(s) Performed: Triple-lumen Anesthesia: local Surgeon: Duane Wells Estimated Blood Loss (ml): 0 Condition: critical Disposition: ICU Operative Findings: Indication: Hemodynamic monitoring/Intravenous access. A time-out was completed verifying correct patient, procedure, site, positioning, and implant(s) or special equipment if applicable. The patient was placed in a dependent position appropriate for central line placement based on the vein to be cannulated. The patients left neck was prepped and draped in sterile fashion. 1% Lidocaine was used to anesthetize the surrounding skin area. A triple lumen 9F Cordis catheter was introduced into the left internal jugular vein using Seldinger technique. The catheter was threaded smoothly over the guide wire and appropriate blood return was obtained. Each lumen of the catheter was evacuated of air and flushed with sterile saline. The catheter was then sutured in place to the skin and a sterile dressing applied. Perfusion to the extremity distal to the point of catheter insertion was checked and found to be adequate. The patient tolerated the procedure well and there were no complications.
[2022-04-21 18:11] LABS: Glucose,Whole Blood 137 mg/dL (70-110)
[2022-04-21 18:27] LABS: ABG Base Excess -6.7 mmol/L; ABG HCO3 20 mmol/L (21-25); ABG Oxygen Saturation 94.7 % (94-97); ABG PCO2 40 mmHg (35-45); ABG PO2 77 mmHg (83-108); ABG TCO2 21 mmol/L (19-24)
[2022-04-21 19:13] LABS: Glucose,Whole Blood 147 mg/dL (70-110)
[2022-04-21 20:02] LABS: Anisocytosis Slight; HCT 21.4 % (39.0-53.0); HGB 7.1 gm/dL (13.0-17.5); Hypochromasia Marked; MCH 28.7 pg (25.0-35.0); MCHC 33.1 g/dL (31.0-37.0); MCV 86.5 fL (80.0-100.0); Mean Platelet Volume 7.7; Platelet Count 323 k/uL (150-450); Poikilocytosis Moderate; RBC 2.48 m/uL (4.30-5.90); RDW 18.3 % (11.5-15.5)
[2022-04-21 20:10] LABS: Calcium 6.7 mg/dL (8.4-10.2); Total Bilirubin 1.6 mg/dL (0.2-1.3); Total Protein 4.1 g/dL (6.3-8.2)
[2022-04-21 20:22] LABS: Potassium 4.9 mmol/L (3.5-5.1)
[2022-04-21 20:24] LABS: ABG Base Excess -7.5 mmol/L; ABG HCO3 19 mmol/L (21-25); ABG Oxygen Saturation 97.4 % (94-97); ABG PCO2 38 mmHg (35-45); ABG PO2 99 mmHg (83-108); ABG TCO2 20 mmol/L (19-24); Allen Test Performed? Yes
[2022-04-21] MEDS: SENNOSIDES-DOCUSATE SODIUM 1 EACH TAB PO SCH (20:25)
[2022-04-21] MEDS ORDERED: CALCIUM GLUCONATE IN NACL 1 GM in SALINE 1 100ML.BAG IVPB ONE (20:42)
[2022-04-21 20:52] LABS: Glucose,Whole Blood 163 mg/dL (70-110)
[2022-04-21] MEDS: PANTOPRAZOLE 40 MG/10 ML VIAL IVP SCH (20:59)
[2022-04-21 21:54] LABS: Glucose,Whole Blood 171 mg/dL (70-110)
[2022-04-21 22:03] LABS: Band Neutrophils % 17 %; Metamyelocytes % 1 %; Neutrophils % (M) 80 %; Nucleated Red Blood Cells 3 /100 WBC (0-0); Total Cells Counted 200
[2022-04-21 22:04] LABS: Lymphocytes # (M) 1.15 k/uL (1.0-4.8); Metamyelocytes # (M) 0.38 k/uL (0); Monocytes # (M) 0.38 k/uL (0-1.0); WBC 38.3 k/uL (3.8-10.6)
[2022-04-21 22:05] LABS: Polychromasia Present; Toxic Granulation Present; Toxic Vacuolation Present
[2022-04-21 22:30] LABS: ABG Base Excess -6.4 mmol/L; ABG HCO3 20 mmol/L (21-25); ABG Oxygen Saturation 97.3 % (94-97); ABG PCO2 38 mmHg (35-45); ABG PH 7.32 (7.35-7.45); ABG PO2 92 mmHg (83-108); ABG TCO2 21 mmol/L (19-24); Allen Test Performed? Yes
[2022-04-21 22:53] LABS: Glucose,Whole Blood 181 mg/dL (70-110)
[2022-04-22 00:22] LABS: Glucose,Whole Blood 193 mg/dL (70-110)
[2022-04-22 00:23] LABS: ABG Base Excess -6.3 mmol/L; ABG HCO3 20 mmol/L (21-25); ABG Oxygen Saturation 96.3 % (94-97); ABG PCO2 40 mmHg (35-45); ABG PH 7.31 (7.35-7.45); ABG PO2 82 mmHg (83-108); ABG TCO2 21 mmol/L (19-24); Allen Test Performed? Yes
[2022-04-22] MEDS: CEFEPIME 2 GM in SODIUM CHLORIDE 0.9% 100 ML IVPB SCH (00:36)
[2022-04-22] MEDS ORDERED: SODIUM BICARB 8.4% 50 ML SYR (1 MEQ/ML) IV STA (00:42)
[2022-04-22 01:13] LABS: Glucose,Whole Blood 194 mg/dL (70-110)
[2022-04-22 01:28] LABS: Anisocytosis Slight; HCT 29.1 % (39.0-53.0); Hypochromasia Moderate; MCH 29.3 pg (25.0-35.0); MCHC 34.1 g/dL (31.0-37.0); MCV 85.9 fL (80.0-100.0); Mean Platelet Volume 8.8; Platelet Count 288 k/uL (150-450); Poikilocytosis Moderate; RBC 3.39 m/uL (4.30-5.90); RDW 17.1 % (11.5-15.5)
[2022-04-22 01:34] LABS: HGB 9.9 gm/dL (13.0-17.5)
[2022-04-22] MEDS: NOREPINEPHRINE 32 MG in SODIUM CHLORIDE 0.9% 218 ML IV SCH (02:09)
[2022-04-22] MEDS: LIDOCAINE-D5W PMX 2G/250ML 2,000 MG in DEXTROSE/WATER 1 250ML.BAG IV SCH (02:10)
[2022-04-22 02:14] LABS: Glucose,Whole Blood 200 mg/dL (70-110)
[2022-04-22 02:25] LABS: ABG Base Excess -5.3 mmol/L; ABG HCO3 21 mmol/L (21-25); ABG Oxygen Saturation 95.6 % (94-97); ABG PCO2 41 mmHg (35-45); ABG PH 7.32 (7.35-7.45); ABG PO2 78 mmHg (83-108); ABG TCO2 22 mmol/L (19-24); Allen Test Performed? Yes
[2022-04-22 03:22] LABS: Band Neutrophils % 18 %; Lymphocytes # (M) 2.04 k/uL (1.0-4.8); Metamyelocytes # (M) 0.41 k/uL (0); Metamyelocytes % 1 %; Monocytes # (M) 0.41 k/uL (0-1.0); Neutrophils % (M) 77 %; Nucleated Red Blood Cells 1 /100 WBC (0-0); Total Cells Counted 200; WBC 40.7 k/uL (3.8-10.6)
[2022-04-22 03:24] LABS: Polychromasia Present; Toxic Granulation Present; Toxic Vacuolation Present
[2022-04-22 03:37] LABS: Glucose,Whole Blood 200 mg/dL (70-110)
[2022-04-22 04:10] VITALS: TEMP 98.1
[2022-04-22] MEDS: CISATRACURIUM 200 MG in SODIUM CHLORIDE 0.9% 180 ML IV SCH (04:12)
[2022-04-22 04:14] LABS: Anisocytosis Slight; HCT 29.6 % (39.0-53.0); HGB 10.5 gm/dL (13.0-17.5); Hypochromasia Moderate; MCH 30.3 pg (25.0-35.0); MCHC 35.4 g/dL (31.0-37.0); MCV 85.7 fL (80.0-100.0); Mean Platelet Volume 8.3; Platelet Count 283 k/uL (150-450); Poikilocytosis Moderate; RBC 3.45 m/uL (4.30-5.90); RDW 16.9 % (11.5-15.5)
[2022-04-22 04:21] LABS: ABG Base Excess -4.7 mmol/L; ABG HCO3 21 mmol/L (21-25); ABG Oxygen Saturation 92.3 % (94-97); ABG PCO2 42 mmHg (35-45); ABG PH 7.32 (7.35-7.45); ABG PO2 65 mmHg (83-108); ABG TCO2 23 mmol/L (19-24); Allen Test Performed? Yes
[2022-04-22 04:29] LABS: Ionized Calcium 3.7 mg/dL (4.5-5.3)
[2022-04-22 04:31] LABS: Glucose,Whole Blood 196 mg/dL (70-110)
[2022-04-22 04:33] LABS: Calcium 6.5 mg/dL (8.4-10.2); Potassium 4.6 mmol/L (3.5-5.1); Total Protein 4.2 g/dL (6.3-8.2)
[2022-04-22 04:41] LABS: Total Bilirubin 2.5 mg/dL (0.2-1.3)
[2022-04-22 04:56] LABS: INR 1.5 (<1.2); Partial Thromboplastin Time 34.8 sec (22.0-30.0); Prothrombin Time 15.6 sec (9.0-12.0)
[2022-04-22] MEDS: VASOPRESSIN 60 UNIT in SODIUM CHLORIDE 0.9% 150 ML IV SCH (05:12)
[2022-04-22 05:19] LABS: Glucose,Whole Blood 190 mg/dL (70-110)
[2022-04-22] MEDS ORDERED: CALCIUM GLUCONATE IN NACL 1 GM in SALINE 1 100ML.BAG IVPB ONE (05:30)
[2022-04-22] MEDS: metroNIDAZOLE-NS PMX 500 MG in SALINE 1 100ML.BAG IVPB SCH (05:50)
[2022-04-22 06:10] LABS: Glucose,Whole Blood 175 mg/dL (70-110)
[2022-04-22 06:22] LABS: ABG Base Excess -3.7 mmol/L; ABG HCO3 22 mmol/L (21-25); ABG Oxygen Saturation 89.4 % (94-97); ABG PCO2 42 mmHg (35-45); ABG PH 7.33 (7.35-7.45); ABG TCO2 24 mmol/L (19-24); Allen Test Performed? Yes
[2022-04-22 06:24] LABS: ABG PO2 59 mmHg (83-108)
[2022-04-22] MEDS: FERROUS SULFATE ORAL ELIXIR 300 MG/5 ML CUP OG-TUBE SCH (06:41)
[2022-04-22 06:58] LABS: Band Neutrophils % 17 %; Lymphocytes # (M) 2.02 k/uL (1.0-4.8); Neutrophils % (M) 79 %; Nucleated Red Blood Cells 1 /100 WBC (0-0); Total Cells Counted 200; WBC 40.4 k/uL (3.8-10.6)
[2022-04-22 06:59] LABS: Toxic Granulation Present; Toxic Vacuolation Present
[2022-04-22 07:01] LABS: Polychromasia Present
[2022-04-22 07:10] LABS: Glucose,Whole Blood 168 mg/dL (70-110)
[2022-04-22] MEDS: IPRATROPIUM-ALBUTEROL 3 ML NEB INHALATION SCH ×2 (07:36→11:46)
[2022-04-22] MEDS: SYMBICORT 160-4.5 MCG INHALER INHALATION SCH (07:36)
[2022-04-22 08:07] LABS: Glucose,Whole Blood 201 mg/dL (70-110)
[2022-04-22 08:27] LABS: ABG Base Excess -3.3 mmol/L; ABG HCO3 23 mmol/L (21-25); ABG Oxygen Saturation 84.9 % (94-97); ABG PCO2 44 mmHg (35-45); ABG PH 7.33 (7.35-7.45); ABG TCO2 24 mmol/L (19-24); Allen Test Performed? Yes
[2022-04-22 08:31] LABS: ABG PO2 53 mmHg (83-108)
[2022-04-22 08:35] LABS: Glucose,Whole Blood 164 mg/dL (70-110)
--- NOTE | 2022-04-22 08:54 | P.CONS ---
History of Present Illness - Reason for Consult Consult date: 04/21/22 Leukocytosis Requesting physician: Edson Aranda - Chief Complaint Bleeding per rectum x one day - History of Present Illness Patient is a 77-year-old male electively admitted to hospital on 04/11/2022 about 10 days ago for coronary bypass grafting x4 patient has been in the hospital since then patient did have a episode of bright red blood per rectum last evening patient become hypotensive ended up getting intubated patient also have a run of V. tach spontaneously recovered during the resuscitation process patient did have a low-grade fever 100.7 this morning is currently on the ventilator 100% FiO2 patient did have a white count that was running high over the last few days 22.9 yesterday however has jumped to 40,000 this morning that has prompted this infectious disease consultation UA obtained yesterday has been negative patient did have a chest x-ray bilateral pleural effusion with basilar pulmonary infiltrate congestive heart failure was likely he also have a CT of abdominal pelvis extensive bilateral lower lobe consolidation and atelectasis small effusion small pericardial effusion patient did have blood cultures drawn which currently pending has been started on cefepime and Flagyl infectious disease was consulted for further management of antibiotic therapy most of the information has been obtained from review of the chart talking to nursing staff and the family as the patient is currently intubated on the vent and cannot provide any history Review of Systems Positive points has been mentioned in HPI complete review could not be obtained because of his underlying mental status Past Medical History Past Medical History: Asthma, Cancer, Chest Pain / Angina, Diabetes Mellitus, GERD/Reflux, Hearing Disorder / Deafness, Hyperlipidemia, Hypertension, Liver Disease, Osteoarthritis (OA), Thyroid Disorder Additional Past Medical History / Comment(s): HX MELANOMA LEFT EYELID, HX IRON IFUSIONS(Last 2017), DALY'S ESOPHAGUS, PARKINSONS, TINNITUS IN LEFT EAR, hx. DARK BLOODY STOOLS-last few months ago, FATTY LIVER-possible cirrhosis per pt- sees [facility], LIMITED ROM RIGHT WRIST FROM SURGERY, hx Hyperthyroid. History of Any Multi-Drug Resistant Organisms: None Reported Past Surgical History: Appendectomy, Heart Catheterization, Hernia Repair, Orthopedic Surgery Additional Past Surgical History / Comment(s): COLONOSCOPY, MELANOMA LEFT EYELID WITH SKIN GRAFT, RIGHT INGUINAL HERNIA & UMBILICAL HERNIA REPAIRS, CATARACT RIGHT EYE, HIATAL HERNIA, RIGHT WRIST FUSION, left knee surgery. Past Anesthesia/Blood Transfusion Reactions: No Reported Reaction Past Psychological History: Anxiety, Depression Smoking Status: Former smoker Past Alcohol Use History: Occasional Additional Past Alcohol Use History / Comment(s): QUIT SMOKING ABOUT 1984, SMOKED < 1 PPD. SMOKED APPROX 20 YRS. Past Drug Use History: None Reported - Past Family History Sister(s) Family Medical History: Cancer Additional Family Medical History / Comment(s): Breast Cancer. Mother Family Medical History: Cancer, Hypertension Additional Family Medical History / Comment(s): COLON CANCER. Father Family Medical History: Coronary Artery Disease (CAD), Diabetes Mellitus, Myocardial Infarction (NM) Additional Family Medical History / Comment(s): HEART PROBLEMS. Medications and Allergies Home Medications Medication Instructions Recorded Confirmed Type Primidone [Mysoline] 250 mg PO BID 09/06/17 04/01/22 History DULoxetine HCL 60 mg PO DAILY 04/21/21 04/01/22 History Aspirin 81 mg PO HS 03/22/22 04/01/22 History Ascorbic Acid [Vitamin C] 500 mg PO DAILY 04/01/22 04/01/22 History Atorvastatin [Lipitor] 40 mg PO HS 04/01/22 04/01/22 History Cholecalciferol [Vitamin D3 (25 25 mcg PO DAILY 04/01/22 04/01/22 History Mcg = 1000 Iu)] Acetaminophen Tab [Tylenol] 650 mg PO Q4HR PRN tab 04/20/22 Rx Amiodarone [Cordarone] 200 mg PO BID tab 04/20/22 Rx Budesonide-Formot 160-4.5 Mcg 1 puff INHALATION RT-BID each 04/20/22 Rx [Symbicort 160-4.5 Mcg Inhaler] Clopidogrel [Plavix] 75 mg PO DAILY tab 04/20/22 Rx Ferrous Sulfate [Iron (65 MG 325 mg PO BID-W/MEALS tab 04/20/22 Rx Elemental)] Furosemide [Lasix] 20 mg PO DAILY tab 04/20/22 Rx INSULIN ASPART (NovoLOG) [NovoLOG 0 unit SQ ACHS each 04/20/22 Rx (formulary)] INSULIN ASPART (NovoLOG) [NovoLOG 9 unit SQ AC-TID each 04/20/22 Rx (formulary)] Insulin Detemir (Levemir) [Levemir] 18 unit SQ DAILY@0700 each 04/20/22 Rx Insulin Detemir (Levemir) [Levemir] 18 unit SQ HS each 04/20/22 Rx Ipratropium-Albuterol Nebulize 3 ml INHALATION RT-Q2H PRN each 04/20/22 Rx [Duoneb 0.5 mg-3 mg/3 ml Soln] Ipratropium-Albuterol Nebulize 3 ml INHALATION RT-QID each 04/20/22 Rx [Duoneb 0.5 mg-3 mg/3 ml Soln] Magnesium Hydroxide [Milk of 2,400 mg PO BID PRN ml 04/20/22 Rx Magnesia Concentrate] Metoprolol Tartrate [Lopressor] 25 mg PO BID tab 04/20/22 Rx Pantoprazole [Protonix] 40 mg PO AC-BID tab 04/20/22 Rx Sennosides-Docusate Sodium 2 each PO HS tab 04/20/22 Rx [Senokot-S] Spironolactone [Aldactone] 25 mg PO DAILY #30 tablet 04/20/22 Rx Tamsulosin [Flomax] 0.4 mg PO PC-SUPPER cap 04/20/22 Rx bisacodyL [Dulcolax] 10 mg RECTAL DAILY PRN suppositor 04/20/22 Rx guaiFENesin [Mucinex] 1,200 mg PO Q12HR tab 04/20/22 Rx Allergies Allergy/AdvReac Type Severity Reaction Status Date / Time Penicillins Allergy Rash/Hives Verified 04/01/22 14:51 Physical Exam Vitals: Vital Signs Temp Pulse Resp BP Pulse Ox FiO2 04/21/22 11:18 101 H 25 H 04/21/22 11:06 99 25 H 04/21/22 10:52 100 04/21/22 10:41 100 04/21/22 09:00 98 25 H 130/46 91 L 65 04/21/22 08:17 95 23 04/21/22 08:03 94 25 H 04/21/22 08:02 65 04/21/22 08:00 100.7 F H 94 25 H 133/50 94 L 65 04/21/22 07:53 65 04/21/22 07:00 91 24 110/44 97 65 04/21/22 06:03 65 04/21/22 06:00 86 20 125/41 93 L 04/21/22 05:23 65 04/21/22 05:00 82 20 121/43 97 04/21/22 04:00 98.7 F 79 22 121/42 97 90 04/21/22 03:18 75 04/21/22 03:00 98.8 F 78 24 119/48 98 90 04/21/22 02:00 76 21 119/45 100 04/21/22 01:00 73 20 118/39 100 04/21/22 00:02 76 25 H 113/46 100 04/21/22 00:00 71 22 116/47 100 90 04/20/22 23:43 90 04/20/22 23:00 86 25 H 113/43 100 04/20/22 22:42 98.6 F 84 24 119/49 100 04/20/22 22:22 98.6 F 84 24 127/51 100 04/20/22 22:10 99.3 F 95 21 134/52 99 04/20/22 22:00 99.3 F 125 H 27 H 97/49 99 100 04/20/22 21:00 106 H 24 98/48 96 04/20/22 20:54 100 04/20/22 20:45 100 04/20/22 20:00 99.5 F 87 28 H 83/45 92 L 80 04/20/22 19:49 98.7 F 89 27 H 83/45 04/20/22 19:29 98.4 F 89 27 H 80/48 92 L 04/20/22 19:23 99.5 F 92 28 H 98/56 92 L 04/20/22 19:14 80 04/20/22 19:00 92 30 H 98/44 85 L 04/20/22 18:46 84 04/20/22 18:35 84 04/20/22 18:00 96 30 H 99/51 89 L 04/20/22 17:00 92 24 113/55 91 L 04/20/22 16:00 90 26 H 113/55 94 L 04/20/22 15:00 81 25 H 95 04/20/22 14:00 76 24 100/52 95 Intake and Output 04/20/22 04/21/22 04/21/22 22:59 06:59 14:59 Intake Total 100.652 9196.851 754.871 Output Total 305 235 80 Balance 667.902 5095.851 674.871 Intake: IV 126 2621 309 0.9NS Pressure Bag 6 21 9 Dextrose 5% in Water 1, 600 300 000 ml @ 100 mls/hr IV . [id number] BRIDGET with Sodium Bicarb (1 Meq/ml) 150 ml Rx#:[id number] Sodium Chloride 0.9% 1, 120 2000 000 ml @ 20 mls/hr IV . Q24H [facility] Rx#:[id number] Intake, IV Titration 75.216 734.851 445.871 Amount Cefepime 2 gm In Sodium 100 Chloride 0.9% 100 ml @ 25 mls/hr IVPB Q12H [facility] Rx# :[id number] Norepinephrine 4 mg In 66.891 381.115 355.739 Sodium Chloride 0.9% 250 ml @ 0.03 MCG/KG/MIN 12. 687 mls/hr IV .Q20H2M [facility] Rx#:[id number] metroNIDAZOLE-NS PMX 500 100 mg In Saline 1 100ml.bag @ 100 mls/hr IVPB Q6H [facility] Rx#:[id number] propofoL 1,000 mg In 8.325 153.736 90.132 Empty Bag 1 bag @ 15 MCG/ KG/MIN 9.99 mls/hr IV . Q10H1M [facility] Rx#:[id number] Blood Product 310 Rc As-1 Unit 0 [id number] Rc As-1 Unit 310 [id number] Output: Urine 305 235 80 Other: Voiding Method Indwelling Catheter Indwelling Catheter # Bowel Movements 2 Weight 111.3 kg ABP, PAP, CO, CI - Last 8 Hours Arterial Blood Pressure 116/42 Arterial Blood Pressure 115/38 Arterial Blood Pressure 127/43 Arterial Blood Pressure 108/60 GENERAL DESCRIPTION: Elderly male intubated on the vent, no distress. No tachypnea or accessory muscle of respiration use. HEENT: Shows Pallor , no scleral icterus. Patient is orally intubated NECK: Trachea central, no thyromegaly. LUNGS: Unlabored breathing. Decreased breath sounds at the bases. HEART: S1, S2, regular rate and rhythm. No loud murmur ABDOMEN: Soft, no tenderness , guarding or rigidity, no organomegaly EXTREMITIES: No edema of feet. SKIN: No rash, no masses palpable. NEUROLOGICAL: The patient is sedated on the vent Results CBC & Chem 7: 04/22/22 08:23 04/22/22 08:23 Labs: Abnormal Lab Results - Last 24 Hours (Table) 04/20/22 04/20/22 04/20/22 Range/Units 17:03 17:08 17:09 WBC 22.9 H (3.8-10.6) k/uL RBC 2.81 L (4.30-5.90) m/uL Hgb 7.1 L (13.0-17.5) gm/dL Hct 22.9 L (39.0-53.0) % MCHC 30.9 L (31.0-37.0) g/dL RDW 19.3 H (11.5-15.5) % Neutrophils # (1.3-7.7) k/uL Neutrophils # (Manual) (1.3-7.7) k/uL Monocytes # (0-1.0) k/uL Monocytes # (Manual) (0-1.0) k/uL Myelocytes # (Manual) (0) k/uL Nucleated RBCs (0-0) /100 WBC PT (9.0-12.0) sec INR (<1.2) APTT 41.5 H (22.0-30.0) sec ABG pH (7.35-7.45) ABG pCO2 (35-45) mmHg ABG pO2 (83-108) mmHg ABG HCO3 (21-25) mmol/L ABG Total CO2 (19-24) mmol/L ABG O2 Saturation (94-97) % ABG Lactic Acid (0.5-1.6) mmol/L Sodium (137-145) mmol/L Potassium (3.5-5.1) mmol/L Carbon Dioxide (22-30) mmol/L BUN (9-20) mg/dL Creatinine (0.66-1.25) mg/dL Glucose (74-99) mg/dL POC Glucose (mg/dL) (70-110) mg/dL Plasma Lactic Acid Tashi (0.7-2.0) mmol/L Calcium (8.4-10.2) mg/dL Ionized Calcium Gage (4.5-5.3) mg/dL Total Bilirubin (0.2-1.3) mg/dL AST (17-59) U/L ALT (4-49) U/L Alkaline Phosphatase (38-126) U/L Total Protein (6.3-8.2) g/dL Albumin (3.5-5.0) g/dL Crossmatch See Detail 04/20/22 04/20/22 04/20/22 Range/Units 17:26 19:52 19:58 WBC (3.8-10.6) k/uL RBC (4.30-5.90) m/uL Hgb (13.0-17.5) gm/dL Hct (39.0-53.0) % MCHC (31.0-37.0) g/dL RDW (11.5-15.5) % Neutrophils # (1.3-7.7) k/uL Neutrophils # (Manual) (1.3-7.7) k/uL Monocytes # (0-1.0) k/uL Monocytes # (Manual) (0-1.0) k/uL Myelocytes # (Manual) (0) k/uL Nucleated RBCs (0-0) /100 WBC PT (9.0-12.0) sec INR (<1.2) APTT (22.0-30.0) sec ABG pH 7.27 L (7.35-7.45) ABG pCO2 27 L (35-45) mmHg ABG pO2 77 L (83-108) mmHg ABG HCO3 12 L (21-25) mmol/L ABG Total CO2 13 L (19-24) mmol/L ABG O2 Saturation (94-97) % ABG Lactic Acid (0.5-1.6) mmol/L Sodium (137-145) mmol/L Potassium (3.5-5.1) mmol/L Carbon Dioxide (22-30) mmol/L BUN (9-20) mg/dL Creatinine (0.66-1.25) mg/dL Glucose (74-99) mg/dL POC Glucose (mg/dL) 131 H 128 H (70-110) mg/dL Plasma Lactic Acid Tashi (0.7-2.0) mmol/L Calcium (8.4-10.2) mg/dL Ionized Calcium Gage (4.5-5.3) mg/dL Total Bilirubin (0.2-1.3) mg/dL AST (17-59) U/L ALT (4-49) U/L Alkaline Phosphatase (38-126) U/L Total Protein (6.3-8.2) g/dL Albumin (3.5-5.0) g/dL Crossmatch 04/20/22 04/20/22 04/20/22 Range/Units 21:16 21:16 21:21 WBC 36.8 H (3.8-10.6) k/uL RBC 2.84 L (4.30-5.90) m/uL Hgb 7.4 L (13.0-17.5) gm/dL Hct 24.3 L (39.0-53.0) % MCHC 30.3 L (31.0-37.0) g/dL RDW 18.4 H (11.5-15.5) % Neutrophils # 32.9 H (1.3-7.7) k/uL Neutrophils # (Manual) (1.3-7.7) k/uL Monocytes # 1.5 H (0-1.0) k/uL Monocytes # (Manual) (0-1.0) k/uL Myelocytes # (Manual) (0) k/uL Nucleated RBCs (0-0) /100 WBC PT (9.0-12.0) sec INR (<1.2) APTT (22.0-30.0) sec ABG pH 7.21 L (7.35-7.45) ABG pCO2 (35-45) mmHg ABG pO2 (83-108) mmHg ABG HCO3 15 L (21-25) mmol/L ABG Total CO2 17 L (19-24) mmol/L ABG O2 Saturation (94-97) % ABG Lactic Acid (0.5-1.6) mmol/L Sodium 136 L (137-145) mmol/L Potassium 5.2 H (3.5-5.1) mmol/L Carbon Dioxide 14 L (22-30) mmol/L BUN 41 H (9-20) mg/dL Creatinine 1.97 H (0.66-1.25) mg/dL Glucose (74-99) mg/dL POC Glucose (mg/dL) (70-110) mg/dL Plasma Lactic Acid Tashi (0.7-2.0) mmol/L Calcium 7.0 L (8.4-10.2) mg/dL Ionized Calcium Gage (4.5-5.3) mg/dL Total Bilirubin (0.2-1.3) mg/dL AST 814 H (17-59) U/L ALT 263 H (4-49) U/L Alkaline Phosphatase 211 H (38-126) U/L Total Protein 4.7 L (6.3-8.2) g/dL Albumin 2.4 L (3.5-5.0) g/dL Crossmatch 04/20/22 04/20/22 04/21/22 Range/Units 21:50 22:15 02:26 WBC (3.8-10.6) k/uL RBC (4.30-5.90) m/uL Hgb (13.0-17.5) gm/dL Hct (39.0-53.0) % MCHC (31.0-37.0) g/dL RDW (11.5-15.5) % Neutrophils # (1.3-7.7) k/uL Neutrophils # (Manual) (1.3-7.7) k/uL Monocytes # (0-1.0) k/uL Monocytes # (Manual) (0-1.0) k/uL Myelocytes # (Manual) (0) k/uL Nucleated RBCs (0-0) /100 WBC PT (9.0-12.0) sec INR (<1.2) APTT (22.0-30.0) sec ABG pH (7.35-7.45) ABG pCO2 (35-45) mmHg ABG pO2 (83-108) mmHg ABG HCO3 (21-25) mmol/L ABG Total CO2 (19-24) mmol/L ABG O2 Saturation (94-97) % ABG Lactic Acid 11.0 H* (0.5-1.6) mmol/L Sodium (137-145) mmol/L Potassium (3.5-5.1) mmol/L Carbon Dioxide (22-30) mmol/L BUN (9-20) mg/dL Creatinine (0.66-1.25) mg/dL Glucose (74-99) mg/dL POC Glucose (mg/dL) 117 H 118 H (70-110) mg/dL Plasma Lactic Acid Tashi (0.7-2.0) mmol/L Calcium (8.4-10.2) mg/dL Ionized Calcium Gage (4.5-5.3) mg/dL Total Bilirubin (0.2-1.3) mg/dL AST (17-59) U/L ALT (4-49) U/L Alkaline Phosphatase (38-126) U/L Total Protein (6.3-8.2) g/dL Albumin (3.5-5.0) g/dL Crossmatch 04/21/22 04/21/22 04/21/22 Range/Units 04:07 04:07 04:07 WBC 35.1 H (3.8-10.6) k/uL RBC 2.95 L (4.30-5.90) m/uL Hgb 8.0 L (13.0-17.5) gm/dL Hct 24.8 L (39.0-53.0) % MCHC (31.0-37.0) g/dL RDW 18.4 H (11.5-15.5) % Neutrophils # (1.3-7.7) k/uL Neutrophils # (Manual) 32.20 H (1.3-7.7) k/uL Monocytes # (0-1.0) k/uL Monocytes # (Manual) 1.05 H (0-1.0) k/uL Myelocytes # (Manual) 0.70 H (0) k/uL Nucleated RBCs 1 H (0-0) /100 WBC PT (9.0-12.0) sec INR (<1.2) APTT (22.0-30.0) sec ABG pH (7.35-7.45) ABG pCO2 (35-45) mmHg ABG pO2 (83-108) mmHg ABG HCO3 (21-25) mmol/L ABG Total CO2 (19-24) mmol/L ABG O2 Saturation (94-97) % ABG Lactic Acid (0.5-1.6) mmol/L Sodium 136 L (137-145) mmol/L Potassium (3.5-5.1) mmol/L Carbon Dioxide 21 L (22-30) mmol/L BUN 45 H (9-20) mg/dL Creatinine 1.68 H (0.66-1.25) mg/dL Glucose 135 H (74-99) mg/dL POC Glucose (mg/dL) (70-110) mg/dL Plasma Lactic Acid Tashi 7.3 H* (0.7-2.0) mmol/L Calcium 6.1 L* (8.4-10.2) mg/dL Ionized Calcium Gage (4.5-5.3) mg/dL Total Bilirubin 1.7 H (0.2-1.3) mg/dL AST 3741 H (17-59) U/L ALT 1106 H (4-49) U/L Alkaline Phosphatase 187 H (38-126) U/L Total Protein 4.1 L (6.3-8.2) g/dL Albumin 2.0 L (3.5-5.0) g/dL Crossmatch 04/21/22 04/21/22 04/21/22 Range/Units 05:47 06:32 09:00 WBC (3.8-10.6) k/uL RBC (4.30-5.90) m/uL Hgb (13.0-17.5) gm/dL Hct (39.0-53.0) % MCHC (31.0-37.0) g/dL RDW (11.5-15.5) % Neutrophils # (1.3-7.7) k/uL Neutrophils # (Manual) (1.3-7.7) k/uL Monocytes # (0-1.0) k/uL Monocytes # (Manual) (0-1.0) k/uL Myelocytes # (Manual) (0) k/uL Nucleated RBCs (0-0) /100 WBC PT (9.0-12.0) sec INR (<1.2) APTT (22.0-30.0) sec ABG pH (7.35-7.45) ABG pCO2 30 L (35-45) mmHg ABG pO2 64 L (83-108) mmHg ABG HCO3 (21-25) mmol/L ABG Total CO2 (19-24) mmol/L ABG O2 Saturation 93.7 L (94-97) % ABG Lactic Acid (0.5-1.6) mmol/L Sodium (137-145) mmol/L Potassium (3.5-5.1) mmol/L Carbon Dioxide (22-30) mmol/L BUN (9-20) mg/dL Creatinine (0.66-1.25) mg/dL Glucose (74-99) mg/dL POC Glucose (mg/dL) 169 H (70-110) mg/dL Plasma Lactic Acid Tashi (0.7-2.0) mmol/L Calcium (8.4-10.2) mg/dL Ionized Calcium Gage 3.7 L (4.5-5.3) mg/dL Total Bilirubin (0.2-1.3) mg/dL AST (17-59) U/L ALT (4-49) U/L Alkaline Phosphatase (38-126) U/L Total Protein (6.3-8.2) g/dL Albumin (3.5-5.0) g/dL Crossmatch 04/21/22 04/21/22 04/21/22 Range/Units 09:00 09:21 11:41 WBC (3.8-10.6) k/uL RBC (4.30-5.90) m/uL Hgb (13.0-17.5) gm/dL Hct (39.0-53.0) % MCHC (31.0-37.0) g/dL RDW (11.5-15.5) % Neutrophils # (1.3-7.7) k/uL Neutrophils # (Manual) (1.3-7.7) k/uL Monocytes # (0-1.0) k/uL Monocytes # (Manual) (0-1.0) k/uL Myelocytes # (Manual) (0) k/uL Nucleated RBCs (0-0) /100 WBC PT 13.4 H (9.0-12.0) sec INR 1.3 H (<1.2) APTT 33.1 H (22.0-30.0) sec ABG pH (7.35-7.45) ABG pCO2 32 L (35-45) mmHg ABG pO2 62 L (83-108) mmHg ABG HCO3 20 L (21-25) mmol/L ABG Total CO2 (19-24) mmol/L ABG O2 Saturation 91.5 L (94-97) % ABG Lactic Acid (0.5-1.6) mmol/L Sodium (137-145) mmol/L Potassium (3.5-5.1) mmol/L Carbon Dioxide (22-30) mmol/L BUN (9-20) mg/dL Creatinine (0.66-1.25) mg/dL Glucose (74-99) mg/dL POC Glucose (mg/dL) 145 H (70-110) mg/dL Plasma Lactic Acid Tashi (0.7-2.0) mmol/L Calcium (8.4-10.2) mg/dL Ionized Calcium Agge (4.5-5.3) mg/dL Total Bilirubin (0.2-1.3) mg/dL AST (17-59) U/L ALT (4-49) U/L Alkaline Phosphatase (38-126) U/L Total Protein (6.3-8.2) g/dL Albumin (3.5-5.0) g/dL Crossmatch 04/21/22 04/21/22 04/21/22 Range/Units 11:50 11:50 11:50 WBC 42.1 H (3.8-10.6) k/uL RBC 2.56 L (4.30-5.90) m/uL Hgb 7.0 L (13.0-17.5) gm/dL Hct 22.2 L (39.0-53.0) % MCHC (31.0-37.0) g/dL RDW 18.4 H (11.5-15.5) % Neutrophils # (1.3-7.7) k/uL Neutrophils # (Manual) (1.3-7.7) k/uL Monocytes # (0-1.0) k/uL Monocytes # (Manual) (0-1.0) k/uL Myelocytes # (Manual) (0) k/uL Nucleated RBCs (0-0) /100 WBC PT (9.0-12.0) sec INR (<1.2) APTT (22.0-30.0) sec ABG pH (7.35-7.45) ABG pCO2 (35-45) mmHg ABG pO2 (83-108) mmHg ABG HCO3 (21-25) mmol/L ABG Total CO2 (19-24) mmol/L ABG O2 Saturation (94-97) % ABG Lactic Acid (0.5-1.6) mmol/L Sodium 136 L (137-145) mmol/L Potassium (3.5-5.1) mmol/L Carbon Dioxide 17 L (22-30) mmol/L BUN 45 H (9-20) mg/dL Creatinine 2.00 H (0.66-1.25) mg/dL Glucose 123 H (74-99) mg/dL POC Glucose (mg/dL) (70-110) mg/dL Plasma Lactic Acid Tashi 11.4 H* (0.7-2.0) mmol/L Calcium 6.0 L* (8.4-10.2) mg/dL Ionized Calcium Gage (4.5-5.3) mg/dL Total Bilirubin (0.2-1.3) mg/dL AST (17-59) U/L ALT 999 H (4-49) U/L Alkaline Phosphatase 167 H (38-126) U/L Total Protein 3.7 L (6.3-8.2) g/dL Albumin 1.8 L (3.5-5.0) g/dL Crossmatch 04/21/22 04/21/22 Range/Units 12:04 12:19 WBC (3.8-10.6) k/uL RBC (4.30-5.90) m/uL Hgb (13.0-17.5) gm/dL Hct (39.0-53.0) % MCHC (31.0-37.0) g/dL RDW (11.5-15.5) % Neutrophils # (1.3-7.7) k/uL Neutrophils # (Manual) (1.3-7.7) k/uL Monocytes # (0-1.0) k/uL Monocytes # (Manual) (0-1.0) k/uL Myelocytes # (Manual) (0) k/uL Nucleated RBCs (0-0) /100 WBC PT (9.0-12.0) sec INR (<1.2) APTT (22.0-30.0) sec ABG pH 7.19 L* (7.35-7.45) ABG pCO2 (35-45) mmHg ABG pO2 70 L 79 L (83-108) mmHg ABG HCO3 16 L (21-25) mmol/L ABG Total CO2 17 L 27 H (19-24) mmol/L ABG O2 Saturation 89.1 L (94-97) % ABG Lactic Acid (0.5-1.6) mmol/L Sodium (137-145) mmol/L Potassium (3.5-5.1) mmol/L Carbon Dioxide (22-30) mmol/L BUN (9-20) mg/dL Creatinine (0.66-1.25) mg/dL Glucose (74-99) mg/dL POC Glucose (mg/dL) (70-110) mg/dL Plasma Lactic Acid Tashi (0.7-2.0) mmol/L Calcium (8.4-10.2) mg/dL Ionized Calcium Gage (4.5-5.3) mg/dL Total Bilirubin (0.2-1.3) mg/dL AST (17-59) U/L ALT (4-49) U/L Alkaline Phosphatase (38-126) U/L Total Protein (6.3-8.2) g/dL Albumin (3.5-5.0) g/dL Crossmatch Microbiology - Last 24 Hours (Table) 04/20/22 23:57 Sputum Culture - Preliminary Sputum Assessment and Plan (1) Sepsis Current Visit: Yes Status: Acute Code(s): A41.9 - SEPSIS, UNSPECIFIED ORGANISM SNOMED Code(s): 59905028 (2) Leukocytosis Current Visit: Yes Status: Acute Code(s): D72.829 - ELEVATED WHITE BLOOD CELL COUNT, UNSPECIFIED SNOMED Code(s): 513120606 Plan: 1patient with a leukocytosis which is likely multifactorial in this patient admitted to hospital about 10 days ago for coronary bypass grafting patient did have a large bright red blood per rectum last evening subsequently hemodynamic instability requiring intubation did have a V. tach with resuscitation and respiratory failure consult for possible abdominal source versus pneumonia or reactive to his GI bleed. 2-penicillin allergy that would limit the number of antibiotic 3obtain stool for C. difficile and will treat if positive 4obtain sputum for gram stain culture and we will follow on the blood culture already obtained 5continue with the cefepime and Flagyl We will follow on clinical condition and cultures to further adjust medication if needed Thank you for this consultation will follow this patient along with you Family at the bedside questions concerns answered Time with Patient: Greater than 30
--- NOTE | 2022-04-22 09:05 | XR ---
EXAMINATION TYPE: XR chest 1V portable DATE OF EXAM: 04/22/2022 Comparison: 04/21/2022 Clinical History: 77-year-old male Tube placement Findings: Right IJ CVC tip cavoatrial junction. ET tube satisfactory. NG tube courses down the on the field of view. Median sternotomy wires and plate and screw fixation with posterior clips. Heart upper limits o f normal in size. Similar to increasing bibasilar opacities. Impression: Similar to increasing small to moderate bilateral pleural effusions with adjacent atelectasis and/or consolidation.
[2022-04-22 09:17] LABS: Glucose,Whole Blood 154 mg/dL (70-110)
[2022-04-22 09:22] LABS: Anisocytosis Slight; HCT 30.6 % (39.0-53.0); Hypochromasia Moderate; MCV 85.8 fL (80.0-100.0); Mean Platelet Volume 8.1; Platelet Count 420 k/uL (150-450); Poikilocytosis Moderate; RBC 3.57 m/uL (4.30-5.90); RDW 17.3 % (11.5-15.5)
[2022-04-22 09:24] LABS: HGB 9.8 gm/dL (13.0-17.5); MCH 27.3 pg (25.0-35.0); MCHC 32.1 g/dL (31.0-37.0)
[2022-04-22 09:41] VITALS: RESP 28
--- NOTE | 2022-04-22 09:43 | P.PN ---
Subjective Progress Note Date: 04/22/22 On 04/18/2022, the patient is being seen for a follow-up. The patient is currently postop day #7 vessel bypass surgery. The patient also has COPD, hypertension, hyperlipidemia, insulin-dependent diabetes mellitus, liver cirrhosis, bronchial asthma, Leonard's esophagus, peripheral vascular disease, history of melanoma and history of iron deficiency in addition to history of depression and history of tremors. His recovered has been essentially slow. After extubation, the patient required BiPAP for respiratory support and subsequently was transitioned to high flow oxygen and currently is on oxygen at 15 L high flow. Most recent chest x-ray shows cardiomegaly, atelectatic changes in the right lung base and small bilateral pleural effusions. Surgical 1 site is dry clean and intact. No airspace disease or consolidations noted on the most recent chest x-ray. The patient oxygen flow is at 15 L with a pulse ox of 95%. At the same time, the patient is receiving diuretics on a daily basis and he was switched to Lasix 20 mg by mouth daily. His fluid balance has been negative to liters on 04/16/2022 and since then she she has been in mild positive fluid balance. He has developed an acute kidney injury. Creatinine today is at 1.4 with a BUN of 43 and a sodium is at 135. Liver function tests are normal. The white cell count is at 11.9 with a hemoglobin of 7.4 platelet count of 170. Blood sugars have been under adequate control and the patient is currently on Levemir insulin 18 units at bedtime and 18 units in the morning and he is also taken a sliding scale coverage. For his still has a Woods catheter in place. Chest tubes have been removed to. Pulmonary case have been resumed. He is on aspirin and Plavix. Is also on amiodarone for prophylactic reasons. He is currently on oral iron. He is on metoprolol 25 mg by mouth twice a day as beta blockers and is also on statins. On 04/19/2022, the patient is being seen for a follow-up. On today's evaluation, the patient has been weaned down to 6 L of oxygen by nasal cannula. The patient using incentive spirometer and pulling approximately 1000. The patient has no specific complaints. No significant cough or sputum production. No chest tightness. No wheezing. He has multiple comorbidities as discussed earlier. The patient is postop day #8. Note that the patient underwent four- vessel bypass surgery. On yesterday's evaluation, the patient was quite hypoxic and his oxygenation improved. He is on bronchodilators. He is on Symbicort as maintenance for now. He is on Levemir insulin for blood sugar control at a dose of 18 units in the evening and 9 units of NovoLog 3 times a day. He is on Lasix orally 20 mg by mouth daily. IV fluids are currently at KVO. On his blood work, the white cell count at 16 with a hemoglobin of 7.7, his sodium level of 136, potassium is 4, chloride is 105, bicarb is 24, BUN is 47 and a creatinine is at 1.4. The chest x-ray from today shows small bilateral pleural effusion and patchy infiltration lung bases. Pneumonia is doubtful. Patient is awake and alert and moving all extremities and following commands without any limitation. On today's evaluation of 04/20/2022, I'm seeing the patient for a follow-up. The patient essentially the same condition. He remains on 6 L of O2 nasal cannula. The patient is quite weak and he is going to go to rehabilitation. Meanwhile, I reviewed the chest x-ray and I was concerned that the patient may have an underlying pleural effusion. Based on that, although some of the chest was done and the patient was found to have a sizable fluid on the left and the patient was given a thoracentesis with a total of 300 mL of fluid was aspirated from the left lung without any major difficulties. The patient for now is doing well. He is awaiting to be transferred to [facility]. He is on Lasix 20 mg by mouth daily. Is on Levemir insulin. Rest of the medications remain unchanged. The chest x-rays was done following the thoracentesis showed small pleural effusion without any signs of a pneumothorax and the patient continued to have a mild central pulmonary vessel congestion. Hemodynamically stable. Cardiac rhythm is sinus. On 04/21/2022, the patient is doing very poor. Events from yesterday were noted. Note that by late afternoon, patient started having episode of GI bleed. The patient drop in hemoglobin and the patient became hemodynamically unstable and incentive the patient became progressively more acidotic, obtunded, lethargic and weak. At that point, suspicion regarding GI bleed was started. The patient was having bloody output from his rectum all patient and clots were also present. the patient had several episodes of GI bleed. During the course, the patient was assisted left fluids and the patient was given a total of 2 L of IV fluids with normal saline, 2 units of packed RBCs and the patient was also started on pressors. Subsequently, the patient was intubated and placed on a mechanical ventilator. Lactic acid level was as high as 11 and during the resuscitation process, the lactic acid gradually improved. The patient did have a run of V. tach also spontaneously recovered during the resuscitation process. Note that, overnight, the patient was kept intubated on a mechanical ventilator. This morning, he remains on propofol and this was at 35 microvascular kilogram per minute. The patient was assist-control mode of mechanical ventilation. The rate was 24 with a tidal volume of 450 and FiO2 of 65% with a PEEP of 5. Morning blood gases showed a pH of 7.4 with a pCO2 of 32 and pO2 of 62. The liver function tests were elevated and the patient had shock liver. INR was at 1.3 with a PT of 15.4. The patient is on norepinephrine at 0.17 microvascular kilogram per minutes. The patient was also given bicarb overnight and the patient is currently on bicarb infusion at the rate of 100 mL an hour. Sodium is at 136, potassium is at 4.7, BUN is at 45 and a creatinine is at 1.6. The white cell count came up to 35 with a hemoglobin of 8 and a platelet count of 35. Based on all of these abnormal progression in abnormalities, the patient was suspected to have an ischemic colitis patient with an elevated lactic acid level and ongoing lower GI bleed. NG tube was not showing any bloody output. The patient was started on a combination of cefepime and Flagyl. The patient w as transferred to the CAT scan department and the patient underwent a CAT scan of the abdomen that showed atelectatic changes in consolidations in the lung bases with small effusions. There was no evidence of any acute intra-abdominal abnormalities. Abdomen remained soft. Sounds hypoactive. Furthermore, this morning, the patient became progressively more hypoxic. PT was gradually increased up to 18. The patient was given paralytics limited secondary to the mechanical ventilator. The patient's respiratory rate was increased up to 28. Tidal volume was increased up to 500. The patient subsequently had a cardiac arrest with V. tach. The patient received CPR. No defibrillation was done. This was quite brief. The patient was given more bicarb. Repeat labs were done. The most recent blood gas showing a pH of 7.38 with episodes of 43 and pO2 of 79. His white suppositive 40.7 with a hemoglobin of 7.0. Also, there is using level exercises showing a BUN of 45 with a creatinine of 2.0 and a sodium level is at 136. Lactic acid level is up to 11.4. LFTs remain abnormal including AST and ALP and both of them are on the rise. Amylase and lipase were normal. Calcium was low and the patient was given a total of 2 g of calcium gluconate. A triple-lumen catheter was established in the right IJ. On 04/22/2022, the patient is still very poor. He remains intubated on a mecha nical ventilator. He was paralyzed. He was also started on Bextra is running at 1 mg/kg/m and the patient is also on propofol running at 35 microvascular kilogram per minutes. The patient is well sedated and paralyzed and the patient is successfully mechanical ventilator. We aren't having some issues with oxygenation this morning. He is on assist-control mode at a rate of 28 with a tidal volume of 400 and FiO2 100% with a PEEP of 20. Blood gases from today shows a pH of 7.33 with a pCO2 of 44 and pO2 of 53. Based on that, I made some adjustments on the mechanical ventilator. Chest x-ray showing cardiomegaly, development of bilateral pleural effusion. ET tube is in a good location. There is also evidence of pulmonary vascular congestion. The patient is hemodynamically unstable and the patient is currently on physiologic dose of vasopressin 0.03 units an hour and the patient is also on norepinephrine at 0.16 mcg/kg/m. Urine output is in order of 10-20 mL an hour. At the same time, the patient is a bicarb infusion. The patient's most recent lactic acid level is still elevated at 12.1. He has shock liver. He'll and AST are considerably elevated. At the same time, the patient has a white cell count of 38 with a hemoglobin of 9.8 and a platelet count of 420. Creatinine today is up to 2.2 with a BUN of 53 and a sodium level of 138. Noted the patient is also on jay chaney drip as the patient was having episodes of ventricular tachycardia. Lidocaine drip is running at 2 mg/m. Family is at the bedside. Had a lengthy discussion with the family in the presence of a 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 and general surgery. The patient's was switched to a DNR/DNI CODE STATUS. His pro calcitonin level is elevated and the patient remains on a combination of cefepime and Flagyl. He was also given a dose of vancomycin yesterday. He is on a pain she is on insulin drip which is running at 2 units an hour. Objective - Vital Signs Vital signs: Vital Signs Temp 98.1 F 04/22/22 04:00 Pulse 105 H 04/22/22 08:45 Resp 11 L 04/22/22 08:45 BP 137/61 04/22/22 08:45 Pulse Ox 82 L 04/22/22 08:45 FiO2 100 04/22/22 07:21 Intake & Output 04/21/22 04/22/22 04/22/22 18:59 06:59 18:59 Intake Total 4394.479 2772.430 365.434 Output Total 295 285 58 Balance 4099.479 2487.430 307.434 Weight 113.1 kg Intake: IV 2707 372 118 0.9NS Pressure Bag 57 72 18 Calcium Gluconate in NaCl 100 2 gm In Saline 1 100ml. bag @ 100 mls/hr IVPB ONCE ONE Rx#:[id number] Cefepime 2 gm In Sodium 100 Chloride 0.9% 100 ml @ 25 mls/hr IVPB Q12H [facility] Rx# :[id number] Dextrose 5% in Water 1, 1200 300 100 000 ml @ 100 mls/hr IV . [id number] [facility] with Sodium Bicarb (1 Meq/ml) 150 ml Rx#:[id number] Sodium Chloride 0.9% 1, 1000 000 ml @ 999 mls/hr IV . Q1H1M ONE Rx#:[id number] Vancomycin 1,000 mg In 250 Sodium Chloride 0.9% 250 ml @ 125 mls/hr IVPB ONCE STA Rx#:[id number] Intake, IV Titration 630.394 2715.430 247.434 Amount Calcium Gluconate in NaCl 100 1 gm In Saline 1 100ml. bag @ 100 mls/hr IVPB ONCE ONE Rx#:[id number] Cisatracurium 200 mg In 33.39 81.694 Sodium Chloride 0.9% 180 ml @ 2 MCG/KG/MIN 13.356 mls/hr IV .[id number] [facility] Rx #:[id number] Dextrose 5% in Water 1, 800 200 000 ml @ 100 mls/hr IV . [id number] [facility] with Sodium Bicarb (1 Meq/ml) 150 ml Rx#:[id number] Insulin Regular 100 unit 5.647 21.193 25.216 In Sodium Chloride 0.9% 100 ml @ Per Protocol IV .Q0M [facility] Rx#:[id number] Lidocaine-D5w Pmx 2G/ 201 250Ml 2,000 mg In Dextrose/Water 1 250ml. bag @ 2 MG/MIN 15 mls/hr IV .[id number] [facility] Rx#: [id number] Norepinephrine 32 mg In 48.588 230.869 22.218 Sodium Chloride 0.9% 218 ml @ 0.03 MCG/KG/MIN 1. 565 mls/hr IV .Q24H [facility] Rx#:[id number] Norepinephrine 4 mg In 355.739 Sodium Chloride 0.9% 250 ml @ 0.03 MCG/KG/MIN 12. 687 mls/hr IV .Q20H2M [facility] Rx#:[id number] Vasopressin 60 unit In 99.986 Sodium Chloride 0.9% 150 ml @ 0.04 UNITS/MIN 6.12 mls/hr IV .Q24H [facility] Rx#: [id number] propofoL 1,000 mg In 273.115 Empty Bag 1 bag @ 15 MCG/ KG/MIN 9.99 mls/hr IV . Q10H1M [facility] Rx#:[id number] propofoL 1,000 mg In 245.688 Empty Bag 1 bag @ 15 MCG/ KG/MIN 9.99 mls/hr IV . Q10H1M [facility] Rx#:[id number] Blood Product 721 620 Platelet Pheresis Pas 361 Psoralen Unit [id number] As-1 Unit 310 [id number] Rc As-1 Unit 310 [id number] Albumin 250 Albumin Human 5% 250 ml @ 250 0 mls/hr IVPB .STK-MED ONE Rx#:[id number] Output: Urine 295 285 58 Other: Voiding Method Indwelling Catheter Indwelling Catheter # Bowel Movements 1 0 ABP, PAP, CO, CI - Last Documented Arterial Blood Pressure 130/47 Pulmonary Artery Pressure 38/5 Cardiac Output 5.5 Cardiac Index 2.5 - Exam Patient is currently sedated on propofol and intubated on a mechanical ventilator and the patient is also paralyzed with Nimbex. Head exam was generally normal. There was no scleral icterus or corneal arcus. Mucous membranes were moist. HEENT examination is grossly unremarkable. The patient has a right IJ triple-lumen catheter in place. Neck supple. Full range of motion. No adenopathy thyromegaly or neck vein d istention. Cardiovascular examination reveals regular rhythm rate. S1-S2 normal. No S3 or S4. No discernible murmur noted. Heart sounds are distant. Lungs reveal scattered bibasilar crackles, and diffuse coarse rhonchi. His cough is wet and congested. No wheezes. Abdomen soft bowel No masses or tenderness. Bowel sounds are absent and there is no direct tenderness or rebound tenderness or guarding at this point in time. Extremities are intact. No cyanosis or clubbing. Trace edema present. Skin is without rash or lesion. Neurologic examination is brief but nonfocal. The patient is currently sedated and paralyzed. - Labs CBC & Chem 7: 04/22/22 08:23 04/22/22 04:00 Labs: Abnormal Lab Results - Last 24 Hours (Table) 04/20/22 04/21/22 04/21/22 Range/Units 17:09 09:00 09:00 WBC (3.8-10.6) k/uL RBC (4.30-5.90) m/uL Hgb (13.0-17.5) gm/dL Hct (39.0-53.0) % RDW (11.5-15.5) % Neutrophils # (Manual) (1.3-7.7) k/uL Monocytes # (Manual) (0-1.0) k/uL Metamyelocytes # (Man) (0) k/uL Myelocytes # (Manual) (0) k/uL Nucleated RBCs (0-0) /100 WBC PT 13.4 H (9.0-12.0) sec INR 1.3 H (<1.2) APTT 33.1 H (22.0-30.0) sec ABG pH (7.35-7.45) ABG pO2 (83-108) mmHg ABG HCO3 (21-25) mmol/L ABG Total CO2 (19-24) mmol/L ABG O2 Saturation (94-97) % Sodium (137-145) mmol/L Carbon Dioxide (22-30) mmol/L BUN (9-20) mg/dL Creatinine (0.66-1.25) mg/dL Glucose (74-99) mg/dL POC Glucose (mg/dL) (70-110) mg/dL Plasma Lactic Acid Tashi (0.7-2.0) mmol/L Calcium (8.4-10.2) mg/dL Ionized Calcium Gage 3.7 L (4.5-5.3) mg/dL Total Bilirubin (0.2-1.3) mg/dL AST (17-59) U/L ALT (4-49) U/L Alkaline Phosphatase (38-126) U/L C-Reactive Protein (<1.0) mg/dL Total Protein (6.3-8.2) g/dL Albumin (3.5-5.0) g/dL Procalcitonin (0.02-0.09) ng/mL Crossmatch See Detail 04/21/22 04/21/22 04/21/22 Range/Units 11:41 11:50 11:50 WBC 40.9 H (3.8-10.6) k/uL RBC 2.56 L (4.30-5.90) m/uL Hgb 7.0 L (13.0-17.5) gm/dL Hct 22.2 L (39.0-53.0) % RDW 18.4 H (11.5-15.5) % Neutrophils # (Manual) 37.63 H (1.3-7.7) k/uL Monocytes # (Manual) 1.23 H (0-1.0) k/uL Metamyelocytes # (Man) (0) k/uL Myelocytes # (Manual) (0) k/uL Nucleated RBCs 3 H (0-0) /100 WBC PT (9.0-12.0) sec INR (<1.2) APTT (22.0-30.0) sec ABG pH (7.35-7.45) ABG pO2 (83-108) mmHg ABG HCO3 (21-25) mmol/L ABG Total CO2 (19-24) mmol/L ABG O2 Saturation (94-97) % Sodium (137-145) mmol/L Carbon Dioxide (22-30) mmol/L BUN (9-20) mg/dL Creatinine (0.66-1.25) mg/dL Glucose (74-99) mg/dL POC Glucose (mg/dL) 145 H (70-110) mg/dL Plasma Lactic Acid Tashi 11.4 H* (0.7-2.0) mmol/L Calcium (8.4-10.2) mg/dL Ionized Calcium Gage (4.5-5.3) mg/dL Total Bilirubin (0.2-1.3) mg/dL AST (17-59) U/L ALT (4-49) U/L Alkaline Phosphatase (38-126) U/L C-Reactive Protein (<1.0) mg/dL Total Protein (6.3-8.2) g/dL Albumin (3.5-5.0) g/dL Procalcitonin (0.02-0.09) ng/mL Crossmatch 04/21/22 04/21/22 04/21/22 Range/Units 11:50 12:04 12:19 WBC (3.8-10.6) k/uL RBC (4.30-5.90) m/uL Hgb (13.0-17.5) gm/dL Hct (39.0-53.0) % RDW (11.5-15.5) % Neutrophils # (Manual) (1.3-7.7) k/uL Monocytes # (Manual) (0-1.0) k/uL Metamyelocytes # (Man) (0) k/uL Myelocytes # (Manual) (0) k/uL Nucleated RBCs (0-0) /100 WBC PT (9.0-12.0) sec INR (<1.2) APTT (22.0-30.0) sec ABG pH 7.19 L* (7.35-7.45) ABG pO2 70 L 79 L (83-108) mmHg ABG HCO3 16 L (21-25) mmol/L ABG Total CO2 17 L 27 H (19-24) mmol/L ABG O2 Saturation 89.1 L (94-97) % Sodium 136 L (137-145) mmol/L Carbon Dioxide 17 L (22-30) mmol/L BUN 45 H (9-20) mg/dL Creatinine 2.00 H (0.66-1.25) mg/dL Glucose 123 H (74-99) mg/dL POC Glucose (mg/dL) (70-110) mg/dL Plasma Lactic Acid Tashi (0.7-2.0) mmol/L Calcium 6.0 L* (8.4-10.2) mg/dL Ionized Calcium Gage (4.5-5.3) mg/dL Total Bilirubin (0.2-1.3) mg/dL AST 3133 H (17-59) U/L ALT 999 H (4-49) U/L Alkaline Phosphatase 167 H (38-126) U/L C-Reactive Protein (<1.0) mg/dL Total Protein 3.7 L (6.3-8.2) g/dL Albumin 1.8 L (3.5-5.0) g/dL Procalcitonin (0.02-0.09) ng/mL Crossmatch 04/21/22 04/21/22 04/21/22 Range/Units 14:38 14:42 15:25 WBC (3.8-10.6) k/uL RBC (4.30-5.90) m/uL Hgb (13.0-17.5) gm/dL Hct (39.0-53.0) % RDW (11.5-15.5) % Neutrophils # (Manual) (1.3-7.7) k/uL Monocytes # (Manual) (0-1.0) k/uL Metamyelocytes # (Man) (0) k/uL Myelocytes # (Manual) (0) k/uL Nucleated RBCs (0-0) /100 WBC PT (9.0-12.0) sec INR (<1.2) APTT (22.0-30.0) sec ABG pH 7.29 L (7.35-7.45) ABG pO2 (83-108) mmHg ABG HCO3 18 L (21-25) mmol/L ABG Total CO2 (19-24) mmol/L ABG O2 Saturation (94-97) % Sodium (137-145) mmol/L Carbon Dioxide (22-30) mmol/L BUN (9-20) mg/dL Creatinine (0.66-1.25) mg/dL Glucose (74-99) mg/dL POC Glucose (mg/dL) 156 H (70-110) mg/dL Plasma Lactic Acid Tashi 11.9 H* (0.7-2.0) mmol/L Calcium (8.4-10.2) mg/dL Ionized Calcium Gage (4.5-5.3) mg/dL Total Bilirubin (0.2-1.3) mg/dL AST (17-59) U/L ALT (4-49) U/L Alkaline Phosphatase (38-126) U/L C-Reactive Protein (<1.0) mg/dL Total Protein (6.3-8.2) g/dL Albumin (3.5-5.0) g/dL Procalcitonin (0.02-0.09) ng/mL Crossmatch 04/21/22 04/21/22 04/21/22 Range/Units 15:25 15:25 15:25 WBC 40.1 H (3.8-10.6) k/uL RBC 2.57 L (4.30-5.90) m/uL Hgb 7.3 L (13.0-17.5) gm/dL Hct 22.3 L (39.0-53.0) % RDW 18.5 H (11.5-15.5) % Neutrophils # (Manual) 37.20 H (1.3-7.7) k/uL Monocytes # (Manual) (0-1.0) k/uL Metamyelocytes # (Man) 0.40 H (0) k/uL Myelocytes # (Manual) 0.40 H (0) k/uL Nucleated RBCs 1 H (0-0) /100 WBC PT (9.0-12.0) sec INR (<1.2) APTT (22.0-30.0) sec ABG pH (7.35-7.45) ABG pO2 (83-108) mmHg ABG HCO3 (21-25) mmol/L ABG Total CO2 (19-24) mmol/L ABG O2 Saturation (94-97) % Sodium (137-145) mmol/L Carbon Dioxide 18 L (22-30) mmol/L BUN 49 H (9-20) mg/dL Creatinine 1.96 H (0.66-1.25) mg/dL Glucose 141 H (74-99) mg/dL POC Glucose (mg/dL) (70-110) mg/dL Plasma Lactic Acid Tashi (0.7-2.0) mmol/L Calcium 6.5 L (8.4-10.2) mg/dL Ionized Calcium Gage (4.5-5.3) mg/dL Total Bilirubin 1.6 H (0.2-1.3) mg/dL AST 3732 H (17-59) U/L ALT 1046 H (4-49) U/L Alkaline Phosphatase 203 H (38-126) U/L C-Reactive Protein 9.0 H (<1.0) mg/dL Total Protein 4.2 L (6.3-8.2) g/dL Albumin 2.1 L (3.5-5.0) g/dL Procalcitonin (0.02-0.09) ng/mL Crossmatch 04/21/22 04/21/22 04/21/22 Range/Units 15:25 15:25 15:31 WBC (3.8-10.6) k/uL RBC (4.30-5.90) m/uL Hgb (13.0-17.5) gm/dL Hct (39.0-53.0) % RDW (11.5-15.5) % Neutrophils # (Manual) (1.3-7.7) k/uL Monocytes # (Manual) (0-1.0) k/uL Metamyelocytes # (Man) (0) k/uL Myelocytes # (Manual) (0) k/uL Nucleated RBCs (0-0) /100 WBC PT (9.0-12.0) sec INR (<1.2) APTT (22.0-30.0) sec ABG pH (7.35-7.45) ABG pO2 (83-108) mmHg ABG HCO3 (21-25) mmol/L ABG Total CO2 (19-24) mmol/L ABG O2 Saturation (94-97) % Sodium (137-145) mmol/L Carbon Dioxide (22-30) mmol/L BUN (9-20) mg/dL Creatinine (0.66-1.25) mg/dL Glucose (74-99) mg/dL POC Glucose (mg/dL) 158 H (70-110) mg/dL Plasma Lactic Acid Tashi (0.7-2.0) mmol/L Calcium (8.4-10.2) mg/dL Ionized Calcium Gage 3.9 L (4.5-5.3) mg/dL Total Bilirubin (0.2-1.3) mg/dL AST (17-59) U/L ALT (4-49) U/L Alkaline Phosphatase (38-126) U/L C-Reactive Protein (<1.0) mg/dL Total Protein (6.3-8.2) g/dL Albumin (3.5-5.0) g/dL Procalcitonin 3.83 H (0.02-0.09) ng/mL Crossmatch 04/21/22 04/21/22 04/21/22 Range/Units 16:29 17:10 18:10 WBC (3.8-10.6) k/uL RBC (4.30-5.90) m/uL Hgb (13.0-17.5) gm/dL Hct (39.0-53.0) % RDW (11.5-15.5) % Neutrophils # (Manual) (1.3-7.7) k/uL Monocytes # (Manual) (0-1.0) k/uL Metamyelocytes # (Man) (0) k/uL Myelocytes # (Manual) (0) k/uL Nucleated RBCs (0-0) /100 WBC PT (9.0-12.0) sec INR (<1.2) APTT (22.0-30.0) sec ABG pH 7.28 L (7.35-7.45) ABG pO2 68 L (83-108) mmHg ABG HCO3 20 L (21-25) mmol/L ABG Total CO2 (19-24) mmol/L ABG O2 Saturation 91.5 L (94-97) % Sodium (137-145) mmol/L Carbon Dioxide (22-30) mmol/L BUN (9-20) mg/dL Creatinine (0.66-1.25) mg/dL Glucose (74-99) mg/dL POC Glucose (mg/dL) 189 H 137 H (70-110) mg/dL Plasma Lactic Acid Tashi (0.7-2.0) mmol/L Calcium (8.4-10.2) mg/dL Ionized Calcium Gage (4.5-5.3) mg/dL Total Bilirubin (0.2-1.3) mg/dL AST (17-59) U/L ALT (4-49) U/L Alkaline Phosphatase (38-126) U/L C-Reactive Protein (<1.0) mg/dL Total Protein (6.3-8.2) g/dL Albumin (3.5-5.0) g/dL Procalcitonin (0.02-0.09) ng/mL Crossmatch 04/21/22 04/21/22 04/21/22 Range/Units 18:25 19:12 19:44 WBC 38.3 H (3.8-10.6) k/uL RBC 2.48 L (4.30-5.90) m/uL Hgb 7.1 L (13.0-17.5) gm/dL Hct 21.4 L (39.0-53.0) % RDW 18.3 H (11.5-15.5) % Neutrophils # (Manual) 37.10 H (1.3-7.7) k/uL Monocytes # (Manual) (0-1.0) k/uL Metamyelocytes # (Man) 0.38 H (0) k/uL Myelocytes # (Manual) (0) k/uL Nucleated RBCs 3 H (0-0) /100 WBC PT (9.0-12.0) sec INR (<1.2) APTT (22.0-30.0) sec ABG pH 7.30 L (7.35-7.45) ABG pO2 77 L (83-108) mmHg ABG HCO3 20 L (21-25) mmol/L ABG Total CO2 (19-24) mmol/L ABG O2 Saturation (94-97) % Sodium (137-145) mmol/L Carbon Dioxide (22-30) mmol/L BUN (9-20) mg/dL Creatinine (0.66-1.25) mg/dL Glucose (74-99) mg/dL POC Glucose (mg/dL) 147 H (70-110) mg/dL Plasma Lactic Acid Tashi (0.7-2.0) mmol/L Calcium (8.4-10.2) mg/dL Ionized Calcium Gage (4.5-5.3) mg/dL Total Bilirubin (0.2-1.3) mg/dL AST (17-59) U/L ALT (4-49) U/L Alkaline Phosphatase (38-126) U/L C-Reactive Protein (<1.0) mg/dL Total Protein (6.3-8.2) g/dL Albumin (3.5-5.0) g/dL Procalcitonin (0.02-0.09) ng/mL Crossmatch 04/21/22 04/21/22 04/21/22 Range/Units 19:44 19:44 19:44 WBC (3.8-10.6) k/uL RBC (4.30-5.90) m/uL Hgb (13.0-17.5) gm/dL Hct (39.0-53.0) % RDW (11.5-15.5) % Neutrophils # (Manual) (1.3-7.7) k/uL Monocytes # (Manual) (0-1.0) k/uL Metamyelocytes # (Man) (0) k/uL Myelocytes # (Manual) (0) k/uL Nucleated RBCs (0-0) /100 WBC PT (9.0-12.0) sec INR (<1.2) APTT (22.0-30.0) sec ABG pH (7.35-7.45) ABG pO2 (83-108) mmHg ABG HCO3 (21-25) mmol/L ABG Total CO2 (19-24) mmol/L ABG O2 Saturation (94-97) % Sodium (137-145) mmol/L Carbon Dioxide 19 L (22-30) mmol/L BUN 50 H (9-20) mg/dL Creatinine 2.11 H (0.66-1.25) mg/dL Glucose 139 H (74-99) mg/dL POC Glucose (mg/dL) (70-110) mg/dL Plasma Lactic Acid Tashi 12.8 H* (0.7-2.0) mmol/L Calcium 6.7 L (8.4-10.2) mg/dL Ionized Calcium Gage 3.8 L (4.5-5.3) mg/dL Total Bilirubin 1.6 H (0.2-1.3) mg/dL AST 3484 H (17-59) U/L ALT 989 H (4-49) U/L Alkaline Phosphatase 226 H (38-126) U/L C-Reactive Protein (<1.0) mg/dL Total Protein 4.1 L (6.3-8.2) g/dL Albumin 2.0 L (3.5-5.0) g/dL Procalcitonin (0.02-0.09) ng/mL Crossmatch 04/21/22 04/21/22 04/21/22 Range/Units 20:22 20:50 21:52 WBC (3.8-10.6) k/uL RBC (4.30-5.90) m/uL Hgb (13.0-17.5) gm/dL Hct (39.0-53.0) % RDW (11.5-15.5) % Neutrophils # (Manual) (1.3-7.7) k/uL Monocytes # (Manual) (0-1.0) k/uL Metamyelocytes # (Man) (0) k/uL Myelocytes # (Manual) (0) k/uL Nucleated RBCs (0-0) /100 WBC PT (9.0-12.0) sec INR (<1.2) APTT (22.0-30.0) sec ABG pH 7.30 L (7.35-7.45) ABG pO2 (83-108) mmHg ABG HCO3 19 L (21-25) mmol/L ABG Total CO2 (19-24) mmol/L ABG O2 Saturation 97.4 H (94-97) % Sodium (137-145) mmol/L Carbon Dioxide (22-30) mmol/L BUN (9-20) mg/dL Creatinine (0.66-1.25) mg/dL Glucose (74-99) mg/dL POC Glucose (mg/dL) 163 H 171 H (70-110) mg/dL Plasma Lactic Acid Tashi (0.7-2.0) mmol/L Calcium (8.4-10.2) mg/dL Ionized Calcium Gage (4.5-5.3) mg/dL Total Bilirubin (0.2-1.3) mg/dL AST (17-59) U/L ALT (4-49) U/L Alkaline Phosphatase (38-126) U/L C-Reactive Protein (<1.0) mg/dL Total Protein (6.3-8.2) g/dL Albumin (3.5-5.0) g/dL Procalcitonin (0.02-0.09) ng/mL Crossmatch 04/21/22 04/21/22 04/22/22 Range/Units 22:26 22:52 00:06 WBC 40.7 H (3.8-10.6) k/uL RBC 3.39 L (4.30-5.90) m/uL Hgb 9.9 L D (13.0-17.5) gm/dL Hct 29.1 L (39.0-53.0) % RDW 17.1 H (11.5-15.5) % Neutrophils # (Manual) 38.60 H (1.3-7.7) k/uL Monocytes # (Manual) (0-1.0) k/uL Metamyelocytes # (Man) 0.41 H (0) k/uL Myelocytes # (Manual) (0) k/uL Nucleated RBCs 1 H (0-0) /100 WBC PT (9.0-12.0) sec INR (<1.2) APTT (22.0-30.0) sec ABG pH 7.32 L (7.35-7.45) ABG pO2 (83-108) mmHg ABG HCO3 20 L (21-25) mmol/L ABG Total CO2 (19-24) mmol/L ABG O2 Saturation 97.3 H (94-97) % Sodium (137-145) mmol/L Carbon Dioxide (22-30) mmol/L BUN (9-20) mg/dL Creatinine (0.66-1.25) mg/dL Glucose (74-99) mg/dL POC Glucose (mg/dL) 181 H (70-110) mg/dL Plasma Lactic Acid Tashi (0.7-2.0) mmol/L Calcium (8.4-10.2) mg/dL Ionized Calcium Gage (4.5-5.3) mg/dL Total Bilirubin (0.2-1.3) mg/dL AST (17-59) U/L ALT (4-49) U/L Alkaline Phosphatase (38-126) U/L C-Reactive Protein (<1.0) mg/dL Total Protein (6.3-8.2) g/dL Albumin (3.5-5.0) g/dL Procalcitonin (0.02-0.09) ng/mL Crossmatch 04/22/22 04/22/22 04/22/22 Range/Units 00:19 00:19 00:30 WBC (3.8-10.6) k/uL RBC (4.30-5.90) m/uL Hgb (13.0-17.5) gm/dL Hct (39.0-53.0) % RDW (11.5-15.5) % Neutrophils # (Manual) (1.3-7.7) k/uL Monocytes # (Manual) (0-1.0) k/uL Metamyelocytes # (Man) (0) k/uL Myelocytes # (Manual) (0) k/uL Nucleated RBCs (0-0) /100 WBC PT (9.0-12.0) sec INR (<1.2) APTT (22.0-30.0) sec ABG pH 7.31 L (7.35-7.45) ABG pO2 82 L (83-108) mmHg ABG HCO3 20 L (21-25) mmol/L ABG Total CO2 (19-24) mmol/L ABG O2 Saturation (94-97) % Sodium (137-145) mmol/L Carbon Dioxide (22-30) mmol/L BUN (9-20) mg/dL Creatinine (0.66-1.25) mg/dL Glucose (74-99) mg/dL POC Glucose (mg/dL) 193 H (70-110) mg/dL Plasma Lactic Acid Tashi 13.5 H* (0.7-2.0) mmol/L Calcium (8.4-10.2) mg/dL Ionized Calcium Gage (4.5-5.3) mg/dL Total Bilirubin (0.2-1.3) mg/dL AST (17-59) U/L ALT (4-49) U/L Alkaline Phosphatase (38-126) U/L C-Reactive Protein (<1.0) mg/dL Total Protein (6.3-8.2) g/dL Albumin (3.5-5.0) g/dL Procalcitonin (0.02-0.09) ng/mL Crossmatch 04/22/22 04/22/22 04/22/22 Range/Units 01:12 02:12 02:20 WBC (3.8-10.6) k/uL RBC (4.30-5.90) m/uL Hgb (13.0-17.5) gm/dL Hct (39.0-53.0) % RDW (11.5-15.5) % Neutrophils # (Manual) (1.3-7.7) k/uL Monocytes # (Manual) (0-1.0) k/uL Metamyelocytes # (Man) (0) k/uL Myelocytes # (Manual) (0) k/uL Nucleated RBCs (0-0) /100 WBC PT (9.0-12.0) sec INR (<1.2) APTT (22.0-30.0) sec ABG pH 7.32 L (7.35-7.45) ABG pO2 78 L (83-108) mmHg ABG HCO3 (21-25) mmol/L ABG Total CO2 (19-24) mmol/L ABG O2 Saturation (94-97) % Sodium (137-145) mmol/L Carbon Dioxide (22-30) mmol/L BUN (9-20) mg/dL Creatinine (0.66-1.25) mg/dL Glucose (74-99) mg/dL POC Glucose (mg/dL) 194 H 200 H (70-110) mg/dL Plasma Lactic Acid Tashi (0.7-2.0) mmol/L Calcium (8.4-10.2) mg/dL Ionized Calcium Gage (4.5-5.3) mg/dL Total Bilirubin (0.2-1.3) mg/dL AST (17-59) U/L ALT (4-49) U/L Alkaline Phosphatase (38-126) U/L C-Reactive Protein (<1.0) mg/dL Total Protein (6.3-8.2) g/dL Albumin (3.5-5.0) g/dL Procalcitonin (0.02-0.09) ng/mL Crossmatch 04/22/22 04/22/22 04/22/22 Range/Units 03:35 04:00 04:00 WBC 40.4 H (3.8-10.6) k/uL RBC 3.45 L (4.30-5.90) m/uL Hgb 10.5 L (13.0-17.5) gm/dL Hct 29.6 L (39.0-53.0) % RDW 16.9 H (11.5-15.5) % Neutrophils # (Manual) 38.70 H (1.3-7.7) k/uL Monocytes # (Manual) (0-1.0) k/uL Metamyelocytes # (Man) (0) k/uL Myelocytes # (Manual) (0) k/uL Nucleated RBCs 1 H (0-0) /100 WBC PT (9.0-12.0) sec INR (<1.2) APTT (22.0-30.0) sec ABG pH (7.35-7.45) ABG pO2 (83-108) mmHg ABG HCO3 (21-25) mmol/L ABG Total CO2 (19-24) mmol/L ABG O2 Saturation (94-97) % Sodium (137-145) mmol/L Carbon Dioxide 21 L (22-30) mmol/L BUN 53 H (9-20) mg/dL Creatinine 2.26 H (0.66-1.25) mg/dL Glucose 185 H (74-99) mg/dL POC Glucose (mg/dL) 200 H (70-110) mg/dL Plasma Lactic Acid Tashi (0.7-2.0) mmol/L Calcium 6.5 L (8.4-10.2) mg/dL Ionized Calcium Gage 3.7 L (4.5-5.3) mg/dL Total Bilirubin 2.5 H (0.2-1.3) mg/dL AST 3211 H (17-59) U/L ALT 1040 H (4-49) U/L Alkaline Phosphatase 232 H (38-126) U/L C-Reactive Protein (<1.0) mg/dL Total Protein 4.2 L (6.3-8.2) g/dL Albumin 2.0 L (3.5-5.0) g/dL Procalcitonin (0.02-0.09) ng/mL Crossmatch 04/22/22 04/22/22 04/22/22 Range/Units 04:00 04:00 04:17 WBC (3.8-10.6) k/uL RBC (4.30-5.90) m/uL Hgb (13.0-17.5) gm/dL Hct (39.0-53.0) % RDW (11.5-15.5) % Neutrophils # (Manual) (1.3-7.7) k/uL Monocytes # (Manual) (0-1.0) k/uL Metamyelocytes # (Man) (0) k/uL Myelocytes # (Manual) (0) k/uL Nucleated RBCs (0-0) /100 WBC PT 15.6 H (9.0-12.0) sec INR 1.5 H (<1.2) APTT 34.8 H (22.0-30.0) sec ABG pH 7.32 L (7.35-7.45) ABG pO2 65 L (83-108) mmHg ABG HCO3 (21-25) mmol/L ABG Total CO2 (19-24) mmol/L ABG O2 Saturation 92.3 L (94-97) % Sodium (137-145) mmol/L Carbon Dioxide (22-30) mmol/L BUN (9-20) mg/dL Creatinine (0.66-1.25) mg/dL Glucose (74-99) mg/dL POC Glucose (mg/dL) (70-110) mg/dL Plasma Lactic Acid Tashi 13.6 H* (0.7-2.0) mmol/L Calcium (8.4-10.2) mg/dL Ionized Calcium Gage (4.5-5.3) mg/dL Total Bilirubin (0.2-1.3) mg/dL AST (17-59) U/L ALT (4-49) U/L Alkaline Phosphatase (38-126) U/L C-Reactive Protein (<1.0) mg/dL Total Protein (6.3-8.2) g/dL Albumin (3.5-5.0) g/dL Procalcitonin (0.02-0.09) ng/mL Crossmatch 04/22/22 04/22/22 04/22/22 Range/Units 04:29 05:16 06:09 WBC (3.8-10.6) k/uL RBC (4.30-5.90) m/uL Hgb (13.0-17.5) gm/dL Hct (39.0-53.0) % RDW (11.5-15.5) % Neutrophils # (Manual) (1.3-7.7) k/uL Monocytes # (Manual) (0-1.0) k/uL Metamyelocytes # (Man) (0) k/uL Myelocytes # (Manual) (0) k/uL Nucleated RBCs (0-0) /100 WBC PT (9.0-12.0) sec INR (<1.2) APTT (22.0-30.0) sec ABG pH (7.35-7.45) ABG pO2 (83-108) mmHg ABG HCO3 (21-25) mmol/L ABG Total CO2 (19-24) mmol/L ABG O2 Saturation (94-97) % Sodium (137-145) mmol/L Carbon Dioxide (22-30) mmol/L BUN (9-20) mg/dL Creatinine (0.66-1.25) mg/dL Glucose (74-99) mg/dL POC Glucose (mg/dL) 196 H 190 H 175 H (70-110) mg/dL Plasma Lactic Acid Tashi (0.7-2.0) mmol/L Calcium (8.4-10.2) mg/dL Ionized Calcium Gage (4.5-5.3) mg/dL Total Bilirubin (0.2-1.3) mg/dL AST (17-59) U/L ALT (4-49) U/L Alkaline Phosphatase (38-126) U/L C-Reactive Protein (<1.0) mg/dL Total Protein (6.3-8.2) g/dL Albumin (3.5-5.0) g/dL Procalcitonin (0.02-0.09) ng/mL Crossmatch 04/22/22 04/22/22 04/22/22 Range/Units 06:16 07:08 07:09 WBC (3.8-10.6) k/uL RBC (4.30-5.90) m/uL Hgb (13.0-17.5) gm/dL Hct (39.0-53.0) % RDW (11.5-15.5) % Neutrophils # (Manual) (1.3-7.7) k/uL Monocytes # (Manual) (0-1.0) k/uL Metamyelocytes # (Man) (0) k/uL Myelocytes # (Manual) (0) k/uL Nucleated RBCs (0-0) /100 WBC PT (9.0-12.0) sec INR (<1.2) APTT (22.0-30.0) sec ABG pH 7.33 L (7.35-7.45) ABG pO2 59 L* (83-108) mmHg ABG HCO3 (21-25) mmol/L ABG Total CO2 (19-24) mmol/L ABG O2 Saturation 89.4 L (94-97) % Sodium (137-145) mmol/L Carbon Dioxide (22-30) mmol/L BUN (9-20) mg/dL Creatinine (0.66-1.25) mg/dL Glucose (74-99) mg/dL POC Glucose (mg/dL) 168 H (70-110) mg/dL Plasma Lactic Acid Tashi 12.1 H* (0.7-2.0) mmol/L Calcium (8.4-10.2) mg/dL Ionized Calcium Gage (4.5-5.3) mg/dL Total Bilirubin (0.2-1.3) mg/dL AST (17-59) U/L ALT (4-49) U/L Alkaline Phosphatase (38-126) U/L C-Reactive Protein (<1.0) mg/dL Total Protein (6.3-8.2) g/dL Albumin (3.5-5.0) g/dL Procalcitonin (0.02-0.09) ng/mL Crossmatch 04/22/22 04/22/22 04/22/22 Range/Units 08:06 08:23 08:24 WBC 38.1 H (3.8-10.6) k/uL RBC 3.57 L (4.30-5.90) m/uL Hgb 9.8 L (13.0-17.5) gm/dL Hct 30.6 L (39.0-53.0) % RDW 17.3 H (11.5-15.5) % Neutrophils # (Manual) (1.3-7.7) k/uL Monocytes # (Manual) (0-1.0) k/uL Metamyelocytes # (Man) (0) k/uL Myelocytes # (Manual) (0) k/uL Nucleated RBCs (0-0) /100 WBC PT (9.0-12.0) sec INR (<1.2) APTT (22.0-30.0) sec ABG pH 7.33 L (7.35-7.45) ABG pO2 53 L* (83-108) mmHg ABG HCO3 (21-25) mmol/L ABG Total CO2 (19-24) mmol/L ABG O2 Saturation 84.9 L (94-97) % Sodium (137-145) mmol/L Carbon Dioxide (22-30) mmol/L BUN (9-20) mg/dL Creatinine (0.66-1.25) mg/dL Glucose (74-99) mg/dL POC Glucose (mg/dL) 201 H (70-110) mg/dL Plasma Lactic Acid Tashi (0.7-2.0) mmol/L Calcium (8.4-10.2) mg/dL Ionized Calcium Gage (4.5-5.3) mg/dL Total Bilirubin (0.2-1.3) mg/dL AST (17-59) U/L ALT (4-49) U/L Alkaline Phosphatase (38-126) U/L C-Reactive Protein (<1.0) mg/dL Total Protein (6.3-8.2) g/dL Albumin (3.5-5.0) g/dL Procalcitonin (0.02-0.09) ng/mL Crossmatch 04/22/22 04/22/22 Range/Units 08:34 09:10 WBC (3.8-10.6) k/uL RBC (4.30-5.90) m/uL Hgb (13.0-17.5) gm/dL Hct (39.0-53.0) % RDW (11.5-15.5) % Neutrophils # (Manual) (1.3-7.7) k/uL Monocytes # (Manual) (0-1.0) k/uL Metamyelocytes # (Man) (0) k/uL Myelocytes # (Manual) (0) k/uL Nucleated RBCs (0-0) /100 WBC PT (9.0-12.0) sec INR (<1.2) APTT (22.0-30.0) sec ABG pH (7.35-7.45) ABG pO2 (83-108) mmHg ABG HCO3 (21-25) mmol/L ABG Total CO2 (19-24) mmol/L ABG O2 Saturation (94-97) % Sodium (137-145) mmol/L Carbon Dioxide (22-30) mmol/L BUN (9-20) mg/dL Creatinine (0.66-1.25) mg/dL Glucose (74-99) mg/dL POC Glucose (mg/dL) 164 H 154 H (70-110) mg/dL Plasma Lactic Acid Tashi (0.7-2.0) mmol/L Calcium (8.4-10.2) mg/dL Ionized Calcium Gage (4.5-5.3) mg/dL Total Bilirubin (0.2-1.3) mg/dL AST (17-59) U/L ALT (4-49) U/L Alkaline Phosphatase (38-126) U/L C-Reactive Protein (<1.0) mg/dL Total Protein (6.3-8.2) g/dL Albumin (3.5-5.0) g/dL Procalcitonin (0.02-0.09) ng/mL Crossmatch Microbiology - Last 24 Hours (Table) 04/20/22 23:57 Gram Stain - Preliminary Sputum Sputum Culture - Preliminary Assessment and Plan Plan: Coronary artery disease status post coronary artery bypass grafting 4 with a SANTA to the LAD, left radial artery graft to the first obtuse marginal, saphenous vein graft to the first diagonal, saphenous vein graft to the posterior lateral branch of the RCA. Left atrial appendage clip. Postoperative day #11 Acute shock with multisystem organ failure. Consider ischemic colitis. The pa tient started of with having bloody diarrhea and severe lactic acidosis and subsequently he went into shock and multisystem organ failure. CAT scan of the abdomen was negative. Too unstable to undergo any surgical exploration. The patient was given fluids, pressors and antibiotics. General surgery is also on the case. Acute lactic acidosis Acute shock liver Acute kidney injury Acute hypoxic respiratory failure and the patient is still hypoxic and the chest x-ray from today showing development of bilateral pleural effusion and colovesical congestion/edema. Acute leukocytosis Acute GI bleed, consider the possibility of an ischemic colitis. The patient developed GI bleed and severe lactic acidosis. Patient also developed leukocytosis. The patient was started on broad-spectrum antibiotics. Patient is currently being resuscitated with fluids and pressors Cardiac arrest secondary to episodes of V. tach, given lidocaine by cardiothoracic team, and the patient continues to be on lidocaine infusion at 2 mg/m. Blood loss anemia secondary to GI bleed, given a total of 2 units of packed RBC, and additional 2 units of blood was given to him yesterday Left-sided pleural effusion post thoracentesis and removal of 300 mL of pleural fluid Hypertension, history of. Hyperlipidemia. History of melanoma of the left eyelid, resected. Leonard's esophagus. Parkinson tremors. Former smoker, quit 30 years ago. Chronic obstructive pulmonary disease. The patient has a preserved FEV1 of 88% of predicted Peripheral vascular disease History of liver cirrhosis History of skin melanoma History of chronic generalized anxiety disorder/depression Diabetes mellitus, with insulin dependence Degenerative arthritis Chronic back pain Iron deficiency anemia Peripheral neuropathy Plan continue vent support Increase to keep up to 24 and got a tidal volume to 400 and a repeat another blood gas Keep the patient sedated with propofol and paralyzed the patient with Nimbex infusion The patient is currently on IV fluids and the patient is on a bicarb infusion at the rate of 100 mL an hour Continue pressors and the patient will be started on vasopressin his urologic th ose and will continue also norepinephrine infusion and titrate to maintain him yesterday pressure was 65 Continue cefepime and Flagyl as empiric antibiotic coverage Continue lidocaine infusion Monitor urine output Put the patient on lidocaine drip Monitor LFTs Monitor renal function Monitor cardiac rhythm Replace low calcium CODE STATUS is DNR/DNI Very poor prognosis based above-mentioned comorbidities. This will likely be mortality. Critical care evaluation that was done in more than 30 minutes. Time with Patient: Greater than 30
[2022-04-22 09:49] LABS: ABG Base Excess -3.8 mmol/L; ABG HCO3 23 mmol/L (21-25); ABG Oxygen Saturation 73.1 % (94-97); ABG PCO2 52 mmHg (35-45); ABG PH 7.26 (7.35-7.45); ABG TCO2 25 mmol/L (19-24); Allen Test Performed? Yes
[2022-04-22 09:52] LABS: ABG PO2 45 mmHg (83-108)
--- NOTE | 2022-04-22 09:54 | P.PN ---
Subjective Progress Note Date: 04/22/22 Principal diagnosis: GI bleed Patient remains critically ill this morning. The patient's lab values demonstrate persistent lactic acidosis. Patient has been unstable from a oxyg enation standpoint and also a blood pressure standpoint throughout the day yesterday into this morning. CT angiogram which was ordered by myself after seeing him yesterday was not able to be performed because of his instability. Regardless patient is a extremely poor candidate for surgery in the event that mesenteric vascular occlusion was found. Patient was having runs of V. tach and actually had a CODE BLUE yesterday afternoon. He did respond to resuscitation. Family present at the bedside today. CODE STATUS was switched to a no code at this time. On the positive side patient pressure requirements seems to have decreased slightly this morning. He is still making some urine. Objective - Vital Signs Vital signs: Vital Signs Temp 98.1 F 04/22/22 04:00 Pulse 103 H 04/22/22 09:30 Resp 28 H 04/22/22 09:30 BP 129/58 04/22/22 09:30 Pulse Ox 80 L 04/22/22 09:30 FiO2 100 04/22/22 07:21 Intake & Output 04/21/22 04/22/22 04/22/22 18:59 06:59 18:59 Intake Total 4394.479 2772.430 365.434 Output Total 295 285 58 Balance 4099.479 2487.430 307.434 Weight 113.1 kg Intake: IV 2707 372 118 0.9NS Pressure Bag 57 72 18 Calcium Gluconate in NaCl 100 2 gm In Saline 1 100ml. bag @ 100 mls/hr IVPB ONCE ONE Rx#:[id number] Cefepime 2 gm In Sodium 100 Chloride 0.9% 100 ml @ 25 mls/hr IVPB Q12H [facility] Rx# :[id number] Dextrose 5% in Water 1, 1200 300 100 000 ml @ 100 mls/hr IV . [id number] [facility] with Sodium Bicarb (1 Meq/ml) 150 ml Rx#:[id number] Sodium Chloride 0.9% 1, 1000 000 ml @ 999 mls/hr IV . Q1H1M ONE Rx#:[id number] Vancomycin 1,000 mg In 250 Sodium Chloride 0.9% 250 ml @ 125 mls/hr IVPB ONCE STA Rx#:[id number] Intake, IV Titration 178.950 3091.430 247.434 Amount Calcium Gluconate in NaCl 100 1 gm In Saline 1 100ml. bag @ 100 mls/hr IVPB ONCE ONE Rx#:[id number] Cisatracurium 200 mg In 33.39 81.694 Sodium Chloride 0.9% 180 ml @ 2 MCG/KG/MIN 13.356 mls/hr IV .[id number] REPLACED BY [facility] Rx #:[id number] Dextrose 5% in Water 1, 800 200 000 ml @ 100 mls/hr IV . [id number] [facility] with Sodium Bicarb (1 Meq/ml) 150 ml Rx#:[id number] Insulin Regular 100 unit 5.647 21.193 25.216 In Sodium Chloride 0.9% 100 ml @ Per Protocol IV .Q0M REPLACED BY [facility] Rx#:[id number] Lidocaine-D5w Pmx 2G/ 201 250Ml 2,000 mg In Dextrose/Water 1 250ml. bag @ 2 MG/MIN 15 mls/hr IV .Q26P00Z REPLACED BY [facility] Rx#: [id number] Norepinephrine 32 mg In 48.588 230.869 22.218 Sodium Chloride 0.9% 218 ml @ 0.03 MCG/KG/MIN 1. 565 mls/hr IV .Q24H REPLACED BY [facility] Rx#:[id number] Norepinephrine 4 mg In 355.739 Sodium Chloride 0.9% 250 ml @ 0.03 MCG/KG/MIN 12. 687 mls/hr IV .Q20H2M REPLACED BY [facility] Rx#:[id number] Vasopressin 60 unit In 99.986 Sodium Chloride 0.9% 150 ml @ 0.04 UNITS/MIN 6.12 mls/hr IV .Q24H REPLACED BY [facility] Rx#: [id number] propofoL 1,000 mg In 273.115 Empty Bag 1 bag @ 15 MCG/ KG/MIN 9.99 mls/hr IV . Q10H1M REPLACED BY [facility] Rx#:[id number] propofoL 1,000 mg In 245.688 Empty Bag 1 bag @ 15 MCG/ KG/MIN 9.99 mls/hr IV . Q10H1M REPLACED BY [facility] Rx#:[id number] Blood Product 721 620 Platelet Pheresis Pas 361 Psoralen Unit [id number] Rc As-1 Unit 310 [id number] Rc As-1 Unit 310 [id number] Albumin 250 Albumin Human 5% 250 ml @ 250 0 mls/hr IVPB .[facility] Rx#:[id number] Output: Urine 295 285 58 Other: Voiding Method Indwelling Catheter Indwelling Catheter # Bowel Movements 1 0 ABP, PAP, CO, CI - Last Documented Arterial Blood Pressure 121/46 Pulmonary Artery Pressure 38/5 Cardiac Output 5.5 Cardiac Index 2.5 - Exam Abdomen: Soft, increased abdominal distention, no appreciable tenderness however patient sedated with paralytics - Labs CBC & Chem 7: 04/22/22 08:23 04/22/22 04:00 Labs: Abnormal Lab Results - Last 24 Hours (Table) 04/20/22 04/21/22 04/21/22 Range/Units 17:09 11:41 11:50 WBC (3.8-10.6) k/uL RBC (4.30-5.90) m/uL Hgb (13.0-17.5) gm/dL Hct (39.0-53.0) % RDW (11.5-15.5) % Neutrophils # (Manual) (1.3-7.7) k/uL Monocytes # (Manual) (0-1.0) k/uL Metamyelocytes # (Man) (0) k/uL Myelocytes # (Manual) (0) k/uL Nucleated RBCs (0-0) /100 WBC PT (9.0-12.0) sec INR (<1.2) APTT (22.0-30.0) sec ABG pH (7.35-7.45) ABG pO2 (83-108) mmHg ABG HCO3 (21-25) mmol/L ABG Total CO2 (19-24) mmol/L ABG O2 Saturation (94-97) % Sodium (137-145) mmol/L Carbon Dioxide (22-30) mmol/L BUN (9-20) mg/dL Creatinine (0.66-1.25) mg/dL Glucose (74-99) mg/dL POC Glucose (mg/dL) 145 H (70-110) mg/dL Plasma Lactic Acid Tashi 11.4 H* (0.7-2.0) mmol/L Calcium (8.4-10.2) mg/dL Ionized Calcium Gage (4.5-5.3) mg/dL Total Bilirubin (0.2-1.3) mg/dL AST (17-59) U/L ALT (4-49) U/L Alkaline Phosphatase (38-126) U/L C-Reactive Protein (<1.0) mg/dL Total Protein (6.3-8.2) g/dL Albumin (3.5-5.0) g/dL Procalcitonin (0.02-0.09) ng/mL Crossmatch See Detail 04/21/22 04/21/22 04/21/22 Range/Units 11:50 11:50 12:04 WBC 40.9 H (3.8-10.6) k/uL RBC 2.56 L (4.30-5.90) m/uL Hgb 7.0 L (13.0-17.5) gm/dL Hct 22.2 L (39.0-53.0) % RDW 18.4 H (11.5-15.5) % Neutrophils # (Manual) 37.63 H (1.3-7.7) k/uL Monocytes # (Manual) 1.23 H (0-1.0) k/uL Metamyelocytes # (Man) (0) k/uL Myelocytes # (Manual) (0) k/uL Nucleated RBCs 3 H (0-0) /100 WBC PT (9.0-12.0) sec INR (<1.2) APTT (22.0-30.0) sec ABG pH 7.19 L* (7.35-7.45) ABG pO2 70 L (83-108) mmHg ABG HCO3 16 L (21-25) mmol/L ABG Total CO2 17 L (19-24) mmol/L ABG O2 Saturation 89.1 L (94-97) % Sodium 136 L (137-145) mmol/L Carbon Dioxide 17 L (22-30) mmol/L BUN 45 H (9-20) mg/dL Creatinine 2.00 H (0.66-1.25) mg/dL Glucose 123 H (74-99) mg/dL POC Glucose (mg/dL) (70-110) mg/dL Plasma Lactic Acid Tashi (0.7-2.0) mmol/L Calcium 6.0 L* (8.4-10.2) mg/dL Ionized Calcium Gage (4.5-5.3) mg/dL Total Bilirubin (0.2-1.3) mg/dL AST 3133 H (17-59) U/L ALT 999 H (4-49) U/L Alkaline Phosphatase 167 H (38-126) U/L C-Reactive Protein (<1.0) mg/dL Total Protein 3.7 L (6.3-8.2) g/dL Albumin 1.8 L (3.5-5.0) g/dL Procalcitonin (0.02-0.09) ng/mL Crossmatch 04/21/22 04/21/22 04/21/22 Range/Units 12:19 14:38 14:42 WBC (3.8-10.6) k/uL RBC (4.30-5.90) m/uL Hgb (13.0-17.5) gm/dL Hct (39.0-53.0) % RDW (11.5-15.5) % Neutrophils # (Manual) (1.3-7.7) k/uL Monocytes # (Manual) (0-1.0) k/uL Metamyelocytes # (Man) (0) k/uL Myelocytes # (Manual) (0) k/uL Nucleated RBCs (0-0) /100 WBC PT (9.0-12.0) sec INR (<1.2) APTT (22.0-30.0) sec ABG pH 7.29 L (7.35-7.45) ABG pO2 79 L (83-108) mmHg ABG HCO3 18 L (21-25) mmol/L ABG Total CO2 27 H (19-24) mmol/L ABG O2 Saturation (94-97) % Sodium (137-145) mmol/L Carbon Dioxide (22-30) mmol/L BUN (9-20) mg/dL Creatinine (0.66-1.25) mg/dL Glucose (74-99) mg/dL POC Glucose (mg/dL) 156 H (70-110) mg/dL Plasma Lactic Acid Tashi (0.7-2.0) mmol/L Calcium (8.4-10.2) mg/dL Ionized Calcium Gage (4.5-5.3) mg/dL Total Bilirubin (0.2-1.3) mg/dL AST (17-59) U/L ALT (4-49) U/L Alkaline Phosphatase (38-126) U/L C-Reactive Protein (<1.0) mg/dL Total Protein (6.3-8.2) g/dL Albumin (3.5-5.0) g/dL Procalcitonin (0.02-0.09) ng/mL Crossmatch 04/21/22 04/21/22 04/21/22 Range/Units 15:25 15:25 15:25 WBC 40.1 H (3.8-10.6) k/uL RBC 2.57 L (4.30-5.90) m/uL Hgb 7.3 L (13.0-17.5) gm/dL Hct 22.3 L (39.0-53.0) % RDW 18.5 H (11.5-15.5) % Neutrophils # (Manual) 37.20 H (1.3-7.7) k/uL Monocytes # (Manual) (0-1.0) k/uL Metamyelocytes # (Man) 0.40 H (0) k/uL Myelocytes # (Manual) 0.40 H (0) k/uL Nucleated RBCs 1 H (0-0) /100 WBC PT (9.0-12.0) sec INR (<1.2) APTT (22.0-30.0) sec ABG pH (7.35-7.45) ABG pO2 (83-108) mmHg ABG HCO3 (21-25) mmol/L ABG Total CO2 (19-24) mmol/L ABG O2 Saturation (94-97) % Sodium (137-145) mmol/L Carbon Dioxide 18 L (22-30) mmol/L BUN 49 H (9-20) mg/dL Creatinine 1.96 H (0.66-1.25) mg/dL Glucose 141 H (74-99) mg/dL POC Glucose (mg/dL) (70-110) mg/dL Plasma Lactic Acid Tashi 11.9 H* (0.7-2.0) mmol/L Calcium 6.5 L (8.4-10.2) mg/dL Ionized Calcium Gage (4.5-5.3) mg/dL Total Bilirubin 1.6 H (0.2-1.3) mg/dL AST 3732 H (17-59) U/L ALT 1046 H (4-49) U/L Alkaline Phosphatase 203 H (38-126) U/L C-Reactive Protein (<1.0) mg/dL Total Protein 4.2 L (6.3-8.2) g/dL Albumin 2.1 L (3.5-5.0) g/dL Procalcitonin (0.02-0.09) ng/mL Crossmatch 04/21/22 04/21/22 04/21/22 Range/Units 15:25 15:25 15:25 WBC (3.8-10.6) k/uL RBC (4.30-5.90) m/uL Hgb (13.0-17.5) gm/dL Hct (39.0-53.0) % RDW (11.5-15.5) % Neutrophils # (Manual) (1.3-7.7) k/uL Monocytes # (Manual) (0-1.0) k/uL Metamyelocytes # (Man) (0) k/uL Myelocytes # (Manual) (0) k/uL Nucleated RBCs (0-0) /100 WBC PT (9.0-12.0) sec INR (<1.2) APTT (22.0-30.0) sec ABG pH (7.35-7.45) ABG pO2 (83-108) mmHg ABG HCO3 (21-25) mmol/L ABG Total CO2 (19-24) mmol/L ABG O2 Saturation (94-97) % Sodium (137-145) mmol/L Carbon Dioxide (22-30) mmol/L BUN (9-20) mg/dL Creatinine (0.66-1.25) mg/dL Glucose (74-99) mg/dL POC Glucose (mg/dL) (70-110) mg/dL Plasma Lactic Acid Tashi (0.7-2.0) mmol/L Calcium (8.4-10.2) mg/dL Ionized Calcium Gage 3.9 L (4.5-5.3) mg/dL Total Bilirubin (0.2-1.3) mg/dL AST (17-59) U/L ALT (4-49) U/L Alkaline Phosphatase (38-126) U/L C-Reactive Protein 9.0 H (<1.0) mg/dL Total Protein (6.3-8.2) g/dL Albumin (3.5-5.0) g/dL Procalcitonin 3.83 H (0.02-0.09) ng/mL Crossmatch 04/21/22 04/21/22 04/21/22 Range/Units 15:31 16:29 17:10 WBC (3.8-10.6) k/uL RBC (4.30-5.90) m/uL Hgb (13.0-17.5) gm/dL Hct (39.0-53.0) % RDW (11.5-15.5) % Neutrophils # (Manual) (1.3-7.7) k/uL Monocytes # (Manual) (0-1.0) k/uL Metamyelocytes # (Man) (0) k/uL Myelocytes # (Manual) (0) k/uL Nucleated RBCs (0-0) /100 WBC PT (9.0-12.0) sec INR (<1.2) APTT (22.0-30.0) sec ABG pH 7.28 L (7.35-7.45) ABG pO2 68 L (83-108) mmHg ABG HCO3 20 L (21-25) mmol/L ABG Total CO2 (19-24) mmol/L ABG O2 Saturation 91.5 L (94-97) % Sodium (137-145) mmol/L Carbon Dioxide (22-30) mmol/L BUN (9-20) mg/dL Creatinine (0.66-1.25) mg/dL Glucose (74-99) mg/dL POC Glucose (mg/dL) 158 H 189 H (70-110) mg/dL Plasma Lactic Acid Tashi (0.7-2.0) mmol/L Calcium (8.4-10.2) mg/dL Ionized Calcium Gage (4.5-5.3) mg/dL Total Bilirubin (0.2-1.3) mg/dL AST (17-59) U/L ALT (4-49) U/L Alkaline Phosphatase (38-126) U/L C-Reactive Protein (<1.0) mg/dL Total Protein (6.3-8.2) g/dL Albumin (3.5-5.0) g/dL Procalcitonin (0.02-0.09) ng/mL Crossmatch 04/21/22 04/21/22 04/21/22 Range/Units 18:10 18:25 19:12 WBC (3.8-10.6) k/uL RBC (4.30-5.90) m/uL Hgb (13.0-17.5) gm/dL Hct (39.0-53.0) % RDW (11.5-15.5) % Neutrophils # (Manual) (1.3-7.7) k/uL Monocytes # (Manual) (0-1.0) k/uL Metamyelocytes # (Man) (0) k/uL Myelocytes # (Manual) (0) k/uL Nucleated RBCs (0-0) /100 WBC PT (9.0-12.0) sec INR (<1.2) APTT (22.0-30.0) sec ABG pH 7.30 L (7.35-7.45) ABG pO2 77 L (83-108) mmHg ABG HCO3 20 L (21-25) mmol/L ABG Total CO2 (19-24) mmol/L ABG O2 Saturation (94-97) % Sodium (137-145) mmol/L Carbon Dioxide (22-30) mmol/L BUN (9-20) mg/dL Creatinine (0.66-1.25) mg/dL Glucose (74-99) mg/dL POC Glucose (mg/dL) 137 H 147 H (70-110) mg/dL Plasma Lactic Acid Tashi (0.7-2.0) mmol/L Calcium (8.4-10.2) mg/dL Ionized Calcium Gage (4.5-5.3) mg/dL Total Bilirubin (0.2-1.3) mg/dL AST (17-59) U/L ALT (4-49) U/L Alkaline Phosphatase (38-126) U/L C-Reactive Protein (<1.0) mg/dL Total Protein (6.3-8.2) g/dL Albumin (3.5-5.0) g/dL Procalcitonin (0.02-0.09) ng/mL Crossmatch 04/21/22 04/21/22 04/21/22 Range/Units 19:44 19:44 19:44 WBC 38.3 H (3.8-10.6) k/uL RBC 2.48 L (4.30-5.90) m/uL Hgb 7.1 L (13.0-17.5) gm/dL Hct 21.4 L (39.0-53.0) % RDW 18.3 H (11.5-15.5) % Neutrophils # (Manual) 37.10 H (1.3-7.7) k/uL Monocytes # (Manual) (0-1.0) k/uL Metamyelocytes # (Man) 0.38 H (0) k/uL Myelocytes # (Manual) (0) k/uL Nucleated RBCs 3 H (0-0) /100 WBC PT (9.0-12.0) sec INR (<1.2) APTT (22.0-30.0) sec ABG pH (7.35-7.45) ABG pO2 (83-108) mmHg ABG HCO3 (21-25) mmol/L ABG Total CO2 (19-24) mmol/L ABG O2 Saturation (94-97) % Sodium (137-145) mmol/L Carbon Dioxide 19 L (22-30) mmol/L BUN 50 H (9-20) mg/dL Creatinine 2.11 H (0.66-1.25) mg/dL Glucose 139 H (74-99) mg/dL POC Glucose (mg/dL) (70-110) mg/dL Plasma Lactic Acid Tashi 12.8 H* (0.7-2.0) mmol/L Calcium 6.7 L (8.4-10.2) mg/dL Ionized Calcium Gage (4.5-5.3) mg/dL Total Bilirubin 1.6 H (0.2-1.3) mg/dL AST 3484 H (17-59) U/L ALT 989 H (4-49) U/L Alkaline Phosphatase 226 H (38-126) U/L C-Reactive Protein (<1.0) mg/dL Total Protein 4.1 L (6.3-8.2) g/dL Albumin 2.0 L (3.5-5.0) g/dL Procalcitonin (0.02-0.09) ng/mL Crossmatch 04/21/22 04/21/22 04/21/22 Range/Units 19:44 20:22 20:50 WBC (3.8-10.6) k/uL RBC (4.30-5.90) m/uL Hgb (13.0-17.5) gm/dL Hct (39.0-53.0) % RDW (11.5-15.5) % Neutrophils # (Manual) (1.3-7.7) k/uL Monocytes # (Manual) (0-1.0) k/uL Metamyelocytes # (Man) (0) k/uL Myelocytes # (Manual) (0) k/uL Nucleated RBCs (0-0) /100 WBC PT (9.0-12.0) sec INR (<1.2) APTT (22.0-30.0) sec ABG pH 7.30 L (7.35-7.45) ABG pO2 (83-108) mmHg ABG HCO3 19 L (21-25) mmol/L ABG Total CO2 (19-24) mmol/L ABG O2 Saturation 97.4 H (94-97) % Sodium (137-145) mmol/L Carbon Dioxide (22-30) mmol/L BUN (9-20) mg/dL Creatinine (0.66-1.25) mg/dL Glucose (74-99) mg/dL POC Glucose (mg/dL) 163 H (70-110) mg/dL Plasma Lactic Acid Tashi (0.7-2.0) mmol/L Calcium (8.4-10.2) mg/dL Ionized Calcium Gage 3.8 L (4.5-5.3) mg/dL Total Bilirubin (0.2-1.3) mg/dL AST (17-59) U/L ALT (4-49) U/L Alkaline Phosphatase (38-126) U/L C-Reactive Protein (<1.0) mg/dL Total Protein (6.3-8.2) g/dL Albumin (3.5-5.0) g/dL Procalcitonin (0.02-0.09) ng/mL Crossmatch 11/04/21/22 04/21/22 Range/Units 21:52 22:26 22:52 WBC (3.8-10.6) k/uL RBC (4.30-5.90) m/uL Hgb (13.0-17.5) gm/dL Hct (39.0-53.0) % RDW (11.5-15.5) % Neutrophils # (Manual) (1.3-7.7) k/uL Monocytes # (Manual) (0-1.0) k/uL Metamyelocytes # (Man) (0) k/uL Myelocytes # (Manual) (0) k/uL Nucleated RBCs (0-0) /100 WBC PT (9.0-12.0) sec INR (<1.2) APTT (22.0-30.0) sec ABG pH 7.32 L (7.35-7.45) ABG pO2 (83-108) mmHg ABG HCO3 20 L (21-25) mmol/L ABG Total CO2 (19-24) mmol/L ABG O2 Saturation 97.3 H (94-97) % Sodium (137-145) mmol/L Carbon Dioxide (22-30) mmol/L BUN (9-20) mg/dL Creatinine (0.66-1.25) mg/dL Glucose (74-99) mg/dL POC Glucose (mg/dL) 171 H 181 H (70-110) mg/dL Plasma Lactic Acid Tashi (0.7-2.0) mmol/L Calcium (8.4-10.2) mg/dL Ionized Calcium Gage (4.5-5.3) mg/dL Total Bilirubin (0.2-1.3) mg/dL AST (17-59) U/L ALT (4-49) U/L Alkaline Phosphatase (38-126) U/L C-Reactive Protein (<1.0) mg/dL Total Protein (6.3-8.2) g/dL Albumin (3.5-5.0) g/dL Procalcitonin (0.02-0.09) ng/mL Crossmatch 04/22/22 04/22/22 04/22/22 Range/Units 00:06 00:19 00:19 WBC 40.7 H (3.8-10.6) k/uL RBC 3.39 L (4.30-5.90) m/uL Hgb 9.9 L D (13.0-17.5) gm/dL Hct 29.1 L (39.0-53.0) % RDW 17.1 H (11.5-15.5) % Neutrophils # (Manual) 38.60 H (1.3-7.7) k/uL Monocytes # (Manual) (0-1.0) k/uL Metamyelocytes # (Man) 0.41 H (0) k/uL Myelocytes # (Manual) (0) k/uL Nucleated RBCs 1 H (0-0) /100 WBC PT (9.0-12.0) sec INR (<1.2) APTT (22.0-30.0) sec ABG pH 7.31 L (7.35-7.45) ABG pO2 82 L (83-108) mmHg ABG HCO3 20 L (21-25) mmol/L ABG Total CO2 (19-24) mmol/L ABG O2 Saturation (94-97) % Sodium (137-145) mmol/L Carbon Dioxide (22-30) mmol/L BUN (9-20) mg/dL Creatinine (0.66-1.25) mg/dL Glucose (74-99) mg/dL POC Glucose (mg/dL) 193 H (70-110) mg/dL Plasma Lactic Acid Tashi (0.7-2.0) mmol/L Calcium (8.4-10.2) mg/dL Ionized Calcium Gage (4.5-5.3) mg/dL Total Bilirubin (0.2-1.3) mg/dL AST (17-59) U/L ALT (4-49) U/L Alkaline Phosphatase (38-126) U/L C-Reactive Protein (<1.0) mg/dL Total Protein (6.3-8.2) g/dL Albumin (3.5-5.0) g/dL Procalcitonin (0.02-0.09) ng/mL Crossmatch 04/22/22 04/22/22 04/22/22 Range/Units 00:30 01:12 02:12 WBC (3.8-10.6) k/uL RBC (4.30-5.90) m/uL Hgb (13.0-17.5) gm/dL Hct (39.0-53.0) % RDW (11.5-15.5) % Neutrophils # (Manual) (1.3-7.7) k/uL Monocytes # (Manual) (0-1.0) k/uL Metamyelocytes # (Man) (0) k/uL Myelocytes # (Manual) (0) k/uL Nucleated RBCs (0-0) /100 WBC PT (9.0-12.0) sec INR (<1.2) APTT (22.0-30.0) sec ABG pH (7.35-7.45) ABG pO2 (83-108) mmHg ABG HCO3 (21-25) mmol/L ABG Total CO2 (19-24) mmol/L ABG O2 Saturation (94-97) % Sodium (137-145) mmol/L Carbon Dioxide (22-30) mmol/L BUN (9-20) mg/dL Creatinine (0.66-1.25) mg/dL Glucose (74-99) mg/dL POC Glucose (mg/dL) 194 H 200 H (70-110) mg/dL Plasma Lactic Acid Tashi 13.5 H* (0.7-2.0) mmol/L Calcium (8.4-10.2) mg/dL Ionized Calcium Gage (4.5-5.3) mg/dL Total Bilirubin (0.2-1.3) mg/dL AST (17-59) U/L ALT (4-49) U/L Alkaline Phosphatase (38-126) U/L C-Reactive Protein (<1.0) mg/dL Total Protein (6.3-8.2) g/dL Albumin (3.5-5.0) g/dL Procalcitonin (0.02-0.09) ng/mL Crossmatch 04/22/22 04/22/22 04/22/22 Range/Units 02:20 03:35 04:00 WBC 40.4 H (3.8-10.6) k/uL RBC 3.45 L (4.30-5.90) m/uL Hgb 10.5 L (13.0-17.5) gm/dL Hct 29.6 L (39.0-53.0) % RDW 16.9 H (11.5-15.5) % Neutrophils # (Manual) 38.70 H (1.3-7.7) k/uL Monocytes # (Manual) (0-1.0) k/uL Metamyelocytes # (Man) (0) k/uL Myelocytes # (Manual) (0) k/uL Nucleated RBCs 1 H (0-0) /100 WBC PT (9.0-12.0) sec INR (<1.2) APTT (22.0-30.0) sec ABG pH 7.32 L (7.35-7.45) ABG pO2 78 L (83-108) mmHg ABG HCO3 (21-25) mmol/L ABG Total CO2 (19-24) mmol/L ABG O2 Saturation (94-97) % Sodium (137-145) mmol/L Carbon Dioxide (22-30) mmol/L BUN (9-20) mg/dL Creatinine (0.66-1.25) mg/dL Glucose (74-99) mg/dL POC Glucose (mg/dL) 200 H (70-110) mg/dL Plasma Lactic Acid Tashi (0.7-2.0) mmol/L Calcium (8.4-10.2) mg/dL Ionized Calcium Gage (4.5-5.3) mg/dL Total Bilirubin (0.2-1.3) mg/dL AST (17-59) U/L ALT (4-49) U/L Alkaline Phosphatase (38-126) U/L C-Reactive Protein (<1.0) mg/dL Total Protein (6.3-8.2) g/dL Albumin (3.5-5.0) g/dL Procalcitonin (0.02-0.09) ng/mL Crossmatch 04/22/22 04/22/22 04/22/22 Range/Units 04:00 04:00 04:00 WBC (3.8-10.6) k/uL RBC (4.30-5.90) m/uL Hgb (13.0-17.5) gm/dL Hct (39.0-53.0) % RDW (11.5-15.5) % Neutrophils # (Manual) (1.3-7.7) k/uL Monocytes # (Manual) (0-1.0) k/uL Metamyelocytes # (Man) (0) k/uL Myelocytes # (Manual) (0) k/uL Nucleated RBCs (0-0) /100 WBC PT 15.6 H (9.0-12.0) sec INR 1.5 H (<1.2) APTT 34.8 H (22.0-30.0) sec ABG pH (7.35-7.45) ABG pO2 (83-108) mmHg ABG HCO3 (21-25) mmol/L ABG Total CO2 (19-24) mmol/L ABG O2 Saturation (94-97) % Sodium (137-145) mmol/L Carbon Dioxide 21 L (22-30) mmol/L BUN 53 H (9-20) mg/dL Creatinine 2.26 H (0.66-1.25) mg/dL Glucose 185 H (74-99) mg/dL POC Glucose (mg/dL) (70-110) mg/dL Plasma Lactic Acid Tashi 13.6 H* (0.7-2.0) mmol/L Calcium 6.5 L (8.4-10.2) mg/dL Ionized Calcium Gage 3.7 L (4.5-5.3) mg/dL Total Bilirubin 2.5 H (0.2-1.3) mg/dL AST 3211 H (17-59) U/L ALT 1040 H (4-49) U/L Alkaline Phosphatase 232 H (38-126) U/L C-Reactive Protein (<1.0) mg/dL Total Protein 4.2 L (6.3-8.2) g/dL Albumin 2.0 L (3.5-5.0) g/dL Procalcitonin (0.02-0.09) ng/mL Crossmatch 04/22/22 04/22/22 04/22/22 Range/Units 04:17 04:29 05:16 WBC (3.8-10.6) k/uL RBC (4.30-5.90) m/uL Hgb (13.0-17.5) gm/dL Hct (39.0-53.0) % RDW (11.5-15.5) % Neutrophils # (Manual) (1.3-7.7) k/uL Monocytes # (Manual) (0-1.0) k/uL Metamyelocytes # (Man) (0) k/uL Myelocytes # (Manual) (0) k/uL Nucleated RBCs (0-0) /100 WBC PT (9.0-12.0) sec INR (<1.2) APTT (22.0-30.0) sec ABG pH 7.32 L (7.35-7.45) ABG pO2 65 L (83-108) mmHg ABG HCO3 (21-25) mmol/L ABG Total CO2 (19-24) mmol/L ABG O2 Saturation 92.3 L (94-97) % Sodium (137-145) mmol/L Carbon Dioxide (22-30) mmol/L BUN (9-20) mg/dL Creatinine (0.66-1.25) mg/dL Glucose (74-99) mg/dL POC Glucose (mg/dL) 196 H 190 H (70-110) mg/dL Plasma Lactic Acid Tashi (0.7-2.0) mmol/L Calcium (8.4-10.2) mg/dL Ionized Calcium Gage (4.5-5.3) mg/dL Total Bilirubin (0.2-1.3) mg/dL AST (17-59) U/L ALT (4-49) U/L Alkaline Phosphatase (38-126) U/L C-Reactive Protein (<1.0) mg/dL Total Protein (6.3-8.2) g/dL Albumin (3.5-5.0) g/dL Procalcitonin (0.02-0.09) ng/mL Crossmatch 04/22/22 04/22/22 04/22/22 Range/Units 06:09 06:16 07:08 WBC (3.8-10.6) k/uL RBC (4.30-5.90) m/uL Hgb (13.0-17.5) gm/dL Hct (39.0-53.0) % RDW (11.5-15.5) % Neutrophils # (Manual) (1.3-7.7) k/uL Monocytes # (Manual) (0-1.0) k/uL Metamyelocytes # (Man) (0) k/uL Myelocytes # (Manual) (0) k/uL Nucleated RBCs (0-0) /100 WBC PT (9.0-12.0) sec INR (<1.2) APTT (22.0-30.0) sec ABG pH 7.33 L (7.35-7.45) ABG pO2 59 L* (83-108) mmHg ABG HCO3 (21-25) mmol/L ABG Total CO2 (19-24) mmol/L ABG O2 Saturation 89.4 L (94-97) % Sodium (137-145) mmol/L Carbon Dioxide (22-30) mmol/L BUN (9-20) mg/dL Creatinine (0.66-1.25) mg/dL Glucose (74-99) mg/dL POC Glucose (mg/dL) 175 H 168 H (70-110) mg/dL Plasma Lactic Acid Tashi (0.7-2.0) mmol/L Calcium (8.4-10.2) mg/dL Ionized Calcium Gage (4.5-5.3) mg/dL Total Bilirubin (0.2-1.3) mg/dL AST (17-59) U/L ALT (4-49) U/L Alkaline Phosphatase (38-126) U/L C-Reactive Protein (<1.0) mg/dL Total Protein (6.3-8.2) g/dL Albumin (3.5-5.0) g/dL Procalcitonin (0.02-0.09) ng/mL Crossmatch 04/22/22 04/22/22 04/22/22 Range/Units 07:09 08:06 08:23 WBC 38.1 H (3.8-10.6) k/uL RBC 3.57 L (4.30-5.90) m/uL Hgb 9.8 L (13.0-17.5) gm/dL Hct 30.6 L (39.0-53.0) % RDW 17.3 H (11.5-15.5) % Neutrophils # (Manual) (1.3-7.7) k/uL Monocytes # (Manual) (0-1.0) k/uL Metamyelocytes # (Man) (0) k/uL Myelocytes # (Manual) (0) k/uL Nucleated RBCs (0-0) /100 WBC PT (9.0-12.0) sec INR (<1.2) APTT (22.0-30.0) sec ABG pH (7.35-7.45) ABG pO2 (83-108) mmHg ABG HCO3 (21-25) mmol/L ABG Total CO2 (19-24) mmol/L ABG O2 Saturation (94-97) % Sodium (137-145) mmol/L Carbon Dioxide (22-30) mmol/L BUN (9-20) mg/dL Creatinine (0.66-1.25) mg/dL Glucose (74-99) mg/dL POC Glucose (mg/dL) 201 H (70-110) mg/dL Plasma Lactic Acid Tashi 12.1 H* (0.7-2.0) mmol/L Calcium (8.4-10.2) mg/dL Ionized Calcium Gage (4.5-5.3) mg/dL Total Bilirubin (0.2-1.3) mg/dL AST (17-59) U/L ALT (4-49) U/L Alkaline Phosphatase (38-126) U/L C-Reactive Protein (<1.0) mg/dL Total Protein (6.3-8.2) g/dL Albumin (3.5-5.0) g/dL Procalcitonin (0.02-0.09) ng/mL Crossmatch 04/22/22 04/22/22 04/22/22 Range/Units 08:24 08:34 09:10 WBC (3.8-10.6) k/uL RBC (4.30-5.90) m/uL Hgb (13.0-17.5) gm/dL Hct (39.0-53.0) % RDW (11.5-15.5) % Neutrophils # (Manual) (1.3-7.7) k/uL Monocytes # (Manual) (0-1.0) k/uL Metamyelocytes # (Man) (0) k/uL Myelocytes # (Manual) (0) k/uL Nucleated RBCs (0-0) /100 WBC PT (9.0-12.0) sec INR (<1.2) APTT (22.0-30.0) sec ABG pH 7.33 L (7.35-7.45) ABG pO2 53 L* (83-108) mmHg ABG HCO3 (21-25) mmol/L ABG Total CO2 (19-24) mmol/L ABG O2 Saturation 84.9 L (94-97) % Sodium (137-145) mmol/L Carbon Dioxide (22-30) mmol/L BUN (9-20) mg/dL Creatinine (0.66-1.25) mg/dL Glucose (74-99) mg/dL POC Glucose (mg/dL) 164 H 154 H (70-110) mg/dL Plasma Lactic Acid Tashi (0.7-2.0) mmol/L Calcium (8.4-10.2) mg/dL Ionized Calcium Gage (4.5-5.3) mg/dL Total Bilirubin (0.2-1.3) mg/dL AST (17-59) U/L ALT (4-49) U/L Alkaline Phosphatase (38-126) U/L C-Reactive Protein (<1.0) mg/dL Total Protein (6.3-8.2) g/dL Albumin (3.5-5.0) g/dL Procalcitonin (0.02-0.09) ng/mL Crossmatch Microbiology - Last 24 Hours (Table) 04/20/22 23:57 Gram Stain - Preliminary Sputum Sputum Culture - Preliminary Assessment and Plan (1) GI bleed Narrative/Plan: Patient remains critically low at this time. Overall prognosis is extremely poor. Patient's family has changed a CODE STATUS to no cold which is certainly reasonable. Plan is to continue supportive care throughout the morning and afternoon and see how the patient responds. If no further improvements patient's family is considering comfort measures which is certainly reasonable. Patient likely has some degree of ischemia to the bowel just as his lab values suggest global ischemia. I do not believe that following through with the CT angiogram at this time would change the patient's clinical course. Continue supportive care. We'll follow closely. Case discussed with the patient's and son at the bedside. Current Visit: Yes Status: Acute Code(s): K92.2 - GASTROINTESTINAL HEMORRHAGE, UNSPECIFIED SNOMED Code(s): 74065617
[2022-04-22] MEDS: ASCORBIC ACID 500 MG TAB PO SCH (10:12)
[2022-04-22] MEDS: PRIMIDONE 250 MG TAB PO SCH (10:12)
[2022-04-22] MEDS: CHOLECALCIFEROL 25 MCG (1000 IU) TABLET PO SCH (10:12)
[2022-04-22] MEDS: PANTOPRAZOLE 40 MG/10 ML VIAL IVP SCH (10:13)
[2022-04-22] MEDS: CHLORHEXIDINE GLUCONATE 15 ML CUP MUCOUS MEM SCH (10:14)
[2022-04-22] MEDS: DEXTROSE 5% IN WATER 1,000 ML with SODIUM BICARB (1 MEQ/ML) 150 ML IV SCH (10:15)
[2022-04-22 10:16] LABS: Potassium 4.4 mmol/L (3.5-5.1)
--- NOTE | 2022-04-22 11:35 | P.PN ---
Subjective Progress Note Date: 04/22/22 Principal diagnosis: Coronary artery disease. Past medical history significant for hypertension, hyperlipidemia, insulin-dependent diabetes, previous tobacco dependence, mild COPD, asthma, liver cirrhosis, Leonard's esophagus, PAD, melanoma skin cancer, chronic iron deficiency anemia, essential tremors, depression, history of polyp to his transverse colon, chronic episodes of diarrhea with history of 80 pound weight loss in a 1 year duration status post colonoscopy in June 2019 which revealed scattered sigmoid diverticula cyst and internal hemorrhoids, and a family history of coronary artery disease POD #11 off-pump coronary artery bypass grafting 4 with left internal mammary artery to the left anterior descending artery, left radial artery graft to the first obtuse marginal artery, reverse saphenous vein graft to the first diagonal artery, reverse saphenous vein graft to the posterior lateral branch of the right coronary artery, ligation of the left atrial appendage with a 35 mm AtriCure clamp, endovascular vein harvest of bilateral greater saphenous vein and endovascular left radial artery harvest. Intraoperative transesophageal echocardiogram performed by anesthesia. Postoperative acute blood loss anemia, expected given hemodilution and preoperative anemia. Left-sided pleural effusion, status post day #1 left-sided thoracentesis performed by Dr. Wells. Acute hypoxic respiratory failure requiring reintubation and mechanical ventilator support. The patient was seen and examined at his bedside today 04/21/2022 in the intensive care unit. The patient was ready to be discharged to subacute rehab yesterday when he developed a bloody stool. A repeat hemoglobin was checked chest today 7.1 with hematocrit 22.9 and platelets 332. He was transfused for 2 units of packed red blood cells. Subsequently became hypotensive and was started on a norepinephrine drip which is currently running at 15.5 mcg/m and a D5W with 150 mEq of sodium bicarb running at 100 mL per hour. Patient also had a left-sided pleural effusion and underwent a left-sided thoracentesis yesterday by Dr. Wells with 300 mL of turbid colored fluid drained. The patient became more unstable and developed acute hypoxic respiratory distress requiring reintubation, he currently remains intubated with mechanical ventilator support, current mechanical ventilator settings are assist control 24, tidal volume 450, FiO2 65% and a PEEP of 5. Oxygen saturations are 93% on current mechanical ventilator settings. Arterial blood gas results this morning showed a pH of 7.45, pCO2 30, pO2 64, HCO3 21, base excess -2.7 and oxygen saturation is 93.7%. Laboratory results this potentially W CBC count of 35.5, hemoglobin 8.0, hematocrit 24.8, platelets 305, sodium 136, potassium 4.7, chloride 102, CO2 21, BUN 45, creatinine 1.68, glucose 135, calcium 6.1, ionized calcium 3.7, PT 13.4, INR 1.3, PTT 33.1, fibrinogen level 378, AST 3741, ALT 1106, alk phos 157, and albumin 2.0. Lactic acid level this morning is 7.3. Due to the bloody stool Dr. Dixon from general surgery was consulted and the patient underwent a computed tomography scan of his abdomen/pelvis which showed extensive bilateral lower lobe pulmonary consolidation, atelectasis, small pleural effusions, a small pericardial effusion, a small hiatal hernia and a fatty infiltration of the liver which is unchanged from a previous exam according to the report. No acute abnormality was seen in the abdomen or pelvis. Currently the patient remains sedated on propofol drip. OG tube is in place to low intermittent wall suction with bilious colored drainage. The patient's daughter is present at his bedside and has been updated on his care. Objective - Vital Signs Vital signs: Vital Signs Temp 98.1 F 04/22/22 04:00 Pulse 103 H 04/22/22 09:30 Resp 28 H 04/22/22 09:30 BP 129/58 04/22/22 09:30 Pulse Ox 80 L 04/22/22 09:30 FiO2 100 04/22/22 07:21 Intake & Output 04/21/22 04/22/22 04/22/22 18:59 06:59 18:59 Intake Total 4394.479 2772.430 485.225 Output Total 295 285 58 Balance 4099.479 2487.430 427.225 Weight 113.1 kg Intake: IV 2707 372 118 0.9NS Pressure Bag 57 72 18 Calcium Gluconate in NaCl 100 2 gm In Saline 1 100ml. bag @ 100 mls/hr IVPB ONCE ONE Rx#:[id number] Cefepime 2 gm In Sodium 100 Chloride 0.9% 100 ml @ 25 mls/hr IVPB Q12H [facility] Rx# :[id number] Dextrose 5% in Water 1, 1200 300 100 000 ml @ 100 mls/hr IV . [id number] [facility] with Sodium Bicarb (1 Meq/ml) 150 ml Rx#:[id number] Sodium Chloride 0.9% 1, 1000 000 ml @ 999 mls/hr IV . Q1H1M ONE Rx#:[id number] Vancomycin 1,000 mg In 250 Sodium Chloride 0.9% 250 ml @ 125 mls/hr IVPB ONCE STA Rx#:[id number] Intake, IV Titration 286.029 7795.430 367.225 Amount Calcium Gluconate in NaCl 100 1 gm In Saline 1 100ml. bag @ 100 mls/hr IVPB ONCE ONE Rx#:[id number] Cisatracurium 200 mg In 33.39 81.694 Sodium Chloride 0.9% 180 ml @ 2 MCG/KG/MIN 13.356 mls/hr IV .[id number] [facility] Rx #:[id number] Dextrose 5% in Water 1, 800 200 000 ml @ 100 mls/hr IV . [id number] [facility] with Sodium Bicarb (1 Meq/ml) 150 ml Rx#:[id number] Insulin Regular 100 unit 5.647 21.193 26.529 In Sodium Chloride 0.9% 100 ml @ Per Protocol IV .Q0M [facility] Rx#:[id number] Lidocaine-D5w Pmx 2G/ 201 115 250Ml 2,000 mg In Dextrose/Water 1 250ml. bag @ 2 MG/MIN 15 mls/hr IV .[id number] [facility] Rx#: [id number] Norepinephrine 32 mg In 48.588 230.869 25.696 Sodium Chloride 0.9% 218 ml @ 0.03 MCG/KG/MIN 1. 565 mls/hr IV .Q24H [facility] Rx#:[id number] Norepinephrine 4 mg In 355.739 Sodium Chloride 0.9% 250 ml @ 0.03 MCG/KG/MIN 12. 687 mls/hr IV .Q20H2M [facility] Rx#:[id number] Vasopressin 60 unit In 99.986 Sodium Chloride 0.9% 150 ml @ 0.04 UNITS/MIN 6.12 mls/hr IV .Q24H [facility] Rx#: [id number] propofoL 1,000 mg In 273.115 Empty Bag 1 bag @ 15 MCG/ KG/MIN 9.99 mls/hr IV . Q10H1M [facility] Rx#:[id number] propofoL 1,000 mg In 245.688 Empty Bag 1 bag @ 15 MCG/ KG/MIN 9.99 mls/hr IV . Q10H1M [facility] Rx#:[id number] Blood Product 721 620 Platelet Pheresis Pas 361 Psoralen Unit [id number] As-1 Unit 310 [id number] Rc As-1 Unit 310 [id number] Albumin 250 Albumin Human 5% 250 ml @ 250 0 mls/hr IVPB .[facility] ONE Rx#:[id number] Output: Urine 295 285 58 Other: Voiding Method Indwelling Catheter Indwelling Catheter # Bowel Movements 1 0 ABP, PAP, CO, CI - Last Documented Arterial Blood Pressure 121/46 Pulmonary Artery Pressure 38/5 Cardiac Output 5.5 Cardiac Index 2.5 - Exam CONSTITUTIONAL: Lying in bed in the intensive care unit. There is sedated on propofol drip, is intubated with mechanical ventilator support. RESPIRATORY: Lungs sounds diminished bilaterally. Respirations are symmetrical, nonlabored on mechanical ventilator support. Mechanical ventilator settings are assist control 24, tidal volume 400, FiO2 100% and a PEEP of 24, oxygen saturation is 87 percent on current mechanical ventilator settings. CARDIOVASCULAR: S1, S2 present. Regular rate and rhythm, sinus rhythm on telemetry, heart rate 114 bpm. Sternum stable. Palpable peripheral pulses bilaterally. Generalized 2+ edema present. Heart hugger in place. Antiembolism stockings, SCDs present. GASTROINTESTINAL: Abdomen soft, nondistended. Absent bowel sounds to all 4 abdominal quadrants. OG tube in place to low intermittent wall suction with bilious drainage. GENITOURINARY: Woods present draining clear, yellow urine. Urine output 20-30 mL per hour overnight. INTEGUMENTARY: Skin is warm and dry. Midline sternal incision is well approximated and covered with dry intact dressing. Bilateral lower extremity EVH sites well approximated without redness, left radial artery harvest sites clean, dry and intact. No redness or drainage present. NEUROLOGIC: Unable to accurately assess at this time as the patient remains sedated on propofol drip and Nimbex drip. MUSKULOSKELETAL: Unable to accurately assess at this time as the patient remains sedated on propofol drip and Nimbex drip. PSYCHIATRIC: Unable to accurately assess at this time as the patient remains sedated on propofol drip and Nimbex drip. INVASIVE LINES AND TUBES: Right IJ triple-lumen catheter. - Allied health notes Allied health notes reviewed: nursing - Labs CBC & Chem 7: 04/22/22 08:23 04/22/22 04:00 Labs: Abnormal Lab Results - Last 24 Hours (Table) 04/20/22 04/21/22 04/21/22 Range/Units 17:09 11:41 11:50 WBC (3.8-10.6) k/uL RBC (4.30-5.90) m/uL Hgb (13.0-17.5) gm/dL Hct (39.0-53.0) % RDW (11.5-15.5) % Neutrophils # (Manual) (1.3-7.7) k/uL Monocytes # (Manual) (0-1.0) k/uL Metamyelocytes # (Man) (0) k/uL Myelocytes # (Manual) (0) k/uL Nucleated RBCs (0-0) /100 WBC PT (9.0-12.0) sec INR (<1.2) APTT (22.0-30.0) sec ABG pH (7.35-7.45) ABG pCO2 (35-45) mmHg ABG pO2 (83-108) mmHg ABG HCO3 (21-25) mmol/L ABG Total CO2 (19-24) mmol/L ABG O2 Saturation (94-97) % Sodium (137-145) mmol/L Carbon Dioxide (22-30) mmol/L BUN (9-20) mg/dL Creatinine (0.66-1.25) mg/dL Glucose (74-99) mg/dL POC Glucose (mg/dL) 145 H (70-110) mg/dL Plasma Lactic Acid Tashi 11.4 H* (0.7-2.0) mmol/L Calcium (8.4-10.2) mg/dL Ionized Calcium Gage (4.5-5.3) mg/dL Total Bilirubin (0.2-1.3) mg/dL AST (17-59) U/L ALT (4-49) U/L Alkaline Phosphatase (38-126) U/L C-Reactive Protein (<1.0) mg/dL Total Protein (6.3-8.2) g/dL Albumin (3.5-5.0) g/dL Procalcitonin (0.02-0.09) ng/mL Crossmatch See Detail 04/21/22 04/21/22 04/21/22 Range/Units 11:50 11:50 12:04 WBC 40.9 H (3.8-10.6) k/uL RBC 2.56 L (4.30-5.90) m/uL Hgb 7.0 L (13.0-17.5) gm/dL Hct 22.2 L (39.0-53.0) % RDW 18.4 H (11.5-15.5) % Neutrophils # (Manual) 37.63 H (1.3-7.7) k/uL Monocytes # (Manual) 1.23 H (0-1.0) k/uL Metamyelocytes # (Man) (0) k/uL Myelocytes # (Manual) (0) k/uL Nucleated RBCs 3 H (0-0) /100 WBC PT (9.0-12.0) sec INR (<1.2) APTT (22.0-30.0) sec ABG pH 7.19 L* (7.35-7.45) ABG pCO2 (35-45) mmHg ABG pO2 70 L (83-108) mmHg ABG HCO3 16 L (21-25) mmol/L ABG Total CO2 17 L (19-24) mmol/L ABG O2 Saturation 89.1 L (94-97) % Sodium 136 L (137-145) mmol/L Carbon Dioxide 17 L (22-30) mmol/L BUN 45 H (9-20) mg/dL Creatinine 2.00 H (0.66-1.25) mg/dL Glucose 123 H (74-99) mg/dL POC Glucose (mg/dL) (70-110) mg/dL Plasma Lactic Acid Tashi (0.7-2.0) mmol/L Calcium 6.0 L* (8.4-10.2) mg/dL Ionized Calcium Gage (4.5-5.3) mg/dL Total Bilirubin (0.2-1.3) mg/dL AST 3133 H (17-59) U/L ALT 999 H (4-49) U/L Alkaline Phosphatase 167 H (38-126) U/L C-Reactive Protein (<1.0) mg/dL Total Protein 3.7 L (6.3-8.2) g/dL Albumin 1.8 L (3.5-5.0) g/dL Procalcitonin (0.02-0.09) ng/mL Crossmatch 04/21/22 04/21/22 04/21/22 Range/Units 12:19 14:38 14:42 WBC (3.8-10.6) k/uL RBC (4.30-5.90) m/uL Hgb (13.0-17.5) gm/dL Hct (39.0-53.0) % RDW (11.5-15.5) % Neutrophils # (Manual) (1.3-7.7) k/uL Monocytes # (Manual) (0-1.0) k/uL Metamyelocytes # (Man) (0) k/uL Myelocytes # (Manual) (0) k/uL Nucleated RBCs (0-0) /100 WBC PT (9.0-12.0) sec INR (<1.2) APTT (22.0-30.0) sec ABG pH 7.29 L (7.35-7.45) ABG pCO2 (35-45) mmHg ABG pO2 79 L (83-108) mmHg ABG HCO3 18 L (21-25) mmol/L ABG Total CO2 27 H (19-24) mmol/L ABG O2 Saturation (94-97) % Sodium (137-145) mmol/L Carbon Dioxide (22-30) mmol/L BUN (9-20) mg/dL Creatinine (0.66-1.25) mg/dL Glucose (74-99) mg/dL POC Glucose (mg/dL) 156 H (70-110) mg/dL Plasma Lactic Acid Tashi (0.7-2.0) mmol/L Calcium (8.4-10.2) mg/dL Ionized Calcium Gage (4.5-5.3) mg/dL Total Bilirubin (0.2-1.3) mg/dL AST (17-59) U/L ALT (4-49) U/L Alkaline Phosphatase (38-126) U/L C-Reactive Protein (<1.0) mg/dL Total Protein (6.3-8.2) g/dL Albumin (3.5-5.0) g/dL Procalcitonin (0.02-0.09) ng/mL Crossmatch 04/21/22 04/21/22 04/21/22 Range/Units 15:25 15:25 15:25 WBC 40.1 H (3.8-10.6) k/uL RBC 2.57 L (4.30-5.90) m/uL Hgb 7.3 L (13.0-17.5) gm/dL Hct 22.3 L (39.0-53.0) % RDW 18.5 H (11.5-15.5) % Neutrophils # (Manual) 37.20 H (1.3-7.7) k/uL Monocytes # (Manual) (0-1.0) k/uL Metamyelocytes # (Man) 0.40 H (0) k/uL Myelocytes # (Manual) 0.40 H (0) k/uL Nucleated RBCs 1 H (0-0) /100 WBC PT (9.0-12.0) sec INR (<1.2) APTT (22.0-30.0) sec ABG pH (7.35-7.45) ABG pCO2 (35-45) mmHg ABG pO2 (83-108) mmHg ABG HCO3 (21-25) mmol/L ABG Total CO2 (19-24) mmol/L ABG O2 Saturation (94-97) % Sodium (137-145) mmol/L Carbon Dioxide 18 L (22-30) mmol/L BUN 49 H (9-20) mg/dL Creatinine 1.96 H (0.66-1.25) mg/dL Glucose 141 H (74-99) mg/dL POC Glucose (mg/dL) (70-110) mg/dL Plasma Lactic Acid Tashi 11.9 H* (0.7-2.0) mmol/L Calcium 6.5 L (8.4-10.2) mg/dL Ionized Calcium Gage (4.5-5.3) mg/dL Total Bilirubin 1.6 H (0.2-1.3) mg/dL AST 3732 H (17-59) U/L ALT 1046 H (4-49) U/L Alkaline Phosphatase 203 H (38-126) U/L C-Reactive Protein (<1.0) mg/dL Total Protein 4.2 L (6.3-8.2) g/dL Albumin 2.1 L (3.5-5.0) g/dL Procalcitonin (0.02-0.09) ng/mL Crossmatch 04/21/22 04/21/22 04/21/22 Range/Units 15:25 15:25 15:25 WBC (3.8-10.6) k/uL RBC (4.30-5.90) m/uL Hgb (13.0-17.5) gm/dL Hct (39.0-53.0) % RDW (11.5-15.5) % Neutrophils # (Manual) (1.3-7.7) k/uL Monocytes # (Manual) (0-1.0) k/uL Metamyelocytes # (Man) (0) k/uL Myelocytes # (Manual) (0) k/uL Nucleated RBCs (0-0) /100 WBC PT (9.0-12.0) sec INR (<1.2) APTT (22.0-30.0) sec ABG pH (7.35-7.45) ABG pCO2 (35-45) mmHg ABG pO2 (83-108) mmHg ABG HCO3 (21-25) mmol/L ABG Total CO2 (19-24) mmol/L ABG O2 Saturation (94-97) % Sodium (137-145) mmol/L Carbon Dioxide (22-30) mmol/L BUN (9-20) mg/dL Creatinine (0.66-1.25) mg/dL Glucose (74-99) mg/dL POC Glucose (mg/dL) (70-110) mg/dL Plasma Lactic Acid Tashi (0.7-2.0) mmol/L Calcium (8.4-10.2) mg/dL Ionized Calcium Gage 3.9 L (4.5-5.3) mg/dL Total Bilirubin (0.2-1.3) mg/dL AST (17-59) U/L ALT (4-49) U/L Alkaline Phosphatase (38-126) U/L C-Reactive Protein 9.0 H (<1.0) mg/dL Total Protein (6.3-8.2) g/dL Albumin (3.5-5.0) g/dL Procalcitonin 3.83 H (0.02-0.09) ng/mL Crossmatch 04/21/22 04/21/22 04/21/22 Range/Units 15:31 16:29 17:10 WBC (3.8-10.6) k/uL RBC (4.30-5.90) m/uL Hgb (13.0-17.5) gm/dL Hct (39.0-53.0) % RDW (11.5-15.5) % Neutrophils # (Manual) (1.3-7.7) k/uL Monocytes # (Manual) (0-1.0) k/uL Metamyelocytes # (Man) (0) k/uL Myelocytes # (Manual) (0) k/uL Nucleated RBCs (0-0) /100 WBC PT (9.0-12.0) sec INR (<1.2) APTT (22.0-30.0) sec ABG pH 7.28 L (7.35-7.45) ABG pCO2 (35-45) mmHg ABG pO2 68 L (83-108) mmHg ABG HCO3 20 L (21-25) mmol/L ABG Total CO2 (19-24) mmol/L ABG O2 Saturation 91.5 L (94-97) % Sodium (137-145) mmol/L Carbon Dioxide (22-30) mmol/L BUN (9-20) mg/dL Creatinine (0.66-1.25) mg/dL Glucose (74-99) mg/dL POC Glucose (mg/dL) 158 H 189 H (70-110) mg/dL Plasma Lactic Acid Tashi (0.7-2.0) mmol/L Calcium (8.4-10.2) mg/dL Ionized Calcium Gage (4.5-5.3) mg/dL Total Bilirubin (0.2-1.3) mg/dL AST (17-59) U/L ALT (4-49) U/L Alkaline Phosphatase (38-126) U/L C-Reactive Protein (<1.0) mg/dL Total Protein (6.3-8.2) g/dL Albumin (3.5-5.0) g/dL Procalcitonin (0.02-0.09) ng/mL Crossmatch 04/21/22 04/21/22 04/21/22 Range/Units 18:10 18:25 19:12 WBC (3.8-10.6) k/uL RBC (4.30-5.90) m/uL Hgb (13.0-17.5) gm/dL Hct (39.0-53.0) % RDW (11.5-15.5) % Neutrophils # (Manual) (1.3-7.7) k/uL Monocytes # (Manual) (0-1.0) k/uL Metamyelocytes # (Man) (0) k/uL Myelocytes # (Manual) (0) k/uL Nucleated RBCs (0-0) /100 WBC PT (9.0-12.0) sec INR (<1.2) APTT (22.0-30.0) sec ABG pH 7.30 L (7.35-7.45) ABG pCO2 (35-45) mmHg ABG pO2 77 L (83-108) mmHg ABG HCO3 20 L (21-25) mmol/L ABG Total CO2 (19-24) mmol/L ABG O2 Saturation (94-97) % Sodium (137-145) mmol/L Carbon Dioxide (22-30) mmol/L BUN (9-20) mg/dL Creatinine (0.66-1.25) mg/dL Glucose (74-99) mg/dL POC Glucose (mg/dL) 137 H 147 H (70-110) mg/dL Plasma Lactic Acid Tashi (0.7-2.0) mmol/L Calcium (8.4-10.2) mg/dL Ionized Calcium Gage (4.5-5.3) mg/dL Total Bilirubin (0.2-1.3) mg/dL AST (17-59) U/L ALT (4-49) U/L Alkaline Phosphatase (38-126) U/L C-Reactive Protein (<1.0) mg/dL Total Protein (6.3-8.2) g/dL Albumin (3.5-5.0) g/dL Procalcitonin (0.02-0.09) ng/mL Crossmatch 04/21/22 04/21/2222 Range/Units 19:44 19:44 19:44 WBC 38.3 H (3.8-10.6) k/uL RBC 2.48 L (4.30-5.90) m/uL Hgb 7.1 L (13.0-17.5) gm/dL Hct 21.4 L (39.0-53.0) % RDW 18.3 H (11.5-15.5) % Neutrophils # (Manual) 37.10 H (1.3-7.7) k/uL Monocytes # (Manual) (0-1.0) k/uL Metamyelocytes # (Man) 0.38 H (0) k/uL Myelocytes # (Manual) (0) k/uL Nucleated RBCs 3 H (0-0) /100 WBC PT (9.0-12.0) sec INR (<1.2) APTT (22.0-30.0) sec ABG pH (7.35-7.45) ABG pCO2 (35-45) mmHg ABG pO2 (83-108) mmHg ABG HCO3 (21-25) mmol/L ABG Total CO2 (19-24) mmol/L ABG O2 Saturation (94-97) % Sodium (137-145) mmol/L Carbon Dioxide 19 L (22-30) mmol/L BUN 50 H (9-20) mg/dL Creatinine 2.11 H (0.66-1.25) mg/dL Glucose 139 H (74-99) mg/dL POC Glucose (mg/dL) (70-110) mg/dL Plasma Lactic Acid Tashi 12.8 H* (0.7-2.0) mmol/L Calcium 6.7 L (8.4-10.2) mg/dL Ionized Calcium Gage (4.5-5.3) mg/dL Total Bilirubin 1.6 H (0.2-1.3) mg/dL AST 3484 H (17-59) U/L ALT 989 H (4-49) U/L Alkaline Phosphatase 226 H (38-126) U/L C-Reactive Protein (<1.0) mg/dL Total Protein 4.1 L (6.3-8.2) g/dL Albumin 2.0 L (3.5-5.0) g/dL Procalcitonin (0.02-0.09) ng/mL Crossmatch 04/21/22 04/21/22 04/21/22 Range/Units 19:44 20:22 20:50 WBC (3.8-10.6) k/uL RBC (4.30-5.90) m/uL Hgb (13.0-17.5) gm/dL Hct (39.0-53.0) % RDW (11.5-15.5) % Neutrophils # (Manual) (1.3-7.7) k/uL Monocytes # (Manual) (0-1.0) k/uL Metamyelocytes # (Man) (0) k/uL Myelocytes # (Manual) (0) k/uL Nucleated RBCs (0-0) /100 WBC PT (9.0-12.0) sec INR (<1.2) APTT (22.0-30.0) sec ABG pH 7.30 L (7.35-7.45) ABG pCO2 (35-45) mmHg ABG pO2 (83-108) mmHg ABG HCO3 19 L (21-25) mmol/L ABG Total CO2 (19-24) mmol/L ABG O2 Saturation 97.4 H (94-97) % Sodium (137-145) mmol/L Carbon Dioxide (22-30) mmol/L BUN (9-20) mg/dL Creatinine (0.66-1.25) mg/dL Glucose (74-99) mg/dL POC Glucose (mg/dL) 163 H (70-110) mg/dL Plasma Lactic Acid Tashi (0.7-2.0) mmol/L Calcium (8.4-10.2) mg/dL Ionized Calcium Gage 3.8 L (4.5-5.3) mg/dL Total Bilirubin (0.2-1.3) mg/dL AST (17-59) U/L ALT (4-49) U/L Alkaline Phosphatase (38-126) U/L C-Reactive Protein (<1.0) mg/dL Total Protein (6.3-8.2) g/dL Albumin (3.5-5.0) g/dL Procalcitonin (0.02-0.09) ng/mL Crossmatch 04/21/22 04/21/22 04/21/22 Range/Units 21:52 22:26 22:52 WBC (3.8-10.6) k/uL RBC (4.30-5.90) m/uL Hgb (13.0-17.5) gm/dL Hct (39.0-53.0) % RDW (11.5-15.5) % Neutrophils # (Manual) (1.3-7.7) k/uL Monocytes # (Manual) (0-1.0) k/uL Metamyelocytes # (Man) (0) k/uL Myelocytes # (Manual) (0) k/uL Nucleated RBCs (0-0) /100 WBC PT (9.0-12.0) sec INR (<1.2) APTT (22.0-30.0) sec ABG pH 7.32 L (7.35-7.45) ABG pCO2 (35-45) mmHg ABG pO2 (83-108) mmHg ABG HCO3 20 L (21-25) mmol/L ABG Total CO2 (19-24) mmol/L ABG O2 Saturation 97.3 H (94-97) % Sodium (137-145) mmol/L Carbon Dioxide (22-30) mmol/L BUN (9-20) mg/dL Creatinine (0.66-1.25) mg/dL Glucose (74-99) mg/dL POC Glucose (mg/dL) 171 H 181 H (70-110) mg/dL Plasma Lactic Acid Tashi (0.7-2.0) mmol/L Calcium (8.4-10.2) mg/dL Ionized Calcium Gage (4.5-5.3) mg/dL Total Bilirubin (0.2-1.3) mg/dL AST (17-59) U/L ALT (4-49) U/L Alkaline Phosphatase (38-126) U/L C-Reactive Protein (<1.0) mg/dL Total Protein (6.3-8.2) g/dL Albumin (3.5-5.0) g/dL Procalcitonin (0.02-0.09) ng/mL Crossmatch 04/22/22 04/22/22 04/22/22 Range/Units 00:06 00:19 00:19 WBC 40.7 H (3.8-10.6) k/uL RBC 3.39 L (4.30-5.90) m/uL Hgb 9.9 L D (13.0-17.5) gm/dL Hct 29.1 L (39.0-53.0) % RDW 17.1 H (11.5-15.5) % Neutrophils # (Manual) 38.60 H (1.3-7.7) k/uL Monocytes # (Manual) (0-1.0) k/uL Metamyelocytes # (Man) 0.41 H (0) k/uL Myelocytes # (Manual) (0) k/uL Nucleated RBCs 1 H (0-0) /100 WBC PT (9.0-12.0) sec INR (<1.2) APTT (22.0-30.0) sec ABG pH 7.31 L (7.35-7.45) ABG pCO2 (35-45) mmHg ABG pO2 82 L (83-108) mmHg ABG HCO3 20 L (21-25) mmol/L ABG Total CO2 (19-24) mmol/L ABG O2 Saturation (94-97) % Sodium (137-145) mmol/L Carbon Dioxide (22-30) mmol/L BUN (9-20) mg/dL Creatinine (0.66-1.25) mg/dL Glucose (74-99) mg/dL POC Glucose (mg/dL) 193 H (70-110) mg/dL Plasma Lactic Acid Tashi (0.7-2.0) mmol/L Calcium (8.4-10.2) mg/dL Ionized Calcium Gage (4.5-5.3) mg/dL Total Bilirubin (0.2-1.3) mg/dL AST (17-59) U/L ALT (4-49) U/L Alkaline Phosphatase (38-126) U/L C-Reactive Protein (<1.0) mg/dL Total Protein (6.3-8.2) g/dL Albumin (3.5-5.0) g/dL Procalcitonin (0.02-0.09) ng/mL Crossmatch 04/22/22 04/22/22 04/22/22 Range/Units 00:30 01:12 02:12 WBC (3.8-10.6) k/uL RBC (4.30-5.90) m/uL Hgb (13.0-17.5) gm/dL Hct (39.0-53.0) % RDW (11.5-15.5) % Neutrophils # (Manual) (1.3-7.7) k/uL Monocytes # (Manual) (0-1.0) k/uL Metamyelocytes # (Man) (0) k/uL Myelocytes # (Manual) (0) k/uL Nucleated RBCs (0-0) /100 WBC PT (9.0-12.0) sec INR (<1.2) APTT (22.0-30.0) sec ABG pH (7.35-7.45) ABG pCO2 (35-45) mmHg ABG pO2 (83-108) mmHg ABG HCO3 (21-25) mmol/L ABG Total CO2 (19-24) mmol/L ABG O2 Saturation (94-97) % Sodium (137-145) mmol/L Carbon Dioxide (22-30) mmol/L BUN (9-20) mg/dL Creatinine (0.66-1.25) mg/dL Glucose (74-99) mg/dL POC Glucose (mg/dL) 194 H 200 H (70-110) mg/dL Plasma Lactic Acid Tashi 13.5 H* (0.7-2.0) mmol/L Calcium (8.4-10.2) mg/dL Ionized Calcium Gage (4.5-5.3) mg/dL Total Bilirubin (0.2-1.3) mg/dL AST (17-59) U/L ALT (4-49) U/L Alkaline Phosphatase (38-126) U/L C-Reactive Protein (<1.0) mg/dL Total Protein (6.3-8.2) g/dL Albumin (3.5-5.0) g/dL Procalcitonin (0.02-0.09) ng/mL Crossmatch 04/22/22 04/22/22 04/22/22 Range/Units 02:20 03:35 04:00 WBC 40.4 H (3.8-10.6) k/uL RBC 3.45 L (4.30-5.90) m/uL Hgb 10.5 L (13.0-17.5) gm/dL Hct 29.6 L (39.0-53.0) % RDW 16.9 H (11.5-15.5) % Neutrophils # (Manual) 38.70 H (1.3-7.7) k/uL Monocytes # (Manual) (0-1.0) k/uL Metamyelocytes # (Man) (0) k/uL Myelocytes # (Manual) (0) k/uL Nucleated RBCs 1 H (0-0) /100 WBC PT (9.0-12.0) sec INR (<1.2) APTT (22.0-30.0) sec ABG pH 7.32 L (7.35-7.45) ABG pCO2 (35-45) mmHg ABG pO2 78 L (83-108) mmHg ABG HCO3 (21-25) mmol/L ABG Total CO2 (19-24) mmol/L ABG O2 Saturation (94-97) % Sodium (137-145) mmol/L Carbon Dioxide (22-30) mmol/L BUN (9-20) mg/dL Creatinine (0.66-1.25) mg/dL Glucose (74-99) mg/dL POC Glucose (mg/dL) 200 H (70-110) mg/dL Plasma Lactic Acid Tashi (0.7-2.0) mmol/L Calcium (8.4-10.2) mg/dL Ionized Calcium Gage (4.5-5.3) mg/dL Total Bilirubin (0.2-1.3) mg/dL AST (17-59) U/L ALT (4-49) U/L Alkaline Phosphatase (38-126) U/L C-Reactive Protein (<1.0) mg/dL Total Protein (6.3-8.2) g/dL Albumin (3.5-5.0) g/dL Procalcitonin (0.02-0.09) ng/mL Crossmatch 04/22/22 04/22/22 04/22/22 Range/Units 04:00 04:00 04:00 WBC (3.8-10.6) k/uL RBC (4.30-5.90) m/uL Hgb (13.0-17.5) gm/dL Hct (39.0-53.0) % RDW (11.5-15.5) % Neutrophils # (Manual) (1.3-7.7) k/uL Monocytes # (Manual) (0-1.0) k/uL Metamyelocytes # (Man) (0) k/uL Myelocytes # (Manual) (0) k/uL Nucleated RBCs (0-0) /100 WBC PT 15.6 H (9.0-12.0) sec INR 1.5 H (<1.2) APTT 34.8 H (22.0-30.0) sec ABG pH (7.35-7.45) ABG pCO2 (35-45) mmHg ABG pO2 (83-108) mmHg ABG HCO3 (21-25) mmol/L ABG Total CO2 (19-24) mmol/L ABG O2 Saturation (94-97) % Sodium (137-145) mmol/L Carbon Dioxide 21 L (22-30) mmol/L BUN 53 H (9-20) mg/dL Creatinine 2.26 H (0.66-1.25) mg/dL Glucose 185 H (74-99) mg/dL POC Glucose (mg/dL) (70-110) mg/dL Plasma Lactic Acid Tashi 13.6 H* (0.7-2.0) mmol/L Calcium 6.5 L (8.4-10.2) mg/dL Ionized Calcium Gage 3.7 L (4.5-5.3) mg/dL Total Bilirubin 2.5 H (0.2-1.3) mg/dL AST 3211 H (17-59) U/L ALT 1040 H (4-49) U/L Alkaline Phosphatase 232 H (38-126) U/L C-Reactive Protein (<1.0) mg/dL Total Protein 4.2 L (6.3-8.2) g/dL Albumin 2.0 L (3.5-5.0) g/dL Procalcitonin (0.02-0.09) ng/mL Crossmatch 04/22/22 04/22/22 04/22/22 Range/Units 04:17 04:29 05:16 WBC (3.8-10.6) k/uL RBC (4.30-5.90) m/uL Hgb (13.0-17.5) gm/dL Hct (39.0-53.0) % RDW (11.5-15.5) % Neutrophils # (Manual) (1.3-7.7) k/uL Monocytes # (Manual) (0-1.0) k/uL Metamyelocytes # (Man) (0) k/uL Myelocytes # (Manual) (0) k/uL Nucleated RBCs (0-0) /100 WBC PT (9.0-12.0) sec INR (<1.2) APTT (22.0-30.0) sec ABG pH 7.32 L (7.35-7.45) ABG pCO2 (35-45) mmHg ABG pO2 65 L (83-108) mmHg ABG HCO3 (21-25) mmol/L ABG Total CO2 (19-24) mmol/L ABG O2 Saturation 92.3 L (94-97) % Sodium (137-145) mmol/L Carbon Dioxide (22-30) mmol/L BUN (9-20) mg/dL Creatinine (0.66-1.25) mg/dL Glucose (74-99) mg/dL POC Glucose (mg/dL) 196 H 190 H (70-110) mg/dL Plasma Lactic Acid Tashi (0.7-2.0) mmol/L Calcium (8.4-10.2) mg/dL Ionized Calcium Gage (4.5-5.3) mg/dL Total Bilirubin (0.2-1.3) mg/dL AST (17-59) U/L ALT (4-49) U/L Alkaline Phosphatase (38-126) U/L C-Reactive Protein (<1.0) mg/dL Total Protein (6.3-8.2) g/dL Albumin (3.5-5.0) g/dL Procalcitonin (0.02-0.09) ng/mL Crossmatch 04/22/22 04/22/22 04/22/22 Range/Units 06:09 06:16 07:08 WBC (3.8-10.6) k/uL RBC (4.30-5.90) m/uL Hgb (13.0-17.5) gm/dL Hct (39.0-53.0) % RDW (11.5-15.5) % Neutrophils # (Manual) (1.3-7.7) k/uL Monocytes # (Manual) (0-1.0) k/uL Metamyelocytes # (Man) (0) k/uL Myelocytes # (Manual) (0) k/uL Nucleated RBCs (0-0) /100 WBC PT (9.0-12.0) sec INR (<1.2) APTT (22.0-30.0) sec ABG pH 7.33 L (7.35-7.45) ABG pCO2 (35-45) mmHg ABG pO2 59 L* (83-108) mmHg ABG HCO3 (21-25) mmol/L ABG Total CO2 (19-24) mmol/L ABG O2 Saturation 89.4 L (94-97) % Sodium (137-145) mmol/L Carbon Dioxide (22-30) mmol/L BUN (9-20) mg/dL Creatinine (0.66-1.25) mg/dL Glucose (74-99) mg/dL POC Glucose (mg/dL) 175 H 168 H (70-110) mg/dL Plasma Lactic Acid Tashi (0.7-2.0) mmol/L Calcium (8.4-10.2) mg/dL Ionized Calcium Gage (4.5-5.3) mg/dL Total Bilirubin (0.2-1.3) mg/dL AST (17-59) U/L ALT (4-49) U/L Alkaline Phosphatase (38-126) U/L C-Reactive Protein (<1.0) mg/dL Total Protein (6.3-8.2) g/dL Albumin (3.5-5.0) g/dL Procalcitonin (0.02-0.09) ng/mL Crossmatch 04/22/22 04/22/22 04/22/22 Range/Units 07:09 08:06 08:23 WBC 38.1 H (3.8-10.6) k/uL RBC 3.57 L (4.30-5.90) m/uL Hgb 9.8 L (13.0-17.5) gm/dL Hct 30.6 L (39.0-53.0) % RDW 17.3 H (11.5-15.5) % Neutrophils # (Manual) (1.3-7.7) k/uL Monocytes # (Manual) (0-1.0) k/uL Metamyelocytes # (Man) (0) k/uL Myelocytes # (Manual) (0) k/uL Nucleated RBCs (0-0) /100 WBC PT (9.0-12.0) sec INR (<1.2) APTT (22.0-30.0) sec ABG pH (7.35-7.45) ABG pCO2 (35-45) mmHg ABG pO2 (83-108) mmHg ABG HCO3 (21-25) mmol/L ABG Total CO2 (19-24) mmol/L ABG O2 Saturation (94-97) % Sodium (137-145) mmol/L Carbon Dioxide (22-30) mmol/L BUN (9-20) mg/dL Creatinine (0.66-1.25) mg/dL Glucose (74-99) mg/dL POC Glucose (mg/dL) 201 H (70-110) mg/dL Plasma Lactic Acid Tashi 12.1 H* (0.7-2.0) mmol/L Calcium (8.4-10.2) mg/dL Ionized Calcium Gage (4.5-5.3) mg/dL Total Bilirubin (0.2-1.3) mg/dL AST (17-59) U/L ALT (4-49) U/L Alkaline Phosphatase (38-126) U/L C-Reactive Protein (<1.0) mg/dL Total Protein (6.3-8.2) g/dL Albumin (3.5-5.0) g/dL Procalcitonin (0.02-0.09) ng/mL Crossmatch 04/22/22 04/22/22 04/22/22 Range/Units 08:24 08:34 09:10 WBC (3.8-10.6) k/uL RBC (4.30-5.90) m/uL Hgb (13.0-17.5) gm/dL Hct (39.0-53.0) % RDW (11.5-15.5) % Neutrophils # (Manual) (1.3-7.7) k/uL Monocytes # (Manual) (0-1.0) k/uL Metamyelocytes # (Man) (0) k/uL Myelocytes # (Manual) (0) k/uL Nucleated RBCs (0-0) /100 WBC PT (9.0-12.0) sec INR (<1.2) APTT (22.0-30.0) sec ABG pH 7.33 L (7.35-7.45) ABG pCO2 (35-45) mmHg ABG pO2 53 L* (83-108) mmHg ABG HCO3 (21-25) mmol/L ABG Total CO2 (19-24) mmol/L ABG O2 Saturation 84.9 L (94-97) % Sodium (137-145) mmol/L Carbon Dioxide (22-30) mmol/L BUN (9-20) mg/dL Creatinine (0.66-1.25) mg/dL Glucose (74-99) mg/dL POC Glucose (mg/dL) 164 H 154 H (70-110) mg/dL Plasma Lactic Acid Tashi (0.7-2.0) mmol/L Calcium (8.4-10.2) mg/dL Ionized Calcium Gage (4.5-5.3) mg/dL Total Bilirubin (0.2-1.3) mg/dL AST (17-59) U/L ALT (4-49) U/L Alkaline Phosphatase (38-126) U/L C-Reactive Protein (<1.0) mg/dL Total Protein (6.3-8.2) g/dL Albumin (3.5-5.0) g/dL Procalcitonin (0.02-0.09) ng/mL Crossmatch 04/22/22 Range/Units 09:46 WBC (3.8-10.6) k/uL RBC (4.30-5.90) m/uL Hgb (13.0-17.5) gm/dL Hct (39.0-53.0) % RDW (11.5-15.5) % Neutrophils # (Manual) (1.3-7.7) k/uL Monocytes # (Manual) (0-1.0) k/uL Metamyelocytes # (Man) (0) k/uL Myelocytes # (Manual) (0) k/uL Nucleated RBCs (0-0) /100 WBC PT (9.0-12.0) sec INR (<1.2) APTT (22.0-30.0) sec ABG pH 7.26 L (7.35-7.45) ABG pCO2 52 H (35-45) mmHg ABG pO2 45 L* (83-108) mmHg ABG HCO3 (21-25) mmol/L ABG Total CO2 25 H (19-24) mmol/L ABG O2 Saturation 73.1 L (94-97) % Sodium (137-145) mmol/L Carbon Dioxide (22-30) mmol/L BUN (9-20) mg/dL Creatinine (0.66-1.25) mg/dL Glucose (74-99) mg/dL POC Glucose (mg/dL) (70-110) mg/dL Plasma Lactic Acid Tashi (0.7-2.0) mmol/L Calcium (8.4-10.2) mg/dL Ionized Calcium Gage (4.5-5.3) mg/dL Total Bilirubin (0.2-1.3) mg/dL AST (17-59) U/L ALT (4-49) U/L Alkaline Phosphatase (38-126) U/L C-Reactive Protein (<1.0) mg/dL Total Protein (6.3-8.2) g/dL Albumin (3.5-5.0) g/dL Procalcitonin (0.02-0.09) ng/mL Crossmatch Microbiology - Last 24 Hours (Table) 04/20/22 23:57 Gram Stain - Preliminary Sputum Sputum Culture - Preliminary - Imaging and Cardiology Chest x-ray: report reviewed, image reviewed Assessment and Plan Assessment: 1. Coronary artery disease, status post four-vessel off-pump CABG 2. History of hypertension, currently hypotensive on norepinephrine and vasopr essin drips 3. Hyperlipidemia, treated, cholesterol 157, LDL 85, triglycerides 169 4. Insulin-dependent diabetes, preoperative hemoglobin A1c 9.4% 5. Previous tobacco dependence 6. Mild COPD, preoperative FEV1 62% of predicted 7. Asthma 8. Liver cirrhosis 9. Leonard's esophagus 10. PAD 11. Melanoma skin cancer 12. Chronic iron deficiency anemia 13. Essential tremors 14. Depression 15. Family history of coronary artery disease 16. Postoperative acute blood loss anemia, expected given hemodilution and preoperative anemia, and secondary to GI bleed 17. Acute GI bleed, 2 episodes of bloody stools 18. Acute hypoxic respiratory failure requiring reintubation and mechanical ventilator support 19. Acute shock liver, elevated liver enzymes, likely secondary to hypotension 20. Left-sided pleural effusion, status post left-sided thoracentesis by Dr. Wells with 300 mL of pleural fluid drained 21. Acute lactic acidosis 22. Acute shock with multisystem organ failure, possibly secondary to ischemic colitis, patient having diarrhea and some bloody stools 23. Cardiac arrest, secondary to episodes of ventricular tachycardia, with ACLS protocol initiated with return of spontaneous circulation 24. Acute shock liver 25. Acute kidney injury 26. Acute leukocytosis, WBC count 40.4 today with a positive bandemia Plan: 1. Continue to hold his aspirin, and Plavix due to the acute GI bleed. Continue to hold his atorvastatin due to his elevated liver enzymes. 2. Discontinue Lasix and metoprolol. Wean norepinephrine and vasopressin as tolerated to keep his systolic blood pressure greater than or equal to 100 mmHg. 3. Mechanical ventilator management per Dr. Wells's recommendations. Current mechanical ventilator settings are assist control 24, TV 400, FiO2 100% and a PEEP of 24. 4. CT scan of the abdomen/pelvis ordered by Dr. Dixon, although due to the patient's instability and critical illness it has not been completed. 5. Dr. Enrique spoke with the patient's family at length. Patient's family requesting comfort care measures and withdrawal of care. He has been made a DO NOT RESUSCITATE at this time with no progression and care. 6. Will monitor daily labs and chest x-rays. Electrolyte replacement per protocol. 7. GI/DVT prophylaxis. 8. Insulin management per primary care service, patient needs tighter blood sugar control. 9. Pain control with current medication regimen. Palliative care nurse practitioner has been consulted. 10. Continue Woods catheter for accurate I's and O's. Continue record strict inaccurate intake and outputs. Daily weights. 11. Strict accurate intake and output, daily weights 12. Propofol drip, Nimbex and sodium bicarbonate drips management per Dr. Wells's recommendations. 13. Continue to monitor ABGs every 2 hours and when necessary. 14. Maintaining OG tube to low intermittent wall suction. 15. Discontinue lidocaine drip. 16. Blood cultures 2 sets, stool for C. diff, sputum culture and urine culture results remain pending. 17. Continue cefepime and Flagyl for empiric about coverage. Infectious disease was consulted yesterday. He was given 1 dose of vancomycin 1 g IV piggyback. 18. Patient remains critically ill with very poor prognosis, as per family's wishes has been made a DO NOT RESUSCITATE with no progression and care. Palliative nurse practitioner has been consulted. 19. More recommendations to follow based on patient's clinical course. Time with Patient: Greater than 30
[2022-04-22 11:41] LABS: Albumin 2.1 g/dL (3.5-5.0); Calcium 6.8 mg/dL (8.4-10.2); Total Bilirubin 2.1 mg/dL (0.2-1.3); Total Protein 4.3 g/dL (6.3-8.2)
--- NOTE | 2022-04-22 11:52 | P.PN ---
Subjective Progress Note Date: 04/22/22 Principal diagnosis: CAD He was seen this am, he was pressors, nimbex, propofol, bicarb and lidocaine gtts. He underwent a left-sided thoracentesis yesterday by Dr. Wells with 300 mL of turbid colored fluid drained. He remains intubated on a mechanical ventilator. Family is at the bedside. The patient's was switched to a DNR/DNI CODE STATUS. His pro calcitonin level is elevated and the patient remains on a combination of cefepime and Flagyl. He was also given a dose of vancomycin yesterday. He is also on insulin drip which is running at 2 units an hour. Objective - Vital Signs Vital signs: Vital Signs Temp 98.1 F 04/22/22 04:00 Pulse 103 H 04/22/22 09:30 Resp 28 H 04/22/22 09:30 BP 129/58 04/22/22 09:30 Pulse Ox 80 L 04/22/22 09:30 FiO2 100 04/22/22 07:21 Intake & Output 04/21/22 04/22/22 04/22/22 18:59 06:59 18:59 Intake Total 4394.479 2772.430 660.203 Output Total 295 285 58 Balance 4099.479 2487.430 602.203 Weight 113.1 kg Intake: IV 2707 372 118 0.9NS Pressure Bag 57 72 18 Calcium Gluconate in NaCl 100 2 gm In Saline 1 100ml. bag @ 100 mls/hr IVPB ONCE ONE Rx#:[id number] Cefepime 2 gm In Sodium 100 Chloride 0.9% 100 ml @ 25 mls/hr IVPB Q12H [facility] Rx# :[id number] Dextrose 5% in Water 1, 1200 300 100 000 ml @ 100 mls/hr IV . [id number] [facility] with Sodium Bicarb (1 Meq/ml) 150 ml Rx#:[id number] Sodium Chloride 0.9% 1, 1000 000 ml @ 999 mls/hr IV . Q1H1M [facility] Rx#:[id number] Vancomycin 1,000 mg In 250 Sodium Chloride 0.9% 250 ml @ 125 mls/hr IVPB ONCE STA Rx#:[id number] Intake, IV Titration 127.891 8258.430 542.203 Amount Calcium Gluconate in NaCl 100 1 gm In Saline 1 100ml. bag @ 100 mls/hr IVPB ONCE ONE Rx#:[id number] Cisatracurium 200 mg In 33.39 81.694 41.515 Sodium Chloride 0.9% 180 ml @ 2 MCG/KG/MIN 13.356 mls/hr IV .[id number] [facility] Rx #:[id number] Dextrose 5% in Water 1, 800 200 000 ml @ 100 mls/hr IV . [id number] [facility] with Sodium Bicarb (1 Meq/ml) 150 ml Rx#:[id number] Insulin Regular 100 unit 5.647 21.193 26.529 In Sodium Chloride 0.9% 100 ml @ Per Protocol IV .Q0M [facility] Rx#:[id number] Lidocaine-D5w Pmx 2G/ 201 115 250Ml 2,000 mg In Dextrose/Water 1 250ml. bag @ 2 MG/MIN 15 mls/hr IV .[id number] [facility] Rx#: [id number] Norepinephrine 32 mg In 48.588 230.869 35.304 Sodium Chloride 0.9% 218 ml @ 0.03 MCG/KG/MIN 1. 565 mls/hr IV .Q24H [facility] Rx#:[id number] Norepinephrine 4 mg In 355.739 Sodium Chloride 0.9% 250 ml @ 0.03 MCG/KG/MIN 12. 687 mls/hr IV .Q20H2M [facility] Rx#:[id number] Vasopressin 60 unit In 99.986 32.946 Sodium Chloride 0.9% 150 ml @ 0.04 UNITS/MIN 6.12 mls/hr IV .Q24H [facility] Rx#: [id number] propofoL 1,000 mg In 273.115 Empty Bag 1 bag @ 15 MCG/ KG/MIN 9.99 mls/hr IV . Q10H1M [facility] Rx#:[id number] propofoL 1,000 mg In 245.688 90.909 Empty Bag 1 bag @ 15 MCG/ KG/MIN 9.99 mls/hr IV . Q10H1M [facility] Rx#:[id number] Blood Product 721 620 Platelet Pheresis Pas 361 Psoralen Unit [id number] Rc As-1 Unit 310 [id number] Rc As-1 Unit 310 [id number] Albumin 250 Albumin Human 5% 250 ml @ 250 0 mls/hr IVPB .[facility] Rx#:[id number] Output: Urine 295 285 58 Other: Voiding Method Indwelling Catheter Indwelling Catheter # Bowel Movements 1 0 ABP, PAP, CO, CI - Last Documented Arterial Blood Pressure 121/46 Pulmonary Artery Pressure 38/5 Cardiac Output 5.5 Cardiac Index 2.5 - Exam Gen: Intubated, sedated, on mechanical ventilation HEENT: normocephalic, atraumatic, moist mucous membranes Neck: supple. No JVD. Resp: Mechanical breath sounds bilaterally CVS: S1 and S2 WNL, no murmurs, regular, tachycardic GI: soft, NTTP, slightly distended : no SPT, no CVAT, rubio catheter is present MSK: Bilateral 1+ pitting edema, no clubbing Neuro: Sedated - Labs CBC & Chem 7: 04/22/22 08:23 04/22/22 08:23 Labs: Abnormal Lab Results - Last 24 Hours (Table) 04/20/22 04/21/22 04/21/22 Range/Units 17:09 11:50 11:50 WBC 40.9 H (3.8-10.6) k/uL RBC 2.56 L (4.30-5.90) m/uL Hgb 7.0 L (13.0-17.5) gm/dL Hct 22.2 L (39.0-53.0) % RDW 18.4 H (11.5-15.5) % Neutrophils # (Manual) 37.63 H (1.3-7.7) k/uL Monocytes # (Manual) 1.23 H (0-1.0) k/uL Metamyelocytes # (Man) (0) k/uL Myelocytes # (Manual) (0) k/uL Nucleated RBCs 3 H (0-0) /100 WBC PT (9.0-12.0) sec INR (<1.2) APTT (22.0-30.0) sec ABG pH (7.35-7.45) ABG pCO2 (35-45) mmHg ABG pO2 (83-108) mmHg ABG HCO3 (21-25) mmol/L ABG Total CO2 (19-24) mmol/L ABG O2 Saturation (94-97) % Sodium (137-145) mmol/L Carbon Dioxide (22-30) mmol/L BUN (9-20) mg/dL Creatinine (0.66-1.25) mg/dL Glucose (74-99) mg/dL POC Glucose (mg/dL) (70-110) mg/dL Plasma Lactic Acid Tashi 11.4 H* (0.7-2.0) mmol/L Calcium (8.4-10.2) mg/dL Ionized Calcium Gage (4.5-5.3) mg/dL Total Bilirubin (0.2-1.3) mg/dL AST (17-59) U/L ALT (4-49) U/L Alkaline Phosphatase (38-126) U/L C-Reactive Protein (<1.0) mg/dL Total Protein (6.3-8.2) g/dL Albumin (3.5-5.0) g/dL Procalcitonin (0.02-0.09) ng/mL Crossmatch See Detail 04/21/22 04/21/22 04/21/22 Range/Units 11:50 12:04 12:19 WBC (3.8-10.6) k/uL RBC (4.30-5.90) m/uL Hgb (13.0-17.5) gm/dL Hct (39.0-53.0) % RDW (11.5-15.5) % Neutrophils # (Manual) (1.3-7.7) k/uL Monocytes # (Manual) (0-1.0) k/uL Metamyelocytes # (Man) (0) k/uL Myelocytes # (Manual) (0) k/uL Nucleated RBCs (0-0) /100 WBC PT (9.0-12.0) sec INR (<1.2) APTT (22.0-30.0) sec ABG pH 7.19 L* (7.35-7.45) ABG pCO2 (35-45) mmHg ABG pO2 70 L 79 L (83-108) mmHg ABG HCO3 16 L (21-25) mmol/L ABG Total CO2 17 L 27 H (19-24) mmol/L ABG O2 Saturation 89.1 L (94-97) % Sodium 136 L (137-145) mmol/L Carbon Dioxide 17 L (22-30) mmol/L BUN 45 H (9-20) mg/dL Creatinine 2.00 H (0.66-1.25) mg/dL Glucose 123 H (74-99) mg/dL POC Glucose (mg/dL) (70-110) mg/dL Plasma Lactic Acid Tashi (0.7-2.0) mmol/L Calcium 6.0 L* (8.4-10.2) mg/dL Ionized Calcium Gage (4.5-5.3) mg/dL Total Bilirubin (0.2-1.3) mg/dL AST 3133 H (17-59) U/L ALT 999 H (4-49) U/L Alkaline Phosphatase 167 H (38-126) U/L C-Reactive Protein (<1.0) mg/dL Total Protein 3.7 L (6.3-8.2) g/dL Albumin 1.8 L (3.5-5.0) g/dL Procalcitonin (0.02-0.09) ng/mL Crossmatch 04/21/22 04/21/22 04/21/22 Range/Units 14:38 14:42 15:25 WBC (3.8-10.6) k/uL RBC (4.30-5.90) m/uL Hgb (13.0-17.5) gm/dL Hct (39.0-53.0) % RDW (11.5-15.5) % Neutrophils # (Manual) (1.3-7.7) k/uL Monocytes # (Manual) (0-1.0) k/uL Metamyelocytes # (Man) (0) k/uL Myelocytes # (Manual) (0) k/uL Nucleated RBCs (0-0) /100 WBC PT (9.0-12.0) sec INR (<1.2) APTT (22.0-30.0) sec ABG pH 7.29 L (7.35-7.45) ABG pCO2 (35-45) mmHg ABG pO2 (83-108) mmHg ABG HCO3 18 L (21-25) mmol/L ABG Total CO2 (19-24) mmol/L ABG O2 Saturation (94-97) % Sodium (137-145) mmol/L Carbon Dioxide (22-30) mmol/L BUN (9-20) mg/dL Creatinine (0.66-1.25) mg/dL Glucose (74-99) mg/dL POC Glucose (mg/dL) 156 H (70-110) mg/dL Plasma Lactic Acid Tashi 11.9 H* (0.7-2.0) mmol/L Calcium (8.4-10.2) mg/dL Ionized Calcium Gage (4.5-5.3) mg/dL Total Bilirubin (0.2-1.3) mg/dL AST (17-59) U/L ALT (4-49) U/L Alkaline Phosphatase (38-126) U/L C-Reactive Protein (<1.0) mg/dL Total Protein (6.3-8.2) g/dL Albumin (3.5-5.0) g/dL Procalcitonin (0.02-0.09) ng/mL Crossmatch 04/21/22 04/21/22 04/21/22 Range/Units 15:25 15:25 15:25 WBC 40.1 H (3.8-10.6) k/uL RBC 2.57 L (4.30-5.90) m/uL Hgb 7.3 L (13.0-17.5) gm/dL Hct 22.3 L (39.0-53.0) % RDW 18.5 H (11.5-15.5) % Neutrophils # (Manual) 37.20 H (1.3-7.7) k/uL Monocytes # (Manual) (0-1.0) k/uL Metamyelocytes # (Man) 0.40 H (0) k/uL Myelocytes # (Manual) 0.40 H (0) k/uL Nucleated RBCs 1 H (0-0) /100 WBC PT (9.0-12.0) sec INR (<1.2) APTT (22.0-30.0) sec ABG pH (7.35-7.45) ABG pCO2 (35-45) mmHg ABG pO2 (83-108) mmHg ABG HCO3 (21-25) mmol/L ABG Total CO2 (19-24) mmol/L ABG O2 Saturation (94-97) % Sodium (137-145) mmol/L Carbon Dioxide 18 L (22-30) mmol/L BUN 49 H (9-20) mg/dL Creatinine 1.96 H (0.66-1.25) mg/dL Glucose 141 H (74-99) mg/dL POC Glucose (mg/dL) (70-110) mg/dL Plasma Lactic Acid Tashi (0.7-2.0) mmol/L Calcium 6.5 L (8.4-10.2) mg/dL Ionized Calcium Gage (4.5-5.3) mg/dL Total Bilirubin 1.6 H (0.2-1.3) mg/dL AST 3732 H (17-59) U/L ALT 1046 H (4-49) U/L Alkaline Phosphatase 203 H (38-126) U/L C-Reactive Protein 9.0 H (<1.0) mg/dL Total Protein 4.2 L (6.3-8.2) g/dL Albumin 2.1 L (3.5-5.0) g/dL Procalcitonin (0.02-0.09) ng/mL Crossmatch 04/21/22 04/21/22 04/21/22 Range/Units 15:25 15:25 15:31 WBC (3.8-10.6) k/uL RBC (4.30-5.90) m/uL Hgb (13.0-17.5) gm/dL Hct (39.0-53.0) % RDW (11.5-15.5) % Neutrophils # (Manual) (1.3-7.7) k/uL Monocytes # (Manual) (0-1.0) k/uL Metamyelocytes # (Man) (0) k/uL Myelocytes # (Manual) (0) k/uL Nucleated RBCs (0-0) /100 WBC PT (9.0-12.0) sec INR (<1.2) APTT (22.0-30.0) sec ABG pH (7.35-7.45) ABG pCO2 (35-45) mmHg ABG pO2 (83-108) mmHg ABG HCO3 (21-25) mmol/L ABG Total CO2 (19-24) mmol/L ABG O2 Saturation (94-97) % Sodium (137-145) mmol/L Carbon Dioxide (22-30) mmol/L BUN (9-20) mg/dL Creatinine (0.66-1.25) mg/dL Glucose (74-99) mg/dL POC Glucose (mg/dL) 158 H (70-110) mg/dL Plasma Lactic Acid Tashi (0.7-2.0) mmol/L Calcium (8.4-10.2) mg/dL Ionized Calcium Gage 3.9 L (4.5-5.3) mg/dL Total Bilirubin (0.2-1.3) mg/dL AST (17-59) U/L ALT (4-49) U/L Alkaline Phosphatase (38-126) U/L C-Reactive Protein (<1.0) mg/dL Total Protein (6.3-8.2) g/dL Albumin (3.5-5.0) g/dL Procalcitonin 3.83 H (0.02-0.09) ng/mL Crossmatch 04/21/22 04/21/22 04/21/22 Range/Units 16:29 17:10 18:10 WBC (3.8-10.6) k/uL RBC (4.30-5.90) m/uL Hgb (13.0-17.5) gm/dL Hct (39.0-53.0) % RDW (11.5-15.5) % Neutrophils # (Manual) (1.3-7.7) k/uL Monocytes # (Manual) (0-1.0) k/uL Metamyelocytes # (Man) (0) k/uL Myelocytes # (Manual) (0) k/uL Nucleated RBCs (0-0) /100 WBC PT (9.0-12.0) sec INR (<1.2) APTT (22.0-30.0) sec ABG pH 7.28 L (7.35-7.45) ABG pCO2 (35-45) mmHg ABG pO2 68 L (83-108) mmHg ABG HCO3 20 L (21-25) mmol/L ABG Total CO2 (19-24) mmol/L ABG O2 Saturation 91.5 L (94-97) % Sodium (137-145) mmol/L Carbon Dioxide (22-30) mmol/L BUN (9-20) mg/dL Creatinine (0.66-1.25) mg/dL Glucose (74-99) mg/dL POC Glucose (mg/dL) 189 H 137 H (70-110) mg/dL Plasma Lactic Acid Tashi (0.7-2.0) mmol/L Calcium (8.4-10.2) mg/dL Ionized Calcium Gage (4.5-5.3) mg/dL Total Bilirubin (0.2-1.3) mg/dL AST (17-59) U/L ALT (4-49) U/L Alkaline Phosphatase (38-126) U/L C-Reactive Protein (<1.0) mg/dL Total Protein (6.3-8.2) g/dL Albumin (3.5-5.0) g/dL Procalcitonin (0.02-0.09) ng/mL Crossmatch 04/21/22 04/21/22 04/21/22 Range/Units 18:25 19:12 19:44 WBC 38.3 H (3.8-10.6) k/uL RBC 2.48 L (4.30-5.90) m/uL Hgb 7.1 L (13.0-17.5) gm/dL Hct 21.4 L (39.0-53.0) % RDW 18.3 H (11.5-15.5) % Neutrophils # (Manual) 37.10 H (1.3-7.7) k/uL Monocytes # (Manual) (0-1.0) k/uL Metamyelocytes # (Man) 0.38 H (0) k/uL Myelocytes # (Manual) (0) k/uL Nucleated RBCs 3 H (0-0) /100 WBC PT (9.0-12.0) sec INR (<1.2) APTT (22.0-30.0) sec ABG pH 7.30 L (7.35-7.45) ABG pCO2 (35-45) mmHg ABG pO2 77 L (83-108) mmHg ABG HCO3 20 L (21-25) mmol/L ABG Total CO2 (19-24) mmol/L ABG O2 Saturation (94-97) % Sodium (137-145) mmol/L Carbon Dioxide (22-30) mmol/L BUN (9-20) mg/dL Creatinine (0.66-1.25) mg/dL Glucose (74-99) mg/dL POC Glucose (mg/dL) 147 H (70-110) mg/dL Plasma Lactic Acid Tashi (0.7-2.0) mmol/L Calcium (8.4-10.2) mg/dL Ionized Calcium Gage (4.5-5.3) mg/dL Total Bilirubin (0.2-1.3) mg/dL AST (17-59) U/L ALT (4-49) U/L Alkaline Phosphatase (38-126) U/L C-Reactive Protein (<1.0) mg/dL Total Protein (6.3-8.2) g/dL Albumin (3.5-5.0) g/dL Procalcitonin (0.02-0.09) ng/mL Crossmatch 04/21/22 04/21/22 04/21/22 Range/Units 19:44 19:44 19:44 WBC (3.8-10.6) k/uL RBC (4.30-5.90) m/uL Hgb (13.0-17.5) gm/dL Hct (39.0-53.0) % RDW (11.5-15.5) % Neutrophils # (Manual) (1.3-7.7) k/uL Monocytes # (Manual) (0-1.0) k/uL Metamyelocytes # (Man) (0) k/uL Myelocytes # (Manual) (0) k/uL Nucleated RBCs (0-0) /100 WBC PT (9.0-12.0) sec INR (<1.2) APTT (22.0-30.0) sec ABG pH (7.35-7.45) ABG pCO2 (35-45) mmHg ABG pO2 (83-108) mmHg ABG HCO3 (21-25) mmol/L ABG Total CO2 (19-24) mmol/L ABG O2 Saturation (94-97) % Sodium (137-145) mmol/L Carbon Dioxide 19 L (22-30) mmol/L BUN 50 H (9-20) mg/dL Creatinine 2.11 H (0.66-1.25) mg/dL Glucose 139 H (74-99) mg/dL POC Glucose (mg/dL) (70-110) mg/dL Plasma Lactic Acid Tashi 12.8 H* (0.7-2.0) mmol/L Calcium 6.7 L (8.4-10.2) mg/dL Ionized Calcium Gage 3.8 L (4.5-5.3) mg/dL Total Bilirubin 1.6 H (0.2-1.3) mg/dL AST 3484 H (17-59) U/L ALT 989 H (4-49) U/L Alkaline Phosphatase 226 H (38-126) U/L C-Reactive Protein (<1.0) mg/dL Total Protein 4.1 L (6.3-8.2) g/dL Albumin 2.0 L (3.5-5.0) g/dL Procalcitonin (0.02-0.09) ng/mL Crossmatch 04/21/22 04/21/22 04/21/22 Range/Units 20:22 20:50 21:52 WBC (3.8-10.6) k/uL RBC (4.30-5.90) m/uL Hgb (13.0-17.5) gm/dL Hct (39.0-53.0) % RDW (11.5-15.5) % Neutrophils # (Manual) (1.3-7.7) k/uL Monocytes # (Manual) (0-1.0) k/uL Metamyelocytes # (Man) (0) k/uL Myelocytes # (Manual) (0) k/uL Nucleated RBCs (0-0) /100 WBC PT (9.0-12.0) sec INR (<1.2) APTT (22.0-30.0) sec ABG pH 7.30 L (7.35-7.45) ABG pCO2 (35-45) mmHg ABG pO2 (83-108) mmHg ABG HCO3 19 L (21-25) mmol/L ABG Total CO2 (19-24) mmol/L ABG O2 Saturation 97.4 H (94-97) % Sodium (137-145) mmol/L Carbon Dioxide (22-30) mmol/L BUN (9-20) mg/dL Creatinine (0.66-1.25) mg/dL Glucose (74-99) mg/dL POC Glucose (mg/dL) 163 H 171 H (70-110) mg/dL Plasma Lactic Acid Tashi (0.7-2.0) mmol/L Calcium (8.4-10.2) mg/dL Ionized Calcium Gage (4.5-5.3) mg/dL Total Bilirubin (0.2-1.3) mg/dL AST (17-59) U/L ALT (4-49) U/L Alkaline Phosphatase (38-126) U/L C-Reactive Protein (<1.0) mg/dL Total Protein (6.3-8.2) g/dL Albumin (3.5-5.0) g/dL Procalcitonin (0.02-0.09) ng/mL Crossmatch 04/21/22 04/21/22 04/22/22 Range/Units 22:26 22:52 00:06 WBC 40.7 H (3.8-10.6) k/uL RBC 3.39 L (4.30-5.90) m/uL Hgb 9.9 L D (13.0-17.5) gm/dL Hct 29.1 L (39.0-53.0) % RDW 17.1 H (11.5-15.5) % Neutrophils # (Manual) 38.60 H (1.3-7.7) k/uL Monocytes # (Manual) (0-1.0) k/uL Metamyelocytes # (Man) 0.41 H (0) k/uL Myelocytes # (Manual) (0) k/uL Nucleated RBCs 1 H (0-0) /100 WBC PT (9.0-12.0) sec INR (<1.2) APTT (22.0-30.0) sec ABG pH 7.32 L (7.35-7.45) ABG pCO2 (35-45) mmHg ABG pO2 (83-108) mmHg ABG HCO3 20 L (21-25) mmol/L ABG Total CO2 (19-24) mmol/L ABG O2 Saturation 97.3 H (94-97) % Sodium (137-145) mmol/L Carbon Dioxide (22-30) mmol/L BUN (9-20) mg/dL Creatinine (0.66-1.25) mg/dL Glucose (74-99) mg/dL POC Glucose (mg/dL) 181 H (70-110) mg/dL Plasma Lactic Acid Tashi (0.7-2.0) mmol/L Calcium (8.4-10.2) mg/dL Ionized Calcium Gage (4.5-5.3) mg/dL Total Bilirubin (0.2-1.3) mg/dL AST (17-59) U/L ALT (4-49) U/L Alkaline Phosphatase (38-126) U/L C-Reactive Protein (<1.0) mg/dL Total Protein (6.3-8.2) g/dL Albumin (3.5-5.0) g/dL Procalcitonin (0.02-0.09) ng/mL Crossmatch 04/22/22 04/22/22 04/22/22 Range/Units 00:19 00:19 00:30 WBC (3.8-10.6) k/uL RBC (4.30-5.90) m/uL Hgb (13.0-17.5) gm/dL Hct (39.0-53.0) % RDW (11.5-15.5) % Neutrophils # (Manual) (1.3-7.7) k/uL Monocytes # (Manual) (0-1.0) k/uL Metamyelocytes # (Man) (0) k/uL Myelocytes # (Manual) (0) k/uL Nucleated RBCs (0-0) /100 WBC PT (9.0-12.0) sec INR (<1.2) APTT (22.0-30.0) sec ABG pH 7.31 L (7.35-7.45) ABG pCO2 (35-45) mmHg ABG pO2 82 L (83-108) mmHg ABG HCO3 20 L (21-25) mmol/L ABG Total CO2 (19-24) mmol/L ABG O2 Saturation (94-97) % Sodium (137-145) mmol/L Carbon Dioxide (22-30) mmol/L BUN (9-20) mg/dL Creatinine (0.66-1.25) mg/dL Glucose (74-99) mg/dL POC Glucose (mg/dL) 193 H (70-110) mg/dL Plasma Lactic Acid Tashi 13.5 H* (0.7-2.0) mmol/L Calcium (8.4-10.2) mg/dL Ionized Calcium Gage (4.5-5.3) mg/dL Total Bilirubin (0.2-1.3) mg/dL AST (17-59) U/L ALT (4-49) U/L Alkaline Phosphatase (38-126) U/L C-Reactive Protein (<1.0) mg/dL Total Protein (6.3-8.2) g/dL Albumin (3.5-5.0) g/dL Procalcitonin (0.02-0.09) ng/mL Crossmatch 04/22/22 04/22/22 04/22/22 Range/Units 01:12 02:12 02:20 WBC (3.8-10.6) k/uL RBC (4.30-5.90) m/uL Hgb (13.0-17.5) gm/dL Hct (39.0-53.0) % RDW (11.5-15.5) % Neutrophils # (Manual) (1.3-7.7) k/uL Monocytes # (Manual) (0-1.0) k/uL Metamyelocytes # (Man) (0) k/uL Myelocytes # (Manual) (0) k/uL Nucleated RBCs (0-0) /100 WBC PT (9.0-12.0) sec INR (<1.2) APTT (22.0-30.0) sec ABG pH 7.32 L (7.35-7.45) ABG pCO2 (35-45) mmHg ABG pO2 78 L (83-108) mmHg ABG HCO3 (21-25) mmol/L ABG Total CO2 (19-24) mmol/L ABG O2 Saturation (94-97) % Sodium (137-145) mmol/L Carbon Dioxide (22-30) mmol/L BUN (9-20) mg/dL Creatinine (0.66-1.25) mg/dL Glucose (74-99) mg/dL POC Glucose (mg/dL) 194 H 200 H (70-110) mg/dL Plasma Lactic Acid Tashi (0.7-2.0) mmol/L Calcium (8.4-10.2) mg/dL Ionized Calcium Gage (4.5-5.3) mg/dL Total Bilirubin (0.2-1.3) mg/dL AST (17-59) U/L ALT (4-49) U/L Alkaline Phosphatase (38-126) U/L C-Reactive Protein (<1.0) mg/dL Total Protein (6.3-8.2) g/dL Albumin (3.5-5.0) g/dL Procalcitonin (0.02-0.09) ng/mL Crossmatch 04/22/22 04/22/22 04/22/22 Range/Units 03:35 04:00 04:00 WBC 40.4 H (3.8-10.6) k/uL RBC 3.45 L (4.30-5.90) m/uL Hgb 10.5 L (13.0-17.5) gm/dL Hct 29.6 L (39.0-53.0) % RDW 16.9 H (11.5-15.5) % Neutrophils # (Manual) 38.70 H (1.3-7.7) k/uL Monocytes # (Manual) (0-1.0) k/uL Metamyelocytes # (Man) (0) k/uL Myelocytes # (Manual) (0) k/uL Nucleated RBCs 1 H (0-0) /100 WBC PT (9.0-12.0) sec INR (<1.2) APTT (22.0-30.0) sec ABG pH (7.35-7.45) ABG pCO2 (35-45) mmHg ABG pO2 (83-108) mmHg ABG HCO3 (21-25) mmol/L ABG Total CO2 (19-24) mmol/L ABG O2 Saturation (94-97) % Sodium (137-145) mmol/L Carbon Dioxide 21 L (22-30) mmol/L BUN 53 H (9-20) mg/dL Creatinine 2.26 H (0.66-1.25) mg/dL Glucose 185 H (74-99) mg/dL POC Glucose (mg/dL) 200 H (70-110) mg/dL Plasma Lactic Acid Tashi (0.7-2.0) mmol/L Calcium 6.5 L (8.4-10.2) mg/dL Ionized Calcium Gage 3.7 L (4.5-5.3) mg/dL Total Bilirubin 2.5 H (0.2-1.3) mg/dL AST 3211 H (17-59) U/L ALT 1040 H (4-49) U/L Alkaline Phosphatase 232 H (38-126) U/L C-Reactive Protein (<1.0) mg/dL Total Protein 4.2 L (6.3-8.2) g/dL Albumin 2.0 L (3.5-5.0) g/dL Procalcitonin (0.02-0.09) ng/mL Crossmatch 04/22/22 04/22/22 04/22/22 Range/Units 04:00 04:00 04:17 WBC (3.8-10.6) k/uL RBC (4.30-5.90) m/uL Hgb (13.0-17.5) gm/dL Hct (39.0-53.0) % RDW (11.5-15.5) % Neutrophils # (Manual) (1.3-7.7) k/uL Monocytes # (Manual) (0-1.0) k/uL Metamyelocytes # (Man) (0) k/uL Myelocytes # (Manual) (0) k/uL Nucleated RBCs (0-0) /100 WBC PT 15.6 H (9.0-12.0) sec INR 1.5 H (<1.2) APTT 34.8 H (22.0-30.0) sec ABG pH 7.32 L (7.35-7.45) ABG pCO2 (35-45) mmHg ABG pO2 65 L (83-108) mmHg ABG HCO3 (21-25) mmol/L ABG Total CO2 (19-24) mmol/L ABG O2 Saturation 92.3 L (94-97) % Sodium (137-145) mmol/L Carbon Dioxide (22-30) mmol/L BUN (9-20) mg/dL Creatinine (0.66-1.25) mg/dL Glucose (74-99) mg/dL POC Glucose (mg/dL) (70-110) mg/dL Plasma Lactic Acid Tashi 13.6 H* (0.7-2.0) mmol/L Calcium (8.4-10.2) mg/dL Ionized Calcium Gage (4.5-5.3) mg/dL Total Bilirubin (0.2-1.3) mg/dL AST (17-59) U/L ALT (4-49) U/L Alkaline Phosphatase (38-126) U/L C-Reactive Protein (<1.0) mg/dL Total Protein (6.3-8.2) g/dL Albumin (3.5-5.0) g/dL Procalcitonin (0.02-0.09) ng/mL Crossmatch 04/22/22 04/22/22 04/22/22 Range/Units 04:29 05:16 06:09 WBC (3.8-10.6) k/uL RBC (4.30-5.90) m/uL Hgb (13.0-17.5) gm/dL Hct (39.0-53.0) % RDW (11.5-15.5) % Neutrophils # (Manual) (1.3-7.7) k/uL Monocytes # (Manual) (0-1.0) k/uL Metamyelocytes # (Man) (0) k/uL Myelocytes # (Manual) (0) k/uL Nucleated RBCs (0-0) /100 WBC PT (9.0-12.0) sec INR (<1.2) APTT (22.0-30.0) sec ABG pH (7.35-7.45) ABG pCO2 (35-45) mmHg ABG pO2 (83-108) mmHg ABG HCO3 (21-25) mmol/L ABG Total CO2 (19-24) mmol/L ABG O2 Saturation (94-97) % Sodium (137-145) mmol/L Carbon Dioxide (22-30) mmol/L BUN (9-20) mg/dL Creatinine (0.66-1.25) mg/dL Glucose (74-99) mg/dL POC Glucose (mg/dL) 196 H 190 H 175 H (70-110) mg/dL Plasma Lactic Acid Tashi (0.7-2.0) mmol/L Calcium (8.4-10.2) mg/dL Ionized Calcium Gage (4.5-5.3) mg/dL Total Bilirubin (0.2-1.3) mg/dL AST (17-59) U/L ALT (4-49) U/L Alkaline Phosphatase (38-126) U/L C-Reactive Protein (<1.0) mg/dL Total Protein (6.3-8.2) g/dL Albumin (3.5-5.0) g/dL Procalcitonin (0.02-0.09) ng/mL Crossmatch 04/22/22 04/22/22 04/22/22 Range/Units 06:16 07:08 07:09 WBC (3.8-10.6) k/uL RBC (4.30-5.90) m/uL Hgb (13.0-17.5) gm/dL Hct (39.0-53.0) % RDW (11.5-15.5) % Neutrophils # (Manual) (1.3-7.7) k/uL Monocytes # (Manual) (0-1.0) k/uL Metamyelocytes # (Man) (0) k/uL Myelocytes # (Manual) (0) k/uL Nucleated RBCs (0-0) /100 WBC PT (9.0-12.0) sec INR (<1.2) APTT (22.0-30.0) sec ABG pH 7.33 L (7.35-7.45) ABG pCO2 (35-45) mmHg ABG pO2 59 L* (83-108) mmHg ABG HCO3 (21-25) mmol/L ABG Total CO2 (19-24) mmol/L ABG O2 Saturation 89.4 L (94-97) % Sodium (137-145) mmol/L Carbon Dioxide (22-30) mmol/L BUN (9-20) mg/dL Creatinine (0.66-1.25) mg/dL Glucose (74-99) mg/dL POC Glucose (mg/dL) 168 H (70-110) mg/dL Plasma Lactic Acid Tashi 12.1 H* (0.7-2.0) mmol/L Calcium (8.4-10.2) mg/dL Ionized Calcium Gage (4.5-5.3) mg/dL Total Bilirubin (0.2-1.3) mg/dL AST (17-59) U/L ALT (4-49) U/L Alkaline Phosphatase (38-126) U/L C-Reactive Protein (<1.0) mg/dL Total Protein (6.3-8.2) g/dL Albumin (3.5-5.0) g/dL Procalcitonin (0.02-0.09) ng/mL Crossmatch 04/22/22 04/22/22 04/22/22 Range/Units 08:06 08:23 08:23 WBC 38.1 H (3.8-10.6) k/uL RBC 3.57 L (4.30-5.90) m/uL Hgb 9.8 L (13.0-17.5) gm/dL Hct 30.6 L (39.0-53.0) % RDW 17.3 H (11.5-15.5) % Neutrophils # (Manual) (1.3-7.7) k/uL Monocytes # (Manual) (0-1.0) k/uL Metamyelocytes # (Man) (0) k/uL Myelocytes # (Manual) (0) k/uL Nucleated RBCs (0-0) /100 WBC PT (9.0-12.0) sec INR (<1.2) APTT (22.0-30.0) sec ABG pH (7.35-7.45) ABG pCO2 (35-45) mmHg ABG pO2 (83-108) mmHg ABG HCO3 (21-25) mmol/L ABG Total CO2 (19-24) mmol/L ABG O2 Saturation (94-97) % Sodium (137-145) mmol/L Carbon Dioxide 19 L (22-30) mmol/L BUN 56 H (9-20) mg/dL Creatinine 2.43 H (0.66-1.25) mg/dL Glucose 148 H (74-99) mg/dL POC Glucose (mg/dL) 201 H (70-110) mg/dL Plasma Lactic Acid Tashi (0.7-2.0) mmol/L Calcium 6.8 L (8.4-10.2) mg/dL Ionized Calcium Gage (4.5-5.3) mg/dL Total Bilirubin 2.1 H (0.2-1.3) mg/dL AST (17-59) U/L ALT (4-49) U/L Alkaline Phosphatase 219 H (38-126) U/L C-Reactive Protein (<1.0) mg/dL Total Protein 4.3 L (6.3-8.2) g/dL Albumin 2.1 L (3.5-5.0) g/dL Procalcitonin (0.02-0.09) ng/mL Crossmatch 04/22/22 04/22/22 04/22/22 Range/Units 08:24 08:34 09:10 WBC (3.8-10.6) k/uL RBC (4.30-5.90) m/uL Hgb (13.0-17.5) gm/dL Hct (39.0-53.0) % RDW (11.5-15.5) % Neutrophils # (Manual) (1.3-7.7) k/uL Monocytes # (Manual) (0-1.0) k/uL Metamyelocytes # (Man) (0) k/uL Myelocytes # (Manual) (0) k/uL Nucleated RBCs (0-0) /100 WBC PT (9.0-12.0) sec INR (<1.2) APTT (22.0-30.0) sec ABG pH 7.33 L (7.35-7.45) ABG pCO2 (35-45) mmHg ABG pO2 53 L* (83-108) mmHg ABG HCO3 (21-25) mmol/L ABG Total CO2 (19-24) mmol/L ABG O2 Saturation 84.9 L (94-97) % Sodium (137-145) mmol/L Carbon Dioxide (22-30) mmol/L BUN (9-20) mg/dL Creatinine (0.66-1.25) mg/dL Glucose (74-99) mg/dL POC Glucose (mg/dL) 164 H 154 H (70-110) mg/dL Plasma Lactic Acid Atshi (0.7-2.0) mmol/L Calcium (8.4-10.2) mg/dL Ionized Calcium Gage (4.5-5.3) mg/dL Total Bilirubin (0.2-1.3) mg/dL AST (17-59) U/L ALT (4-49) U/L Alkaline Phosphatase (38-126) U/L C-Reactive Protein (<1.0) mg/dL Total Protein (6.3-8.2) g/dL Albumin (3.5-5.0) g/dL Procalcitonin (0.02-0.09) ng/mL Crossmatch 04/22/22 Range/Units 09:46 WBC (3.8-10.6) k/uL RBC (4.30-5.90) m/uL Hgb (13.0-17.5) gm/dL Hct (39.0-53.0) % RDW (11.5-15.5) % Neutrophils # (Manual) (1.3-7.7) k/uL Monocytes # (Manual) (0-1.0) k/uL Metamyelocytes # (Man) (0) k/uL Myelocytes # (Manual) (0) k/uL Nucleated RBCs (0-0) /100 WBC PT (9.0-12.0) sec INR (<1.2) APTT (22.0-30.0) sec ABG pH 7.26 L (7.35-7.45) ABG pCO2 52 H (35-45) mmHg ABG pO2 45 L* (83-108) mmHg ABG HCO3 (21-25) mmol/L ABG Total CO2 25 H (19-24) mmol/L ABG O2 Saturation 73.1 L (94-97) % Sodium (137-145) mmol/L Carbon Dioxide (22-30) mmol/L BUN (9-20) mg/dL Creatinine (0.66-1.25) mg/dL Glucose (74-99) mg/dL POC Glucose (mg/dL) (70-110) mg/dL Plasma Lactic Acid Tashi (0.7-2.0) mmol/L Calcium (8.4-10.2) mg/dL Ionized Calcium Gage (4.5-5.3) mg/dL Total Bilirubin (0.2-1.3) mg/dL AST (17-59) U/L ALT (4-49) U/L Alkaline Phosphatase (38-126) U/L C-Reactive Protein (<1.0) mg/dL Total Protein (6.3-8.2) g/dL Albumin (3.5-5.0) g/dL Procalcitonin (0.02-0.09) ng/mL Crossmatch Microbiology - Last 24 Hours (Table) 04/20/22 23:57 Gram Stain - Preliminary Sputum Sputum Culture - Preliminary Assessment and Plan Plan: Severe multivessel coronary artery disease Status post CABG 4 -Post CABG 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 -Aspirin and Plavix held sec to bleeding -Continue statin V.tach -On lidocaine gtt Shock, with organ dysfunction, could be sec to ischemic bowel vs. cardiac vs. sec to GI bleeding -Started on broad spectrum abx, cefepime and flagyl. Given one dose of vanco as well. -Bicarb gtt -Monitor lactic acid -Continue to monitor hgb Insulin-dependent diabetes, on insulin pump -insulin gtt. Postop anemia, with complicated GI bleeding -Was given 2 units, will continue to monitor hgb Leukocytosis Could be sec to ischemic bowel, vs shock Continue to monitor On abx as above. Acute kidney injury, Worse, avoid nephrotoxic meds and continue to monitor. Thrombocytopenia, resolved Chronic: History of cirrhosis History of Leonard's esophagus History of iron deficiency anemia Asthma He is switched to no code after discussion with family.
[2022-04-22 12:51] VITALS: BP 90/50; PULSE 65
[2022-04-22 14:27] LABS: Band Neutrophils % 4 %; Basophils # (M) 0.37 k/uL (0-0.2); Eosinophils # (M) 0.37 k/uL (0-0.7); Metamyelocytes # (M) 0.37 k/uL (0); Metamyelocytes % 1 %; Monocytes # (M) 0.37 k/uL (0-1.0); Myelocytes # (M) 0.37 k/uL (0); Myelocytes % 1 %; Neutrophils % (M) 89 %; Nucleated Red Blood Cells 2 /100 WBC (0-0); Total Cells Counted 200; WBC 37.4 k/uL (3.8-10.6)
[2022-04-22 14:28] LABS: Polychromasia Present; Toxic Granulation Present
[2022-04-22] MEDS ORDERED: CEFEPIME 1 GM in SODIUM CHLORIDE 0.9% 50 ML IVPB SCH (15:00)
--- NOTE | 2022-04-25 15:12 | CDI ---
Documentation Clarification Form Date: 04/25/2022 02:48:24 PM From: Livier Randle Phone: Admit Date: 04/11/2022 05:40:00 AM Patient Name: Negrito Eastman Visit Number: [id number] Discharge Date: 04/22/2022 12:40:00 PM ATTENTION: The Clinical Documentation Specialists (CDI) and [facility] Coding Staff appreciate your assistance in clarifying documentation. Please respond to the clarification below the line at the bottom and electronically sign. The CDI & [facility] Coding staff will review the response and follow-up if needed. Please note: Queries are made part of the Legal Health Record. If you have any questions, please contact the author of this message via ITS. Dr. Tawanda Dorman Your patient has the documented diagnosis of unspecified CHF per Dr. Langley Saeeds Consult Note 04/21/22. Additional information regarding the type and acuity of CHF is requested. History/Risk Factors: 77yo M, CAD sp CABG, HTN, HLD, DMII w neuropathy and PVD, Hx smoker, COPD, Liver cirrhosis, Leonard's esophagus, Chronic MOISES, Essential tremors, Depression, SHERIF, FHx CAD, PO ABLA, Urinary retention, Medical debility, AHRF, LT pleural effusion, GIB Clinical Indicators: VS/Pulse OX: 100 04/11/22 94 04/12/22 88 04/17/22 Echocardiogram Results: TTE with cardiology demonstrating normal LV size and function, EF 55-60%, MR and TR and increased pulmonary artery systolic pressure of 37 mmHg. Chest x ray: 04/11/22 New tubes and lines are satisfactory in position. New mild to moderate interstitial edema and small bilateral pleural effusions with LT greater than RT bibasilar acute atelectasis and/or developing infiltrate. No pneumothorax evident with LT-sided CT in place. Chest X Ray: 04/16/22 Heart mildly enlarged. Median sternotomy wires along with plate and screw fixation and post-CABG clips. Mild patchy retrocardiac density is present with blunting of the LT costophrenic angle, similar to prior. Impression: Similar mild cardiomegaly with trace LT effusion and some patchy retrocardiac atelectasis/infiltrate. Treatment: We will follow on clinical condition and cultures to further adjust medication if needed In your professional opinion, can you please clarify the presence on admission, acuity and type of CHF if known? [ ] Present on admission [ X ] Not Present on admission [ ] Acute Systolic Heart Failure (reduced EF) [ ] Chronic Systolic Heart Failure (reduced EF) [ ] Acute on Chronic Systolic Heart Failure (reduced EF) [ ] Acute Diastolic Heart Failure (preserved EF) [ ] Chronic Diastolic Heart Failure (preserved EF) [ ] Acute on Chronic Diastolic Heart Failure (preserved EF) [ ] Acute Systolic & Diastolic Heart Failure [ ] Chronic Systolic & Diastolic Heart Failure [ ] Acute on Chronic Heart Failure Systolic & Diastolic Heart Failure [ X ] Other, please specify___PATIENT DID NOT HAVE CHF [ ] Unable to determine (Template Last Revised: June 2020) MTDD
== END 2022-04-22 12:40 | disposition expired | DRG 235 ==
LOC: 2ORMAIN 05:40 → 2SICU 12:57
PROVIDERS: ADMIT Thoracic Surgery (Cardiothoracic Vascular Surgery); ATTEND Thoracic Surgery (Cardiothoracic Vascular Surgery)
PROC: 06BQ4ZZ Excision of Left Saphenous Vein, Percutaneous Endoscopic Approach (ICD-10-PCS; 2022-04-11)
PROC: 06BP4ZZ Excision of Right Saphenous Vein, Percutaneous Endoscopic Approach (ICD-10-PCS; 2022-04-11)
PROC: 0211093 Bypass Coronary Artery, Two Arteries from Coronary Artery with Autologous Venous Tissue, Open Approach (ICD-10-PCS; 2022-04-11)
PROC: 03BY4ZZ Excision of Upper Artery, Percutaneous Endoscopic Approach (ICD-10-PCS; 2022-04-11)
PROC: 02L70CK Occlusion of Left Atrial Appendage with Extraluminal Device, Open Approach (ICD-10-PCS; 2022-04-11)
PROC: 0WJ Anatomical Regions, General, Inspection (ICD-10-PCS; 2022-04-11)
PROC: 02100A3 Bypass Coronary Artery, One Artery from Coronary Artery with Autologous Arterial Tissue, Open Approach (ICD-10-PCS; principal; 2022-04-11 08:00)
PROC: 03BC3ZZ Excision of Left Radial Artery, Percutaneous Approach (ICD-10-PCS; 2022-04-11 08:00)
PROC: 02100Z9 Bypass Coronary Artery, One Artery from Left Internal Mammary, Open Approach (ICD-10-PCS; 2022-04-11 08:00)
PROC: 3E033XZ Introduction of Vasopressor into Peripheral Vein, Percutaneous Approach (ICD-10-PCS; 2022-04-12)
PROC: 5A09357 Assistance with Respiratory Ventilation, Less than 24 Consecutive Hours, Continuous Positive Airway Pressure (ICD-10-PCS; 2022-04-12)
PROC: 5A0955A Assistance with Respiratory Ventilation, Greater than 96 Consecutive Hours, High Flow/Velocity Cannula (ICD-10-PCS; 2022-04-12)
PROC: 0W9B3ZZ Drainage of Left Pleural Cavity, Percutaneous Approach (ICD-10-PCS; 2022-04-20)
PROC: 30233N1 Transfusion of Nonautologous Red Blood Cells into Peripheral Vein, Percutaneous Approach (ICD-10-PCS; 2022-04-20)
PROC: 0D9670Z Drainage of Stomach with Drainage Device, Via Natural or Artificial Opening (ICD-10-PCS; 2022-04-20)
PROC: 02HV33Z Insertion of Infusion Device into Superior Vena Cava, Percutaneous Approach (ICD-10-PCS; 2022-04-21)
PROC: 5A1945Z Respiratory Ventilation, 24-96 Consecutive Hours (ICD-10-PCS; 2022-04-21)
PROC: 0BH18EZ Insertion of Endotracheal Airway into Trachea, Via Natural or Artificial Opening Endoscopic (ICD-10-PCS; 2022-04-21)
PROC: 30233R1 Transfusion of Nonautologous Platelets into Peripheral Vein, Percutaneous Approach (ICD-10-PCS; 2022-04-21)
PROC: 5A12012 Performance of Cardiac Output, Single, Manual (ICD-10-PCS; 2022-04-21)
PROC: 6A550Z2 Pheresis of Platelets, Single (ICD-10-PCS; 2022-04-22)
DX: I25.119 Atherosclerotic heart disease of native coronary artery with unspecified angina pectoris (principal); A41.9 Sepsis, unspecified organism; J96.01 Acute respiratory failure with hypoxia; K72.00 Acute and subacute hepatic failure without coma; R57.9 Shock, unspecified; I31.39 Other pericardial effusion (noninflammatory); K55.9 Vascular disorder of intestine, unspecified; J90 Pleural effusion, not elsewhere classified; N17.9 Acute kidney failure, unspecified; I47.20 Ventricular tachycardia, unspecified; E87.21 Acute metabolic acidosis; K92.1 Melena; J98.11 Atelectasis; Z16.11 Resistance to penicillins; Z16.19 Resistance to other specified beta lactam antibiotics; Z16.29 Resistance to other single specified antibiotic; D62 Acute posthemorrhagic anemia; Z66 Do not resuscitate; Z51.5 Encounter for palliative care; I46.2 Cardiac arrest due to underlying cardiac condition; J44.9 Chronic obstructive pulmonary disease, unspecified; K74.60 Unspecified cirrhosis of liver; G20 Parkinson's disease; K76.0 Fatty (change of) liver, not elsewhere classified; E11.51 Type 2 diabetes mellitus with diabetic peripheral angiopathy without gangrene; I10 Essential (primary) hypertension; E11.42 Type 2 diabetes mellitus with diabetic polyneuropathy; D50.9 Iron deficiency anemia, unspecified; E66.9 Obesity, unspecified; F32.A Depression, unspecified; I08.1 Rheumatic disorders of both mitral and tricuspid valves; Z68.37 Body mass index [BMI] 37.0-37.9, adult; D69.6 Thrombocytopenia, unspecified; E83.51 Hypocalcemia; R26.89 Other abnormalities of gait and mobility; R33.9 Retention of urine, unspecified; R45.87 Impulsiveness; R53.81 Other malaise; K22.70 Barrett's esophagus without dysplasia; E78.5 Hyperlipidemia, unspecified; H91.90 Unspecified hearing loss, unspecified ear; R01.1 Cardiac murmur, unspecified; G47.33 Obstructive sleep apnea (adult) (pediatric); R60.0 Localized edema; K44.9 Diaphragmatic hernia without obstruction or gangrene; F41.1 Generalized anxiety disorder; M19.90 Unspecified osteoarthritis, unspecified site; G89.29 Other chronic pain; M54.9 Dorsalgia, unspecified; G25.0 Essential tremor; B96.89 Other specified bacterial agents as the cause of diseases classified elsewhere; Z96.41 Presence of insulin pump (external) (internal); Z87.891 Personal history of nicotine dependence; Z88.0 Allergy status to penicillin; Z79.899 Other long term (current) drug therapy; Z87.19 Personal history of other diseases of the digestive system; Z79.82 Long term (current) use of aspirin; Z79.51 Long term (current) use of inhaled steroids; Z79.4 Long term (current) use of insulin; Z79.02 Long term (current) use of antithrombotics/antiplatelets; Z82.49 Family history of ischemic heart disease and other diseases of the circulatory system
CPT/HCPCS: 36410; 36600; 71045; 74176; 76604; 76937; 80048; 80053; 81001; 82140; 82150; 82330; 82803; 82805; 83605; 83690; 83735; 84132; 84145; 85025; 85027; 85384; 85520; 85610; 85730; 86140; 86850; 86891; 86900; 86901; 86920; 87040; 87070; 87077; 87186; 87205; 87324; 94002; 94003; 94640; 94660; 94667; 94668